=== PATIENT | male | born 1955 | race Caucasian/White ===

== ENCOUNTER 2018-08-27 18:14 | Emergency (ER) | payer OTHER, SELFPAY ==
[2018-08-27 18:15] VITALS: BP 131/78; PULSE 102; RESP 16; TEMP 36.4; O2SAT 99; BMI 38.3
--- NOTE | 2018-08-27 19:31 | ED.DCSUM_ITS ---
- ER Visit Summary Date of Service: 08/27/18 Chief Complaint: [Abscess left groin] History of Present Illness: The patient is a 62 M [presents the emergency department complaint of an abscess to the left groin that he has had for the last 2 days. Patient denies any fevers. He has had some sweats. Patient is not had these before.] Physical Examination: [HEENT-PERRLA, EOMI. Cranial nerves II through XII grossly intact. TMs clear. Mucous membranes moist. No adenopathy. Cardiovascular-regular rate and rhythm without murmur or ectopy Lungs-clear to auscultation, chest wall stable without crepitus or subcu emphysema Abdomen-normoactive bowel sounds, soft, nontender, no rebound or rigidity, no peritoneal signs. Extremities-intact ?4, normal range of motion, normal pulses, atraumatic. Left groin-patient has a soft tissue abscess measuring approximately 3 cm in diameter with surrounding erythema and cellulitis. Central portion slightly fluctuant.] Test Results: [None indicated] Emergency Department Course and Treatment: [Incision and drainage was undertaken of the left groin abscess. Wound was sterilely draped and prepped. Wound cleansed with Shur-Clens. Using 1% lidocaine total of 3 cc used to anesthetize the area locally. Using an 11 blade a 2.5 cm incision was made with large amount of purulent free-flowing debris expressed. I used curved hemostats undermines soft tissues. I did pack the wound loosely with small amount of packing. Clean dressing was applied. Patient was given a dose of Keflex and Bactrim in the emergency department.] Treatment Plan: [Patient advised to follow-up with primary care physician for wound check in 3-5 days. I did outline the area of cellulitis with permanent marker. Patient will be started on Keflex and Bactrim. He will be given a prescription for [place] for pain.] Disposition: [Discharged home in stable condition. Patient advised to return if worsening pain, fever, increased swelling, or condition should worsen anyway.] Impression: [Abscess to groin with incision and drainage Cellulitis left groin] This note was generated with [employer] dictation software. It may contain incorrect words, spelling, and punctuation that were not noted in review of the chart prior to signing ED Disposition - Plan for ED Patient: [facility]errals[facility] [Primary Care Provider] -
--- NOTE | 2018-08-27 19:31 | ED.DEP ---
ED Disposition - Plan for ED Patient: Instructions: ED Abscess IandD Prescriptions: Hydrocodone Bitart/Apap 5-325 [[place] 5MG-325MG] 1 tab PO Q4H PRN PRN 2 Days #10 tab PRN Reason: Pain Cephalexin [Keflex] 500 mg PO Q6 #40 cap Smz/Tmp Ds [Bactrim Ds] 1 tab PO BID #20 tab [facility] [[facility] - 3-5 Days
--- NOTE | 2018-08-27 19:32 | ED.DEP ---
ED Disposition - Plan for ED Patient: Instructions: ED Abscess IandD Prescriptions: Hydrocodone Bitart/Apap 5-325 [[place] 5MG-325MG] 1 tab PO Q4H PRN PRN 2 Days #10 tab PRN Reason: Pain Cephalexin [Keflex] 500 mg PO Q6 #40 cap Smz/Tmp Ds [Bactrim Ds] 1 tab PO BID #20 tab [facility] [[facility] Provider] - 3-5 Days
[2018-08-27 19:41] VITALS: TEMP 36.3
[2018-08-27] MEDS: Smz/Tmp Ds Tablet 1 TABLET PO (19:43)
[2018-08-27] MEDS: Cephalexin 250 MG Capsule 500 MG PO (19:43)
[2018-08-27 19:46] VITALS: PULSE 82; RESP 16
== END 2018-08-27 19:47 | disposition home or self-care (01) ==
PROVIDERS: Emergency Provider Emergency Medicine
DX: L03.314 Cellulitis of groin (principal); I25.10 Atherosclerotic heart disease of native coronary artery without angina pectoris; I10 Essential (primary) hypertension; Z72.0 Tobacco use; Z79.01 Long term (current) use of anticoagulants; Z86.711 Personal history of pulmonary embolism
CPT/HCPCS: 10060; 99283

== ENCOUNTER 2021-12-20 10:57 | Emergency (ER) | payer OTHER, SELFPAY ==
[2021-12-20 10:58] VITALS: BP 139/96; PULSE 83; RESP 20; TEMP 35.7; O2SAT 99; BMI 36.9
--- NOTE | 2021-12-20 11:14 | VDLE_ITS ---
Reason For Study: Pain RIGHT CFV is compressible, spontaneous, phasic, competent and demonstrates normal augmentation. FV is compressible, spontaneous, phasic, competent and demonstrates normal augmentation. RT PerV is compressible. Acute deep vein thrombosis is noted in the PopV, T/P Trunk, PTV and SoleusV. Superficial vein thrombosis is noted in the GSV at prox thigh. Procedure This is a venous duplex using B-mode, color flow and spectral Doppler. Exam performed portable in ED. A preliminary report was called and/or faxed to John. VL/Venous Duplex US, Unilateral Interpretation Summary Acute deep venous thrombosis right popliteal, tibioperoneal trunk, posterior ti bial, and soleus veins. Superficial thrombophlebitis right great saphenous vein in the proximal thigh. Ordering Physician: Princess Lopez Referring Physician: [facility] Performed By: Helene Young RVT
--- NOTE | 2021-12-20 11:14 | EDS_ITS ---
HPI History of Present Illness Chief Complaint: Lower Extremity Injury Detail of Chief Complaint: Right leg pain, concern for DVT Informant: patient Onset/Context/Timing Onset: Days (3 to 4 days) Context: Gradual Onset Current Severity: Moderate Maximum Severity: Moderate Narrative Narrative: Patient presents secondary to right leg pain. He reports significant pain in his right calf when he walks over the past 3 days especially. He does have some chronic back pain but states it is not any worse than baseline. He has a history of pulmonary embolism. He stopped his blood thinners 3 or 4 months ago because it was giving him diarrhea. [facility] Medical History Coronary artery disease Hyperlipidemia Hypertension Pulmonary embolus Home Medications albuterol sulfate 90 mcg/actuation aerosol inhaler (Ventolin HFA) 2 puff inhalation Q4H PRN PRN SOB, wheezing ##3 10/26/14 [Rx Last Taken Unknown] aspirin 81 mg chewable tablet 81 mg PO DAILY@0800 ##90 10/26/14 [Rx Last Taken Unknown] atorvastatin 40 mg tablet 40 mg PO QHS ##90 10/26/14 [Rx Last Taken Unknown] carvedilol 3.125 mg tablet 3.125 mg PO BID ##90 10/26/14 [Rx Last Taken Unknown] apixaban 5 mg (74 tabs) tablets in a dose pack (Eliquis DVT-PE Treat 30D Start) 5 mg PO BID #74 tabs 12/20/21 [Rx Last Taken Unknown] Allergy/AdvReac Type Severity Reaction Status Date / Time No Known Allergies Allergy Verified 12/20/21 10:57 Surgical History S/P PTCA (percutaneous transluminal coronary angioplasty) Social History Smoking Status: Current every day smoker tobacco type: cigarettes ROS ROS ED Constitutional Constitutional ED: Denies chills or fever(s) Eyes Eyes: Denies change in vision or discharge from eye(s) ENT ENT ED: Denies discharge from eye(s), rhinorrhea or sore throat Cardiovascular Cardiovascular: Denies chest pain or palpitations Respiratory/Chest Respiratory/Chest: Denies cough or dyspnea Gastrointestinal Gastrointestinal: Denies abdominal pain, diarrhea, nausea or vomiting Genitourinary Genitourinary ED: Denies difficulty urinating or dysuria Musculoskeletal Musculoskeletal: Reports back pain and extremity pain Integumentary Denies Abrasions or rash Neurologic Neurologic: Denies headache(s) or weakness Allergic/Immunologic Allergic/Immunologic ED: Denies lip swelling or urticaria EXAM Physical Exam Const Vital Signs: 12/20/21 10:58 Temperature 96.2 F L Temperature Source Temporal Pulse Rate 83 Respiratory Rate 20 H Blood Pressure 139/96 H Blood Pressure Mean 110 Pulse Ox 99 Oxygen Delivery Method Room Air Positive well nourished and well developed General Appearance ED: well developed HEENT Reports normocephalic and head/scalp atraumatic Eyes PERRL and EOMs intact bilaterally Neck supple Chest Wall inspection of chest normal and palpation of chest normal Resp normal respiratory effort Resp Narrative: Mild expiratory wheezes Cardio regular rate and regular rhythm GI normal to inspection, nondistended, normoactive bowel sounds Palpation: soft Back/Spine no CVA tenderness Extremity Extremity Narrative: Mild tenderness in the right calf. No overlying skin change. Minimal edema. Strong distal pulses. No bony tenderness of the knee or hip. Neuro oriented x3 and no sensory deficits noted Sensorium / Orientation: alert Motor Exam: strength 5/5 throughout Psych mental status grossly normal Skin no rashes or lesions noted MDM MDM MDM Narrative Medical decision making narrative: Venous ultrasound of the right lower extremity obtained. Treatment and Re-Evaluation Narrative: Venous ultrasound does reveal positive right lower extremity DVT in the popliteal, PT trunk, soleus. Test results discussed with the patient. He had diarrhea on Xarelto so we will try him on Eliquis. First dose will be given here and prescription sent to the pharmacy. Discharge Plan Triage Chief Complaint: Lower Extremity Injury ED Provider: Princess Lopez Dx/Rx/DC Orders Clinical Impression: DVT (deep venous thrombosis) Instructions: ED Deep Vein Thrombosis (DVT) Prescriptions: New Eliquis DVT-PE Treat 30D Start 5 mg (74 tabs) tablets,dose pack 5 mg PO BID Qty: 74 0RF No Action atorvastatin 40 MG tablet 40 mg PO QHS Qty: 90 0RF Label Comments: cholesterol carvedilol 3.125 MG tablet 3.125 mg PO BID Qty: 90 0RF Label Comments: heart/blood pressure aspirin 81 MG tablet,chewable 81 mg PO DAILY@0800 Qty: 90 0RF Label Comments: heart/blood thinner albuterol sulfate [Ventolin HFA] 1 INHALER inhaler 2 puff inhalation Q4H PRN PRN (Reason: SOB, wheezing) Qty: 3 0RF Label Comments: breathing [facility]errals[place] [facility] [Primary Care Provider] - 1-2 Weeks Disposition Disposition: Home, Self Care
[2021-12-20] MEDS: APIXABAN 5 MG TABLET 10 MG PO (11:54)
[2021-12-20 12:13] VITALS: RESP 18
== END 2021-12-20 12:13 | disposition home or self-care (01) ==
LOC: ED 12:10
PROVIDERS: Emergency Provider Emergency Medicine; Visit Provider Emergency Medicine
DX: I82.409 Acute embolism and thrombosis of unspecified deep veins of unspecified lower extremity (principal); G89.29 Other chronic pain; I25.10 Atherosclerotic heart disease of native coronary artery without angina pectoris; E78.5 Hyperlipidemia, unspecified; I10 Essential (primary) hypertension; M54.9 Dorsalgia, unspecified; R19.7 Diarrhea, unspecified; F17.210 Nicotine dependence, cigarettes, uncomplicated
CPT/HCPCS: 93971; 99283

== ENCOUNTER 2022-11-19 05:02 | Emergency (ER) | payer OTHER, MEDICARE, SELFPAY ==
[2022-11-19 05:03] VITALS: BP 154/99; PULSE 77; RESP 20; TEMP 35.2; O2SAT 100; BMI 35.7
--- NOTE | 2022-11-19 05:11 | CT_ITS ---
We are attempting to reach an attending provider to discuss findings. An addendum with communication details will be sent when the communication is complete. CT angiogram of the abdominal aorta with bilateral lower extremity runoff with 3-dimensional reconstructions, with MIP reconstructions Clinical history: ? Arterial occlusion right leg Technique: Multiple helical CT images were obtained from the domes the diaphragms to level of feet after intravenous administration of iodinated contrast with transaxial, coronal and sagittal multiplanar reconstructions. On a separate workstation, 3-dimensional reconstructions were obtained of the arterial vasculature using volume rendering technique and maximal intensity projection technique as per departmental protocol. This CT exam has been performed using low dose vendor recommended protocols to limit radiation exposure to As Low As Reasonably Achievable. RADIATION DOSAGE (If Supplied By Facility): CTDIvol = ( 10.02 ) mGy, DLP = ( 1779.02 ) mGycm COMPARISON: FINDINGS: ABDOMEN / PELVIS: The visualized portions of the liver are unremarkable. The visualized portions of the spleen and pancreas appear to be within normal limits. The gallbladder is unremarkable. The kidneys are unremarkable. The visualized bowel is unremarkable. The pelvic structures appear normal. VASCULAR STRUCTURES: Moderate atherosclerotic disease with good opacification and patency of the visualized abdominal aorta. There appears to be good opacification and patency of the celiac trunk, superior mesenteric artery. There appears to be good opacification and patency noted of the RIGHT and LEFT renal arteries. There appears to be good opacification and patency noted of the inferior mesenteric artery. ARTERIAL STRUCTURES OF THE RIGHT LOWER EXTREMITY: Common iliac artery: Appears patent with good opacification. External iliac artery: Appears patent with good opacification. Internal iliac arteries: Appears patent with good opacification. Common femoral artery: Appears patent with good opacification. Superficial femoral arteries: Occluded in the mid thigh. Popliteal artery: Nonopacified. Anterior tibial artery: Nonopacified. Posterior tibial artery: Nonopacified. Peroneal artery: Nonopacified. ARTERIAL STRUCTURES OF THE LEFT LOWER EXTREMITY: Common iliac artery: Appears patent with good opacification. External iliac artery: Appears patent with good opacification. Internal iliac arteries: Appears patent with good opacification. Common femoral artery: Appears patent with good opacification. Superficial femoral arteries: There is severe atherosclerotic disease of the left superficial femoral artery with maximal stenosis is estimated at 80% near the adductor canal.. Popliteal artery: Mild atherosclerotic disease with good opacification. Anterior tibial artery: Appears patent with good opacification. Posterior tibial artery: Appears patent with good opacification. Peroneal artery: Appears patent with opacification. CT/CTA Abd w/Runoff W/WO Contrast IMPRESSION: There is occlusion of the right superficial femoral artery in the mid thigh. There is severe atherosclerotic disease of the left superficial femoral artery with maximal stenosis is estimated at 80% near the adductor canal. There is open wound in the right inguinal region with wound VAC. Electronically Signed: Jaime Wang MD at 7:20 EDT ,
[2022-11-19] MEDS: Morphine 4 MG/ML Syringe IV (05:17)
[2022-11-19] MEDS: 0.9% Normal Saline 1,000 ML 999 ML IV (05:17)
[2022-11-19] MEDS: Ondansetron 4 MG/2 ML Vial IV (05:17)
[2022-11-19 05:40] LABS: Absolute Lymphocyte Count 2.41 X10^3/uL (0.83-4.51); Absolute Neutrophil Count 5.4 X10^3/uL (2.0-7.7); Basophil# 0.09 X10^3/uL; Eosinophil# 0.18 X10^3/uL; Hematocrit 46.5 % (40-54); Hemoglobin 14.9 g/dL (13.0-16.5); Lymphocyte # 2.41 X10^3/ul (0.83-4.51); Lymphocyte % 26.2 % (19-41); Mean Corpuscular Hgb 28.9 pg (27.0-32.0); Mean Corpuscular Volume 90.3 fL (80-94); Mean Platelet Vol. 9.9 fl (6.2-12.0); Monocyte# 1.04 X10^3/uL; Monocyte% 11.3 % (0-10); NRBC Flagged by Analyzer 0 % (0-5); Neutrophil # 5.44 X10^3/uL (2.7-7.7); Platelet Count 238 K/mm3 (150-450); RBC Distribution Width CV 14.6 % (11.6-14.6); RBC Distribution Width SD 48.6 fl (35.1-43.9); Red Blood Count 5.15 M/mm3 (4.6-6.2); White Blood Count 9.2 K/mm3 (4.4-11.0)
[2022-11-19 05:48] LABS: International Normalized Ratio 1.5; Partial Thromboplast Time 27.7 Seconds (24.1-36.2); Prothrombin Time (Protime)PT. 17.7 SECONDS (11.7-14.9)
[2022-11-19 05:53] LABS: Anion Gap 6 (5-15); BUN 20 mg/dL (7-18); BUN/Creat Ratio 24.8 RATIO (10-20); Chloride 107 mmol/L (98-107); Creatinine, Serum 0.81 mg/dL (0.70-1.30); EST Glomerular Filtration Rate 102 mL/min (>60); Est Glom Filt Rate - Afr Amer 123 mL/min (>60); Estimated Creatinine Clearance 95.55 ml/min; Glucose 223 mg/dL (74-106); Potassium 3.9 mmol/L (3.5-5.1); Sodium Level 136 mmol/L (136-145)
[2022-11-19 06:02] LABS: Lactic Acid 2.3 mmol/L (0.4-1.9)
[2022-11-19] MEDS: HYDROmorphone 1 MG/ML Syringe IV (06:22)
--- NOTE | 2022-11-19 06:39 | EDS_ITS ---
HPI History of Present Illness Chief Complaint: Lower Extremity Injury Narrative Narrative: Patient is a 67-year-old male with past medical history of peripheral vascular disease/arterial occlusion who is currently on Coumadin. He was at the [facility] roughly 2 months ago where he had a endovascular procedure for revascularization of his right lower leg. Patient states has been doing well and he went to bed last night around 11 PM. He states he woke around 1 AM with increased pain to his right leg. He states he took an oxycodone to see if this would help. He states that initially of the pain seemed to improve but then began to worsen. Secondary to his he called EMS and presents for evaluation. Patient states has been taking his medications as [facility] Medical History Coronary artery disease Hyperlipidemia Hypertension Pulmonary embolus Home Medications albuterol sulfate 90 mcg/actuation aerosol inhaler (Ventolin HFA) 2 puff inhalation Q4H PRN PRN SOB, wheezing ##3 10/26/14 [Rx Last Taken Unknown] aspirin 81 mg chewable tablet 81 mg PO DAILY@0800 ##90 10/26/14 [Rx Last Taken Unknown] atorvastatin 40 mg tablet 40 mg PO QHS ##90 10/26/14 [Rx Last Taken Unknown] carvedilol 3.125 mg tablet 3.125 mg PO BID ##90 10/26/14 [Rx Last Taken Unknown] apixaban 5 mg (74 tabs) tablets in a dose pack (Eliquis DVT-PE Treat 30D Start) 5 mg PO BID #74 tabs 12/20/21 [Rx Last Taken Unknown] Allergy/AdvReac Type Severity Reaction Status Date / Time heparin Allergy PT UNSURE Verified 11/19/22 05:45 OF REACTION nortriptyline Allergy PT UNSURE Verified 11/19/22 05:45 OF REACTION rivaroxaban Allergy PT UNSURE Verified 11/19/22 05:45 OF REACTION Surgical History S/P PTCA (percutaneous transluminal coronary angioplasty) Social History Smoking Status: Current every day smoker tobacco type: cigarettes ROS ROS ED Constitutional Constitutional ED: Denies chills or fever(s) ENT ENT ED: Denies sore throat Cardiovascular Cardiovascular: Denies chest pain or palpitations Respiratory/Chest Respiratory/Chest: Denies cough or dyspnea Gastrointestinal Gastrointestinal: Denies abdominal pain, diarrhea, nausea or vomiting Genitourinary Genitourinary ED: Denies dysuria Musculoskeletal Musculoskeletal: Reports other Details: Positive right leg pain Integumentary Reports other Details: Positive right lower leg discoloration Neurologic Neurologic: Reports weakness; Denies headache(s) or paresthesias Hematologic/Lymphatic Hematologic/Lymphatic: Reports easy bleeding and easy bruising EXAM Physical Exam Const Vital Signs: 11/19/22 05:03 Temperature 95.4 F L Temperature Source Temporal Pulse Rate 77 Respiratory Rate 20 H Blood Pressure 154/99 H Blood Pressure Mean 117 Pulse Ox 100 Oxygen Delivery Method Room Air Positive well nourished and well developed General Appearance ED: well developed HEENT Reports moist mucous membranes Eyes PERRL and EOMs intact bilaterally Neck supple Resp normal respiratory effort Resp Narrative: Breath sounds are diminished throughout with rhonchi in the bilateral bases consistent with history of smoking but no signs of respiratory distress Cardio regular rate and regular rhythm Rate: other Other Details: Radial pulses are plus 2 out of 4 bilaterally are equal and symmetric GI non-tender and non-distended GI Narrative: Abdomen is soft nontender nondistended with hypoactive bowel sounds no voluntary guarding or rigidity no pulsatile mass or fluid with Auscultation: hypoactive bowel sounds Palpation: soft Extremity Extremity Narrative: Patient's right lower extremity is mottled compared to the left beginning around the mid ward region down to the toes. The temperature is cooler on the right lower leg compared to the left but it is not cold to touch. Capillary refill is less than 2 seconds on the right lower leg as well at the great toe. Patient still reports normal sensation of the right and left leg. The patient is able to lift right leg against gravity and he is able to plantar and dorsiflex at the ankle but strength and range of motion in this activity is decreased on the right compared to left. Please note I cannot palpate or Doppler pulses in the posterior tibial dorsalis pedis or popliteal region of the right lower leg. Neuro oriented x3 and CN's II-XII intact bilaterally Sensorium / Orientation: alert Psych mental status grossly normal Skin Skin Narrative: Soft tissue changes to the right lower leg as documented above Also patient has a open wound in the right groin from his previous endovascular procedure with packing in place. No secondary changes to suggest infection at the site. MDM MDM MDM Narrative Medical decision making narrative: Patient presented to the ER hypertensive but otherwise with stable vital. He reported he awoke with spontaneous pain in his right leg without trauma. Differential diagnosis includes DVT versus arterial occlusion versus bony injury versus cellulitis or abscess. As the patient has history of peripheral arterial disease and he has coolness and mottling acute arterial occlusion is the most likely diagnosis. However as his capillary refill is less than 2 seconds and the temperature difference is just cool not cold and sensation and muscular activity still present this would indicate patient has collateral circulation. Initially heparin was ordered but the patient has history of heparin-induced thrombocytopenia and therefore the vascular surgeon recommended against this. He did recommend argatroban and the pharmacy was contacted we do not carry this medication and therefore cannot be given. [facility] Marina and he will be sent to their facility for further evaluation of his vascular occlusion. We discussed flying the patient to their facility as he has had symptoms now for almost 6 hours but they do not have a helipad and therefore he will go by EMS to their center for further care History & Record Review Discussion w/independent historian: EMS personnel and Patient Lab Data Attestation: I reviewed the patient's lab results. Labs: Laboratory Results - last 24 hr 11/19/22 11/19/22 11/19/22 05:15 05:15 05:15 WBC 9.2 RBC 5.15 Hgb 14.9 Hct 46.5 MCV 90.3 MCH 28.9 MCHC 32.0 RDW Std Deviation 48.6 H RDW Coeff of Yesi 14.6 Plt Count 238 MPV 9.9 Immature Gran % (Auto) 0.500 Neut % (Auto) 59.0 Lymph % (Auto) 26.2 [place] % (Auto) 11.3 H Eos % (Auto) 2.0 Baso % (Auto) 1.0 Absolute Neuts (auto) 5.4 Absolute Lymphs (auto) 2.41 Nucleated RBC % 0 PT 17.7 H INR 1.5 APTT 27.7 Sodium 136 Potassium 3.9 Chloride 107 Carbon Dioxide 23.0 Anion Gap 6 BUN 20 H Creatinine 0.81 Estim Creat Clear Calc 95.55 Est GFR (MDRD) Af Amer 123 Est GFR (MDRD) Non-Af 102 BUN/Creatinine Ratio 24.8 H Glucose 223 H Lactic Acid Calcium 9.0 11/19/22 05:15 WBC RBC Hgb Hct MCV MCH MCHC RDW Std Deviation RDW Coeff of Yesi Plt Count MPV Immature Gran % (Auto) Neut % (Auto) Lymph % (Auto) [place] % (Auto) Eos % (Auto) Baso % (Auto) Absolute Neuts (auto) Absolute Lymphs (auto) Nucleated RBC % PT INR APTT Sodium Potassium Chloride Carbon Dioxide Anion Gap BUN Creatinine Estim Creat Clear Calc Est GFR (MDRD) Af Amer Est GFR (MDRD) Non-Af BUN/Creatinine Ratio Glucose Lactic Acid 2.3 H* Calcium Management Discussion w/another healthcare provider: Community Marketing Coordinator Critical Care Time Critical Care Time: Yes Critical care time (excluding procedures): Discussing w/Patient &/or Family/Refrigeration Mechanic Helper, Discussing w/Consultants, Arranging Admission or Transfer and - (Please note critical care time of 33 minutes) Discharge Plan Triage Chief Complaint: Lower Extremity Injury ED Provider: Christopher Fontaine Dx/Rx/DC Orders Clinical Impression: Arterial occlusion, lower extremity, Hypertension, Current use of terminal operator anticoagulation Prescriptions: No Action atorvastatin 40 MG tablet 40 mg PO QHS Qty: 90 0RF Label Comments: cholesterol carvedilol 3.125 MG tablet 3.125 mg PO BID Qty: 90 0RF Label Comments: heart/blood pressure aspirin 81 MG tablet,chewable 81 mg PO DAILY@0800 Qty: 90 0RF Label Comments: heart/blood thinner albuterol sulfate [Ventolin HFA] 1 INHALER inhaler 2 puff inhalation Q4H PRN PRN (Reason: SOB, wheezing) Qty: 3 0RF Label Comments: breathing Eliquis DVT-PE Treat 30D Start 5 mg (74 tabs) tablets,dose pack 5 mg PO BID Qty: 74 0RF [facility] [[facility] Provider] - Disposition Disposition: Acute Care Hospital Discharge Location: Department of [facility]
--- NOTE | 2022-11-19 06:44 | ED.RN ---
OBTAINED PERMISSION FROM PT TO TALK TO DTDaryl ALEGRIA. SHE WAS UPDATED ON PT'S CONDITION AND HIS ESTIMATED DEPARTURE TIME.
[2022-11-19 06:56] VITALS: BP 142/70; PULSE 74; RESP 20; O2SAT 99
--- NOTE | 2022-11-19 06:59 | ED.RN ---
report called to [facility]
[2022-11-19 09:36] LABS: Reflex Lactate? Y
== END 2022-11-19 07:05 | disposition short-term general hospital (02) ==
PROVIDERS: Emergency Provider Emergency Medicine; Visit Provider Emergency Medicine
DX: I70.90 Unspecified atherosclerosis (principal); I73.9 Peripheral vascular disease, unspecified; I25.10 Atherosclerotic heart disease of native coronary artery without angina pectoris; Z79.01 Long term (current) use of anticoagulants; I10 Essential (primary) hypertension; F17.210 Nicotine dependence, cigarettes, uncomplicated; E78.5 Hyperlipidemia, unspecified; Z79.899 Other long term (current) drug therapy; Z79.82 Long term (current) use of aspirin; Z98.61 Coronary angioplasty status
CPT/HCPCS: 75635; 80048; 83605; 85025; 85610; 85730; 99285; J7030; Q9967; A4216; J2405

== ENCOUNTER → 2023-12-10 | Outpatient (REF) | payer MEDICARE, SELFPAY ==
[2023-12-10 08:59] LABS: Absolute Lymphocyte Count 1.35 X10^3/uL (0.83-4.51); Absolute Neutrophil Count 5.9 X10^3/uL (2.0-7.7); Basophil# 0.09 X10^3/uL; Basophil% 1.1 % (0-1); Eosinophil# 0.26 X10^3/uL; Eosinophils% 3.1 % (0-5); Hematocrit 44.9 % (40-54); Hemoglobin 13.6 g/dL (13.0-16.5); Lymphocyte # 1.35 X10^3/ul (0.83-4.51); Lymphocyte % 16.1 % (19-41); Mean Corp Hgb Conc 30.3 g/dL (32-36); Mean Corpuscular Hgb 26.8 pg (27.0-32.0); Mean Corpuscular Volume 88.6 fL (80-94); Mean Platelet Vol. 10.4 fl (6.2-12.0); Monocyte# 0.75 X10^3/uL; Monocyte% 8.9 % (0-10); NRBC Flagged by Analyzer 0 % (0-5); Neutrophil # 5.89 X10^3/uL (2.7-7.7); Platelet Count 243 K/mm3 (150-450); RBC Distribution Width CV 16.5 % (11.6-14.6); RBC Distribution Width SD 53.8 fl (35.1-43.9); Red Blood Count 5.07 M/mm3 (4.6-6.2); White Blood Count 8.4 K/mm3 (4.4-11.0)
[2023-12-10 09:49] LABS: Anion Gap 6 (5-15); BUN 11 mg/dL (7-18); BUN/Creat Ratio 12.8 RATIO (10-20); Calcium,Total 9.1 mg/dL (8.5-10.1); Chloride 105 mmol/L (98-107); Creatinine, Serum 0.86 mg/dL (0.70-1.30); EST Glomerular Filtration Rate 94 mL/min (>60); Est Glom Filt Rate - Afr Amer 114 mL/min (>60); Glucose 103 mg/dL (74-106); Potassium 4.4 mmol/L (3.5-5.1); Sodium Level 137 mmol/L (136-145)
== END ==
LOC: OLS.WHLTCC 04:00
PROVIDERS: Referring Provider Internal Medicine; Visit Provider Internal Medicine
DX: E11.9 Type 2 diabetes mellitus without complications (principal)
CPT/HCPCS: 36415; 80048; 85025

== ENCOUNTER → 2023-12-14 | Outpatient (REF) | payer MEDICARE, SELFPAY ==
[2023-12-14 07:50] LABS: Absolute Lymphocyte Count 1.65 X10^3/uL (0.83-4.51); Absolute Neutrophil Count 5.8 X10^3/uL (2.0-7.7); Basophil# 0.06 X10^3/uL; Basophil% 0.7 % (0-1); Eosinophil# 0.18 X10^3/uL; Eosinophils% 2.1 % (0-5); Hematocrit 44.8 % (40-54); Hemoglobin 13.4 g/dL (13.0-16.5); Lymphocyte # 1.65 X10^3/ul (0.83-4.51); Lymphocyte % 19.3 % (19-41); Mean Corp Hgb Conc 29.9 g/dL (32-36); Mean Corpuscular Hgb 26.3 pg (27.0-32.0); Mean Platelet Vol. 10.4 fl (6.2-12.0); Monocyte% 9.4 % (0-10); NRBC Flagged by Analyzer 0 % (0-5); Neutrophil # 5.81 X10^3/uL (2.7-7.7); Neutrophil % 67.9 % (47-70); Platelet Count 261 K/mm3 (150-450); RBC Distribution Width CV 16.1 % (11.6-14.6); RBC Distribution Width SD 52.6 fl (35.1-43.9); Red Blood Count 5.09 M/mm3 (4.6-6.2); White Blood Count 8.6 K/mm3 (4.4-11.0)
[2023-12-14 08:08] LABS: Anion Gap 5 (5-15); BUN 8 mg/dL (7-18); BUN/Creat Ratio 11.4 RATIO (10-20); Calcium,Total 9.1 mg/dL (8.5-10.1); Chloride 107 mmol/L (98-107); EST Glomerular Filtration Rate 120 mL/min (>60); Est Glom Filt Rate - Afr Amer 145 mL/min (>60); Glucose 85 mg/dL (74-106); Sodium Level 138 mmol/L (136-145)
== END ==
LOC: OLS.WHLEAS 05:00
PROVIDERS: Visit Provider Nurse Practitioner Adult Health
DX: E11.9 Type 2 diabetes mellitus without complications (principal)
CPT/HCPCS: 36415; 80048; 85025

== ENCOUNTER → 2023-12-24 | Outpatient (REF) | payer MEDICARE, SELFPAY ==
[2023-12-24 09:59] LABS: Absolute Lymphocyte Count 1.69 X10^3/uL (0.83-4.51); Absolute Neutrophil Count 4.3 X10^3/uL (2.0-7.7); Basophil# 0.07 X10^3/uL; Eosinophil# 0.15 X10^3/uL; Eosinophils% 2.1 % (0-5); Hemoglobin 13.8 g/dL (13.0-16.5); Lymphocyte # 1.69 X10^3/ul (0.83-4.51); Mean Corpuscular Hgb 26.3 pg (27.0-32.0); Mean Corpuscular Volume 87.8 fL (80-94); Mean Platelet Vol. 10.4 fl (6.2-12.0); Monocyte# 0.82 X10^3/uL; Monocyte% 11.6 % (0-10); NRBC Flagged by Analyzer 0 % (0-5); Neutrophil # 4.29 X10^3/uL (2.7-7.7); Neutrophil % 60.9 % (47-70); Platelet Count 259 K/mm3 (150-450); RBC Distribution Width CV 15.9 % (11.6-14.6); RBC Distribution Width SD 51.3 fl (35.1-43.9); Red Blood Count 5.24 M/mm3 (4.6-6.2); White Blood Count 7.1 K/mm3 (4.4-11.0)
[2023-12-24 10:15] LABS: Anion Gap 6 (5-15); BUN 16 mg/dL (7-18); BUN/Creat Ratio 18.9 RATIO (10-20); Calcium,Total 9.3 mg/dL (8.5-10.1); Chloride 102 mmol/L (98-107); Creatinine, Serum 0.85 mg/dL (0.70-1.30); EST Glomerular Filtration Rate 96 mL/min (>60); Est Glom Filt Rate - Afr Amer 116 mL/min (>60); Glucose 101 mg/dL (74-106); Potassium 3.6 mmol/L (3.5-5.1); Sodium Level 139 mmol/L (136-145)
== END ==
LOC: OLS.WHLEAS 04:00
PROVIDERS: Referring Provider Internal Medicine; Visit Provider Internal Medicine
DX: E11.9 Type 2 diabetes mellitus without complications (principal)
CPT/HCPCS: 36415; 80048; 85025

== ENCOUNTER → 2023-12-28 | Outpatient (REF) | payer MEDICARE, SELFPAY ==
[2023-12-28 07:14] LABS: Absolute Lymphocyte Count 1.77 X10^3/uL (0.83-4.51); Absolute Neutrophil Count 4.4 X10^3/uL (2.0-7.7); Basophil# 0.06 X10^3/uL; Basophil% 0.8 % (0-1); Eosinophils% 1.4 % (0-5); Hematocrit 48.1 % (40-54); Hemoglobin 14.4 g/dL (13.0-16.5); Lymphocyte # 1.77 X10^3/ul (0.83-4.51); Lymphocyte % 24.6 % (19-41); Mean Corp Hgb Conc 29.9 g/dL (32-36); Mean Corpuscular Hgb 25.8 pg (27.0-32.0); Mean Corpuscular Volume 86.2 fL (80-94); Mean Platelet Vol. 10.5 fl (6.2-12.0); Monocyte# 0.85 X10^3/uL; Monocyte% 11.8 % (0-10); NRBC Flagged by Analyzer 0 % (0-5); Neutrophil # 4.38 X10^3/uL (2.7-7.7); Neutrophil % 60.8 % (47-70); Platelet Count 221 K/mm3 (150-450); RBC Distribution Width SD 50.5 fl (35.1-43.9); Red Blood Count 5.58 M/mm3 (4.6-6.2); White Blood Count 7.2 K/mm3 (4.4-11.0)
[2023-12-28 07:41] LABS: Anion Gap 7 (5-15); BUN 15 mg/dL (7-18); BUN/Creat Ratio 16.4 RATIO (10-20); Calcium,Total 9.2 mg/dL (8.5-10.1); Chloride 103 mmol/L (98-107); Creatinine, Serum 0.91 mg/dL (0.70-1.30); EST Glomerular Filtration Rate 88 mL/min (>60); Est Glom Filt Rate - Afr Amer 107 mL/min (>60); Glucose 129 mg/dL (74-106); Potassium 3.7 mmol/L (3.5-5.1); Sodium Level 137 mmol/L (136-145)
== END ==
LOC: OLS.WHLEAS 05:00
PROVIDERS: Referring Provider Nurse Practitioner Adult Health; Visit Provider Nurse Practitioner Adult Health
DX: E11.9 Type 2 diabetes mellitus without complications (principal)
CPT/HCPCS: 36415; 80048; 85025

== ENCOUNTER → 2024-01-09 | Outpatient (REF) | payer MEDICARE, SELFPAY ==
[2024-01-09 08:57] LABS: Hemoglobin A1c 6.3 % (3.8-5.6)
[2024-01-09 09:02] LABS: AST(SGOT) 26 U/L (15-37); Alanine Aminotransfer ALT/SGPT 19 U/L (16-61); Alkaline Phosphatase 93 U/L (45-117); Bilirubin, Direct 0.07 mg/dL (0.00-0.30)
== END ==
LOC: OLS.WHLEAS 05:00
PROVIDERS: Referring Provider Internal Medicine; Visit Provider Internal Medicine
DX: E11.9 Type 2 diabetes mellitus without complications (principal)
CPT/HCPCS: 36415; 80076; 83036

== ENCOUNTER → 2024-01-11 | Outpatient (REF) | payer MEDICARE, SELFPAY ==
[2024-01-11 06:34] LABS: Basophil# 0.07 X10^3/uL; Basophil% 0.9 % (0-1); Eosinophil# 0.13 X10^3/uL; Eosinophils% 1.7 % (0-5); Hematocrit 45.6 % (40-54); Lymphocyte % 22.9 % (19-41); Mean Corp Hgb Conc 30.7 g/dL (32-36); Mean Corpuscular Hgb 26.2 pg (27.0-32.0); Mean Corpuscular Volume 85.4 fL (80-94); Mean Platelet Vol. 10.7 fl (6.2-12.0); Monocyte# 0.79 X10^3/uL; Monocyte% 10.1 % (0-10); NRBC Flagged by Analyzer 0 % (0-5); Neutrophil # 5.02 X10^3/uL (2.7-7.7); Neutrophil % 63.9 % (47-70); Platelet Count 223 K/mm3 (150-450); RBC Distribution Width CV 15.9 % (11.6-14.6); RBC Distribution Width SD 49.2 fl (35.1-43.9); Red Blood Count 5.34 M/mm3 (4.6-6.2); White Blood Count 7.9 K/mm3 (4.4-11.0)
[2024-01-11 06:53] LABS: Anion Gap 5 (5-15); BUN 12 mg/dL (7-18); BUN/Creat Ratio 15.2 RATIO (10-20); Chloride 107 mmol/L (98-107); Creatinine, Serum 0.79 mg/dL (0.70-1.30); EST Glomerular Filtration Rate 104 mL/min (>60); Est Glom Filt Rate - Afr Amer 126 mL/min (>60); Glucose 112 mg/dL (74-106); Sodium Level 139 mmol/L (136-145)
== END ==
LOC: OLS.WHLEAS 05:00
PROVIDERS: Visit Provider Internal Medicine
DX: E11.9 Type 2 diabetes mellitus without complications (principal)
CPT/HCPCS: 36415; 80048; 85025

== ENCOUNTER → 2024-01-18 | Outpatient (REF) | payer MEDICARE, SELFPAY ==
[2024-01-18 08:13] LABS: Anion Gap 3 (5-15); BUN 10 mg/dL (7-18); BUN/Creat Ratio 11.7 RATIO (10-20); Calcium,Total 9.2 mg/dL (8.5-10.1); Chloride 109 mmol/L (98-107); Creatinine, Serum 0.86 mg/dL (0.70-1.30); EST Glomerular Filtration Rate 95 mL/min (>60); Est Glom Filt Rate - Afr Amer 115 mL/min (>60); Glucose 116 mg/dL (74-106); Potassium 4.4 mmol/L (3.5-5.1); Sodium Level 141 mmol/L (136-145)
[2024-01-18 08:16] LABS: Absolute Neutrophil Count 5.4 X10^3/uL (2.0-7.7); Basophil# 0.06 X10^3/uL; Basophil% 0.7 % (0-1); Eosinophil# 0.15 X10^3/uL; Eosinophils% 1.8 % (0-5); Hematocrit 49.1 % (40-54); Hemoglobin 14.5 g/dL (13.0-16.5); Lymphocyte % 23.6 % (19-41); Mean Corp Hgb Conc 29.5 g/dL (32-36); Mean Corpuscular Hgb 26.4 pg (27.0-32.0); Mean Corpuscular Volume 89.4 fL (80-94); Mean Platelet Vol. 10.8 fl (6.2-12.0); Monocyte# 0.83 X10^3/uL; Monocyte% 9.8 % (0-10); NRBC Flagged by Analyzer 0 % (0-5); Neutrophil # 5.39 X10^3/uL (2.7-7.7); Neutrophil % 63.6 % (47-70); Platelet Count 241 K/mm3 (150-450); RBC Distribution Width CV 16.3 % (11.6-14.6); RBC Distribution Width SD 53.5 fl (35.1-43.9); Red Blood Count 5.49 M/mm3 (4.6-6.2); White Blood Count 8.5 K/mm3 (4.4-11.0)
== END ==
LOC: OLS.WHLEAS 05:00
PROVIDERS: Visit Provider Internal Medicine
DX: E11.9 Type 2 diabetes mellitus without complications (principal)
CPT/HCPCS: 36415; 80048; 85025

== ENCOUNTER → 2024-01-25 05:00 | Outpatient (REF) | payer MEDICARE, SELFPAY ==
[2024-01-25 07:17] LABS: Absolute Lymphocyte Count 1.81 X10^3/uL (0.83-4.51); Absolute Neutrophil Count 6.1 X10^3/uL (2.0-7.7); Basophil# 0.04 X10^3/uL; Basophil% 0.4 % (0-1); Eosinophil# 0.28 X10^3/uL; Hematocrit 45.3 % (40-54); Hemoglobin 13.6 g/dL (13.0-16.5); Lymphocyte # 1.81 X10^3/ul (0.83-4.51); Lymphocyte % 19.6 % (19-41); Mean Corpuscular Hgb 26.4 pg (27.0-32.0); Mean Corpuscular Volume 87.8 fL (80-94); Mean Platelet Vol. 10.6 fl (6.2-12.0); Monocyte# 0.99 X10^3/uL; Monocyte% 10.7 % (0-10); NRBC Flagged by Analyzer 0 % (0-5); Neutrophil # 6.09 X10^3/uL (2.7-7.7); Platelet Count 200 K/mm3 (150-450); RBC Distribution Width SD 51.8 fl (35.1-43.9); Red Blood Count 5.16 M/mm3 (4.6-6.2); White Blood Count 9.2 K/mm3 (4.4-11.0)
[2024-01-25 07:50] LABS: Anion Gap 7 (5-15); BUN 19 mg/dL (7-18); Calcium,Total 8.9 mg/dL (8.5-10.1); Chloride 107 mmol/L (98-107); Creatinine, Serum 0.83 mg/dL (0.70-1.30); EST Glomerular Filtration Rate 99 mL/min (>60); Est Glom Filt Rate - Afr Amer 119 mL/min (>60); Glucose 127 mg/dL (74-106); Potassium 4.2 mmol/L (3.5-5.1); Sodium Level 136 mmol/L (136-145)
== END ==
LOC: OLS.WHLEAS 05:00
PROVIDERS: Visit Provider Internal Medicine
DX: E11.9 Type 2 diabetes mellitus without complications (principal)
CPT/HCPCS: 36415; 80048; 85025

== ENCOUNTER → 2024-02-07 11:40 | Outpatient (REF) | payer MEDICARE, SELFPAY | LOC: OLS.WHLTSB 11:40 | PROVIDERS: Visit Provider Internal Medicine | DX: Z89.511 Acquired absence of right leg below knee (principal) | CPT/HCPCS: 87070; 87077; 87186; 87205 ==

== ENCOUNTER → 2024-02-15 05:00 | Outpatient (REF) | payer MEDICARE, SELFPAY ==
[2024-02-15 08:48] LABS: Absolute Lymphocyte Count 2.27 X10^3/uL (0.83-4.51); Absolute Neutrophil Count 6.5 X10^3/uL (2.0-7.7); Basophil# 0.07 X10^3/uL; Basophil% 0.7 % (0-1); Eosinophil# 0.07 X10^3/uL; Eosinophils% 0.7 % (0-5); Hematocrit 49.4 % (40-54); Hemoglobin 14.8 g/dL (13.0-16.5); Lymphocyte # 2.27 X10^3/ul (0.83-4.51); Lymphocyte % 22.4 % (19-41); Mean Corpuscular Hgb 26.1 pg (27.0-32.0); Mean Corpuscular Volume 87.3 fL (80-94); Mean Platelet Vol. 10.7 fl (6.2-12.0); Monocyte# 1.12 X10^3/uL; Monocyte% 11.1 % (0-10); NRBC Flagged by Analyzer 0 % (0-5); Neutrophil # 6.54 X10^3/uL (2.7-7.7); Neutrophil % 64.6 % (47-70); Platelet Count 218 K/mm3 (150-450); RBC Distribution Width CV 16.7 % (11.6-14.6); RBC Distribution Width SD 52.7 fl (35.1-43.9); Red Blood Count 5.66 M/mm3 (4.6-6.2); White Blood Count 10.1 K/mm3 (4.4-11.0)
[2024-02-15 09:16] LABS: Anion Gap 5 (5-15); BUN 20 mg/dL (7-18); BUN/Creat Ratio 18.5 RATIO (10-20); Calcium,Total 9.2 mg/dL (8.5-10.1); Chloride 103 mmol/L (98-107); Creatinine, Serum 1.08 mg/dL (0.70-1.30); EST Glomerular Filtration Rate 72 mL/min (>60); Est Glom Filt Rate - Afr Amer 88 mL/min (>60); Glucose 137 mg/dL (74-106); Potassium 4.7 mmol/L (3.5-5.1); Sodium Level 138 mmol/L (136-145)
== END ==
LOC: OLS.WHLEAS 05:00
PROVIDERS: Visit Provider Internal Medicine
DX: E11.9 Type 2 diabetes mellitus without complications (principal)
CPT/HCPCS: 36415; 80048; 85025

== ENCOUNTER → 2024-02-22 05:00 | Outpatient (REF) | payer MEDICARE, SELFPAY ==
[2024-02-22 07:18] LABS: Absolute Lymphocyte Count 1.82 X10^3/uL (0.83-4.51); Absolute Neutrophil Count 5.5 X10^3/uL (2.0-7.7); Basophil# 0.05 X10^3/uL; Basophil% 0.6 % (0-1); Eosinophil# 0.11 X10^3/uL; Eosinophils% 1.3 % (0-5); Hematocrit 45.2 % (40-54); Hemoglobin 13.6 g/dL (13.0-16.5); Lymphocyte # 1.82 X10^3/ul (0.83-4.51); Mean Corp Hgb Conc 30.1 g/dL (32-36); Mean Corpuscular Hgb 26.4 pg (27.0-32.0); Mean Corpuscular Volume 87.6 fL (80-94); Mean Platelet Vol. 10.4 fl (6.2-12.0); Monocyte# 0.82 X10^3/uL; Monocyte% 9.9 % (0-10); NRBC Flagged by Analyzer 0 % (0-5); Neutrophil # 5.45 X10^3/uL (2.7-7.7); Neutrophil % 65.7 % (47-70); Platelet Count 209 K/mm3 (150-450); RBC Distribution Width CV 16.6 % (11.6-14.6); RBC Distribution Width SD 53.1 fl (35.1-43.9); Red Blood Count 5.16 M/mm3 (4.6-6.2); White Blood Count 8.3 K/mm3 (4.4-11.0)
[2024-02-22 10:07] LABS: Anion Gap 7 (5-15); BUN 15 mg/dL (7-18); BUN/Creat Ratio 18.2 RATIO (10-20); Chloride 107 mmol/L (98-107); Creatinine, Serum 0.82 mg/dL (0.70-1.30); EST Glomerular Filtration Rate 99 mL/min (>60); Est Glom Filt Rate - Afr Amer 120 mL/min (>60); Glucose 147 mg/dL (74-106); Potassium 4.1 mmol/L (3.5-5.1); Sodium Level 139 mmol/L (136-145)
== END ==
LOC: OLS.WHLEAS 05:00
PROVIDERS: Visit Provider Internal Medicine
DX: E11.9 Type 2 diabetes mellitus without complications (principal)
CPT/HCPCS: 36415; 80048; 85025

== ENCOUNTER → 2024-02-29 | Outpatient (REF) | payer MEDICARE, SELFPAY ==
[2024-02-29 07:09] LABS: Absolute Lymphocyte Count 1.83 X10^3/uL (0.83-4.51); Absolute Neutrophil Count 3.7 X10^3/uL (2.0-7.7); Basophil# 0.04 X10^3/uL; Basophil% 0.6 % (0-1); Eosinophils% 1.6 % (0-5); Hematocrit 43.6 % (40-54); Hemoglobin 13.6 g/dL (13.0-16.5); Lymphocyte # 1.83 X10^3/ul (0.83-4.51); Lymphocyte % 28.9 % (19-41); Mean Corp Hgb Conc 31.2 g/dL (32-36); Mean Corpuscular Hgb 26.7 pg (27.0-32.0); Mean Corpuscular Volume 85.5 fL (80-94); Mean Platelet Vol. 10.9 fl (6.2-12.0); Monocyte# 0.65 X10^3/uL; Monocyte% 10.3 % (0-10); NRBC Flagged by Analyzer 0 % (0-5); Neutrophil # 3.68 X10^3/uL (2.7-7.7); Neutrophil % 58.1 % (47-70); Platelet Count 187 K/mm3 (150-450); RBC Distribution Width CV 16.4 % (11.6-14.6); RBC Distribution Width SD 51.3 fl (35.1-43.9); White Blood Count 6.3 K/mm3 (4.4-11.0)
[2024-02-29 07:37] LABS: Anion Gap 6 (5-15); BUN 12 mg/dL (7-18); BUN/Creat Ratio 16.2 RATIO (10-20); Calcium,Total 8.8 mg/dL (8.5-10.1); Chloride 110 mmol/L (98-107); Creatinine, Serum 0.74 mg/dL (0.70-1.30); EST Glomerular Filtration Rate 112 mL/min (>60); Est Glom Filt Rate - Afr Amer 135 mL/min (>60); Glucose 111 mg/dL (74-106); Potassium 4.3 mmol/L (3.5-5.1); Sodium Level 138 mmol/L (136-145)
== END ==
LOC: OLS.WHLEAS 05:00
PROVIDERS: Visit Provider Internal Medicine
DX: E11.9 Type 2 diabetes mellitus without complications (principal)
CPT/HCPCS: 36415; 80048; 85025

== ENCOUNTER → 2024-03-07 | Outpatient (REF) | payer MEDICARE, SELFPAY ==
[2024-03-07 08:14] LABS: Absolute Lymphocyte Count 1.92 X10^3/uL (0.83-4.51); Absolute Neutrophil Count 3.6 X10^3/uL (2.0-7.7); Basophil# 0.05 X10^3/uL; Basophil% 0.8 % (0-1); Eosinophil# 0.11 X10^3/uL; Eosinophils% 1.7 % (0-5); Hematocrit 46.9 % (40-54); Hemoglobin 14.4 g/dL (13.0-16.5); Lymphocyte # 1.92 X10^3/ul (0.83-4.51); Lymphocyte % 30.1 % (19-41); Mean Corp Hgb Conc 30.7 g/dL (32-36); Mean Corpuscular Hgb 26.3 pg (27.0-32.0); Mean Corpuscular Volume 85.6 fL (80-94); Mean Platelet Vol. 10.7 fl (6.2-12.0); Monocyte# 0.65 X10^3/uL; Monocyte% 10.2 % (0-10); NRBC Flagged by Analyzer 0 % (0-5); Neutrophil # 3.63 X10^3/uL (2.7-7.7); Neutrophil % 56.9 % (47-70); Platelet Count 190 K/mm3 (150-450); RBC Distribution Width CV 17.1 % (11.6-14.6); RBC Distribution Width SD 53.5 fl (35.1-43.9); Red Blood Count 5.48 M/mm3 (4.6-6.2); White Blood Count 6.4 K/mm3 (4.4-11.0)
[2024-03-07 08:33] LABS: Anion Gap 5 (5-15); BUN 12 mg/dL (7-18); BUN/Creat Ratio 15.3 RATIO (10-20); Calcium,Total 9.5 mg/dL (8.5-10.1); Chloride 108 mmol/L (98-107); Creatinine, Serum 0.78 mg/dL (0.70-1.30); EST Glomerular Filtration Rate 105 mL/min (>60); Est Glom Filt Rate - Afr Amer 127 mL/min (>60); Glucose 116 mg/dL (74-106); Sodium Level 140 mmol/L (136-145)
== END ==
LOC: OLS.WHLEAS 05:00
PROVIDERS: Visit Provider Internal Medicine
DX: E11.9 Type 2 diabetes mellitus without complications (principal); E78.5 Hyperlipidemia, unspecified
CPT/HCPCS: 36415; 80048; 85025

== ENCOUNTER → 2024-03-10 | Outpatient (REF) | payer MEDICARE, SELFPAY | LOC: OLS.WHLEAS 12:30 | PROVIDERS: Visit Provider Internal Medicine | DX: L03.115 Cellulitis of right lower limb (principal) | CPT/HCPCS: 87070; 87077; 87186; 87205 ==

== ENCOUNTER → 2024-03-14 05:00 | Outpatient (REF) | payer MEDICARE, SELFPAY ==
[2024-03-14 09:23] LABS: Basophil# 0.05 X10^3/uL; Basophil% 0.7 % (0-1); Eosinophil# 0.23 X10^3/uL; Eosinophils% 3.3 % (0-5); Hematocrit 45.2 % (40-54); Hemoglobin 13.6 g/dL (13.0-16.5); Lymphocyte % 26.9 % (19-41); Mean Corp Hgb Conc 30.1 g/dL (32-36); Mean Corpuscular Volume 86.4 fL (80-94); Mean Platelet Vol. 10.8 fl (6.2-12.0); Monocyte# 0.83 X10^3/uL; Monocyte% 11.7 % (0-10); NRBC Flagged by Analyzer 0 % (0-5); Neutrophil # 3.99 X10^3/uL (2.7-7.7); Neutrophil % 56.4 % (47-70); Platelet Count 202 K/mm3 (150-450); RBC Distribution Width CV 17.5 % (11.6-14.6); RBC Distribution Width SD 55.5 fl (35.1-43.9); Red Blood Count 5.23 M/mm3 (4.6-6.2); White Blood Count 7.1 K/mm3 (4.4-11.0)
[2024-03-14 09:54] LABS: Anion Gap 6 (5-15); BUN 11 mg/dL (7-18); BUN/Creat Ratio 13.7 RATIO (10-20); Calcium,Total 8.7 mg/dL (8.5-10.1); Chloride 105 mmol/L (98-107); EST Glomerular Filtration Rate 102 mL/min (>60); Est Glom Filt Rate - Afr Amer 123 mL/min (>60); Glucose 107 mg/dL (74-106); Potassium 4.3 mmol/L (3.5-5.1); Sodium Level 138 mmol/L (136-145)
== END ==
LOC: OLS.WHLEAS 05:00
PROVIDERS: Visit Provider Internal Medicine
DX: E11.9 Type 2 diabetes mellitus without complications (principal)
CPT/HCPCS: 36415; 80048; 85025

== ENCOUNTER → 2024-03-20 | Outpatient (REF) | payer MEDICARE, SELFPAY ==
[2024-03-20 08:55] LABS: Vancomycin, Trough Level 21.3 ug/mL (5.0-15.0)
== END ==
LOC: OLS.WHLEAS 05:00
PROVIDERS: Visit Provider Internal Medicine
DX: L03.115 Cellulitis of right lower limb (principal)
CPT/HCPCS: 36415; 80202

== ENCOUNTER → 2024-03-21 05:00 | Outpatient (REF) | payer MEDICARE, SELFPAY ==
[2024-03-21 08:02] LABS: Absolute Lymphocyte Count 1.59 X10^3/uL (0.83-4.51); Absolute Neutrophil Count 3.8 X10^3/uL (2.0-7.7); Basophil# 0.06 X10^3/uL; Basophil% 0.9 % (0-1); Eosinophil# 0.26 X10^3/uL; Hematocrit 46.7 % (40-54); Hemoglobin 14.4 g/dL (13.0-16.5); Lymphocyte # 1.59 X10^3/ul (0.83-4.51); Lymphocyte % 24.6 % (19-41); Mean Corp Hgb Conc 30.8 g/dL (32-36); Mean Corpuscular Hgb 26.3 pg (27.0-32.0); Mean Corpuscular Volume 85.4 fL (80-94); Mean Platelet Vol. 10.1 fl (6.2-12.0); Monocyte% 10.8 % (0-10); NRBC Flagged by Analyzer 0 % (0-5); Neutrophil % 58.9 % (47-70); Platelet Count 208 K/mm3 (150-450); RBC Distribution Width CV 17.6 % (11.6-14.6); RBC Distribution Width SD 55.1 fl (35.1-43.9); Red Blood Count 5.47 M/mm3 (4.6-6.2); White Blood Count 6.5 K/mm3 (4.4-11.0)
[2024-03-21 08:14] LABS: Anion Gap 5 (5-15); BUN 9 mg/dL (7-18); BUN/Creat Ratio 11.9 RATIO (10-20); Calcium,Total 8.6 mg/dL (8.5-10.1); Chloride 107 mmol/L (98-107); Creatinine, Serum 0.76 mg/dL (0.70-1.30); EST Glomerular Filtration Rate 109 mL/min (>60); Est Glom Filt Rate - Afr Amer 132 mL/min (>60); Glucose 106 mg/dL (74-106); Potassium 3.9 mmol/L (3.5-5.1); Sodium Level 140 mmol/L (136-145)
== END ==
LOC: OLS.WHLEAS 05:00
PROVIDERS: Visit Provider Internal Medicine
DX: E11.9 Type 2 diabetes mellitus without complications (principal)
CPT/HCPCS: 36415; 80048; 85025

== ENCOUNTER → 2024-04-04 | Outpatient (REF) | payer MEDICARE, SELFPAY ==
[2024-04-04 07:46] LABS: Absolute Lymphocyte Count 1.84 X10^3/uL (0.83-4.51); Absolute Neutrophil Count 4.2 X10^3/uL (2.0-7.7); Basophil# 0.06 X10^3/uL; Basophil% 0.9 % (0-1); Eosinophil# 0.12 X10^3/uL; Eosinophils% 1.7 % (0-5); Hematocrit 49.1 % (40-54); Hemoglobin 15.2 g/dL (13.0-16.5); Lymphocyte # 1.84 X10^3/ul (0.83-4.51); Lymphocyte % 26.7 % (19-41); Mean Corpuscular Volume 87.1 fL (80-94); Mean Platelet Vol. 10.3 fl (6.2-12.0); Monocyte# 0.67 X10^3/uL; Monocyte% 9.7 % (0-10); NRBC Flagged by Analyzer 0 % (0-5); Neutrophil # 4.15 X10^3/uL (2.7-7.7); Neutrophil % 60.4 % (47-70); Platelet Count 241 K/mm3 (150-450); RBC Distribution Width CV 19.1 % (11.6-14.6); RBC Distribution Width SD 58.6 fl (35.1-43.9); Red Blood Count 5.64 M/mm3 (4.6-6.2); White Blood Count 6.9 K/mm3 (4.4-11.0)
[2024-04-04 08:00] LABS: AST(SGOT) 18 U/L (15-37); Alanine Aminotransfer ALT/SGPT 20 U/L (16-61); Albumin, Serum 3.4 g/dL (3.2-5.0); Alkaline Phosphatase 118 U/L (45-117); Anion Gap 4 (5-15); BUN 8 mg/dL (7-18); BUN/Creat Ratio 8.4 RATIO (10-20); Bilirubin, Direct 0.11 mg/dL (0.00-0.30); Calcium,Total 8.7 mg/dL (8.5-10.1); Chloride 108 mmol/L (98-107); Cholesterol 121 mg/dL (200); Creatinine, Serum 0.95 mg/dL (0.70-1.30); EST Glomerular Filtration Rate 84 mL/min (>60); Est Glom Filt Rate - Afr Amer 102 mL/min (>60); Globulin 4.1 g/dL (2.2-4.2); Glucose 167 mg/dL (74-106); High Density Lipoprotein 45 mg/dL; Potassium 4.6 mmol/L (3.5-5.1); Protein, Total 7.5 g/dL (6.4-8.2); Sodium Level 137 mmol/L (136-145); Triglycerides 337 mg/dL; Very Low Density Lipoprotein 67 mg/dL (5-40)
[2024-04-04 08:25] LABS: Hemoglobin A1c 6.5 % (3.8-5.6)
[2024-04-04 10:28] LABS: Vitamin B12 411 pg/mL (211-911); Vitamin D,25 Hydroxy 20.8 ng/mL
== END ==
LOC: OLS.WHLEAS 05:00
PROVIDERS: Visit Provider Internal Medicine
DX: E11.9 Type 2 diabetes mellitus without complications (principal); J44.9 Chronic obstructive pulmonary disease, unspecified; M62.561 Muscle wasting and atrophy, not elsewhere classified, right lower leg; M62.562 Muscle wasting and atrophy, not elsewhere classified, left lower leg; E55.9 Vitamin D deficiency, unspecified
CPT/HCPCS: 36415; 80048; 80061; 80076; 82306; 82607; 83036; 85025

== ENCOUNTER → 2024-04-10 | Outpatient (REF) | payer MEDICARE, SELFPAY | LOC: OLS.WHLEAS 05:00 | PROVIDERS: Visit Provider Internal Medicine | DX: E55.9 Vitamin D deficiency, unspecified (principal) | CPT/HCPCS: 36415; 82306 ==

== ENCOUNTER 2024-05-02 13:43 | Emergency (ER) | payer MEDICARE, MEDICAID, SELFPAY ==
[2024-05-02 13:43] VITALS: BP 160/109; PULSE 80; RESP 13; TEMP 36.9; O2SAT 96; BMI 37.7
--- NOTE | 2024-05-02 14:13 | ED.VIS.GI ---
HPI HPI - GI History of Present Illness Chief Complaint: Laceration [facility] Medical History Coronary artery disease Hyperlipidemia Hypertension Pulmonary embolus Home Medications ?Medication ?Instructions ?Recorded ?Last Taken ?Type albuterol sulfate 90 mcg/actuation 2 puff inhalation Q4H PRN PRN SOB, 10/26/14 Unknown Rx aerosol inhaler (Ventolin HFA) wheezing ##3 aspirin 81 mg chewable tablet 81 mg PO DAILY@0800 ##90 10/26/14 Unknown Rx atorvastatin 40 mg tablet 40 mg PO QHS ##90 10/26/14 Unknown Rx carvedilol 3.125 mg tablet 3.125 mg PO BID ##90 10/26/14 Unknown Rx apixaban 5 mg (74 tabs) tablets in 5 mg PO BID #74 tabs 12/20/21 Unknown Rx a dose pack (George Mobile DVT-PE Treat 30D Start) pregabalin 200 mg capsule (Lyrica) 200 mg PO TID #90 caps 12/19/23 Unknown Rx aspirin 81 mg tablet,delayed 81 mg PO DAILY 05/02/24 Unknown History release atorvastatin 80 mg tablet 80 mg PO DAILY 05/02/24 Unknown History budesonide 160 mcg-glycopyr 9 inh inhalation 05/02/24 Unknown History mcg-formot 4.8 mcg/actuation HFA inhaler (Breztri Aerosphere) buspirone 30 mg tablet 30 mg PO BID 05/02/24 Unknown History diclofenac sodium 1 % topical gel 1 ea topical 4X/DAY 05/02/24 Unknown History duloxetine 30 mg capsule,delayed 30 mg PO DAILY 05/02/24 Unknown History release ergocalciferol (vitamin D2) 1,250 PO 05/02/24 Unknown History mcg (50,000 unit) capsule (Vitamin D2) gemfibrozil 600 mg tablet 600 mg PO BID 05/02/24 Unknown History insulin glargine-yfgn 100 unit/mL unit subcut 05/02/24 Unknown History (3 mL) subcutaneous pen isosorbide mononitrate 30 mg 30 mg PO DAILY 05/02/24 Unknown History tablet,extended release 24 hr melatonin 5 mg tablet PO 05/02/24 Unknown History oxycodone 5 mg tablet PO 05/02/24 Unknown History semaglutide 2 mg/dose (8 mg/3 mL) mg subcut 05/02/24 Unknown History subcutaneous pen injector (Ozempic) sennosides 8.6 mg-docusate sodium 1 tab PO DAILY 05/02/24 Unknown History 50 mg tablet (Senexon-S) spironolactone 25 mg tablet 25 mg PO BID 05/02/24 Unknown History torsemide 20 mg tablet 20 mg PO DAILY 05/02/24 Unknown History Allergy/AdvReac Type Severity Reaction Status Date / Time heparin Allergy PT UNSURE Verified 05/02/24 13:46 OF REACTION nortriptyline Allergy PT UNSURE Verified 05/02/24 13:46 OF REACTION rivaroxaban Allergy PT UNSURE Verified 05/02/24 13:46 OF REACTION Surgical History S/P PTCA (percutaneous transluminal coronary angioplasty) Social History Smoking Status: Current every day smoker tobacco type: cigarettes EXAM Physical Exam Const Vital Signs: 05/02/24 13:43 Temperature 98.5 F Temperature Source Oral Pulse Rate 80 Respiratory Rate 13 Blood Pressure 160/109 H Blood Pressure Mean 126 Pulse Ox 96 Oxygen Delivery Method Room Air Discharge Plan Triage Chief Complaint: Laceration ED Provider: Giuliano Cisneros Dx/Rx/DC Orders Prescriptions: No Action atorvastatin 40 MG tablet 40 mg PO QHS Qty: 90 0RF Patient Comments: cholesterol carvedilol 3.125 MG tablet 3.125 mg PO BID Qty: 90 0RF Patient Comments: heart/blood pressure aspirin 81 MG tablet,chewable 81 mg PO DAILY@0800 Qty: 90 0RF Patient Comments: heart/blood thinner albuterol sulfate [Ventolin HFA] 1 INHALER inhaler 2 puff inhalation Q4H PRN PRN (Reason: SOB, wheezing) Qty: 3 0RF Patient Comments: breathing Eliquis DVT-PE Treat 30D Start 5 mg (74 tabs) tablets,dose pack 5 mg PO BID Qty: 74 0RF atorvastatin 80 mg tablet 80 mg PO DAILY torsemide 20 mg tablet 20 mg PO DAILY isosorbide mononitrate 30 mg tablet extended release 24 hr 30 mg PO DAILY sennosides-docusate sodium [Senexon-S] 8.6-50 mg tablet 1 tab PO DAILY aspirin 81 mg tablet,delayed release (DR/EC) 81 mg PO DAILY spironolactone 25 mg tablet 25 mg PO BID gemfibrozil 600 mg tablet 600 mg PO BID buspirone 30 mg tablet 30 mg PO BID ergocalciferol (vitamin D2) [Vitamin D2] 1,250 mcg (50,000 unit) capsule PO oxycodone 5 mg tablet PO duloxetine 30 mg capsule,delayed release(DR/EC) 30 mg PO DAILY diclofenac sodium 1 % gel 1 ea topical 4X/DAY melatonin 5 mg tablet PO Breztri Aerosphere 160-9-4.8 mcg/actuation HFA aerosol inhaler inhalation insulin glargine-yfgn 100 unit/mL (3 mL) insulin pen subcut Ozempic 2 mg/dose (8 mg/3 mL) pen injector subcut pregabalin [Lyrica] 200 mg capsule 200 mg PO TID Qty: 90 0RF [facility] [[facility] Provider] - Print Language: Yi
--- NOTE | 2024-05-02 14:21 | RAD_ITS ---
HISTORY: laceration 1st toe. TECHNIQUE: XR Toes Min 2 Views. COMPARISON: None. FINDINGS: BONES : Cortical destruction and fragmentation in the distal phalanx of the first toe. No other acute osseous abnormality identified. JOINTS: No dislocation. SOFT TISSUES: Soft tissue injury of the first toe with laceration and edema no radiopaque foreign body identified. RAD/Toe(s) Min 2 Views IMPRESSION: Soft tissue injury of the left first toe with fracture or infection of the first distal phalanx. Electronically Signed: Faye Acosta MD at 14:57 EST ,
--- NOTE | 2024-05-02 14:23 | EX.ED.GENINJ ---
HPI <CHASTITY Parish - Last Filed: 05/02/24 16:34> History of Present Illness Chief Complaint: Laceration Narrative Narrative: Patient presenting today with a laceration to the base of the left first toe along the plantar aspect. He reports that he was on his power wheelchair when he coughed and accidentally hit the control causing the wheelchair to go forward and causing his foot to get stuck under the dresser causing the laceration. He reports that his tetanus is up-to-date. 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 PFSH <CHASTITY Parish - Last Filed: 05/02/24 16:34> [facility] [place] Medical History Pulmonary embolus Coronary artery disease Hyperlipidemia Hypertension Home Medications ?Medication ?Instructions ?Recorded ?Last Taken ?Type albuterol sulfate 90 mcg/actuation 2 puff inhalation Q4H PRN PRN SOB, 10/26/14 Unknown Rx aerosol inhaler (Ventolin HFA) wheezing ##3 aspirin 81 mg chewable tablet 81 mg PO DAILY@0800 ##90 10/26/14 Unknown Rx atorvastatin 40 mg tablet 40 mg PO QHS ##90 10/26/14 Unknown Rx carvedilol 3.125 mg tablet 3.125 mg PO BID ##90 10/26/14 Unknown Rx apixaban 5 mg (74 tabs) tablets in 5 mg PO BID #74 tabs 12/20/21 Unknown Rx a dose pack (Eliquis DVT-PE Treat 30D Start) pregabalin 200 mg capsule (Lyrica) 200 mg PO TID #90 caps 12/19/23 Unknown Rx aspirin 81 mg tablet,delayed 81 mg PO DAILY 05/02/24 Unknown History release atorvastatin 80 mg tablet 80 mg PO DAILY 05/02/24 Unknown History budesonide 160 mcg-glycopyr 9 inh inhalation 05/02/24 Unknown History mcg-formot 4.8 mcg/actuation HFA inhaler (Breztri Aerosphere) buspirone 30 mg tablet 30 mg PO BID 05/02/24 Unknown History cephalexin 500 mg capsule 500 mg PO Q8H 7 days #21 caps 05/02/24 Unknown Rx diclofenac sodium 1 % topical gel 1 ea topical 4X/DAY 05/02/24 Unknown History duloxetine 30 mg capsule,delayed 30 mg PO DAILY 05/02/24 Unknown History release ergocalciferol (vitamin D2) 1,250 PO 05/02/24 Unknown History mcg (50,000 unit) capsule (Vitamin D2) gemfibrozil 600 mg tablet 600 mg PO BID 05/02/24 Unknown History insulin glargine-yfgn 100 unit/mL unit subcut 05/02/24 Unknown History (3 mL) subcutaneous pen isosorbide mononitrate 30 mg 30 mg PO DAILY 05/02/24 Unknown History tablet,extended release 24 hr melatonin 5 mg tablet PO 05/02/24 Unknown History oxycodone 5 mg tablet PO 05/02/24 Unknown History semaglutide 2 mg/dose (8 mg/3 mL) mg subcut 05/02/24 Unknown History subcutaneous pen injector (Ozempic) sennosides 8.6 mg-docusate sodium 1 tab PO DAILY 05/02/24 Unknown History 50 mg tablet (Senexon-S) spironolactone 25 mg tablet 25 mg PO BID 05/02/24 Unknown History torsemide 20 mg tablet 20 mg PO DAILY 05/02/24 Unknown History Allergy/AdvReac Type Severity Reaction Status Date / Time heparin Allergy PT UNSURE Verified 05/02/24 13:46 OF REACTION nortriptyline Allergy PT UNSURE Verified 05/02/24 13:46 OF REACTION rivaroxaban Allergy PT UNSURE Verified 05/02/24 13:46 OF REACTION Surgical History S/P PTCA (percutaneous transluminal coronary angioplasty) Social History Smoking Status: Current every day smoker tobacco type: cigarettes ROS <CHASTITY Parish - Last Filed: 05/02/24 16:34> ROS ED Constitutional Constitutional ED: Denies chills or fever(s) Cardiovascular Cardiovascular: Denies chest pain Respiratory/Chest Respiratory/Chest: Denies dyspnea Musculoskeletal Musculoskeletal: Denies arthralgias or myalgias Integumentary Reports other Details: Laceration Neurologic Neurologic: Denies weakness EXAM <CHASTITY Parish - Last Filed: 05/02/24 16:34> Physical Exam Const Vital Signs: 05/02/24 13:43 05/02/24 15:57 Temperature 98.5 F 97.2 F L Temperature Source Oral Pulse Rate 80 85 Respiratory Rate 13 14 Blood Pressure 160/109 H 137/99 H Blood Pressure Mean 126 111 Pulse Ox 96 95 Oxygen Delivery Method Room Air Positive well nourished, well developed and no apparent distress General Appearance ED: well developed HEENT Reports normocephalic and head/scalp atraumatic Mouth ED: Yes moist mucous membranes normal Eyes PERRL and EOMs intact bilaterally Neck full ROM and supple Chest Wall inspection of chest normal Resp normal respiratory effort and clear to auscultation bilaterally Cardio regular rate and regular rhythm Back/Spine normal ROM and normal to inspection Extremity full ROM Extremity Narrative: 5 cm linear full-thickness laceration to the base of the left first toe across the plantar aspect of the foot. There is exposed tendon, the tendon appears intact, patient is able to flex and extend the toe. There is a 2.5 cm partial-thickness linear laceration just above it. Left DP pulse 2+, good cap refill, sensation intact. Neuro oriented x3, CN's II-XII intact bilaterally, moves all extremities, no focal motor deficits and no sensory deficits noted Sensorium / Orientation: awake and alert Psych mental status grossly normal and thought process normal Skin Skin Narrative: Laceration left first toe <Dr. Giuliano Cisneros MD - Last Filed: 05/02/24 14:31> Physical Exam Const Vital Signs: 05/02/24 13:43 05/02/24 15:57 Temperature 98.5 F 97.2 F L Temperature Source Oral Pulse Rate 80 85 Respiratory Rate 13 14 Blood Pressure 160/109 H 137/99 H Blood Pressure Mean 126 111 Pulse Ox 96 95 Oxygen Delivery Method Room Air PROC <CHASTITY Parish - Last Filed: 05/02/24 16:34> Procedures Lacerations Laceration: Length: 5 cm Depth: Sub Q Prep: Chlorhexadine Laceration repair: Irrigated, Lidocaine, Skin sutures and Wound explored Irrigated (ml): 900 Number of Sutures/Matteo: 8 Suture Information: Ethilon, Horizontal, Mattress and 4-0 Comment: Second laceration is 2.5 cm in length and required five 4-0 Ethilon simple interrupted sutures [facility] <CHASTITY Parish - Last Filed: 05/02/24 16:34> [facility] MDM Narrative Medical decision making narrative: Patient presenting today with a laceration to the base of the left first toe across the plantar aspect of the foot. There is exposed tendon, the tendon appears intact, patient is able to flex and extend the toe. This will require suture repair. X-ray was obtained and does show multiple fractures as interpreted by the attending ED physician. He will be placed on Keflex with first dose here. He was also given Venus for pain. He does have oxycodone at home to take for his pain as needed. The attending did speak with podiatry, they would like to see him on Sunday. He has been given a referral. Strict return instructions were discussed. Wound care instructions were discussed. The wound was bandaged with bacitracin ointment. He was given a postop shoe. Patient discharged in stable condition I have personally performed a face to face assessment of the patient and have reviewed the THEE Note. I performed a substantive portion of the visit including all aspects of the following. My [place]uther[place] findings include: History is 68-year-old male uses a wheelchair. As needed the power on the wheelchair lunged forward caught his left great toe on a dresser has an extensive laceration to the bottom of his left foot between the MTP and the toe. This occurred about 2 hours ago. Tetanus up-to-date. Denies any other injuries. Exam is [68-year-old male vital signs stable afebrile. H EENT exam unremarkable. Neck nontender. Lungs clear. Heart regular rhythm no murmur. Rate about 80. Chest wall ribs nontender. Abdomen soft nontender. Back nontender. Moving all 4 extremities. 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 Left foot is chronic nail changes. The left great toe on the bottom surface there is a long deep wide laceration between the metatarsophalangeal joint of toe. It does involve the skin, subcu tissue and exposes the flexor tendon but it appears to be intact. Mild oozing of blood he is on blood thinner. He does have touch sensation is able to wiggle his toes. There is no bony deformity.] Medical Decision Making [tetanus is up-to-date. X-ray of be obtained to rule out fracture. Area be locally anesthetized. Washed and copiously irrigated. Explored. Closed using Ethilon suture. He will be placed on antibiotic Keflex to try to prevent infection and follow-up with podiatry.] Other additions or changes: [None] Radiography X-Ray: Read by ED Physician Diagnostic Testing: Clinical Impression(s) from Imaging Studies Toe X-Ray 05/02/24 14:21 IMPRESSION: Soft tissue injury of the left first toe with fracture or infection of the first distal phalanx. Electronically Signed: Faye Acosta MD at 14:57 EST , <Dr. Giuliano Cisneros MD - Last Filed: 05/02/24 14:31> [employer] Narrative Medical decision making narrative: Patient presenting today with a laceration to the base of the left first toe across the plantar aspect of the foot. There is exposed tendon, the tendon appears intact, patient is able to flex and extend the toe. This will require suture repair. X-ray will be obtained to rule out toe fracture. He will be placed on antibiotics with first dose here. I have personally performed a face to face assessment of the patient and have reviewed the THEE Note. I performed a substantive portion of the visit including all aspects of the following. My [place]uther[place] findings include: History is 68-year-old male uses a wheelchair. As needed the power on the wheelchair lunged forward caught his left great toe on a dresser has an extensive laceration to the bottom of his left foot between the MTP and the toe. This occurred about 2 hours ago. Tetanus up-to-date. Denies any other injuries. Exam is [68-year-old male vital signs stable afebrile. H EENT exam unremarkable. Neck nontender. Lungs clear. Heart regular rhythm no murmur. Rate about 80. Chest wall ribs nontender. Abdomen soft nontender. Back nontender. Moving all 4 extremities. 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 Left foot is chronic nail changes. The left great toe on the bottom surface there is a long deep wide laceration between the metatarsophalangeal joint of toe. It does involve the skin, subcu tissue and exposes the flexor tendon but it appears to be intact. Mild oozing of blood he is on blood thinner. He does have touch sensation is able to wiggle his toes. There is no bony deformity.] Medical Decision Making [tetanus is up-to-date. X-ray of be obtained to rule out fracture. Area be locally anesthetized. Washed and copiously irrigated. Explored. Closed using Ethilon suture. He will be placed on antibiotic Keflex to try to prevent infection and follow-up with podiatry.] Other additions or changes: [None] History & Record Review Discussion w/independent historian: Patient Additional record(s) reviewed:: Prior inpatient record, Prior outpatient record, Prior ED visit and Prior labs Radiography Diagnostic Testing: Clinical Impression(s) from Imaging Studies Toe X-Ray 05/02/24 14:21 IMPRESSION: Soft tissue injury of the left first toe with fracture or infection of the first distal phalanx. Electronically Signed: Faye Acosta MD at 14:57 EST Reading Location ID and State: [facility] / [place] Tel , Service support , Discharge Plan Triage Chief Complaint: Laceration ED Midlevel Provider: Mildred Ferrari ED Provider: Giuliano Cisneros Dx/Rx/DC Orders Clinical Impression: Laceration of great toe of left foot, Open fracture of great toe Instructions: ED Laceration Extremity, ED Fracture, Toe, Open Prescriptions: New cephalexin 500 mg capsule 500 mg PO Q8H 7 Days Qty: 21 0RF No Action atorvastatin 40 MG tablet 40 mg PO QHS Qty: 90 0RF Patient Comments: cholesterol carvedilol 3.125 MG tablet 3.125 mg PO BID Qty: 90 0RF Patient Comments: heart/blood pressure aspirin 81 MG tablet,chewable 81 mg PO DAILY@0800 Qty: 90 0RF Patient Comments: heart/blood thinner albuterol sulfate [Ventolin HFA] 1 INHALER inhaler 2 puff inhalation Q4H PRN PRN (Reason: SOB, wheezing) Qty: 3 0RF Patient Comments: breathing Eliquis DVT-PE Treat 30D Start 5 mg (74 tabs) tablets,dose pack 5 mg PO BID Qty: 74 0RF atorvastatin 80 mg tablet 80 mg PO DAILY torsemide 20 mg tablet 20 mg PO DAILY isosorbide mononitrate 30 mg tablet extended release 24 hr 30 mg PO DAILY sennosides-docusate sodium [Senexon-S] 8.6-50 mg tablet 1 tab PO DAILY aspirin 81 mg tablet,delayed release (DR/EC) 81 mg PO DAILY spironolactone 25 mg tablet 25 mg PO BID gemfibrozil 600 mg tablet 600 mg PO BID buspirone 30 mg tablet 30 mg PO BID ergocalciferol (vitamin D2) [Vitamin D2] 1,250 mcg (50,000 unit) capsule PO oxycodone 5 mg tablet PO duloxetine 30 mg capsule,delayed release(DR/EC) 30 mg PO DAILY diclofenac sodium 1 % gel 1 ea topical 4X/DAY melatonin 5 mg tablet PO Breztri Aerosphere 160-9-4.8 mcg/actuation HFA aerosol inhaler inhalation insulin glargine-yfgn 100 unit/mL (3 mL) insulin pen subcut Ozempic 2 mg/dose (8 mg/3 mL) pen injector subcut pregabalin [Lyrica] 200 mg capsule 200 mg PO TID Qty: 90 0RF [facility] Care Provider: [facility] Referrals: João Tom DPM [Med Staff - Active Staff] - As soon as possible [facility] [Primary Care Provider] - As soon as possible Activity Restrictions/Additional Instructions: Elevate your toe to decrease pain, swelling and bleeding. Tylenol for pain. Clean daily with soap and water or peroxide and water. Dry thoroughly. Do not let it soak in bath water. Keep dry and clean. Wear clean white pair of socks. Stitches out in 14 days. Follow-up either with the [facility] or our local manager route, Dr. Tom, as soon as possible have this reevaluated. This has a high risk of being infected. It is a deep laceration. You have multiple fractures of the and or distal phalanx of your left great toe. The laceration was deep down to the tendon. Also you have poor circulation. We will start you on the antibiotic Keflex 4 times a day For the next week to try to prevent any infection. Print Language: Armenian Disposition Disposition: Home, Self Care Discharge Date/Time: 05/02/24 16:06
[2024-05-02] MEDS: Lidocaine 1% (20 ml mdv) 20 ML Vial 10 ML INFILT (15:21)
[2024-05-02] MEDS: HYDROcodone Bitartrate/Apap 5/325 Tablet PO (15:56)
[2024-05-02] MEDS: Cephalexin 250 MG Capsule 500 MG PO (15:56)
[2024-05-02 15:57] VITALS: BP 137/99; PULSE 85; RESP 14; TEMP 36.2; O2SAT 95
== END 2024-05-02 16:06 | disposition home or self-care (01) ==
PROVIDERS: Emergency Provider Emergency Medicine; Visit Provider Emergency Medicine
DX: S92.422B Displaced fracture of distal phalanx of left great toe, initial encounter for open fracture (principal); Z89.511 Acquired absence of right leg below knee; Z79.4 Long term (current) use of insulin; Z79.01 Long term (current) use of anticoagulants; I25.10 Atherosclerotic heart disease of native coronary artery without angina pectoris; E78.5 Hyperlipidemia, unspecified; Z86.711 Personal history of pulmonary embolism; I10 Essential (primary) hypertension; Z79.899 Other long term (current) drug therapy; Z79.82 Long term (current) use of aspirin; F17.210 Nicotine dependence, cigarettes, uncomplicated; W26.8XXA Contact with other sharp object(s), not elsewhere classified, initial encounter
CPT/HCPCS: 12002; 73660; 99285

== ENCOUNTER → 2024-05-02 | Outpatient (REF) | payer MEDICARE, SELFPAY ==
[2024-05-02 07:13] LABS: Absolute Lymphocyte Count 1.58 X10^3/uL (0.83-4.51); Absolute Neutrophil Count 3.7 X10^3/uL (2.0-7.7); Basophil# 0.05 X10^3/uL; Basophil% 0.8 % (0-1); Eosinophil# 0.11 X10^3/uL; Eosinophils% 1.8 % (0-5); Hemoglobin 14.1 g/dL (13.0-16.5); Lymphocyte # 1.58 X10^3/ul (0.83-4.51); Lymphocyte % 26.2 % (19-41); Mean Corp Hgb Conc 31.3 g/dL (32-36); Mean Corpuscular Hgb 27.6 pg (27.0-32.0); Mean Corpuscular Volume 88.1 fL (80-94); Mean Platelet Vol. 10.5 fl (6.2-12.0); Monocyte# 0.62 X10^3/uL; Monocyte% 10.3 % (0-10); NRBC Flagged by Analyzer 0 % (0-5); Neutrophil # 3.65 X10^3/uL (2.7-7.7); Neutrophil % 60.4 % (47-70); Platelet Count 211 K/mm3 (150-450); RBC Distribution Width CV 17.7 % (11.6-14.6); RBC Distribution Width SD 58.1 fl (35.1-43.9); Red Blood Count 5.11 M/mm3 (4.6-6.2)
[2024-05-02 07:38] LABS: Anion Gap 4 (5-15); BUN 12 mg/dL (7-18); BUN/Creat Ratio 16.5 RATIO (10-20); Calcium,Total 8.7 mg/dL (8.5-10.1); Chloride 107 mmol/L (98-107); Creatinine, Serum 0.73 mg/dL (0.70-1.30); EST Glomerular Filtration Rate 114 mL/min (>60); Est Glom Filt Rate - Afr Amer 138 mL/min (>60); Glucose 121 mg/dL (74-106); Potassium 4.2 mmol/L (3.5-5.1); Sodium Level 139 mmol/L (136-145)
== END ==
LOC: OLS.WHLEAS 05:00
PROVIDERS: Visit Provider Internal Medicine
DX: E11.9 Type 2 diabetes mellitus without complications (principal)
CPT/HCPCS: 36415; 80048; 85025

== ENCOUNTER → 2024-07-07 05:00 | Outpatient (REF) | payer MEDICARE, MEDICAID, SELFPAY ==
[2024-07-07 10:53] LABS: Erythrocyte Sedimentation Rate 23 mm/hr (0-20)
[2024-07-07 11:00] LABS: Absolute Lymphocyte Count 1.92 X10^3/uL (0.83-4.51); Absolute Neutrophil Count 4.8 X10^3/uL (2.0-7.7); Basophil# 0.06 X10^3/uL; Basophil% 0.8 % (0-1); Eosinophil# 0.18 X10^3/uL; Eosinophils% 2.3 % (0-5); Hematocrit 37.1 % (40-54); Hemoglobin 11.8 g/dL (13.0-16.5); Lymphocyte # 1.92 X10^3/ul (0.83-4.51); Lymphocyte % 24.6 % (19-41); Mean Corp Hgb Conc 31.8 g/dL (32-36); Mean Corpuscular Hgb 27.1 pg (27.0-32.0); Mean Corpuscular Volume 85.3 fL (80-94); Mean Platelet Vol. 10.8 fl (6.2-12.0); Monocyte% 10.2 % (0-10); NRBC Flagged by Analyzer 0 % (0-5); Neutrophil # 4.81 X10^3/uL (2.7-7.7); Neutrophil % 61.6 % (47-70); Platelet Count 211 K/mm3 (150-450); RBC Distribution Width CV 15.1 % (11.6-14.6); RBC Distribution Width SD 47.1 fl (35.1-43.9); Red Blood Count 4.35 M/mm3 (4.6-6.2); White Blood Count 7.8 K/mm3 (4.4-11.0)
[2024-07-07 11:01] LABS: International Normalized Ratio 1.2; Prothrombin Time (Protime)PT. 15.2 SECONDS (11.7-14.9)
[2024-07-07 11:04] LABS: Vancomycin, Trough Level < 0.8 ug/mL (5.0-15.0)
[2024-07-07 11:20] LABS: ALB/GLOB Ratio 0.7 RATIO (0.9-2.4); AST(SGOT) 18 U/L (15-37); Alanine Aminotransfer ALT/SGPT 24 U/L (16-61); Albumin, Serum 2.7 g/dL (3.2-5.0); Alkaline Phosphatase 115 U/L (45-117); Anion Gap 7 (5-15); BUN 11 mg/dL (7-18); BUN/Creat Ratio 10.6 RATIO (10-20); Bilirubin, Direct 0.08 mg/dL (0.00-0.30); Chloride 104 mmol/L (98-107); Cholesterol 129 mg/dL (200); Creatinine, Serum 1.04 mg/dL (0.70-1.30); EST Glomerular Filtration Rate 76 mL/min (>60); Est Glom Filt Rate - Afr Amer 91 mL/min (>60); Globulin 3.9 g/dL (2.2-4.2); Glucose 118 mg/dL (74-106); High Density Lipoprotein 38 mg/dL; Protein, Total 6.6 g/dL (6.4-8.2); Sodium Level 140 mmol/L (136-145); Triglycerides 256 mg/dL; Very Low Density Lipoprotein 51 mg/dL (5-40)
== END ==
LOC: OLS.ACW100 05:00
PROVIDERS: Visit Provider Family Medicine
DX: Z47.81 Encounter for orthopedic aftercare following surgical amputation (principal); M86.172 Other acute osteomyelitis, left ankle and foot; Z89.422 Acquired absence of other left toe(s); R27.9 Unspecified lack of coordination
CPT/HCPCS: 36415; 80053; 80061; 80202; 82248; 85025; 85610; 85652; 86140

== ENCOUNTER → 2024-07-11 05:00 | Outpatient (REF) | payer MEDICARE, MEDICAID, SELFPAY ==
[2024-07-11 08:37] LABS: Hematocrit 38.2 % (40-54); Hemoglobin 12.2 g/dL (13.0-16.5); Mean Corp Hgb Conc 31.9 g/dL (32-36); Mean Corpuscular Hgb 27.1 pg (27.0-32.0); Mean Corpuscular Volume 84.9 fL (80-94); Mean Platelet Vol. 10.8 fl (6.2-12.0); Platelet Count 201 K/mm3 (150-450); RBC Distribution Width CV 15.2 % (11.6-14.6); RBC Distribution Width SD 46.6 fl (35.1-43.9)
[2024-07-11 09:16] LABS: Anion Gap 8 (5-15); BUN 8 mg/dL (7-18); BUN/Creat Ratio 7.9 RATIO (10-20); Calcium,Total 9.2 mg/dL (8.5-10.1); Chloride 101 mmol/L (98-107); Creatinine, Serum 1.01 mg/dL (0.70-1.30); EST Glomerular Filtration Rate 78 mL/min (>60); Est Glom Filt Rate - Afr Amer 95 mL/min (>60); Glucose 109 mg/dL (74-106); Potassium 2.8 mmol/L (3.5-5.1); Sodium Level 141 mmol/L (136-145)
== END ==
LOC: OLS.ACW100 05:00
PROVIDERS: Visit Provider Family Medicine
DX: L03.116 Cellulitis of left lower limb (principal); M86.172 Other acute osteomyelitis, left ankle and foot; R26.81 Unsteadiness on feet; Z89.422 Acquired absence of other left toe(s)
CPT/HCPCS: 36415; 80048; 85027

== ENCOUNTER → 2024-07-15 04:00 | Outpatient (REF) | payer MEDICARE, MEDICAID, SELFPAY ==
[2024-07-15 10:11] LABS: Hematocrit 35.9 % (40-54); Hemoglobin 11.2 g/dL (13.0-16.5); Mean Corp Hgb Conc 31.2 g/dL (32-36); Mean Corpuscular Hgb 26.9 pg (27.0-32.0); Mean Corpuscular Volume 86.3 fL (80-94); Platelet Count 219 K/mm3 (150-450); RBC Distribution Width CV 15.1 % (11.6-14.6); RBC Distribution Width SD 47.7 fl (35.1-43.9); Red Blood Count 4.16 M/mm3 (4.6-6.2); White Blood Count 8.1 K/mm3 (4.4-11.0)
[2024-07-15 10:21] LABS: International Normalized Ratio 1.2; Prothrombin Time (Protime)PT. 14.9 SECONDS (11.7-14.9)
== END ==
LOC: OLS.ACW100 04:00
PROVIDERS: Referring Provider Family Medicine; Visit Provider Family Medicine
DX: M86.172 Other acute osteomyelitis, left ankle and foot (principal); Z89.422 Acquired absence of other left toe(s)
CPT/HCPCS: 85027; 85610

== ENCOUNTER → 2024-07-29 05:00 | Outpatient (REF) | payer MEDICARE, MEDICAID, SELFPAY ==
[2024-07-29 08:10] LABS: Absolute Lymphocyte Count 1.95 X10^3/uL (0.83-4.51); Absolute Neutrophil Count 5.6 X10^3/uL (2.0-7.7); Basophil# 0.07 X10^3/uL; Basophil% 0.8 % (0-1); Eosinophil# 0.18 X10^3/uL; Eosinophils% 2.1 % (0-5); Hematocrit 40.7 % (40-54); Hemoglobin 12.7 g/dL (13.0-16.5); Lymphocyte # 1.95 X10^3/ul (0.83-4.51); Lymphocyte % 22.4 % (19-41); Mean Corp Hgb Conc 31.2 g/dL (32-36); Mean Corpuscular Volume 86.4 fL (80-94); Mean Platelet Vol. 11.2 fl (6.2-12.0); Monocyte# 0.85 X10^3/uL; Monocyte% 9.8 % (0-10); NRBC Flagged by Analyzer 0 % (0-5); Neutrophil # 5.61 X10^3/uL (2.7-7.7); Neutrophil % 64.3 % (47-70); Platelet Count 207 K/mm3 (150-450); RBC Distribution Width CV 15.4 % (11.6-14.6); RBC Distribution Width SD 48.7 fl (35.1-43.9); Red Blood Count 4.71 M/mm3 (4.6-6.2); White Blood Count 8.7 K/mm3 (4.4-11.0)
[2024-07-29 08:25] LABS: AST(SGOT) 19 U/L (15-37); Alanine Aminotransfer ALT/SGPT 27 U/L (16-61); Albumin, Serum 2.8 g/dL (3.2-5.0); Alkaline Phosphatase 109 U/L (45-117); Creatinine, Serum 0.99 mg/dL (0.70-1.30); EST Glomerular Filtration Rate 80 mL/min (>60); Est Glom Filt Rate - Afr Amer 97 mL/min (>60); Globulin 3.6 g/dL (2.2-4.2); Protein, Total 6.4 g/dL (6.4-8.2)
== END ==
LOC: OLS.ACW100 05:00
PROVIDERS: Visit Provider Family Medicine
DX: Z47.81 Encounter for orthopedic aftercare following surgical amputation (principal); M86.172 Other acute osteomyelitis, left ankle and foot; R26.81 Unsteadiness on feet; Z89.422 Acquired absence of other left toe(s)
CPT/HCPCS: 36415; 80076; 82565; 85025

== ENCOUNTER → 2024-08-04 05:00 | Outpatient (REF) | payer MEDICARE, MEDICAID, SELFPAY ==
[2024-08-04 09:29] LABS: Erythrocyte Sedimentation Rate 19 mm/hr (0-20)
[2024-08-04 09:34] LABS: Basophil# 0.07 X10^3/uL; Basophil% 0.7 % (0-1); Eosinophil# 0.35 X10^3/uL; Eosinophils% 3.3 % (0-5); Hemoglobin 12.6 g/dL (13.0-16.5); Lymphocyte % 20.5 % (19-41); Mean Corp Hgb Conc 31.5 g/dL (32-36); Mean Corpuscular Hgb 27.5 pg (27.0-32.0); Mean Corpuscular Volume 87.3 fL (80-94); Mean Platelet Vol. 11.4 fl (6.2-12.0); Monocyte% 9.3 % (0-10); NRBC Flagged by Analyzer 0 % (0-5); Neutrophil # 7.02 X10^3/uL (2.7-7.7); Neutrophil % 65.5 % (47-70); Platelet Count 177 K/mm3 (150-450); RBC Distribution Width CV 15.3 % (11.6-14.6); RBC Distribution Width SD 48.8 fl (35.1-43.9); Red Blood Count 4.58 M/mm3 (4.6-6.2); White Blood Count 10.7 K/mm3 (4.4-11.0)
[2024-08-04 17:41] LABS: ALB/GLOB Ratio 0.9 RATIO (0.9-2.4); AST(SGOT) 18 U/L (15-37); Alanine Aminotransfer ALT/SGPT 27 U/L (16-61); Albumin, Serum 2.8 g/dL (3.2-5.0); Alkaline Phosphatase 111 U/L (45-117); Anion Gap 7 (5-15); BUN 13 mg/dL (7-18); BUN/Creat Ratio 14.5 RATIO (10-20); Bilirubin, Direct 0.09 mg/dL (0.00-0.30); CRP 6.88 mg/L (0.0-3.0); Calcium,Total 8.6 mg/dL (8.5-10.1); Chloride 105 mmol/L (98-107); Cholesterol 117 mg/dL (200); EST Glomerular Filtration Rate 90 mL/min (>60); Est Glom Filt Rate - Afr Amer 108 mL/min (>60); Globulin 3.1 g/dL (2.2-4.2); Glucose 99 mg/dL (74-106); High Density Lipoprotein 54 mg/dL; Potassium 4.3 mmol/L (3.5-5.1); Protein, Total 5.9 g/dL (6.4-8.2); Sodium Level 141 mmol/L (136-145); Triglycerides 170 mg/dL; Very Low Density Lipoprotein 34 mg/dL (5-40)
== END ==
LOC: OLS.ACW100 05:00
PROVIDERS: Visit Provider Family Medicine
DX: M86.172 Other acute osteomyelitis, left ankle and foot (principal); R26.81 Unsteadiness on feet; Z89.422 Acquired absence of other left toe(s)
CPT/HCPCS: 36415; 80053; 80061; 82248; 85025; 85652; 86140

== ENCOUNTER → 2024-09-23 | Outpatient (REF) | payer MEDICARE, MEDICAID, SELFPAY ==
[2024-09-23 08:42] LABS: Hematocrit 42.4 % (40-54); Hemoglobin 13.1 g/dL (13.0-16.5); Mean Corp Hgb Conc 30.9 g/dL (32-36); Mean Corpuscular Hgb 25.9 pg (27.0-32.0); Mean Platelet Vol. 10.5 fl (6.2-12.0); Platelet Count 250 K/mm3 (150-450); RBC Distribution Width CV 15.5 % (11.6-14.6); RBC Distribution Width SD 47.3 fl (35.1-43.9); Red Blood Count 5.05 M/mm3 (4.6-6.2); White Blood Count 8.6 K/mm3 (4.4-11.0)
[2024-09-23 09:37] LABS: ALB/GLOB Ratio 0.9 RATIO (0.9-2.4); AST(SGOT) 23 U/L (<=37); Alanine Aminotransfer ALT/SGPT 13 U/L (<=46); Albumin, Serum 3.2 g/dL (3.4-4.8); Alkaline Phosphatase 115 U/L (40-129); Anion Gap 9 (5-15); BUN 10 mg/dL (4-19); BUN/Creat Ratio 9.5 RATIO (10-20); Bilirubin, Direct 0.12 mg/dL (0.00-0.30); Calcium,Total 8.8 mg/dL (7.6-11.0); Carbon Dioxide 27.2 mmol/L (21.0-32.0); Chloride 101 mmol/L (98-108); Creatinine, Serum 1.07 mg/dL (0.70-1.20); EST Glomerular Filtration Rate 76 (>60); Globulin 3.5 g/dL (2.2-4.2); Glucose 143 mg/dL (70-99); Potassium 4.1 mmol/L (3.3-5.1); Protein, Total 6.6 g/dL (5.9-8.4); Sodium Level 137 mmol/L (133-145); Total Bilirubin 0.27 mg/dL (0.00-1.30)
== END ==
LOC: OLS.ACW100 04:00
PROVIDERS: Referring Provider Family Medicine; Visit Provider Family Medicine
DX: D75.829 Heparin-induced thrombocytopenia, unspecified (principal); I70.201 Unspecified atherosclerosis of native arteries of extremities, right leg; L95.9 Vasculitis limited to the skin, unspecified; Z48.89 Encounter for other specified surgical aftercare
CPT/HCPCS: 36415; 80053; 82248; 85027

== ENCOUNTER → 2024-10-02 | Outpatient (REF) | payer MEDICARE, MEDICAID, SELFPAY ==
[2024-10-02 09:23] LABS: Absolute Lymphocyte Count 1.92 X10^3/uL (0.83-4.51); Absolute Neutrophil Count 4.2 X10^3/uL (2.0-7.7); Basophil# 0.04 X10^3/uL; Basophil% 0.6 % (0-1); Eosinophils% 2.8 % (0-5); Hematocrit 43.9 % (40-54); Hemoglobin 14.1 g/dL (13.0-16.5); Lymphocyte # 1.92 X10^3/ul (0.83-4.51); Lymphocyte % 26.9 % (19-41); Mean Corp Hgb Conc 32.1 g/dL (32-36); Mean Corpuscular Hgb 26.3 pg (27.0-32.0); Mean Corpuscular Volume 81.8 fL (80-94); Mean Platelet Vol. 10.5 fl (6.2-12.0); Monocyte# 0.74 X10^3/uL; Monocyte% 10.4 % (0-10); NRBC Flagged by Analyzer 0 % (0-5); Neutrophil % 58.9 % (47-70); Platelet Count 194 K/mm3 (150-450); RBC Distribution Width CV 15.8 % (11.6-14.6); RBC Distribution Width SD 46.6 fl (35.1-43.9); Red Blood Count 5.37 M/mm3 (4.6-6.2); White Blood Count 7.1 K/mm3 (4.4-11.0)
[2024-10-02 09:35] LABS: AST(SGOT) 25 U/L (<=37); Alanine Aminotransfer ALT/SGPT 18 U/L (<=46); Albumin, Serum 3.5 g/dL (3.4-4.8); Alkaline Phosphatase 123 U/L (40-129); Anion Gap 10 (5-15); BUN 7 mg/dL (4-19); BUN/Creat Ratio 6.6 RATIO (10-20); Carbon Dioxide 25.6 mmol/L (21.0-32.0); Chloride 101 mmol/L (98-108); Creatinine, Serum 1.08 mg/dL (0.70-1.20); EST Glomerular Filtration Rate 75 (>60); Globulin 3.5 g/dL (2.2-4.2); Glucose 83 mg/dL (70-99); Potassium 3.6 mmol/L (3.3-5.1); Sodium Level 137 mmol/L (133-145); Total Bilirubin 0.46 mg/dL (0.00-1.30)
== END ==
LOC: OLS.ACW100 06:50
PROVIDERS: Visit Provider Family Medicine
DX: D75.829 Heparin-induced thrombocytopenia, unspecified (principal); I70.201 Unspecified atherosclerosis of native arteries of extremities, right leg; L95.9 Vasculitis limited to the skin, unspecified
CPT/HCPCS: 36415; 80053; 85025

== ENCOUNTER → 2024-10-06 | Outpatient (REF) | payer MEDICARE, MEDICAID, SELFPAY ==
[2024-10-06 09:40] LABS: Absolute Neutrophil Count 3.6 X10^3/uL (2.0-7.7); Basophil# 0.05 X10^3/uL; Basophil% 0.8 % (0-1); Eosinophil# 0.22 X10^3/uL; Eosinophils% 3.7 % (0-5); Hematocrit 42.7 % (40-54); Hemoglobin 13.7 g/dL (13.0-16.5); Mean Corp Hgb Conc 32.1 g/dL (32-36); Mean Corpuscular Hgb 26.3 pg (27.0-32.0); Mean Platelet Vol. 10.8 fl (6.2-12.0); Monocyte# 0.65 X10^3/uL; Monocyte% 10.8 % (0-10); NRBC Flagged by Analyzer 0 % (0-5); Neutrophil # 3.56 X10^3/uL (2.7-7.7); Neutrophil % 59.2 % (47-70); Platelet Count 190 K/mm3 (150-450); RBC Distribution Width CV 16.1 % (11.6-14.6); RBC Distribution Width SD 48.1 fl (35.1-43.9); Red Blood Count 5.21 M/mm3 (4.6-6.2)
[2024-10-06 10:07] LABS: Alanine Aminotransfer ALT/SGPT 22 U/L (<=46); Creatinine, Serum 1.12 mg/dL (0.70-1.20); EST Glomerular Filtration Rate 72 (>60)
== END ==
LOC: OLS.ACW100 04:00
PROVIDERS: Referring Provider Family Medicine; Visit Provider Family Medicine
DX: D75.829 Heparin-induced thrombocytopenia, unspecified (principal); I70.201 Unspecified atherosclerosis of native arteries of extremities, right leg; L95.9 Vasculitis limited to the skin, unspecified
CPT/HCPCS: 36415; 82565; 84460; 85025

== ENCOUNTER → 2024-10-13 | Outpatient (REF) | payer MEDICARE, MEDICAID, SELFPAY ==
[2024-10-13 09:24] LABS: Absolute Lymphocyte Count 1.72 X10^3/uL (0.83-4.51); Absolute Neutrophil Count 5.2 X10^3/uL (2.0-7.7); Basophil# 0.06 X10^3/uL; Basophil% 0.8 % (0-1); Eosinophil# 0.16 X10^3/uL; Hematocrit 41.2 % (40-54); Hemoglobin 12.8 g/dL (13.0-16.5); Lymphocyte # 1.72 X10^3/ul (0.83-4.51); Lymphocyte % 21.8 % (19-41); Mean Corp Hgb Conc 31.1 g/dL (32-36); Mean Corpuscular Hgb 26.6 pg (27.0-32.0); Mean Corpuscular Volume 85.5 fL (80-94); Mean Platelet Vol. 10.7 fl (6.2-12.0); Monocyte# 0.76 X10^3/uL; Monocyte% 9.6 % (0-10); NRBC Flagged by Analyzer 0 % (0-5); Neutrophil # 5.15 X10^3/uL (2.7-7.7); Neutrophil % 65.4 % (47-70); Platelet Count 185 K/mm3 (150-450); RBC Distribution Width CV 16.5 % (11.6-14.6); RBC Distribution Width SD 50.7 fl (35.1-43.9); Red Blood Count 4.82 M/mm3 (4.6-6.2); White Blood Count 7.9 K/mm3 (4.4-11.0)
[2024-10-13 09:56] LABS: Alanine Aminotransfer ALT/SGPT 11 U/L (<=46); Creatinine, Serum 1.08 mg/dL (0.70-1.20); EST Glomerular Filtration Rate 75 (>60)
== END ==
LOC: OLS.ACW100 05:00
PROVIDERS: Visit Provider Family Medicine
DX: D75.829 Heparin-induced thrombocytopenia, unspecified (principal); I70.201 Unspecified atherosclerosis of native arteries of extremities, right leg; L95.9 Vasculitis limited to the skin, unspecified
CPT/HCPCS: 36415; 82565; 84460; 85025

== ENCOUNTER → 2024-10-20 | Outpatient (REF) | payer MEDICARE, MEDICAID, SELFPAY ==
[2024-10-20 09:58] LABS: Absolute Lymphocyte Count 1.71 X10^3/uL (0.83-4.51); Absolute Neutrophil Count 6.5 X10^3/uL (2.0-7.7); Basophil# 0.06 X10^3/uL; Basophil% 0.7 % (0-1); Eosinophil# 0.14 X10^3/uL; Eosinophils% 1.5 % (0-5); Hematocrit 42.4 % (40-54); Hemoglobin 13.6 g/dL (13.0-16.5); Lymphocyte # 1.71 X10^3/ul (0.83-4.51); Lymphocyte % 18.6 % (19-41); Mean Corp Hgb Conc 32.1 g/dL (32-36); Mean Corpuscular Hgb 26.6 pg (27.0-32.0); Mean Corpuscular Volume 82.8 fL (80-94); Mean Platelet Vol. 10.3 fl (6.2-12.0); Monocyte# 0.73 X10^3/uL; Monocyte% 7.9 % (0-10); NRBC Flagged by Analyzer 0 % (0-5); Neutrophil # 6.53 X10^3/uL (2.7-7.7); Neutrophil % 70.9 % (47-70); Platelet Count 205 K/mm3 (150-450); RBC Distribution Width CV 16.5 % (11.6-14.6); Red Blood Count 5.12 M/mm3 (4.6-6.2); White Blood Count 9.2 K/mm3 (4.4-11.0)
[2024-10-20 10:08] LABS: Alanine Aminotransfer ALT/SGPT 8 U/L (<=46); Creatinine, Serum 0.88 mg/dL (0.70-1.20); EST Glomerular Filtration Rate 94 (>60)
== END ==
LOC: OLS.ACW100 04:00
PROVIDERS: Referring Provider Family Medicine; Visit Provider Family Medicine
DX: D75.829 Heparin-induced thrombocytopenia, unspecified (principal); I70.201 Unspecified atherosclerosis of native arteries of extremities, right leg; L95.9 Vasculitis limited to the skin, unspecified
CPT/HCPCS: 36415; 82565; 84460; 85025

== ENCOUNTER → 2024-10-27 | Outpatient (REF) | payer MEDICARE, MEDICAID, SELFPAY ==
[2024-10-27 10:01] LABS: Absolute Lymphocyte Count 2.35 X10^3/uL (0.83-4.51); Absolute Neutrophil Count 4.3 X10^3/uL (2.0-7.7); Basophil# 0.06 X10^3/uL; Basophil% 0.8 % (0-1); Eosinophil# 0.12 X10^3/uL; Eosinophils% 1.6 % (0-5); Hematocrit 46.1 % (40-54); Hemoglobin 14.3 g/dL (13.0-16.5); Lymphocyte # 2.35 X10^3/ul (0.83-4.51); Lymphocyte % 30.7 % (19-41); Mean Corpuscular Volume 83.8 fL (80-94); Mean Platelet Vol. 10.7 fl (6.2-12.0); Monocyte# 0.77 X10^3/uL; Monocyte% 10.1 % (0-10); NRBC Flagged by Analyzer 0 % (0-5); Neutrophil # 4.31 X10^3/uL (2.7-7.7); Neutrophil % 56.1 % (47-70); Platelet Count 235 K/mm3 (150-450); RBC Distribution Width SD 50.9 fl (35.1-43.9); White Blood Count 7.7 K/mm3 (4.4-11.0)
[2024-10-27 10:15] LABS: Alanine Aminotransfer ALT/SGPT 17 U/L (<=46); Creatinine, Serum 0.83 mg/dL (0.70-1.20); EST Glomerular Filtration Rate 95 (>60)
== END ==
LOC: OLS.ACW100 05:00
PROVIDERS: Visit Provider Family Medicine
DX: D75.829 Heparin-induced thrombocytopenia, unspecified (principal); I70.201 Unspecified atherosclerosis of native arteries of extremities, right leg; L95.9 Vasculitis limited to the skin, unspecified
CPT/HCPCS: 36415; 82565; 84460; 85025

== ENCOUNTER → 2025-01-05 05:00 | Outpatient (REF) | payer MEDICARE, MEDICAID, SELFPAY ==
[2025-01-05 08:50] LABS: Hematocrit 42.5 % (40-54); Hemoglobin 13.3 g/dL (13.0-16.5); Immature Granulocytes Count 0.100 X10^3/uL (0.0-0.0); Mean Corp Hgb Conc 31.3 g/dL (32-36); Mean Corpuscular Volume 83.7 fL (80-94); Mean Platelet Vol. 10.9 fl (6.2-12.0); NRBC Flagged by Analyzer 0 % (0-5); Platelet Count 225 K/mm3 (150-450); RBC Distribution Width CV 18.3 % (11.6-14.6); RBC Distribution Width SD 55.1 fl (35.1-43.9); Red Blood Count 5.08 M/mm3 (4.6-6.2); White Blood Count 7.7 K/mm3 (4.4-11.0)
[2025-01-05 09:17] LABS: Alanine Aminotransfer ALT/SGPT 26 U/L (<=46); Anion Gap 11 (5-15); BUN 8 mg/dL (4-19); BUN/Creat Ratio 9.3 RATIO (10-20); CRP 15.10 mg/L (0.0-3.0); Calcium,Total 9.1 mg/dL (7.6-11.0); Carbon Dioxide 26.6 mmol/L (21.0-32.0); Chloride 105 mmol/L (98-108); Glucose 113 mg/dL (70-99); Potassium 4.3 mmol/L (3.3-5.1)
== END ==
LOC: OLS.ACW100 05:00
PROVIDERS: Visit Provider Family Medicine
DX: D75.829 Heparin-induced thrombocytopenia, unspecified (principal); Z48.89 Encounter for other specified surgical aftercare; I70.201 Unspecified atherosclerosis of native arteries of extremities, right leg; L95.9 Vasculitis limited to the skin, unspecified; M86.172 Other acute osteomyelitis, left ankle and foot
CPT/HCPCS: 36415; 80048; 84460; 85025; 86140

== ENCOUNTER → 2025-01-28 06:05 | Outpatient (REF) | payer MEDICARE, MEDICAID, SELFPAY ==
[2025-01-28 08:12] LABS: Hematocrit 39.5 % (40-54); Hemoglobin 12.4 g/dL (13.0-16.5); Mean Corp Hgb Conc 31.4 g/dL (32-36); Mean Corpuscular Volume 84.6 fL (80-94); Mean Platelet Vol. 10.5 fl (6.2-12.0); Platelet Count 225 K/mm3 (150-450); RBC Distribution Width CV 18.0 % (11.6-14.6); RBC Distribution Width SD 55.1 fl (35.1-43.9); Red Blood Count 4.67 M/mm3 (4.6-6.2); White Blood Count 11.4 K/mm3 (4.4-11.0)
[2025-01-28 08:59] LABS: Cholesterol 85 mg/dL (<=200); Low Density Lipoprotein Calc. 22 mg/dL; Triglycerides 107 mg/dL; Very Low Density Lipoprotein 21 mg/dL (5-40); cholesterol:hdl ratio screen 2.04
[2025-01-28 09:12] LABS: Anion Gap 12 (5-15); BUN 9 mg/dL (4-19); BUN/Creat Ratio 10.0 RATIO (10-20); Calcium,Total 9.0 mg/dL (7.6-11.0); Carbon Dioxide 25.4 mmol/L (21.0-32.0); Chloride 103 mmol/L (98-108); Glucose 118 mg/dL (70-99); Potassium 4.0 mmol/L (3.3-5.1)
== END ==
LOC: OLS.ACW100 06:05
PROVIDERS: Visit Provider Family Medicine
DX: M62.81 Muscle weakness (generalized) (principal); M86.172 Other acute osteomyelitis, left ankle and foot; I70.201 Unspecified atherosclerosis of native arteries of extremities, right leg
CPT/HCPCS: 36415; 80048; 80061; 83036; 85027

== ENCOUNTER → 2025-02-02 04:00 | Outpatient (REF) | payer MEDICARE, MEDICAID, SELFPAY ==
--- OUTSIDE RECORDS SUMMARY | 2025-02-02 03:51 | XMS RPT_ITS | CCD ---
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 [employer] Name Role Phone [place], [facility] Primary Care Provider [phone] DARI ESPARZA Attending Unavailable MARSHA LUCAS Referring Unavailable MARSHA LUCAS Referring Unavailable MARSHA LUCAS Referring Unavailable LONNY WILDER Primary Care Unavailable COLLEEN JAMES Admitting Unavailable TORI GRIGGS Attending Unavailable JEANNE WHITEHEAD Consulting Unavailable JEANNE WHITEHEAD Attending Unavailable PROVIDER, UNKNOWN Attending Unavailable CHARLEY, JEANNE F Attending Unavailable PROVIDER, UNKNOWN Attending Unavailable CHARLEY, JEANNE F Attending Unavailable CHARLEY JEANNE F [facility]ending [facility] [place] Primary [facility] Provider UnavailMelo Jeffries Attending Provider UnavailMelo Jeffries [place]erring [place] Unavail[place]o Jeffries [place]ending [place] [facility] [place] UnavailMelo Jeffries Attending Provider UnavailMelo Jeffries Referring [place] UnavailMelo Jeffries Attending Provider Unavailabl SARAH Banerjee Admitting Unavailable TEDDY CONWAY Attending Unavailable ANY GRANT Consulting Unavaila ble MARSHA LUCAS Admitting Unavailable MARSHA LUCAS Attending Unavailable DAVID LUCASANDRA M Referring [facility]available [facility] [place] Primary Care Unavailable Melo Holm Attending Unavailable Melo Holm Referring [facility]available [facility] [place] [facility] Unavailable Melo Holm Attending Unavailable [place] Salas NP [place]ending [place] [facility] [place] [facility] F [facility] [place] [facility] [place] [facility] Un[facility] Giuliano Cisneros [facility] [place] [facility] Unavailable Burke RHOADES Efoly Attending Unavailabl [facility] [place] [facility] Un[facility] Melo Holm [facility] [place] [facility] Un[facility] Melo Holm [facility] Un[facility] Melo Holm Attending Unavailable Melo Holm [facility] Unavailable Melo Holm Attending Unavailable Melo Holm Referring [facility] [place] [facility] Un[facility] Melo Holm [facility] [place] [facility] Un[facility] Melo Holm [facility] [place] [facility] Un[facility] Melo Holm Referring Unavailable Melo Holm Attending Unavailable Nicolee Jair RHOADESongasael Attending Unavailabl e [facility] [place] [facility] Unavailable Olesangitae JF Efterenceongasael Attending [facility] [place] [facility] [place] [facility] Luis F Johnson [facility] Luis F Turk Referring Unavailable Burke Efewongbe [facility]ending [facility] [place] [facility] Un[facility] Melo Holm Att[facility] Un[facility] Melo Holm [facility] [place] [facility] Un[facility] Melo Holm Att[facility] [place] [facility] Un[facility] Melo Holm Referring Unavailable Melo Holm [facility] [place] [facility] Unavailable Burke Efewongbe Attending Unavailable Oleghe Efewongbe [facility]ending [facility] [place] [facility] Unavailable Corneliaton EMAIL MARKETING PROCESSOR, Paris Attending Unavailable Josue EMAIL MARKETING PROCESSOR, [place] Attending [facility] Un[facility] Oleghe JF Efewongbe Attending Unavailabl e [facility] [place] [facility] Unavailable Olesangitae JF Efewongbe Attending [facility]ailabl [facility] Un[facility] Melo Holm Attending [facility] Un[facility] Melo Holm Att[facility] Un[facility] Melo Holm [facility] Unavailable Melo Holm Referring Unavailable Melo Holm Attending Unavailable Oleghe JF Efterenceongasael Attending Unavailabl e [facility] Oleghe JF Efewongbe [facility] Un[facility] Melo Holm Attending [place] [facility] [place] [facility] Unavailable Melo Holm Attending Unavailable Luis F Johnson Attending [facility], [facility] Care Un[facility] [place] [facility] Unavailable Melo Holm Attending [facility]available [facility] [place] [facility] Unavailable Melo Holm Attending Unavailable [facility] [place] [facility] Unavailable Melo Holm Referring Unavailable Melo Holm Attending [facility]available [facility] [place] [facility] Unavailable Melo Holm Attending Unavailable Luis F Johnson [facility] [place] [facility] [place] [facility] Un[place] Melo Holm Attending [facility] [facility] [place] [facility] Un[facility] Melo Holm Attending [facility] Care Unavailable Melo Holm Attending Unavailable Melo Holm Attending Unavailable [facility] [place] [facility] [place] [facility] Unavailable Melo Holm Attending Unavailable [facility] [place] [facility] Unavailable Melo Holm Attending Unavailable Luis F Johnson Attending [facility], [facility] Unavailable Allergies Allergy Classification Reported Allergen(s) Allergy Type Date of Onset Reaction(s) Facility (20 sources) heparin; Translations: [HEPARIN] Drug Allergy 3 Other: See Comments [facility] Comment on above: thrombocytopenia (7 sources) Nortriptyline Drug Allergy 3 PT UNSURE OF REACTION [facility] (7 sources) rivaroxaban Drug Allergy 3 PT UNSURE OF REACTION [facility] (13 sources) Amitriptyline; Translations: [AMITRIPTYLINE] Drug Allergy 5 Itching [facility] Work Phone: (1 source) heparin Drug Allergy 4 [facility] Repository (1 source) Nortriptyline Drug Allergy 4 [facility] (1 source) rivaroxaban Drug Allergy 4 [facility] Medications Current Medications Medication Drug Class(es) Dates Sig (Normalized) Sig (Original) Albuterol (12 sources) beta2-Adrenergic Agonist Start: 10-26-2014 Albuterol Sulfate (Ventolin Hfa) 1 INHALER inhaler Active 2 NMA INHALATION EVERY 4 HOURS NEEDED as needed for SOB, wheezing October 26, 2014 12:00am Start: 10-26-2014 take 1 puff(s) by in halation every four hours as needed Albuterol Sulfate (Ventolin Hfa) 1 INHALER inhaler Active 2 PUFF INHALATION EVERY 4 HOURS NEEDED October 26, 2014 12:00am take 2 puff(s) by in halation every four hours as needed for wheezing albuterol sulfate (PROAIR DIGIHALER) 90 mcg/actuation aebs Inhale 2 Puffs as instructed every 4 hours as needed for wheezing/shortness of breath. Active apixaban 5 mg oral tablet (8 sources) Factor Xa Inhibitor Start: 12-20-2021 take 1 tablet by mouth twice daily Apixaban (Eliquis Dvt-Pe Treat 30d Start) 5 mg (74 tabs) tablets,dose pack Active 5 mg PO TWICE A DAY December 20, 2021 12:00am aspirin 81 mg delayed release oral tablet (20 sources) Platelet Aggregation Inhibitor, Nonsteroidal Anti-inflammatory Drug Start: 03-25-2024 take 1 tablet by mouth once daily Aspirin 81 mg tablet,delayed release (DR/EC) Active 81 mg PO DAILY May 02, 2024 1:00am Start: 10-26-2014 take 1 tablet by ran th once daily Aspirin 81 MG tablet,chewable Active 81 mg PO DAILY@0800 90 October 26, 2014 12:00am atorvastatin 80 mg oral tablet (20 sources) HMG-CoA Reductase Inhibitor Start: 02-19-2024 take 1 tablet by mouth once daily Atorvastatin 80 mg tablet Active 80 mg PO DAILY May 02, 2024 1:00am Start: 10-26-2014 take 1 tablet by ran th at bedtime Atorvastatin 40 MG tablet Active 40 mg PO AT BEDTIME October 26, 2014 12:00am Gkezpamrql-Aebtbmpn-Iructimr ol [Budesonide 160 Mcg-Glycopyr 9 Mcg-Formot 4.8 Mcg/Actuation Hfa Inhaler] (20 sources) Corticosteroid, beta2-Adrenergic Agonist Start: 05-02-2024 Losgcealsn-Vzbldpxo-Eugbijxg ol [Budesonide 160 Mcg-Glycopyr 9 Mcg-Formot 4.8 Mcg/Actuation Hfa Inhaler] (Budesonide 160 Mcg-Glycopyr 9 Mcg-Formot 4.8 ) 160-9-4.8 mcg/actuation HFA aerosol inhaler Active NMA INHALATION May 02, 2024 1:00am Start: 02-19-2024 take 2 puff(s) by inhalation twice daily kamfclqiqj-ozplzoiv-nbyczxkctz (BREZTRI) 160-9-4.8 mcg/actuation HFA aerosol inhaler Inhale 2 Puffs as instructed two times a day. 02/19/2024 Active 24 hr buPROPion hydrochloride 150 mg extended release oral tablet (14 sources) Aminoketone Start: 05-19-2024 take 1 tablet by mouth once daily in the morning buPROPion XL (WELLBUTRIN XL) 150 mg 24 hr tablet Take 300 mg by mouth every morning. 05/19/2024 Active busPIRone hydrochloride 30 mg oral tablet (10 sources) Start: 05-02-2024 take 1 tablet by mouth twice daily Buspirone 30 mg tablet Active 30 mg PO TWICE A DAY May 02, 2024 1:00am take 1 tablet by mouth twice ernie ly busPIRone (BUSPAR) 7.5 mg tablet Take 7.5 mg by mouth two times a day. Active carvedilol 3.125 mg oral tablet (20 sources) alpha-Adrenergic Gustavo, beta-Adrenergic Gustavo Start: 10-26-2014 take 1 tablet by mouth twice daily Carvedilol 3.125 MG tablet Active 3.125 mg PO TWICE A DAY October 26, 2014 12:00am take 1 tablet by ran th twice daily at mealtime carvedilol (COREG) 25 mg tablet Take 25 mg by mouth twice daily with meals. Active cephalexin 500 mg oral capsule (6 sources) Cephalosporin Antibacterial Start: 05-02-2024 take 1 capsule by mouth every eight hours Cephalexin 500 mg capsule Active 500 mg PO Q8H 21 7 May 02, 2024 1:00am clopidogrel 75 mg oral tablet (4 sources) P2Y12 Platelet Inhibitor take 1 tablet by mouth once daily clopidogrel (PLAVIX) 75 mg tablet Take 75 mg by mouth once daily. Active diclofenac sodium 0.01 mg/mg topical gel (6 sources) Nonsteroidal Anti-inflammatory Drug Start: 05-02-2024 Diclofenac Sodium 1 % gel Active 1 NMA TOPICAL 4 TIMES DAILY May 02, 2024 1:00am docusate sodium 50 mg / sennosides, long term 8.6 mg oral tablet (6 sources) Start: 05-02-2024 Sennosides-Docusate Sodium (Sennosides 8.6 Mg-Docusate Sodium 50 Mg Tablet) 8.6-50 mg tablet Active 1 {tbl} PO DAILY May 02, 2024 1:00am DULoxetine 30 mg delayed release oral capsule (6 sources) Serotonin and Norepinephrine Reuptake Inhibitor Start: 05-02-2024 take 1 capsule by mouth once daily Duloxetine 30 mg capsule,delayed release(DR/EC) Active 30 mg PO DAILY May 02, 2024 1:00am ergocalciferol 1.25 mg oral capsule (6 sources) Provitamin D2 Compound Start: 05-02-2024 Ergocalciferol (Vitamin D2) [Ergocalciferol (Vitamin D2) 1,250 Mcg (50,000 Unit) Capsule] (Ergocalciferol (Vitamin D2) 1,250 Mcg (50,000 Unit) ) 1,250 mcg (50,000 unit) capsule Active PO May 02, 2024 1:00am ezetimibe 10 mg oral tablet (4 sources) Dietary Cholesterol Absorption Inhibitor take 1 tablet by mouth once daily ezetimibe (ZETIA) 10 mg tablet Take 10 mg by mouth once daily. Active fluconazole 200 mg oral tablet (2 sources) Azole Antifungal Start: 06-07-2024 End: 07-09-2024 take 2 tablets by mouth once daily fluconazole (DIFLUCAN) 200 mg tablet Take 2 tablets by mouth once daily. 06/07/2024 07/09/2024 Active gemfibrozil 600 mg oral tablet (6 sources) Peroxisome Proliferator Receptor alpha Agonist Start: 05-02-2024 take 1 tablet by mouth twice daily Gemfibrozil 600 mg tablet Active 600 mg PO TWICE A DAY May 02, 2024 1:00am insulin glargine-yfgn (SEMGLEE) 100 unit/mL (3 mL) insulin pen (14 sources) Start: 02-19-2024 insulin glargine-yfgn (SEMGLEE) 100 unit/mL (3 mL) insulin pen Inject 25 Units subcutaneously two times a day. 02/19/2024 Active Start: 02-19-2024 insulin glargi ne-yfgn (SEMGLEE) 100 unit/mL (3 mL) insulin pen Inject 25 Units subcutaneously two times a day. 02/19/2024 Suspended Insulin Glargine-Yfgn 100 unit/mL (3 mL) insulin pen (6 sources) Start: 05-02-2024 Insulin Glargine-Yfgn 100 unit/mL (3 mL) insulin pen Active U SC May 02, 2024 1:00am 24 hr isosorbide mononitrate 30 mg extended release oral tablet (20 sources) Nitrate Vasodilator Start: 02-19-2024 take 1 tablet by mouth once daily, then take 1 tablet by mouth every twenty-four hours Isosorbide Mononitrate 30 mg tablet extended release 24 hr Active 30 mg PO DAILY May 02, 2024 1:00am melatonin 5 mg oral tablet (6 sources) Start: 05-02-2024 Melatonin 5 mg tablet Active PO May 02, 2024 1:00am [place]-3 Fatty Acids-Vitamin E (FISH OIL) 1,000 mg cap (14 sources) [place]-3 Fatty Acids-Vitamin E (FISH OIL) 1,000 mg cap Take 1 capsule by mouth. Active [place]-3 Fatty Ac ids-Vitamin E (FISH OIL) 1,000 mg cap Take 1 capsule by mouth. Suspended ondansetron 4 mg oral tablet (9 sources) Serotonin-3 Receptor Antagonist take 1 tablet by mouth every eight hours as needed ondansetron (ZOFRAN) 4 mg tablet Take 4 mg by mouth every 8 hours as needed for nausea/vomiting. Active oxyCODONE hydrochloride 5 mg oral tablet (15 sources) Opioid Agonist Start: 05-02-20 Oxycodone 5 mg tablet Active PO May 02, 2024 1:00am take 1 tablet by ran th every six hours as needed oxyCODONE IR (ROXICODONE) 30 mg immediat e release tablet Take 30 mg by mouth every 6 hours as needed for pain. Active pantoprazole 40 mg delayed release oral tablet (6 sources) Proton Pump Inhibitor take 1 tablet by mouth twice daily pantoprazole DR (PROTONIX) 40 mg tablet Take 40 mg by mouth two times a day. Active potassium chloride 10 meq extended release oral capsule (6 sources) potassium chlori de SR (MICRO-K) 10 mEq CR capsule Take 10 mEq by mouth once daily. Active pregabalin 200 mg oral capsule (20 sources) Start: 12-19-19 End: 05-16-20 take 1 capsule by mouth three times daily Pregabalin (Lyrica) 200 mg capsule Active 200 mg PO THREE TIMES A DAY May 16, 2024 3:14pm rivaroxaban 2.5 mg oral tablet (14 sources) Factor Xa Inhibitor Start: 05-20-20 take 1 tablet by mouth twice daily rivaroxaban (XARELTO) 2.5 mg tablet Take 2.5 mg by mouth two times a day. 05/20/2024 Active semaglutide (OZEMPIC) 2 mg/dose (8 mg/3 mL) pen injector (14 sources) Start: 01-24-20 inject 2 mg by subcutaneous injection every week semaglutide (OZEMPIC) 2 mg/dose (8 mg/3 mL) pen injector Inject 2 mg subcutaneously one time a week. 01/24/2024 Active Start: 01-24-2024 inject 2 mg by subcu taneous injection every week semaglutide (OZEMPIC) 2 mg/dose (8 mg/3 mL) pen injector Inject 2 mg subcutaneously one time a week. 01/24/2024 Suspended Semaglutide (Semaglutide 2 Mg/Dose (8 Mg/3 Ml) Subcutaneous Pen Injector) 2 mg/dose (8 mg/3 mL) pen injector (6 sources) Start: 05-02-2024 Semaglutide (Semaglutide 2 Mg/Dose (8 Mg/3 Ml) Subcutaneous Pen Injector) 2 mg/dose (8 mg/3 mL) pen injector Active mg SC May 02, 2024 1:00am sodium chlor-hypochlorous acid (VASHE) 0.033 % irsl (6 sources) sodium chlor-hypochlorous acid (VASHE) 0.033 % irsl Irrigate as instructed as directed. With each wound care dressing change Active spironolactone 25 mg oral tablet (20 sources) Aldosterone Antagonist Start: 05-02-2024 take 1 tablet by mouth twice daily Spironolactone 25 mg tablet Active 25 mg PO TWICE A DAY May 02, 2024 1:00am Start: 02-19-2024 take 0.5 tablet by m outh once daily spironolactone (ALDACTONE) 25 mg tablet Take 0.5 tablets by mouth once daily. 02/19/2024 Active torsemide 20 mg oral tablet (20 sources) Loop Diuretic Start: 02-19-2024 take 1 tablet by mouth once daily Torsemide 20 mg tablet Active 20 mg PO DAILY May 02, 2024 1:00am traZODone hydrochloride 50 mg oral tablet (4 sources) Serotonin Reuptake Inhibitor take 1 tablet by mouth once daily at bedtime traZODone (DESYREL) 50 mg tablet Take 50 mg by mouth daily at bedtime. Active 100 ml vancomycin 5 mg/ml injection (9 sources) Glycopeptide Antibacterial take 500 mg intravenously every twelve hours vancomycin 500 mg/100 mL IVPB Inject 500 mg intravenously every 12 hours. Per family - not on Aug but should go through 06/27/2024 Active vitamin D3-vitamin K2, MK4, 1,000-100 unit-mcg tab (14 sources) vitamin D3-vitamin K2, MK4, 1,000-100 unit-mcg tab Take by mouth. Active vitamin D3-vitam in K2, MK4, 1,000-100 unit-mcg tab Take by mouth. Suspended Completed/Discontinued Medications Medication Drug Class(es) Dates Sig (Normalized) Sig (Original) acetaminophen 325 mg / HYDROcodone bitartrate 5 mg oral tablet (8 sources) Opioid Agonist Start: 08-27-2018 End: 08-29-2018 Hydrocodone-Acetami nophen 1 TABLET tablet Discontinued 1 {tbl} PO EVERY 4 HOURS NEEDED as needed for Pain 03 19August 27, 2018 12:00am August 28, 2018 12:00am August 29, 2018 12:08am Start: 08-27-2018 End: 08-29-2018 take 1 tablet by mouth every four hours as needed Hydrocodone-Acetaminophen Discontinued 1 TABLET PO EVERY 4 HOURS NEEDED 03 19August 27, 2018 12:00am August 29, 2018 12:08am doxycycline monohydrate 100 mg oral capsule (7 sources) Tetracycline-class Drug Start: 09-16-2024 End: 09-23-2024 take 1 capsule by mouth twice daily doxycycline monohydrate (MONODOX) 100 mg capsule Take 1 capsule by mouth two times a day for 7 days. 14 capsule 09/16/2024 09/23/2024 Discontinued End: 09-16-2024 take 1 capsule by mouth twice daily doxycycline hyclate (VIBRAMYCIN) 100 mg capsule Take 100 mg by mouth two times a day. 09/16/2024 Discontinued 1 ml enoxaparin sodium 150 mg/ml prefilled syringe (8 sources) Low Molecular Weight Heparin Start: 10-26-2014 End: 10-26-2014 Enoxaparin 150 MG/ML syringe Discontinued 130 mg SC Q12@0600,1800 October 26, 2014 12:00am October 26, 2014 11:35am Start: 10-26-2014 End: 10-26-2014 Enoxaparin Discontinued 130 MG SC Q12@0600,1800 October 26, 2014 12:00am October 26, 2014 11:35am ertapenem (6 sources) Penem Antibacterial End: 09-16-2024 inject 1 g intravenously once ertapenem sodium (ERTAPENEM INTRAVENOUS) Inject 1 g intravenously once daily. Per family should stop 06/28/2024 09/16/2024 Discontinued (Course of therapy completed) inject 1 g intravenously once er tapenem sodium (ERTAPENEM INTRAVENOUS) Inject 1 g intravenously once daily. Per family should stop 06/28/2024 Active warfarin sodium 5 mg oral tablet (11 sources) Vitamin K Antagonist Start: 10-26-2014 End: 09-05-2015 take 1 tablet by mouth once daily Warfarin (Jantoven) 5 MG tablet Discontinued 5 mg PO DAILY@1700 October 26, 2014 12:00am September 05, 2015 11:40am WARFARIN SODIUM (WARFARIN ORAL) Take by mouth. Suspended Problems Active Problems Problem Classification Problem Date Documented Da te Episodic/Chronic Acute and unspecified renal failure (4 sources) Acute renal failure syndrome; Translations: [Acute kidney failure, unspecified] Onset: 5 06-24-2024 Episodic Anxiety disorders (14 sources) Anxiety; Translations: [Anxiety disorder, unspecified] Onset: 4 05-23-2024 Chronic Aortic; peripheral; and visceral artery aneurysms (14 sources) Abdominal aortic aneurysm; Translations: [AAA (abdominal aortic aneurysm)] Onset: 4 05-23-2024 Chronic Chronic kidney disease (2 sources) Chronic kidney disease, stage 1; Translations: [Type 2 diabetes mellitus with stage 1 chronic kidney disease, without long-term current use of insulin (HCC)] Onset: 4 Chronic Chronic obstructive pulmonary disease and bronchiectasis (20 sources) Chronic obstructive lung disease; Translations: [Chronic obstructive pulmonary disease, unspecified] Onset: 4 05-24-2024 Chronic Chronic ulcer of skin (6 sources) Non-pressure chronic ulcer of other part of left foot limited to breakdown of skin; Translations: [Ulcer of other part of foot] Onset: 5 06-24-2024 Chronic Coronary atherosclerosis and other heart disease (20 sources) Coronary arteriosclerosis; Translations: [Atherosclerotic heart disease of [place] coronary artery without angina pectoris] Onset: 4 12-20-2021 Chronic Comment on above: Status post stent Coronary atherosclerosis and other heart disease (8 sources) Patient post percutaneous transluminal coronary angioplasty; Translations: [Coronary angioplasty status] 12-20-2021 Episodic Diabetes mellitus with complications (16 sources) Diabetic peripheral neuropathy; Translations: [Type 2 diabetes mellitus with diabetic polyneuropathy] Onset: 4 05-24-2024 Chronic Diabetes mellitus without complication (20 sources) Type 2 diabetes mellitus; Translations: [Type 2 diabetes mellitus without complications] Onset: 4 05-23-2024 Chronic Disorders of lipid metabolism (20 sources) Hyperlipidemia; Translations: [Hyperlipidemia, unspecified] Onset: 4 12-20-2021 Chronic Essential hypertension (20 sources) Hypertensive disorder; Translations: [Essential (primary) hypertension] Onset: 4 11-19-2022 Chronic Infective arthritis and osteomyelitis (except that caused by tuberculosis or sexually transmitted disease) (20 sources) Osteomyelitis of forefoot; Translations: [Osteomyelitis, unspecified] Onset: 4 05-23-2024 Chronic Influenza (8 sources) Influenza due to Influenza A virus; Translations: [Influenza due to other identified influenza virus with other respiratory manifestations] 09-05-2015 Episodic Mood disorders (14 sources) Depressive disorder; Translations: [Depression] Onset: 4 05-23-2024 Chronic Nutritional deficiencies (2 sources) Vitamin D deficiency, unspecified; Translations: [Vitamin D deficiency, unspecified] Onset: Chronic Open wounds of extremities (20 sources) Open wound of toe; Translations: [Unspecified open wound of unspecified toe(s) without damage to nail, initial encounter] Onset: 4 05-28-2024 Episodic Other aftercare (7 sources) Long-term current use of anticoagulant; Translations: [[facility] (current) use of anticoagulants] 11-19-2022 Episodic Other aftercare (2 sources) Encounter for other specified surgical aftercare; Translations: [Encounter for other specified surgical aftercare] Onset: 5 Episodic Other bone disease and musculoskeletal deformities (14 sources) Absence of lower limb; Translations: [Acquired absence of right leg below knee] Onset: 4 05-24-2024 Chronic Other bone disease and musculoskeletal deformities (2 sources) Acquired absence of right leg below knee; Translations: [Acquired absence of right leg below knee] Onset: 4 Chronic Other circulatory disease (1 source) Hypotension, unspecified; Translations: [Hypotension, unspecified] Onset: 5 Episodic Other inflammatory condition of skin (2 sources) Vasculitis limited to the skin, unspecified; Translations: [Vasculitis limited to the skin, unspecified] Onset: 5 Episodic Other liver diseases (8 sources) Cardiac enzymes abnormal; Translations: [Abnormal levels of other serum enzymes] 09-05-2015 Episodic Other nervous system disorders (4 sources) Chronic low back pain; Translations: [Other chronic pain] Onset: 6 12-07-2015 Chronic Other nutritional; endocrine; and metabolic disorders (14 sources) Obese class II; Translations: [Obesity, Class II, BMI 35-39.9] Onset: 4 05-24-2024 Chronic Other screening for suspected conditions (not mental disorders or infectious disease) (20 sources) Electrocardiogram abnormal; Translations: [Abnormal electrocardiogram [ECG] [EKG]] Onset: 5 09-05-2015 Episodic Peripheral and visceral atherosclerosis (20 sources) Occlusion of lower limb artery; Translations: [Unspecified atherosclerosis of [place] arteries of extremities, unspecified extremity] Onset: 4 11-19-2022 Chronic Phlebitis; thrombophlebitis and thromboembolism (20 sources) Deep venous thrombosis; Translations: [Acute embolism and thrombosis of unspecified deep veins of unspecified lower extremity] Onset: 4 12-28-2021 Episodic Pneumonia (except that caused by tuberculosis or sexually transmitted disease) (9 sources) Community acquired pneumonia; Translations: [Pneumonia, unspecified organism] Onset: 5 09-05-2015 Episodic Pulmonary heart disease (16 sources) Pulmonary infarction; Translations: [Other pulmonary embolism without acute cor pulmonale] 09-05-2015 Episodic Rehabilitation care; fitting of prostheses; and adjustment of devices (13 sources) Patient encounter status; Translations: [Encounter for fitting and adjustment of other specified devices] Onset: 4 05-28-2024 Chronic Residual codes; unclassified (14 sources) Obstructive sleep apnea syndrome; Translations: [Obstructive sleep apnea (adult) (pediatric)] Onset: 4 05-23-2024 Chronic Respiratory failure; insufficiency; arrest (adult) (8 sources) Acute hypoxemic respiratory failure; Translations: [Acute respiratory failure with hypoxia] 09-05-2015 Episodic Septicemia (except in labor) (1 source) Sepsis, unspecified organism; Translations: [Sepsis (HCC)] Onset: 5 Episodic Unclassified (1 source) Wound Check Onset: 5 Unclassified (2 sources) Heparin-induced thrombocytopenia, unspecified; Translations: [Heparin-induced thrombocytopenia, unspecified] Onset: 5 Past or Other Problems Problem Classification Problem Date Documented Da te Episodic/Chronic Cancer of bronchus; lung (14 sources) History of malignant neoplasm of thoracic cavity structure; Translations: [Personal history of other malignant neoplasm of bronchus and lung] Onset: 05-23-2024 05-23-2024 Episodic Deficiency and other anemia (2 sources) Iron deficiency anemia, unspecified; Translations: [Iron deficiency anemia, unspecified] Onset: 04-02-2024 Episodic Deficiency and other anemia (1 source) Other vitamin B12 deficiency anemias; Translations: [Other vitamin B12 deficiency anemias] Onset: 04-02-2024 Episodic Deficiency and other anemia (1 source) Vitamin B12 deficiency anemia, unspecified; Translations: [Vitamin B12 deficiency anemia, unspecified] Onset: 06-20-2024 Episodic Fracture of lower limb (7 sources) Open fracture of great toe; Translations: [Displaced unspecified fracture of unspecified great toe, initial encounter for open fracture] Onset: 05-28-2024 05-10-2024 Episodic Malaise and fatigue (15 sources) Asthenia; Translations: [Other malaise] Onset: 05-24-2024 05-24-2024 Episodic Other aftercare (2 sources) Encounter for orthopedic aftercare following surgical amputation; Translations: [Encounter for orthopedic aftercare following surgical amputation] Onset: 07-25-2024 Episodic Other bone disease and musculoskeletal deformities (2 sources) Acquired absence of other left toe(s); Translations: [Acquired absence of other left toe(s)] Onset: 07-25-2024 Episodic Other connective tissue disease (1 source) Other specified soft tissue disorders; Translations: [Swelling of left foot] Onset: 07-02-2024 Episodic Other connective tissue disease (1 source) Muscle wasting and atrophy, not elsewhere classified, right lower leg; Translations: [Muscle wasting and atrophy, not elsewhere classified, right lower leg] Onset: 07-18-2024 Episodic Other connective tissue disease (1 source) Muscle wasting and atrophy, not elsewhere classified, left lower leg; Translations: [Muscle wasting and atrophy, not elsewhere classified, left lower leg] Onset: 07-18-2024 Episodic Other nervous system disorders (2 sources) Unsteadiness on feet; Translations: [Unsteadiness on feet] Onset: 07-19-2024 Episodic Other nervous system disorders (2 sources) Unspecified lack of coordination; Translations: [Unspecified lack of coordination] Onset: 07-25-2024 Episodic Other nutritional; endocrine; and metabolic disorders (14 sources) Adult failure to thrive syndrome; Translations: [Adult failure to thrive] Onset: 05-24-2024 05-24-2024 Episodic Other nutritional; endocrine; and metabolic disorders (1 source) Adult failure to thrive; Translations: [Failure to thrive in adult] Onset: 05-23-2024 Episodic Residual codes; unclassified (1 source) Other specified postprocedural states; Translations: [Post-operative state] Onset: 07-02-2024 Episodic Residual codes; unclassified (2 sources) Insomnia, unspecified; Translations: [Insomnia, unspecified] Onset: 04-02-2024 Episodic Skin and subcutaneous tissue infections (19 sources) Cellulitis of left foot; Translations: [Cellulitis of left lower limb] Onset: 05-23-2024 05-23-2024 Episodic Spondylosis; intervertebral disc disorders; other back problems (10 sources) Chronic low back pain; Translations: [Lumbago with sciatica, right side] Onset: 12-07-2015 12-07-2015 Episodic Results Test Name Value Interpretation Reference Range Facility Basic metabolic 2000 panelon 12-08-2024 Anion gap [Moles/Vol] 10 mmol/L Normal 8-15 [facility] Comment on above: Order Comment: Speci men Type: BLOOD SPECIMENOrdering Facility: [facility] Address: [address] [place] [address] Performed By: #### 2 4321-2 ####[facility] LABORATORYCLIA [id number] [place] [address] [place] Calcium [Mass/Vol] 8.6 mg/dL Normal 8.5-10.2 [facility] Comment on above: Order Comment: Speci men Type: BLOOD SPECIMENOrdering Facility: [facility] Address: [address] [place] [address] Performed By: #### 2 4321-2 ####[facility] LABORATORYCLIA [id number] [place] [address] [place] Chloride [Moles/Vol] 102 mmol/L Normal 98-107 [facility] Comment on above: Order Comment: Speci men Type: BLOOD SPECIMENOrdering Facility: [facility] Address: [address] [place] [address] Performed By: #### 2 4321-2 ####[facility] LABORATORYCLIA [id number] [place] [address] [place] CO2 [Moles/Vol] 28 mmol/L Normal 22-30 [facility] Comment on above: Order Comment: Speci men Type: BLOOD SPECIMENOrdering Facility: [facility] Address: [address] [place] [address] Performed By: #### 2 4321-2 ####[facility] LABORATORYCLIA [id number] [place] [address] [place] Creatinine [Mass/Vol] 0.85 mg/dL Normal 0.73-1.22 [facility] Comment on above: Order Comment: Specalejandro carrillo Type: BLOOD SPECIMENOrdering Facility: [facility] Address: [address] [place] [address] Performed By: #### 2 4321-2 ####[facility] LABORATORYCLIA [id number] [address] [place] Creatinine and Glomerular filtration rate.predicted panel (S/P/Bld) 95 mL/min/1.73m??? Normal >=60 [facility] Comment on above: Order Comment: Raudel lorena Type: BLOOD SPECIMENOrdering Facility: [facility] Address: [address] [place] [address] Result Comment: Sachi mated Glomerular Filtration Rate (eGFR) is calculated using the 2020 CKD-EPI creatinine equation. This equation utilizes serum creatinine, sex, and age as parameters. The creatinine assay has traceable calibration to isotope dilution-mass spectrometry. Refer to KDIGO guidelines for clinical interpretation. In patients with unstable renal function, e.g. those with acute kidney injury, the eGFR may not accurately reflect actual GFR. Performed By: #### 2 4321-2 ####[facility] LABORATORYCLIA [id number] [place] [address] [place] Glucose [Mass/Vol] 153 mg/dL High 74-99 [facility] Comment on above: Order Comment: Raudel carrillo Type: BLOOD SPECIMENOrdering Facility: [facility] Address: [address] [place] [address] Result Comment: The [place] [employer] (ADA) provides guidance for cutoff values for fasting glucose and random glucose. The ADA defines fasting as no caloric intake for at least 8 hours. Fasting plasma glucose results between 100 to 125 mg/dL indicate increased risk for diabetes (prediabetes). Fasting plasma glucose results greater than or equal to 126 mg/dL meet the criteria for diagnosis of diabetes. In the absence of unequivocal hyperglycemia, results should be confirmed by repeat testing. In a patient with classic symptoms of hyperglycemia or hyperglycemic crisis, random plasma glucose results greater than or equal to 200 mg/dL meet the criteria for diagnosis of diabetes. Reference: Standards of Medical Care in Diabetes 2016, [place] [employer]. Diabetes Care. 2016.39(Suppl 1). Performed By: #### 2 4321-2 ####[facility]ORATORYCLIA [id number] [place] [address] [place] Potassium [Moles/Vol] 4.2 mmol/L Normal 3.7-5.1 [facility] Comment on above: Order Comment: Speci men Type: BLOOD SPECIMENOrdering Facility: [facility] Address: [address] [place] [address] Performed By: #### 2 4321-2 ####[facility] LABORATORYCLIA [id number] [place] [address] [place] Sodium [Moles/Vol] 140 mmol/L Normal 136-144 [facility] Comment on above: Order Comment: Speci men Type: BLOOD SPECIMENOrdering Facility: [facility] Address: [address] [place] [address] Performed By: #### 2 4321-2 ####[facility] LABORATORYCLIA [id number] [address] [place] Urea nitrogen [Mass/Vol] 17 mg/dL Normal 9-24 [facility] Comment on above: Order Comment: Speci men Type: BLOOD SPECIMENOrdering Facility: [facility] Address: [address] [place] [address] Performed By: #### 2 4321-2 ####[facility] LABORATORYCLIA [id number] [place] [address] [place] CBC panel Auto (Bld)on 12-08 Erythrocyte distribution width (RBC) [Ratio] 17.2 % High 11.5-15.0 [facility] Comment on above: Order Comment: Speci men Type: BLOOD SPECIMENOrdering Facility: [facility] Address: [address] [place] [address] Performed By: #### 5 8410-2 ####[facility] LABORATORYCLIA [id number] [address] [place] Hematocrit (Bld) [Volume fraction] 42.5 % Normal 39.0-51.0 [facility] Comment on above: Order Comment: Speci men Type: BLOOD SPECIMENOrdering Facility: [facility] Address: [address] [place] [address] Performed By: #### 5 8410-2 ####[facility] LABORATORYCLIA [id number] [address] Hemoglobin (Bld) [Mass/Vol] 13.3 g/dL Normal 13.0-17.0 [facility] Comment on above: Order Comment: Speci men Type: BLOOD SPECIMENOrdering Facility: [facility] Address: [address] [place] [address] Performed By: #### 5 8410-2 ####[facility] LABORATORYCLIA [id number] [address] OF [facility] MCH (RBC) [Entitic mass] 25.6 pg Low 26.0-34.0 [facility] Comment on above: Order Comment: Speci men Type: BLOOD SPECIMENOrdering Facility: [facility] Address: [address] [place] [address] Performed By: #### 5 8410-2 ####[facility] LABORATORYCLIA [id number] [address] MCHC (RBC) [Mass/Vol] 31.3 g/dL Normal 30.5-36.0 [facility] Comment on above: Order Comment: Speci men Type: BLOOD SPECIMENOrdering Facility: [facility] Address: [address] [place] [address] Performed By: #### 5 8410-2 ####[facility]ORATORYCLIA [id number] [address] [place] [facility] MCV (RBC) [Entitic vol] 81.9 fL Normal 80.0-100.0 [facility] Comment on above: Order Comment: Speci men Type: BLOOD SPECIMENOrdering Facility: [facility] Address: [address] [place] [address] Performed By: #### 5 8410-2 ####[facility]ORATORYCLIA [id number] [address] Nucleated RBC (Bld) [#/Vol] 10*3/uL Normal <0.01 [facility] Comment on above: Order Comment: Speci men Type: BLOOD SPECIMENOrdering Facility: [facility] Address: [address] [place] [address] Performed By: #### 5 8410-2 ####[facility] LABORATORYCLIA [id number] [place] [address] [place] Platelet mean volume (Bld) [Entitic vol] 10.0 fL Normal 9.0-12.7 [facility] Comment on above: Order Comment: Speci men Type: BLOOD SPECIMENOrdering Facility: [facility] Address: [address] [place] [address] Performed By: #### 5 8410-2 ####[facility] LABORATORYCLIA [id number] [place] [address] [place] Platelets (Bld) [#/Vol] 246 10*3/uL Normal 150-400 [facility] Comment on above: Order Comment: Speci men Type: BLOOD SPECIMENOrdering Facility: [facility] Address: [address] [place] [address] Performed By: #### 5 8410-2 ####[facility] LABORATORYCLIA [id number] [place] [address] [place] RBC (Bld) [#/Vol] 5.19 10*6/uL Normal 4.20-6.00 [facility] Comment on above: Order Comment: Speci men Type: BLOOD SPECIMENOrdering Facility: [facility] Address: [address] [place] [address] Performed By: #### 5 8410-2 ####[facility]ORATORYCLIA [id number] [place] [address] [place] WBC (Bld) [#/Vol] 10.93 10*3/uL Normal 3.70-11.00 [facility] Comment on above: Order Comment: Speci men Type: BLOOD SPECIMENOrdering Facility: [facility] Address: [address] [place] [address] Performed By: #### 5 8410-2 ####[facility]OSPITALIA [id number] [place] [address] [facility] LINDSAYon 12-08-2024 [facility] HNO ID: [id number] Author: TEDDY CONWAY MD Service: Hospital Medicine Author Type: Resident Type: Discharge Summary Filed: 12/10/2024 10:23 Note Text: Attestation signed by Teddy Conway MD at 12/10/2024 10:23 AM [facility] ATTENDING ATTESTATION: I saw and evaluated the patient on rounds on 12/08/2024. Discussed case with the medicine team and agree with resident's findings and plan as documented in the resident's note. >30 minutes spent on patient discharge. Teddy Conway MD DISCHARGE SUMMARY PATIENT NAME: Mitul Oakes ADMISSION DATE: 12/03/2024 DISCHARGE DATE: 12/08/2024 ATTENDING PHYSICIAN: Teddy Conway MD Code Status: Code Status: Full Code Highest Readmission Risk Score: 19 The 30 day readmissions risk score is derived from an internally validated risk model which evaluates patient level characteristics, utilization history, medication orders and lab results up until the day of discharge. Patients with a score of 39 or above are considered highest risk for readmission. Specific patient level drivers will be listed at the bottom of the summary. The 30 day readmissions risk score is derived from an internally validated risk model which evaluates patient level characteristics, utilization history, medication orders and lab results up until the day of discharge. Patients with a score of 40 or above are considered highest risk for readmission. Specific patient level drivers will be listed at the bottom of the summary. CONSULTING TEAMS DURING HOSPITALIZATION: Treatment Team: Attending Provider: Teddy Conway MD Primary Service: Alexandria Grey REASON FOR HOSPITALIZATION: Acute respiratory failure with hypoxia (HCC) DIAGNOSIS: Acute respiratory failure with hypoxia (HCC) Body mass index is 38.35 kg/m?., OPERATIONS DURING HOSPITALIZATION: None PROCEDURES DURING HOSPITALIZATION: No admission procedures for hospital encounter. HOSPITAL COURSE: Mr. 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 Was on Vancomycin and Ertapenem for Left foot and toe infection. Changed Ertapenem to Meropenem for pseudomonas coverage. In ED, Wbc 18.7, absolute neutrophil count 16.04. CXR - small right pleural effusion with adjacent atelectasis. He was treated for Pneumonia and prednosone for 5 days for COPD exacerbation. Antibiotics for osteomyelitis- vanc and ertapenem were also resumed. He deems stable for discharge on 2 liters oxygen and will need outpatient follow up with PCP and Pulmonary. He is on ASA, clopidogrel, and low dose rivaroxaban, should clarify indication for DAPT in combo with low dose DOAC. Will need records from [place] New Medications: Current Discharge Medication List LABS AND PROCEDURES PENDING AT DISCHARGE: No pending results. PATIENT CONDITION AT DISCHARGE: Stable DISCHARGE DISPOSITION: Senior Living Facility WOUND/SURGICAL SITE CARE: Keep your dressing clean and dry DIET: Low Salt Low Fat Low Cholesterol Low Triglycerides Resume pre-hospital diet ACTIVITY: Resume pre-hospital activity ALLERGIES Allergen Reactions Heparin Other: See Comments HIIT [facility]. 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, caused right BKA Amitryptyline [[place]* Itching Per patient DISCHARGE MEDICATION: Medication List CHANGE how you take these medications carvedilol 25 mg tablet Commonly known as: COREG Take 1 tablet by mouth two times a day with meals. What changed: how much to take CONTINUE taking these medications acetaminophen 325 mg tablet Commonly known as: TYLENOL aspirin, enteric coated 81 mg EC tablet Commonly known as: ASPIRIN, ENTERIC COATED atorvastatin 80 mg tablet Commonly known as: LIPITOR bacitracin 500 unit/gram Pack hondtkosbk-ldrpuevl-h ormoterol 160-9-4.8 mcg/actuation HFA aerosol inhaler Commonly known as: BREZTRI buPROPion XL 300 mg 24 hr tablet Commonly known as: WELLBUTRIN XL busPIRone 7.5 mg tablet Commonly known as: BUSPAR clopidogrel 75 mg tablet Commonly known as: PLAVIX ertapenem 1 gram injection Commonly known as: INVanz ezetimibe 10 mg tablet Commonly known as: ZETIA glucagon 1 mg/mL injection insulin glargine-yfgn 100 unit/mL (3 mL) insulin pen Commonly known as: SEMGLEE Inject 25 Units subcutaneously once daily. isosorbide mononitrate ER 30 mg 24 hr tablet Commonly known as: IMDUR melatonin (more content not included)... Normal [facility] CONSULT PROGon 12-08-2024 CONSULT PROG HNO ID: [id number] Author: HOWARD DUBOIS RPh Service: Pharmacy Author Type: Pharmacist Type: Consult Progress Note Filed: 12/08/2024 12:45 Note Text: PHARMACY VANCOMYCIN DOSING NOTE Patient Name: Mitul Oakes Admission Date: 12/03/2024 Date of Consult: 12/08/2024 Time of Consult: 12:37 PM Indication: Bone and joint infection Goal Range: 15-20 mcg/mL RECOMMENDATIONS/PLAN: Pharmacy consulted for vancomycin dosing for Mitul Oakes, a 69 year old male. 1. Patient is currently ordered vancomycin 1.75g iv q12h. Today is day 3 (since resuming in the hospital) of therapy. 2. The most recent vancomycin level was 28.1 mcg/mL drawn at 1134 on 12/08/24. This is a 11 hour level on the 3rd day of therapy. 3. Will decrease vancomycin to 1.75 g with a dosing interval of q24h. 4. The next vancomycin level will be ordered for prior to 5th dose if still admitted unless clinically indicated sooner. (Pharmacy will order) Patient was receiving iv ertapenem and vancomycin at [facility] per the [place] prior to admission. I had spoken with [place] pharmacist and reviewed facility MAR. Patient had been on vancomycin 1.5g iv q12h in early November with a trough of 28.3, so dose was changed to 1g q12h. This regimen resulted in a trough of 24, so dose was changed to 1.75g iv q24h to begin on 12/03, the day he was admitted at [facility]. Vancomycin was held here the day after admission and then resumed on 12/06 at 1.75g iv q12h which has resulted in a trough of 28.1. Will hold vancomycin dose today and [facility] 1.75g iv q24h to begin in the am on 12/09/24. If patient is not discharged, will plan a trough prior to 5th dose, but anticipate he will be discharged soon. Renal function has remained stable. Patient should be discharged on vancomycin 1.75g iv q24h We will follow patient renal function, vancomycin levels and doses with you during the course of therapy. Additional recommendations will appear in follow up notes. If you have any questions, please contact Tatiana Dubois [place] [employer] [place] [phone]. . Age: [age] year old Allergies: ALLERGIES Allergen Reactions Heparin Other: See Comments HIIT [facility] to [facility] on [facility]/24. 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, caused right BKA Amitryptyline [Justin* Itching Per patient Last 3 Encounter Wt Readings: Date: Wt: 12/03/2024 124.7 kg (275 lb) 07/02/2024 124.7 kg (275 lb) 05/23/2024 126.4 kg (278 lb 10.6 oz) Last 1 Encounter Ht Readings: Date: Ht: 12/03/2024 180.3 cm (5' 11") Estimated Creatinine Clearance: 111.9 mL/min (based on SCr of 0.85 mg/dL). Temp (24hrs), Av.3 ?C (97.4 ?F), Min:36.2 ?C (97.2 ?F), Max:36.4 ?C (97.5 ?F) - Current Temp: 36.4 ?C (97.5 ?F) Labs BUN (mg/dL) Date Value 12/08/2024 17 12/07/2024 16 12/06/2024 14 Creatinine (mg/dL) Date Value 12/08/2024 0.85 12/07/2024 0.86 12/06/2024 0.85 WBC (k/uL) Date Value 12/08/2024 10.93 12/07/2024 8.36 12/06/2024 9.94 Vancomycin Levels: Vancomycin (ug/mL) Date/Time Value 12/08/2024 1134 28.1 (H) 06/06/2024 1355 14.8 Howard Dubois [facility] CONSULT PROG HNO ID: [id number] Author: ANY GRANT DO Service: Infectious Disease Author Type: Physician Type: Consult Progress Note Filed: 12/08/2024 13:36 Note Text: PROGRESS NOTE INFECTIOUS DISEASE Some elements of the history, review of systems, and medical decision-making may be copied from my previous notes, however, all information has been reviewed and verified by me today. SERVICE DATE: December 08, 2024 SERVICE TIME: 11:56 AM Following for L 2nd toe infection possibly osteomyelitis and parainfluenza 3 infection. Reviewed available chart/notes/labs/micr obiological data and imaging. Subjective Interval Events: Overall stable and respiratory status better. Started back on vancomycin and ertapenem [facility]. inquired about when to leave hospital. Medications: Current Facility-Administered Medications Medication Dose Route Frequency NaCl 0.9% iv flush bag 20 mL INTRAVENOUS PRN pregabalin 200 mg cap(s) (LYRICA) 200 mg ORAL TID carvedilol 25 mg tab(s) (COREG) 25 mg ORAL BID w MEALS ezetimibe 10 mg tab(s) (ZETIA) 10 mg ORAL DAILY isosorbide mononitrate ER 30 mg tab(s) (IMDUR) 30 mg ORAL DAILY spironolactone 12.5 mg tab(s) (ALDACTONE) 12.5 mg ORAL DAILY clopidogrel 75 mg tab(s) (PLAVIX) 75 mg ORAL DAILY rivaroxaban 2.5 mg tab(s) (XARELTO) 2.5 mg ORAL BID atorvastatin 80 mg tab(s) (LIPITOR) 80 mg ORAL DAILY insulin glargine 17 Units pen (long acting) 17 Units SUBCUTANEOUS BID dextrose 15 gram/32 mL 15 g (TRUEPLUS) 15 g ORAL PRN Or glucagon 1 mg injection 1 mg INTRAMUSCULAR PRN Or dextrose 10% iv bolus 12.5 g INTRAVENOUS PRN insulin lispro injection (rapid acting) (ADMElog) SUBCUTANEOUS w MEALS buPROPion XL 300 mg tab(s) (WELLBUTRIN XL) 300 mg ORAL DAILY busPIRone 7.5 mg tab(s) (BUSPAR) 7.5 mg ORAL BID iv contrast (radiology procedure) INTRAVENOUS DIRECTED PRN levoFLOXacin 500 mg tab(s) (LEVAQUIN) 500 mg ORAL DAILY (6 AM) benzocaine-menthol 1 lozenge (CEPACOL) 1 lozenge MUCOUS MEMBRANE (TOPICAL MOUTH AND THROAT) q 2 H PRN guaiFENesin 600 mg ER tab(s) (MUCINEX) 600 mg ORAL q 12 H arformoterol 15 mcg nebulizer solution (BROVANA) 15 mcg INHALATION q 12 H albuterol 2.5 mg /3 mL (0.083 %) 2.5 mg (PROVENTIL) 2.5 mg INHALATION q 4 H while awake vancomycin dosing and monitoring per pharmacy OTHER As Directed vancomycin 1.75 g in D5W 500 mL (VANCOCIN) 0.015 g/kg/dose INTRAVENOUS q 12 HR ertapenem 1 g in NaCl 0.9% 100 mL Vial-Bag (INVanz) 1 g INTRAVENOUS q 24 H traZODone 25 mg tab(s) (DESYREL) 25 mg ORAL AT BEDTIME Objective Physical Exam: BP 121/65 Pulse 66 Temp 36.4 ?C (97.5 ?F) (Axillary) Resp 18 Ht 180.3 cm (5' 11") Wt 124.7 kg (275 lb) SpO2 (!) 89% BMI 38.35 kg/m? Physical Exam Constitutional: Appearance: He is obese. He is ill-appearing. HENT: Head: Normocephalic and atraumatic. Cardiovascular: Rate and Rhythm: Normal rate and regular rhythm. Pulmonary: Effort: Pulmonary effort is normal. Breath sounds: Transmitted upper airway sounds present. Decreased breath sounds and rhonchi (mild and better) present. Abdominal: General: There is no distension. Musculoskeletal: General: Deformity (R BKA) present. Cervical back: Normal range of motion. Skin: General: Skin is warm and dry. Neurological: Mental Status: Mental status is at baseline. Psychiatric: Mood and Affect: Mood normal. Lab data: WBC (k/uL) Date Value 12/08/2024 10.93 12/07/2024 8.36 12/06/2024 9.94 12/05/2024 14.05 12/04/2024 9.75 Creatinine (mg/dL) Date Value 12/08/2024 0.85 12/07/2024 0.86 12/06/2024 0.85 12/05/2024 0.90 12/04/2024 0.86 Lab Results Component Value Date NEUTP 85.7 12/03/2024 ABSNEUT 16.04 12/03/2024 LYMPHP 5.8 12/03/2024 ABSLYMPH 1.08 12/03/2024 ABSMONO 1.20 12/03/2024 EODINP 0.8 12/03/2024 ABSEOSIN 0.15 12/03/2024 BASOP 0.7 12/03/2024 ABSBASO 0.14 12/03/2024 Lab Results Component Value Date PLT 246 12/08/2024 HB 13.3 12/08/2024 HCT 42.5 12/08/2024 ALB 3.5 12/03/2024 CA 8.6 12/08/2024 TBILI 0.6 12/03/2024 ALKPHOS 167 12/03/2024 AST 19 12/03/2024 GLUC 153 12/08/2024 BUN 17 12/08/2024 NA 140 12/08/2024 K 4.2 12/08/2024 CHLOR 102 12/08/2024 CO2 28 12/08/2024 ANION 10 12/08/2024 ALT 18 12/03/2024 Sed Rate, Westergren (mm/hr) Date Value 05/24/2024 15 CRP (mg/dL) Date Value 05/23/2024 1.3 Vancomycin (ug/mL) Date Value 06/06/2024 14.8 06/02/2024 16.9 05/31/2024 21.9 05/28/2024 16.5 05/26/2024 14.3 Estimated Creatinine Clearance: 111.9 mL/min (based on SCr of 0.85 mg/dL). Microbiology data: Positive Micro-30 Days Procedure Component Value Units Date/Time Respiratory Culture and Stain [[id number]] (Abnormal) Collected: 12/06/24 1226 Order Status: Completed Specimen: Sputum Updated: 12/07/24 0734 Culture, Respiratory Few Normal respiratory mickey present Gram Stain Moderate Mixed oral mickey Few Polymorphonuclear leukocytes Few Epithelial cells Resp (more content not included)... Normal [facility] NURSING PROGon 12-08-2024 NURSING PROG HNO ID: [id number] Author: JOO SANTANA, ALEXANDRE Service: Nursing Author Type: Registered Nurse Type: Nursing Progress Note Filed: 12/08/2024 15:48 Note Text: SpO2 Ra at rest 90% SpO2 Ra on exertion 89% (stand pivot to chair) SpO2 91% 2L on Exertion (stand pivot to chair) Normal [facility] THERAPY NTon 12-08-2024 THERAPY NT HNO ID: [id number] Author: REYNA KENNEDY OTR/David Service: Occupational Therapy Author Type: Occupational Therapist Type: Therapy (PT/OT/Speech/Resp) Filed: 12/08/2024 09:41 Note Text: Occupational Therapy Evaluation Summary SERVICE DATE: 12/08/2024 SERVICE TIME: 856 to 914 ROOM: [place] [address] OT 6 Clicks Score: 18 DISCHARGE RECOMMENDATIONS Subacute/SNF Recommended Discharge Disposition Due to: Patient requires daily (5x/week) skilled therapy at next level of care., ADL impairment ASSESSMENT Response to Therapy Interventions: Good Participation in Activities PRECAUTIONS Bed/Chair Alarm, Fall Risk CURRENT HOSPITAL COURSE SOB, COPD, parainfluenza Relevant Past Medical History: R BKA, DM, neuropathy, DVT, COPD HOME LIVING Patient Lives With: Facility Care ([facility] x 4 months per patient) Assistance Available: 24-Hour Entry To Home: No Stairs Equipment Owned: Cane, Wheelchair- Manual, Wheelchair- Power PRIOR FUNCTIONAL LEVEL Required Assistance Assistance Required With: Ambulation, Self Care Patient states he has been active with therapy, working on walking short distances with prosthetic, pivoting to w/c, getting assist with some ADLs Baseline Cognition: Oriented to self, Oriented to place, Oriented to time, Oriented to situation SUBJECTIVE agreeable to session COGNITION Responsiveness: Alert Follows Commands: 2-step Commands Executive Function Deficits: Safety Awareness THERAPY DIAGNOSIS Reduced mobility-other, Decreased activities of daily living (ADL), Muscle Weakness (generalized), Unsteadiness on feet, General symptoms and signs-other TREATMENT INTERVENTIONS Evaluation Skilled Treatment Time (minutes): 18 $ Evaluation - Moderate (98525) Billed Units: 1 unit TRAINING AND EDUCATION PROVIDED Bed Mobility, Benefits of In-Hospital Mobility, Discharge Planning, Disease Specific Education, Functional Mobility Involving ADLs, Lower Extremity Dressing, Safety/Judgment, Role of Occupational Therapy, Sitting Balance to Improve [place] with ADLs/Self-Care, Standing Balance to Improve [place] with ADLs/Self-Care, Transfer - Sit to Stand, Transfer - Toilet/Commode, Upper Extremity Dressing THERAPEUTIC SKILLS USED Activity Dosing, Cues for Sequencing/Proper Technique for Activity, Cuing Tactile, Cuing Verbal, Cuing Visual, Physical Assist FUNCTIONAL STATUS Activities of Daily Living Assist Level Additional Information Feeding Set Up Grooming Contact Guard Assistance Bathing Upper Body Minimal Assistance Bathing Lower Body Minimal Assistance Dressing Upper Body Minimal Assistance Dressing Lower Body Minimal Assistance Donning sock at the edge of bed. Toileting Minimal Assistance Mobility Assist Level Additional Information Bed Mobility Supine To Sit: Contact Guard Assistance Sit To Supine: Contact Guard Assistance Sit to Stand Minimal Assistance Stand to Sit Minimal Assistance Bed to Chair Moderate Assistance Bed To Chair Transfer Type: Stand Pivot Bed To Chair Transfer Equipment: Gait Belt Moderate direction for safety and fall prevention. Patient unsteady on left foot. R prosthetic not available at this time. Instructed patient on the benefit and value of receiving continued OT services at d/c to increase independence with self care and functional transfers. Toilet/Commode Shower Functional Mobility STRENGTH WFL BALANCE Static Standing Balance: Fair Dynamic Standing Balance: Fair GOALS Grooming with: Set Up Upper Body Bathing with: Independent Upper Body Dressing with: Independent Lower Body Bathing with: Stand By Assistance Lower Body Dressing with: Stand By Assistance Toilet Hygiene with: Independent Chair Transfer with: Supervision Toilet Transfer with: Supervision Demonstrate Competence with Education with: Supervision (safety, fall prevention) Rehab Potential: Good Good Rehab Potential Due To: Good motivation ACUTE CARE TREATMENT PLAN OT Frequency: 2 Times Per Week Treatment Interventions: Education, Self Care/Home Management, Energy Conservation Training, Strengthening, Functional Mobility Training, Balance Training Plan for Next Visit: Bathing Training, Dressing Training SIGNATURE: Reyna Etta, OTR/L PATIENT NAME: Mitul Oakes DATE: December 08, 2024 TIME: 9:39 AM Normal [facility] Vancomycin random [Mass/Vol] on 12-08-2024 Vancomycin [Mass/Vol] 28.1 ug/mL High 10.0-20.0 [facility] Comment on above: Order Comment: Speci men Type: BLOOD SPECIMENOrdering Facility: [facility] Address: [address] [place] [address] Result Comment: Refe rence ranges and high/low indicator flags are provided as general guidelines only. The treating physician must determine appropriate target levels/dosing based on the specific clinical situation. Performed By: #### 4 091-5 ####[facility] LABORATORYCLIA [id number] [place] [address] [place] Basic metabolic 2000 panelon 12-07-2024 Anion gap [Moles/Vol] 8 mmol/L Normal 8-15 [facility] Comment on above: Order Comment: Speci men Type: BLOOD SPECIMENOrdering Facility: [facility] Address: [address] [place] [address] Performed By: #### 2 4321-2 ####[facility] LABORATORYCLIA [id number] [place] [address] [place] Calcium [Mass/Vol] 9.1 mg/dL Normal 8.5-10.2 [facility] Comment on above: Order Comment: Speci men Type: BLOOD SPECIMENOrdering Facility: [facility] Address: [address] [place] [address] Performed By: #### 2 4321-2 ####[facility] LABORATORYCLIA [id number] [place] [address] [place] Chloride [Moles/Vol] 98 mmol/L Normal 98-107 [facility] Comment on above: Order Comment: Speci men Type: BLOOD SPECIMENOrdering Facility: [facility] Address: [address] [place] [address] Performed By: #### 2 4321-2 ####[facility]ORATORYCLIA [id number] [address] [place] CO2 [Moles/Vol] 31 mmol/L High 22-30 [facility] Comment on above: Order Comment: Speci men Type: BLOOD SPECIMENOrdering Facility: [facility] Address: [address] [place] [address] Performed By: #### 2 4321-2 ####[facility]ORATORYCLIA [id number] [address] [place] Creatinine [Mass/Vol] 0.86 mg/dL Normal 0.73-1.22 [facility] Comment on above: Order Comment: Speci men Type: BLOOD SPECIMENOrdering Facility: [facility] Address: [address] [place] [address] Performed By: #### 2 4321-2 ####[facility] LABORATORYCLIA [id number] [address] Creatinine and Glomerular filtration rate.predicted panel (S/P/Bld) 94 mL/min/1.73m??? Normal >=60 [facility] Comment on above: Order Comment: Speci men Type: BLOOD SPECIMENOrdering Facility: [facility] Address: [address] [place] [address] Result Comment: Sachi mated Glomerular Filtration Rate (eGFR) is calculated using the 2020 CKD-EPI creatinine equation. This equation utilizes serum creatinine, sex, and age as parameters. The creatinine assay has traceable calibration to isotope dilution-mass spectrometry. Refer to KDIGO guidelines for clinical interpretation. In patients with unstable renal function, e.g. those with acute kidney injury, the eGFR may not accurately reflect actual GFR. Performed By: #### 2 4321-2 ####[facility]ATORYCLIA [id number] [address] [place] Glucose [Mass/Vol] 175 mg/dL High 74-99 [facility] Comment on above: Order Comment: Speci men Type: BLOOD SPECIMENOrdering Facility: [facility] Address: [address] [place] [address] Result Comment: The [place] [employer] (ADA) provides guidance for cutoff values for fasting glucose and random glucose. The ADA defines fasting as no caloric intake for at least 8 hours. Fasting plasma glucose results between 100 to 125 mg/dL indicate increased risk for diabetes (prediabetes). Fasting plasma glucose results greater than or equal to 126 mg/dL meet the criteria for diagnosis of diabetes. In the absence of unequivocal hyperglycemia, results should be confirmed by repeat testing. In a patient with classic symptoms of hyperglycemia or hyperglycemic crisis, random plasma glucose results greater than or equal to 200 mg/dL meet the criteria for diagnosis of diabetes. Reference: Standards of Medical Care in Diabetes 2016, [place] [employer]. Diabetes Care. 2016.39(Suppl 1). Performed By: #### 2 4321-2 ####[facility] LABORATORYCLIA [id number] [place] [address] [place] Potassium [Moles/Vol] 4.2 mmol/L Normal 3.7-5.1 [facility] Comment on above: Order Comment: Specalejandro carrillo Type: BLOOD SPECIMENOrdering Facility: [facility] Address: [address] [place] [address] Performed By: #### 2 4321-2 ####[facility]ORATORYCLIA [id number] [place] [address] [place] Sodium [Moles/Vol] 137 mmol/L Normal 136-144 [facility] Comment on above: Order Comment: Raudel carrillo Type: BLOOD SPECIMENOrdering Facility: [facility] Address: [address] [place] [address] Performed By: #### 2 4321-2 ####[facility]ORATORYCLIA [id number] [address] [place] Urea nitrogen [Mass/Vol] 16 mg/dL Normal 9-24 [facility] Comment on above: Order Comment: Raudel carrillo Type: BLOOD SPECIMENOrdering Facility: [facility] Address: [address] [place] [address] Performed By: #### 2 4321-2 ####[facility]ATORYCLIA [id number] [place] [address] [place] CBC panel Auto (Bld)on 12-07 Erythrocyte distribution width (RBC) [Ratio] 17.2 % High 11.5-15.0 [facility] Comment on above: Order Comment: Speci men Type: BLOOD SPECIMENOrdering Facility: [facility] Address: [address] [place] [address] Performed By: #### 5 8410-2 ####[facility] LABORATORYCLIA [id number] [address] OF [facility] Hematocrit (Bld) [Volume fraction] 41.3 % Normal 39.0-51.0 [facility] Comment on above: Order Comment: Speci men Type: BLOOD SPECIMENOrdering Facility: [facility] Address: [address] [place] [address] Performed By: #### 5 8410-2 ####[facility]ORATORYCLIA [id number] [address] [place] Hemoglobin (Bld) [Mass/Vol] 13.3 g/dL Normal 13.0-17.0 [facility] Comment on above: Order Comment: Speci men Type: BLOOD SPECIMENOrdering Facility: [facility] Address: [address] [place] [address] Performed By: #### 5 8410-2 ####[facility]ORATORYCLIA [id number] [address] [place] MCH (RBC) [Entitic mass] 25.6 pg Low 26.0-34.0 [facility] Comment on above: Order Comment: Speci men Type: BLOOD SPECIMENOrdering Facility: [facility] Address: [address] [place] [address] Performed By: #### 5 8410-2 ####[facility]ATORYCLIA [id number] [address] [place] MCHC (RBC) [Mass/Vol] 32.2 g/dL Normal 30.5-36.0 [facility] Comment on above: Order Comment: Speci men Type: BLOOD SPECIMENOrdering Facility: [facility] Address: [address] [place] [address] Performed By: #### 5 8410-2 ####[facility]ORATORYCLIA [id number] [address] [place] MCV (RBC) [Entitic vol] 79.4 fL Low 80.0-100.0 [facility] Comment on above: Order Comment: Speci men Type: BLOOD SPECIMENOrdering Facility: [facility] Address: [address] [place] [address] Performed By: #### 5 8410-2 ####[facility]ORATORYCLIA [id number] [address] [place] Nucleated RBC (Bld) [#/Vol] 10*3/uL Normal <0.01 [facility] Comment on above: Order Comment: Speci men Type: BLOOD SPECIMENOrdering Facility: [facility] Address: [address] [place] [address] Performed By: #### 5 8410-2 ####[facility]ORATORYCLIA [id number] [address] Platelet mean volume (Bld) [Entitic vol] 9.8 fL Normal 9.0-12.7 [facility] Comment on above: Order Comment: Speci men Type: BLOOD SPECIMENOrdering Facility: [facility] Address: [address] [place] [address] Performed By: #### 5 8410-2 ####[facility]ORATORYCLIA [id number] [address] Platelets (Bld) [#/Vol] 243 10*3/uL Normal 150-400 [facility] Comment on above: Order Comment: Speci men Type: BLOOD SPECIMENOrdering Facility: [facility] Address: [address] [place] [address] Performed By: #### 5 8410-2 ####[facility]ATORYCLIA [id number] [address] [place] RBC (Bld) [#/Vol] 5.20 10*6/uL Normal 4.20-6.00 [facility] Comment on above: Order Comment: Speci men Type: BLOOD SPECIMENOrdering Facility: [facility] Address: [address] [place] [address] Performed By: #### 5 8410-2 ####[facility]ATORYCLIA [id number] [address] [place] WBC (Bld) [#/Vol] 8.36 10*3/uL Normal 3.70-11.00 [facility] Comment on above: Order Comment: Speci men Type: BLOOD SPECIMENOrdering Facility: [facility] Address: [address] [place] [address] Performed By: #### 5 8410-2 ####[facility]ATORYCLIA [id number] [address] OF [facility] Bacteria Spec Resp Culton Bacteria identified Respiratory culture Nom (Unsp spec) CULTURE, RESPIRATORY: Few Normal respiratory mickey present GRAM STAIN: Moderate Mixed oral mickey Few Polymorphonuclear leukocytes Few Epithelial cells Abnormal [facility] Comment on above: Performed By: #### 3 2355-0 #### [facility] CLIA [id number] [address] Bacteria identified Respiratory culture Nom (Unsp spec) CULTURE, RESPIRATORY: Few Normal respiratory mickey present GRAM STAIN: Moderate Mixed oral mickey Rare Polymorphonuclear leukocytes Few Epithelial cells Abnormal [facility] Comment on above: Performed By: #### 3 2355-0 ####[facility]ATORYCLIA [id number] [address] [place] Basic metabolic 2000 panelon 12-06-2024 Anion gap [Moles/Vol] 10 mmol/L Normal 8-15 [facility] Comment on above: Order Comment: Speci men Type: BLOOD SPECIMENOrdering Facility: [facility] Address: [address] [place] [address] Performed By: #### 2 4321-2 ####[facility]ATORYCLIA [id number] [address] [place] Calcium [Mass/Vol] 8.8 mg/dL Normal 8.5-10.2 [facility] Comment on above: Order Comment: Speci men Type: BLOOD SPECIMENOrdering Facility: [facility] Address: [address] [place] [address] Performed By: #### 2 4321-2 ####[facility]ATORYCLIA [id number] [address] [place] Chloride [Moles/Vol] 97 mmol/L Low 98-107 [facility] Comment on above: Order Comment: Speci men Type: BLOOD SPECIMENOrdering Facility: [facility] Address: [address] [place] [address] Performed By: #### 2 4321-2 ####[facility]ORATORYCLIA [id number] [place] [address] [place] CO2 [Moles/Vol] 31 mmol/L High 22-30 [facility] Comment on above: Order Comment: Speci men Type: BLOOD SPECIMENOrdering Facility: [facility] Address: [address] [place] [address] Performed By: #### 2 4321-2 ####[facility]ATORYCLIA [id number] [address] [place] Creatinine [Mass/Vol] 0.85 mg/dL Normal 0.73-1.22 [facility] Comment on above: Order Comment: Speci men Type: BLOOD SPECIMENOrdering Facility: [facility] Address: [address] [place] [address] Performed By: #### 2 4321-2 ####[facility]ORATORYCLIA [id number] [address] Creatinine and Glomerular filtration rate.predicted panel (S/P/Bld) 95 mL/min/1.73m??? Normal >=60 [facility] Comment on above: Order Comment: Speci men Type: BLOOD SPECIMENOrdering Facility: [facility] Address: [address] [place] [address] Result Comment: Sachi mated Glomerular Filtration Rate (eGFR) is calculated using the 2020 CKD-EPI creatinine equation. This equation utilizes serum creatinine, sex, and age as parameters. The creatinine assay has traceable calibration to isotope dilution-mass spectrometry. Refer to KDIGO guidelines for clinical interpretation. In patients with unstable renal function, e.g. those with acute kidney injury, the eGFR may not accurately reflect actual GFR. Performed By: #### 2 4321-2 ####[facility]ATORYCLIA [id number] [place] [address] [place] Glucose [Mass/Vol] 112 mg/dL High 74-99 [facility] Comment on above: Order Comment: Speci men Type: BLOOD SPECIMENOrdering Facility: [facility] Address: [address] [place] [address] Result Comment: The [place] [employer] (ADA) provides guidance for cutoff values for fasting glucose and random glucose. The ADA defines fasting as no caloric intake for at least 8 hours. Fasting plasma glucose results between 100 to 125 mg/dL indicate increased risk for diabetes (prediabetes). Fasting plasma glucose results greater than or equal to 126 mg/dL meet the criteria for diagnosis of diabetes. In the absence of unequivocal hyperglycemia, results should be confirmed by repeat testing. In a patient with classic symptoms of hyperglycemia or hyperglycemic crisis, random plasma glucose results greater than or equal to 200 mg/dL meet the criteria for diagnosis of diabetes. Reference: Standards of Medical Care in Diabetes 2016, [place] [employer]. Diabetes Care. 2016.39(Suppl 1). Performed By: #### 2 4321-2 ####[facility]ORATORYCLIA [id number] [place] [address] [place] Potassium [Moles/Vol] 4.0 mmol/L Normal 3.7-5.1 [facility] Comment on above: Order Comment: Speci men Type: BLOOD SPECIMENOrdering Facility: [facility] Address: [address] [place] [address] Performed By: #### 2 4321-2 ####[facility]ORATORYCLIA [id number] [place] [address] [place] Sodium [Moles/Vol] 138 mmol/L Normal 136-144 [facility] Comment on above: Order Comment: Speci men Type: BLOOD SPECIMENOrdering Facility: [facility] Address: [address] [place] [address] Performed By: #### 2 4321-2 ####[facility]ORATORYCLIA [id number] [address] STATES [facility] Urea nitrogen [Mass/Vol] 14 mg/dL Normal 9-24 [facility] Comment on above: Order Comment: Speci men Type: BLOOD SPECIMENOrdering Facility: [facility] Address: [address] [place] [address] Performed By: #### 2 4321-2 ####[facility]ORATORYCLIA [id number] [address] CBC panel Auto (Bld)on 12-06 Erythrocyte distribution width (RBC) [Ratio] 17.5 % High 11.5-15.0 [facility] Comment on above: Order Comment: Speci men Type: BLOOD SPECIMENOrdering Facility: [facility] Address: [address] [place] [address] Performed By: #### 5 8410-2 ####[facility]ORATORYCLIA [id number] [address] Hematocrit (Bld) [Volume fraction] 41.3 % Normal 39.0-51.0 [facility] Comment on above: Order Comment: Speci men Type: BLOOD SPECIMENOrdering Facility: [facility] Address: [address] [place] [address] Performed By: #### 5 8410-2 ####[facility]ORATORYCLIA [id number] [address] Hemoglobin (Bld) [Mass/Vol] 13.3 g/dL Normal 13.0-17.0 [facility] Comment on above: Order Comment: Speci men Type: BLOOD SPECIMENOrdering Facility: [facility] Address: [address] [place] [address] Performed By: #### 5 8410-2 ####[facility]ORATORYCLIA [id number] [address] STATES [facility] MCH (RBC) [Entitic mass] 26.0 pg Normal 26.0-34.0 [facility] Comment on above: Order Comment: Speci men Type: BLOOD SPECIMENOrdering Facility: [facility] Address: [address] [place] [address] Performed By: #### 5 8410-2 ####[facility]ORATORYCLIA [id number] [address] OF [facility] MCHC (RBC) [Mass/Vol] 32.2 g/dL Normal 30.5-36.0 [facility] Comment on above: Order Comment: Speci men Type: BLOOD SPECIMENOrdering Facility: [facility] Address: [address] [place] [address] Performed By: #### 5 8410-2 ####[facility]ORATORYCLIA [id number] [address] [place] MCV (RBC) [Entitic vol] 80.8 fL Normal 80.0-100.0 [facility] Comment on above: Order Comment: Speci men Type: BLOOD SPECIMENOrdering Facility: [facility] Address: [address] [place] [address] Performed By: #### 5 8410-2 ####[facility]ATORYCLIA [id number] [address] Nucleated RBC (Bld) [#/Vol] 10*3/uL Normal <0.01 [facility] Comment on above: Order Comment: Speci men Type: BLOOD SPECIMENOrdering Facility: [facility] Address: [address] [place] [address] Performed By: #### 5 8410-2 ####[facility]ATORYCLIA [id number] [address] Platelet mean volume (Bld) [Entitic vol] 9.9 fL Normal 9.0-12.7 [facility] Comment on above: Order Comment: Speci men Type: BLOOD SPECIMENOrdering Facility: [facility] Address: [address] [place] [address] Performed By: #### 5 8410-2 ####[facility]ORATORYCLIA [id number] [address] [place] Platelets (Bld) [#/Vol] 253 10*3/uL Normal 150-400 [facility] Comment on above: Order Comment: Speci men Type: BLOOD SPECIMENOrdering Facility: [facility] Address: [address] [place] [address] Performed By: #### 5 8410-2 ####[facility]ORATORYCLIA [id number] [address] OF [facility] RBC (Bld) [#/Vol] 5.11 10*6/uL Normal 4.20-6.00 [facility] Comment on above: Order Comment: Speci men Type: BLOOD SPECIMENOrdering Facility: [facility] Address: [address] [place] [address] Performed By: #### 5 8410-2 ####[facility]ORATORYCLIA [id number] [address] WBC (Bld) [#/Vol] 9.94 10*3/uL Normal 3.70-11.00 [facility] Comment on above: Order Comment: Speci men Type: BLOOD SPECIMENOrdering Facility: [facility] Address: [address] [place] [address] Performed By: #### 5 8410-2 ####[facility] LABORATORYCLIA [id number] [address] CONSULT PROGon 12-06-2024 CONSULT PROG HNO ID: [id number] Author: HELENE LAZO RPh Service: Pharmacy Author Type: Pharmacist Type: Consult Progress Note Filed: 12/06/2024 12:04 Note Text: PHARMACY VANCOMYCIN DOSING NOTE Patient Name: Mitul Oakes Admission Date: 12/03/2024 Date of Consult: 12/06/2024 Time of Consult: 11:59 AM Indication: Bone and joint infection Goal Range: 15-20 mcg/mL RECOMMENDATIONS/PLAN: Pharmacy consulted for vancomycin dosing for Mitul Oakes, a 69 year old male. 1. Patient is currently ordered Vancomycin dosing per pharmacy placeholder. Today is day 1 of therapy. 2. No vancomycin level has been drawn for this dosing regimen. 3. Will schedule vancomycin to 1.75 g with a dosing interval of q12h. Patient is at risk for accumulation given Body mass index is 38.35 kg/m?. 4. The next vancomycin level has been ordered for 12/08/24 @1130 prior to fifth dose. (Completed) We will follow patient renal function, vancomycin levels and doses with you during the course of therapy. Additional recommendations will appear in follow up notes. If you have any questions, please contact Helene Lazo PharmD via [employer]. Age: [age] year old Allergies: ALLERGIES Allergen Reactions Heparin Other: See Comments HIIT [facility]. 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, caused right BKA Amitryptyline [Justin* Itching Per patient Last 3 Encounter Wt Readings: Date: Wt: 12/03/2024 124.7 kg (275 lb) 07/02/2024 124.7 kg (275 lb) 05/23/2024 126.4 kg (278 lb 10.6 oz) Last 1 Encounter Ht Readings: Date: Ht: 12/03/2024 180.3 cm (5' 11") CrCl: 111.9 mL/min Temp (24hrs), Av.6 ?C (97.9 ?F), Min:36.3 ?C (97.3 ?F), Max:36.8 ?C (98.2 ?F) - Current Temp: 36.7 ?C (98.1 ?F) Labs BUN (mg/dL) Date Value 12/06/2024 14 12/05/2024 14 12/04/2024 10 Creatinine (mg/dL) Date Value 12/06/2024 0.85 12/05/2024 0.90 12/04/2024 0.86 WBC (k/uL) Date Value 12/06/2024 9.94 12/05/2024 14.05 (H) 12/04/2024 9.75 Vancomycin Levels: Vancomycin (ug/mL) Date/Time Value 06/06/2024 1355 14.8 06/02/2024 1008 16.9 Helene Lazo [facility] NURSING PROGon 12-06-2024 NURSING PROG HNO ID: [id number] Author: RAMU TURK, RN Service: Nursing Author Type: Registered Nurse Type: Nursing Progress Note Filed: 12/06/2024 22:03 Note Text: Pt c/o anxiety and requests "something to help anxiety and make me sleep". Page placed to security professional 2124- pt refusing to take ordered melatonin for sleep, stating it "does nothing" and requests something that actually works." Page placed to security professional 2129- pt states he takes trazodone at his facility and not sure why it was never ordered, physician made aware. 2201- Pt agitated and insisting to speak with physician regarding ordered medications Normal [facility] Basic metabolic 2000 panelon 12-05-2024 Anion gap [Moles/Vol] 7 mmol/L Low 8-15 [facility] Comment on above: Order Comment: Speci men Type: BLOOD SPECIMENOrdering Facility: [facility] Address: [address] [place] [address] Performed By: #### 2 4321-2 ####[facility] LABORATORYCLIA [id number] [place] [address] [place] Calcium [Mass/Vol] 8.8 mg/dL Normal 8.5-10.2 [facility] Comment on above: Order Comment: Payali lorena Type: BLOOD SPECIMENOrdering Facility: [facility] Address: [address] [place] [address] Performed By: #### 2 4321-2 ####[facility] LABORATORYCLIA [id number] [place] [address] [place] Chloride [Moles/Vol] 99 mmol/L Normal 98-107 [facility] Comment on above: Order Comment: Speci men Type: BLOOD SPECIMENOrdering Facility: [facility] Address: [address] [place] [address] Performed By: #### 2 4321-2 ####[facility] LABORATORYCLIA [id number] [place] [address] [place] CO2 [Moles/Vol] 29 mmol/L Normal 22-30 [facility] Comment on above: Order Comment: Speci lorena Type: BLOOD SPECIMENOrdering Facility: [facility] Address: [address] [place] [address] Performed By: #### 2 4321-2 ####[facility] LABORATORYCLIA [id number] [address] STATES OF [facility] Creatinine [Mass/Vol] 0.90 mg/dL Normal 0.73-1.22 [facility] Comment on above: Order Comment: Speci men Type: BLOOD SPECIMENOrdering Facility: [facility] Address: [address] [place] [address] Performed By: #### 2 4321-2 ####[facility] LABORATORYCLIA [id number] [address] Creatinine and Glomerular filtration rate.predicted panel (S/P/Bld) 93 mL/min/1.73m??? Normal >=60 [facility] Comment on above: Order Comment: Speci men Type: BLOOD SPECIMENOrdering Facility: [facility] Address: [address] [place] [address] Result Comment: Sachi mated Glomerular Filtration Rate (eGFR) is calculated using the 2020 CKD-EPI creatinine equation. This equation utilizes serum creatinine, sex, and age as parameters. The creatinine assay has traceable calibration to isotope dilution-mass spectrometry. Refer to KDIGO guidelines for clinical interpretation. In patients with unstable renal function, e.g. those with acute kidney injury, the eGFR may not accurately reflect actual GFR. Performed By: #### 2 4321-2 ####[facility] LABORATORYCLIA [id number] [address] [place] Glucose [Mass/Vol] 103 mg/dL High 74-99 [facility] Comment on above: Order Comment: Raudel carrillo Type: BLOOD SPECIMENOrdering Facility: [facility] Address: [address] [place] [address] Result Comment: The [place] [employer] (ADA) provides guidance for cutoff values for fasting glucose and random glucose. The ADA defines fasting as no caloric intake for at least 8 hours. Fasting plasma glucose results between 100 to 125 mg/dL indicate increased risk for diabetes (prediabetes). Fasting plasma glucose results greater than or equal to 126 mg/dL meet the criteria for diagnosis of diabetes. In the absence of unequivocal hyperglycemia, results should be confirmed by repeat testing. In a patient with classic symptoms of hyperglycemia or hyperglycemic crisis, random plasma glucose results greater than or equal to 200 mg/dL meet the criteria for diagnosis of diabetes. Reference: Standards of Medical Care in Diabetes 2016, [place] [employer]. Diabetes Care. 2016.39(Suppl 1). Performed By: #### 2 4321-2 ####[facility] LABORATORYCLIA [id number] [address] STATES OF [facility] Potassium [Moles/Vol] 4.3 mmol/L Normal 3.7-5.1 [facility] Comment on above: Order Comment: Speci men Type: BLOOD SPECIMENOrdering Facility: [facility] Address: [address] [place] [address] Performed By: #### 2 4321-2 ####[facility] [id number] [address] Sodium [Moles/Vol] 135 mmol/L Low 136-144 [facility] Comment on above: Order Comment: Speci men Type: BLOOD SPECIMENOrdering Facility: [facility] Address: [address] [place] [address] Performed By: #### 2 4321-2 ####[facility]ORATORYCLIA [id number] [address] Urea nitrogen [Mass/Vol] 14 mg/dL Normal 9-24 [facility] Comment on above: Order Comment: Speci men Type: BLOOD SPECIMENOrdering Facility: [facility] Address: [address] [place] [address] Performed By: #### 2 4321-2 ####[facility] LABORATORYCLIA [id number] [address] CBC panel Auto (Bld)on 12-05 Erythrocyte distribution width (RBC) [Ratio] 17.6 % High 11.5-15.0 [facility] Comment on above: Order Comment: Speci men Type: BLOOD SPECIMENOrdering Facility: [facility] Address: [address] [place] [address] Performed By: #### 5 8410-2 ####[facility] LABORATORYCLIA [id number] [address] Hematocrit (Bld) [Volume fraction] 41.5 % Normal 39.0-51.0 [facility] Comment on above: Order Comment: Speci men Type: BLOOD SPECIMENOrdering Facility: [facility] Address: [address] [place] [address] Performed By: #### 5 8410-2 ####[facility] LABORATORYCLIA [id number] [address] OF [facility] Hemoglobin (Bld) [Mass/Vol] 13.4 g/dL Normal 13.0-17.0 [facility] Comment on above: Order Comment: Speci men Type: BLOOD SPECIMENOrdering Facility: [facility] Address: [address] [place] [address] Performed By: #### 5 8410-2 ####[facility]ORATORYCLIA [id number] [address] MCH (RBC) [Entitic mass] 26.1 pg Normal 26.0-34.0 [facility] Comment on above: Order Comment: Speci men Type: BLOOD SPECIMENOrdering Facility: [facility] Address: [address] [place] [address] Performed By: #### 5 8410-2 ####[facility]ORATORYCLIA [id number] [address] [place] MCHC (RBC) [Mass/Vol] 32.3 g/dL Normal 30.5-36.0 [facility] Comment on above: Order Comment: Speci men Type: BLOOD SPECIMENOrdering Facility: [facility] Address: [address] [place] [address] Performed By: #### 5 8410-2 ####[facility] LABORATORYCLIA [id number] [address] MCV (RBC) [Entitic vol] 80.9 fL Normal 80.0-100.0 [facility] Comment on above: Order Comment: Speci men Type: BLOOD SPECIMENOrdering Facility: [facility] Address: [address] [place] [address] Performed By: #### 5 8410-2 ####[facility] LABORATORYCLIA [id number] [address] [place] Nucleated RBC (Bld) [#/Vol] 10*3/uL Normal <0.01 [facility] Comment on above: Order Comment: Speci men Type: BLOOD SPECIMENOrdering Facility: [facility] Address: [address] [place] [address] Performed By: #### 5 8410-2 ####[facility] LABORATORYCLIA [id number] [address] [place] Platelet mean volume (Bld) [Entitic vol] 9.9 fL Normal 9.0-12.7 [facility] Comment on above: Order Comment: Speci men Type: BLOOD SPECIMENOrdering Facility: [facility] Address: [address] [place] [address] Performed By: #### 5 8410-2 ####[facility]ORATORYCLIA [id number] [address] [place] Platelets (Bld) [#/Vol] 270 10*3/uL Normal 150-400 [facility] Comment on above: Order Comment: Speci men Type: BLOOD SPECIMENOrdering Facility: [facility] Address: [address] [place] [address] Performed By: #### 5 8410-2 ####[facility]ORATORYCLIA [id number] [address] [place] RBC (Bld) [#/Vol] 5.13 10*6/uL Normal 4.20-6.00 [facility] Comment on above: Order Comment: Speci men Type: BLOOD SPECIMENOrdering Facility: [facility] Address: [address] [place] [address] Performed By: #### 5 8410-2 ####[facility] LABORATORYCLIA [id number] [place] [address] [facility] WBC (Bld) [#/Vol] 14.05 10*3/uL High 3.70-11.00 [facility] Comment on above: Order Comment: Speci men Type: BLOOD SPECIMENOrdering Facility: [facility] Address: [facility] [place] [address] Performed By: #### 5 8410-2 ####[facility] LABORATORYCLIA [id number] [place] [address] [facility] CONSULT PROGon 12-05-2024 CONSULT PROG HNO ID: [id number] Author: ANY GRANT DO Service: Infectious Disease Author Type: Physician Type: Consult Progress Note Filed: 12/05/2024 12:35 Note Text: PROGRESS NOTE INFECTIOUS DISEASE Some elements of the history, review of systems, and medical decision-making may be copied from my previous notes, however, all information has been reviewed and verified by me today. SERVICE DATE: December 05, 2024 SERVICE TIME: 10:14 AM Following for parainfluenza 3 viral infection, pneumonia. Reviewed available chart/notes/labs/micr obiological data and imaging. Subjective Interval Events: Overall stable and transferred to medicine service. Reportedly getting IV vancom[facility] and meropenem for L [facility] - details unknown. Tentatively stop date ~12-24-2024 but will need to verify. Still with moderate oxygen requirement. Medications: Current Facility-Administered Medications Medication Dose Route Frequency NaCl 0.9% iv flush bag 20 mL INTRAVENOUS PRN pregabalin 200 mg cap(s) (LYRICA) 200 mg ORAL TID carvedilol 25 mg tab(s) (COREG) 25 mg ORAL BID w MEALS ezetimibe 10 mg tab(s) (ZETIA) 10 mg ORAL DAILY isosorbide mononitrate ER 30 mg tab(s) (IMDUR) 30 mg ORAL DAILY spironolactone 12.5 mg tab(s) (ALDACTONE) 12.5 mg ORAL DAILY clopidogrel 75 mg tab(s) (PLAVIX) 75 mg ORAL DAILY rivaroxaban 2.5 mg tab(s) (XARELTO) 2.5 mg ORAL BID atorvastatin 80 mg tab(s) (LIPITOR) 80 mg ORAL DAILY insulin glargine 17 Units pen (long acting) 17 Units SUBCUTANEOUS BID dextrose 15 gram/32 mL 15 g (TRUEPLUS) 15 g ORAL PRN Or glucagon 1 mg injection 1 mg INTRAMUSCULAR PRN Or dextrose 10% iv bolus 12.5 g INTRAVENOUS PRN insulin lispro injection (rapid acting) (ADMElog) SUBCUTANEOUS w MEALS albuterol 2.5 mg /3 mL (0.083 %) 2.5 mg (PROVENTIL) 2.5 mg INHALATION q 6 H PRN predniSONE 40 mg tab(s) (DELTASONE) 40 mg ORAL DAILY buPROPion XL 300 mg tab(s) (WELLBUTRIN XL) 300 mg ORAL DAILY busPIRone 7.5 mg tab(s) (BUSPAR) 7.5 mg ORAL BID iv contrast (radiology procedure) INTRAVENOUS DIRECTED PRN levoFLOXacin 500 mg tab(s) (LEVAQUIN) 500 mg ORAL DAILY (6 AM) benzocaine-menthol 1 lozenge (CEPACOL) 1 lozenge MUCOUS MEMBRANE (TOPICAL MOUTH AND THROAT) q 2 H PRN ipratropium-albuterol 3 mL nebulizer solution (DUONEB) 3 mL INHALATION q 4 H Objective Physical Exam: BP 100/57 Pulse 95 Temp 36.8 ?C (98.2 ?F) (Axillary) Resp 26 Ht 180.3 cm (5' 11") Wt 124.7 kg (275 lb) SpO2 91% BMI 38.35 kg/m? Physical Exam Constitutional: Appearance: He is obese. He is ill-appearing (mild). HENT: Head: Normocephalic and atraumatic. Nose: Nose normal. Mouth/Throat: Pharynx: Oropharynx is clear. Eyes: Conjunctiva/sclera: Conjunctivae normal. Cardiovascular: Rate and Rhythm: Normal rate. Pulmonary: Effort: Respiratory distress present. Breath sounds: Rhonchi present. Abdominal: General: There is no distension. Palpations: Abdomen is soft. Musculoskeletal: General: Deformity (S/P R hallux amputation, L 2nd toe intact generally) present. Skin: General: Skin is warm and dry. Neurological: General: No focal deficit present. Mental Status: Mental status is at baseline. Psychiatric: Mood and Affect: Mood normal. Thought Content: Thought content normal. Lab data: WBC (k/uL) Date Value 12/05/2024 14.05 12/04/2024 9.75 12/03/2024 18.73 07/02/2024 9.45 06/06/2024 10.37 Creatinine (mg/dL) Date Value 12/05/2024 0.90 12/04/2024 0.86 12/03/2024 1.01 07/02/2024 1.14 06/06/2024 1.03 Lab Results Component Value Date NEUTP 85.7 12/03/2024 ABSNEUT 16.04 12/03/2024 LYMPHP 5.8 12/03/2024 ABSLYMPH 1.08 12/03/2024 ABSMONO 1.20 12/03/2024 EODINP 0.8 12/03/2024 ABSEOSIN 0.15 12/03/2024 BASOP 0.7 12/03/2024 ABSBASO 0.14 12/03/2024 Lab Results Component Value Date PLT 270 12/05/2024 HB 13.4 12/05/2024 HCT 41.5 12/05/2024 ALB 3.5 12/03/2024 CA 8.8 12/05/2024 TBILI 0.6 12/03/2024 ALKPHOS 167 12/03/2024 AST 19 12/03/2024 GLUC 103 12/05/2024 BUN 14 12/05/2024 NA 135 12/05/2024 K 4.3 12/05/2024 CHLOR 99 12/05/2024 CO2 29 12/05/2024 ANION 7 12/05/2024 ALT 18 12/03/2024 Sed Rate, Westergren (mm/hr) Date Value 05/24/2024 15 CRP (mg/dL) Date Value 05/23/2024 1.3 Vancomycin (ug/mL) Date Value 06/06/2024 14.8 06/02/2024 16.9 05/31/2024 21.9 05/28/2024 16.5 05/26/2024 14.3 Estimated Creatinine Clearance: 105.7 mL/min (based on SCr of 0.9 mg/dL). Microbiology data: Positive Micro-30 Days Procedure Component Value Units Date/Time Expanded Respiratory Pathogen Panel by PCR, Expedited [[id number]] (Abnormal) Collected: 12/03/24 1717 Order Status: Completed Specimen: Swab from Nasopharynx Updated: 12/04/24 1241 SARS-CoV-2 (Agent of COVID-19) RNA Not detected Influenza A RNA Not detected Influenza B RNA Not detected Respiratory syncytial virus (RSV) RNA Not detected Human metapneumovirus (hMPV) RNA Not de (more content not included)... Normal [facility] Gas and Carbon monoxide pane l (BldV)on 12-05-2024 Base excess Calc (BldV) [Moles/Vol] 7 mmol/L High 0-2 [facility] Comment on above: Order Comment: Speci men Type: VENOUS BLOOD SPECIMENOrdering Facility: [facility] Address: [address] [place] [address] Performed By: #### 2 4344-4 ####[facility] LABORATORYCLIA [id number] [address] STATES OF [facility] Body temperature 98.24 [degF] Normal [facility] Comment on above: Order Comment: Speci men Type: VENOUS BLOOD SPECIMENOrdering Facility: [facility] Address: [address] [place] [address] Performed By: #### 2 4344-4 ####[facility]ORATORYCLIA [id number] [address] [place] Calcium.ionized (BldV) [Mass/Vol] 1.18 mmol/L Normal 1.08-1.30 [facility] Comment on above: Order Comment: Speci men Type: VENOUS BLOOD SPECIMENOrdering Facility: [facility] Address: [address] [place] [address] Performed By: #### 2 4344-4 ####[facility] LABORATORYCLIA [id number] [address] STATES OF [facility] Calcium.ionized adjusted to pH 7.4 (BldA) [Moles/Vol] 1.15 mmol/L Normal 1.08-1.30 [facility] Comment on above: Order Comment: Speci men Type: VENOUS BLOOD SPECIMENOrdering Facility: [facility] Address: [address] [place] [address] Performed By: #### 2 4344-4 ####[facility]ORATORYCLIA [id number] [address] [place] Carboxyhemoglobin (BldV) [Mass fraction] 1.8 % Normal 0.0-2.0 [facility] Comment on above: Order Comment: Speci men Type: VENOUS BLOOD SPECIMENOrdering Facility: [facility] Address: [address] [place] [address] Result Comment: Carb oxyhemoglobin Reference Range for Smokers: 2.0-8.0% Performed By: #### 2 4344-4 ####[facility]ORATORYCLIA [id number] [address] STATES OF [facility] Chloride [Moles/Vol] 99 mmol/L Normal 97-105 [facility] Comment on above: Order Comment: Speci men Type: VENOUS BLOOD SPECIMENOrdering Facility: [facility] Address: [address] [place] [address] Performed By: #### 2 4344-4 ####[facility]ORATORYCLIA [id number] [address] [place] CO2 (BldV) [Partial pressure] 60 mm[Hg] High 42-55 [facility] Comment on above: Order Comment: Speci men Type: VENOUS BLOOD SPECIMENOrdering Facility: [facility] Address: [address] [place] [address] Performed By: #### 2 4344-4 ####[facility]ORATORYCLIA [id number] [address] [place] CO2 adjusted to patient's actual temperature (BldV) [Partial pressure] 59 mmHg High 42-55 [facility] Comment on above: Order Comment: Speci men Type: VENOUS BLOOD SPECIMENOrdering Facility: [facility] Address: [address] [place] [address] Performed By: #### 2 4344-4 ####[facility]ORATORYCLIA [id number] [place] [address] [place] Glucose [Mass/Vol] 129 mg/dL High 60-105 [facility] Comment on above: Order Comment: Speci men Type: VENOUS BLOOD SPECIMENOrdering Facility: [facility] Address: [address] [place] [address] Performed By: #### 2 4344-4 ####[facility]ORATORYCLIA [id number] [place] [address] [place] HCO3 (Bld) [Moles/Vol] 33 mmol/L High 24-28 [facility] Comment on above: Order Comment: Speci men Type: VENOUS BLOOD SPECIMENOrdering Facility: [facility] Address: [address] [place] [address] Performed By: #### 2 4344-4 ####[facility]ORATORYCLIA [id number] [place] [address] [place] Hematocrit (Bld) [Volume fraction] 42.9 % Normal 39.0-51.0 [facility] Comment on above: Order Comment: Speci men Type: VENOUS BLOOD SPECIMENOrdering Facility: [facility] Address: [address] [place] [address] Performed By: #### 2 4344-4 ####[facility]ORATORYCLIA [id number] [place] [address] [place] Hemoglobin (Bld) [Mass/Vol] 14.0 g/dL Normal 13.0-17.0 [facility] Comment on above: Order Comment: Speci men Type: VENOUS BLOOD SPECIMENOrdering Facility: [facility] Address: [address] [place] [address] Performed By: #### 2 4344-4 ####[facility] LABORATORYCLIA [id number] [place] [address] [place] Lactate [Moles/Vol] 1.1 mmol/L Normal 0.5-2.2 [facility] Comment on above: Order Comment: Speci men Type: VENOUS BLOOD SPECIMENOrdering Facility: [facility] Address: [address] [place] [address] Performed By: #### 2 4344-4 ####[facility]ORYCLIA [id number] [address] [place] LITERS 6 Liters/min Normal [facility] Comment on above: Order Comment: Speci men Type: VENOUS BLOOD SPECIMENOrdering Facility: [facility] Address: [address] [place] [address] Performed By: #### 2 4344-4 ####[facility]ORYCLIA [id number] [address] [place] Methemoglobin (Bld) [Mass fraction] 0.7 % Normal 0.0-1.5 [facility] Comment on above: Order Comment: Speci men Type: VENOUS BLOOD SPECIMENOrdering Facility: [facility] Address: [address] [place] [address] Performed By: #### 2 4344-4 ####[facility]ATORYCLIA [id number] [address] O2 THERAPY NC = Nasal Cannula Normal [facility] Comment on above: Order Comment: Speci men Type: VENOUS BLOOD SPECIMENOrdering Facility: [facility] Address: [address] [place] [address] Performed By: #### 2 4344-4 ####[facility]ORYCLIA [id number] [address] [place] Oxygen (BldV) [Partial pressure] 55 mm[Hg] High 35-45 [facility] Comment on above: Order Comment: Speci men Type: VENOUS BLOOD SPECIMENOrdering Facility: [facility] Address: [address] [place] [address] Performed By: #### 2 4344-4 ####[facility]ATORYCLIA [id number] [address] Oxygen adjusted to patient's actual temperature (BldV) [Partial pressure] 54 mmHg High 35-45 [facility] Comment on above: Order Comment: Speci men Type: VENOUS BLOOD SPECIMENOrdering Facility: [facility] Address: [address] [place] [address] Performed By: #### 2 4344-4 ####[facility]ATORYCLIA [id number] [address] Oxygen saturation in Venous blood 85 % Normal 60-85 [facility] Comment on above: Order Comment: Speci men Type: VENOUS BLOOD SPECIMENOrdering Facility: [facility] Address: [address] [place] [address] Performed By: #### 2 4344-4 ####[facility]ATORYCLIA [id number] [address] [place] Oxyhemoglobin (BldV) [Mass fraction] 83 % Normal 60-85 [facility] Comment on above: Order Comment: Speci men Type: VENOUS BLOOD SPECIMENOrdering Facility: [facility] Address: [address] [place] [address] Performed By: #### 2 4344-4 ####[facility]ORATORYCLIA [id number] [address] [place] pH (BldV) 7.37 [pH] Normal 7.32-7.42 [facility] Comment on above: Order Comment: Speci men Type: VENOUS BLOOD SPECIMENOrdering Facility: [facility] Address: [address] [place] [address] Performed By: #### 2 4344-4 ####[facility]ORATORYCLIA [id number] [address] pH adjusted to patient's actual temperature (BldV) 7.37 Normal 7.32-7.42 [facility] Comment on above: Order Comment: Speci men Type: VENOUS BLOOD SPECIMENOrdering Facility: [facility] Address: [address] [place] [address] Performed By: #### 2 4344-4 ####[facility] LABORATORYCLIA [id number] [address] [place] Potassium [Moles/Vol] 4.5 mmol/L Normal 3.5-5.0 [facility] Comment on above: Order Comment: Speci men Type: VENOUS BLOOD SPECIMENOrdering Facility: [facility] Address: [address] [place] [address] Performed By: #### 2 4344-4 ####[facility]ORATORYCLIA [id number] [address] [place] Sodium [Moles/Vol] 138 mmol/L Normal 136-144 [facility] Comment on above: Order Comment: Speci men Type: VENOUS BLOOD SPECIMENOrdering Facility: [facility] Address: [address] [place] [address] Performed By: #### 2 4344-4 ####[facility] LABORATORYCLIA [id number] [address] [place] Base excess Calc (BldV) [Moles/Vol] 8 mmol/L High 0-2 [facility] Comment on above: Order Comment: Speci men Type: VENOUS BLOOD SPECIMENOrdering Facility: [facility] Address: [address] [place] [address] Performed By: #### 2 4344-4 ####[facility] LABORATORYCLIA [id number] [address] Body temperature 98.6 [degF] Normal [facility] Comment on above: Order Comment: Speci men Type: VENOUS BLOOD SPECIMENOrdering Facility: [facility] Address: [address] [place] [address] Performed By: #### 2 4344-4 ####[facility] LABORATORYCLIA [id number] [address] Calcium.ionized (BldV) [Mass/Vol] 1.12 mmol/L Normal 1.08-1.30 [facility] Comment on above: Order Comment: Speci men Type: VENOUS BLOOD SPECIMENOrdering Facility: [facility] Address: [address] [place] [address] Performed By: #### 2 4344-4 ####[facility] LABORATORYCLIA [id number] [address] Calcium.ionized adjusted to pH 7.4 (BldA) [Moles/Vol] 1.10 mmol/L Normal 1.08-1.30 [facility] Comment on above: Order Comment: Speci men Type: VENOUS BLOOD SPECIMENOrdering Facility: [facility] Address: [address] [place] [address] Performed By: #### 2 4344-4 ####[facility] LABORATORYCLIA [id number] [address] [place] Carboxyhemoglobin (BldV) [Mass fraction] 1.4 % Normal 0.0-2.0 [facility] Comment on above: Order Comment: Speci men Type: VENOUS BLOOD SPECIMENOrdering Facility: [facility] Address: [address] [place] [address] Result Comment: Carb oxyhemoglobin Reference Range for Smokers: 2.0-8.0% Performed By: #### 2 4344-4 ####[facility] LABORATORYCLIA [id number] [address] [place] Chloride [Moles/Vol] 104 mmol/L Normal 97-105 [facility] Comment on above: Order Comment: Speci men Type: VENOUS BLOOD SPECIMENOrdering Facility: [facility] Address: [address] [place] [address] Performed By: #### 2 4344-4 ####[facility] LABORATORYCLIA [id number] [address] [place] CO2 (BldV) [Partial pressure] 62 mm[Hg] High 42-55 [facility] Comment on above: Order Comment: Speci men Type: VENOUS BLOOD SPECIMENOrdering Facility: [facility] Address: [address] [place] [address] Performed By: #### 2 4344-4 ####[facility] LABORATORYCLIA [id number] [address] [place] Glucose [Mass/Vol] 110 mg/dL High 60-105 [facility] Comment on above: Order Comment: Speci men Type: VENOUS BLOOD SPECIMENOrdering Facility: [facility] Address: [address] [place] [address] Performed By: #### 2 4344-4 ####[facility]ATORYCLIA [id number] [address] [place] HCO3 (Bld) [Moles/Vol] 35 mmol/L High 24-28 [facility] Comment on above: Order Comment: Speci men Type: VENOUS BLOOD SPECIMENOrdering Facility: [facility] Address: [address] [place] [address] Performed By: #### 2 4344-4 ####[facility]ORATORYCLIA [id number] [address] [place] Hematocrit (Bld) [Volume fraction] 42.4 % Normal 39.0-51.0 [facility] Comment on above: Order Comment: Speci men Type: VENOUS BLOOD SPECIMENOrdering Facility: [facility] Address: [address] [place] [address] Performed By: #### 2 4344-4 ####[facility]ORATORYCLIA [id number] [address] [place] Hemoglobin (Bld) [Mass/Vol] 13.8 g/dL Normal 13.0-17.0 [facility] Comment on above: Order Comment: Speci men Type: VENOUS BLOOD SPECIMENOrdering Facility: [facility] Address: [address] [place] [address] Performed By: #### 2 4344-4 ####[facility]ORATORYCLIA [id number] [address] [place] Lactate [Moles/Vol] 1.2 mmol/L Normal 0.5-2.2 [facility] Comment on above: Order Comment: Speci men Type: VENOUS BLOOD SPECIMENOrdering Facility: [facility] Address: [address] [place] [address] Performed By: #### 2 4344-4 ####[facility]ATORYCLIA [id number] [address] [place] Methemoglobin (Bld) [Mass fraction] 0.4 % Normal 0.0-1.5 [facility] Comment on above: Order Comment: Speci men Type: VENOUS BLOOD SPECIMENOrdering Facility: [facility] Address: [address] [place] [address] Performed By: #### 2 4344-4 ####[facility]ORATORYCLIA [id number] [address] [place] O2 THERAPY NC = Nasal Cannula Normal [facility] Comment on above: Order Comment: Speci men Type: VENOUS BLOOD SPECIMENOrdering Facility: [facility] Address: [address] [place] [address] Performed By: #### 2 4344-4 ####[facility] LABORATORYCLIA [id number] [address] [place] Oxygen (BldV) [Partial pressure] 60 mm[Hg] High 35-45 [facility] Comment on above: Order Comment: Speci men Type: VENOUS BLOOD SPECIMENOrdering Facility: [facility] Address: [address] [place] [address] Performed By: #### 2 4344-4 ####[facility]ORATORYCLIA [id number] [place] [address] [place] Oxygen saturation in Venous blood 88 % High 60-85 [facility] Comment on above: Order Comment: Speci men Type: VENOUS BLOOD SPECIMENOrdering Facility: [facility] Address: [address] [place] [address] Performed By: #### 2 4344-4 ####[facility]ATORYCLIA [id number] [place] [address] [place] Oxyhemoglobin (BldV) [Mass fraction] 87 % High 60-85 [facility] Comment on above: Order Comment: Speci men Type: VENOUS BLOOD SPECIMENOrdering Facility: [facility] Address: [address] [place] [address] Performed By: #### 2 4344-4 ####[facility]ATORYCLIA [id number] [place] [address] [place] pH (BldV) 7.36 [pH] Normal 7.32-7.42 [facility] Comment on above: Order Comment: Speci men Type: VENOUS BLOOD SPECIMENOrdering Facility: [facility] Address: [address] [place] [address] Performed By: #### 2 4344-4 ####[facility]ORATORYCLIA [id number] [address] Potassium [Moles/Vol] 4.1 mmol/L Normal 3.5-5.0 [facility] Comment on above: Order Comment: Speci men Type: VENOUS BLOOD SPECIMENOrdering Facility: [facility] Address: [address] [place] [address] Performed By: #### 2 4344-4 ####[facility]ORATORYCLIA [id number] [address] Sodium [Moles/Vol] 132 mmol/L Low 136-144 [facility] Comment on above: Order Comment: Speci men Type: VENOUS BLOOD SPECIMENOrdering Facility: [facility] Address: [address] [place] [address] Performed By: #### 2 4344-4 ####[facility] LABORATORYCLIA [id number] [address] HISTORY PHYSICALon HISTORY PHYSICAL HNO ID: [id number] Author: AUGUSTO LAKE MD Service: Hospital [facility] at Home Author Type: Resident Type: H&P Filed: 12/05/2024 16:28 Note Text: Attestation signed by Augusto Lake MD at 12/05/2024 4:28 PM Attending Note I personally saw and examined the patient. I reviewed the resident's note. I agree with the resident's assessment and plan unless otherwise noted. Patient had increased oxygen requirement overnight from 4 to 6 L without any new symptoms. Clinical exam consistent with expiratory wheeze and a lot of conducting sounds due to secretions. No new change on repeat chest x-ray. Continue antibiotic per ID recommendations. Patient is currently on levofloxacin for pneumonia and continue steroids for COPD exacerbation.Optimize respiratory care including incentive spirometry and Acapella. Agree with Mucinex. Wean off oxygen, goal 88 to 92%. Obtain records from [place] for recent treatment of diabetic foot infection/OM. At [facility], patient was on ertapenem and vancomycin and based on the verbal report the end of treatment was 12/24/2024. Signature: Augusto Lake MD Date: 12/05/2024 Time: 4:22 PM [facility] [place] [facility] PATIENT NAME: Mitul Oakes ADMITTED FOR: Acute respiratory failure with hypoxia (HCC) DATE: 12/03/2024 Subjective HPI Mr. 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 He had one episode of greenish yellow sputum emesis. He was saturating 84% upon EMS arrival and was placed on 4L N/C. Got 1 dose of Duo neb and solumedrol by EMS. CPAP was attempted by EMS but patient did not tolerate. Was Vancomycin and Ertapenem for Left foot and toe infection. Changed Ertapenem to Meropenem for pseudomonas coverage. In ED, Wbc 18.7, absolute neutrophil count 16.04. CXR - small right pleural effusion with adjacent atelectasis. Review of Systems Constitutional: Positive for activity change, appetite change and fatigue. HENT: Positive for congestion. Eyes: Negative. Respiratory: Positive for cough, shortness of breath and wheezing. Skin: Positive for wound. Allergic/Immunologic: Negative. Neurological: Negative. Hematological: Negative. Psychiatric/Behaviora l: Negative. All other systems reviewed and are negative. No past medical history on file. PAST SURGICAL HISTORY Procedure Laterality Date APPENDECTOMY HX 83 COLSC FLX W/RMVL OF TUMOR POLYP LESION SNARE TQ 06/21/2015 FAMILY HISTORY Problem Relation Age of Onset Cancer Mother skin Diabetes Mother Diabetes Father Stroke Brother Hypertension Father Social History Tobacco Use Smoking status: Former Current packs/day: 3.00 Average packs/day: 3.0 packs/day for 49.6 years (148.7 ttl pk-yrs) Types: Cigarettes Start date: 05/10/1975 Passive exposure: Never No current facility-administered medications on file prior to encounter. Current Outpatient Medications on File Prior to Encounter Medication Sig traZODone (DESYREL) 50 mg tablet Take 50 mg by mouth daily at bedtime. (Patient not taking: Reported on 10/14/2024) albuterol sulfate (PROAIR DIGIHALER) 90 mcg/actuation aebs Inhale 2 Puffs as instructed every 4 hours as needed for wheezing/shortness of breath. ezetimibe (ZETIA) 10 mg tablet Take 10 mg by mouth once daily. clopidogrel (PLAVIX) 75 mg tablet Take 75 mg by mouth once daily. busPIRone (BUSPAR) 7.5 mg tablet Take 7.5 mg by mouth two times a day. potassium chloride SR (MICRO-K) 10 mEq CR capsule Take 10 mEq by mouth once daily. pantoprazole DR (PROTONIX) 40 mg tablet Take 40 mg by mouth two times a day. (Patient not taking: Reported on 09/16/2024) sodium chlor-hypochlorous acid (VASHE) 0.033 % irsl Irrigate as instructed as directed. With each wound care dressing change ondansetron (ZOFRAN) 4 mg tablet Take 4 mg by mouth every 8 hours as needed for nausea/vomiting. vancomycin 500 mg/100 mL IVPB Inject 500 mg intravenously every 12 hours. Per family - not on Aug but should go through 06/27/2024 (Patient not taking: Reported on 07/10/2024) oxyCODONE IR (ROXICODONE) 30 mg immediate release tablet Take 30 mg by mouth every 6 hours as needed for pain. aspirin, enteric coated (ASPIRIN, ENTERIC COATED) 81 mg EC tablet Take 81 mg by mouth once daily. atorvastatin (LIPITOR) 80 mg tablet Take 1 tablet by mouth once daily. yawznfniln-zumanvfr-d ormoterol (BREZTRI) 160-9-4.8 mcg/actuation HFA aerosol inhaler Inhale 2 Puffs as instructed two times (more content not included)... Normal [facility] THERAPY NTon 12-05-2024 THERAPY NT HNO ID: [id number] Author: SAVANAH GAR, PT Service: Physical Therapy Author Type: Physical Therapist Type: Therapy (PT/OT/Speech/Resp) Filed: 12/05/2024 12:37 Note Text: Physical Therapy Evaluation Summary SERVICE DATE: 12/05/2024 SERVICE TIME: 1125 to 1140 ROOM: [place] [address] PT 6 Clicks Score: 12 DISCHARGE RECOMMENDATIONS Subacute/SNF Recommended Discharge Disposition Due to: Functional deficits requiring ongoing therapy service prior to discharge home., Patient requires daily (5x/week) skilled therapy at next level of care. ASSESSMENT Response to Therapy Interventions: Good Participation in Activities Patient from SNF, working on prosthetic training. Prosthetic is not currently at the hospital. Patient remains below baseline. Rec SNF. PRECAUTIONS Bed/Chair Alarm, Fall Risk CURRENT HOSPITAL COURSE SOB, COPD, parainfluenza Relevant Past Medical History: R BKA, DM, neuropathy, DVT, COPD HOME LIVING Patient Lives With: Facility Care (Altercare x 4 months per patient) Assistance Available: 24-Hour Entry To Home: No Stairs PRIOR FUNCTIONAL LEVEL Required Assistance Assistance Required With: Ambulation, Self Care Patient states he has been active with therapy, working on walking short distances with prosthetic, pivoting to w/c, getting assist with some ADLs SUBJECTIVE Agreeable to PT THERAPY DIAGNOSIS Reduced mobility-other, Muscle Weakness (generalized) TREATMENT INTERVENTIONS Evaluation $ Evaluation-Moderate (15752) Billed Units: 1 unit Skilled Treatment Time (minutes): 15 TRAINING AND EDUCATION PROVIDED Benefits of In-Hospital Mobility, Role of Physical Therapy THERAPEUTIC SKILLS USED Cues for Sequencing/Proper Technique for Activity, Movement Facilitation FUNCTIONAL STATUS Bed Mobility Supine To Sit: Contact Guard Assistance Sit to Supine: Contact Guard Assistance Transfers Sit To Stand: Additional Information declined trial, doesnt have prosthetic here, wants to lie down Bed to Chair Gait Stairs Range of Motion: ROM Limitation Comments ROM Limitation Comments: R KEVINA Strength: Strength Limitation Comments Strength Limitation Comments: R CLEMENTE, LLE grossly 4-/5 GOALS Able to Perform HEP with: Verbal Cues Only Rolling with: Stand By Assistance Transfer Supine to/from Sit with: Stand By Assistance Transfer Sit to/from Stand with: Minimal Assistance Transfer: Bed to chair with modA Rehab Potential: Fair Fair Rehab Potential Due To: Multiple co- morbidities ACUTE CARE TREATMENT PLAN PT Frequency: 3 Times Per Week (2-3) Treatment Interventions: Education, Strengthening, Balance Training, Functional Mobility Training SIGNATURE: Savanah Gar PT PATIENT NAME: Mitul Oakes DATE: December 05, 2024 TIME: 12:36 PM Normal [facility] XR CHEST 1V FRONTALon 2024 XR CHEST 1V FRONTAL * * *Final Report* * * DATE OF EXAM: Dec 05 2024 3:21AM AKX [id number] - XR CHEST 1V FRONTAL / PROCEDURE REASON: Shortness of breath * * * * Physician Interpretation * * * * EXAMINATION: CHEST RADIOGRAPH (SINGLE VIEW AP OR PA) CLINICAL HISTORY: Shortness of breath MQ: XC1_5 Comparison: 12.04.24 RESULT: Lines, tubes, and devices: Right PICC line tip terminates in the SVC Lungs and pleura: Prominent right epicardial fat pad Cardiomediastinal silhouette: Normal cardiomediastinal silhouette. Other: . IMPRESSION: Right basilar opacification identified on CT not well visualized on x-ray. Entry Level Recruiter: PSCB Transcribe Date/Time: Dec 05 2024 4:23A Dictated by : ALICJA TORRES MD This examination was interpreted and the report reviewed and electronically signed by: ALICJA TORRES MD on Dec 05 2024 4:24AM EST [id number] Normal [facility] ALLIED HEALTHon 12-04-2024 ALLIED HEALTH HNO ID: [id number] Author: GLORIA GAR RN Service: Infection Prevention Author Type: Registered Nurse Type: Allied Health Filed: 12/04/2024 14:16 Note Text: ISOLATION NOTE Admission Date: 12/03/2024 Type of Isolation Recommended: Contact Precautions ([place] Isolation Sign) Indication: Parainfluenza Date Isolation Initiated: 12/04/2024 Anticipated Duration of Isolation: In consultation with Infection Prevention Type and Date of Positive Test(s): Positive for Parainfluenza 3 RNA by Expanded Respiratory Pathogen Panel by PCR collected on 12/03/2024 Contact Precautions is required for Parainfluenza Virus related to ability to contaminate surfaces for long periods of time. A surgical mask can be worn according to Standard Precautions (e.g. patient is actively coughing, sneezing, or unable to control secretions) to protect the caregiver providing direct patient care. SIGNATURE: Gloria Gar RN PATIENT NAME: Mitul Oakes DATE: December 04, 2024 TIME: 2:12 PM PAGER/CONTACT #: Infection Prevention, [phone] Infection Prevention after hours/weekend pager: [phone] [facility] ALLIED HEALTH HNO ID: [id number] Author: TERRELL JANSEN RT(R) Service: Radiology Author Type: Technologist Type: Allied Health Filed: 12/04/2024 11:00 Note Text: Radiology Service Progress Note DATE OF SERVICE: December 04, 2024 TIME: 10:59 AM PATIENT IDENTITY VERIFICATION COMPLETED USING TWO (2) STANDARD IDENTIFIERS: Name and Date of confirmed by patient verbally and Name and Date of confirmed by identification band. FALL SCREENING: Has the patient had 2 falls in the last year or 1 fall with injury or currently using an Ambulatory Assistive Device (Walker, Cane, Wheelchair, Crutches, etc.)? Inpatient: Screened on floor PATIENT GENDER DATA: Assigned male at PATIENT RELEVANT IMPLANT DATA REVIEWED: Not Applicable PATIENT PRESENTS WITH AN IMPLANTABLE OR ATTACHED COMPUTATIONAL BIOLOGIST: No ALLERGIES: Reviewed and unchanged CONTRAST ALLERGY: NO. EXAM: CT -CONTRAST INDUCED NEPHROPATHY RISK FACTORS: Patient age > 60 years CREATININE: Creatinine Date Value Ref Range Status 12/04/2024 0.86 0.73 - 1.22 mg/dL Final 12/03/2024 1.01 0.73 - 1.22 mg/dL Final 07/02/2024 1.14 0.73 - 1.22 mg/dL Final Estimated Glomerular Filtration Rate Date Value Ref Range Status 12/04/2024 94 >=60 mL/min/1.73m? Final Comment: Estimated Glomerular Filtration Rate (eGFR) is calculated using the 2020 CKD-EPI creatinine equation. This equation utilizes serum creatinine, sex, and age as parameters. The creatinine assay has traceable calibration to isotope dilution-mass spectrometry. Refer to KDIGO guidelines for clinical interpretation. In patients with unstable renal function, e.g. those with acute kidney injury, the eGFR may not accurately reflect actual GFR. P.O.C.T. RESULTS: N/A December 04, 2024 TREATMENT: N/A PERIPHERAL IV DATA: Inpatient - refer to LDA documentation RADIOLOGY DEPARTMENT: CT; Exam(s) Completed: PE Study SIGNATURE: RT Jannie(R) PATIENT NAME: Mitul Oakes DATE: December 04, 2024 TIME: 10:59 AM Normal [facility] Basic metabolic 2000 panelon 12-04-2024 Anion gap [Moles/Vol] 10 mmol/L Normal 8-15 [facility] Comment on above: Order Comment: Raudel carrillo Type: BLOOD SPECIMENOrdering Facility: [facility] Address: [address] [place] [address] Performed By: #### 2 4321-2, 2776-06, ####[facility] LABORATORYCLIA [id number] [place] [address] [place] Calcium [Mass/Vol] 8.7 mg/dL Normal 8.5-10.2 [facility] Comment on above: Order Comment: Raudel carrillo Type: BLOOD SPECIMENOrdering Facility: [facility] Address: [address] [place] [address] Performed By: #### 2 4321-2, 2776-, ####[facility]ORATORYCLIA [id number] [place] [address] [place] Chloride [Moles/Vol] 100 mmol/L Normal 98-107 [facility] Comment on above: Order Comment: Raudel carrillo Type: BLOOD SPECIMENOrdering Facility: [facility] Address: [address] [place] [address] Performed By: #### 2 4321-2, 2776-06, ####[facility]ORATORYCLIA [id number] [place] [address] [place] CO2 [Moles/Vol] 27 mmol/L Normal 22-30 [facility] Comment on above: Order Comment: Speci men Type: BLOOD SPECIMENOrdering Facility: [facility] Address: [address] [place] [address] Performed By: #### 2 4321-2, 2776-06, ####[facility] LABORATORYCLIA [id number] [place] [id number] [place] Creatinine [Mass/Vol] 0.86 mg/dL Normal 0.73-1.22 [facility] Comment on above: Order Comment: Speci men Type: BLOOD SPECIMENOrdering Facility: [facility] Address: [address] [place] [address] Performed By: #### 2 432-2, 2776-06, ####[facility]ITALIA [id number] [address] STATES OF [facility] Creatinine and Glomerular filtration rate.predicted panel (S/P/Bld) 94 mL/min/1.73m??? Normal >=60 [facility] Comment on above: Order Comment: Speci men Type: BLOOD SPECIMENOrdering Facility: [facility] Address: [address] [place] [address] Result Comment: Sachi mated Glomerular Filtration Rate (eGFR) is calculated using the 2020 CKD-EPI creatinine equation. This equation utilizes serum creatinine, sex, and age as parameters. The creatinine assay has traceable calibration to isotope dilution-mass spectrometry. Refer to KDIGO guidelines for clinical interpretation. In patients with unstable renal function, e.g. those with acute kidney injury, the eGFR may not accurately reflect actual GFR. Performed By: #### 2 4321-2, 2776-06, ####[facility] LABORATORYCLIA [id number] [place] [address] [place] Glucose [Mass/Vol] 195 mg/dL High 74-99 [facility] Comment on above: Order Comment: Speci men Type: BLOOD SPECIMENOrdering Facility: [facility] Address: [address] [place], [place] [address] Result Comment: The [place] [employer] (ADA) provides guidance for cutoff values for fasting glucose and random glucose. The ADA defines fasting as no caloric intake for at least 8 hours. Fasting plasma glucose results between 100 to 125 mg/dL indicate increased risk for diabetes (prediabetes). Fasting plasma glucose results greater than or equal to 126 mg/dL meet the criteria for diagnosis of diabetes. In the absence of unequivocal hyperglycemia, results should be confirmed by repeat testing. In a patient with classic symptoms of hyperglycemia or hyperglycemic crisis, random plasma glucose results greater than or equal to 200 mg/dL meet the criteria for diagnosis of diabetes. Reference: Standards of Medical Care in Diabetes 2016, [place] [employer]. Diabetes Care. 2016.39(Suppl 1). Performed By: #### 2 4321-2, 2776-06, ####[facility] LABORATORYCLIA [id number] [place] [address] [place] Potassium [Moles/Vol] 3.6 mmol/L Low 3.7-5.1 [facility] Comment on above: Order Comment: Raudel carrillo Type: BLOOD SPECIMENOrdering Facility: [facility] Address: [address] [place] [address] Performed By: #### 2 4321-2, 2776-06, ####[facility] LABORATORYCLIA [id number] [place] [address] [place] Sodium [Moles/Vol] 137 mmol/L Normal 136-144 [facility] Comment on above: Order Comment: Speci men Type: BLOOD SPECIMENOrdering Facility: [facility] Address: [address] [place] [address] Performed By: #### 2 4321-2, 2776-06, ####[facility]ORATORYCLIA [id number] [place] [address] [place] Urea nitrogen [Mass/Vol] 10 mg/dL Normal 9-24 [facility] Comment on above: Order Comment: Speci men Type: BLOOD SPECIMENOrdering Facility: [facility] Address: [address] [place] [address] Performed By: #### 2 4321-2, 2777-1, 36400-0 ####[facility] LABORATORYCLIA [id number] [address] CBC panel Auto (Bld)on 12-04 Erythrocyte distribution width (RBC) [Ratio] 17.2 % High 11.5-15.0 [facility] Comment on above: Order Comment: Speci men Type: BLOOD SPECIMENOrdering Facility: [facility] Address: [address] [place] [address] Performed By: #### 5 8410-2 ####[facility] LABORATORYCLIA [id number] [address] [place] Hematocrit (Bld) [Volume fraction] 43.9 % Normal 39.0-51.0 [facility] Comment on above: Order Comment: Speci men Type: BLOOD SPECIMENOrdering Facility: [facility] Address: [address] [place] [address] Performed By: #### 5 8410-2 ####[facility] LABORATORYCLIA [id number] [address] [place] Hemoglobin (Bld) [Mass/Vol] 14.0 g/dL Normal 13.0-17.0 [facility] Comment on above: Order Comment: Speci men Type: BLOOD SPECIMENOrdering Facility: [facility] Address: [address] [place] [address] Performed By: #### 5 8410-2 ####[facility] LABORATORYCLIA [id number] [address] [place] MCH (RBC) [Entitic mass] 25.8 pg Low 26.0-34.0 [facility] Comment on above: Order Comment: Speci men Type: BLOOD SPECIMENOrdering Facility: [facility] Address: [address] [place] [address] Performed By: #### 5 8410-2 ####[facility] LABORATORYCLIA [id number] [address] STATES OF [facility] MCHC (RBC) [Mass/Vol] 31.9 g/dL Normal 30.5-36.0 [facility] Comment on above: Order Comment: Speci men Type: BLOOD SPECIMENOrdering Facility: [facility] Address: [address] [place] [address] Performed By: #### 5 8410-2 ####[facility] LABORATORYCLIA [id number] [address] OF [facility] MCV (RBC) [Entitic vol] 80.8 fL Normal 80.0-100.0 [facility] Comment on above: Order Comment: Speci men Type: BLOOD SPECIMENOrdering Facility: [facility] Address: [address] [place] [address] Performed By: #### 5 8410-2 ####[facility] LABORATORYCLIA [id number] [address] Nucleated RBC (Bld) [#/Vol] 10*3/uL Normal <0.01 [facility] Comment on above: Order Comment: Speci men Type: BLOOD SPECIMENOrdering Facility: [facility] Address: [address] [place] [address] Performed By: #### 5 8410-2 ####[facility]ORATORYCLIA [id number] [address] [place] Platelet mean volume (Bld) [Entitic vol] 9.8 fL Normal 9.0-12.7 [facility] Comment on above: Order Comment: Speci men Type: BLOOD SPECIMENOrdering Facility: [facility] Address: [address] [place] [address] Performed By: #### 5 8410-2 ####[facility] LABORATORYCLIA [id number] [address] OF [place] Platelets (Bld) [#/Vol] 239 10*3/uL Normal 150-400 [facility] Comment on above: Order Comment: Speci men Type: BLOOD SPECIMENOrdering Facility: [facility] Address: [address] [place] [address] Performed By: #### 5 8410-2 ####[facility] LABORATORYCLIA [id number] [place] [id number] [place] RBC (Bld) [#/Vol] 5.43 10*6/uL Normal 4.20-6.00 [facility] Comment on above: Order Comment: Speci men Type: BLOOD SPECIMENOrdering Facility: [facility] Address: [address] [place] [address] Performed By: #### 5 8410-2 ####[facility] LABORATORYCLIA [id number] [place] [id number] [place] [facility] WBC (Bld) [#/Vol] 9.75 10*3/uL Normal 3.70-11.00 [facility] Comment on above: Order Comment: Speci men Type: BLOOD SPECIMENOrdering Facility: [facility] Address: [address] [place] [address] Performed By: #### 5 8410-2 ####[facility] LABORATORYCLIA [id number] [address] OF [facility] CONSULTon 12-04-2024 CONSULT HNO ID: [id number] Author: ANY GRANT DO Service: Infectious Disease Author Type: Physician Type: Consults Filed: 12/04/2024 14:24 Note Text: INFECTIOUS DISEASE CONSULT NOTE SERVICE DATE: December 04, 2024 SERVICE TIME: 9:20 AM We were asked to evaluate Mr. Mitul Oakes, a 69 year old yo male by Dr. Sarah Vega for "chronic Osteomyletis and Acute CAP on meropenem." The patient was a fair historian. Our findings and recommendations will be communicated through the shared medical record. Subjective HPI: Mitul Oakes is a 69 year old male is known to have below stated medical problems. Background: -Seen previously by Dr. Whitehead at [facility] -S/P R BKA -DM2 -DVT -PAD -S/P IANDD of L foot to bone wound vac 05-26-2024 culture culture S haemolyticus, S epidermidis, Enterobacter, C parapsilosis s/p vancomycin, ceftriaxone and fluconazole -S/P angiogram 06-02-2024 ballon angioplasty of distal L superficial femoral artery with 5 x 60 mm [place] ballon and 6 x 80 mm DCB -S/P L hallux amputation bone biopsy 1st MT IANDD deep L dorsal foot 06-05-2024 Recently seen by MARC JOHNSTON for L 2nd toe started on empiric doxycycline and culture with MRSA and Klebsiella pneumonia and completed a course of IV ertapenem and trimethoprim-sulfamet hoxazole 10-07-2024. This admission patient presented with short of breath started earlier this week with green and yellow sputum with emesis. His SpO2 84% upon presentation and was placed on 4L NC. COVID/influenza/RSV negative and CXR showed small R pleural effusion with adjacent atelectasis. Per patient he will be undergoing L 2nd toe amputation at the [facility] in [place]. Current other medications reviewed. Current Facility-Administered Medications Medication Dose Route Frequency meropenem 1 g in NaCl 0.9% 100 mL Vial-Bag (MERREM) 1 g INTRAVENOUS q 8 H iv contrast (radiology procedure) INTRAVENOUS DIRECTED PRN NaCl 0.9% iv flush bag 20 mL INTRAVENOUS PRN vancomycin dosing and monitoring per pharmacy OTHER As Directed vancomycin iv piggyback 1.5 g in D5W 300 mL (VANCOCIN) 1.5 g INTRAVENOUS q 12 HR pregabalin 200 mg cap(s) (LYRICA) 200 mg ORAL TID carvedilol 25 mg tab(s) (COREG) 25 mg ORAL BID w MEALS ezetimibe 10 mg tab(s) (ZETIA) 10 mg ORAL DAILY isosorbide mononitrate ER 30 mg tab(s) (IMDUR) 30 mg ORAL DAILY spironolactone 12.5 mg tab(s) (ALDACTONE) 12.5 mg ORAL DAILY clopidogrel 75 mg tab(s) (PLAVIX) 75 mg ORAL DAILY rivaroxaban 2.5 mg tab(s) (XARELTO) 2.5 mg ORAL BID atorvastatin 80 mg tab(s) (LIPITOR) 80 mg ORAL DAILY insulin glargine 17 Units pen (long acting) 17 Units SUBCUTANEOUS BID dextrose 15 gram/32 mL 15 g (TRUEPLUS) 15 g ORAL PRN Or glucagon 1 mg injection 1 mg INTRAMUSCULAR PRN Or dextrose 10% iv bolus 12.5 g INTRAVENOUS PRN insulin lispro injection (rapid acting) (ADMElog) SUBCUTANEOUS w MEALS ipratropium-albuterol 3 mL nebulizer solution (DUONEB) 3 mL INHALATION QID albuterol 2.5 mg /3 mL (0.083 %) 2.5 mg (PROVENTIL) 2.5 mg INHALATION q 6 H PRN predniSONE 40 mg tab(s) (DELTASONE) 40 mg ORAL DAILY buPROPion XL 300 mg tab(s) (WELLBUTRIN XL) 300 mg ORAL DAILY busPIRone 7.5 mg tab(s) (BUSPAR) 7.5 mg ORAL BID No past medical history on file. PAST SURGICAL HISTORY Procedure Laterality Date APPENDECTOMY HX 83 COLSC FLX W/RMVL OF TUMOR POLYP LESION SNARE TQ 06/21/2015 Social History Tobacco Use Smoking status: Former Current packs/day: 3.00 Average packs/day: 3.0 packs/day for 49.6 years (148.7 ttl pk-yrs) Types: Cigarettes Start date: 05/10/1975 Passive exposure: Never FAMILY HISTORY Problem Relation Age of Onset Cancer Mother skin Diabetes Mother Diabetes Father Stroke Brother Hypertension Father ALLERGIES Allergen Reactions Heparin Other: See Comments HIIT [facility]. 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, caused right BKA Amitryptyline [Justin* Itching Per patient REVIEW OF SYSTEMS: Review of Systems Constitutional: Positive for activity change and fatigue. Negative for chills and fever. HENT: Negative. Respiratory: Positive for cough, chest tightness and shortness of breath. Cardiovascular: Negative for chest pain. Gastrointestinal: Negative. Genitourinary: Negative. Musculoskeletal: Positive for gait problem. Skin: Positive for wound. Neurological: Positive for weakness. Psychiatric/Behaviora l: Negative. Objective PHYSICAL EXAM: BP 157/93 Pulse 89 Temp 36.3 ?C (97.4 ?F) (Oral) Resp 18 Wt 124.7 kg (275 lb) SpO2 (!) 88% BMI 38.35 kg/m? No intake or output data in the 24 hours ending 12/04/24 0920 Physical Exam Constitutional: General: He is not in acute distress. Appearance: He is obese. He is ill-appearing (mild). HENT: Head: Normocephalic and atraumatic. Nose: Nose normal. Mouth/Throat: Pharynx: Oropharynx is clear. Eyes: General: No scleral icterus. Conjunctiva/sclera: Conjunctivae normal. Cardiovascular: (more content not included)... Normal [facility] CONSULT PROGon 12-04-2024 CONSULT PROG HNO ID: [id number] Author: NHUNG MELENDEZ RPh Service: Pharmacy Author Type: Pharmacist Type: Consult Progress Note Filed: 12/04/2024 14:32 Note Text: PHARMACY VANCOMYCIN DOSING NOTE Patient Name: Mitul Oakes Admission Date: 12/03/2024 Date of Consult: 12/04/2024 Time of Consult: 2:32 PM RECOMMENDATIONS/PLAN: Pharmacy consulted for vancomycin dosing for Mitul Oakes, a 69 year old male. Vancomycin therapy has been discontinued. Vancomycin level(s) have been discontinued: Yes. The pharmacy vancomycin dosing service will sign off. Thank you for allowing us to participate in this patient's care. Please contact pharmacy if there are questions. Nhung Melendez lisa Normal [facility] CONSULT PROG HNO ID: [id number] Author: HOWARD DUBOIS RPh Service: Pharmacy Author Type: Pharmacist Type: Consult Progress Note Filed: 12/04/2024 12:56 Note Text: PHARMACY VANCOMYCIN DOSING NOTE Patient Name: Mitul Oakes Admission Date: 12/03/2024 Date of Consult: 12/04/2024 Time of Consult: 12:49 PM Indication: Respiratory infection (per consult order, but [facility] Goal Range: 15-20 mcg/mL RECOMMENDATIONS/PLAN: Pharmacy consulted for vancomycin dosing for Mitul Oakes, a 69 year old male. 1. Patient is currently ordered Vancomycin 1.5 g IV q12h. Today is day 2 of therapy. 2. No vancomycin level has been drawn for this dosing regimen. 3. Will adjust vancomycin to 1.75 g with a dosing interval of q24h. But will check level in am 12/05/24 before beginning. 4. The next vancomycin level has been ordered for 12/06/23 with am labs. (Completed) 5. MRSA nares negative Patient [facility] The ertapenem is listed to end on 12/24/24. I called and spoke with pharmacist at [facility] who read ID notes and looks like vanco may end on 12/24/24 also. Per [facility] pharmacist, patient was on vanco 1,5g q12h in early November and 9.5hr level was 28.3 so dose was changed to 1g q12h. Trough on 12/01 was 24, so dose was changed to 1.75g q24h. Patient has received 1.5g vanco here at 1930 on 12/03 and 0630 on 12/04. Will stop further doses of vancomycin now and check random level in am on 12/05. If level is at goal, will initiate 1.75g q24h at that time. We will follow patient renal function, vancomycin levels and doses with you during the course of therapy. Additional recommendations will appear in follow up notes. If you have any questions, please contact Kelley AngelD via [employer] [place] [phone]. Age: [age] year old Allergies: ALLERGIES Allergen Reactions Heparin Other: See Comments HIIT [facility]. 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, caused right BKA Amitryptyline [Justin* Itching Per patient Last 3 Encounter Wt Readings: Date: Wt: 12/03/2024 124.7 kg (275 lb) 07/02/2024 124.7 kg (275 lb) 05/23/2024 126.4 kg (278 lb 10.6 oz) Last 1 Encounter Ht Readings: Date: Ht: 12/03/2024 177.8 cm (5' 10") Estimated Creatinine Clearance: 109 mL/min (based on SCr of 0.86 mg/dL). Temp (24hrs), Av.6 ?C (97.8 ?F), Min:36.3 ?C (97.4 ?F), Max:36.7 ?C (98.1 ?F) - Current Temp: 36.3 ?C (97.4 ?F) Labs BUN (mg/dL) Date Value 12/04/2024 10 12/03/2024 7 (L) 07/02/2024 10 Creatinine (mg/dL) Date Value 12/04/2024 0.86 12/03/2024 1.01 07/02/2024 1.14 WBC (k/uL) Date Value 12/04/2024 9.75 12/03/2024 18.73 (H) 07/02/2024 9.45 Vancomycin Levels: Vancomycin (ug/mL) Date/Time Value 06/06/2024 1355 14.8 06/02/2024 1008 16.9 Howard Dubois [facility] CONSULT PROG HNO ID: [id number] Author: PRINCESS HENDRICKS RN Service: Wound/Ostomy Author Type: Registered Nurse Type: Consult Progress Note Filed: 12/04/2024 14:11 Note Text: Summary: Initial Wound Care Visit WOUND NURSE PROGRESS NOTE SERVICE DATE: 12/04/2024 SERVICE TIME: 1218 Wound care consulted by Aakash Molina MD for bilateral foot. WOUND: Wound 06/05/24 0950 Diabetic Ulcer Toe D2, second Left (Active) Assessments 12/04/2024 12:21 PM Wound Image Site Assessment Brown;Dry Carmita-Wound Assessment Calloused Shape round Wound Length (cm) 0.8 cm Wound Width (cm) 0.6 cm Wound Surface Area (cm2) 0.48 cm2 Wound Depth (cm) 0 cm Wound Volume (cm3) 0 cm3 Drainage Amount None Odor None Treatments Cleansed Dressing Gauze/Sodium Chloride Impregnated;Gauze/Pac smita Plain Dressing Changed New Dressing Status Clean;Dry;Intact Active Orders Date Order Priority Status Authorizing Provider 12/04/24 1403 DRESSING CARE (SPECIFY) ([place]), Diabetic Ulcer Left Toe D2, second Routine Active Blasiole, Kirsten N, HORIZONTAL RESAW OPERATOR.LEASE ADMINISTRATOR - Reason:: apply Mesalt dressing to the left second toe, cover with gauze and seucre with paper tape Left heel skin intact ans blanching, R BKA. Offload Left heel with pillow while in bed. Coccyx skin intact, blanching with Allevyn foam dressing intact. Barriers to Healing: Age, Body habitus, Comorbid conditions, Mobility, and Moisture Pressure Injury Prevention: Heel offloading, Low air loss surface, Moisture management, Redistribution surface, and Turn schedule Orders Placed This Encounter DRESSING CARE (SPECIFY) ([place]), Diabetic Ulcer Left Toe D2, second Order Comments: Wash wound with soap and water or wound cleanser with every dressing change. Freq: Daily Reason:: apply Mesalt dressing to the left second toe, cover with gauze and seucre with paper tape DRESSING CARE (SPECIFY) ([place]), Order Comments: Peel back to assess skin every shift. Change every 3 days or when soiled. Freq: Every 3 Days Reason:: apply Allevyn foam dressing to the coccyx area for pressure injury prevention Counseling Provided: Prevention Dressing/ointments Observations Follow Up: Information provided to Patient PHOTOGRAPHY: A photo was taken of the patient's wound(s). Photos can be found under the Scanned Documents tab on [facility]. The purpose of the photo(s) is to optimize the patient's medical care and allow a visual aid to their wound evaluation and progress. Photo was taken of: Left second toe Thank you for including me in the care of this patient. Wound Care to sign off. Please re-consult with any new concerns. SIGNATURE: Princess Hendricks RN PATIENT NAME: Mitul Oakes DATE: December 04, 2024 TIME: 2:06 PM Normal [facility] CTA CHEST (NON GATED) W IVCO N PEon 12-04-2024 CTA CHEST (NON GATED) W IVCON PE * * *Final Report* * * DATE OF EXAM: Dec 04 2024 11:01AM [facility] 0564 - CTA CHEST (NON GATED) W IVCON PE / PROCEDURE REASON: Pulmonary embolism (PE) suspected, high prob * * * * Physician Interpretation * * * * EXAMINATION: CHEST CTA (NON GATED) WITH CONTRAST (PULMONARY EMBOLISM PROTOCOL) Clinical History: Shortness of breath. Vomiting. Technique: Spiral CT acquisition of the chest from the thoracic inlet to the upper abdomen following IV contrast. Axial 1 and 3 mm thick slices plus coronal and sagittal reformatted images. MQ: CTCP_5 Contrast: 100 mL Omnipaque [address] Radiation dose: Integrated Dose-length product (DLP) for this visit = 431 mGy*cm CT Dose Reduction Employed: Automated exposure control(AEC) and iterative recon CTA: Post-processed images (Maximum intensity Projection (MIP), Volume-rendered (VR), or Surface shaded display images (SSD) were created, reviewed and archived. Comparison: No relevant prior studies available. RESULT: Limitations: None. Evaluation for thromboembolic disease: Nondiagnostic regions of some segmental and subsegmental pulmonary arteries. - Right heart chambers: No thromboembolic disease. - Main pulmonary arteries: No thromboembolic disease. - Lobar pulmonary arteries: No thromboembolic disease. - Segmental pulmonary arteries: No thromboembolic disease. - Subsegmental pulmonary arteries: No thromboembolic disease. - Additional pulmonary artery findings: The main pulmonary artery is normal in caliber. Lines, tubes, and devices: Right arm central line tip at the distal SVC. Lung parenchyma and airways: Bronchial wall thickening Right middle lobectomy Areas of mucous plugging Mixed consolidative and tree-in-bud opacities throughout the lungs, worst within the right lower lobe. Pleural space: No pleural effusion. No pleural thickening. Lower neck, lymph nodes, and mediastinum: Mediastinal lymph nodes up to 1.2 cm short axis subcarinal region Right hilar lymph nodes up to 1.4 cm short axis Left hilar lymph nodes up to 1.3 cm short axis Heart, pericardium, and thoracic vessels: The thoracic aorta is normal in caliber. The cardiac chambers are normal in size. Coronary artery atherosclerotic calcifications are noted, although the study is not optimized for coronary assessment. No pericardial effusion or thickening. Bones and soft tissues: Likely postsurgical changes involving the subcutaneous right upper back No acute osseous abnormality Upper abdomen: Small splenic cyst Localizer images: No additional findings. IMPRESSION: No CT evidence of pulmonary embolism. Airway inflammation with mixed consolidative and tree-in-bud opacities throughout the lungs, worst within the right lower lobe, likely infectious/inflammato ry. Consider 3-6 month follow-up to confirm resolution. Mediastinal and bilateral hilar adenopathy, likely reactive Entry Level Recruiter: DRAKE Transcribe Date/Time: Dec 04 2024 11:04A Dictated by : SOL KRAFT MD This examination was interpreted and the report reviewed and electronically signed by: SOL KRAFT MD on Dec 04 2024 11:24AM EST [id number] Normal [facility] ED NOTEon 12-04-2024 ED NOTE HNO ID: [id number] Author: DION PÉREZ, RN Service: Emergency Medicine Author Type: Registered Nurse Type: ED Notes Filed: 12/04/2024 08:00 Note Text: Spoke with Apple Turner Lizia, room is clean and asked her to let Nurse know of patient Normal [facility] ED NOTE HNO ID: [id number] Author: BETZY LÓPEZ, ALEXANDRE Service: Emergency Medicine Author Type: Registered Nurse Type: ED Notes Filed: 12/04/2024 02:33 Note Text: Pt found with his cannula off his face, SPO2 83%. O2 placed back on his face and richard to 96%. Pt reminded to keep his cannula in his nose. Normal [facility] HISTORY PHYSICALon HISTORY PHYSICAL HNO ID: [id number] Author: AUG[place]O LAKE MD Service: [facility] Author Type: Resident Type: H&P Filed: 12/04/2024 20:41 Note Text: Attestation signed by Augusto Lake MD at 12/04/2024 8:41 PM Attending Note I personally saw and examined the patient. I reviewed the resident's note. I agree with the resident's assessment and plan unless otherwise noted. See my note from today Signature: Augusto Lake MD Date: 12/04/2024 Time: 8:41 PM [facility] [place] HANDP PATIENT NAME: Mitul Oakes ADMITTED FOR: COPD with acute exacerbation (HCC) DATE: 12/03/2024 Subjective HPI Mr. 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 He had one episode of greenish yellow sputum emesis. He was saturating 84% upon EMS arrival and was placed on 4L N/C. Got 1 dose of Duo neb and solumedrol by EMS. CPAP was attempted by EMS but patient did not tolerate. Was Vancomycin and Ertapenem for Left foot and toe infection. Changed Ertapenem to Meropenem for pseudomonas coverage. In ED, Wbc 18.7, absolute neutrophil count 16.04. CXR - small right pleural effusion with adjacent atelectasis. Review of Systems Constitutional: Positive for activity change, appetite change and fatigue. HENT: Positive for congestion. Eyes: Negative. Respiratory: Positive for cough, shortness of breath and wheezing. Skin: Positive for wound. Allergic/Immunologic: Negative. Neurological: Negative. Hematological: Negative. Psychiatric/Behaviora l: Negative. All other systems reviewed and are negative. No past medical history on file. PAST SURGICAL HISTORY Procedure Laterality Date APPENDECTOMY HX 83 COLSC FLX W/RMVL OF TUMOR POLYP LESION SNARE TQ 06/21/2015 FAMILY HISTORY Problem Relation Age of Onset Cancer Mother skin Diabetes Mother Diabetes Father Stroke Brother Hypertension Father Social History Tobacco Use Smoking status: Former Current packs/day: 3.00 Average packs/day: 3.0 packs/day for 49.6 years (148.7 ttl pk-yrs) Types: Cigarettes Start date: 05/10/1975 Passive exposure: Never No current facility-administered medications on file prior to encounter. Current Outpatient Medications on File Prior to Encounter Medication Sig traZODone (DESYREL) 50 mg tablet Take 50 mg by mouth daily at bedtime. (Patient not taking: Reported on 10/14/2024) albuterol sulfate (PROAIR DIGIHALER) 90 mcg/actuation aebs Inhale 2 Puffs as instructed every 4 hours as needed for wheezing/shortness of breath. ezetimibe (ZETIA) 10 mg tablet Take 10 mg by mouth once daily. clopidogrel (PLAVIX) 75 mg tablet Take 75 mg by mouth once daily. busPIRone (BUSPAR) 7.5 mg tablet Take 7.5 mg by mouth two times a day. potassium chloride SR (MICRO-K) 10 mEq CR capsule Take 10 mEq by mouth once daily. pantoprazole DR (PROTONIX) 40 mg tablet Take 40 mg by mouth two times a day. (Patient not taking: Reported on 09/16/2024) sodium chlor-hypochlorous acid (VASHE) 0.033 % irsl Irrigate as instructed as directed. With each wound care dressing change ondansetron (ZOFRAN) 4 mg tablet Take 4 mg by mouth every 8 hours as needed for nausea/vomiting. vancomycin 500 mg/100 mL IVPB Inject 500 mg intravenously every 12 hours. Per family - not on Aug but should go through 06/27/2024 (Patient not taking: Reported on 07/10/2024) oxyCODONE IR (ROXICODONE) 30 mg immediate release tablet Take 30 mg by mouth every 6 hours as needed for pain. aspirin, enteric coated (ASPIRIN, ENTERIC COATED) 81 mg EC tablet Take 81 mg by mouth once daily. atorvastatin (LIPITOR) 80 mg tablet Take 1 tablet by mouth once daily. bsphdvhakf-xqtrluvb-t ormoterol (BREZTRI) 160-9-4.8 mcg/actuation HFA aerosol inhaler Inhale 2 Puffs as instructed two times a day. buPROPion XL (WELLBUTRIN XL) 150 mg 24 hr tablet Take 300 mg by mouth every morning. insulin glargine-yfgn (SEMGLEE) 100 unit/mL (3 mL) insulin pen Inject 25 Units subcutaneously two times a day. (Patient not taking: Reported on 09/16/2024) isosorbide mononitrate ER (IMDUR) 30 mg 24 hr tablet Take 30 mg by mouth. Pregabalin (LYRICA) 200 mg capsule Take 1 capsule by mouth three times a day. rivaroxaban (XARELTO) 2.5 mg tablet Take 2.5 mg by mouth two times a day. semaglutide (OZEMPIC) 2 mg/dose (8 mg/3 mL) pen injector Inject 2 mg subcutaneously one time a week. spironolactone (ALDACTONE) 25 mg tablet Take 0.5 tablets by mouth once daily. torsemide (DEMAD (more content not included)... Normal [facility] Magnesium [facility] 12-04 Magnesium [Mass/Vol] 2.3 mg/dL Normal 1.7-2.3 [facility] Comment on above: Order Comment: Speci men Type: BLOOD SPECIMENOrdering Facility: [facility] Address: [address] [place] [address] Performed By: #### 2 4321-2, 2776-06, ####[facility] LABORATORYCLIA [id number] [address] STATES OF [facility]ate [facility] Phosphate [Mass/Vol] 3.5 mg/dL Normal 2.7-4.8 [facility] Comment on above: Order Comment: Speci men Type: BLOOD SPECIMENOrdering Facility: [facility] Address: [address] [place] [address] Performed By: #### 2 4321-2, 2776-06, ####[facility] LABORATORYCLIA [id number] [address] [place] Bacteria Bld Culton 12-04-19 25 Bacteria identified Cx Nom (Bld) CULTURE, BLOOD: No growth 5 days Normal [facility] Comment on above: Performed By: #### 6 7 #### [facility] CLIA [id number] [address] Performed By: #### 6 00-7 ####[facility]ORATORYCLIA [id number] [place] [address] [place] CBC W Auto Differential pane l (Bld)on 12-03-2024 Basophils (Bld) [#/Vol] 0.14 10*3/uL High <0.11 [facility] Comment on above: Order Comment: Speci men Type: BLOOD SPECIMENOrdering Facility: [facility] Address: [address] [place] [address] Performed By: #### 5 7021-8 ####[facility]ATORYCLIA [id number] [address] [place] Basophils/100 WBC (Bld) 0.7 % Normal [facility] Comment on above: Order Comment: Speci men Type: BLOOD SPECIMENOrdering Facility: [facility] Address: [address] [place] [address] Performed By: #### 5 7021-8 ####[facility]ORATORYCLIA [id number] [address] Differential cell count method Nom (Bld) Auto Normal [facility] Comment on above: Order Comment: Speci men Type: BLOOD SPECIMENOrdering Facility: [facility] Address: [address] [place] [address] Performed By: #### 5 7021-8 ####[facility]ORATORYCLIA [id number] [place] [address] [place] Eosinophils (Bld) [#/Vol] 0.15 10*3/uL Normal <0.46 [facility] Comment on above: Order Comment: Speci men Type: BLOOD SPECIMENOrdering Facility: [facility] Address: [address] [place] [address] Performed By: #### 5 7021-8 ####[facility]ATORYCLIA [id number] [address] Eosinophils/100 WBC (Bld) 0.8 % Normal [facility] Comment on above: Order Comment: Speci men Type: BLOOD SPECIMENOrdering Facility: [facility] Address: [address] [place] [address] Performed By: #### 5 7021-8 ####[facility]ORATORYCLIA [id number] [address] [place] Erythrocyte distribution width (RBC) [Ratio] 18.4 % High 11.5-15.0 [facility] Comment on above: Order Comment: Speci men Type: BLOOD SPECIMENOrdering Facility: [facility] Address: [address] [place] [address] Performed By: #### 5 7021-8 ####[facility]ORATORYCLIA [id number] [address] [place] Hematocrit (Bld) [Volume fraction] 46.6 % Normal 39.0-51.0 [facility] Comment on above: Order Comment: Speci men Type: BLOOD SPECIMENOrdering Facility: [facility] Address: [address] [place] [address] Performed By: #### 5 7021-8 ####[facility]ORATORYCLIA [id number] [address] [place] Hemoglobin (Bld) [Mass/Vol] 15.0 g/dL Normal 13.0-17.0 [facility] Comment on above: Order Comment: Speci men Type: BLOOD SPECIMENOrdering Facility: [facility] Address: [address] [place] [address] Performed By: #### 5 7021-8 ####[facility]ORATORYCLIA [id number] [address] [place] Immature granulocytes (Bld) [#/Vol] 0.12 10*3/uL High <0.10 [facility] Comment on above: Order Comment: Speci men Type: BLOOD SPECIMENOrdering Facility: [facility] Address: [address] [place] [address] Performed By: #### 5 7021-8 ####[facility]ORATORYCLIA [id number] [address] [place] Immature granulocytes/100 WBC (Bld) 0.6 % Normal [facility] Comment on above: Order Comment: Speci men Type: BLOOD SPECIMENOrdering Facility: [facility] Address: [address] [place] [address] Performed By: #### 5 7021-8 ####[facility]ORATORYCLIA [id number] [address] [place] Lymphocytes (Bld) [#/Vol] 1.08 10*3/uL Normal 1.00-4.00 [facility] Comment on above: Order Comment: Speci men Type: BLOOD SPECIMENOrdering Facility: [facility] Address: [address] [place] [address] Performed By: #### 5 7021-8 ####[facility]ORATORYCLIA [id number] [address] Lymphocytes/100 WBC (Bld) 5.8 % Normal [facility] Comment on above: Order Comment: Speci men Type: BLOOD SPECIMENOrdering Facility: [facility] Address: [address] [place] [address] Performed By: #### 5 7021-8 ####[facility]ORATORYCLIA [id number] [address] [place] MCH (RBC) [Entitic mass] 26.2 pg Normal 26.0-34.0 [facility] Comment on above: Order Comment: Speci men Type: BLOOD SPECIMENOrdering Facility: [facility] Address: [address] [place] [address] Performed By: #### 5 7021-8 ####[facility]ORATORYCLIA [id number] [address] [place] MCHC (RBC) [Mass/Vol] 32.2 g/dL Normal 30.5-36.0 [facility] Comment on above: Order Comment: Speci men Type: BLOOD SPECIMENOrdering Facility: [facility] Address: [address] [place] [address] Performed By: #### 5 7021-8 ####[facility]ORATORYCLIA [id number] [address] [place] MCV (RBC) [Entitic vol] 81.5 fL Normal 80.0-100.0 [facility] Comment on above: Order Comment: Speci men Type: BLOOD SPECIMENOrdering Facility: [facility] Address: [address] [place] [address] Performed By: #### 5 7021-8 ####[facility]ORATORYCLIA [id number] [place] [address] [place] Monocytes (Bld) [#/Vol] 1.20 10*3/uL High <0.87 [facility] Comment on above: Order Comment: Speci men Type: BLOOD SPECIMENOrdering Facility: [facility] Address: [address] [place] [address] Performed By: #### 5 7021-8 ####[facility]ORATORYCLIA [id number] [address] [place] Monocytes/100 WBC (Bld) 6.4 % Normal [facility] Comment on above: Order Comment: Speci men Type: BLOOD SPECIMENOrdering Facility: [facility] Address: [address] [place] [address] Performed By: #### 5 7021-8 ####[facility]ORATORYCLIA [id number] [address] [place] Neutrophils (Bld) [#/Vol] 16.04 10*3/uL High 1.45-7.50 [facility] Comment on above: Order Comment: Speci men Type: BLOOD SPECIMENOrdering Facility: [facility] Address: [address] [place] [address] Performed By: #### 5 7021-8 ####[facility]ORATORYCLIA [id number] [address] [place] Neutrophils/100 WBC (Bld) 85.7 % Normal [facility] Comment on above: Order Comment: Speci men Type: BLOOD SPECIMENOrdering Facility: [facility] Address: [address] [place] [address] Performed By: #### 5 7021-8 ####[facility]ORATORYCLIA [id number] [place] [address] [place] Nucleated RBC (Bld) [#/Vol] 10*3/uL Normal <0.01 [facility] Comment on above: Order Comment: Speci men Type: BLOOD SPECIMENOrdering Facility: [facility] Address: [address] [place] [address] Performed By: #### 5 7021-8 ####[facility]ATORYCLIA [id number] [place] [address] [place] Nucleated RBC/100 WBC (Bld) [Ratio] 0.0 /100 WBC Normal [facility] Comment on above: Order Comment: Speci men Type: BLOOD SPECIMENOrdering Facility: [facility] Address: [address] [place] [address] Performed By: #### 5 7021-8 ####[facility]ORATORYCLIA [id number] [place] [address] [place] Platelet mean volume (Bld) [Entitic vol] 10.0 fL Normal 9.0-12.7 [facility] Comment on above: Order Comment: Speci men Type: BLOOD SPECIMENOrdering Facility: [facility] Address: [address] [place] [address] Performed By: #### 5 7021-8 ####[facility]ORATORYCLIA [id number] [place] [address] [place] Platelets (Bld) [#/Vol] 289 10*3/uL Normal 150-400 [facility] Comment on above: Order Comment: Speci men Type: BLOOD SPECIMENOrdering Facility: [facility] Address: [address] [place] [address] Performed By: #### 5 7021-8 ####[facility]ATORYCLIA [id number] [place] [address] [place] RBC (Bld) [#/Vol] 5.72 10*6/uL Normal 4.20-6.00 [facility] Comment on above: Order Comment: Speci men Type: BLOOD SPECIMENOrdering Facility: [facility] Address: [address] [place] [id number] Performed By: #### 5 7021-8 ####[facility]ORATORYCLIA [id number] [address] OF [facility] WBC (Bld) [#/Vol] 18.73 10*3/uL High 3.70-11.00 [facility] Comment on above: Order Comment: Speci men Type: BLOOD SPECIMENOrdering Facility: [facility] Address: [address] [place] [id number] Performed By: #### 5 7021-8 ####[facility] LABORATORYCLIA [id number] [place] [id number] [facility] CONSULT PROGon 12-03-2024 CONSULT PROG HNO ID: [id number] Author: NHUNG MELENDEZ RPh Service: Pharmacy Author Type: Pharmacist Type: Consult Progress Note Filed: 12/03/2024 18:12 Note Text: PHARMACY VANCOMYCIN DOSING NOTE Patient Name: Mitul Oakes Admission Date: 12/03/2024 Date of Consult: 12/03/2024 Time of Consult: 6:07 PM Indication: Respiratory infection Goal Range: 15-20 mcg/mL RECOMMENDATIONS/PLAN: Pharmacy consulted for vancomycin dosing for Mitul Oakes, a 69 year old male. 1. Patient is currently ordered Vancomycin 1.5 g IV q12h. Today is day 1 of therapy. Patient's scr wnl and around baseline. Patient is of larger size and will use adjusted body weight to dose vancomycin to prevent accumulation. 2. No vancomycin level has been drawn for this dosing regimen. 3. The present dose of vancomycin is the recommended dosage for this patient at this time. Continue therapy as prescribed. 4. The next vancomycin level has been ordered for 12/05 @ 1730. (Completed) 5. S. aureus nasal PCR swab ordered We will follow patient renal function, vancomycin levels and doses with you during the course of therapy. Additional recommendations will appear in follow up notes. If you have any questions[place] [phone]. Age: [age] year old Allergies: ALLERGIES Allergen Reactions Heparin Other: See Comments HIIT [facility]. 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, caused right BKA Amitryptyline [Justin* Itching Per patient Last 3 Encounter Wt Readings: Date: Wt: 12/03/2024 124.7 kg (275 lb) 07/02/2024 124.7 kg (275 lb) 05/23/2024 126.4 kg (278 lb 10.6 oz) Last 1 Encounter Ht Readings: Date: Ht: 05/23/2024 180.3 cm (5' 11") CrCl: 94 mL/min Temp (24hrs), Av.7 ?C (98.1 ?F), Min:36.7 ?C (98.1 ?F), Max:36.7 ?C (98.1 ?F) - Current Temp: 36.7 ?C (98.1 ?F) Labs BUN (mg/dL) Date Value 12/03/2024 7 (L) 07/02/2024 10 06/06/2024 15 Creatinine (mg/dL) Date Value 12/03/2024 1.01 07/02/2024 1.14 06/06/2024 1.03 WBC (k/uL) Date Value 12/03/2024 18.73 (H) 07/02/2024 9.45 06/06/2024 10.37 Vancomycin Levels: Vancomycin (ug/mL) Date/Time Value 06/06/2024 1355 14.8 06/02/2024 1008 16.9 Nhung Melendez, [facility] Normal [facility] Comprehensive metabolic 2000 panelon 12-03-2024 Albumin [Mass/Vol] 3.5 g/dL Low 3.9-4.9 [facility] Comment on above: Order Comment: Speci lorena Type: BLOOD SPECIMENOrdering Facility: [facility] Address: [address] [place] [address] Performed By: #### 2 4323-8, 56347-4, 02852-5 ####[facility]ORATORYCLIA [id number] [place] [address] [place] ALP [Catalytic activity/Vol] 167 U/L High 38-113 [facility] Comment on above: Order Comment: Speci men Type: BLOOD SPECIMENOrdering Facility: [facility] Address: [address] [place] [address] Performed By: #### 2 4323-8, 34592-2, 94313-4 ####[facility]ORATORYCLIA [id number] [address] [place] ALT With P-5'-P [Catalytic activity/Vol] 18 U/L Normal 10-54 [facility] Comment on above: Order Comment: Speci men Type: BLOOD SPECIMENOrdering Facility: [facility] Address: [address] [place] [address] Performed By: #### 2 4323-8, 23740-9, 99460-3 ####[facility]ORATORYCLIA [id number] [address] OF [facility] Anion gap [Moles/Vol] 13 mmol/L Normal 8-15 [facility] Comment on above: Order Comment: Speci men Type: BLOOD SPECIMENOrdering Facility: [facility] Address: [address] [place] [address] Performed By: #### 2 4323-8, 80449-6, 54066-7 ####[facility]ORATORYCLIA [id number] [address] [place] With P-5'-P [Catalytic activity/Vol] 19 U/L Normal 14-40 [facility] Comment on above: Order Comment: Speci men Type: BLOOD SPECIMENOrdering Facility: [facility] Address: [address] [place] [address] Performed By: #### 2 4323-8, 85616-3, 99268-4 ####[facility]ORATORYCLIA [id number] [place] [id number] [place] Bilirubin [Mass/Vol] 0.6 mg/dL Normal 0.2-1.3 [facility] Comment on above: Order Comment: Speci men Type: BLOOD SPECIMENOrdering Facility: [facility] Address: [address] [place] [address] Performed By: #### 2 4323-8, , 63112-5 ####[facility]ATORYCLIA [id number] [place] [address] [place] Calcium [Mass/Vol] 8.7 mg/dL Normal 8.5-10.2 [facility] Comment on above: Order Comment: Speci men Type: BLOOD SPECIMENOrdering Facility: [facility] Address: [address] [place] [address] Performed By: #### 2 4323-8, , 87964-2 ####[facility]ORATORYCLIA [id number] [place] [id number] [place] Chloride [Moles/Vol] 98 mmol/L Normal 98-107 [facility] Comment on above: Order Comment: Speci men Type: BLOOD SPECIMENOrdering Facility: [facility] Address: [address] [place] [address] Performed By: #### 2 4323-8, , 29083-0 ####[facility]ATORYCLIA [id number] [place] [address] [place] CO2 [Moles/Vol] 26 mmol/L Normal 22-30 [facility] Comment on above: Order Comment: Speci men Type: BLOOD SPECIMENOrdering Facility: [facility] Address: [address] [place] [address] Performed By: #### 2 4323-8, , 52155-3 ####[facility]ATORYCLIA [id number] [place] [address] [place] Creatinine [Mass/Vol] 1.01 mg/dL Normal 0.73-1.22 [facility] Comment on above: Order Comment: Speci men Type: BLOOD SPECIMENOrdering Facility: [facility] Address: [address] [place] [address] Performed By: #### 2 4323-8, , 29687-3 ####[facility]ATORYCLIA [id number] [place] [id number] [place] Creatinine and Glomerular filtration rate.predicted panel (S/P/Bld) 81 mL/min/1.73m??? Normal >=60 [facility] Comment on above: Order Comment: Raudel carrillo Type: BLOOD SPECIMENOrdering Facility: [facility] Address: [address] [place] [address] Result Comment: Sachi mated Glomerular Filtration Rate (eGFR) is calculated using the 2020 CKD-EPI creatinine equation. This equation utilizes serum creatinine, sex, and age as parameters. The creatinine assay has traceable calibration to isotope dilution-mass spectrometry. Refer to KDIGO guidelines for clinical interpretation. In patients with unstable renal function, e.g. those with acute kidney injury, the eGFR may not accurately reflect actual GFR. Performed By: #### 2 4323-8, 93636-6, 90214-0 ####[facility] HOSPITALIA [id number] [place] [address] [place] Glucose [Mass/Vol] 135 mg/dL High 74-99 [facility] Comment on above: Order Comment: Raudel carrillo Type: BLOOD SPECIMENOrdering Facility: [facility] Address: [address] [place] [address] Result Comment: The [place] [employer] (ADA) provides guidance for cutoff values for fasting glucose and random glucose. The ADA defines fasting as no caloric intake for at least 8 hours. Fasting plasma glucose results between 100 to 125 mg/dL indicate increased risk for diabetes (prediabetes). Fasting plasma glucose results greater than or equal to 126 mg/dL meet the criteria for diagnosis of diabetes. In the absence of unequivocal hyperglycemia, results should be confirmed by repeat testing. In a patient with classic symptoms of hyperglycemia or hyperglycemic crisis, random plasma glucose results greater than or equal to 200 mg/dL meet the criteria for diagnosis of diabetes. Reference: Standards of Medical Care in Diabetes 2016, [place] [employer]. Diabetes Care. 2016.39(Suppl 1). Performed By: #### 2 4323-8, 27287-0, 38479-9 ####[facility] [id number] [place] [id number] [place] Potassium [Moles/Vol] 3.8 mmol/L Normal 3.7-5.1 [facility] Comment on above: Order Comment: Speci men Type: BLOOD SPECIMENOrdering Facility: [facility] Address: [address] [place] [address] Performed By: #### 2 4323-8, 94351-5, 74406-6 ####[facility]ORATORYCLIA [id number] [place] [id number] [place] Protein [Mass/Vol] 7.9 g/dL Normal 6.3-8.0 [facility] Comment on above: Order Comment: Speci men Type: BLOOD SPECIMENOrdering Facility: [facility] Address: [address] [place] [address] Performed By: #### 2 4323-8, 53063-4, 74083-9 ####[facility]ORATORYCLIA [id number] [address] [place] Sodium [Moles/Vol] 137 mmol/L Normal 136-144 [facility] Comment on above: Order Comment: Speci men Type: BLOOD SPECIMENOrdering Facility: [facility] Address: [address] [place] [address] Performed By: #### 2 4323-8, 78239-1, 79957-3 ####[facility]ATORYCLIA [id number] [place] [id number] [place] Urea nitrogen [Mass/Vol] 7 mg/dL Low 9-24 [facility] Comment on above: Order Comment: Speci men Type: BLOOD SPECIMENOrdering Facility: [facility] Address: [address] [place] [address] Performed By: #### 2 4323-8, 38876-8, 93123-3 ####[facility]ORATORYCLIA [id number] [place] [id number] [place] ECG COMPLETEon 12-03-2024 ECG COMPLETE Ventricular Rate : 116 BPM Atrial Rate : 116 BPM P-R Interval : 178 ms QRS Duration : 96 ms Q-T Interval : 326 ms QTC Calculation(Bazett) : 453 ms Calculated P [place] : 14 degrees Calculated R [place] : 18 degrees Calculated T [place] : 63 degrees SINUS TACHYCARDIA POSSIBLE LEFT ATRIAL ENLARGEMENT BORDERLINE ECG NO PREVIOUS ECGS AVAILABLE Confirmed by DEVANTE ALEXANDER MD ([id number]) on 12/04/2024 12:33:34 PM NAME : MITUL OAKES PID : [id number] : 1955 Gender : Male Race : Unknown ORD : [id number] Procedure Date : Dec 03 2024 17:07:01 Edit Date : Dec 04 2024 12:33:37 Diagnosis: SINUS TACHYCARDIA POSSIBLE LEFT ATRIAL ENLARGEMENT BORDERLINE ECG NO PREVIOUS ECGS AVAILABLE Confirmed by DEVANTE ALEXANDER MD ([id number]) on 12/04/2024 12:33:34 PM Test Reason : Chest Pain Location : 4 : [facility] EM Overread By : DEVANTE ALEXANDER MD Edited By : DEVANTE ALEXANDER MD Referred By : , Acquired by : SUKHWINDER NUNEZ [facility] ED NOTEon 12-03-2024 ED NOTE HNO ID: [id number] Author: FREDI MINAYA, ALEXANDRE Service: Nursing Author Type: Registered Nurse Type: ED Notes Filed: 12/03/2024 22:50 Note Text: Patient taken off of Bipap at this time per RT [facility] ED NOTE HNO ID: [id number] Author: HELENE DAMON RN Service: Emergency Medicine Author Type: Registered Nurse Type: ED Notes Filed: 12/03/2024 17:48 Note Text: Pt has requested water multiple times. Pt has been informed due to his respiratory status and vomiting on arrival, he can not have anything at this time. Will re-evaluate at a later time. [facility] ED NOTE HNO ID: [id number] Author: BOLIVAR CHACON, Allison Service: ? Author Type: Angiography Technologist and Rater Associate Type: ED Notes Filed: 12/03/2024 17:00 Note Text: Bed: 05-ED Expected date: 12/03/24 Expected time: 4:55 PM Means of arrival: Denis Fire/EMS Comments: Denis sob C-PAP [facility] ED PROV NOTEon 12-03-2024 ED PROV NOTE HNO ID: [id number] Author: JOHN ALBRIGHT DO Service: Emergency Medicine Author Type: Resident Type: ED Provider Notes Filed: 12/08/2024 15:27 Note Text: Attestation signed by John Albright DO at 12/08/2024 3:27 PM Attending Physician Attestation Note: [place]uther[place] findings confirmed. I saw the patient in coordination with the resident physician. I personally interviewed and examined the patient. I discussed the patient with the resident physician. I reviewed the resident physician's note. I was present for sutherland portions of and personally supervised any/all procedures. I personally saw the patient and performed a substantive portion of the visit including all aspects of the medical decision making. I agree with the resident physician's findings and medical decision making unless otherwise documented. Critical Care Time I spent a total of at least 35 minutes of critical care time in the evaluation and management of this patient. This was necessary to treat or prevent deterioration of the patient's critical condition which the patient had and/or has a high probability of suddenly developing. I discussed the plan of care with the Resident Physician and/or THEE and agree with the findings documented. Critical care time excludes separately billed procedures. Signature: John Albright DO Date: 12/08/2024 Time: 3:26 PM ED Provider Note Patient Name: Mitul Oakes : 1955 SERVICE DATE: 12/03/24 History Patient presents with: Difficulty Breathing: Patient arrives from nursing facility in moderate resp distress. His O2 sat was 84% on 4 L N/C on EMS arrival. On 15 L his O2 sat was in the high 80's. EMS gave 1 duoneb and Solu-medrol enroute to ED. Patient slightly nauseated on arrival then nausea subsided. Patient placed on Bipap on arrival to ED. HPI Mitul Oakes is a 69-year-old male presenting today from a facility for worsening shortness of breath. Increased work of breathing started earlier today. He was hypoxic. He was placed on 4 L nasal cannula by EMS. They eventually placed him on a nonrebreather. Patient presents in respiratory distress. Was given 1 DuoNeb as well as Solu-Medrol en route. EMS attempted CPAP but patient did not tolerate. History of COPD. States he is on Plavix. Reportedly has been on vancomycin and ertapenem for an infection in the left foot and toe. No past medical history on file. PAST SURGICAL HISTORY Procedure Laterality Date APPENDECTOMY HX 83 COLSC FLX W/RMVL OF TUMOR POLYP LESION SNARE TQ 06/21/2015 FAMILY HISTORY Problem Relation Age of Onset Cancer Mother skin Diabetes Mother Diabetes Father Stroke Brother Hypertension Father Social History Tobacco Use Smoking status: Former Current packs/day: 3.00 Average packs/day: 3.0 packs/day for 49.6 years (148.7 ttl pk-yrs) Types: Cigarettes Start date: 05/10/1975 Passive exposure: Never Smokeless tobacco: Not on file Substance and Sexual Activity Alcohol use: Not on file Drug use: Not on file Sexual activity: Not on file ALLERGIES Allergen Reactions Heparin Other: See Comments HIIT New pt to [facility] on 05/23/24. 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, caused right BKA Amitryptyline [[place]* Itching Per patient Review of Systems Constitutional: Negative for fatigue and fever. HENT: Negative for hearing loss and sore throat. Eyes: Negative for visual disturbance. Respiratory: Positive for shortness of breath. Negative for cough and wheezing. Cardiovascular: Negative for chest pain and palpitations. Gastrointestinal: Negative for abdominal pain, blood in stool, constipation and diarrhea. Genitourinary: Negative for difficulty urinating. Musculoskeletal: Negative for arthralgias. Neurological: Positive for weakness. Negative for dizziness, syncope, light-headedness and headaches. Physical Exam Vitals [12/03/24 1705] BP Pulse Temp Temp src Resp SpO2 Weight Height 141/90 (!) 114 36.7 ?C (98.1 ?F) -- (!) 28 97 % 124.7 kg (275 lb) -- Physical Exam Constitutional: General: He is in acute distress. Appearance: Normal appearance. He is ill-appearing. HENT: Head: Normocephalic and atraumatic. Right Ear: Tympanic membrane normal. Left Ear: Tympanic membrane normal. Nose: Nose normal. No congestion or rhinorrhea. Eyes: General: Right eye: No discharge. Left eye: No discharge. Extraocular Movements: Extraocular movements intact. Pupils: Pupils are equal, round, and reactive to light. Cardiovascular: Rate and Rhythm: Normal rate. Pulses: Normal pulses. Heart sounds: Normal heart sounds. No murmur heard. No friction rub. No gallop. Pulmonary: Effort: Tachypnea and respiratory distress present. Breath sounds: Examination of the left-upper field reveals decreased breath soun (more content not included)... Normal [facility] HIGH SENSITIVITY TROPONIN T (INITIAL)on 12-03-2024 Troponin T.cardiac High sensitivity method [Mass/Vol] 23 ng/L High <12 [facility] Comment on above: Order Comment: Speci men Type: BLOOD SPECIMENOrdering Facility: [facility] Address: [address] [place] [address] Performed By: #### L [id number] ####[facility] LABORATORYCLIA [id number] [address] HIGH SENSITIVITY TROPONIN T (SECOND)on 12-03-2024 Troponin T.cardiac High sensitivity method [Mass/Vol] 25 ng/L High <12 [facility] Comment on above: Order Comment: Payali lorena Type: BLOOD SPECIMENOrdering Facility: [facility] Address: [address] [place] [address] Performed By: #### L [id number] ####[facility]ORATORYCLIA [id number] [address] HIGH SENSITIVITY TROPONIN T (THIRD) 3 HRS AFTER INITIALon 12-03-2024 Troponin T.cardiac High sensitivity method [Mass/Vol] 23 ng/L High <12 [facility] Comment on above: Order Comment: Payali lorena Type: BLOOD SPECIMENOrdering Facility: [facility] Address: [address] [place] [address] Performed By: #### L [id number] ####[facility] LABORATORYIA [id number] [place] [address] [place] HISTORY PHYSICALon HISTORY PHYSICAL HNO ID: [id number] Author: SARAH VEGA MD Service: Hospital Medicine Author Type: Resident Type: H&P Filed: 12/04/2024 18:01 Note Text: Attestation signed by Sarah Vega MD at 12/04/2024 6:01 PM Attending Note I discussed with resident. The patient was not examined by the attending. I reviewed the resident's note. I agree with the resident's assessment and plan unless otherwise noted. Signature: Sarah Vega MD Date: 12/04/2024. Time: 6:01 PM [facility] [place] [facility] PATIENT NAME: Mitul Oakes ADMITTED FOR: COPD with acute exacerbation (HCC) DATE: 12/03/2024 Subjective HPI Mr. 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 He had one episode of greenish yellow sputum emesis. He was saturating 84% upon EMS arrival and was placed on 4L N/C. Got 1 dose of Duo neb and solumedrol by EMS. CPAP was attempted by EMS but patient did not tolerate. Was Vancomycin and Ertapenem for Left foot and toe infection. Changed Ertapenem to Meropenem for pseudomonas coverage. In ED, Wbc 18.7, absolute neutrophil count 16.04. CXR - small right pleural effusion with adjacent atelectasis. Review of Systems Respiratory: Positive for cough, shortness of breath and wheezing. Skin: Positive for wound. No past medical history on file. PAST SURGICAL HISTORY Procedure Laterality Date APPENDECTOMY HX 83 COLSC FLX W/RMVL OF TUMOR POLYP LESION SNARE TQ 06/21/2015 FAMILY HISTORY Problem Relation Age of Onset Cancer Mother skin Diabetes Mother Diabetes Father Stroke Brother Hypertension Father Social History Tobacco Use Smoking status: Former Current packs/day: 3.00 Average packs/day: 3.0 packs/day for 49.6 years (148.7 ttl pk-yrs) Types: Cigarettes Start date: 05/10/1975 Passive exposure: Never No current facility-administered medications on file prior to encounter. Current Outpatient Medications on File Prior to Encounter Medication Sig traZODone (DESYREL) 50 mg tablet Take 50 mg by mouth daily at bedtime. (Patient not taking: Reported on 10/14/2024) albuterol sulfate (PROAIR DIGIHALER) 90 mcg/actuation aebs Inhale 2 Puffs as instructed every 4 hours as needed for wheezing/shortness of breath. ezetimibe (ZETIA) 10 mg tablet Take 10 mg by mouth once daily. clopidogrel (PLAVIX) 75 mg tablet Take 75 mg by mouth once daily. busPIRone (BUSPAR) 7.5 mg tablet Take 7.5 mg by mouth two times a day. potassium chloride SR (MICRO-K) 10 mEq CR capsule Take 10 mEq by mouth once daily. pantoprazole DR (PROTONIX) 40 mg tablet Take 40 mg by mouth two times a day. (Patient not taking: Reported on 09/16/2024) sodium chlor-hypochlorous acid (VASHE) 0.033 % irsl Irrigate as instructed as directed. With each wound care dressing change ondansetron (ZOFRAN) 4 mg tablet Take 4 mg by mouth every 8 hours as needed for nausea/vomiting. vancomycin 500 mg/100 mL IVPB Inject 500 mg intravenously every 12 hours. Per family - not on Aug but should go through 06/27/2024 (Patient not taking: Reported on 07/10/2024) oxyCODONE IR (ROXICODONE) 30 mg immediate release tablet Take 30 mg by mouth every 6 hours as needed for pain. aspirin, enteric coated (ASPIRIN, ENTERIC COATED) 81 mg EC tablet Take 81 mg by mouth once daily. atorvastatin (LIPITOR) 80 mg tablet Take 1 tablet by mouth once daily. tiwrxwrnqy-pqwvuzcn-z ormoterol (BREZTRI) 160-9-4.8 mcg/actuation HFA aerosol inhaler Inhale 2 Puffs as instructed two times a day. buPROPion XL (WELLBUTRIN XL) 150 mg 24 hr tablet Take 300 mg by mouth every morning. insulin glargine-yfgn (SEMGLEE) 100 unit/mL (3 mL) insulin pen Inject 25 Units subcutaneously two times a day. (Patient not taking: Reported on 09/16/2024) isosorbide mononitrate ER (IMDUR) 30 mg 24 hr tablet Take 30 mg by mouth. Pregabalin (LYRICA) 200 mg capsule Take 1 capsule by mouth three times a day. rivaroxaban (XARELTO) 2.5 mg tablet Take 2.5 mg by mouth two times a day. semaglutide (OZEMPIC) 2 mg/dose (8 mg/3 mL) pen injector Inject 2 mg subcutaneously one time a week. spironolactone (ALDACTONE) 25 mg tablet Take 0.5 tablets by mouth once daily. torsemide (DEMADEX) 20 mg tablet Take 1 tablet by mouth every morning. [place]-3 Fatty Acids-Vitamin E (FISH OIL) 1,000 mg cap Take 1 capsule by mouth. (Patient not taking: Reported on 07/25/2024) carvedilol (COREG) 25 mg tablet Take 25 mg by mouth twice daily with meals. vitamin D3-vitamin K2, MK4, 1,000-100 unit-mcg tab (more content not included)... Normal [facility] Legionella Ag Ur Qlon 2024 Legionella sp Ag Ql (U) Negative Normal Negative [facility] Comment on above: Order Comment: Speci men Type: URINE SPECIMENOrdering Facility: [facility] Address: [address] [place] [address] Result Comment: Pres umptive negative for L. pneumophila serogroup 1 antigen in urine, suggesting no recent or current infection. Infection due to Legionella cannot be ruled out since other serogroups and species may cause disease, antigen may not be present in urine in early infection, and the level of antigen present in the urine may be below the detection limit of the test. Performed By: #### 3 2781-7 ####[facility]IA [id number] [address] [place] Magnesium SerPl-mCncon 12-03 Magnesium [Mass/Vol] 1.7 mg/dL Normal 1.7-2.3 [facility] Comment on above: Order Comment: Speci men Type: BLOOD SPECIMENOrdering Facility: [facility] Address: [address] [place] [address] Performed By: #### 2 4323-8, 77890-3, 21928-8 ####[facility]IA [id number] [place] [address] [place] NT-proBNP SerPl-ncon 12-03 Natriuretic peptide.B prohormone N-Terminal [Mass/Vol] 531 pg/mL High <125 [facility] Comment on above: Order Comment: Speci lorena Type: BLOOD SPECIMENOrdering Facility: [facility] Address: [address] [place] [address] Performed By: #### 2 4323-8, 58912-4, 17920-7 ####[facility] [id number] [address] [place] Procalcitonin SerPl-ncon 0 12-03-2024 Procalcitonin [Mass/Vol] 0.09 ng/mL High <0.09 [facility] Comment on above: Order Comment: Speci men Type: BLOOD SPECIMENOrdering Facility: [facility] Address: [address] [place] [address] Result Comment: For a guided interpretation of test results, please visit the Change in Procalcitonin Calculator, [email or web address]. Performed By: #### 3 3959-8 ####[facility] LABORATORYCLIA [id number] [address] STAPHYLOCOCCUS AUREUS AND MR SA SCREEN, PCR, NASALon 12-03-2024 S. aureus and MRSA panel OSCAR+probe (Nose) Not detected Normal Not Detected [facility] Comment on above: Order Comment: Speci men Type: SWABOrdering Facility: [facility] Address: [address] [place] [address] Performed By: #### S APCR ####[facility] LABORATORYCLIA [id number] [address] STREPTOCOCCUS PNEUMONIAE ANT IGEN URINEon 12-03-2024 STREPTOCOCCUS PNEUMONIAE ANTIGEN URINE STREP PNEUMO AG RESULT: Negative for Streptococcus pneumoniae antigen. Presumptive negative for pneumococcal pneumonia, suggesting no current or recent pneumococcal infection. Infection due to S.pneumoniae cannot be ruled out since the antigen present in the sample may be below the detection limit of the test. Normal [facility] Comment on above: Performed By: #### S PNAG #### [facility] CLIA [id number] [address] Urinalysis complete panel (U )on 12-03-2024 Bilirubin Ql (U) Negative Normal Negative [facility] Comment on above: Order Comment: Speci men Type: URINE SPECIMENOrdering Facility: [facility] Address: [address] [place] [address] Performed By: #### 2 4356-8 ####[facility]ORATORYCLIA [id number] [address] [place] Clarity (Unsp spec) Clear Normal Clear [facility] Comment on above: Order Comment: Speci men Type: URINE SPECIMENOrdering Facility: [facility] Address: [address] [place] [address] Performed By: #### 2 4356-8 ####[facility]ORATORYCLIA [id number] [address] Color (U) Yellow Normal yellow [facility] Comment on above: Order Comment: Speci men Type: URINE SPECIMENOrdering Facility: [facility] Address: [address] [place] [address] Performed By: #### 2 4356-8 ####[facility]ORATORYCLIA [id number] [address] Epithelial cells LM.HPF (Urine sed) [#/Area] Few Abnormal None Seen [facility] Comment on above: Order Comment: Speci men Type: URINE SPECIMENOrdering Facility: [facility] Address: [address] [place] [address] Performed By: #### 2 4356-8 ####[facility]ATORYCLIA [id number] [address] Glucose Test strip (U) [Mass/Vol] Negative Normal Trace, Negative [facility] Comment on above: Order Comment: Speci men Type: URINE SPECIMENOrdering Facility: [facility] Address: [address] [place] [address] Performed By: #### 2 4356-8 ####[facility]ORATORYCLIA [id number] [place] [address] [place] Hemoglobin Ql (U) Negative Normal Negative, Trace [facility] Comment on above: Order Comment: Speci men Type: URINE SPECIMENOrdering Facility: [facility] Address: [address] [place] [address] Performed By: #### 2 4356-8 ####[facility]ATORYCLIA [id number] [address] Hyaline casts (Urine sed) [#/Area] 4-10 /LPF Abnormal 0 /LPF [facility] Comment on above: Order Comment: Speci men Type: URINE SPECIMENOrdering Facility: [facility] Address: [address] [place] [address] Performed By: #### 2 4356-8 ####[facility]ORATORYCLIA [id number] [address] [place] Ketones Ql (U) Negative Normal Negative, Trace [facility] Comment on above: Order Comment: Speci men Type: URINE SPECIMENOrdering Facility: [facility] Address: [address] [place] [address] Performed By: #### 2 4356-8 ####[facility]ORATORYCLIA [id number] [address] Leukocyte esterase Test strip Ql (U) Negative Normal Negative, 25 Samanta/uL [facility] Comment on above: Order Comment: Speci men Type: URINE SPECIMENOrdering Facility: [facility] Address: [address] [place] [address] Performed By: #### 2 4356-8 ####[facility]ORATORYCLIA [id number] [address] Nitrite Ql (U) Negative Normal Negative [facility] Comment on above: Order Comment: Speci men Type: URINE SPECIMENOrdering Facility: [facility] Address: [address] [place] [address] Performed By: #### 2 4356-8 ####[facility]ORATORYCLIA [id number] [address] STATES [facility] pH (U) 5.5 [pH] Normal 5.0-8.0 [facility] Comment on above: Order Comment: Speci men Type: URINE SPECIMENOrdering Facility: [facility] Address: [address] [place] [address] Performed By: #### 2 4356-8 ####[facility]ORATORYCLIA [id number] [address] Protein (U) [Mass/Vol] Negative Normal Trace , Negative [facility] Comment on above: Order Comment: Speci men Type: URINE SPECIMENOrdering Facility: [facility] Address: [address] [place] [address] Performed By: #### 2 4356-8 ####[facility]ORATORYCLIA [id number] [address] [place] RBC LM.HPF (Urine sed) [#/Area] 3-5 /HPF Abnormal 0-3 /HPF [facility] Comment on above: Order Comment: Speci men Type: URINE SPECIMENOrdering Facility: [facility] Address: [address] [place] [address] Performed By: #### 2 4356-8 ####[facility]ORATORYCLIA [id number] [address] OF [facility] Specific gravity (U) [Rel density] 1.020 Normal 1.005-1.030 [facility] Comment on above: Order Comment: Speci men Type: URINE SPECIMENOrdering Facility: [facility] Address: [address] [place] [address] Performed By: #### 2 4356-8 ####[facility]ATORYCLIA [id number] [address] Urobilinogen Ql (U) Normal Normal Normal [facility] Comment on above: Order Comment: Speci men Type: URINE SPECIMENOrdering Facility: [facility] Address: [address] [place] [address] Performed By: #### 2 4356-8 ####[facility]ORATORYCLIA [id number] [address] WBC LM.HPF (Urine sed) [#/Area] 0-5 /HPF Normal 0-5 /HPF [facility] Comment on above: Order Comment: Speci men Type: URINE SPECIMENOrdering Facility: [facility] Address: [address] [place] [address] Performed By: #### 2 4356-8 ####[facility]ORATORYCLIA [id number] [address] [place] XR CHEST 1V FRONTALon 2024 XR CHEST 1V FRONTAL * * *Final Report* * * DATE OF EXAM: Dec 03 2024 5:19PM AKX [id number] - XR CHEST 1V FRONTAL / PROCEDURE REASON: Shortness of breath * * * * Physician Interpretation * * * * EXAMINATION: CHEST RADIOGRAPH (SINGLE VIEW AP OR PA) CLINICAL HISTORY: Shortness of breath MQ: XC1_5 Comparison: None available. RESULT: Lines, tubes, and devices: Right PICC tip projects over the SVC. Lungs and pleura: Mild hazy opacification of the right lung base with elevation of the right diaphragm. Blunting of the right costophrenic angle. No pneumothorax. Cardiomediastinal silhouette: Normal cardiomediastinal silhouette. Other: No definite acute osseous abnormality. IMPRESSION: Small, suspected right pleural effusion with adjacent atelectasis. Infection could appear similar. [employer] Level [employer]: [employer] Transcribe Date/Time: Dec 03 2024 5:49P Dictated by : REJI KWONG MD This examination was interpreted and the report reviewed and electronically signed by: REJI KWONG MD on Dec 03 2024 5:51PM EST [id number] Normal [facility] Absolute lymphocyte countOrd ered By: Melo [place] on 10-27-2024 Lymphocytes Auto (Unsp spec) [#/Vol] 2.35 10*3/uL 0.83-4.51 [facility] Absolute neutrophil countOrd ered By: Melo [place] on 10-27-2024 Neutrophils (Bld) [#/Vol] 4.3 10*3/uL 2.0-7.7 [facility] Automated lymphocyte count a s percentage of total leukocytesOrdered By: Melo [place] on 10-27-2024 Lymphocytes/100 WBC Auto (Unsp spec) 30.7 % 19-41 [facility] Basophil percentageOrdered B y: Melo [place] on 10-27-2024 Basophils/100 WBC (Bld) 0.8 % 0-1 [facility] Eosinophil percentageOrdered By: Melo [place] on 10-27-2024 Eosinophils/100 WBC (Bld) 1.6 % 0-5 [facility] Erythrocyte distribution wid th ratioOrdered By: Melo [place] on 10-27-2024 Erythrocyte distribution width (RBC) [Ratio] 17.0 % High 11.6-14.6 [facility] Erythrocyte distribution wid th standard deviationOrdered By: Melo [place] on 10-27-2024 Erythrocyte distribution width (RBC) [Ratio] 50.9 fl High 35.1-43.9 [facility] Glomerular filtration rate ( GFR) estimation/1.73 sq m using serum, plasma, or whole bOrdered By: Melo [place] on 10-27-2024 GFR/1.73 sq M.predicted among non-blacks MDRD (S/P/Bld) [Vol rate/Area] 95 mL/min/{1.73_m2} >60 [facility] Comment on above: mL/min/1.73m2 CKD-EP I Creatinine Equation (2020) Hematocrit Auto (Bld) [Volum e fraction]Ordered By: Melo [place] on 10-27-2024 Hematocrit (Bld) [Volume fraction] 46.1 % 40-54 [facility] Hemoglobin measurementOrdere d By: Melo [place] on 10-27-2024 Hemoglobin (Bld) [Mass/Vol] 14.3 g/dL 13.0-16.5 [facility] Immature granulocytes/100 WB C Auto (Bld)Ordered By: Melo [place] on 10-27-2024 Immature granulocytes/100 WBC (Bld) 0.700 % 0.0-0.9 [facility] Comment on above: IG% - Immature Granu locytes (promyelocytes, myelocytes and metamyelocytes) > 1% indicates that a LEFT SHIFT is Present. MCV (mean corpuscular volume ) determinationOrdered By: Melo [place] on 10-27-2024 MCV (RBC) [Entitic vol] 83.8 fL 80-94 [facility] Mean corpuscular hemoglobin (MCH) determinationOrdered By: Melo [place] on 10-27-2024 MCH (RBC) [Entitic mass] 26.0 pg Low 27.0-32.0 [facility] Mean corpuscular hemoglobin concentration (MCHC) determinationOrdered By: Melo [place] on 10-27-2024 MCHC (RBC) [Mass/Vol] 31.0 g/dL Low 32-36 [facility] Mean platelet volume determi nationOrdered By: Melo [place] on 10-27-2024 Platelet mean volume (Bld) [Entitic vol] 10.7 fL 6.2-12.0 [facility] Monocyte percentageOrdered B y: Melo [place] on 10-27-2024 Monocytes/100 WBC (Bld) 10.1 % High 0-10 [facility] Neutrophil percentageOrdered By: Melo [place] on 10-27-2024 Neutrophils/100 WBC (Bld) 56.1 % 47-70 [facility] Nucleated red blood cell per centageOrdered By: Melo [place] on 10-27-2024 Nucleated RBC/100 WBC (Bld) [Ratio] 0 % 0-5 [facility] Platelet countOrdered By: Manuel [place] on 10-27-2024 Platelets (Bld) [#/Vol] 235 10*3/uL 150-450 [facility] RBC Auto (Bld) [#/Vol]Ordere d By: Melo [place] on 10-27-2024 RBC (Bld) [#/Vol] 5.50 10*6/uL 4.6-6.2 [facility] Serum creatinine measurement (mass/volume)Ordered By: Melo [place] on 10-27-2024 Creatinine [Mass/Vol] 0.83 mg/dL 0.70-1.20 [facility] Serum or plasma alanine joiner otransferase (ALT) measurementOrdered By: Melo [place] on 10-27-2024 ALT [Catalytic activity/Vol] 17 U/L <47 [facility] White blood cell (WBC) count Ordered By: Melo [place] on 10-27-2024 WBC (Bld) [#/Vol] 7.7 10*3/uL 4.4-11.0 [facility] Absolute lymphocyte countOrd ered By: Melo [place] on 10-20-2024 Lymphocytes Auto (Unsp spec) [#/Vol] 1.71 10*3/uL 0.83-4.51 [facility] Absolute neutrophil countOrd ered By: Melo [place] on 10-20-2024 Neutrophils (Bld) [#/Vol] 6.5 10*3/uL 2.0-7.7 [facility] Automated lymphocyte count a s percentage of total leukocytesOrdered By: Melo [place] on 10-20-2024 Lymphocytes/100 WBC Auto (Unsp spec) 18.6 % Low 19-41 [facility] Basophil percentageOrdered B y: Melo [place] on 10-20-2024 Basophils/100 WBC (Bld) 0.7 % 0-1 [facility] Eosinophil percentageOrdered By: Melo [place] on 10-20-2024 Eosinophils/100 WBC (Bld) 1.5 % 0-5 [facility] Erythrocyte distribution wid th ratioOrdered By: Melo [place] on 10-20-2024 Erythrocyte distribution width (RBC) [Ratio] 16.5 % High 11.6-14.6 [facility] Erythrocyte distribution wid th standard deviationOrdered By: Melo [place] on 10-20-2024 Erythrocyte distribution width (RBC) [Ratio] 50.0 fl High 35.1-43.9 [facility] Glomerular filtration rate ( GFR) estimation/1.73 sq m using serum, plasma, or whole bOrdered By: Melo [place] on 10-20-2024 GFR/1.73 sq M.predicted among non-blacks MDRD (S/P/Bld) [Vol rate/Area] 94 mL/min/{1.73_m2} >60 [facility] Comment on above: mL/min/1.73m2 CKD-EP I Creatinine Equation (2020) Hematocrit Auto (Bld) [Volum e fraction]Ordered By: Melo [place] on 10-20-2024 Hematocrit (Bld) [Volume fraction] 42.4 % 40-54 [facility] Hemoglobin measurementOrdere d By: Melo [place] on 10-20-2024 Hemoglobin (Bld) [Mass/Vol] 13.6 g/dL 13.0-16.5 [facility] Immature granulocytes/100 WB C Auto (Bld)Ordered By: Melo [place] on 10-20-2024 Immature granulocytes/100 WBC (Bld) 0.400 % 0.0-0.9 [facility] Comment on above: IG% - Immature Granu locytes (promyelocytes, myelocytes and metamyelocytes) > 1% indicates that a LEFT SHIFT is Present. MCV (mean corpuscular volume ) determinationOrdered By: Melo [place] on 10-20-2024 MCV (RBC) [Entitic vol] 82.8 fL 80-94 [facility] Mean corpuscular hemoglobin (MCH) determinationOrdered By: Melo [place] on 10-20-2024 MCH (RBC) [Entitic mass] 26.6 pg Low 27.0-32.0 [facility] Mean corpuscular hemoglobin concentration (MCHC) determinationOrdered By: Melo [place] on 10-20-2024 MCHC (RBC) [Mass/Vol] 32.1 g/dL 32-36 [facility] Mean platelet volume determi nationOrdered By: Melo [place] on 10-20-2024 Platelet mean volume (Bld) [Entitic vol] 10.3 fL 6.2-12.0 [facility] Monocyte percentageOrdered B y: Melo [place] on 10-20-2024 Monocytes/100 WBC (Bld) 7.9 % 0-10 [facility] Neutrophil percentageOrdered By: Melo [place] on 10-20-2024 Neutrophils/100 WBC (Bld) 70.9 % High 47-70 [facility] Nucleated red blood cell per centageOrdered By: Melo [place] on 10-20-2024 Nucleated RBC/100 WBC (Bld) [Ratio] 0 % 0-5 [facility] Platelet countOrdered By: Manuel [place] on 10-20-2024 Platelets (Bld) [#/Vol] 205 10*3/uL 150-450 [facility] RBC Auto (Bld) [#/Vol]Ordere d By: Melo [place] on 10-20-2024 RBC (Bld) [#/Vol] 5.12 10*6/uL 4.6-6.2 [facility] Serum creatinine measurement (mass/volume)Ordered By: Melo Madison on 10-20-2024 Creatinine [Mass/Vol] 0.88 mg/dL 0.70-1.20 [facility] Serum or plasma alanine joiner otransferase (ALT) measurementOrdered By: Melo Madison on 10-20-2024 ALT [Catalytic activity/Vol] 8 U/L <47 [facility] White blood cell (WBC) count Ordered By: Melo Madison on 10-20-2024 WBC (Bld) [#/Vol] 9.2 10*3/uL 4.4-11.0 [facility] CNOVon 10-14-[address] [facility] Absolute lymphocyte countOrd ered By: Melo Madison on 10-13-2024 Lymphocytes Auto (Unsp spec) [#/Vol] 1.72 10*3/uL 0.83-4.51 [facility] Absolute neutrophil countOrd ered By: Melo Madison on 10-13-2024 Neutrophils (Bld) [#/Vol] 5.2 10*3/uL 2.0-7.7 [facility] Automated lymphocyte count a s percentage of total leukocytesOrdered By: Melo Madison on 10-13-2024 Lymphocytes/100 WBC Auto (Unsp spec) 21.8 % 19-41 [facility] Basophil percentageOrdered B y: Melo Madison on 10-13-2024 Basophils/100 WBC (Bld) 0.8 % 0-1 [facility] Eosinophil percentageOrdered By: Melo Madison on 10-13-2024 Eosinophils/100 WBC (Bld) 2.0 % 0-5 [facility] Erythrocyte distribution wid th ratioOrdered By: Melo Madison on 10-13-2024 Erythrocyte distribution width (RBC) [Ratio] 16.5 % High 11.6-14.6 [facility] Erythrocyte distribution wid th standard deviationOrdered By: eMlo Madison on 10-13-2024 Erythrocyte distribution width (RBC) [Ratio] 50.7 fl High 35.1-43.9 [facility] Glomerular filtration rate ( GFR) estimation/1.73 sq m using serum, plasma, or whole bOrdered By: Melo Madison on 10-13-2024 GFR/1.73 sq M.predicted among non-blacks MDRD (S/P/Bld) [Vol rate/Area] 75 mL/min/{1.73_m2} >60 [facility] Comment on above: mL/min/1.73m2 CKD-EP I Creatinine Equation (2020) Hematocrit Auto (Bld) [Volum e fraction]Ordered By: Melo Madison on 10-13-2024 Hematocrit (Bld) [Volume fraction] 41.2 % 40-54 [facility] Hemoglobin measurementOrdere d By: Melo Madison on 10-13-2024 Hemoglobin (Bld) [Mass/Vol] 12.8 g/dL Low 13.0-16.5 [facility] Immature granulocytes/100 WB C Auto (Bld)Ordered By: Melo Madison on 10-13-2024 Immature granulocytes/100 WBC (Bld) 0.400 % 0.0-0.9 [facility] Comment on above: IG% - Immature Granu locytes (promyelocytes, myelocytes and metamyelocytes) > 1% indicates that a LEFT SHIFT is Present. MCV (mean corpuscular volume ) determinationOrdered By: Melo Madison on 10-13-2024 MCV (RBC) [Entitic vol] 85.5 fL 80-94 [facility] Mean corpuscular hemoglobin (MCH) determinationOrdered By: Melo Madison on 10-13-2024 MCH (RBC) [Entitic mass] 26.6 pg Low 27.0-32.0 [facility] Mean corpuscular hemoglobin concentration (MCHC) determinationOrdered By: Melo Madison on 10-13-2024 MCHC (RBC) [Mass/Vol] 31.1 g/dL Low 32-36 [facility] Mean platelet volume determi nationOrdered By: Melo Madison on 10-13-2024 Platelet mean volume (Bld) [Entitic vol] 10.7 fL 6.2-12.0 [facility] Monocyte percentageOrdered B y: Melo Madison on 10-13-2024 Monocytes/100 WBC (Bld) 9.6 % 0-10 [facility] Neutrophil percentageOrdered By: Melo Madison on 10-13-2024 Neutrophils/100 WBC (Bld) 65.4 % 47-70 [facility] Nucleated red blood cell per centageOrdered By: Melo Madison on 10-13-2024 Nucleated RBC/100 WBC (Bld) [Ratio] 0 % 0-5 [facility] Platelet countOrdered By: Manuel Madison on 10-13-2024 Platelets (Bld) [#/Vol] 185 10*3/uL 150-450 [facility] RBC Auto (Bld) [#/Vol]Ordere d By: Melo Madison on 10-13-2024 RBC (Bld) [#/Vol] 4.82 10*6/uL 4.6-6.2 [facility] Serum creatinine measurement (mass/volume)Ordered By: Melo Madison on 10-13-2024 Creatinine [Mass/Vol] 1.08 mg/dL 0.70-1.20 [facility] Serum or plasma alanine joiner otransferase (ALT) measurementOrdered By: Melo Madison on 10-13-2024 ALT [Catalytic activity/Vol] 11 U/L <47 [facility] White blood cell (WBC) count Ordered By: Melo Madison on 10-13-2024 WBC (Bld) [#/Vol] 7.9 10*3/uL 4.4-11.0 [facility] Absolute lymphocyte countOrd ered By: Melo Madison on 10-06-2024 Lymphocytes Auto (Unsp spec) [#/Vol] 1.50 10*3/uL 0.83-4.51 [facility] Absolute neutrophil countOrd ered By: Melo Madison on 10-06-2024 Neutrophils (Bld) [#/Vol] 3.6 10*3/uL 2.0-7.7 [facility] Automated lymphocyte count a s percentage of total leukocytesOrdered By: Melo Madison on 10-06-2024 Lymphocytes/100 WBC Auto (Unsp spec) 25.0 % 19-41 [facility] Basophil percentageOrdered B y: Melo Madison on 10-06-2024 Basophils/100 WBC (Bld) 0.8 % 0-1 [facility] Eosinophil percentageOrdered By: Melo Madison on 10-06-2024 Eosinophils/100 WBC (Bld) 3.7 % 0-5 [facility] Erythrocyte distribution wid th ratioOrdered By: Melo Madison on 10-06-2024 Erythrocyte distribution width (RBC) [Ratio] 16.1 % High 11.6-14.6 [facility] Erythrocyte distribution wid th standard deviationOrdered By: Melo Madison on 10-06-2024 Erythrocyte distribution width (RBC) [Ratio] 48.1 fl High 35.1-43.9 [facility] Glomerular filtration rate ( GFR) estimation/1.73 sq m using serum, plasma, or whole bOrdered By: Melo Madison on 10-06-2024 GFR/1.73 sq M.predicted among non-blacks MDRD (S/P/Bld) [Vol rate/Area] 72 mL/min/{1.73_m2} >60 [facility] Comment on above: mL/min/1.73m2 CKD-EP I Creatinine Equation (2020) Hematocrit Auto (Bld) [Volum e fraction]Ordered By: Melo Madison on 10-06-2024 Hematocrit (Bld) [Volume fraction] 42.7 % 40-54 [facility] Hemoglobin measurementOrdere d By: Melo Madison on 10-06-2024 Hemoglobin (Bld) [Mass/Vol] 13.7 g/dL 13.0-16.5 [facility] Immature granulocytes/100 WB C Auto (Bld)Ordered By: Melo Madison on 10-06-2024 Immature granulocytes/100 WBC (Bld) 0.500 % 0.0-0.9 [facility] Comment on above: IG% - Immature Granu locytes (promyelocytes, myelocytes and metamyelocytes) > 1% indicates that a LEFT SHIFT is Present. MCV (mean corpuscular volume ) determinationOrdered By: Melo Madison on 10-06-2024 MCV (RBC) [Entitic vol] 82.0 fL 80-94 [facility] Mean corpuscular hemoglobin (MCH) determinationOrdered By: Melo Madison on 10-06-2024 MCH (RBC) [Entitic mass] 26.3 pg Low 27.0-32.0 [facility] Mean corpuscular hemoglobin concentration (MCHC) determinationOrdered By: Melo Madison on 10-06-2024 MCHC (RBC) [Mass/Vol] 32.1 g/dL 32-36 [facility] Mean platelet volume determi nationOrdered By: Melo Madison on 10-06-2024 Platelet mean volume (Bld) [Entitic vol] 10.8 fL 6.2-12.0 [facility] Monocyte percentageOrdered B y: Melo Madison on 10-06-2024 Monocytes/100 WBC (Bld) 10.8 % High 0-10 [facility] Neutrophil percentageOrdered By: Melo Madison on 10-06-2024 Neutrophils/100 WBC (Bld) 59.2 % 47-70 [facility] Nucleated red blood cell per centageOrdered By: Melo Madison on 10-06-2024 Nucleated RBC/100 WBC (Bld) [Ratio] 0 % 0-5 [facility] Platelet countOrdered By: Manuel Madison on 10-06-2024 Platelets (Bld) [#/Vol] 190 10*3/uL 150-450 [facility] RBC Auto (Bld) [#/Vol]Ordere d By: Melo Madison on 10-06-2024 RBC (Bld) [#/Vol] 5.21 10*6/uL 4.6-6.2 [facility] Serum creatinine measurement (mass/volume)Ordered By: Melo Madison on 10-06-2024 Creatinine [Mass/Vol] 1.12 mg/dL 0.70-1.20 [facility] Serum or plasma alanine joiner otransferase (ALT) measurementOrdered By: Melo Madison on 10-06-2024 ALT [Catalytic activity/Vol] 22 U/L <47 [facility] White blood cell (WBC) count Ordered By: Melo Madison on 10-06-2024 WBC (Bld) [#/Vol] 6.0 10*3/uL 4.4-11.0 [facility] Absolute lymphocyte countOrd ered By: Melo Madison on 2024 Lymphocytes Auto (Unsp spec) [#/Vol] 1.92 10*3/uL 0.83-4.51 [facility] Absolute neutrophil countOrd ered By: Melo Madison on 2024 Neutrophils (Bld) [#/Vol] 4.2 10*3/uL 2.0-7.7 [facility] Anion gap in Serum or Plasma Ordered By: Melo Mdaison on 2024 Anion gap [Moles/Vol] 10 mmol/L 5-15 [facility] Automated lymphocyte count a s percentage of total leukocytesOrdered By: Melo Madison on 2024 Lymphocytes/100 WBC Auto (Unsp spec) 26.9 % 19-41 [facility] BUN/creatinine ratioOrdered By: Melo Madison on 2024 Urea nitrogen/Creatinine [Mass ratio] 6.6 mg/mg Low 10-20 [facility] Basophil percentageOrdered B y: Melo Madison on 2024 Basophils/100 WBC (Bld) 0.6 % 0-1 [facility] Bilirubin, totalOrdered By: Melo Madison on 2024 Bilirubin [Mass/Vol] 0.46 mg/dL 0.00-1.30 [facility] Carbon dioxide, total [Moles /volume] in Central venous bloodOrdered By: Melo Madison on 2024 CO2 [Moles/Vol] 25.6 mmol/L 21.0-32.0 [facility] Chloride assayOrdered By: Manuel Madison on 2024 Chloride [Moles/Vol] 101 mmol/L 98-108 [facility] Eosinophil percentageOrdered By: Melo Madison on 2024 Eosinophils/100 WBC (Bld) 2.8 % 0-5 [facility] Erythrocyte distribution wid th ratioOrdered By: Melo Madison on 2024 Erythrocyte distribution width (RBC) [Ratio] 15.8 % High 11.6-14.6 [facility] Erythrocyte distribution wid th standard deviationOrdered By: Melo Madison on 2024 Erythrocyte distribution width (RBC) [Ratio] 46.6 fl High 35.1-43.9 [facility] Glomerular filtration rate ( GFR) estimation/1.73 sq m using serum, plasma, or whole bOrdered By: Melo Madison on 2024 GFR/1.73 sq M.predicted among non-blacks MDRD (S/P/Bld) [Vol rate/Area] 75 mL/min/{1.73_m2} >60 [facility] Comment on above: mL/min/1.73m2 CKD-EP I Creatinine Equation (2020) Hematocrit Auto (Bld) [Volum e fraction]Ordered By: Melo Madison on 2024 Hematocrit (Bld) [Volume fraction] 43.9 % 40-54 [facility] Hemoglobin measurementOrdere d By: Melo Madison on 2024 Hemoglobin (Bld) [Mass/Vol] 14.1 g/dL 13.0-16.5 [facility] Immature granulocytes/100 WB C Auto (Bld)Ordered By: eMlo Madison on 2024 Immature granulocytes/100 WBC (Bld) 0.400 % 0.0-0.9 [facility] Comment on above: IG% - Immature Granu locytes (promyelocytes, myelocytes and metamyelocytes) > 1% indicates that a LEFT SHIFT is Present. Laboratory - Chemistry and C hemistry - challengeOrdered By: Melo Madison on 2024 AST [Catalytic activity/Vol] 25 U/L <38 [facility] MCV (mean corpuscular volume ) determinationOrdered By: Melo Madison on 2024 MCV (RBC) [Entitic vol] 81.8 fL 80-94 [facility] Mean corpuscular hemoglobin (MCH) determinationOrdered By: Melo Madison on 2024 MCH (RBC) [Entitic mass] 26.3 pg Low 27.0-32.0 [facility] Mean corpuscular hemoglobin concentration (MCHC) determinationOrdered By: Melo Madison on 2024 MCHC (RBC) [Mass/Vol] 32.1 g/dL 32-36 [facility] Mean platelet volume determi nationOrdered By: Melo Madison on 2024 Platelet mean volume (Bld) [Entitic vol] 10.5 fL 6.2-12.0 [facility] Monocyte percentageOrdered B y: Melo Madison on 2024 Monocytes/100 WBC (Bld) 10.4 % High 0-10 [facility] Neutrophil percentageOrdered By: Melo Madison on 2024 Neutrophils/100 WBC (Bld) 58.9 % 47-70 [facility] Nucleated red blood cell per centageOrdered By: Melo Madison on 2024 Nucleated RBC/100 WBC (Bld) [Ratio] 0 % 0-5 [facility] Platelet countOrdered By: Manuel Madison on 2024 Platelets (Bld) [#/Vol] 194 10*3/uL 150-450 [facility] Potassium measurement (mass/ volume)Ordered By: Melo Madison on 2024 Potassium (Unsp spec) [Mass/Vol] 3.6 mmol/L 3.3-5.1 [facility] RBC Auto (Bld) [#/Vol]Ordere d By: Melo Madison on 2024 RBC (Bld) [#/Vol] 5.37 10*6/uL 4.6-6.2 [facility] Serum creatinine measurement (mass/volume)Ordered By: Melo Madison on 2024 Creatinine [Mass/Vol] 1.08 mg/dL 0.70-1.20 [facility] Serum globulin measurementOr dered By: Melo Madison on 2024 Globulin (S) [Mass/Vol] 3.5 g/dL 2.2-4.2 [facility] Serum glucose measurement (m ass/volume)Ordered By: Melo Madison on 2024 Glucose [Mass/Vol] 83 mg/dL 70-99 [facility] Serum or plasma alanine joiner otransferase (ALT) measurementOrdered By: Melo Madison on 2024 ALT [Catalytic activity/Vol] 18 U/L <47 [facility] Serum or plasma albumin wandy urement (mass/volume)Ordered By: Melo Madison on 2024 Albumin [Mass/Vol] 3.5 g/dL 3.4-4.8 [facility] Serum or plasma albumin/glob ulin mass ratioOrdered By: Melo Madison on 2024 Albumin/Globulin [Mass ratio] 1.0 {ratio} 0.9-2.4 [facility] Serum or plasma alkaline radha sphatase measurementOrdered By: Melo Madison on 2024 ALP [Catalytic activity/Vol] 123 U/L 40-129 [facility] Serum or plasma calcium wandy urement (mass/volume)Ordered By: Melo Madison on 2024 Calcium [Mass/Vol] 9.0 mg/dL 7.6-11.0 [facility] Serum or plasma urea nitroge n measurement (mass/volume)Ordered By: Melo Madison on 2024 Urea nitrogen [Mass/Vol] 7 mg/dL 4-19 [facility] Sodium levelOrdered By: Hugo Madison on 2024 Sodium [Moles/Vol] 137 mmol/L 133-145 [facility] Total proteinOrdered By: Lance Madison on 2024 Protein [Mass/Vol] 7.0 g/dL 5.9-8.4 [facility] White blood cell (WBC) count Ordered By: Melo Madison on 2024 WBC (Bld) [#/Vol] 7.1 10*3/uL 4.4-11.0 [facility] Anion gap in Serum or Plasma Ordered By: Melo Madison on 09-23-2024 Anion gap [Moles/Vol] 9 mmol/L 5-15 [facility] BUN/creatinine ratioOrdered By: Melo Madison on 09-23-2024 Urea nitrogen/Creatinine [Mass ratio] 9.5 mg/mg Low 10-20 [facility] Bilirubin directOrdered By: Melo Madison on 09-23-2024 Bilirubin.direct [Mass/Vol] 0.12 mg/dL 0.00-0.30 [facility] Comment on above: Hemolysis present, R esults could be affected. Bilirubin, totalOrdered By: Melo Madison on 09-23-2024 Bilirubin [Mass/Vol] 0.27 mg/dL 0.00-1.30 [facility] Carbon dioxide, total [Moles /volume] in Central venous bloodOrdered By: Melo Madison on 09-23-2024 CO2 [Moles/Vol] 27.2 mmol/L 21.0-32.0 [facility] Chloride assayOrdered By: Manuel Madison on 09-23-2024 Chloride [Moles/Vol] 101 mmol/L 98-108 [facility] Erythrocyte distribution wid th ratioOrdered By: Melo Madison on 09-23-2024 Erythrocyte distribution width (RBC) [Ratio] 15.5 % High 11.6-14.6 [facility] Erythrocyte distribution wid th standard deviationOrdered By: Melo Madison on 09-23-2024 Erythrocyte distribution width (RBC) [Ratio] 47.3 fl High 35.1-43.9 [facility] Glomerular filtration rate ( GFR) estimation/1.73 sq m using serum, plasma, or whole bOrdered By: Melo Madison on 04-08-2025 GFR/1.73 sq M.predicted among non-blacks MDRD (S/P/Bld) [Vol rate/Area] 76 mL/min/{1.73_m2} >60 [facility] Comment on above: mL/min/1.73m2 CKD-EP I Creatinine Equation (2020) Hematocrit Auto (Bld) [Volum e fraction]Ordered By: Melo Madison on 09-23-2024 Hematocrit (Bld) [Volume fraction] 42.4 % 40-54 [facility] Hemoglobin measurementOrdere d By: Melo Madison on 09-23-2024 Hemoglobin (Bld) [Mass/Vol] 13.1 g/dL 13.0-16.5 [facility] Laboratory - Chemistry and C hemistry - challengeOrdered By: Melo Madison on 09-23-2024 AST [Catalytic activity/Vol] 23 U/L <38 [facility] Comment on above: Hemolysis present, R esults could be affected. MCV (mean corpuscular volume ) determinationOrdered By: Melo Madison on 09-23-2024 MCV (RBC) [Entitic vol] 84.0 fL 80-94 [facility] Mean corpuscular hemoglobin (MCH) determinationOrdered By: Melo Madison on 09-23-2024 MCH (RBC) [Entitic mass] 25.9 pg Low 27.0-32.0 [facility] Mean corpuscular hemoglobin concentration (MCHC) determinationOrdered By: Melo Madison on 09-23-2024 MCHC (RBC) [Mass/Vol] 30.9 g/dL Low 32-36 [facility] Mean platelet volume determi nationOrdered By: Melo Madison on 09-23-2024 Platelet mean volume (Bld) [Entitic vol] 10.5 fL 6.2-12.0 [facility] Platelet countOrdered By: Manuel Madison on 09-23-2024 Platelets (Bld) [#/Vol] 250 10*3/uL 150-450 [facility] Potassium measurement (mass/ volume)Ordered By: Melo Madison on 09-23-2024 Potassium (Unsp spec) [Mass/Vol] 4.1 mmol/L 3.3-5.1 [facility] Comment on above: Hemolysis present, R esults could be affected. RBC Auto (Bld) [#/Vol]Ordere d By: Melo Madison on 09-23-2024 RBC (Bld) [#/Vol] 5.05 10*6/uL 4.6-6.2 [facility] Serum creatinine measurement (mass/volume)Ordered By: Melo Madison on 09-23-2024 Creatinine [Mass/Vol] 1.07 mg/dL 0.70-1.20 [facility] Serum globulin measurementOr dered By: Melo Madison on 09-23-2024 Globulin (S) [Mass/Vol] 3.5 g/dL 2.2-4.2 [facility] Serum glucose measurement (m ass/volume)Ordered By: Melo Madison on 09-23-2024 Glucose [Mass/Vol] 143 mg/dL High 70-99 [facility] Serum or plasma alanine joiner otransferase (ALT) measurementOrdered By: Melo Madison on 09-23-2024 ALT [Catalytic activity/Vol] 13 U/L <47 [facility] Serum or plasma albumin wandy urement (mass/volume)Ordered By: Melo Madison on 09-23-2024 Albumin [Mass/Vol] 3.2 g/dL Low 3.4-4.8 [facility] Serum or plasma albumin/glob ulin mass ratioOrdered By: Melo Madison on 09-23-2024 Albumin/Globulin [Mass ratio] 0.9 {ratio} 0.9-2.4 [facility] Serum or plasma alkaline radha sphatase measurementOrdered By: Melo Madison on 09-23-2024 ALP [Catalytic activity/Vol] 115 U/L 40-129 [facility] Serum or plasma calcium wandy urement (mass/volume)Ordered By: Melo Madison on 09-23-2024 Calcium [Mass/Vol] 8.8 mg/dL 7.6-11.0 [facility] Serum or plasma urea nitroge n measurement (mass/volume)Ordered By: Melo Madison on 09-23-2024 Urea nitrogen [Mass/Vol] 10 mg/dL 4-19 [facility] Sodium levelOrdered By: Hugo Madison on 09-23-2024 Sodium [Moles/Vol] 137 mmol/L 133-145 [facility] Total proteinOrdered By: Lance Madison on 09-23-2024 Protein [Mass/Vol] 6.6 g/dL 5.9-8.4 [facility] White blood cell (WBC) count Ordered By: Melo Madison on 09-23-2024 WBC (Bld) [#/Vol] 8.6 10*3/uL 4.4-11.0 [facility] Bacteria Wnd Culton 09-17-19 25 Bacteria identified Cx Nom (Wound) Abnormal [facility] Comment on above: Performed By: #### [phone] ####[facility]CL[facility] [id number] [address] STATES OF [facility] CNOVon 09-16-2024 CNOV Normal [facility] Absolute lymphocyte countOrd ered By: Melo Madison on 08-04-2024 Lymphocytes Auto (Unsp spec) [#/Vol] 2.20 10*3/uL 0.83-4.51 [facility] Absolute neutrophil countOrd ered By: Melo Madison on 08-04-2024 Neutrophils (Bld) [#/Vol] 7.0 10*3/uL 2.0-7.7 [facility] Albumin to globulin ratioOrd ered By: Melo Madison on 08-04-2024 Albumin/Globulin [Mass ratio] 0.9 {ratio} 0.9-2.4 [facility] Automated lymphocyte count a s percentage of total leukocytesOrdered By: Melo Madison on 08-04-2024 Lymphocytes/100 WBC Auto (Unsp spec) 20.5 % 19-41 [facility] Basophil percentageOrdered B y: Melo Madison on 08-04-2024 Basophils/100 WBC (Bld) 0.7 % 0-1 [facility] Bilirubin directOrdered By: Melo Madison on 08-04-2024 Bilirubin.direct [Mass/Vol] 0.09 mg/dL 0.00-0.30 [facility] Bilirubin, totalOrdered By: Melo Madison on 08-04-2024 Bilirubin [Mass/Vol] 0.30 mg/dL 0.20-1.00 [facility] Comment on above: For patients on eltr ombopag therapy, use of Dimension [place] TBIL is not recommended. Blood urea nitrogen (BUN)/cr eatinine ratioOrdered By: Melo Madison on 08-04-2024 Urea nitrogen/Creatinine [Mass ratio] 14.5 mg/mg 10-20 [facility] C-reactive protein measureme nt by high sensitivity methodOrdered By: Melo Madison on 08-04-2024 C-reactive protein measurement by high sensitivity method 6.88 mg/L High 0.0-3.0 [facility] Comment on above: C-Reactive Protein ( CRP) provides useful information for thediagnosis, therapy and monitoring of inflammatory processesand associated diseases. For the evaluation of Relative Riskfor Cardiovascular Disease, a High Sensitivity CRP (HSCRP)should be ordered. Carbon dioxide measurementOr dered By: Melo Madison on 08-04-2024 CO2 [Moles/Vol] 29.0 mmol/L 21.0-32.0 [facility] Chloride measurementOrdered By: Melo Madison on 08-04-2024 Chloride [Moles/Vol] 105 mmol/L 98-107 [facility] Eosinophil percentageOrdered By: Melo Madison on 08-04-2024 Eosinophils/100 WBC (Bld) 3.3 % 0-5 [facility] Erythrocyte distribution wid th ratioOrdered By: Melo Madison on 08-04-2024 Erythrocyte distribution width (RBC) [Ratio] 15.3 % High 11.6-14.6 [facility] Erythrocyte distribution wid th standard deviationOrdered By: Melo Madison on 08-04-2024 Erythrocyte distribution width (RBC) [Ratio] 48.8 fl High 35.1-43.9 [facility] Erythrocyte sedimentation ra teOrdered By: Melo Madison on 08-04-2024 ESR (Bld) [Velocity] 19 mm/h 0-20 [facility] Glomerular filtration rate ( GFR) estimationOrdered By: Melo Madison on 08-04-2024 GFR/1.73 sq M.predicted among non-blacks MDRD (S/P/Bld) [Vol rate/Area] 90 mL/min/{1.73_m2} >60 [facility] Comment on above: Non- GFR Calc Glucose measurementOrdered B y: Melo Madison on 08-04-2024 Glucose [Mass/Vol] 99 mg/dL 74-106 [facility] Hematocrit Auto (Bld) [Volum e fraction]Ordered By: Melo Madison on 08-04-2024 Hematocrit (Bld) [Volume fraction] 40.0 % 40-54 [facility] Hemoglobin measurementOrdere d By: Melo Madison on 08-04-2024 Hemoglobin (Bld) [Mass/Vol] 12.6 g/dL Low 13.0-16.5 [facility] High density lipoprotein (HD L) measurementOrdered By: Melo Madison on 08-04-2024 Cholesterol in HDL [Mass/Vol] 54 mg/dL >40 [facility] Comment on above: The drugs N-Acetylcy steine and Metamizole may falsely depress this assay. Reference Range HDL <40 mg/dL Low HDL Cholesterol HDL >or= 60 mg/dL High HDL Cholesterol Immature granulocytes/100 WB C Auto (Bld)Ordered By: Melo Madison on 08-04-2024 Immature granulocytes/100 WBC (Bld) 0.700 % 0.0-0.9 [facility] Comment on above: IG% - Immature Granu locytes (promyelocytes, myelocytes and metamyelocytes) > 1% indicates that a LEFT SHIFT is Present. Laboratory - Chemistry and C hemistry - challengeOrdered By: Melo Madison on 08-04-2024 AST [Catalytic activity/Vol] 18 U/L 15-37 [facility] Low density lipoprotein (LDL ) cholesterol measurementOrdered By: Melo Madison on 08-04-2024 Cholesterol in LDL [Mass/Vol] 29 mg/dL 0-130 [facility] MCV (mean corpuscular volume ) determinationOrdered By: Melo Madison on 08-04-2024 MCV (RBC) [Entitic vol] 87.3 fL 80-94 [facility] Mean corpuscular hemoglobin (MCH) determinationOrdered By: Melo Madison on 08-04-2024 MCH (RBC) [Entitic mass] 27.5 pg 27.0-32.0 [facility] Mean corpuscular hemoglobin concentration (MCHC) determinationOrdered By: Melo Madison on 08-04-2024 MCHC (RBC) [Mass/Vol] 31.5 g/dL Low 32-36 [facility] Mean platelet volume determi nationOrdered By: Melo Madison on 08-04-2024 Platelet mean volume (Bld) [Entitic vol] 11.4 fL 6.2-12.0 [facility] Monocyte percentageOrdered B y: Melo Madison on 08-04-2024 Monocytes/100 WBC (Bld) 9.3 % 0-10 [facility] Neutrophil percentageOrdered By: Melo Madison on 08-04-2024 Neutrophils/100 WBC (Bld) 65.5 % 47-70 [facility] Nucleated red blood cell per centageOrdered By: Melo Madison on 08-04-2024 Nucleated RBC/100 WBC (Bld) [Ratio] 0 % 0-5 [facility] Platelet countOrdered By: Manuel Madison on 08-04-2024 Platelets (Bld) [#/Vol] 177 10*3/uL 150-450 [facility] Potassium measurementOrdered By: Melo Madison on 08-04-2024 Potassium [Moles/Vol] 4.3 mmol/L 3.5-5.1 [facility] RBC Auto (Bld) [#/Vol]Ordere d By: Melo Madison on 08-04-2024 RBC (Bld) [#/Vol] 4.58 10*6/uL Low 4.6-6.2 [facility] Serum anion gap measurementO rdered By: Melo Madison on 08-04-2024 Anion gap [Moles/Vol] 7 mmol/L 5-15 [facility] Serum globulin measurementOr dered By: Melo Madison on 08-04-2024 Globulin (S) [Mass/Vol] 3.1 g/dL 2.2-4.2 [facility] Serum or plasma alanine joiner otransferase (ALT) measurementOrdered By: Melo Madison on 08-04-2024 ALT [Catalytic activity/Vol] 27 U/L 16-61 [facility] Serum or plasma albumin wandy urement (mass/volume)Ordered By: Melo Madison on 08-04-2024 Albumin [Mass/Vol] 2.8 g/dL Low 3.2-5.0 [facility] Serum or plasma alkaline radha sphatase measurementOrdered By: Melo Madison on 08-04-2024 ALP [Catalytic activity/Vol] 111 U/L 45-117 [facility] Serum or plasma calcium wandy urement (mass/volume)Ordered By: Melo Madison on 08-04-2024 Calcium [Mass/Vol] 8.6 mg/dL 8.5-10.1 [facility] Serum or plasma cholesterol measurement (mass/volume)Ordered By: Melo Madison on 08-04-2024 Cholesterol [Mass/Vol] 117 mg/dL <200 [facility] Comment on above: <200 mg/dL Desirable 200-240 mg/dL Borderline >240 mg/dL High Risk Serum or plasma creatinine m easurement (mass/volume)Ordered By: Melo Madison on 08-04-2024 Creatinine [Mass/Vol] 0.90 mg/dL 0.70-1.30 [facility] Comment on above: The validity of the calculated GFR & GFRAA in patients over 70 years has not been determined. Clinical correlation is essential. Serum or plasma urea nitroge n measurement (mass/volume)Ordered By: Melo Madison on 08-04-2024 Urea nitrogen [Mass/Vol] 13 mg/dL 7-18 [facility] Sodium levelOrdered By: Hugo Madison on 08-04-2024 Sodium [Moles/Vol] 141 mmol/L 136-145 [facility] Total proteinOrdered By: Lance Madison on 08-04-2024 Protein [Mass/Vol] 5.9 g/dL Low 6.4-8.2 [facility] Triglycerides measurementOrd ered By: Melo Madison on 08-04-2024 Triglyceride [Mass/Vol] 170 mg/dL <199 [facility] Comment on above: The drugs N-Acetylcy steine and Metamizole may falsely depress this assay.Serum Triglycerides Reference Interval Normal <150 mg/dL Borderline high 150 - 199 mg/dL High 200 - 499 mg/dL Very High > or = 500 mg/dL Very low density lipoprotein (VLDL) cholesterol measurementOrdered By: Melo Madison on 08-04-2024 Very low density lipoprotein (VLDL) cholesterol measurement 34 mg/dL 5-40 [facility] White blood cell (WBC) count Ordered By: Melo Madison on 08-04-2024 WBC (Bld) [#/Vol] 10.7 10*3/uL 4.4-11.0 [facility] Absolute lymphocyte countOrd ered By: Melo Madison on 07-29-2024 Lymphocytes Auto (Unsp spec) [#/Vol] 1.95 10*3/uL 0.83-4.51 [facility] Absolute neutrophil countOrd ered By: Melo Madison on 07-29-2024 Neutrophils (Bld) [#/Vol] 5.6 10*3/uL 2.0-7.7 [facility] Automated lymphocyte count a s percentage of total leukocytesOrdered By: Melo Madison on 07-29-2024 Lymphocytes/100 WBC Auto (Unsp spec) 22.4 % 19-41 [facility] Basophil percentageOrdered B y: Melo Madison on 07-29-2024 Basophils/100 WBC (Bld) 0.8 % 0-1 [facility] Bilirubin directOrdered By: Melo Madison on 07-29-2024 Bilirubin.direct [Mass/Vol] 0.10 mg/dL 0.00-0.30 [facility] Bilirubin, totalOrdered By: Melo Madison on 07-29-2024 Bilirubin [Mass/Vol] 0.40 mg/dL 0.20-1.00 [facility] Comment on above: For patients on eltr ombopag therapy, use of Dimension [place] TBIL is not recommended. Eosinophil percentageOrdered By: Melo Madison on 07-29-2024 Eosinophils/100 WBC (Bld) 2.1 % 0-5 [facility] Erythrocyte distribution wid th ratioOrdered By: Melo Madison on 07-29-2024 Erythrocyte distribution width (RBC) [Ratio] 15.4 % High 11.6-14.6 [facility] Erythrocyte distribution wid th standard deviationOrdered By: Melo Madison on 07-29-2024 Erythrocyte distribution width (RBC) [Ratio] 48.7 fl High 35.1-43.9 [facility] Glomerular filtration rate ( GFR) estimationOrdered By: Melo Madison on 07-29-2024 GFR/1.73 sq M.predicted among non-blacks MDRD (S/P/Bld) [Vol rate/Area] 80 mL/min/{1.73_m2} >60 [facility] Comment on above: Non- GFR Calc Hematocrit Auto (Bld) [Volum e fraction]Ordered By: Melo Madison on 07-29-2024 Hematocrit (Bld) [Volume fraction] 40.7 % 40-54 [facility] Hemoglobin measurementOrdere d By: Melo Madison on 07-29-2024 Hemoglobin (Bld) [Mass/Vol] 12.7 g/dL Low 13.0-16.5 [facility] Immature granulocytes/100 WB C Auto (Bld)Ordered By: Melo Madison on 07-29-2024 Immature granulocytes/100 WBC (Bld) 0.600 % 0.0-0.9 [facility] Comment on above: IG% - Immature Granu locytes (promyelocytes, myelocytes and metamyelocytes) > 1% indicates that a LEFT SHIFT is Present. Laboratory - Chemistry and C hemistry - challengeOrdered By: Melo Madison on 07-29-2024 AST [Catalytic activity/Vol] 19 U/L 15-37 [facility] MCV (mean corpuscular volume ) determinationOrdered By: Melo Madison on 07-29-2024 MCV (RBC) [Entitic vol] 86.4 fL 80-94 [facility] Mean corpuscular hemoglobin (MCH) determinationOrdered By: Melo Madison on 07-29-2024 MCH (RBC) [Entitic mass] 27.0 pg 27.0-32.0 [facility] Mean corpuscular hemoglobin concentration (MCHC) determinationOrdered By: Melo Madison on 07-29-2024 MCHC (RBC) [Mass/Vol] 31.2 g/dL Low 32-36 [facility] Mean platelet volume determi nationOrdered By: Melo Madison on 07-29-2024 Platelet mean volume (Bld) [Entitic vol] 11.2 fL 6.2-12.0 [facility] Monocyte percentageOrdered B y: Melo Madison on 07-29-2024 Monocytes/100 WBC (Bld) 9.8 % 0-10 [facility] Neutrophil percentageOrdered By: Melo Madison on 07-29-2024 Neutrophils/100 WBC (Bld) 64.3 % 47-70 [facility] Nucleated red blood cell per centageOrdered By: Melo Madison on 07-29-2024 Nucleated RBC/100 WBC (Bld) [Ratio] 0 % 0-5 [facility] Platelet countOrdered By: Manuel Madison on 07-29-2024 Platelets (Bld) [#/Vol] 207 10*3/uL 150-450 [facility] RBC Auto (Bld) [#/Vol]Ordere d By: Melo Madison on 07-29-2024 RBC (Bld) [#/Vol] 4.71 10*6/uL 4.6-6.2 [facility] Serum globulin measurementOr dered By: Melo Madison on 07-29-2024 Globulin (S) [Mass/Vol] 3.6 g/dL 2.2-4.2 [facility] Serum or plasma alanine joiner otransferase (ALT) measurementOrdered By: Melo Madison on 07-29-2024 ALT [Catalytic activity/Vol] 27 U/L 16-61 [facility] Serum or plasma albumin wandy urement (mass/volume)Ordered By: Melo Madison on 07-29-2024 Albumin [Mass/Vol] 2.8 g/dL Low 3.2-5.0 [facility] Serum or plasma alkaline radha sphatase measurementOrdered By: Melo Madison on 07-29-2024 ALP [Catalytic activity/Vol] 109 U/L 45-117 [facility] Serum or plasma creatinine m easurement (mass/volume)Ordered By: Melo Madison on 07-29-2024 Creatinine [Mass/Vol] 0.99 mg/dL 0.70-1.30 [facility] Comment on above: The validity of the calculated GFR & GFRAA in patients over 70 years has not been determined. Clinical correlation is essential. Total proteinOrdered By: Lance Madison on 07-29-2024 Protein [Mass/Vol] 6.4 g/dL 6.4-8.2 [facility] White blood cell (WBC) count Ordered By: Melo Madison on 07-29-2024 WBC (Bld) [#/Vol] 8.7 10*3/uL 4.4-11.0 [facility] CNOVon 07-25-2024 CNOV Office Visit (VASSMD ) MITUL OAKES ([id number]) 1955 M Date Time Provider Department 07/25/24 11:10 AM DARI ESPARZA VASSMD During your visit today, we recorded the following information about you: Pulse Blood pressure 65/minute 132/76 Dari Esparza, 07/25/2024 12:15 PM Signed [facility] DEPARTMENT OF VASCULAR SURGERY OUTPATIENT VISIT DATE July 25, 2024 OUTPATIENT VISIT TYPE ESTABLISHED SERVICE DATE: 07/25/2024 SERVICE TIME: 11:32 AM PRIMARY CARE PHYSICIAN: [facility] HISTORY OF PRESENT ILLNESS: Mr. Oakes is a 68 year old male who presents today for a vascular surgery follow-up visit for peripheral arterial disease. He has a history of angiogram with Dr. Lucas in May for left toe wound He had balloon angioplasty of distal left superficial femoral artery with 5x60mm mustang balloon and 6x80mm DCB (Inpact) at [facility] for SFA occlusion noted on CTA. 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 He continues to follow with [facility]. 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 No past medical history on file. PAST SURGICAL HISTORY Procedure Laterality Date APPENDECTOMY HX 83 COLSC FLX W/RMVL OF TUMOR POLYP LESION SNARE TQ 06/21/2015 SOCIAL HISTORY Social History Tobacco Use Smoking status: Heavy Smoker Current packs/day: 3.00 Average packs/day: 3.0 packs/day for 49.2 years (147.6 ttl pk-yrs) Types: Cigarettes Start date: 05/10/1975 MEDICATIONS: potassium chloride SR (MICRO-K) 10 mEq CR capsule Take 10 mEq by mouth once daily. pantoprazole DR (PROTONIX) 40 mg tablet Take 40 mg by mouth two times a day. sodium chlor-hypochlorous acid (VASHE) 0.033 % irsl Irrigate as instructed as directed. With each wound care dressing change doxycycline hyclate (VIBRAMYCIN) 100 mg capsule Take 100 mg by mouth two times a day. ondansetron (ZOFRAN) 4 mg tablet Take 4 mg by mouth every 8 hours as needed for nausea/vomiting. vancomycin 500 mg/100 mL IVPB Inject 500 mg intravenously every 12 hours. Per family - not on Aug but should go through 06/27/2024 (Patient not taking: Reported on 07/10/2024) ertapenem sodium (ERTAPENEM INTRAVENOUS) Inject 1 g intravenously once daily. Per family should stop 06/28/2024 (Patient not taking: Reported on 07/10/2024) oxyCODONE IR (ROXICODONE) 30 mg immediate release tablet Take 30 mg by mouth every 6 hours as needed for pain. aspirin, enteric coated (ASPIRIN, ENTERIC COATED) 81 mg EC tablet Take 81 mg by mouth once daily. atorvastatin (LIPITOR) 80 mg tablet Take 1 tablet by mouth once daily. ftvewhecwf-lynmxovv-g ormoterol (BREZTRI) 160-9-4.8 mcg/actuation HFA aerosol inhaler Inhale 2 Puffs as instructed two times a day. buPROPion XL (WELLBUTRIN XL) 150 mg 24 hr tablet Take 1 tablet by mouth every morning. insulin glargine-yfgn (SEMGLEE) 100 unit/mL (3 mL) insulin pen Inject 25 Units subcutaneously two times a day. isosorbide mononitrate ER (IMDUR) 30 mg 24 hr tablet Take 30 mg by mouth. Pregabalin (LYRICA) 200 mg capsule Take 1 capsule by mouth three times a day. rivaroxaban (XARELTO) 2.5 mg tablet Take 2.5 mg by mouth two times a day. semaglutide (OZEMPIC) 2 mg/dose (8 mg/3 mL) pen injector Inject 2 mg subcutaneously one time a week. spironolactone (ALDACTONE) 25 mg tablet Take 0.5 tablets by mouth once daily. torsemide (DEMADEX) 20 mg tablet Take 1 tablet by mouth every morning. [place]-3 Fatty Acids-Vitamin E (FISH OIL) 1,000 mg cap Take 1 capsule by mouth. carvedilol (COREG) 25 mg tablet Take 25 mg by mouth twice daily with meals. vitamin D3-vitamin K2, MK4, 1,000-100 unit-mcg tab Take by mouth. ALLERGIES: ALLERGIES Allergen Reactions Heparin Other: See Comments HIIT New pt to [facility] on 05/23/24. 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, caused right BKA Amitryptyline [Justin* Itching Per patient PHYSICAL EXAM: There were no vitals taken for this visit. General: no distress Ext- right below knee amputation- healed wounds and incisions, tender laterally to touch, no erythema noted; left leg great toe amputation site healed, dorsal foot wound- collagen in wound base, distal second toe tip dry Left calf measurement- 44cm Diagnostic tests reviewed for today's visit: Most recent labs Most recent imaging PVRs- L-0.82, mild disease at rest ([facility] Arterial Duplex-LEFT SIDE External iliac artery, Common femoral artery, Profunda femoral artery, Popliteal artery and Tibioperoneal trunk : plaque noted without evidence of hemodynamically significant stenosis . Superfic (more content not included)... Normal [facility] Absolute lymphocyte countOrd ered By: Melo Madison on 07-21-2024 Lymphocytes Auto (Unsp spec) [#/Vol] 1.48 10*3/uL 0.83-4.51 [facility] Absolute neutrophil countOrd ered By: Melo Madison on 07-21-2024 Neutrophils (Bld) [#/Vol] 4.5 10*3/uL 2.0-7.7 [facility] Albumin to globulin ratioOrd ered By: Melo Madison on 07-21-2024 Albumin/Globulin [Mass ratio] 0.8 {ratio} Low 0.9-2.4 [facility] Automated lymphocyte count a s percentage of total leukocytesOrdered By: Melo Madison on 07-21-2024 Lymphocytes/100 WBC Auto (Unsp spec) 21.6 % 19-41 [facility] Basophil percentageOrdered B y: Melo Madison on 07-21-2024 Basophils/100 WBC (Bld) 0.9 % 0-1 [facility] Bilirubin, totalOrdered By: Melo Madison on 07-21-2024 Bilirubin [Mass/Vol] 0.40 mg/dL 0.20-1.00 [facility] Comment on above: For patients on eltr ombopag therapy, use of Dimension [place] TBIL is not recommended. Blood urea nitrogen (BUN)/cr eatinine ratioOrdered By: Melo Madison on 07-21-2024 Urea nitrogen/Creatinine [Mass ratio] 9.5 mg/mg Low 10-20 [facility] Carbon dioxide measurementOr dered By: Melo Madison on 07-21-2024 CO2 [Moles/Vol] 26.0 mmol/L 21.0-32.0 [facility] Chloride measurementOrdered By: Melo Madison on 07-21-2024 Chloride [Moles/Vol] 106 mmol/L 98-107 [facility] Eosinophil percentageOrdered By: Melo Madison on 07-21-2024 Eosinophils/100 WBC (Bld) 1.8 % 0-5 [facility] Erythrocyte distribution wid th ratioOrdered By: Melo Madison on 07-21-2024 Erythrocyte distribution width (RBC) [Ratio] 15.3 % High 11.6-14.6 [facility] Erythrocyte distribution wid th standard deviationOrdered By: Melo Madison on 07-21-2024 Erythrocyte distribution width (RBC) [Ratio] 48.6 fl High 35.1-43.9 [facility] Erythrocyte sedimentation ra teOrdered By: Melo Madison on 07-21-2024 ESR (Bld) [Velocity] 12 mm/h 0-20 [facility] Glomerular filtration rate ( GFR) estimationOrdered By: Melo Madison on 07-21-2024 GFR/1.73 sq M.predicted among non-blacks MDRD (S/P/Bld) [Vol rate/Area] 84 mL/min/{1.73_m2} >60 [facility] Comment on above: Non- GFR Calc Glucose measurementOrdered B y: Melo Madison on 07-21-2024 Glucose [Mass/Vol] 174 mg/dL High 74-106 [facility] Comment on above: Fasting Glucose resu lt greater than or equal to 126 mg/dL suggests DIABETES MELLITUS per A.D.A. criteria. Hematocrit Auto (Bld) [Volum e fraction]Ordered By: Melo Madison on 07-21-2024 Hematocrit (Bld) [Volume fraction] 36.9 % Low 40-54 [facility] Hemoglobin measurementOrdere d By: Melo Madison on 07-21-2024 Hemoglobin (Bld) [Mass/Vol] 11.7 g/dL Low 13.0-16.5 [facility] High density lipoprotein (HD L) measurementOrdered By: Melo Madison on 07-21-2024 Cholesterol in HDL [Mass/Vol] 48 mg/dL >40 [facility] Comment on above: The drugs N-Acetylcy steine and Metamizole may falsely depress this assay. Reference Range HDL <40 mg/dL Low HDL Cholesterol HDL >or= 60 mg/dL High HDL Cholesterol Immature granulocytes/100 WB C Auto (Bld)Ordered By: Melo Madison on 07-21-2024 Immature granulocytes/100 WBC (Bld) 0.600 % 0.0-0.9 [facility] Comment on above: IG% - Immature Granu locytes (promyelocytes, myelocytes and metamyelocytes) > 1% indicates that a LEFT SHIFT is Present. International normalized rat io (INR) calculationOrdered By: Melo Madison on 07-21-2024 INR Coag (Bld) [Relative time] 1.1 {INR} [facility] Laboratory - Chemistry and C hemistry - challengeOrdered By: Melo Madison on 07-21-2024 AST [Catalytic activity/Vol] 18 U/L 15-37 [facility] Comment on above: Moderate Hemolysis, Result may be falsely increased. Low density lipoprotein (LDL ) cholesterol measurementOrdered By: Melo Madison on 07-21-2024 Cholesterol in LDL [Mass/Vol] 35 mg/dL 0-130 [facility] MCV (mean corpuscular volume ) determinationOrdered By: Melo Madison on 07-21-2024 MCV (RBC) [Entitic vol] 87.0 fL 80-94 [facility] Mean corpuscular hemoglobin (MCH) determinationOrdered By: Melo Madison on 07-21-2024 MCH (RBC) [Entitic mass] 27.6 pg 27.0-32.0 [facility] Mean corpuscular hemoglobin concentration (MCHC) determinationOrdered By: Melo Madison on 07-21-2024 MCHC (RBC) [Mass/Vol] 31.7 g/dL Low 32-36 [facility] Mean platelet volume determi nationOrdered By: Melo Madison on 07-21-2024 Platelet mean volume (Bld) [Entitic vol] 10.9 fL 6.2-12.0 [facility] Monocyte percentageOrdered B y: Melo Madison on 07-21-2024 Monocytes/100 WBC (Bld) 9.9 % 0-10 [facility] Neutrophil percentageOrdered By: Melo Madison on 07-21-2024 Neutrophils/100 WBC (Bld) 65.2 % 47-70 [facility] Nucleated red blood cell per centageOrdered By: Melo Madison on 07-21-2024 Nucleated RBC/100 WBC (Bld) [Ratio] 0 % 0-5 [facility] Platelet countOrdered By: Manuel Madison on 07-21-2024 Platelets (Bld) [#/Vol] 232 10*3/uL 150-450 [facility] Potassium measurementOrdered By: Melo Madison on 07-21-2024 Potassium [Moles/Vol] 3.6 mmol/L 3.5-5.1 [facility] Comment on above: Moderate Hemolysis, Result may be falsely increased. Prothrombin timeOrdered By: Melo Madison on 07-21-2024 PT Coag (PPP) [Time] 14.4 s 11.7-14.9 [facility] RBC Auto (Bld) [#/Vol]Ordere d By: Melo Madison on 07-21-2024 RBC (Bld) [#/Vol] 4.24 10*6/uL Low 4.6-6.2 [facility] Serum anion gap measurementO rdered By: Melo Madison on 07-21-2024 Anion gap [Moles/Vol] 11 mmol/L 5-15 [facility] Serum globulin measurementOr dered By: Melo Madison on 07-21-2024 Globulin (S) [Mass/Vol] 3.1 g/dL 2.2-4.2 [facility] Serum or plasma alanine joiner otransferase (ALT) measurementOrdered By: Melo Madison on 07-21-2024 ALT [Catalytic activity/Vol] 23 U/L 16-61 [facility] Serum or plasma albumin wandy urement (mass/volume)Ordered By: Melo Madison on 07-21-2024 Albumin [Mass/Vol] 2.6 g/dL Low 3.2-5.0 [facility] Serum or plasma alkaline radha sphatase measurementOrdered By: Melo Madison on 07-21-2024 ALP [Catalytic activity/Vol] 97 U/L 45-117 [facility] Serum or plasma calcium wandy urement (mass/volume)Ordered By: Melo Madison on 07-21-2024 Calcium [Mass/Vol] 8.2 mg/dL Low 8.5-10.1 [facility] Serum or plasma cholesterol measurement (mass/volume)Ordered By: Melo Madison on 07-21-2024 Cholesterol [Mass/Vol] 122 mg/dL <200 [facility] Comment on above: <200 mg/dL Desirable 200-240 mg/dL Borderline >240 mg/dL High Risk Serum or plasma creatinine m easurement (mass/volume)Ordered By: Melo Madison on 07-21-2024 Creatinine [Mass/Vol] 0.95 mg/dL 0.70-1.30 [facility] Comment on above: The validity of the calculated GFR & GFRAA in patients over 70 years has not been determined. Clinical correlation is essential. Serum or plasma trough vanco mycin levelOrdered By: Melo Madison on 07-21-2024 Vancomycin trough [Mass/Vol] ug/mL Low 5.0-15.0 [facility] Comment on above: VANCOMYCIN STANDARED DRUG THERAPY TROUGH LEVEL: 5.0 - 15.0 mg/L VANCOMYCIN HIGH INTENSITY THERAPY TROUGH LEVEL: 15.0 - 20.0 mg/L High Intensity therapy recommended for serious lifethreatening infections include:- Palyjwyyuo-Jxditruljmxi-Crxymfqlj (Ventilator/Healtcare Associated)-Sepsis PLEASE CONTACT PHARMACY SERVICES (#[id number]) FOR INTERPRETATIONOF RESULTS. Serum or plasma urea nitroge n measurement (mass/volume)Ordered By: Melo Madison on 07-21-2024 Urea nitrogen [Mass/Vol] 9 mg/dL 7-18 [facility] Sodium levelOrdered By: Hugo Madison on 07-21-2024 Sodium [Moles/Vol] 142 mmol/L 136-145 [facility] Total proteinOrdered By: Lance Madison on 07-21-2024 Protein [Mass/Vol] 5.7 g/dL Low 6.4-8.2 [facility] Triglycerides measurementOrd ered By: Melo Madison on 07-21-2024 Triglyceride [Mass/Vol] 197 mg/dL <199 [facility] Comment on above: The drugs N-Acetylcy steine and Metamizole may falsely depress this assay.Serum Triglycerides Reference Interval Normal <150 mg/dL Borderline high 150 - 199 mg/dL High 200 - 499 mg/dL Very High > or = 500 mg/dL Very low density lipoprotein (VLDL) cholesterol measurementOrdered By: Melo Madison on 07-21-2024 Very low density lipoprotein (VLDL) cholesterol measurement 39 mg/dL 5-40 [facility] White blood cell (WBC) count Ordered By: Melo Madison on 07-21-2024 WBC (Bld) [#/Vol] 6.9 10*3/uL 4.4-11.0 [facility] CNOVon 07-15-[address] [facility] Erythrocyte distribution wid th ratioOrdered By: Melo Madison on 07-15-2024 Erythrocyte distribution width (RBC) [Ratio] 15.1 % High 11.6-14.6 [facility] Erythrocyte distribution wid th standard deviationOrdered By: Melo Madison on 07-15-2024 Erythrocyte distribution width (RBC) [Ratio] 47.7 fl High 35.1-43.9 [facility] Hematocrit Auto (Bld) [Volum e fraction]Ordered By: Melo Madison on 07-15-2024 Hematocrit (Bld) [Volume fraction] 35.9 % Low 40-54 [facility] Hemoglobin measurementOrdere d By: Melo Madison on 07-15-2024 Hemoglobin (Bld) [Mass/Vol] 11.2 g/dL Low 13.0-16.5 [facility] International normalized rat io (INR) calculationOrdered By: Melo Madison on 07-15-2024 INR Coag (Bld) [Relative time] 1.2 {INR} [facility] MCV (mean corpuscular volume ) determinationOrdered By: Melo Madison on 07-15-2024 MCV (RBC) [Entitic vol] 86.3 fL 80-94 [facility] Mean corpuscular hemoglobin (MCH) determinationOrdered By: Melo Madison on 07-15-2024 MCH (RBC) [Entitic mass] 26.9 pg Low 27.0-32.0 [facility] Mean corpuscular hemoglobin concentration (MCHC) determinationOrdered By: Melo Madison on 07-15-2024 MCHC (RBC) [Mass/Vol] 31.2 g/dL Low 32-36 [facility] Mean platelet volume determi nationOrdered By: Melo Madison on 07-15-2024 Platelet mean volume (Bld) [Entitic vol] 11.0 fL 6.2-12.0 [facility] PVR ANK PRESS GRACIELA VAS LABon 07-15-2024 PVR ANK PRESS GRACIELA VAS LAB Non-Invasive Vascular Laboratory [facility] Lower Extremity Arterial Physiology Study Unilateral - Left Date of service/time: 07/15/2024 12:24:09 PM Name: MITUL OAKES Date of : 1955 Age: 68 years Gender: M Medical History Tobacco: Current Coronary disease: Yes History of abdominal aortic aneurysm: Yes PAD: Yes Hypertension: Yes Diabetes: Yes Prior deep vein thrombosis: Yes Clinical Indication Leg/foot ulceration and Status post left distal superficial femoral artery angioplasty 06/02/2024. TECHNIQUE -------- An arterial physiological examination was performed, including measurement of blood pressures using continuous wave Doppler and recording of plethysmographic with or without Doppler waveforms at the below-mentioned limb segments. FINDINGS -------- RIGHT SIDE AT REST Right Pressures Brachial: 153 mmHg LEFT SIDE AT REST Left Doppler Waveforms Dorsalis pedis: Monophasic. Post tibial: Monophasic. Left Pressures Brachial: 143 mmHg Ankle dorsalis pedis: 126 mmHg JACKELYN: 0.82 Ankle posterior tibial: 121 mmHg JACKELYN: 0.79 Left PVR Waveforms Ankle: Mildly dampened. IMPRESSION RIGHT SIDE Resting right ankle brachial index: Below knee amputation. LEFT SIDE Resting left ankle brachial index: 0.82 Abnormal ankle brachial index at rest diagnostic of peripheral artery disease. Left ankle: Mild disease at rest. Technologist: Silva White RVT Ordering physician: MARSHA LUCAS Interpreting physician: Yosef Ortega MD Final CC [facility] Image : [id number] amicsSISUID See Link below for Image Normal [facility] Platelet countOrdered By: Manuel Madison on 07-15-2024 Platelets (Bld) [#/Vol] 219 10*3/uL 150-450 [facility] Prothrombin timeOrdered By: Melo Madison on 07-15-2024 PT Coag (PPP) [Time] 14.9 s 11.7-14.9 [facility] RBC Auto (Bld) [#/Vol]Ordere d By: Melo Madison on 07-15-2024 RBC (Bld) [#/Vol] 4.16 10*6/uL Low 4.6-6.2 [facility] LEG ARTERIAL PERIPH UNL V LABon 07-15-2024 LEG ARTERIAL PERIPH UNL VAS LAB Non-Invasive Vascular Laboratory [facility] Lower Extremity Arterial Duplex Unilateral - Left Date of service/time: 07/15/2024 12:23:47 PM Name: MITUL OAKES Date of : 1955 Age: 68 years Gender: M Medical History Tobacco: Current Coronary disease: Yes History of abdominal aortic aneurysm: Yes PAD: Yes Hypertension: Yes Prior deep vein thrombosis: Yes Clinical Indication Status post left distal superficial femoral artery angioplasty 06/02/2024. and leg/foot ulceration. TECHNIQUE -------- An arterial duplex ultrasound examination was performed, including grayscale imaging and color Doppler and spectral Doppler examination of the below mentioned arteries. FINDINGS -------- LEFT ARTERIES External iliac distal: PSV: 154 cm/s. EDV: 18 cm/s. Monophasic, intermediate resistive waveform. Common femoral mid: PSV: 128 cm/s. EDV: 20 cm/s. Monophasic, intermediate resistive waveform. Profunda femoral proximal: PSV: 190 cm/s. EDV: 17 cm/s. Monophasic, intermediate resistive waveform. Superficial femoral origin: PSV: 122 cm/s. EDV: 12 cm/s. Monophasic, intermediate resistive waveform. Superficial femoral proximal: PSV: 260 cm/s. EDV: 38 cm/s. Monophasic, intermediate resistive waveform. Superficial femoral mid: PSV: 56 cm/s. EDV: 7 cm/s. Multiphasic waveform. Superficial femoral distal: PSV: 76 cm/s. EDV: 11 cm/s. Monophasic, intermediate resistive waveform. Popliteal proximal: PSV: 74 cm/s. EDV: 14 cm/s. Monophasic, intermediate resistive waveform. Popliteal mid: PSV: 47 cm/s. EDV: 7 cm/s. Monophasic, intermediate resistive waveform. Popliteal distal: PSV: 82 cm/s. EDV: 13 cm/s. Monophasic, intermediate resistive waveform. VESSEL/GRAFT Tibioperoneal trunk : PSV: 72 cm/s. EDV: 9 cm/s. Monophasic, intermediate resistive waveform. IMPRESSION LEFT SIDE External iliac artery, Common femoral artery, Profunda femoral artery, Popliteal artery and Tibioperoneal trunk : plaque noted without evidence of hemodynamically significant stenosis . Superficial femoral artery proximal thigh : 50-99% stenosis . Technologist: Silva White RVT Ordering physician: MARSHA LUCAS Interpreting physician: Yosef Ortega MD Final CC [facility] Image : [id number] amicsSISUID See Link below for Image Normal [facility] White blood cell (WBC) count Ordered By: Melo Madison on 07-15-2024 WBC (Bld) [#/Vol] 8.1 10*3/uL 4.4-11.0 [facility] Albumin to globulin ratioOrd ered By: Melo Madison on 07-14-2024 Albumin/Globulin [Mass ratio] 0.6 {ratio} Low 0.9-2.4 [facility] Bilirubin directOrdered By: Melo Madison on 07-14-2024 Bilirubin.direct [Mass/Vol] 0.07 mg/dL 0.00-0.30 [facility] Bilirubin, totalOrdered By: Melo Madison on 07-14-2024 Bilirubin [Mass/Vol] 0.60 mg/dL 0.20-1.00 [facility] Comment on above: For patients on eltr ombopag therapy, use of Dimension [place] TBIL is not recommended. Blood urea nitrogen (BUN)/cr eatinine ratioOrdered By: Melo Madison on 07-14-2024 Urea nitrogen/Creatinine [Mass ratio] 7.0 mg/mg Low 10-20 [facility] C-reactive protein measureme nt by high sensitivity methodOrdered By: Melo Madison on 07-14-2024 C-reactive protein measurement by high sensitivity method 5.52 mg/L High 0.0-3.0 [facility] Comment on above: C-Reactive Protein ( CRP) provides useful information for thediagnosis, therapy and monitoring of inflammatory processesand associated diseases. For the evaluation of Relative Riskfor Cardiovascular Disease, a High Sensitivity CRP (HSCRP)should be ordered. Carbon dioxide measurementOr dered By: Melo Madison on 07-14-2024 CO2 [Moles/Vol] 29.0 mmol/L 21.0-32.0 [facility] Chloride measurementOrdered By: Melo Madison on 07-14-2024 Chloride [Moles/Vol] 108 mmol/L High 98-107 [facility] Glomerular filtration rate ( GFR) estimationOrdered By: Melo Madison on 07-14-2024 GFR/1.73 sq M.predicted among non-blacks MDRD (S/P/Bld) [Vol rate/Area] 79 mL/min/{1.73_m2} >60 [facility] Comment on above: Non- GFR Calc Glucose measurementOrdered B y: Melo Madison on 07-14-2024 Glucose [Mass/Vol] 120 mg/dL High 74-106 [facility] Comment on above: Fasting Glucose resu lt from 100 to 125 mg/dL suggests IMPAIRED HOMEOSTASIS per A.D.A. criteria. High density lipoprotein (HD L) measurementOrdered By: Melo Madison on 07-14-2024 Cholesterol in HDL [Mass/Vol] 45 mg/dL >40 [facility] Comment on above: The drugs N-Acetylcy steine and Metamizole may falsely depress this assay. Reference Range HDL <40 mg/dL Low HDL Cholesterol HDL >or= 60 mg/dL High HDL Cholesterol Laboratory - Chemistry and C hemistry - challengeOrdered By: Melo Madison on 07-14-2024 AST [Catalytic activity/Vol] 24 U/L 15-37 [facility] Comment on above: Slight Hemolysis, Re sult may be falsely increased. Low density lipoprotein (LDL ) cholesterol measurementOrdered By: Melo Madison on 07-14-2024 Cholesterol in LDL [Mass/Vol] 22 mg/dL 0-130 [facility] Potassium measurementOrdered By: Melo Madison on 07-14-2024 Potassium [Moles/Vol] 2.9 mmol/L Low 3.5-5.1 [facility] Comment on above: Slight Hemolysis, Re sult may be falsely increased. Serum anion gap measurementO rdered By: Melo Madison on 07-14-2024 Anion gap [Moles/Vol] 5 mmol/L 5-15 [facility] Serum globulin measurementOr dered By: Melo Madison on 07-14-2024 Globulin (S) [Mass/Vol] 3.7 g/dL 2.2-4.2 [facility] Serum or plasma alanine joiner otransferase (ALT) measurementOrdered By: Melo Madison on 07-14-2024 ALT [Catalytic activity/Vol] 20 U/L 16-61 [facility] Serum or plasma albumin wandy urement (mass/volume)Ordered By: Melo Madison on 07-14-2024 Albumin [Mass/Vol] 2.4 g/dL Low 3.2-5.0 [facility] Serum or plasma alkaline radha sphatase measurementOrdered By: Melo Madison on 07-14-2024 ALP [Catalytic activity/Vol] 108 U/L 45-117 [facility] Serum or plasma calcium wandy urement (mass/volume)Ordered By: Melo Madison on 07-14-2024 Calcium [Mass/Vol] 8.2 mg/dL Low 8.5-10.1 [facility] Serum or plasma cholesterol measurement (mass/volume)Ordered By: Melo Madison on 07-14-2024 Cholesterol [Mass/Vol] 111 mg/dL <200 [facility] Comment on above: <200 mg/dL Desirable 200-240 mg/dL Borderline >240 mg/dL High Risk Serum or plasma creatinine m easurement (mass/volume)Ordered By: Melo Madison on 07-14-2024 Creatinine [Mass/Vol] 1.00 mg/dL 0.70-1.30 [facility] Comment on above: The validity of the calculated GFR & GFRAA in patients over 70 years has not been determined. Clinical correlation is essential. Serum or plasma trough vanco mycin levelOrdered By: Melo Madison on 07-14-2024 Vancomycin trough [Mass/Vol] ug/mL Low 5.0-15.0 [facility] Comment on above: VANCOMYCIN STANDARED DRUG THERAPY TROUGH LEVEL: 5.0 - 15.0 mg/L VANCOMYCIN HIGH INTENSITY THERAPY TROUGH LEVEL: 15.0 - 20.0 mg/L High Intensity therapy recommended for serious lifethreatening infections include:- Xwkkojtsgr-Nxefcnasbtop-Lmmipfdft (Ventilator/Healtcare Associated)-Sepsis PLEASE CONTACT PHARMACY SERVICES (#[id number]) FOR INTERPRETATIONOF RESULTS. Serum or plasma urea nitroge n measurement (mass/volume)Ordered By: Melo Madison on 07-14-2024 Urea nitrogen [Mass/Vol] 7 mg/dL 7-18 [facility] Sodium levelOrdered By: Hugo Madison on 07-14-2024 Sodium [Moles/Vol] 142 mmol/L 136-145 [facility] Total proteinOrdered By: Lance Madison on 07-14-2024 Protein [Mass/Vol] 6.1 g/dL Low 6.4-8.2 [facility] Triglycerides measurementOrd ered By: Melo Madison on 07-14-2024 Triglyceride [Mass/Vol] 219 mg/dL High <199 [facility] Comment on above: The drugs N-Acetylcy steine and Metamizole may falsely depress this assay.Serum Triglycerides Reference Interval Normal <150 mg/dL Borderline high 150 - 199 mg/dL High 200 - 499 mg/dL Very High > or = 500 mg/dL Very low density lipoprotein (VLDL) cholesterol measurementOrdered By: Melo Madison on 07-14-2024 Very low density lipoprotein (VLDL) cholesterol measurement 44 mg/dL High 5-40 [facility] Blood urea nitrogen (BUN)/cr eatinine ratioOrdered By: Melo Madison on 07-11-2024 Urea nitrogen/Creatinine [Mass ratio] 7.9 mg/mg Low 10-20 [facility] CNPNon 07-11-2024 CNPN [address] [facility] Carbon dioxide measurementOr dered By: Melo Madison on 07-11-2024 CO2 [Moles/Vol] 31.0 mmol/L 21.0-32.0 [facility] Chloride measurementOrdered By: Melo Madison on 07-11-2024 Chloride [Moles/Vol] 101 mmol/L 98-107 [facility] Erythrocyte distribution wid th ratioOrdered By: Melo Madison on 07-11-2024 Erythrocyte distribution width (RBC) [Ratio] 15.2 % High 11.6-14.6 [facility] Erythrocyte distribution wid th standard deviationOrdered By: Melo Madison on 07-11-2024 Erythrocyte distribution width (RBC) [Ratio] 46.6 fl High 35.1-43.9 [facility] Glomerular filtration rate ( GFR) estimationOrdered By: Melo Madison on 07-11-2024 GFR/1.73 sq M.predicted among non-blacks MDRD (S/P/Bld) [Vol rate/Area] 78 mL/min/{1.73_m2} >60 [facility] Comment on above: Non- GFR Calc Glucose measurementOrdered B y: Melo Madison on 07-11-2024 Glucose [Mass/Vol] 109 mg/dL High 74-106 [facility] Comment on above: Fasting Glucose resu lt from 100 to 125 mg/dL suggests IMPAIRED HOMEOSTASIS per A.D.A. criteria. Hematocrit Auto (Bld) [Volum e fraction]Ordered By: Melo Madison on 07-11-2024 Hematocrit (Bld) [Volume fraction] 38.2 % Low 40-54 [facility] Hemoglobin measurementOrdere d By: Melo Madison on 07-11-2024 Hemoglobin (Bld) [Mass/Vol] 12.2 g/dL Low 13.0-16.5 [facility] MCV (mean corpuscular volume ) determinationOrdered By: Melo Madison on 07-11-2024 MCV (RBC) [Entitic vol] 84.9 fL 80-94 [facility] Mean corpuscular hemoglobin (MCH) determinationOrdered By: Melo Madison on 07-11-2024 MCH (RBC) [Entitic mass] 27.1 pg 27.0-32.0 [facility] Mean corpuscular hemoglobin concentration (MCHC) determinationOrdered By: Melo Madison on 07-11-2024 MCHC (RBC) [Mass/Vol] 31.9 g/dL Low 32-36 [facility] Mean platelet volume determi nationOrdered By: Melo Madison on 07-11-2024 Platelet mean volume (Bld) [Entitic vol] 10.8 fL 6.2-12.0 [facility] Platelet countOrdered By: Manuel Madison on 07-11-2024 Platelets (Bld) [#/Vol] 201 10*3/uL 150-450 [facility] Potassium measurementOrdered By: Melo Madison on 07-11-2024 Potassium [Moles/Vol] 2.8 mmol/L Low 3.5-5.1 [facility] RBC Auto (Bld) [#/Vol]Ordere d By: Melo Madison on 07-11-2024 RBC (Bld) [#/Vol] 4.50 10*6/uL Low 4.6-6.2 [facility] Serum anion gap measurementO rdered By: Melo Madison on 07-11-2024 Anion gap [Moles/Vol] 8 mmol/L 5-15 [facility] Serum or plasma calcium wandy urement (mass/volume)Ordered By: Melo Madison on 07-11-2024 Calcium [Mass/Vol] 9.2 mg/dL 8.5-10.1 [facility] Serum or plasma creatinine m easurement (mass/volume)Ordered By: Melo Madison on 07-11-2024 Creatinine [Mass/Vol] 1.01 mg/dL 0.70-1.30 [facility] Comment on above: The validity of the calculated GFR & GFRAA in patients over 70 years has not been determined. Clinical correlation is essential. Serum or plasma urea nitroge n measurement (mass/volume)Ordered By: Melo Madison on 07-11-2024 Urea nitrogen [Mass/Vol] 8 mg/dL 7-18 [facility] Sodium levelOrdered By: Hugo Madison on 07-11-2024 Sodium [Moles/Vol] 141 mmol/L 136-145 [facility] White blood cell (WBC) count Ordered By: Melo Madison on 07-11-2024 WBC (Bld) [#/Vol] 7.0 10*3/uL 4.4-11.0 [facility] CNOVon 07-10-[address]OV [address] [facility] Absolute lymphocyte countOrd ered By: Melo Madison on 07-07-2024 Lymphocytes Auto (Unsp spec) [#/Vol] 1.92 10*3/uL 0.83-4.51 [facility] Absolute neutrophil countOrd ered By: Melo Madison on 07-07-2024 Neutrophils (Bld) [#/Vol] 4.8 10*3/uL 2.0-7.7 [facility] Albumin to globulin ratioOrd ered By: Melo Madison on 07-07-2024 Albumin/Globulin [Mass ratio] 0.7 {ratio} Low 0.9-2.4 [facility] Automated lymphocyte count a s percentage of total leukocytesOrdered By: Melo Madison on 07-07-2024 Lymphocytes/100 WBC Auto (Unsp spec) 24.6 % 19-41 [facility] Basophil percentageOrdered B y: Melo Madison on 07-07-2024 Basophils/100 WBC (Bld) 0.8 % 0-1 [facility] Bilirubin directOrdered By: Melo Madison on 07-07-2024 Bilirubin.direct [Mass/Vol] 0.08 mg/dL 0.00-0.30 [facility] Bilirubin, totalOrdered By: Melo Madison on 07-07-2024 Bilirubin [Mass/Vol] 0.20 mg/dL 0.20-1.00 [facility] Comment on above: For patients on eltr ombopag therapy, use of Dimension [place] TBIL is not recommended. Blood urea nitrogen (BUN)/cr eatinine ratioOrdered By: Melo Madison on 07-07-2024 Urea nitrogen/Creatinine [Mass ratio] 10.6 mg/mg 10-20 [facility] C-reactive protein measureme nt by high sensitivity methodOrdered By: Melo Madison on 07-07-2024 C-reactive protein measurement by high sensitivity method 10.40 mg/L High 0.0-3.0 [facility] Comment on above: C-Reactive Protein ( CRP) provides useful information for thediagnosis, therapy and monitoring of inflammatory processesand associated diseases. For the evaluation of Relative Riskfor Cardiovascular Disease, a High Sensitivity CRP (HSCRP)should be ordered. Carbon dioxide measurementOr dered By: Melo Madison on 07-07-2024 CO2 [Moles/Vol] 29.0 mmol/L 21.0-32.0 [facility] Chloride measurementOrdered By: Melo Madison on 07-07-2024 Chloride [Moles/Vol] 104 mmol/L 98-107 [facility] Eosinophil percentageOrdered By: Melo Madison on 07-07-2024 Eosinophils/100 WBC (Bld) 2.3 % 0-5 [facility] Erythrocyte distribution wid th ratioOrdered By: Melo Madison on 07-07-2024 Erythrocyte distribution width (RBC) [Ratio] 15.1 % High 11.6-14.6 [facility] Erythrocyte distribution wid th standard deviationOrdered By: Melo Madison on 07-07-2024 Erythrocyte distribution width (RBC) [Ratio] 47.1 fl High 35.1-43.9 [facility] Erythrocyte sedimentation ra teOrdered By: Melo Madison on 07-07-2024 ESR (Bld) [Velocity] 23 mm/h High 0-20 [facility] Glomerular filtration rate ( GFR) estimationOrdered By: Melo Madison on 07-07-2024 GFR/1.73 sq M.predicted among non-blacks MDRD (S/P/Bld) [Vol rate/Area] 76 mL/min/{1.73_m2} >60 [facility] Comment on above: Non- GFR Calc Glucose measurementOrdered B y: Melo Madison on 07-07-2024 Glucose [Mass/Vol] 118 mg/dL High 74-106 [facility] Comment on above: Fasting Glucose resu lt from 100 to 125 mg/dL suggests IMPAIRED HOMEOSTASIS per A.D.A. criteria. Hematocrit Auto (Bld) [Volum e fraction]Ordered By: Melo Madison on 07-07-2024 Hematocrit (Bld) [Volume fraction] 37.1 % Low 40-54 [facility] Hemoglobin measurementOrdere d By: Melo Madison on 07-07-2024 Hemoglobin (Bld) [Mass/Vol] 11.8 g/dL Low 13.0-16.5 [facility] High density lipoprotein (HD L) measurementOrdered By: Melo Madison on 07-07-2024 Cholesterol in HDL [Mass/Vol] 38 mg/dL Low >40 [facility] Comment on above: The drugs N-Acetylcy steine and Metamizole may falsely depress this assay. Reference Range HDL <40 mg/dL Low HDL Cholesterol HDL >or= 60 mg/dL High HDL Cholesterol Immature granulocytes/100 WB C Auto (Bld)Ordered By: Melo Madison on 07-07-2024 Immature granulocytes/100 WBC (Bld) 0.500 % 0.0-0.9 [facility] Comment on above: IG% - Immature Granu locytes (promyelocytes, myelocytes and metamyelocytes) > 1% indicates that a LEFT SHIFT is Present. International normalized rat io (INR) calculationOrdered By: Melo Madison on 07-07-2024 INR Coag (Bld) [Relative time] 1.2 {INR} [facility] Laboratory - Chemistry and C hemistry - challengeOrdered By: Melo Madison on 07-07-2024 AST [Catalytic activity/Vol] 18 U/L 15-37 [facility] Low density lipoprotein (LDL ) cholesterol measurementOrdered By: Melo Madison on 07-07-2024 Cholesterol in LDL [Mass/Vol] 40 mg/dL 0-130 [facility] MCV (mean corpuscular volume ) determinationOrdered By: Melo Madison on 07-07-2024 MCV (RBC) [Entitic vol] 85.3 fL 80-94 [facility] Mean corpuscular hemoglobin (MCH) determinationOrdered By: Melo Madison on 07-07-2024 MCH (RBC) [Entitic mass] 27.1 pg 27.0-32.0 [facility] Mean corpuscular hemoglobin concentration (MCHC) determinationOrdered By: Melo Madison on 07-07-2024 MCHC (RBC) [Mass/Vol] 31.8 g/dL Low 32-36 [facility] Mean platelet volume determi nationOrdered By: Melo Madison on 07-07-2024 Platelet mean volume (Bld) [Entitic vol] 10.8 fL 6.2-12.0 [facility] Monocyte percentageOrdered B y: Melo Madison on 07-07-2024 Monocytes/100 WBC (Bld) 10.2 % High 0-10 [facility] Neutrophil percentageOrdered By: Melo Madison on 07-07-2024 Neutrophils/100 WBC (Bld) 61.6 % 47-70 [facility] Nucleated red blood cell per centageOrdered By: Melo Madison on 07-07-2024 Nucleated RBC/100 WBC (Bld) [Ratio] 0 % 0-5 [facility] Platelet countOrdered By: Manuel Madison on 07-07-2024 Platelets (Bld) [#/Vol] 211 10*3/uL 150-450 [facility] Potassium measurementOrdered By: Melo Madison on 07-07-2024 Potassium [Moles/Vol] 3.0 mmol/L Low 3.5-5.1 [facility] Prothrombin timeOrdered By: Melo Madison on 07-07-2024 PT Coag (PPP) [Time] 15.2 s High 11.7-14.9 [facility] RBC Auto (Bld) [#/Vol]Ordere d By: Melo Madison on 07-07-2024 RBC (Bld) [#/Vol] 4.35 10*6/uL Low 4.6-6.2 [facility] Serum anion gap measurementO rdered By: Melo Madison on 07-07-2024 Anion gap [Moles/Vol] 7 mmol/L 5-15 [facility] Serum globulin measurementOr dered By: Melo Madison on 07-07-2024 Globulin (S) [Mass/Vol] 3.9 g/dL 2.2-4.2 [facility] Serum or plasma alanine joiner otransferase (ALT) measurementOrdered By: Melo Madison on 07-07-2024 ALT [Catalytic activity/Vol] 24 U/L 16-61 [facility] Serum or plasma albumin wandy urement (mass/volume)Ordered By: Melo Madison on 07-07-2024 Albumin [Mass/Vol] 2.7 g/dL Low 3.2-5.0 [facility] Serum or plasma alkaline radha sphatase measurementOrdered By: Melo Madison on 07-07-2024 ALP [Catalytic activity/Vol] 115 U/L 45-117 [facility] Serum or plasma calcium wandy urement (mass/volume)Ordered By: Melo Madison on 07-07-2024 Calcium [Mass/Vol] 9.0 mg/dL 8.5-10.1 [facility] Serum or plasma cholesterol measurement (mass/volume)Ordered By: Melo Madison on 07-07-2024 Cholesterol [Mass/Vol] 129 mg/dL <200 [facility] Comment on above: <200 mg/dL Desirable 200-240 mg/dL Borderline >240 mg/dL High Risk Serum or plasma creatinine m easurement (mass/volume)Ordered By: Melo Madison on 07-07-2024 Creatinine [Mass/Vol] 1.04 mg/dL 0.70-1.30 [facility] Comment on above: The validity of the calculated GFR & GFRAA in patients over 70 years has not been determined. Clinical correlation is essential. Serum or plasma trough vanco mycin levelOrdered By: Melo Madison on 07-07-2024 Vancomycin trough [Mass/Vol] ug/mL Low 5.0-15.0 [facility] Comment on above: VANCOMYCIN STANDARED DRUG THERAPY TROUGH LEVEL: 5.0 - 15.0 mg/L VANCOMYCIN HIGH INTENSITY THERAPY TROUGH LEVEL: 15.0 - 20.0 mg/L High Intensity therapy recommended for serious lifethreatening infections include:- Sqjjbdzojr-Prwfxaszwwym-Uvztnvaur (Ventilator/Healtcare Associated)-Sepsis PLEASE CONTACT PHARMACY SERVICES (#9902) FOR INTERPRETATIONOF RESULTS. Serum or plasma urea nitroge n measurement (mass/volume)Ordered By: Melo Madison on 07-07-2024 Urea nitrogen [Mass/Vol] 11 mg/dL 7-18 [facility] Sodium levelOrdered By: Hugo Madison on 07-07-2024 Sodium [Moles/Vol] 140 mmol/L 136-145 [facility] Total proteinOrdered By: Lance Madison on 07-07-2024 Protein [Mass/Vol] 6.6 g/dL 6.4-8.2 [facility] Triglycerides measurementOrd ered By: Melo Madison on 07-07-2024 Triglyceride [Mass/Vol] 256 mg/dL High <199 [facility] Comment on above: The drugs N-Acetylcy steine and Metamizole may falsely depress this assay.Serum Triglycerides Reference Interval Normal <150 mg/dL Borderline high 150 - 199 mg/dL High 200 - 499 mg/dL Very High > or = 500 mg/dL Very low density lipoprotein (VLDL) cholesterol measurementOrdered By: Melo Madison on 07-07-2024 Very low density lipoprotein (VLDL) cholesterol measurement 51 mg/dL High 5-40 [facility] White blood cell (WBC) count Ordered By: Melo Madison on 07-07-2024 WBC (Bld) [#/Vol] 7.8 10*3/uL 4.4-11.0 [facility] CBC W Auto Differential pane l (Bld)on 07-02-2024 Basophils (Bld) [#/Vol] 0.10 10*3/uL Normal <0.[address] [facility] Comment on above: Order Comment: Speci men Type: BLOOD SPECIMENOrdering Facility: [facility] Address: [address] [place] [address] Performed By: #### 5 7021-8 ####LERNER LABORATORYCLIA [id number] [place] [address] [place] Basophils/100 WBC (Bld) 1.1 % Normal [facility] Comment on above: Order Comment: Speci men Type: BLOOD SPECIMENOrdering Facility: [facility] Address: [address] [place] [address] Performed By: #### 5 7021-8 ####LERNER LABORATORYCLIA [id number] [place] [address] [place] Differential cell count method Nom (Bld) Auto Normal [facility] Comment on above: Order Comment: Speci men Type: BLOOD SPECIMENOrdering Facility: [facility] Address: [address] [place] [address] Performed By: #### 5 7021-8 ####LERNER LABORATORYCLIA [id number] [place] [address] [place] Eosinophils (Bld) [#/Vol] 0.18 10*3/uL Normal <0.[address] [facility] Comment on above: Order Comment: Speci men Type: BLOOD SPECIMENOrdering Facility: [facility] Address: [address] [place] [address] Performed By: #### 5 7021-8 ####LERNER LABORATORYCLIA [id number] [address] [place] Eosinophils/100 WBC (Bld) 1.9 % Normal [facility] Comment on above: Order Comment: Speci men Type: BLOOD SPECIMENOrdering Facility: [facility] Address: [address] [place] [address] Performed By: #### 5 7021-8 ####LERNER LABORATORYCLIA [id number] [place] [address] [place] Erythrocyte distribution width (RBC) [Ratio] 15.5 % High 11.5-15.[address] [facility] Comment on above: Order Comment: Speci men Type: BLOOD SPECIMENOrdering Facility: [facility] Address: [address] [place] [address] Performed By: #### 5 7021-8 ####LERNER LABORATORYCLIA [id number] [address] [place] Hematocrit (Bld) [Volume fraction] 43.2 % Normal 39.0-51.[address] [facility] Comment on above: Order Comment: Speci men Type: BLOOD SPECIMENOrdering Facility: [facility] Address: [address] [place] [address] Performed By: #### 5 7021-8 ####LERNER LABORATORYCLIA [id number] [place] [address] [place] Hemoglobin (Bld) [Mass/Vol] 13.9 g/dL Normal 13.0-17.[address] [facility] Comment on above: Order Comment: Speci men Type: BLOOD SPECIMENOrdering Facility: [facility] Address: [address] [place] [address] Performed By: #### 5 7021-8 ####LERNER LABORATORYCLIA [id number] [address] [place] Immature granulocytes (Bld) [#/Vol] 0.07 10*3/uL Normal <0.[address] [facility] Comment on above: Order Comment: Speci men Type: BLOOD SPECIMENOrdering Facility: [facility] Address: [address] [place] [address] Performed By: #### 5 7021-8 ####LERNER LABORATORYCLIA [id number] [address] [place] Immature granulocytes/100 WBC (Bld) 0.7 % Normal [facility] Comment on above: Order Comment: Speci men Type: BLOOD SPECIMENOrdering Facility: [facility] Address: [address] [place] [address] Performed By: #### 5 7021-8 ####LERNER LABORATORYCLIA [id number] [address] [place] Lymphocytes (Bld) [#/Vol] 1.86 10*3/uL Normal 1.00-4.[address] [facility] Comment on above: Order Comment: Speci men Type: BLOOD SPECIMENOrdering Facility: [facility] Address: [address] [place] [address] Performed By: #### 5 7021-8 ####LERNER LABORATORYCLIA [id number] [address] Lymphocytes/100 WBC (Bld) 19.7 % Normal [facility] Comment on above: Order Comment: Speci men Type: BLOOD SPECIMENOrdering Facility: [facility] Address: [address] [place] [address] Performed By: #### 5 7021-8 ####LERNER LABORATORYCLIA [id number] [address] STATES [facility] MCH (RBC) [Entitic mass] 27.7 pg Normal 26.0-34.[address] [facility] Comment on above: Order Comment: Speci men Type: BLOOD SPECIMENOrdering Facility: [facility] Address: [address] [place] [address] Performed By: #### 5 7021-8 ####LERNER LABORATORYCLIA [id number] [address] MCHC (RBC) [Mass/Vol] 32.2 g/dL Normal 30.5-36.0 [facility] Comment on above: Order Comment: Speci men Type: BLOOD SPECIMENOrdering Facility: [facility] Address: [address] [place] [address] Performed By: #### 5 7021-8 ####LERNER LABORATORYCLIA [id number] [address] MCV (RBC) [Entitic vol] 86.2 fL Normal 80.0-100.0 [facility] Comment on above: Order Comment: Speci men Type: BLOOD SPECIMENOrdering Facility: [facility] Address: [address] [place] [address] Performed By: #### 5 7021-8 ####LERNER LABORATORYCLIA [id number] [place] [address] [place] Monocytes (Bld) [#/Vol] 0.83 10*3/uL Normal <0.[address] [facility] Comment on above: Order Comment: Speci men Type: BLOOD SPECIMENOrdering Facility: [facility] Address: [address] [place] [address] Performed By: #### 5 7021-8 ####LERNER LABORATORYCLIA [id number] [place] [address] [place] Monocytes/100 WBC (Bld) 8.8 % Normal [facility] Comment on above: Order Comment: Speci men Type: BLOOD SPECIMENOrdering Facility: [facility] Address: [address] [place] [address] Performed By: #### 5 7021-8 ####LERNER LABORATORYCLIA [id number] [place] [address] [place] Neutrophils (Bld) [#/Vol] 6.41 10*3/uL Normal 1.45-7.[address] [facility] Comment on above: Order Comment: Speci men Type: BLOOD SPECIMENOrdering Facility: [facility] Address: [address] [place] [address] Performed By: #### 5 7021-8 ####LERNER LABORATORYCLIA [id number] [address] [place] Neutrophils/100 WBC (Bld) 67.8 % Normal [facility] Comment on above: Order Comment: Speci men Type: BLOOD SPECIMENOrdering Facility: [facility] Address: [address] [place] [address] Performed By: #### 5 7021-8 ####LERNER LABORATORYCLIA [id number] [place] [address] [place] Nucleated RBC (Bld) [#/Vol] 10*3/uL Normal <0.[address] [facility] Comment on above: Order Comment: Speci men Type: BLOOD SPECIMENOrdering Facility: [facility] Address: [address] [place] [address] Performed By: #### 5 7021-8 ####LERNER LABORATORYCLIA [id number] [place] [address] [place] Nucleated RBC/100 WBC (Bld) [Ratio] 0.0 /100 WBC Normal [facility] Comment on above: Order Comment: Speci men Type: BLOOD SPECIMENOrdering Facility: [facility] Address: [address] [place] [address] Performed By: #### 5 7021-8 ####LERNER LABORATORYCLIA [id number] [place] [address] [place] Platelet mean volume (Bld) [Entitic vol] 10.3 fL Normal 9.0-12.[address] [facility] Comment on above: Order Comment: Speci men Type: BLOOD SPECIMENOrdering Facility: [facility] Address: [address] [place] [address] Performed By: #### 5 7021-8 ####LERNER LABORATORYCLIA [id number] [place] [address] [place] Platelets (Bld) [#/Vol] 198 10*3/uL Normal 150-[address] [facility] Comment on above: Order Comment: Speci men Type: BLOOD SPECIMENOrdering Facility: [facility] Address: [address] [place] [address] Performed By: #### 5 7021-8 ####LERNER LABORATORYCLIA [id number] [place] [address] [place] RBC (Bld) [#/Vol] 5.01 10*6/uL Normal 4.20-6.00 [facility] Comment on above: Order Comment: Speci men Type: BLOOD SPECIMENOrdering Facility: [facility] Address: [address] [place] [address] Performed By: #### 5 7021-8 ####LERNER LABORATORYCLIA [id number] [place] [address] [place] WBC (Bld) [#/Vol] 9.45 10*3/uL Normal 3.70-11.00 [facility] Comment on above: Order Comment: Speci men Type: BLOOD SPECIMENOrdering Facility: [facility] Address: [address] [place] [address] Performed By: #### 5 7021-8 ####LERNER LABORATORYCLIA [id number] [place] [address] [facility] [place] Comprehensive metabolic 2000 panelon 07-02-2024 Albumin [Mass/Vol] 4.0 g/dL Normal 3.9-4.[address] [facility] Comment on above: Order Comment: Speci men Type: BLOOD SPECIMENOrdering Facility: [facility] Address: [address] [place] [address] Performed By: #### 2 4323-8 ####LERNER LABORATORYCLIA [id number] [address] [place] ALP [Catalytic activity/Vol] 146 U/L High 38-[address] [facility] Comment on above: Order Comment: Speci men Type: BLOOD SPECIMENOrdering Facility: [facility] Address: [address] [place] [address] Performed By: #### 2 4323-8 ####LERNER LABORATORYCLIA [id number] [address] STATES [facility] ALT [Catalytic activity/Vol] 26 U/L Normal 10-[address] [facility] Comment on above: Order Comment: Speci men Type: BLOOD SPECIMENOrdering Facility: [facility] Address: [address] [place] [address] Performed By: #### 2 4323-8 ####LERNER LABORATORYCLIA [id number] [address] Anion gap [Moles/Vol] 13 mmol/L Normal 8-15 [facility] Comment on above: Order Comment: Speci men Type: BLOOD SPECIMENOrdering Facility: [facility] Address: [address] [place] [address] Performed By: #### 2 4323-8 ####LERNER LABORATORYCLIA [id number] [address] [place] AST [Catalytic activity/Vol] 23 U/L Normal 14-[address] [facility] Comment on above: Order Comment: Speci men Type: BLOOD SPECIMENOrdering Facility: [facility] Address: [address] [place] [address] Performed By: #### 2 4323-8 ####LERNER LABORATORYCLIA [id number] [place] [address] [place] Bilirubin [Mass/Vol] 0.4 mg/dL Normal 0.2-1.3 [facility] [place] Comment on above: Order Comment: Speci men Type: BLOOD SPECIMENOrdering Facility: [facility] Address: [address] [place] [address] Performed By: #### 2 4323-8 ####LERNER LABORATORYCLIA [id number] [place] [address] [place] Calcium [Mass/Vol] 9.7 mg/dL Normal 8.5-10.[address] [facility] Comment on above: Order Comment: Speci men Type: BLOOD SPECIMENOrdering Facility: [facility] Address: [address] [place] [address] Performed By: #### 2 4323-8 ####LERNER LABORATORYCLIA [id number] [place] [address] [place] Chloride [Moles/Vol] 98 mmol/L Normal 98-107 [facility] [place] Comment on above: Order Comment: Speci men Type: BLOOD SPECIMENOrdering Facility: [facility] Address: [address] [place] [address] Performed By: #### 2 4323-8 ####LERNER LABORATORYCLIA [id number] [place] [address] [place] CO2 [Moles/Vol] 26 mmol/L Normal 22-[address] [facility] Comment on above: Order Comment: Speci men Type: BLOOD SPECIMENOrdering Facility: [facility] Address: [address] [place] [address] Performed By: #### 2 4323-8 ####LERNER LABORATORYCLIA [id number] [place] [address] [place] Creatinine [Mass/Vol] 1.14 mg/dL Normal 0.73-1.22 [facility] Comment on above: Order Comment: Speci men Type: BLOOD SPECIMENOrdering Facility: [facility] Address: [address] [place] [address] Performed By: #### 2 4323-8 ####LATONIA LABORATORYCLIA [id number] [address] Creatinine and Glomerular filtration rate.predicted panel (S/P/Bld) 70 mL/min/1.73m??? Normal >=[address] [facility] Comment on above: Order Comment: Raudel lorena Type: BLOOD SPECIMENOrdering Facility: [facility] Address: [address] [place] [address] Result Comment: Sachi mated Glomerular Filtration Rate (eGFR) is calculated using the 2020 CKD-EPI creatinine equation. This equation utilizes serum creatinine, sex, and age as parameters. The creatinine assay has traceable calibration to isotope dilution-mass spectrometry. Refer to KDIGO guidelines for clinical interpretation. In patients with unstable renal function, e.g. those with acute kidney injury, the eGFR may not accurately reflect actual GFR. Performed By: #### 2 4323-8 ####LERNER LABORATORYCLIA [id number] [place] [address] [place] Glucose [Mass/Vol] 150 mg/dL High 74-[address] [facility] Comment on above: Order Comment: Raudel lorena Type: BLOOD SPECIMENOrdering Facility: [facility] Address: [address] [place] [address] Result Comment: The [place] [employer] (ADA) provides guidance for cutoff values for fasting glucose and random glucose. The ADA defines fasting as no caloric intake for at least 8 hours. Fasting plasma glucose results between 100 to 125 mg/dL indicate increased risk for diabetes (prediabetes).Fasting plasma glucose results greater than or equal to 126 mg/dL meet the criteria for diagnosis of diabetes. In the absence of unequivocal hyperglycemia, results should be confirmed by repeat testing. In a patient with classic symptoms of hyperglycemia or hyperglycemic crisis, random plasma glucose results greater than or equal to 200 mg/dL meet the criteria for diagnosis of diabetes.Reference: Standards of Medical Care in Diabetes 2016, [place] [employer]. Diabetes Care. 2016.39(Suppl 1). Performed By: #### 2 4323-8 ####LERNER LABORATORYCLIA [id number] [place] [address] [place] Potassium [Moles/Vol] 3.8 mmol/L Normal 3.7-5.1 [facility] Comment on above: Order Comment: Speci men Type: BLOOD SPECIMENOrdering Facility: [facility] Address: [address] [place] [address] Performed By: #### 2 4323-8 ####LERNER LABORATORYCLIA [id number] [place] [address] [place] Protein [Mass/Vol] 7.9 g/dL Normal 6.3-8.[address] [facility] Comment on above: Order Comment: Speci men Type: BLOOD SPECIMENOrdering Facility: [facility] Address: [address] [place] [address] Performed By: #### 2 4323-8 ####LERNER LABORATORYCLIA [id number] [address] [place] Sodium [Moles/Vol] 137 mmol/L Normal 136-[address] [facility] Comment on above: Order Comment: Speci men Type: BLOOD SPECIMENOrdering Facility: [facility] Address: [address] [place] [address] Performed By: #### 2 4323-8 ####LERNER LABORATORYCLIA [id number] [place] [address] [place] Urea nitrogen [Mass/Vol] 10 mg/dL Normal 9-[address] [facility] Comment on above: Order Comment: Speci men Type: BLOOD SPECIMENOrdering Facility: [facility] Address: [address] [place] [address] Performed By: #### 2 4323-8 ####LERNER LABORATORYCLIA [id number] [place] [address] [place] ED NOTEon 07-02-2024 ED NOTE HNO ID: [id number] Author: NIKHIL CORBIN RN Service: Nursing Author Type: Registered Nurse Type: ED Notes Filed: 07/02/2024 19:48 Note Text: Report to transport crew, new blood work drawn and sent and heplock removed Normal [facility] ED NOTE HNO ID: [id number] Author: DAVE CHÁVEZ RN Service: ? Author Type: Registered Nurse Type: ED Notes Filed: 07/02/2024 19:17 Note Text: PT report given to Heaven (RN) Normal [facility] ED NOTE Normal [facility] ED PROV NOTEon 07-02-2024 ED PROV NOTE Normal [facility] ED Triage Noteon 07-02-2024 ED Triage Note Normal [facility] SEPSIS LACTATE W/ REFLEX (IN ITIAL)on 07-02-2024 Lactate [Moles/Vol] 2.8 mmol/L High 0.5-2.0 [facility] Comment on above: Order Comment: Speci men Type: BLOOD SPECIMENOrdering Facility: [facility] Address: [address] [place] [address] Performed By: #### S LACTR ####LATONIA LABORATORYCLIA [id number] [address] OF [facility] SEPSIS LACTATE W/ REFLEX (SE COND)on 07-02-2024 Lactate [Moles/Vol] 1.8 mmol/L Normal 0.5-2.0 [facility] Comment on above: Order Comment: Speci men Type: BLOOD SPECIMENOrdering Facility: [facility] Address: [address] [place] [address] Performed By: #### S LACT2 ####LATONIA LABORATORYCLIA [id number] [address] XR FOOT 3V AP/LAT/OBL LTon 0 07-02-2024 XR FOOT 3V AP/LAT/OBL LT Normal [facility] Glomerular filtration rate ( GFR) estimationOrdered By: Melo Madison on 06-27-2024 GFR/1.73 sq M.predicted among non-blacks MDRD (S/P/Bld) [Vol rate/Area] 84 mL/min/{1.73_m2} >60 [facility] Comment on above: Non- GFR Calc Serum or plasma creatinine m easurement (mass/volume)Ordered By: Melo Madison on 06-27-2024 Creatinine [Mass/Vol] 0.95 mg/dL 0.70-1.30 [facility] Comment on above: The validity of the calculated GFR & GFRAA in patients over 70 years has not been determined. Clinical correlation is essential. Glomerular filtration rate ( GFR) estimationOrdered By: Melo Madison on 06-26-2024 GFR/1.73 sq M.predicted among non-blacks MDRD (S/P/Bld) [Vol rate/Area] 82 mL/min/{1.73_m2} >60 [facility] Comment on above: Non- GFR Calc Serum or plasma creatinine m easurement (mass/volume)Ordered By: Melo Madison on 06-26-2024 Creatinine [Mass/Vol] 0.97 mg/dL 0.70-1.30 [facility] Comment on above: The validity of the calculated GFR & GFRAA in patients over 70 years has not been determined. Clinical correlation is essential. CNOVon 06-24-2024 [facility] CNOVon 06-19-2024 [facility] Basic metabolic 2000 panelon 06-06-2024 Anion gap [Moles/Vol] 11 mmol/L Normal 8-15 [facility] Comment on above: Order Comment: Speci men Type: BLOOD SPECIMENOrdering Facility: [facility] Address: [address] [place] [address] Performed By: #### 2 4320-07, ####LATONIA LABORATORYCLIA [id number] [place] [address] [place] Calcium [Mass/Vol] 8.8 mg/dL Normal 8.5-10.[address] [facility] Comment on above: Order Comment: Speci men Type: BLOOD SPECIMENOrdering Facility: [facility] Address: [address] [place] [address] Performed By: #### 2 2, ####LERNER LABORATORYCLIA [id number] [place] [id number] [place] Chloride [Moles/Vol] 101 mmol/L Normal 98-107 [facility] [place] Comment on above: Order Comment: Speci men Type: BLOOD SPECIMENOrdering Facility: [facility] Address: [address] [place] [address] Performed By: #### 2 4322, ####LERNER LABORATORYCLIA [id number] [place] [address] [place] CO2 [Moles/Vol] 28 mmol/L Normal 22-[address] [facility] Comment on above: Order Comment: Raudel carrillo Type: BLOOD SPECIMENOrdering Facility: [facility] Address: [address] [place] [address] Performed By: #### 2 4321-2, ####LERNER LABORATORYCLIA [id number] [place] [address] [place] Creatinine [Mass/Vol] 1.03 mg/dL Normal 0.73-1.22 [facility] Comment on above: Order Comment: Raudel carrillo Type: BLOOD SPECIMENOrdering Facility: [facility] Address: [address] [place] [address] Performed By: #### 2 4321-2, ####LERNER LABORATORYCLIA [id number] [address] Creatinine and Glomerular filtration rate.predicted panel (S/P/Bld) 80 mL/min/1.73m??? Normal >=[address] [facility] Comment on above: Order Comment: Raudel carrillo Type: BLOOD SPECIMENOrdering Facility: [facility] Address: [address] [place] [address] Result Comment: Sachi mated Glomerular Filtration Rate (eGFR) is calculated using the 2020 CKD-EPI creatinine equation. This equation utilizes serum creatinine, sex, and age as parameters. The creatinine assay has traceable calibration to isotope dilution-mass spectrometry. Refer to KDIGO guidelines for clinical interpretation. In patients with unstable renal function, e.g. those with acute kidney injury, the eGFR may not accurately reflect actual GFR. Performed By: #### 2 4321-2, ####LERNER LABORATORYCLIA [id number] [place] [id number] [place] Glucose [Mass/Vol] 193 mg/dL High 74-[address] [facility] Comment on above: Order Comment: Raudel lorena Type: BLOOD SPECIMENOrdering Facility: [facility] Address: [address] [place] [address] Result Comment: The [place] [employer] (ADA) provides guidance for cutoff values for fasting glucose and random glucose. The ADA defines fasting as no caloric intake for at least 8 hours. Fasting plasma glucose results between 100 to 125 mg/dL indicate increased risk for diabetes (prediabetes).Fasting plasma glucose results greater than or equal to 126 mg/dL meet the criteria for diagnosis of diabetes. In the absence of unequivocal hyperglycemia, results should be confirmed by repeat testing. In a patient with classic symptoms of hyperglycemia or hyperglycemic crisis, random plasma glucose results greater than or equal to 200 mg/dL meet the criteria for diagnosis of diabetes.Reference: Standards of Medical Care in Diabetes 2016, [place] [employer]. Diabetes Care. 2016.39(Suppl 1). Performed By: #### 2 4320-07, ####LERNER LABORATORYCLIA [id number] [place] [address] [place] Potassium [Moles/Vol] 4.2 mmol/L Normal 3.7-5.1 [facility] Comment on above: Order Comment: Raudel carrillo Type: BLOOD SPECIMENOrdering Facility: [facility] Address: [address] [place] [address] Performed By: #### 2 4320-07, ####LERNER LABORATORYCLIA [id number] [place] [address] [place] Sodium [Moles/Vol] 140 mmol/L Normal 136-[address] [facility] Comment on above: Order Comment: Raudel carrillo Type: BLOOD SPECIMENOrdering Facility: [facility] Address: [address] [place] [address] Performed By: #### 2 4320-07, ####LERNER LABORATORYCLIA [id number] [place] [id number] [place] Urea nitrogen [Mass/Vol] 15 mg/dL Normal 9-[address] [facility] Comment on above: Order Comment: Raudel carrillo Type: BLOOD SPECIMENOrdering Facility: [facility] Address: [address] [place] [address] Performed By: #### 2 4320-07, ####LERNER LABORATORYCLIA [id number] [place] [address] [place] CASE MANAGEMon 06-06-2024 CASE MANAGEM Normal [facility] CASE MANAGEM Normal [facility] CBC W Auto Differential pane l (Bld)on 06-06-2024 Basophils (Bld) [#/Vol] 0.08 10*3/uL Normal <0.[address] [facility] Comment on above: Order Comment: Speci men Type: BLOOD SPECIMENOrdering Facility: [facility] Address: [address] [place] [address] Performed By: #### 5 7021-8 ####LERNER LABORATORYCLIA [id number] [place] [address] [place] Basophils/100 WBC (Bld) 0.8 % Normal [facility] Comment on above: Order Comment: Speci men Type: BLOOD SPECIMENOrdering Facility: [facility] Address: [address] [place] [address] Performed By: #### 5 7021-8 ####LERNER LABORATORYCLIA [id number] [place] [address] [place] Differential cell count method Nom (Bld) Auto Normal [facility] Comment on above: Order Comment: Speci men Type: BLOOD SPECIMENOrdering Facility: [facility] Address: [address] [place] [address] Performed By: #### 5 7021-8 ####LERNER LABORATORYCLIA [id number] [place] [address] [place] Eosinophils (Bld) [#/Vol] 0.42 10*3/uL Normal <0.[address] [facility] Comment on above: Order Comment: Speci men Type: BLOOD SPECIMENOrdering Facility: [facility] Address: [address] [place] [address] Performed By: #### 5 7021-8 ####LERNER LABORATORYCLIA [id number] [place] [address] [place] Eosinophils/100 WBC (Bld) 4.1 % Normal [facility] Comment on above: Order Comment: Speci men Type: BLOOD SPECIMENOrdering Facility: [facility] Address: [address] [place] [address] Performed By: #### 5 7021-8 ####LERNER LABORATORYCLIA [id number] [place] [address] [place] Erythrocyte distribution width (RBC) [Ratio] 15.7 % High 11.5-15.[address] [facility] Comment on above: Order Comment: Speci men Type: BLOOD SPECIMENOrdering Facility: [facility] Address: [address] [place] [address] Performed By: #### 5 7021-8 ####LERNER LABORATORYCLIA [id number] [place] [address] [place] Hematocrit (Bld) [Volume fraction] 37.7 % Low 39.0-51.[address] [facility] Comment on above: Order Comment: Speci men Type: BLOOD SPECIMENOrdering Facility: [facility] Address: [address] [place] [address] Performed By: #### 5 7021-8 ####LERNER LABORATORYCLIA [id number] [place] [address] [place] Hemoglobin (Bld) [Mass/Vol] 11.8 g/dL Low 13.0-17.[address] [facility] Comment on above: Order Comment: Speci men Type: BLOOD SPECIMENOrdering Facility: [facility] Address: [address] [place] [address] Performed By: #### 5 7021-8 ####LERNER LABORATORYCLIA [id number] [place] [address] [place] Immature granulocytes (Bld) [#/Vol] 0.07 10*3/uL Normal <0.[address] [facility] Comment on above: Order Comment: Speci men Type: BLOOD SPECIMENOrdering Facility: [facility] Address: [address] [place] [address] Performed By: #### 5 7021-8 ####LERNER LABORATORYCLIA [id number] [place] [address] [facility] [place] Immature granulocytes/100 WBC (Bld) 0.7 % Normal [facility] Comment on above: Order Comment: Speci men Type: BLOOD SPECIMENOrdering Facility: [facility] Address: [address] [place] [address] Performed By: #### 5 7021-8 ####LERNER LABORATORYCLIA [id number] [address] Lymphocytes (Bld) [#/Vol] 1.73 10*3/uL Normal 1.00-4.[address] [facility] Comment on above: Order Comment: Speci men Type: BLOOD SPECIMENOrdering Facility: [facility] Address: [address] [place] [address] Performed By: #### 5 7021-8 ####LERNER LABORATORYCLIA [id number] [address] Lymphocytes/100 WBC (Bld) 16.7 % Normal [facility] Comment on above: Order Comment: Speci men Type: BLOOD SPECIMENOrdering Facility: [facility] Address: [address] [place] [address] Performed By: #### 5 7021-8 ####LERNER LABORATORYCLIA [id number] [address] [place] [facility] MCH (RBC) [Entitic mass] 28.0 pg Normal 26.0-34.[address] [facility] Comment on above: Order Comment: Speci men Type: BLOOD SPECIMENOrdering Facility: [facility] Address: [address] [place] [address] Performed By: #### 5 7021-8 ####LERNER LABORATORYCLIA [id number] [address] MCHC (RBC) [Mass/Vol] 31.3 g/dL Normal 30.5-36.0 [facility] Comment on above: Order Comment: Speci men Type: BLOOD SPECIMENOrdering Facility: [facility] Address: [address] [place] [address] Performed By: #### 5 7021-8 ####LERNER LABORATORYCLIA [id number] [address] MCV (RBC) [Entitic vol] 89.3 fL Normal 80.0-100.0 [facility] Comment on above: Order Comment: Speci men Type: BLOOD SPECIMENOrdering Facility: [facility] Address: [address] [place] [address] Performed By: #### 5 7021-8 ####LERNER LABORATORYCLIA [id number] [place] [address] [place] Monocytes (Bld) [#/Vol] 0.86 10*3/uL Normal <0.[address] [facility] Comment on above: Order Comment: Speci men Type: BLOOD SPECIMENOrdering Facility: [facility] Address: [address] [place] [address] Performed By: #### 5 7021-8 ####LERNER LABORATORYCLIA [id number] [place] [address] [place] Monocytes/100 WBC (Bld) 8.3 % Normal [facility] Comment on above: Order Comment: Speci men Type: BLOOD SPECIMENOrdering Facility: [facility] Address: [address] [place] [address] Performed By: #### 5 7021-8 ####LERNER LABORATORYCLIA [id number] [address] [place] Neutrophils (Bld) [#/Vol] 7.21 10*3/uL Normal 1.45-7.[address] [facility] Comment on above: Order Comment: Speci men Type: BLOOD SPECIMENOrdering Facility: [facility] Address: [address] [place] [address] Performed By: #### 5 7021-8 ####LERNER LABORATORYCLIA [id number] [address] [place] Neutrophils/100 WBC (Bld) 69.4 % Normal [facility] Comment on above: Order Comment: Speci men Type: BLOOD SPECIMENOrdering Facility: [facility] Address: [address] [place] [address] Performed By: #### 5 7021-8 ####LERNER LABORATORYCLIA [id number] [place] [address] [place] Nucleated RBC (Bld) [#/Vol] 10*3/uL Normal <0.[address] [facility] Comment on above: Order Comment: Speci men Type: BLOOD SPECIMENOrdering Facility: [facility] Address: [address] [place] [address] Performed By: #### 5 7021-8 ####LERNER LABORATORYCLIA [id number] [place] [address] [place] Nucleated RBC/100 WBC (Bld) [Ratio] 0.0 /100 WBC Normal [facility] Comment on above: Order Comment: Speci men Type: BLOOD SPECIMENOrdering Facility: [facility] Address: [address] [place] [address] Performed By: #### 5 7021-8 ####LERNER LABORATORYCLIA [id number] [place] [address] [place] Platelet mean volume (Bld) [Entitic vol] 10.0 fL Normal 9.0-12.[address] [facility] Comment on above: Order Comment: Speci men Type: BLOOD SPECIMENOrdering Facility: [facility] Address: [address] [place] [address] Performed By: #### 5 7021-8 ####LERNER LABORATORYCLIA [id number] [address] [place] Platelets (Bld) [#/Vol] 194 10*3/uL Normal 150-[address] [facility] Comment on above: Order Comment: Speci men Type: BLOOD SPECIMENOrdering Facility: [facility] Address: [address] [place] [address] Performed By: #### 5 7021-8 ####LERNER LABORATORYCLIA [id number] [address] [place] RBC (Bld) [#/Vol] 4.22 10*6/uL Normal 4.20-6.00 [facility] Comment on above: Order Comment: Speci men Type: BLOOD SPECIMENOrdering Facility: [facility] Address: [address] [place] [address] Performed By: #### 5 7021-8 ####LERNER LABORATORYCLIA [id number] [address] WBC (Bld) [#/Vol] 10.37 10*3/uL Normal 3.70-11.00 [facility] Comment on above: Order Comment: Speci men Type: BLOOD SPECIMENOrdering Facility: [facility] Address: [place] [address] Performed By: #### 5 7021-8 ####LATONIA LABORATORYCLIA [id number] [address] [place] CNCOon 06-06-[address] [facility] CNDSon 06-06-[address] [facility] CONSULT PROGon 06-06-[address] [facility] CONSULT PROG [facility] Magnesium SerPl-mCncon 06-06 Magnesium [Mass/Vol] 2.1 mg/dL Normal 1.7-2.3 [facility] Comment on above: Order Comment: Speci men Type: BLOOD SPECIMENOrdering Facility: [facility] Address: [facility] [place] [address] Performed By: #### 2 4321-2, 23870-5 ####LATONIA LABORATORYCLIA [id number] [address] THERAPY NTon 06-06-[address] [facility] Vancomycin [facility] Vancomycin random [Mass/Vol] 14.8 ug/mL Normal 10.0-20.[address] [facility] Comment on above: Order Comment: Speci men Type: BLOOD SPECIMENOrdering Facility: [facility] Address: [place] [address] Result Comment: Refe rence ranges and high/low indicator flags are provided as general guidelines only. The treating physician must determine appropriate target levels/dosing based on the specific clinical situation. Performed By: #### 4 091-5 ####LATONIA LABORATORYCLIA [id number] [address] [place] ANES POSTPROC EVALon [address] [facility] ANES PRE-OPon 06-05-2024 ANES PRE-OP [facility] BRIEF OP NOTon 06-05-[address] [facility] Bacteria Spec Anaerobe Culto n 06-05-2024 Bacteria identified Anaer cx Nom (Unsp spec) Negative [facility] Comment on above: Performed By: #### 6 462-6, 635-3 ####[facility] LABCLIA [id number] [facility] [address] [address] [place] Bacteria identified Anaer cx Nom (Unsp spec) Negative Normal [facility] Comment on above: Performed By: #### 6 35-3, 58771-3, 76138-2 ####[facility] LABCLIA [id number] [address] [address] [place] Bacteria Tiss Culton 024 Bacteria identified Cx Nom (Tiss) ORGANISM ID: 1 Rare skin mickey GRAM STAIN: No organisms seen No Polymorphonuclear Leukocytes Abnormal [facility] Comment on above: Performed By: #### 6 35-3, 04492-5, 55538-5 ####[facility] LABCLIA [id number] [address] [address] [place] Bacteria Wnd Culton 06-05-20 24 Bacteria identified Cx Nom (Wound) ORGANISM ID: 1 Rare Staphylococcus epidermidis No further workup GRAM STAIN: No organisms seen Rare Polymorphonuclear leukocytes Abnormal [facility] Comment on above: Performed By: #### 6 462-6, 635-3 ####[facility] LABCLIA [id number] [address] [address] [place] Basic metabolic 2000 panelon 06-05-2024 Anion gap [Moles/Vol] 8 mmol/L Normal 8-15 [facility] Comment on above: Order Comment: Speci men Type: BLOOD SPECIMENOrdering Facility: [facility] Address: [address] [place] [address] Performed By: #### 2 4321-2, 52777-7 ####LATONIA LABORATORYCLIA [id number] [place] [address] [place] Calcium [Mass/Vol] 9.0 mg/dL Normal 8.5-10.[address] [facility] Comment on above: Order Comment: Speci men Type: BLOOD SPECIMENOrdering Facility: [facility] Address: [address] [place] [address] Performed By: #### 2 4321-2, ####LERNER LABORATORYCLIA [id number] [place] [address] [place] Chloride [Moles/Vol] 104 mmol/L Normal 98-107 [facility] [place] Comment on above: Order Comment: Specalejandro carrillo Type: BLOOD SPECIMENOrdering Facility: [facility] Address: [address] [place] [address] Performed By: #### 2 4321-2, ####LERNER LABORATORYCLIA [id number] [place] [address] [place] CO2 [Moles/Vol] 28 mmol/L Normal 22-[address] [facility] Comment on above: Order Comment: Raudel carrillo Type: BLOOD SPECIMENOrdering Facility: [facility] Address: [address] [place] [address] Performed By: #### 2 4321-2, ####LERNER LABORATORYCLIA [id number] [place] [id number] [place] Creatinine [Mass/Vol] 1.15 mg/dL Normal 0.73-1.22 [facility] Comment on above: Order Comment: Raudel carrillo Type: BLOOD SPECIMENOrdering Facility: [facility] Address: [address] [place] [address] Performed By: #### 2 4321-2, ####LERNER LABORATORYCLIA [id number] [place] [id number] [facility] Creatinine and Glomerular filtration rate.predicted panel (S/P/Bld) 70 mL/min/1.73m??? Normal >=[address] [facility] Comment on above: Order Comment: Raudel carrillo Type: BLOOD SPECIMENOrdering Facility: [facility] Address: [address] [place] [address] Result Comment: Sachi mated Glomerular Filtration Rate (eGFR) is calculated using the 2020 CKD-EPI creatinine equation. This equation utilizes serum creatinine, sex, and age as parameters. The creatinine assay has traceable calibration to isotope dilution-mass spectrometry. Refer to KDIGO guidelines for clinical interpretation. In patients with unstable renal function, e.g. those with acute kidney injury, the eGFR may not accurately reflect actual GFR. Performed By: #### 2 43206-19, ####LERNER LABORATORYCLIA [id number] [place] [id number] [place] Glucose [Mass/Vol] 149 mg/dL High 74-[address] [facility] Comment on above: Order Comment: Raudel carrillo Type: BLOOD SPECIMENOrdering Facility: [facility] Address: [address] [place] [address] Result Comment: The [place] [employer] (ADA) provides guidance for cutoff values for fasting glucose and random glucose. The ADA defines fasting as no caloric intake for at least 8 hours. Fasting plasma glucose results between 100 to 125 mg/dL indicate increased risk for diabetes (prediabetes).Fasting plasma glucose results greater than or equal to 126 mg/dL meet the criteria for diagnosis of diabetes. In the absence of unequivocal hyperglycemia, results should be confirmed by repeat testing. In a patient with classic symptoms of hyperglycemia or hyperglycemic crisis, random plasma glucose results greater than or equal to 200 mg/dL meet the criteria for diagnosis of diabetes.Reference: Standards of Medical Care in Diabetes 2016, [place] [employer]. Diabetes Care. 2016.39(Suppl 1). Performed By: #### 2 4320-07, ####LERNER LABORATORYCLIA [id number] [place] [address] [place] Potassium [Moles/Vol] 4.0 mmol/L Normal 3.7-5.1 [facility] Comment on above: Order Comment: Raudel carrillo Type: BLOOD SPECIMENOrdering Facility: [facility] Address: [address] [place] [address] Performed By: #### 2 4320-07, ####LERNER LABORATORYCLIA [id number] [place] [address] [place] Sodium [Moles/Vol] 140 mmol/L Normal 136-[address] [facility] Comment on above: Order Comment: Raudel carrillo Type: BLOOD SPECIMENOrdering Facility: [facility] Address: [address] [place], [place] [address] Performed By: #### 2 4320-07, ####LERNER LABORATORYCLIA [id number] [place] [address] [place] Urea nitrogen [Mass/Vol] 15 mg/dL Normal 9-[address] [facility] Comment on above: Order Comment: Speci men Type: BLOOD SPECIMENOrdering Facility: [facility] Address: [address] [place] [address] Performed By: #### 2 4321-2, 98208-8 ####LERNER LABORATORYCLIA [id number] [place] [address] [place] CASE MANAGEMon 06-05-2024 CASE MANAGEM Normal [facility] CBC W Auto Differential pane l (Bld)on 06-05-2024 Basophils (Bld) [#/Vol] 0.09 10*3/uL Normal <0.[address] [facility] Comment on above: Order Comment: Speci men Type: BLOOD SPECIMENOrdering Facility: [facility] Address: [address] [place] [address] Performed By: #### 5 7021-8 ####LERNER LABORATORYCLIA [id number] [place] [id number] [place] Basophils/100 WBC (Bld) 1.0 % Normal [facility] Comment on above: Order Comment: Speci men Type: BLOOD SPECIMENOrdering Facility: [facility] Address: [address] [place] [address] Performed By: #### 5 7021-8 ####LERNER LABORATORYCLIA [id number] [place] [id number] [place] Differential cell count method Nom (Bld) Auto Normal [facility] Comment on above: Order Comment: Speci men Type: BLOOD SPECIMENOrdering Facility: [facility] Address: [address] [place] [address] Performed By: #### 5 7021-8 ####LERNER LABORATORYCLIA [id number] [place] [id number] [place] Eosinophils (Bld) [#/Vol] 0.31 10*3/uL Normal <0.[address] [facility] Comment on above: Order Comment: Speci men Type: BLOOD SPECIMENOrdering Facility: [facility] Address: [address] [place] [address] Performed By: #### 5 7021-8 ####LERNER LABORATORYCLIA [id number] [place] [address] [place] Eosinophils/100 WBC (Bld) 3.3 % Normal [facility] Comment on above: Order Comment: Speci men Type: BLOOD SPECIMENOrdering Facility: [facility] Address: [address] [place] [address] Performed By: #### 5 7021-8 ####LERNER LABORATORYCLIA [id number] [place] [address] [place] Erythrocyte distribution width (RBC) [Ratio] 15.6 % High 11.5-15.[address] [facility] Comment on above: Order Comment: Speci men Type: BLOOD SPECIMENOrdering Facility: [facility] Address: [address] [place] [address] Performed By: #### 5 7021-8 ####LERNER LABORATORYCLIA [id number] [address] [place] Hematocrit (Bld) [Volume fraction] 40.6 % Normal 39.0-51.[address] [facility] Comment on above: Order Comment: Speci men Type: BLOOD SPECIMENOrdering Facility: [facility] Address: [address] [place] [address] Performed By: #### 5 7021-8 ####LERNER LABORATORYCLIA [id number] [address] [place] Hemoglobin (Bld) [Mass/Vol] 12.6 g/dL Low 13.0-17.[address] [facility] Comment on above: Order Comment: Speci men Type: BLOOD SPECIMENOrdering Facility: [facility] Address: [address] [place] [address] Performed By: #### 5 7021-8 ####LERNER LABORATORYCLIA [id number] [address] Immature granulocytes (Bld) [#/Vol] 0.04 10*3/uL Normal <0.[address] [facility] Comment on above: Order Comment: Speci men Type: BLOOD SPECIMENOrdering Facility: [facility] Address: [address] [place] [address] Performed By: #### 5 7021-8 ####LERNER LABORATORYCLIA [id number] [address] [place] Immature granulocytes/100 WBC (Bld) 0.4 % Normal [facility] Comment on above: Order Comment: Speci men Type: BLOOD SPECIMENOrdering Facility: [facility] Address: [address] [place] [address] Performed By: #### 5 7021-8 ####LERNER LABORATORYCLIA [id number] [place] [address] [place] Lymphocytes (Bld) [#/Vol] 1.76 10*3/uL Normal 1.00-4.[address] [facility] Comment on above: Order Comment: Speci men Type: BLOOD SPECIMENOrdering Facility: [facility] Address: [address] [place] [address] Performed By: #### 5 7021-8 ####LERNER LABORATORYCLIA [id number] [address] [place] Lymphocytes/100 WBC (Bld) 18.9 % Normal [facility] Comment on above: Order Comment: Speci men Type: BLOOD SPECIMENOrdering Facility: [facility] Address: [address] [place] [address] Performed By: #### 5 7021-8 ####LERNER LABORATORYCLIA [id number] [address] [place] MCH (RBC) [Entitic mass] 27.6 pg Normal 26.0-34.[address] [facility] Comment on above: Order Comment: Speci men Type: BLOOD SPECIMENOrdering Facility: [facility] Address: [address] [place] [address] Performed By: #### 5 7021-8 ####LERNER LABORATORYCLIA [id number] [address] [place] MCHC (RBC) [Mass/Vol] 31.0 g/dL Normal 30.5-36.0 [facility] Comment on above: Order Comment: Speci men Type: BLOOD SPECIMENOrdering Facility: [facility] Address: [address] [place] [address] Performed By: #### 5 7021-8 ####LERNER LABORATORYCLIA [id number] [place] [address] [place] MCV (RBC) [Entitic vol] 88.8 fL Normal 80.0-100.0 [facility] Comment on above: Order Comment: Speci men Type: BLOOD SPECIMENOrdering Facility: [facility] Address: [address] [place] [address] Performed By: #### 5 7021-8 ####LERNER LABORATORYCLIA [id number] [place] [address] [place] Monocytes (Bld) [#/Vol] 0.95 10*3/uL High <0.[address] [facility] Comment on above: Order Comment: Speci men Type: BLOOD SPECIMENOrdering Facility: [facility] Address: [address] [place] [address] Performed By: #### 5 7021-8 ####LERNER LABORATORYCLIA [id number] [place] [address] [place] Monocytes/100 WBC (Bld) 10.2 % Normal [facility] Comment on above: Order Comment: Speci men Type: BLOOD SPECIMENOrdering Facility: [facility] Address: [address] [place] [address] Performed By: #### 5 7021-8 ####LERNER LABORATORYCLIA [id number] [place] [address] [place] Neutrophils (Bld) [#/Vol] 6.16 10*3/uL Normal 1.45-7.[address] [facility] Comment on above: Order Comment: Speci men Type: BLOOD SPECIMENOrdering Facility: [facility] Address: [address] [place] [address] Performed By: #### 5 7021-8 ####LERNER LABORATORYCLIA [id number] [place] [address] [place] Neutrophils/100 WBC (Bld) 66.2 % Normal [facility] Comment on above: Order Comment: Speci men Type: BLOOD SPECIMENOrdering Facility: [facility] Address: [address] [place] [address] Performed By: #### 5 7021-8 ####LERNER LABORATORYCLIA [id number] [place] [address] [place] Nucleated RBC (Bld) [#/Vol] 10*3/uL Normal <0.[address] [facility] Comment on above: Order Comment: Speci men Type: BLOOD SPECIMENOrdering Facility: [facility] Address: [address] [place] [address] Performed By: #### 5 7021-8 ####LERNER LABORATORYCLIA [id number] [place] [address] [place] Nucleated RBC/100 WBC (Bld) [Ratio] 0.0 /100 WBC Normal [facility] Comment on above: Order Comment: Speci men Type: BLOOD SPECIMENOrdering Facility: [facility] Address: [address] [place] [address] Performed By: #### 5 7021-8 ####LERNER LABORATORYCLIA [id number] [place] [address] [place] Platelet mean volume (Bld) [Entitic vol] 10.2 fL Normal 9.0-12.[address] [facility] Comment on above: Order Comment: Speci men Type: BLOOD SPECIMENOrdering Facility: [facility] Address: [address] [place] [address] Performed By: #### 5 7021-8 ####LERNER LABORATORYCLIA [id number] [place] [address] [place] Platelets (Bld) [#/Vol] 195 10*3/uL Normal 150-[address] [facility] Comment on above: Order Comment: Speci men Type: BLOOD SPECIMENOrdering Facility: [facility] Address: [address] [place] [address] Performed By: #### 5 7021-8 ####LERNER LABORATORYCLIA [id number] [place] [address] [place] RBC (Bld) [#/Vol] 4.57 10*6/uL Normal 4.20-6.00 [facility] Comment on above: Order Comment: Speci men Type: BLOOD SPECIMENOrdering Facility: [facility] Address: [address] [place] [address] Performed By: #### 5 7021-8 ####LATONIA LABORATORYCLIA [id number] [place] [address] [place] WBC (Bld) [#/Vol] 9.31 10*3/uL Normal 3.70-11.00 [facility] Comment on above: Order Comment: Speci men Type: BLOOD SPECIMENOrdering Facility: [facility] Address: [address] [place] [address] Performed By: #### 5 7021-8 ####LATONIA LABORATORYCLIA [id number] [place] [address] [place] CONSULT PROGon 06-05-[address] [facility] CON[facility]ULT PROG [facility] Magnesium SerPl-mCncon 06-05 Magnesium [Mass/Vol] 2.1 mg/dL Normal 1.7-2.3 [facility] [place] Comment on above: Order Comment: Speci men Type: BLOOD SPECIMENOrdering Facility: [facility] Address: [address] [place] [address] Performed By: #### 2 4321-2, 47636-1 ####LATONIA LABORATORYCLIA [id number] [place] [address] [place] Microorganism Spec Culton Microorganism identified Cx Nom (Unsp spec) CULTURE, AFB: No Acid Fast Bacilli isolated after 42 days AFB STAIN: No acid fast bacilli seen by fluorochrome stain [facility] Comment on above: Performed By: #### 6 35-3, 96552-2, 37439-8 ####[facility] LABCLIA [id number] [facility] [id number] [place], [place] [address] [place] NUTRITIONon 06-05-[address] [facility] OPERATIVE NOon 06-05-[address] [facility] SURGICAL PATHOLOGYon [address] [facility] Comment on above: Order Comment: Speci men Type: TISSUE SPECIMENOrdering Facility: [facility] Address: [address] [place] [address] Result Comment: Surg ica Pathology Report Case: [id number] Provider: Brandon Rubin DPM Collected: 06/05/2024 09:39 AMOrdering Location: [facility] Surgery Received: 06/05/2024 11:27 AMPathologist: Sheree Wright MDSpecimens: A) - Bone, Resection, Left first metatarsal head B) - Digit, Left Foot, First, Left great toe Performed By: #### S ####[facility] LABCLIA [id number] [address] OF [facility] CLINICAL HISTORY Normal [facility] Comment on above: Order Comment: Speci men Type: TISSUE SPECIMENOrdering Facility: [facility] Address: [address] [place] [address] Result Comment: Pre- op diagnosis:Osteomyelitis of ankle or foot, acute, left (HCC) [M86.172] Performed By: #### S ####[facility] LABCLIA [id number] [address] FINAL DIAGNOSIS Normal [facility] Comment on above: Order Comment: Speci men Type: TISSUE SPECIMENOrdering Facility: [facility] Address: [address] [place] [address] Result Comment: A Fi rst metatarsal, left, resection:- Bone with marrow edema and bony remodeling. Negative for acute osteomyelitis.B. First digit, left foot, amputation:- Skin and soft tissue with granulation tissue formation.- Chronic osteomyelitis. Performed By: #### S ####[facility] LABCLIA [id number] [address] FINAL PERFORMING LAB Normal [facility] [place] Comment on above: Order Comment: Speci men Type: TISSUE SPECIMENOrdering Facility: [facility] Address: [address] [place] [address] Result Comment: Diag nostic interpretation performed at [facility], [address] [place] [address] CLIA# [id number] Director: Sedrick Corona M.D. Performed By: #### S ####[facility] LABIA [id number] [place] [address] [place] GROSS DESCRIPTION Normal [facility] Comment on above: Order Comment: Speci men Type: TISSUE SPECIMENOrdering Facility: [facility] Address: [address] [place] [address] Result Comment: A. B one, ResectionReceived in formalin, labeled "left first metatarsal head, bone resection" is a segment of velásquez-pink, firm bone with a scant amount of attached soft tissue, measuring 1.8 x 1.5 x 0.7 cm. Sectioning reveals mildly softened bone cut surfaces. The specimen is entirely submitted in cassette A1, following light decalcification in formic acid.B. Digit, Left Foot, FirstReceived in formalin, labeled "left great toe" is a digit disarticulation specimen, overall measuring 6.3 x 3.8 x 3.3 cm. The specimen is approximately 50% surfaced by hyfr-zmi-zgdv, diffusely sloughing skin. A markedly thickened, yellow-black nail is present. Nevus of skin is remarkable for a 1.5 x 1.5 cm area of ulceration, which is sectioned to reveal underlying softened bone. A employee relations representative section, to include ulcer and underlying bone, submitted in cassette B1, following light decalcification in formic acid.AKA June 05, 2024 4:01 PMGross examination performed at [facility], [address] [place] [address] Performed By: #### S ####[facility] [id number] [place] [address] [place] Basic metabolic 2000 panelon 06-04-2024 Anion gap [Moles/Vol] 9 mmol/L Normal 8-15 [facility] Comment on above: Order Comment: Speci men Type: BLOOD SPECIMENOrdering Facility: [facility] Address: [address] [place] [address] Performed By: #### 1 9123-9, 39282-6 ####LERNER LABORATORYCLIA [id number] [place] [address] [place] Calcium [Mass/Vol] 8.7 mg/dL Normal 8.5-10.[address] [facility] Comment on above: Order Comment: Speci men Type: BLOOD SPECIMENOrdering Facility: [facility] Address: [address] [place] [address] Performed By: #### 1 9123-9, 67550-3 ####LERNER LABORATORYCLIA [id number] [place] [address] [place] Chloride [Moles/Vol] 105 mmol/L Normal 98-107 [facility] [place] Comment on above: Order Comment: Speci men Type: BLOOD SPECIMENOrdering Facility: [facility] Address: [address] [place] [address] Performed By: #### 1 9123-9, 32221-8 ####LERNER LABORATORYCLIA [id number] [place] [address] [place] CO2 [Moles/Vol] 27 mmol/L Normal 22-[address] [facility] Comment on above: Order Comment: Speci men Type: BLOOD SPECIMENOrdering Facility: [facility] Address: [address] [place] [address] Performed By: #### 1 9123-9, 84939-2 ####LERNER LABORATORYCLIA [id number] [place] [address] [place] Creatinine [Mass/Vol] 1.11 mg/dL Normal 0.73-1.22 [facility] Comment on above: Order Comment: Speci men Type: BLOOD SPECIMENOrdering Facility: [facility] Address: [address] [place] [address] Performed By: #### 1 9123-9, 59922-6 ####LERNER LABORATORYCLIA [id number] [address] [place] Creatinine and Glomerular filtration rate.predicted panel (S/P/Bld) 73 mL/min/1.73m??? Normal >=[address] [facility] Comment on above: Order Comment: Speci men Type: BLOOD SPECIMENOrdering Facility: [facility] Address: [address] [place] [address] Result Comment: Sachi mated Glomerular Filtration Rate (eGFR) is calculated using the 2020 CKD-EPI creatinine equation. This equation utilizes serum creatinine, sex, and age as parameters. The creatinine assay has traceable calibration to isotope dilution-mass spectrometry. Refer to KDIGO guidelines for clinical interpretation. In patients with unstable renal function, e.g. those with acute kidney injury, the eGFR may not accurately reflect actual GFR. Performed By: #### 1 9123-9, 70175-0 ####LATONIA LABORATORYCLIA [id number] [place] [id number] [place] Glucose [Mass/Vol] 147 mg/dL High 74-[address] [facility] Comment on above: Order Comment: Raudel carrillo Type: BLOOD SPECIMENOrdering Facility: [facility] Address: [address] [place] [address] Result Comment: The [place] [employer] (ADA) provides guidance for cutoff values for fasting glucose and random glucose. The ADA defines fasting as no caloric intake for at least 8 hours. Fasting plasma glucose results between 100 to 125 mg/dL indicate increased risk for diabetes (prediabetes).Fasting plasma glucose results greater than or equal to 126 mg/dL meet the criteria for diagnosis of diabetes. In the absence of unequivocal hyperglycemia, results should be confirmed by repeat testing. In a patient with classic symptoms of hyperglycemia or hyperglycemic crisis, random plasma glucose results greater than or equal to 200 mg/dL meet the criteria for diagnosis of diabetes.Reference: Standards of Medical Care in Diabetes 2016, [place] [employer]. Diabetes Care. 2016.39(Suppl 1). Performed By: #### 1 9123-9, 53496-3 ####LATONIA LABORATORYCLIA [id number] [place] [address] [place] Potassium [Moles/Vol] 3.9 mmol/L Normal 3.7-5.1 [facility] Comment on above: Order Comment: Raudel carrillo Type: BLOOD SPECIMENOrdering Facility: [facility] Address: [address] [place] [id number] Performed By: #### 1 9123-9, 60794-0 ####LERNER LABORATORYCLIA [id number] [address] STATES [facility] Sodium [Moles/Vol] 141 mmol/L Normal 136-[address] [facility] Comment on above: Order Comment: Speci men Type: BLOOD SPECIMENOrdering Facility: [facility] Address: [address] [place] [address] Performed By: #### 1 9123-9, 99055-7 ####LERNER LABORATORYCLIA [id number] [address] STATES [facility] Urea nitrogen [Mass/Vol] 13 mg/dL Normal 9-[address] [facility] Comment on above: Order Comment: Speci men Type: BLOOD SPECIMENOrdering Facility: [facility] Address: [address] [place] [address] Performed By: #### 1 9123-9, 04409-0 ####LERNER LABORATORYCLIA [id number] [address] CBC W Auto Differential pane l (Bld)on 06-04-2024 Basophils (Bld) [#/Vol] 0.07 10*3/uL Normal <0.[address] [facility] Comment on above: Order Comment: Speci men Type: BLOOD SPECIMENOrdering Facility: [facility] Address: [address] [place] [address] Performed By: #### 5 7021-8 ####LERNER LABORATORYCLIA [id number] [address] Basophils/100 WBC (Bld) 0.8 % Normal [facility] Comment on above: Order Comment: Speci men Type: BLOOD SPECIMENOrdering Facility: [facility] Address: [address] [place] [address] Performed By: #### 5 7021-8 ####LERNER LABORATORYCLIA [id number] [address] Differential cell count method Nom (Bld) Auto Normal [facility] Comment on above: Order Comment: Speci men Type: BLOOD SPECIMENOrdering Facility: [facility] Address: [address] [place] [address] Performed By: #### 5 7021-8 ####LERNER LABORATORYCLIA [id number] [place] [address] [place] Eosinophils (Bld) [#/Vol] 0.19 10*3/uL Normal <0.[address] [facility] Comment on above: Order Comment: Speci men Type: BLOOD SPECIMENOrdering Facility: [facility] Address: [address] [place] [address] Performed By: #### 5 7021-8 ####LERNER LABORATORYCLIA [id number] [address] [place] Eosinophils/100 WBC (Bld) 2.1 % Normal [facility] Comment on above: Order Comment: Speci men Type: BLOOD SPECIMENOrdering Facility: [facility] Address: [address] [place] [address] Performed By: #### 5 7021-8 ####LERNER LABORATORYCLIA [id number] [address] [place] Erythrocyte distribution width (RBC) [Ratio] 15.7 % High 11.5-15.[address] [facility] Comment on above: Order Comment: Speci men Type: BLOOD SPECIMENOrdering Facility: [facility] Address: [address] [place] [address] Performed By: #### 5 7021-8 ####LERNER LABORATORYCLIA [id number] [address] Hematocrit (Bld) [Volume fraction] 40.7 % Normal 39.0-51.[address] [facility] Comment on above: Order Comment: Speci men Type: BLOOD SPECIMENOrdering Facility: [facility] Address: [address] [place] [address] Performed By: #### 5 7021-8 ####LERNER LABORATORYCLIA [id number] [address] [place] Hemoglobin (Bld) [Mass/Vol] 12.8 g/dL Low 13.0-17.[address] [facility] Comment on above: Order Comment: Speci men Type: BLOOD SPECIMENOrdering Facility: [facility] Address: [address] [place] [address] Performed By: #### 5 7021-8 ####LERNER LABORATORYCLIA [id number] [address] [place] Immature granulocytes (Bld) [#/Vol] 0.05 10*3/uL Normal <0.[address] [facility] Comment on above: Order Comment: Speci men Type: BLOOD SPECIMENOrdering Facility: [facility] Address: [address] [place] [address] Performed By: #### 5 7021-8 ####LERNER LABORATORYCLIA [id number] [address] Immature granulocytes/100 WBC (Bld) 0.6 % Normal [facility] Comment on above: Order Comment: Speci men Type: BLOOD SPECIMENOrdering Facility: [facility] Address: [address] [place] [address] Performed By: #### 5 7021-8 ####LERNER LABORATORYCLIA [id number] [place] [address] [place] Lymphocytes (Bld) [#/Vol] 1.65 10*3/uL Normal 1.00-4.[address] [facility] Comment on above: Order Comment: Speci men Type: BLOOD SPECIMENOrdering Facility: [facility] Address: [address] [place] [address] Performed By: #### 5 7021-8 ####LERNER LABORATORYCLIA [id number] [address] Lymphocytes/100 WBC (Bld) 18.6 % Normal [facility] Comment on above: Order Comment: Speci men Type: BLOOD SPECIMENOrdering Facility: [facility] Address: [address] [place] [address] Performed By: #### 5 7021-8 ####LERNER LABORATORYCLIA [id number] [place] [address] [place] MCH (RBC) [Entitic mass] 28.0 pg Normal 26.0-34.[address] [facility] Comment on above: Order Comment: Speci men Type: BLOOD SPECIMENOrdering Facility: [facility] Address: [address] [place] [address] Performed By: #### 5 7021-8 ####LERNER LABORATORYCLIA [id number] [address] STATES [facility] MCHC (RBC) [Mass/Vol] 31.4 g/dL Normal 30.5-36.0 [facility] Comment on above: Order Comment: Speci men Type: BLOOD SPECIMENOrdering Facility: [facility] Address: [address] [place] [address] Performed By: #### 5 7021-8 ####LERNER LABORATORYCLIA [id number] [address] [place] MCV (RBC) [Entitic vol] 89.1 fL Normal 80.0-100.0 [facility] Comment on above: Order Comment: Speci men Type: BLOOD SPECIMENOrdering Facility: [facility] Address: [address] [place] [address] Performed By: #### 5 7021-8 ####LERNER LABORATORYCLIA [id number] [address] [place] Monocytes (Bld) [#/Vol] 1.05 10*3/uL High <0.[address] [facility] Comment on above: Order Comment: Speci men Type: BLOOD SPECIMENOrdering Facility: [facility] Address: [address] [place] [address] Performed By: #### 5 7021-8 ####LERNER LABORATORYCLIA [id number] [address] Monocytes/100 WBC (Bld) 11.8 % Normal [facility] Comment on above: Order Comment: Speci men Type: BLOOD SPECIMENOrdering Facility: [facility] Address: [address] [place] [address] Performed By: #### 5 7021-8 ####LERNER LABORATORYCLIA [id number] [address] [place] Neutrophils (Bld) [#/Vol] 5.88 10*3/uL Normal 1.45-7.[address] [facility] Comment on above: Order Comment: Speci men Type: BLOOD SPECIMENOrdering Facility: [facility] Address: [address] [place] [address] Performed By: #### 5 7021-8 ####LERNER LABORATORYCLIA [id number] [place] [address] [place] Neutrophils/100 WBC (Bld) 66.1 % Normal [facility] Comment on above: Order Comment: Speci men Type: BLOOD SPECIMENOrdering Facility: [facility] Address: [address] [place] [address] Performed By: #### 5 7021-8 ####LERNER LABORATORYCLIA [id number] [place] [address] [place] Nucleated RBC (Bld) [#/Vol] 10*3/uL Normal <0.[address] [facility] Comment on above: Order Comment: Speci men Type: BLOOD SPECIMENOrdering Facility: [facility] Address: [address] [place] [address] Performed By: #### 5 7021-8 ####LERNER LABORATORYCLIA [id number] [place] [address] [place] Nucleated RBC/100 WBC (Bld) [Ratio] 0.0 /100 WBC Normal [facility] Comment on above: Order Comment: Speci men Type: BLOOD SPECIMENOrdering Facility: [facility] Address: [address] [place] [address] Performed By: #### 5 7021-8 ####LERNER LABORATORYCLIA [id number] [place] [address] [place] Platelet mean volume (Bld) [Entitic vol] 10.1 fL Normal 9.0-12.[address] [facility] Comment on above: Order Comment: Speci men Type: BLOOD SPECIMENOrdering Facility: [facility] Address: [address] [place] [address] Performed By: #### 5 7021-8 ####LERNER LABORATORYCLIA [id number] [place] [address] [place] Platelets (Bld) [#/Vol] 194 10*3/uL Normal 150-[address] [facility] Comment on above: Order Comment: Speci men Type: BLOOD SPECIMENOrdering Facility: [facility] Address: [address] [place], [place] [address] Performed By: #### 5 7021-8 ####LERNER LABORATORYCLIA [id number] [address] STATES OF [facility] RBC (Bld) [#/Vol] 4.57 10*6/uL Normal 4.20-6.00 [facility] Comment on above: Order Comment: Speci men Type: BLOOD SPECIMENOrdering Facility: [facility] Address: [address] [place] [address] Performed By: #### 5 7021-8 ####LERNER LABORATORYCLIA [id number] [address] OF [facility] WBC (Bld) [#/Vol] 8.89 10*3/uL Normal 3.70-11.00 [facility] Comment on above: Order Comment: Speci men Type: BLOOD SPECIMENOrdering Facility: [facility] Address: [address] [place] [address] Performed By: #### 5 7021-8 ####LERNER LABORATORYCLIA [id number] [address] CONSULT PROGon 06-04-2024 CONSULT [facility] Magnesium SerPl-mCncon 06-04 Magnesium [Mass/Vol] 2.1 mg/dL Normal 1.7-2.3 [facility] [place] Comment on above: Order Comment: Speci men Type: BLOOD SPECIMENOrdering Facility: [facility] Address: [address] [place], [place] [address] Performed By: #### 1 9123-9, 14330-5 ####LERNER LABORATORYCLIA [id number] [place] [id number] [facility] [place] ALLIED HEALTHon 06-03-[address] [facility] CASE MANAGEMon 06-03-[address] [facility] CONSULT PROGon 06-03-2024 CONSULT [facility] CREATININE BLDon 06-03-2024 Creatinine [Mass/Vol] 1.02 mg/dL Normal 0.73-1.22 [facility] Comment on above: Order Comment: Speci men Type: BLOOD SPECIMENOrdering Facility: [facility] Address: [address] [place] [address] Performed By: #### C RET1 ####LATONIA LABORATORYCLIA [id number] [address] Creatinine and Glomerular filtration rate.predicted panel (S/P/Bld) 81 mL/min/1.73m??? Normal >=[address] [facility] Comment on above: Order Comment: Speci men Type: BLOOD SPECIMENOrdering Facility: [facility] Address: [address] [place] [address] Result Comment: Sachi mated Glomerular Filtration Rate (eGFR) is calculated using the 2020 CKD-EPI creatinine equation. This equation utilizes serum creatinine, sex, and age as parameters. The creatinine assay has traceable calibration to isotope dilution-mass spectrometry. Refer to KDIGO guidelines for clinical interpretation. In patients with unstable renal function, e.g. those with acute kidney injury, the eGFR may not accurately reflect actual GFR. Performed By: #### C RET1 ####LATONIA LABORATORYCLIA [id number] [address] [place] THERAPY NTon 06-03-[address] [facility] THERAPY NT Normal [facility] US PSEUDOANEURYSMon 06-03-20 24 US PSEUDOANEURYSM Normal [facility] ANES POSTPROC EVALon 024 ANES POSTPROC EVAL HNO ID: [id number] Author: NOBLE CORNEJO MD Service: Anesthesiology Author Type: Anesthesiologist Type: Anesthesia Postprocedure Evaluation Filed: 06/02/2024 21:57 Note Text: POST ANESTHESIA EVALUATION NOTE : 1955 Procedure Summary Date: 06/02/24 Room / Location: [place] / [place] Anesthesia Start: 1442 Anesthesia Stop: 1645 Procedure: ANGIOGRAM EXTREMITY LOWER; BALLOON ANGIOPLASTY OF SFA (Left: Leg lower ) Diagnosis: Stenosis of superficial femoral artery (HCC) PAD (peripheral artery disease) (HCC) Osteomyelitis of great toe of left foot (HCC) (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]) (PAD (peripheral artery disease) (HCC) [I73.9]) (Osteomyelitis of great toe of left foot (HCC) [M86.9]) Surgeons: Marsha Lucas DO Responsible Provider: Noble Cornejo MD Anesthesia Type: MAC ASA Status: 4 Anesthesia Type: MAC Last Vitals Vitals Value Taken Time BP 127/82 06/02/242129 Temp 36.3 ?C (97.3 ?F) 06/02/242129 HR SpO2 78 06/02/242155 Resp 10 06/02/242155 SpO2 93 % 06/02/242155 Vitals shown include unfiled device data. Post Anesthesia Patient Status Patient Evaluation: PACU. PACU/ICU Patient Condition: stable. Anticipated Disposition: inpatient floor planned admission. Neurological Status: aware and responsive. Pulmonary Status: breathing comfortably on supplemental oxygen Airway Control: returned to baseline unsupported. Cardiovascular Status: stable. Pain Management: clinically adequate - multimodal analgesia pain management approach Postoperative Hydration: acceptable. Intraoperative Events: no significant anesthesia events Recommendation: continue current plan of care. Anesthesia Observations No Documentation SIGNATURE: Noble Cornejo MD PATIENT NAME: Mitul Oakes DATE: June 02, 2024 TIME: 9:57 PM CSN: [id number] Normal [facility] ANES PRE-OPon 06-02-2024 ANES PRE-OP HNO ID: [id number] Author: MONTY WYATT MD Service: Anesthesiology Author Type: Anesthesiologist Type: Anesthesia Preprocedure Evaluation Filed: 06/02/2024 14:32 Note Text: ANESTHESIOLOGY DAY OF SURGERY NOTE : 1955 Procedure Information Date/Time: 06/02/24 1400 Procedure: ANGIOGRAM EXTREMITY LOWER (Left: Leg lower ) Location: [place] OR 10 / [place] Surgeons: Marsha Lucas DO Estimated body mass index is 38.87 kg/m? as calculated from the following: Height as of 05/23/24: 180.3 cm (5' 11"). Weight as of 06/01/24: 126.4 kg (278 lb 10.6 oz). Most recent hematocrit and potassium results: Hematocrit 42.4 06/02/2024 Potassium 4.2 06/02/2024 Other history: Transfer from [facility] today for vascular procedure SP left foot IANDD, wound debridement, wound vac application and bone biopsy (DOS 05/26/24); on vancomycin HTN AAA KAILEE - severe, untreated with CPAP T2DM - ozempic (last dose ~2 weeks ago), insulin COPD - Breztri CAD - PCI x 2 approx 10 years PAD s/p RLE BKA, now with wound on LLE H/o DVT - warfarin; on HOLD H/o lung CA CKD Vape marijuana Quit smoking 1.5 years ago H/o HIT Relevant Problems ANESTHESIA (+) KAILEE (obstructive sleep apnea) CARDIO (+) AAA (abdominal aortic aneurysm) (HCC) (+) CAD (coronary artery disease) (+) PAD (peripheral artery disease) ([facility]) (+) Primary hypertension ENDO (+) Type 2 diabetes mellitus (HCC) NEURO-PSYCH (+) History of DVT (deep vein thrombosis) (+) History of lung cancer PULMONARY (+) COPD (chronic obstructive pulmonary disease) ([facility]) (+) KAILEE (obstructive sleep apnea) Other (+) Osteomyelitis of great toe of left foot ([facility]) I - PHYSICAL EVALUATION AIRWAY Patient intubated: No. Tracheostomy tube not present Mallampati: III. TM distance: <3 FB. Neck ROM: limited extension. Mouth opening: adequate. Short neck: yes. Thick neck: yes Evans present: yes DENTAL Dentures, upper: complete. Dentures, lower: complete. II - ANESTHESIA PLAN ASA Score: 4 Anesthetic Plan: MAC The patient is a current smoker. NPO Status: adequate Beta Gustavo Monitoring Plan Monitoring plan: standard ASA. Post Procedure Analgesic Plan Postoperative analgesic plan: multimodal analgesia. Informed Consent Anesthetic risks, benefits, alternatives, personnel and consent discussed: yes. Patient / Responsible Republican agrees to proceed: yes Patient / Surrogate agrees to blood products: blood products not planned Significant changes in the patient condition since the History and Physical, not otherwise documented in primary service progress note: no. Potential Anesthesia issues that may suggest increased risk of complications or contraindication to planned procedure: none. No vitals data found for the desired time range. Facility-Administered Medications as of 06/02/2024 Medication Dose Route Frequency [COMPLETED] diphenhydrAMINE 25 mg capsule (BENADRYL) 25 mg ORAL ONCE [Held on Transfer - Suspended Admission] vancomycin 750 mg in D5W 250 mL Vial-Bag (VANCOCIN) 0.75 g INTRAVENOUS q 12 HR [Held on Transfer - Suspended Admission] cefTRIAXone 2 g in D5W 100 mL Vial-Bag (ROCEPHIN) 2 g INTRAVENOUS q 24 H [Held on Transfer - Suspended Admission] fluconazole 400 mg tab(s) (DIFLUCAN) 400 mg ORAL DAILY [Held on Transfer - Suspended Admission] budesonide 0.5 mg/2 mL 0.5 mg (PULMICORT) 0.5 mg INHALATION BID [Held on Transfer - Suspended Admission] ipratropium-albuterol 3 mL nebulizer solution (DUONEB) 3 mL INHALATION QID [Held on Transfer - Suspended Admission] NaCl 0.9% iv flush bag 20 mL INTRAVENOUS PRN [Held on Transfer - Suspended Admission] acetaminophen 650 mg tab(s) (TYLENOL) 650 mg ORAL q 6 H PRN [Held on Transfer - Suspended Admission] hydrOXYzine HCl 25 mg tab(s) (ATARAX) 25 mg ORAL q 6 H PRN [Held on Transfer - Suspended Admission] vancomycin dosing and monitoring per pharmacy OTHER As Directed [Held on Transfer - Suspended Admission] oxyCODONE IR 5 mg tab(s) (ROXICODONE) 5 mg ORAL q 6 H PRN [Held on Transfer - Suspended Admission] pregabalin 200 mg cap(s) (LYRICA) 200 mg ORAL TID [Held on Transfer - Suspended Admission] atorvastatin 80 mg tab(s) (LIPITOR) 80 mg ORAL DAILY [Held on Transfer - Suspended Admission] isosorbide mononitrate ER 30 mg tab(s) (IMDUR) 30 mg ORAL DAILY [Held on Transfer - Suspended Admission] spironolactone 12.5 mg tab(s) (ALDACTONE) 12.5 mg ORAL DAILY [Held on Transfer - Suspended Admission] buPROPion XL 150 mg tab(s) (WELLBUTRIN XL) 150 mg ORAL DAILY [Held on Transfer - Suspended Admission] dextrose 40 % 15 g 15 g ORAL PRN Or [Held on Transfer - Suspended Admission] glucagon 1 mg injection 1 mg INTRAMUSCULAR PRN Or [Held on Transfer - Suspended Admission] dextrose 10% iv bolus 12.5 g INTRAVENOUS PRN [Held on Transfer - Suspended Admission] insulin lispro injection (rapid acting) (ADMElog) SUBCUTANEOUS w MEALS [Held on Transfer - (more content not included)... [facility] BRIEF OP NOTon 06-02-2024 BRIEF OP NOT HNO ID: [id number] Author: MARSHA LUCAS DO Service: General Surgery Author Type: Resident Type: Brief Op Note Filed: 06/06/2024 10:58 Note Text: Attestation signed by Marsha Lucas DO at 06/06/2024 10:58 AM Marsha Lucas DO BRIEF OPERATIVE / PROCEDURE NOTE LOG ID: [id number] Surgery/Procedure Date: 06/02/2024 Incision/Procedure Start Time: 3:06 PM Incision Close/Procedure End Time: 4:42 PM Surgeon(s)/Procedural ist(s) and Retail Shift Leader(s): Surgeons and Role: * Marsha Lucas DO - Primary * Christina Rahman DO - Resident - Assisting Film Sound Coordinator: Molly Espinoza SA Procedure(s): Procedure(s): ANGIOGRAM EXTREMITY LOWER; BALLOON ANGIOPLASTY OF SFA Procedure(s): Left lower extremity angiogram with balloon angioplasty via right groin access Anesthesia: Monitored Anesthesia Care ASA Class: Findings: SFA with short segment occlusion near the adductor canal Pulses: LLE: Dopplerable DP and PT Medications: Patient anticoagulated intraoperatively with Bivalrudin Given ASA 81 mg in PACU Patient is to resume his daily 81 mg ASA and 2.5 mg Xarelto BID upon return to [facility] Radiation - 575 mGy, 10.5 min Contrast - 73 mL visi Estimated Blood Loss: 10 mls IV Fluids: Per anesthesia report Urine output: Per anesthesia report Specimens: None * No specimens in log * Complications: None Drains: None Wound Classification: Class 1, operative wound clean, non-traumatic, with no inflammation encountered, no break in technique, gastrointestinal and genitor-urinary tracts not entered PRE-OP/PRE-PROCEDURE DIAGNOSIS: LLE SFA short segment occlusion POST-OP/POST-PROCEDUR E DIAGNOSIS: Same as Preop From 5pm to 6 am and on weekends, please page surgery on-call [phone] (RNF) or [phone] (ICU) SIGNATURE: Christina Rahman DO PATIENT NAME: Mitul Oakes DATE: June 02, 2024 TIME: 5:07 PM PAGER/CONTACT #: [phone] Normal [facility] Basic metabolic 2000 panelon 06-02-2024 Anion gap [Moles/Vol] 11 mmol/L Normal 8-15 [facility] Comment on above: Order Comment: Speci men Type: BLOOD SPECIMENOrdering Facility: [facility] Address: [address] [place] [address] Performed By: #### 2 4321-2, ####LERNER LABORATORYCLIA [id number] [place] [address] [place] Calcium [Mass/Vol] 9.2 mg/dL Normal 8.5-10.[address] [facility] Comment on above: Order Comment: Speci men Type: BLOOD SPECIMENOrdering Facility: [facility] Address: [address] [place] [address] Performed By: #### 2 4321-2, ####LERNER LABORATORYCLIA [id number] [place] [address] [place] Chloride [Moles/Vol] 103 mmol/L Normal 98-107 [facility] [place] Comment on above: Order Comment: Speci men Type: BLOOD SPECIMENOrdering Facility: [facility] Address: [address] [place], [place] [address] Performed By: #### 2 432-2, ####LERNER LABORATORYCLIA [id number] [place] [id number] [place] CO2 [Moles/Vol] 28 mmol/L Normal 22-[address] [facility] Comment on above: Order Comment: Speci men Type: BLOOD SPECIMENOrdering Facility: [facility] Address: [address] [place], [place] [address] Performed By: #### 2 4321-2, ####LERNER LABORATORYCLIA [id number] [place] [address] [place] Creatinine [Mass/Vol] 1.23 mg/dL High 0.73-1.22 [facility] Comment on above: Order Comment: Raudel [facility] Type: BLOOD SPECIMENOrdering Facility: [facility] Address: [address] [place] [address] Performed By: #### 2 4321-2, ####LERNER LABORATORYCLIA [id number] [place] [address] [place] Creatinine and Glomerular filtration rate.predicted panel (S/P/Bld) 64 mL/min/1.73m??? Normal >=[address] [facility] Comment on above: Order Comment: Payal lorena Type: BLOOD SPECIMENOrdering Facility: [facility] Address: [address] [place] [address] Result Comment: Sachi mated Glomerular Filtration Rate (eGFR) is calculated using the 2020 CKD-EPI creatinine equation. This equation utilizes serum creatinine, sex, and age as parameters. The creatinine assay has traceable calibration to isotope dilution-mass spectrometry. Refer to KDIGO guidelines for clinical interpretation. In patients with unstable renal function, e.g. those with acute kidney injury, the eGFR may not accurately reflect actual GFR. Performed By: #### 2 4321-2, ####LERNER LABORATORYCLIA [id number] [place] [address] [place] Glucose [Mass/Vol] 173 mg/dL High 74-[address] [facility] Comment on above: Order Comment: Raudel carrillo Type: BLOOD SPECIMENOrdering Facility: [facility] Address: [address] [place] [address] Result Comment: The [place] Diabetes Association (ADA) provides guidance for cutoff values for fasting glucose and random glucose. The ADA defines fasting as no caloric intake for at least 8 hours. Fasting plasma glucose results between 100 to 125 mg/dL indicate increased risk for diabetes (prediabetes).Fasting plasma glucose results greater than or equal to 126 mg/dL meet the criteria for diagnosis of diabetes. In the absence of unequivocal hyperglycemia, results should be confirmed by repeat testing. In a patient with classic symptoms of hyperglycemia or hyperglycemic crisis, random plasma glucose results greater than or equal to 200 mg/dL meet the criteria for diagnosis of diabetes.Reference: Standards of Medical Care in Diabetes 2016, [place] [employer]. Diabetes Care. 2016.39(Suppl 1). Performed By: #### 2 4321-2, ####LERNER LABORATORYCLIA [id number] [place] [address] [place] Potassium [Moles/Vol] 4.2 mmol/L Normal 3.7-5.1 [facility] Comment on above: Order Comment: Payali lorena Type: BLOOD SPECIMENOrdering Facility: [facility] Address: [address] [place] [address] Performed By: #### 2 2, ####LERNER LABORATORYCLIA [id number] [address] STATES OF [facility] Sodium [Moles/Vol] 142 mmol/L Normal 136-[address] [facility] Comment on above: Order Comment: Raudel carrillo Type: BLOOD SPECIMENOrdering Facility: [facility] Address: [address] [place] [address] Performed By: #### 2 4320-2, ####LERNER LABORATORYCLIA [id number] [address] STATES [facility] Urea nitrogen [Mass/Vol] 17 mg/dL Normal 9-[address] [facility] Comment on above: Order Comment: Payali lorena Type: BLOOD SPECIMENOrdering Facility: [facility] Address: [address] [place] [address] Performed By: #### 2 4320-2, ####LERNER LABORATORYCLIA [id number] [address] [place] CBC W Auto Differential pane l (Bld)on 06-02-2024 Basophils (Bld) [#/Vol] 0.09 10*3/uL Normal <0.[address] [facility] Comment on above: Order Comment: Payali lorena Type: BLOOD SPECIMENOrdering Facility: [facility] Address: [address] [place] [address] Performed By: #### 5 7021-8 ####LERNER LABORATORYCLIA [id number] [place] [address] [place] Basophils/100 WBC (Bld) 1.1 % Normal [facility] Comment on above: Order Comment: Speci men Type: BLOOD SPECIMENOrdering Facility: [facility] Address: [address] [place] [address] Performed By: #### 5 7021-8 ####LERNER LABORATORYCLIA [id number] [place] [address] [place] Differential cell count method Nom (Bld) Auto Normal [facility] Comment on above: Order Comment: Speci men Type: BLOOD SPECIMENOrdering Facility: [facility] Address: [address] [place] [address] Performed By: #### 5 7021-8 ####LERNER LABORATORYCLIA [id number] [place] [address] [place] Eosinophils (Bld) [#/Vol] 0.35 10*3/uL Normal <0.[address] [facility] Comment on above: Order Comment: Speci men Type: BLOOD SPECIMENOrdering Facility: [facility] Address: [address] [place] [address] Performed By: #### 5 7021-8 ####LERNER LABORATORYCLIA [id number] [address] [place] Eosinophils/100 WBC (Bld) 4.2 % Normal [facility] Comment on above: Order Comment: Speci men Type: BLOOD SPECIMENOrdering Facility: [facility] Address: [address] [place] [address] Performed By: #### 5 7021-8 ####LERNER LABORATORYCLIA [id number] [place] [address] [place] Erythrocyte distribution width (RBC) [Ratio] 15.8 % High 11.5-15.[address] [facility] Comment on above: Order Comment: Speci men Type: BLOOD SPECIMENOrdering Facility: [facility] Address: [address] [place] [address] Performed By: #### 5 7021-8 ####LERNER LABORATORYCLIA [id number] [place] [address] [place] Hematocrit (Bld) [Volume fraction] 42.4 % Normal 39.0-51.[address] [facility] Comment on above: Order Comment: Speci men Type: BLOOD SPECIMENOrdering Facility: [facility] Address: [address] [place] [address] Performed By: #### 5 7021-8 ####LERNER LABORATORYCLIA [id number] [place] [address] [place] Hemoglobin (Bld) [Mass/Vol] 13.2 g/dL Normal 13.0-17.[address] [facility] Comment on above: Order Comment: Speci men Type: BLOOD SPECIMENOrdering Facility: [facility] Address: [address] [place] [address] Performed By: #### 5 7021-8 ####LERNER LABORATORYCLIA [id number] [place] [address] [place] Immature granulocytes (Bld) [#/Vol] 0.05 10*3/uL Normal <0.[address] [facility] Comment on above: Order Comment: Speci men Type: BLOOD SPECIMENOrdering Facility: [facility] Address: [address] [place] [address] Performed By: #### 5 7021-8 ####LERNER LABORATORYCLIA [id number] [address] [place] Immature granulocytes/100 WBC (Bld) 0.6 % Normal [facility] Comment on above: Order Comment: Speci men Type: BLOOD SPECIMENOrdering Facility: [facility] Address: [address] [place] [address] Performed By: #### 5 7021-8 ####LERNER LABORATORYCLIA [id number] [place] [address] [place] Lymphocytes (Bld) [#/Vol] 1.62 10*3/uL Normal 1.00-4.[address] [facility] Comment on above: Order Comment: Speci men Type: BLOOD SPECIMENOrdering Facility: [facility] Address: [address] [place], [place] [address] Performed By: #### 5 7021-8 ####LERNER LABORATORYCLIA [id number] [address] Lymphocytes/100 WBC (Bld) 19.5 % Normal [facility] Comment on above: Order Comment: Speci men Type: BLOOD SPECIMENOrdering Facility: [facility] Address: [address] [place] [address] Performed By: #### 5 7021-8 ####LERNER LABORATORYCLIA [id number] [address] MCH (RBC) [Entitic mass] 28.1 pg Normal 26.0-34.[address] [facility] Comment on above: Order Comment: Speci men Type: BLOOD SPECIMENOrdering Facility: [facility] Address: [address] [place] [address] Performed By: #### 5 7021-8 ####LERNER LABORATORYCLIA [id number] [address] [place] MCHC (RBC) [Mass/Vol] 31.1 g/dL Normal 30.5-36.0 [facility] Comment on above: Order Comment: Speci men Type: BLOOD SPECIMENOrdering Facility: [facility] Address: [address] [place] [address] Performed By: #### 5 7021-8 ####LERNER LABORATORYCLIA [id number] [address] MCV (RBC) [Entitic vol] 90.4 fL Normal 80.0-100.0 [facility] Comment on above: Order Comment: Speci men Type: BLOOD SPECIMENOrdering Facility: [facility] Address: [address] [place] [address] Performed By: #### 5 7021-8 ####LERNER LABORATORYCLIA [id number] [address] Monocytes (Bld) [#/Vol] 0.83 10*3/uL Normal <0.[address] [facility] Comment on above: Order Comment: Speci men Type: BLOOD SPECIMENOrdering Facility: [facility] Address: [address] [place] [address] Performed By: #### 5 7021-8 ####LERNER LABORATORYCLIA [id number] [place] [address] [place] Monocytes/100 WBC (Bld) 10.0 % Normal [facility] Comment on above: Order Comment: Speci men Type: BLOOD SPECIMENOrdering Facility: [facility] Address: [address] [place] [address] Performed By: #### 5 7021-8 ####LERNER LABORATORYCLIA [id number] [place] [address] [place] Neutrophils (Bld) [#/Vol] 5.35 10*3/uL Normal 1.45-7.[address] [facility] Comment on above: Order Comment: Speci men Type: BLOOD SPECIMENOrdering Facility: [facility] Address: [address] [place] [address] Performed By: #### 5 7021-8 ####LERNER LABORATORYCLIA [id number] [place] [address] [place] Neutrophils/100 WBC (Bld) 64.6 % Normal [facility] Comment on above: Order Comment: Speci men Type: BLOOD SPECIMENOrdering Facility: [facility] Address: [address] [place] [address] Performed By: #### 5 7021-8 ####LERNER LABORATORYCLIA [id number] [place] [address] [place] Nucleated RBC (Bld) [#/Vol] 10*3/uL Normal <0.[address] [facility] Comment on above: Order Comment: Speci men Type: BLOOD SPECIMENOrdering Facility: [facility] Address: [address] [place] [address] Performed By: #### 5 7021-8 ####LERNER LABORATORYCLIA [id number] [place] [address] [place] Nucleated RBC/100 WBC (Bld) [Ratio] 0.0 /100 WBC Normal [facility] Comment on above: Order Comment: Speci men Type: BLOOD SPECIMENOrdering Facility: [facility] Address: [address] [place], [place] [address], [place] [address] Performed By: #### 5 7021-8 ####LERNER LABORATORYCLIA [id number] [place] [id number] [place] Platelet mean volume (Bld) [Entitic vol] 9.9 fL Normal 9.0-12.[address] [facility] Comment on above: Order Comment: Speci men Type: BLOOD SPECIMENOrdering Facility: [facility] Address: [facility] [place] [address] Performed By: #### 5 7021-8 ####LERNER LABORATORYCLIA [id number] [place] [address] [place] Platelets (Bld) [#/Vol] 208 10*3/uL Normal 150-[address] [facility] Comment on above: Order Comment: Speci men Type: BLOOD SPECIMENOrdering Facility: [facility] Address: [facility] [place] [address] Performed By: #### 5 7021-8 ####LERNER LABORATORYCLIA [id number] [place] [address] [place] RBC (Bld) [#/Vol] 4.69 10*6/uL Normal 4.20-6.00 [facility] Comment on above: Order Comment: Speci men Type: BLOOD SPECIMENOrdering Facility: [facility] Address: [facility] [place] [address] Performed By: #### 5 7021-8 ####LERNER LABORATORYCLIA [id number] [place] [address] [place] WBC (Bld) [#/Vol] 8.29 10*3/uL Normal 3.70-11.00 [facility] Comment on above: Order Comment: Speci men Type: BLOOD SPECIMENOrdering Facility: [facility] Address: [facility] [place] [address] Performed By: #### 5 7021-8 ####LERNER LABORATORYCLIA [id number] [place] [id number] [place] CNDSon 06-02-2024 CNDS HNO ID: [id number] Author: MARSHA LUCAS DO Service: General Surgery Author Type: Resident Type: Discharge Summary Filed: 06/06/2024 09:38 Note Text: Attestation signed by Marsha Lucas DO at 06/06/2024 9:38 AM Marsha Lucas DO DISCHARGE NOTE (Patient Admitted Less than 48 Hours) SERVICE DATE: 06/02/2024 SERVICE TIME: 10:59 PM ADMISSION DATE: 06/02/2024 Discharge date:06/03/24 DISCHARGE DISPOSITION: [facility] GENERAL: resting comfortably, in no acute distress HEENT: normocephalic, atraumatic, EOMI NECK: trachea midline, no JVD LUNGS: Unlabored breathing on RA, equal chest rise bilaterally, no use of accessory muscles CARDIAC: Regular rate as above, extremities warm and well perfused : bilat groin without hematoma, L groin w/bandaids CDI EXTREMITIES: VALLE, No gross deformities, L foot with kerlex PULSES: dopplerable L DP and PT signal NEURO: AANDO, no gross neurological deficits PSYCH: normal mood and affect DIET: Diabetic ACTIVITY AFTER DISCHARGE: Resume pre-hospital activity FOLLOW UP CARE REQUIRED: Dr. Lucas DISCHARGE MEDICATIONS (ONLY ACTIVATE WHEN READY TO DISCHARGE): Medication List CONTINUE taking these medications aspirin, enteric coated 81 mg EC tablet Commonly known as: ASPIRIN, ENTERIC COATED atorvastatin 80 mg tablet Commonly known as: LIPITOR nmnknlhhtb-gspmpmuk-p ormoterol 160-9-4.8 mcg/actuation HFA aerosol inhaler Commonly known as: BREZTRI buPROPion XL 150 mg 24 hr tablet Commonly known as: WELLBUTRIN XL COREG 25 mg tablet Generic drug: carvedilol Fish OiL 1,000 mg Cap Generic drug: [place]-3 Fatty Acids-Vitamin E insulin glargine-yfgn 100 unit/mL (3 mL) insulin pen Commonly known as: SEMGLEE isosorbide mononitrate ER 30 mg 24 hr tablet Commonly known as: IMDUR Pregabalin 200 mg capsule Commonly known as: LYRICA rivaroxaban 2.5 mg tablet Commonly known as: XARELTO semaglutide 2 mg/dose (8 mg/3 mL) pen injector Commonly known as: OZEMPIC spironolactone 25 mg tablet Commonly known as: ALDACTONE torsemide 20 mg tablet Commonly known as: DEMADEX vitamin D3-vitamin K2 (MK4) 1,000-100 unit-mcg Tab STOP taking these medications WARFARIN ORAL FINAL DIAGNOSIS: Active Hospital Problems as of 06/02/2024 Noted - [facility] * (Principal) PAD (peripheral artery disease) (HCC) 05/24/2024 - Present Yes No notes have been filed under this hospital service. Service: General Surgery Morbid Obesity Class 3 SIGNATURE: Millie Anderson DO PATIENT NAME: Mitul Oakes DATE: June 02, 2024 TIME: 10:59 PM PAGER: [phone] [facility] CONSULT PROGon 06-02-2024 CONSULT [facility] CONSULT [facility] HISTORY PHYSICALon HISTORY PHYSICAL HNO ID: [id number] Author: MARSHA LUCAS DO Service: General Surgery Author Type: Resident Type: H&P Filed: 06/03/2024 10:35 Note Text: Attestation signed by Marsha Lucas DO at 06/03/2024 10:35 AM Marsha Lucas DO UPDATED HISTORY AND PHYSICAL EXAMINATION SERVICE DATE: 06/02/2024 SERVICE TIME: 1:50 PM PHYSICAL EXAM MUST BE COMPLETED ON ADMISSION The History and Physical (completed in the past 30 days) has been reviewed and the patient has been examined. The contents accurately reflect the patient's condition with the following additions or revisions since the HANDP was completed. Examination indicates no changes. This HANDP can be found in the Electronic Medical Record dated 05/23/24. SIGNATURE: Christina Rahman DO PATIENT NAME: Mitul Oakes DATE: June 02, 2024 TIME: 1:50 PM Normal [facility] Magnesium SerPl-mCncon 06-02 Magnesium [Mass/Vol] 2.2 mg/dL Normal 1.7-2.3 [facility] [place] Comment on above: Order Comment: Speci men Type: BLOOD SPECIMENOrdering Facility: [facility] Address: [address] [place] [address] Performed By: #### 2 4321-2, 71048-8 ####LATONIA LABORATORYCLIA [id number] [address] STATES OF [facility] OPERATIVE NOon 06-02-2024 OPERATIVE NO HNO ID: [id number] Author: MARSHA LUCAS DO Service: Vascular Surgery Author Type: Physician Type: Operative Report Filed: 06/03/2024 13:37 Note Text: OPERATIVE/PROCEDURE REPORT LOG ID: [id number] Surgery/Procedure Date: 06/02/2024 Incision/Procedure Start Time: 3:06 PM Incision Close/Procedure End Time: 4:42 PM Surgeon(s)/Procedural ist(s) and Retail Shift Leader(s): Surgeons and Role: * Marsha Lucas DO - Primary * Christina Rahman DO - Resident - Assisting PROCEDURE INDICATION: 68 year old male with left hallux wound and PAD presents for angiogram with possible intervention. INTERVENTIONAL PROCEDURE: 1. Ultrasound-guided right common femoral access 2. Aorta and pelvic angiogram 3. left lower extremity angiogram 4. Balloon angioplasty of distal left superficial femoral artery with 5x60mm mustang balloon and 6x80mm DCB (Inpact) Anesthesia: MAC PROCEDURAL DETAILS Patient was seen in the pre-surgical area where the preoperative Huddle was performed. Informed consent was reviewed with the patient and surgical team. The patient was then brought back to the operating room and laid supine on the operating table. Anesthesia was administered by the Anesthesia team. Bilateral groins were prepped and draped in the usual sterile fashion. The right common femoral artery was interrogated with the ultrasound and found to be patent. Utilizing local anesthesia, ultrasound guidance, and micropuncture system, access was obtained in the right common femoral artery and the tip of the needle within the vessel was documented. A 5-Greek sheath was exchanged over a glidewire into the RETAIL CUSTOMER SERVICE REPRESENTATIVE and an omniflush catheter was advanced into the aorta for aortogram and pelvic angiogram. This showed widely patent aorta and bilateral iliac arteries without evidence of stenosis. Up and over access was obtained and with the catheter parked in the contralateral external iliac artery, angiography with runoff was performed with selected DSA runs done stepwise to the foot. This showed widely patent common femoral and profunda femoral without stenosis. The superficial femoral is patent proximally and becomes occluded for short segment distally at melissa canal with reconstitution after about 3 cm. The popliteal is patent without stenosis. There is three vessel runoff to the left foot. The PT fills the plantar arch and the AT fills the DP into the foot. A 6Fr sheath was then exchanged into the common femoral. Bivalirudin was administered given heparin allergy. The SFA lesion was crossed and ballooned with a 5x60mm mustang and 6x80mm DCB as listed above. m Completion arteriogram revealed flow through the artery improved with a technically satisfactory result and no evidence of significant residual stenosis. The long sheath was exchanged for a short sheath. The wire and catheter were removed. Manual pressure was held for hemostasis. The patient tolerated the procedure well. Pre-Op/Pre-Procedure Diagnosis: PAD, left hallux wound, heparin allergy Post-Op/Post-Procedur e Diagnosis: Same Estimated Blood Loss: 5 ml Specimens: None Implantable Devices: None Drains: None Complications: None I/primary surgeon/proceduralist performed the procedure with assistance. DO Se Valdez [facility] Yovany Torres [facility] 06-02-2024 Vancomycin random [Mass/Vol] 16.9 ug/mL Normal 10.0-20.[address] [facility] Comment on above: Order Comment: Speci men Type: BLOOD SPECIMENOrdering Facility: [facility] Address: [address] [place] [address] Result Comment: Refe rence ranges and high/low indicator flags are provided as general guidelines only. The treating physician must determine appropriate target levels/dosing based on the specific clinical situation. Performed By: #### 4 091-5 ####LERNER LABORATORYCLIA [id number] [place] [address] [place] Basic metabolic 2000 panelon 06-01-2024 Anion gap [Moles/Vol] 9 mmol/L Normal 8-15 [facility] Comment on above: Order Comment: Speci men Type: BLOOD SPECIMENOrdering Facility: [facility] Address: [address] [place] [address] Performed By: #### 2 4321-2, ####LATONIA LABORATORYCLIA [id number] [place] [address] [place] Calcium [Mass/Vol] 9.3 mg/dL Normal 8.5-10.[address] [facility] Comment on above: Order Comment: Speci men Type: BLOOD SPECIMENOrdering Facility: [facility] Address: [address] [place] [address] Performed By: #### 2 4321-2, ####LERNER LABORATORYCLIA [id number] [place] [address] [place] Chloride [Moles/Vol] 106 mmol/L Normal 98-107 [facility] [place] Comment on above: Order Comment: Speci men Type: BLOOD SPECIMENOrdering Facility: [facility] Address: [address] [place] [address] Performed By: #### 2 4321-2, ####LERNER LABORATORYCLIA [id number] [place] [id number] [place] CO2 [Moles/Vol] 29 mmol/L Normal 22-[address] [facility] Comment on above: Order Comment: Speci men Type: BLOOD SPECIMENOrdering Facility: [facility] Address: [address] [place] [id number] Performed By: #### 2 4321-2, ####LERNER LABORATORYCLIA [id number] [address] STATES [facility] Creatinine [Mass/Vol] 1.11 mg/dL Normal 0.73-1.22 [facility] Comment on above: Order Comment: Raudel carrillo Type: BLOOD SPECIMENOrdering Facility: [facility] Address: [address] [place] [address] Performed By: #### 2 4321-2, ####LERNER LABORATORYCLIA [id number] [place] [id number] [facility] Creatinine and Glomerular filtration rate.predicted panel (S/P/Bld) 73 mL/min/1.73m??? Normal >=[address] [facility] Comment on above: Order Comment: Raudel carrillo Type: BLOOD SPECIMENOrdering Facility: [facility] Address: [address] [place] [address] Result Comment: Sachi mated Glomerular Filtration Rate (eGFR) is calculated using the 2020 CKD-EPI creatinine equation. This equation utilizes serum creatinine, sex, and age as parameters. The creatinine assay has traceable calibration to isotope dilution-mass spectrometry. Refer to KDIGO guidelines for clinical interpretation. In patients with unstable renal function, e.g. those with acute kidney injury, the eGFR may not accurately reflect actual GFR. Performed By: #### 2 4321-2, ####LERNER LABORATORYCLIA [id number] [place] [id number] [place] Glucose [Mass/Vol] 150 mg/dL High 74-[address] [facility] Comment on above: Order Comment: Raudel carrillo Type: BLOOD SPECIMENOrdering Facility: [facility] Address: [address] [place] [address] Result Comment: The [place] [employer] (ADA) provides guidance for cutoff values for fasting glucose and random glucose. The ADA defines fasting as no caloric intake for at least 8 hours. Fasting plasma glucose results between 100 to 125 mg/dL indicate increased risk for diabetes (prediabetes).Fasting plasma glucose results greater than or equal to 126 mg/dL meet the criteria for diagnosis of diabetes. In the absence of unequivocal hyperglycemia, results should be confirmed by repeat testing. In a patient with classic symptoms of hyperglycemia or hyperglycemic crisis, random plasma glucose results greater than or equal to 200 mg/dL meet the criteria for diagnosis of diabetes.Reference: Standards of Medical Care in Diabetes 2016, [place] [employer]. Diabetes Care. 2016.39(Suppl 1). Performed By: #### 2 4321-2, ####LERNER LABORATORYCLIA [id number] [address] STATES OF [facility] Potassium [Moles/Vol] 4.1 mmol/L Normal 3.7-5.1 [facility] Comment on above: Order Comment: Raudel carrillo Type: BLOOD SPECIMENOrdering Facility: [facility] Address: [address] [place] [address] Performed By: #### 2 4320-07, ####LERNER LABORATORYCLIA [id number] [address] STATES [facility] Sodium [Moles/Vol] 144 mmol/L Normal 136-[address] [facility] Comment on above: Order Comment: Raudel carrillo Type: BLOOD SPECIMENOrdering Facility: [facility] Address: [address] [place] [address] Performed By: #### 2 4320-07, ####LERNER LABORATORYCLIA [id number] [address] STATES [facility] Urea nitrogen [Mass/Vol] 14 mg/dL Normal 9-[address] [facility] Comment on above: Order Comment: Payali lorena Type: BLOOD SPECIMENOrdering Facility: [facility] Address: [address] [place] [address] Performed By: #### 2 2, ####LERNER LABORATORYCLIA [id number] [place] [address] [place] CBC W Auto Differential pane l (Bld)on 06-01-2024 Basophils (Bld) [#/Vol] 0.08 10*3/uL Normal <0.[address] [facility] Comment on above: Order Comment: Raudel carrillo Type: BLOOD SPECIMENOrdering Facility: [facility] Address: [address] [place] [address] Performed By: #### 5 7021-8 ####LERNER LABORATORYCLIA [id number] [place] [address] [place] Basophils/100 WBC (Bld) 1.0 % Normal [facility] Comment on above: Order Comment: Speci men Type: BLOOD SPECIMENOrdering Facility: [facility] Address: [address] [place] [address] Performed By: #### 5 7021-8 ####LERNER LABORATORYCLIA [id number] [place] [address] [place] Differential cell count method Nom (Bld) Auto Normal [facility] Comment on above: Order Comment: Speci men Type: BLOOD SPECIMENOrdering Facility: [facility] Address: [address] [place] [address] Performed By: #### 5 7021-8 ####LERNER LABORATORYCLIA [id number] [place] [address] [place] Eosinophils (Bld) [#/Vol] 0.36 10*3/uL Normal <0.[address] [facility] Comment on above: Order Comment: Speci men Type: BLOOD SPECIMENOrdering Facility: [facility] Address: [address] [place] [address] Performed By: #### 5 7021-8 ####LERENR LABORATORYCLIA [id number] [address] [place] Eosinophils/100 WBC (Bld) 4.3 % Normal [facility] Comment on above: Order Comment: Speci men Type: BLOOD SPECIMENOrdering Facility: [facility] Address: [address] [place] [address] Performed By: #### 5 7021-8 ####LERNER LABORATORYCLIA [id number] [place] [address] [place] Erythrocyte distribution width (RBC) [Ratio] 15.9 % High 11.5-15.[address] [facility] Comment on above: Order Comment: Speci men Type: BLOOD SPECIMENOrdering Facility: [facility] Address: [address] [place] [address] Performed By: #### 5 7021-8 ####LERNER LABORATORYCLIA [id number] [place] [address] [place] Hematocrit (Bld) [Volume fraction] 42.9 % Normal 39.0-51.[address] [facility] Comment on above: Order Comment: Speci men Type: BLOOD SPECIMENOrdering Facility: [facility] Address: [address] [place] [address] Performed By: #### 5 7021-8 ####LERNER LABORATORYCLIA [id number] [place] [address] [place] Hemoglobin (Bld) [Mass/Vol] 13.2 g/dL Normal 13.0-17.[address] [facility] Comment on above: Order Comment: Speci men Type: BLOOD SPECIMENOrdering Facility: [facility] Address: [address] [place] [address] Performed By: #### 5 7021-8 ####LERNER LABORATORYCLIA [id number] [place] [address] [place] Immature granulocytes (Bld) [#/Vol] 0.05 10*3/uL Normal <0.[address] [facility] Comment on above: Order Comment: Speci men Type: BLOOD SPECIMENOrdering Facility: [facility] Address: [address] [place] [address] Performed By: #### 5 7021-8 ####LERNER LABORATORYCLIA [id number] [place] [address] [place] Immature granulocytes/100 WBC (Bld) 0.6 % Normal [facility] Comment on above: Order Comment: Speci men Type: BLOOD SPECIMENOrdering Facility: [facility] Address: [address] [place] [address] Performed By: #### 5 7021-8 ####LERNER LABORATORYCLIA [id number] [place] [address] [place] Lymphocytes (Bld) [#/Vol] 1.52 10*3/uL Normal 1.00-4.[address] [facility] Comment on above: Order Comment: Speci men Type: BLOOD SPECIMENOrdering Facility: [facility] Address: [address] [place] [address] Performed By: #### 5 7021-8 ####LERNER LABORATORYCLIA [id number] [address] STATES [facility] Lymphocytes/100 WBC (Bld) 18.2 % Normal [facility] Comment on above: Order Comment: Speci men Type: BLOOD SPECIMENOrdering Facility: [facility] Address: [address] [place] [address] Performed By: #### 5 7021-8 ####LERNER LABORATORYCLIA [id number] [address] [place] MCH (RBC) [Entitic mass] 27.8 pg Normal 26.0-34.[address] [facility] Comment on above: Order Comment: Speci men Type: BLOOD SPECIMENOrdering Facility: [facility] Address: [address] [place] [address] Performed By: #### 5 7021-8 ####LERNER LABORATORYCLIA [id number] [address] [place] MCHC (RBC) [Mass/Vol] 30.8 g/dL Normal 30.5-36.0 [facility] Comment on above: Order Comment: Speci men Type: BLOOD SPECIMENOrdering Facility: [facility] Address: [address] [place] [address] Performed By: #### 5 7021-8 ####LERNER LABORATORYCLIA [id number] [address] [place] MCV (RBC) [Entitic vol] 90.5 fL Normal 80.0-100.0 [facility] Comment on above: Order Comment: Speci men Type: BLOOD SPECIMENOrdering Facility: [facility] Address: [address] [place] [address] Performed By: #### 5 7021-8 ####LERNER LABORATORYCLIA [id number] [address] [place] Monocytes (Bld) [#/Vol] 0.99 10*3/uL High <0.[address] [facility] Comment on above: Order Comment: Speci men Type: BLOOD SPECIMENOrdering Facility: [facility] Address: [address] [place] [address] Performed By: #### 5 7021-8 ####LERNER LABORATORYCLIA [id number] [place] [address] [place] Monocytes/100 WBC (Bld) 11.8 % Normal [facility] Comment on above: Order Comment: Speci men Type: BLOOD SPECIMENOrdering Facility: [facility] Address: [address] [place] [address] Performed By: #### 5 7021-8 ####LERNER LABORATORYCLIA [id number] [place] [address] [place] Neutrophils (Bld) [#/Vol] 5.36 10*3/uL Normal 1.45-7.[address] [facility] Comment on above: Order Comment: Speci men Type: BLOOD SPECIMENOrdering Facility: [facility] Address: [address] [place] [address] Performed By: #### 5 7021-8 ####LERNER LABORATORYCLIA [id number] [place] [address] [place] Neutrophils/100 WBC (Bld) 64.1 % Normal [facility] Comment on above: Order Comment: Speci men Type: BLOOD SPECIMENOrdering Facility: [facility] Address: [address] [place] [address] Performed By: #### 5 7021-8 ####LERNRE LABORATORYCLIA [id number] [place] [address] [place] Nucleated RBC (Bld) [#/Vol] 10*3/uL Normal <0.[address] [facility] Comment on above: Order Comment: Speci men Type: BLOOD SPECIMENOrdering Facility: [facility] Address: [address] [place] [address] Performed By: #### 5 7021-8 ####LERNER LABORATORYCLIA [id number] [place] [address] [place] Nucleated RBC/100 WBC (Bld) [Ratio] 0.0 /100 WBC Normal [facility] Comment on above: Order Comment: Speci men Type: BLOOD SPECIMENOrdering Facility: [facility] Address: [address] [place] [address] Performed By: #### 5 7021-8 ####LERNER LABORATORYCLIA [id number] [address] Platelet mean volume (Bld) [Entitic vol] 9.7 fL Normal 9.0-12.[address] [facility] Comment on above: Order Comment: Speci men Type: BLOOD SPECIMENOrdering Facility: [facility] Address: [address] [place] [address] [place] [address] Performed By: #### 5 7021-8 ####LERNER LABORATORYCLIA [id number] [place] [address] [place] [facility] [place] Platelets (Bld) [#/Vol] 226 10*3/uL Normal 150-[address] [facility] Comment on above: Order Comment: Speci men Type: BLOOD SPECIMENOrdering Facility: [facility] Address: [address] [place] [address] Performed By: #### 5 7021-8 ####LERNER LABORATORYCLIA [id number] [place] [address] [place] RBC (Bld) [#/Vol] 4.74 10*6/uL Normal 4.20-6.00 [facility] Comment on above: Order Comment: Speci men Type: BLOOD SPECIMENOrdering Facility: [facility] Address: [facility] [address] Performed By: #### 5 7021-8 ####LERNER LABORATORYCLIA [id number] [address] [place] WBC (Bld) [#/Vol] 8.36 10*3/uL Normal 3.70-11.00 [facility] Comment on above: Order Comment: Speci men Type: BLOOD SPECIMENOrdering Facility: [facility] Address: [address] [place] [address] [place] [address] Performed By: #### 5 7021-8 ####LERNER LABORATORYCLIA [id number] [address] [place] CONSULT PROGon 06-01-2024 CONSULT PROG Normal [facility] Magnesium SerPl-mCncon 06-01 Magnesium [Mass/Vol] 2.2 mg/dL Normal 1.7-2.3 [facility] Comment on above: Order Comment: Speci men Type: BLOOD SPECIMENOrdering Facility: [facility] Address: [address] [place] [address] Performed By: #### 2 4321-2, 17126-2 ####LERNER LABORATORYCLIA [id number] [place] [address] [place] Basic metabolic 2000 panelon 05-31-2024 Anion gap [Moles/Vol] 9 mmol/L Normal 8-15 [facility] Comment on above: Order Comment: Speci men Type: BLOOD SPECIMENOrdering Facility: [facility] Address: [address] [place] [address] Performed By: #### 2 4321-2 ####LERNER LABORATORYCLIA [id number] [place] [address] [place] Calcium [Mass/Vol] 9.1 mg/dL Normal 8.5-10.[address] [facility] Comment on above: Order Comment: Speci men Type: BLOOD SPECIMENOrdering Facility: [facility] Address: [address] [place] [address] Performed By: #### 2 4321-2 ####LERNER LABORATORYCLIA [id number] [place] [address] [place] Chloride [Moles/Vol] 103 mmol/L Normal 98-107 [facility] Comment on above: Order Comment: Speci men Type: BLOOD SPECIMENOrdering Facility: [facility] Address: [address] [place] [address] Performed By: #### 2 4321-2 ####LERNER LABORATORYCLIA [id number] [place] [id number] [place] CO2 [Moles/Vol] 31 mmol/L High 22-[address] [facility] Comment on above: Order Comment: Speci men Type: BLOOD SPECIMENOrdering Facility: [facility] Address: [address] [place] [address] Performed By: #### 2 4321-2 ####LERNER LABORATORYCLIA [id number] [place] [id number] [place] Creatinine [Mass/Vol] 1.15 mg/dL Normal 0.73-1.22 [facility] Comment on above: Order Comment: Raudel carrillo Type: BLOOD SPECIMENOrdering Facility: [facility] Address: [address] [place] [address] Performed By: #### 2 4321-2 ####LERNER LABORATORYCLIA [id number] [place] [id number] [facility] Creatinine and Glomerular filtration rate.predicted panel (S/P/Bld) 70 mL/min/1.73m??? Normal >=[address] [facility] Comment on above: Order Comment: Raudel carrillo Type: BLOOD SPECIMENOrdering Facility: [facility] Address: [address] [place] [address] Result Comment: Sachi mated Glomerular Filtration Rate (eGFR) is calculated using the 2020 CKD-EPI creatinine equation. This equation utilizes serum creatinine, sex, and age as parameters. The creatinine assay has traceable calibration to isotope dilution-mass spectrometry. Refer to KDIGO guidelines for clinical interpretation. In patients with unstable renal function, e.g. those with acute kidney injury, the eGFR may not accurately reflect actual GFR. Performed By: #### 2 4321-2 ####LERNER LABORATORYCLIA [id number] [address] [place] Glucose [Mass/Vol] 142 mg/dL High 74-[address] [facility] Comment on above: Order Comment: Raudel carrillo Type: BLOOD SPECIMENOrdering Facility: [facility] Address: [address] [place] [address] Result Comment: The [place] Diabetes Association (ADA) provides guidance for cutoff values for fasting glucose and random glucose. The ADA defines fasting as no caloric intake for at least 8 hours. Fasting plasma glucose results between 100 to 125 mg/dL indicate increased risk for diabetes (prediabetes).Fasting plasma glucose results greater than or equal to 126 mg/dL meet the criteria for diagnosis of diabetes. In the absence of unequivocal hyperglycemia, results should be confirmed by repeat testing. In a patient with classic symptoms of hyperglycemia or hyperglycemic crisis, random plasma glucose results greater than or equal to 200 mg/dL meet the criteria for diagnosis of diabetes.Reference: Standards of Medical Care in Diabetes 2016, [place] [employer]. Diabetes Care. 2016.39(Suppl 1). Performed By: #### 2 4321-2 ####LERNER LABORATORYCLIA [id number] [address] STATES OF [facility] Potassium [Moles/Vol] 4.3 mmol/L Normal 3.7-5.1 [facility] Comment on above: Order Comment: Raudel carrillo Type: BLOOD SPECIMENOrdering Facility: [facility] Address: [address] [place] [address] Performed By: #### 2 4321-2 ####LERNER LABORATORYCLIA [id number] [address] [place] Sodium [Moles/Vol] 143 mmol/L Normal 136-[address] [facility] Comment on above: Order Comment: Raudel carrillo Type: BLOOD SPECIMENOrdering Facility: [facility] Address: [address] [place] [address] Performed By: #### 2 4321-2 ####LERNER LABORATORYCLIA [id number] [place] [address] [place] Urea nitrogen [Mass/Vol] 14 mg/dL Normal 9-[address] [facility] Comment on above: Order Comment: Raudel carrillo Type: BLOOD SPECIMENOrdering Facility: [facility] Address: [address] [place] [address] Performed By: #### 2 4321-2 ####LERNER LABORATORYCLIA [id number] [place] [address] [place] CONSULT PROGon 05-31-2024 CONSULT PROG Normal [facility] CONSULT PROG Normal [facility] Vancomycin Medora SerPl-mCncon 05-31-2024 Vancomycin random [Mass/Vol] 21.9 ug/mL High 10.0-20.[address] [facility] Comment on above: Order Comment: Raudel carrillo Type: BLOOD SPECIMENOrdering Facility: [facility] Address: [address] [place] [address] Result Comment: Refe rence ranges and high/low indicator flags are provided as general guidelines only. The treating physician must determine appropriate target levels/dosing based on the specific clinical situation. Performed By: #### 4 091-5 ####LERNER LABORATORYCLIA [id number] [place] [address] [place] Basic metabolic 2000 panelon 05-30-2024 Anion gap [Moles/Vol] 11 mmol/L Normal 8-15 [facility] Comment on above: Order Comment: Speci men Type: BLOOD SPECIMENOrdering Facility: [facility] Address: [address] [place] [address] Performed By: #### 2 4321-2 ####LERNER LABORATORYCLIA [id number] [place] [address] [place] Calcium [Mass/Vol] 8.8 mg/dL Normal 8.5-10.[address] [facility] Comment on above: Order Comment: Speci men Type: BLOOD SPECIMENOrdering Facility: [facility] Address: [address] [place] [address] Performed By: #### 2 4321-2 ####LERNER LABORATORYCLIA [id number] [address] [place] Chloride [Moles/Vol] 104 mmol/L Normal 98-107 [facility] [place] Comment on above: Order Comment: Speci men Type: BLOOD SPECIMENOrdering Facility: [facility] Address: [address] [place] [address] Performed By: #### 2 4321-2 ####LERNER LABORATORYCLIA [id number] [place] [address] [place] CO2 [Moles/Vol] 27 mmol/L Normal 22-[address] [facility] Comment on above: Order Comment: Speci men Type: BLOOD SPECIMENOrdering Facility: [facility] Address: [address] [place] [address] Performed By: #### 2 4321-2 ####LERNER LABORATORYCLIA [id number] [place] [address] [place] Creatinine [Mass/Vol] 1.02 mg/dL Normal 0.73-1.22 [facility] Comment on above: Order Comment: Speci men Type: BLOOD SPECIMENOrdering Facility: [facility] Address: [address] [place] [address] Performed By: #### 2 4321-2 ####LERNER LABORATORYCLIA [id number] [place] [id number] [place] Creatinine and Glomerular filtration rate.predicted panel (S/P/Bld) 81 mL/min/1.73m??? Normal >=[address] [facility] Comment on above: Order Comment: Raudel carrillo Type: BLOOD SPECIMENOrdering Facility: [facility] Address: [address] [place] [address] Result Comment: Sachi mated Glomerular Filtration Rate (eGFR) is calculated using the 2020 CKD-EPI creatinine equation. This equation utilizes serum creatinine, sex, and age as parameters. The creatinine assay has traceable calibration to isotope dilution-mass spectrometry. Refer to KDIGO guidelines for clinical interpretation. In patients with unstable renal function, e.g. those with acute kidney injury, the eGFR may not accurately reflect actual GFR. Performed By: #### 2 4321-2 ####LERNER LABORATORYCLIA [id number] [place] [id number] [place] Glucose [Mass/Vol] 122 mg/dL High 74-[address] [facility] Comment on above: Order Comment: Raudel carrillo Type: BLOOD SPECIMENOrdering Facility: [facility] Address: [address] [place] [address] Result Comment: The [place] Diabetes Association (ADA) provides guidance for cutoff values for fasting glucose and random glucose. The ADA defines fasting as no caloric intake for at least 8 hours. Fasting plasma glucose results between 100 to 125 mg/dL indicate increased risk for diabetes (prediabetes).Fasting plasma glucose results greater than or equal to 126 mg/dL meet the criteria for diagnosis of diabetes. In the absence of unequivocal hyperglycemia, results should be confirmed by repeat testing. In a patient with classic symptoms of hyperglycemia or hyperglycemic crisis, random plasma glucose results greater than or equal to 200 mg/dL meet the criteria for diagnosis of diabetes.Reference: Standards of Medical Care in Diabetes 2016, [place] [employer]. Diabetes Care. 2016.39(Suppl 1). Performed By: #### 2 4321-2 ####LERNER LABORATORYCLIA [id number] [place] [address] [place] Potassium [Moles/Vol] 3.8 mmol/L Normal 3.7-5.1 [facility] Comment on above: Order Comment: Raudel lorena Type: BLOOD SPECIMENOrdering Facility: [facility] Address: [address] [place] [address] Performed By: #### 2 4321-2 ####LERNER LABORATORYCLIA [id number] [place] [address] [place] Sodium [Moles/Vol] 142 mmol/L Normal 136-[address] [facility] Comment on above: Order Comment: Speci lorena Type: BLOOD SPECIMENOrdering Facility: [facility] Address: [address] [place] [address] Performed By: #### 2 4321-2 ####LERNER LABORATORYCLIA [id number] [address] [place] Urea nitrogen [Mass/Vol] 14 mg/dL Normal 9-[address] [facility] Comment on above: Order Comment: Payalalejandro carrillo Type: BLOOD SPECIMENOrdering Facility: [facility] Address: [address] [place] [address] Performed By: #### 2 4321-2 ####LERNER LABORATORYCLIA [id number] [address] OF [facility] CASE MANAGEMon 05-30-[address] [facility]EM [facility] MITUL OAKES ([id number]) 1955 M Date Time Provider Department 05/30/24 MARSHA LUCAS During your visit today, we recorded the following information about you: Allergies As of Date: 05/30/2024 Noted Allergy Reaction HEPARIN 05/23/2024 14 - Other: See Comments Comments: ANNE Cazares pt to [facility] on 05/23/24. 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 - atorvastatin (LIPITOR) 80 mg tablet Take 1 tablet by mouth once daily. - jrxgjcorka-eglyhzai-h ormoterol (BREZTRI) 160-9-4.8 mcg/actuation HFA aerosol inhaler Inhale 2 Puffs as instructed two times a day. - buPROPion XL (WELLBUTRIN XL) 150 mg 24 hr tablet Take 1 tablet by mouth every morning. - insulin glargine-yfgn (SEMGLEE) 100 unit/mL (3 mL) insulin pen Inject 25 Units subcutaneously two times a day. - isosorbide mononitrate ER (IMDUR) 30 mg 24 hr tablet Take 30 mg by mouth. - Pregabalin (LYRICA) 200 mg capsule Take 1 capsule by mouth three times a day. - rivaroxaban (XARELTO) 2.5 mg tablet Take 2.5 mg by mouth two times a day. - semaglutide (OZEMPIC) 2 mg/dose (8 mg/3 mL) pen injector Inject 2 mg subcutaneously one time a week. - spironolactone (ALDACTONE) 25 mg tablet Take 0.5 tablets by mouth once daily. - torsemide (DEMADEX) 20 mg tablet Take 1 tablet by mouth every morning. - [place]-3 Fatty Acids-Vitamin E (FISH OIL) 1,000 mg cap Take 1 capsule by mouth. - carvedilol (COREG) 25 mg tablet Take 25 mg by mouth twice daily with meals. - vitamin D3-vitamin K2, MK4, 1,000-100 unit-mcg tab Take by mouth. - WARFARIN SODIUM (WARFARIN ORAL) Take by mouth. Facility-Administered Medications as of 05/30/2024 - vancomycin iv piggyback 1 g in D5W 200 mL (VANCOCIN) - cefTRIAXone 2 g in D5W 100 mL Vial-Bag (ROCEPHIN) - fluconazole 400 mg tab(s) (DIFLUCAN) - budesonide 0.5 mg/2 mL 0.5 mg (PULMICORT) - ipratropium-albuterol 3 mL nebulizer solution (DUONEB) - NaCl 0.9% iv flush bag - acetaminophen 650 mg tab(s) (TYLENOL) - hydrOXYzine HCl 25 mg tab(s) (ATARAX) - vancomycin dosing and monitoring per pharmacy - oxyCODONE IR 5 mg tab(s) (ROXICODONE) - pregabalin 200 mg cap(s) (LYRICA) - atorvastatin 80 mg tab(s) (LIPITOR) - isosorbide mononitrate ER 30 mg tab(s) (IMDUR) - spironolactone 12.5 mg tab(s) (ALDACTONE) - buPROPion XL 150 mg tab(s) (WELLBUTRIN XL) - dextrose 40 % 15 g - glucagon 1 mg injection - dextrose 10% iv bolus - insulin lispro injection (rapid acting) (ADMElog) - insulin lispro injection (rapid acting) (ADMElog) Problem List As Of Date 05/30/2024 Noted Resolved Special screening for malignant neoplasms, colo*05/10/2015 Chronic bilateral low back pain with right-side*12/07/2015 CAD (coronary artery disease) [I25.10] 05/23/2024 AAA (abdominal aortic aneurysm) (HCC) [I71.40] 05/23/2024 Anxiety [F41.9] 05/23/2024 Depression [F32.A] 05/23/2024 COPD (chronic obstructive pulmonary disease) (H*05/23/2024 History of DVT (deep vein thrombosis) [Z86.718] 05/23/2024 History of lung cancer [Z85.118] 05/23/2024 Primary hypertension [I10] 05/23/2024 Mixed hyperlipidemia [E78.2] 05/23/2024 Right below-knee amputee (HCC) [Z89.511] 05/23/2024 KAILEE (obstructive sleep apnea) [G47.33] 05/23/2024 Type 2 diabetes mellitus (HCC) [E11.9] 05/23/2024 Osteomyelitis of great toe of left foot (HCC) [*05/23/2024 Cellulitis of left foot [L03.116] 05/23/2024 Obesity, Class II, BMI 35-39.9 [E66.812] 05/24/2024 PAD (peripheral artery disease) (HCC) [I73.9] 05/24/2024 FTT (failure to thrive) in adult [R62.7] 05/24/2024 Physical debility [R53.81] 05/24/2024 Diabetic peripheral neuropathy (HCC) [E11.42] 05/24/2024 Open toe wound, initial encounter [S91.109A] 05/28/2024 Encounter for management of wound VAC [Z46.89] 05/28/2024 Encounter Status:Closed by ADELIA LARSON on 05/30/24 Normal [facility] CONSULT PROGon 05-30-[address] [facility] CON[facility] CONSULT PROG [facility] NUTRITIONon 05-30-[address] [facility] Basic metabolic 2000 panelon 05-29-2024 Anion gap [Moles/Vol] 12 mmol/L Normal 8-15 [facility] Comment on above: Order Comment: Speci men Type: BLOOD SPECIMENOrdering Facility: [facility] Address: [address] [place] [address] Performed By: #### 2 4321-2 ####LATONIA LABORATORYCLIA [id number] [place] [id number] [place] Calcium [Mass/Vol] 9.1 mg/dL Normal 8.5-10.[address] [facility] Comment on above: Order Comment: Speci men Type: BLOOD SPECIMENOrdering Facility: [facility] Address: [address] [place] [place] [id number] Performed By: #### 2 4321-2 ####LATONIA LABORATORYCLIA [id number] [place] [address] [place] Chloride [Moles/Vol] 102 mmol/L Normal 98-107 [facility] [place] Comment on above: Order Comment: Speci men Type: BLOOD SPECIMENOrdering Facility: [facility] Address: [address] [place] [address] Performed By: #### 2 4321-2 ####LERNER LABORATORYCLIA [id number] [place] [address] [place] CO2 [Moles/Vol] 28 mmol/L Normal 22-[address] [facility] Comment on above: Order Comment: Speci men Type: BLOOD SPECIMENOrdering Facility: [facility] Address: [address] [place] [address] Performed By: #### 2 4321-2 ####LERNER LABORATORYCLIA [id number] [address] [place] Creatinine [Mass/Vol] 1.08 mg/dL Normal 0.73-1.22 [facility] Comment on above: Order Comment: Speci men Type: BLOOD SPECIMENOrdering Facility: [facility] Address: [address] [place] [address] Performed By: #### 2 4321-2 ####LERNER LABORATORYCLIA [id number] [address] Creatinine and Glomerular filtration rate.predicted panel (S/P/Bld) 75 mL/min/1.73m??? Normal >=[address] [facility] Comment on above: Order Comment: Raudel lorena Type: BLOOD SPECIMENOrdering Facility: [facility] Address: [address] [place] [address] Result Comment: Sachi mated Glomerular Filtration Rate (eGFR) is calculated using the 2020 CKD-EPI creatinine equation. This equation utilizes serum creatinine, sex, and age as parameters. The creatinine assay has traceable calibration to isotope dilution-mass spectrometry. Refer to KDIGO guidelines for clinical interpretation. In patients with unstable renal function, e.g. those with acute kidney injury, the eGFR may not accurately reflect actual GFR. Performed By: #### 2 4321-2 ####LERNER LABORATORYCLIA [id number] [place] [address] [place] Glucose [Mass/Vol] 142 mg/dL High 74-[address] [facility] Comment on above: Order Comment: Raudel men Type: BLOOD SPECIMENOrdering Facility: [facility] Address: [address] [place] [address] Result Comment: The [place] [employer] (ADA) provides guidance for cutoff values for fasting glucose and random glucose. The ADA defines fasting as no caloric intake for at least 8 hours. Fasting plasma glucose results between 100 to 125 mg/dL indicate increased risk for diabetes (prediabetes).Fasting plasma glucose results greater than or equal to 126 mg/dL meet the criteria for diagnosis of diabetes. In the absence of unequivocal hyperglycemia, results should be confirmed by repeat testing. In a patient with classic symptoms of hyperglycemia or hyperglycemic crisis, random plasma glucose results greater than or equal to 200 mg/dL meet the criteria for diagnosis of diabetes.Reference: Standards of Medical Care in Diabetes 2016, [place] [employer]. Diabetes Care. 2016.39(Suppl 1). Performed By: #### 2 4321-2 ####LERNER LABORATORYCLIA [id number] [place] [address] [place] Potassium [Moles/Vol] 4.1 mmol/L Normal 3.7-5.1 [facility] Comment on above: Order Comment: Raudel [facility] Type: BLOOD SPECIMENOrdering Facility: [facility] Address: [address] [place] [address] Performed By: #### 2 4321-2 ####LERNER LABORATORYCLIA [id number] [place] [address] [place] Sodium [Moles/Vol] 142 mmol/L Normal 136-[address] [facility] Comment on above: Order Comment: Payali men Type: BLOOD SPECIMENOrdering Facility: [facility] Address: [address] [place] [address] Performed By: #### 2 4321-2 ####LERNER LABORATORYCLIA [id number] [place] [address] [place] Urea nitrogen [Mass/Vol] 11 mg/dL Normal 9-[address] [facility] Comment on above: Order Comment: Payali men Type: BLOOD SPECIMENOrdering Facility: [facility] Address: [address] [place] [address] Performed By: #### 2 4321-2 ####LERNER LABORATORYCLIA [id number] [place] [address] [place] CASE MANAGEMon 05-29-2024 CASE MANAGEM Normal [facility] CONSULTon 05-29-2024 CONSULT Normal [facility] CONSULT PROGon 05-29-[address] [facility] [facility]OG [facility] NURSING PROGon 05-29-[address] [facility] Basic metabolic 2000 panelon 05-28-2024 Anion gap [Moles/Vol] 11 mmol/L Normal 8-15 [facility] Comment on above: Order Comment: Speci men Type: BLOOD SPECIMENOrdering Facility: [facility] Address: [address] [place] [address] Performed By: #### 2 4321-2 ####LERNER LABORATORYCLIA [id number] [place] [address] [place] Calcium [Mass/Vol] 9.5 mg/dL Normal 8.5-10.[address] [facility] Comment on above: Order Comment: Speci men Type: BLOOD SPECIMENOrdering Facility: [facility] Address: [address] [place] [address] Performed By: #### 2 4321-2 ####LERNER LABORATORYCLIA [id number] [place] [address] [place] Chloride [Moles/Vol] 104 mmol/L Normal 98-107 [facility] [place] Comment on above: Order Comment: Speci men Type: BLOOD SPECIMENOrdering Facility: [facility] Address: [address] [place] [address] Performed By: #### 2 4321-2 ####LERNER LABORATORYCLIA [id number] [place] [address] [place] CO2 [Moles/Vol] 29 mmol/L Normal 22-[address] [facility] Comment on above: Order Comment: Speci men Type: BLOOD SPECIMENOrdering Facility: [facility] Address: [address] [place] [address] Performed By: #### 2 4321-2 ####LERNER LABORATORYCLIA [id number] [place] [address] [place] Creatinine [Mass/Vol] 1.12 mg/dL Normal 0.73-1.22 [facility] Comment on above: Order Comment: Payalalejandro carrillo Type: BLOOD SPECIMENOrdering Facility: [facility] Address: [address] [place] [address] Performed By: #### 2 4321-2 ####LERNER LABORATORYCLIA [id number] [place] [address] [place] Creatinine and Glomerular filtration rate.predicted panel (S/P/Bld) 72 mL/min/1.73m??? Normal >=[address] [facility] Comment on above: Order Comment: Payalalejandro carrillo Type: BLOOD SPECIMENOrdering Facility: [facility] Address: [address] [place] [address] Result Comment: Sachi mated Glomerular Filtration Rate (eGFR) is calculated using the 2020 CKD-EPI creatinine equation. This equation utilizes serum creatinine, sex, and age as parameters. The creatinine assay has traceable calibration to isotope dilution-mass spectrometry. Refer to KDIGO guidelines for clinical interpretation. In patients with unstable renal function, e.g. those with acute kidney injury, the eGFR may not accurately reflect actual GFR. Performed By: #### 2 4321-2 ####LATONIA LABORATORYCLIA [id number] [place] [id number] [place] Glucose [Mass/Vol] 129 mg/dL High 74-[address] [facility] Comment on above: Order Comment: Raudel carrillo Type: BLOOD SPECIMENOrdering Facility: [facility] Address: [address] [place] [address] Result Comment: The [place] [employer] (ADA) provides guidance for cutoff values for fasting glucose and random glucose. The ADA defines fasting as no caloric intake for at least 8 hours. Fasting plasma glucose results between 100 to 125 mg/dL indicate increased risk for diabetes (prediabetes).Fasting plasma glucose results greater than or equal to 126 mg/dL meet the criteria for diagnosis of diabetes. In the absence of unequivocal hyperglycemia, results should be confirmed by repeat testing. In a patient with classic symptoms of hyperglycemia or hyperglycemic crisis, random plasma glucose results greater than or equal to 200 mg/dL meet the criteria for diagnosis of diabetes.Reference: Standards of Medical Care in Diabetes 2016, [place] [employer]. Diabetes Care. 2016.39(Suppl 1). Performed By: #### 2 4321-2 ####LERNER LABORATORYCLIA [id number] [address] STATES OF [facility] Potassium [Moles/Vol] 4.2 mmol/L Normal 3.7-5.1 [facility] Comment on above: Order Comment: Speci men Type: BLOOD SPECIMENOrdering Facility: [facility] Address: [address] [place] [address] Performed By: #### 2 4321-2 ####LERNER LABORATORYCLIA [id number] [address] [place] Sodium [Moles/Vol] 144 mmol/L Normal 136-[address] [facility] Comment on above: Order Comment: Speci men Type: BLOOD SPECIMENOrdering Facility: [facility] Address: [address] [place] [address] Performed By: #### 2 4321-2 ####LERNER LABORATORYCLIA [id number] [address] STATES OF [facility] Urea nitrogen [Mass/Vol] 9 mg/dL Normal 9-[address] [facility] Comment on above: Order Comment: Speci men Type: BLOOD SPECIMENOrdering Facility: [facility] Address: [address] [place] [address] Performed By: #### 2 4321-2 ####LERNER LABORATORYCLIA [id number] [address] [place] CASE MANAGEMon 05-28-2024 CASE MANAGEM Normal [facility] CBC panel Auto (Bld)on 05-28 Erythrocyte distribution width (RBC) [Ratio] 16.1 % High 11.5-15.[address] [facility] Comment on above: Order Comment: Speci men Type: BLOOD SPECIMENOrdering Facility: [facility] Address: [address] [place] [address] Performed By: #### 5 8410-2 ####LERNER LABORATORYCLIA [id number] [address] OF [facility] Hematocrit (Bld) [Volume fraction] 44.4 % Normal 39.0-51.[address] [facility] Comment on above: Order Comment: Speci men Type: BLOOD SPECIMENOrdering Facility: [facility] Address: [address] [place] [address] Performed By: #### 5 8410-2 ####LERNER LABORATORYCLIA [id number] [address] Hemoglobin (Bld) [Mass/Vol] 13.9 g/dL Normal 13.0-17.[address] [facility] Comment on above: Order Comment: Speci men Type: BLOOD SPECIMENOrdering Facility: [facility] Address: [address] [place] [address] Performed By: #### 5 8410-2 ####LERNER LABORATORYCLIA [id number] [address] MCH (RBC) [Entitic mass] 27.7 pg Normal 26.0-34.[address] [facility] Comment on above: Order Comment: Speci men Type: BLOOD SPECIMENOrdering Facility: [facility] Address: [address] [place] [address] Performed By: #### 5 8410-2 ####LERNER LABORATORYCLIA [id number] [address] MCHC (RBC) [Mass/Vol] 31.3 g/dL Normal 30.5-36.0 [facility] Comment on above: Order Comment: Speci men Type: BLOOD SPECIMENOrdering Facility: [facility] Address: [address] [place] [address] Performed By: #### 5 8410-2 ####LERNER LABORATORYCLIA [id number] [address] MCV (RBC) [Entitic vol] 88.6 fL Normal 80.0-100.0 [facility] Comment on above: Order Comment: Speci men Type: BLOOD SPECIMENOrdering Facility: [facility] Address: [address] [place] [address] Performed By: #### 5 8410-2 ####LERNER LABORATORYCLIA [id number] [address] Nucleated RBC (Bld) [#/Vol] 10*3/uL Normal <0.[address] [facility] Comment on above: Order Comment: Speci men Type: BLOOD SPECIMENOrdering Facility: [facility] Address: [address] [place] [address] Performed By: #### 5 8410-2 ####LERNER LABORATORYCLIA [id number] [place] [address] [place] Platelet mean volume (Bld) [Entitic vol] 9.9 fL Normal 9.0-12.[address] [facility] Comment on above: Order Comment: Speci men Type: BLOOD SPECIMENOrdering Facility: [facility] Address: [address] [place] [address] Performed By: #### 5 8410-2 ####LERNER LABORATORYCLIA [id number] [place] [address] [place] Platelets (Bld) [#/Vol] 244 10*3/uL Normal 150-[address] [facility] Comment on above: Order Comment: Speci men Type: BLOOD SPECIMENOrdering Facility: [facility] Address: [address] [place] [address] Performed By: #### 5 8410-2 ####LERNER LABORATORYCLIA [id number] [place] [address] [place] RBC (Bld) [#/Vol] 5.01 10*6/uL Normal 4.20-6.00 [facility] Comment on above: Order Comment: Speci men Type: BLOOD SPECIMENOrdering Facility: [facility] Address: [address] [place] [address] Performed By: #### 5 8410-2 ####LERNER LABORATORYCLIA [id number] [place] [address] [place] WBC (Bld) [#/Vol] 9.10 10*3/uL Normal 3.70-11.00 [facility] Comment on above: Order Comment: Speci men Type: BLOOD SPECIMENOrdering Facility: [facility] Address: [address] [place] [address] Performed By: #### 5 8410-2 ####LERNER LABORATORYCLIA [id number] [place] [address] [place] [facility] [place] CONSULT PROGon 05-28-[address] [facility] CONSULT PROG Normal [facility] THERAPY NTon 05-28-[address] [facility] Vancomycin Medora SerPl-mCncon 05-28-2024 Vancomycin random [Mass/Vol] 16.5 ug/mL Normal 10.0-20.[address] [facility] Comment on above: Order Comment: Speci men Type: BLOOD SPECIMENOrdering Facility: [facility] Address: [address] [place], [place] [address] [address] Result Comment: Refe rence ranges and high/low indicator flags are provided as general guidelines only. The treating physician must determine appropriate target levels/dosing based on the specific clinical situation. Performed By: #### 4 091-5 ####LERNER LABORATORYCLIA [id number] [place] [address] [place] Basic metabolic 2000 panelon 05-27-2024 Anion gap [Moles/Vol] 10 mmol/L Normal 8-15 [facility] Comment on above: Order Comment: Speci men Type: BLOOD SPECIMENOrdering Facility: [facility] Address: [address] [place] [address] Performed By: #### 2 4321-2 ####LATONIA LABORATORYCLIA [id number] [place] [address] [place] Calcium [Mass/Vol] 8.9 mg/dL Normal 8.5-10.[address] [facility] Comment on above: Order Comment: Speci men Type: BLOOD SPECIMENOrdering Facility: [facility] Address: [address] [place] [address] Performed By: #### 2 4321-2 ####LERNER LABORATORYCLIA [id number] [place] [address] [place] Chloride [Moles/Vol] 102 mmol/L Normal 98-107 [facility] [place] Comment on above: Order Comment: Speci men Type: BLOOD SPECIMENOrdering Facility: [facility] Address: [address] [place] [address] Performed By: #### 2 4321-2 ####LERNER LABORATORYCLIA [id number] [address] [place] CO2 [Moles/Vol] 29 mmol/L Normal 22-[address] [facility] Comment on above: Order Comment: Raudel carrillo Type: BLOOD SPECIMENOrdering Facility: [facility] Address: [address] [place] [address] Performed By: #### 2 4321-2 ####LERNER LABORATORYCLIA [id number] [address] [place] Creatinine [Mass/Vol] 1.17 mg/dL Normal 0.73-1.22 [facility] Comment on above: Order Comment: Raudel carrillo Type: BLOOD SPECIMENOrdering Facility: [facility] Address: [address] [place] [address] Performed By: #### 2 4321-2 ####LERNER LABORATORYCLIA [id number] [address] Creatinine and Glomerular filtration rate.predicted panel (S/P/Bld) 68 mL/min/1.73m??? Normal >=[address] [facility] Comment on above: Order Comment: Raudel carrillo Type: BLOOD SPECIMENOrdering Facility: [facility] Address: [address] [place] [address] Result Comment: Sachi mated Glomerular Filtration Rate (eGFR) is calculated using the 2020 CKD-EPI creatinine equation. This equation utilizes serum creatinine, sex, and age as parameters. The creatinine assay has traceable calibration to isotope dilution-mass spectrometry. Refer to KDIGO guidelines for clinical interpretation. In patients with unstable renal function, e.g. those with acute kidney injury, the eGFR may not accurately reflect actual GFR. Performed By: #### 2 4321-2 ####LERNER LABORATORYCLIA [id number] [address] [place] Glucose [Mass/Vol] 121 mg/dL High 74-[address] [facility] Comment on above: Order Comment: Raudel lorena Type: BLOOD SPECIMENOrdering Facility: [facility] Address: [address] [place] [address] Result Comment: The [place] [employer] (ADA) provides guidance for cutoff values for fasting glucose and random glucose. The ADA defines fasting as no caloric intake for at least 8 hours. Fasting plasma glucose results between 100 to 125 mg/dL indicate increased risk for diabetes (prediabetes).Fasting plasma glucose results greater than or equal to 126 mg/dL meet the criteria for diagnosis of diabetes. In the absence of unequivocal hyperglycemia, results should be confirmed by repeat testing. In a patient with classic symptoms of hyperglycemia or hyperglycemic crisis, random plasma glucose results greater than or equal to 200 mg/dL meet the criteria for diagnosis of diabetes.Reference: Standards of Medical Care in Diabetes 2016, [place] [employer]. Diabetes Care. 2016.39(Suppl 1). Performed By: #### 2 4321-2 ####LERNER LABORATORYCLIA [id number] [address] [place] Potassium [Moles/Vol] 3.6 mmol/L Low 3.7-5.1 [facility] Comment on above: Order Comment: Raudel carrillo Type: BLOOD SPECIMENOrdering Facility: [facility] Address: [address] [place] [address] Performed By: #### 2 4321-2 ####LERNER LABORATORYCLIA [id number] [address] [place] Sodium [Moles/Vol] 141 mmol/L Normal 136-[address] [facility] Comment on above: Order Comment: Raudel carrillo Type: BLOOD SPECIMENOrdering Facility: [facility] Address: [address] [place] [address] Performed By: #### 2 4321-2 ####LERNER LABORATORYCLIA [id number] [address] STATES [facility] Urea nitrogen [Mass/Vol] 14 mg/dL Normal 9-[address] [facility] Comment on above: Order Comment: Raudel carrillo Type: BLOOD SPECIMENOrdering Facility: [facility] Address: [address] [place] [address] Performed By: #### 2 4321-2 ####LERNER LABORATORYCLIA [id number] [address] [place] CASE MANAGEMon 05-27-2024 CASE MANAGEM Normal [facility] CBC panel Auto (Bld)on 05-27 Erythrocyte distribution width (RBC) [Ratio] 15.9 % High 11.5-15.[address] [facility] Comment on above: Order Comment: Speci men Type: BLOOD SPECIMENOrdering Facility: [facility] Address: [address] [place] [address] Performed By: #### 5 8410-2 ####LERNER LABORATORYCLIA [id number] [address] OF [facility] Hematocrit (Bld) [Volume fraction] 40.7 % Normal 39.0-51.[address] [facility] Comment on above: Order Comment: Speci men Type: BLOOD SPECIMENOrdering Facility: [facility] Address: [address] [place] [address] Performed By: #### 5 8410-2 ####LERNER LABORATORYCLIA [id number] [address] OF [facility] Hemoglobin (Bld) [Mass/Vol] 12.9 g/dL Low 13.0-17.[address] [facility] Comment on above: Order Comment: Speci men Type: BLOOD SPECIMENOrdering Facility: [facility] Address: [address] [place] [address] Performed By: #### 5 8410-2 ####LERNER LABORATORYCLIA [id number] [address] MCH (RBC) [Entitic mass] 28.1 pg Normal 26.0-34.[address] [facility] Comment on above: Order Comment: Speci men Type: BLOOD SPECIMENOrdering Facility: [facility] Address: [address] [place] [address] Performed By: #### 5 8410-2 ####LERNER LABORATORYCLIA [id number] [address] MCHC (RBC) [Mass/Vol] 31.7 g/dL Normal 30.5-36.0 [facility] Comment on above: Order Comment: Speci men Type: BLOOD SPECIMENOrdering Facility: [facility] Address: [address] [place] [address] Performed By: #### 5 8410-2 ####LERNER LABORATORYCLIA [id number] [address] MCV (RBC) [Entitic vol] 88.7 fL Normal 80.0-100.0 [facility] Comment on above: Order Comment: Speci men Type: BLOOD SPECIMENOrdering Facility: [facility] Address: [address] [place] [address] Performed By: #### 5 8410-2 ####LERNER LABORATORYCLIA [id number] [place] [address] [place] Nucleated RBC (Bld) [#/Vol] 10*3/uL Normal <0.[address] [facility] Comment on above: Order Comment: Speci men Type: BLOOD SPECIMENOrdering Facility: [facility] Address: [address] [place] [address] Performed By: #### 5 8410-2 ####LERNER LABORATORYCLIA [id number] [place] [address] [place] Platelet mean volume (Bld) [Entitic vol] 10.4 fL Normal 9.0-12.[address] [facility] Comment on above: Order Comment: Speci men Type: BLOOD SPECIMENOrdering Facility: [facility] Address: [address] [place] [address] Performed By: #### 5 8410-2 ####LERNER LABORATORYCLIA [id number] [place] [address] [place] Platelets (Bld) [#/Vol] 237 10*3/uL Normal 150-[address] [facility] Comment on above: Order Comment: Speci men Type: BLOOD SPECIMENOrdering Facility: [facility] Address: [address] [place] [address] Performed By: #### 5 8410-2 ####LERNER LABORATORYCLIA [id number] [place] [address] [place] RBC (Bld) [#/Vol] 4.59 10*6/uL Normal 4.20-6.00 [facility] Comment on above: Order Comment: Speci men Type: BLOOD SPECIMENOrdering Facility: [facility] Address: [facility] [place] [address] Performed By: #### 5 8410-2 ####LERNER LABORATORYCLIA [id number] [place] [address] [place] WBC (Bld) [#/Vol] 7.32 10*3/uL Normal 3.70-11.00 [facility] Comment on above: Order Comment: Speci men Type: BLOOD SPECIMENOrdering Facility: [facility] Address: [address] [place] [address] Performed By: #### 5 8410-2 ####LATONIA LABORATORYCLIA [id number] [place] [id number] [place] CONSULT PROGon 05-27-2024 CONSULT PROG Normal [facility] ALLIED HEALTHon 05-26-[address] [facility] BRIEF OP NOTon 05-26-[address] [facility] Bacteria Spec Anaerobe Culto n 05-26-2024 Bacteria identified Anaer cx Nom (Unsp spec) Negative [facility] Comment on above: Performed By: #### 6 35-3, 6462-6 ####[facility] LAB[facility]IA [id number] [place] [address] [place] Bacteria identified Anaer cx Nom (Unsp spec) Negative [facility] Comment on above: Performed By: #### 6 35-3, 51322-4, 33440-5 ####[facility] [id number] [address] [address] [place] Bacteria Tiss Culton 024 Bacteria identified Cx Nom (Tiss) Abnormal [facility] Comment on above: Performed By: #### 6 35-3, 79331-0, 22609-4 ####[facility] [id number] [address] [address] [place] Bacteria Wnd Culton 05-26-20 24 Bacteria identified Cx Nom (Wound) Abnormal [facility] Comment on above: Performed By: #### 6 35-3, 6462-6 ####[facility] [id number] [address] [address] [place] Basic metabolic 2000 panelon 05-26-2024 Anion gap [Moles/Vol] 13 mmol/L Normal 8-15 [facility] Comment on above: Order Comment: Speci men Type: BLOOD SPECIMENOrdering Facility: [facility] Address: [address] [place] [address] Performed By: #### 2 4321-2 ####[facility]ORATORYCLIA [id number] [place] [address] [place] Calcium [Mass/Vol] 8.8 mg/dL Normal 8.5-10.[address] [facility] Comment on above: Order Comment: Speci men Type: BLOOD SPECIMENOrdering Facility: [facility] Address: [address] [place] [address] Performed By: #### 2 4321-2 ####[facility] LABORATORYCLIA [id number] [place] [address] [place] Chloride [Moles/Vol] 102 mmol/L Normal 98-107 [facility] [place] Comment on above: Order Comment: Speci men Type: BLOOD SPECIMENOrdering Facility: [facility] Address: [address] [place] [address] Performed By: #### 2 4321-2 ####[facility] LABORATORYCLIA [id number] [place] [address] [place] CO2 [Moles/Vol] 26 mmol/L Normal 22-[address] [facility] Comment on above: Order Comment: Speci men Type: BLOOD SPECIMENOrdering Facility: [facility] Address: [address] [place] [address] Performed By: #### 2 4321-2 ####[facility] LABORATORYCLIA [id number] [place] [id number] [place] Creatinine [Mass/Vol] 1.26 mg/dL High 0.73-1.22 [facility] Comment on above: Order Comment: Speci men Type: BLOOD SPECIMENOrdering Facility: [facility] Address: [address] [place] [address] Performed By: #### 2 4321-2 ####[facility] LABORATORYCLIA [id number] [place] [id number] [place] Creatinine and Glomerular filtration rate.predicted panel (S/P/Bld) 63 mL/min/1.73m??? Normal >=[address] [facility] Comment on above: Order Comment: Raudel carrillo Type: BLOOD SPECIMENOrdering Facility: [facility] Address: [address] [place] [address] Result Comment: Sachi mated Glomerular Filtration Rate (eGFR) is calculated using the 2020 CKD-EPI creatinine equation. This equation utilizes serum creatinine, sex, and age as parameters. The creatinine assay has traceable calibration to isotope dilution-mass spectrometry. Refer to KDIGO guidelines for clinical interpretation. In patients with unstable renal function, e.g. those with acute kidney injury, the eGFR may not accurately reflect actual GFR. Performed By: #### 2 4321-2 ####[facility] LABORATORYCLIA [id number] [place] [address] [place] Glucose [Mass/Vol] 118 mg/dL High 74-[address] [facility] Comment on above: Order Comment: Raudel carrillo Type: BLOOD SPECIMENOrdering Facility: [facility] Address: [address] [place] [address] Result Comment: The [place] [employer] (ADA) provides guidance for cutoff values for fasting glucose and random glucose. The ADA defines fasting as no caloric intake for at least 8 hours. Fasting plasma glucose results between 100 to 125 mg/dL indicate increased risk for diabetes (prediabetes).Fasting plasma glucose results greater than or equal to 126 mg/dL meet the criteria for diagnosis of diabetes. In the absence of unequivocal hyperglycemia, results should be confirmed by repeat testing. In a patient with classic symptoms of hyperglycemia or hyperglycemic crisis, random plasma glucose results greater than or equal to 200 mg/dL meet the criteria for diagnosis of diabetes.Reference: Standards of Medical Care in Diabetes 2016, [place] [employer]. Diabetes Care. 2016.39(Suppl 1). Performed By: #### 2 4321-2 ####[facility]ATORYCLIA [id number] [place] [id number] [place] Potassium [Moles/Vol] 3.4 mmol/L Low 3.7-5.1 [facility] Comment on above: Order Comment: Raudel carrillo Type: BLOOD SPECIMENOrdering Facility: [facility] Address: [address] [place] [id number] Performed By: #### 2 4321-2 ####[facility] LABORATORYCLIA [id number] [address] STATES [facility] Sodium [Moles/Vol] 141 mmol/L Normal 136-[address] [facility] Comment on above: Order Comment: Speci men Type: BLOOD SPECIMENOrdering Facility: [facility] Address: [address] [place] [address] Performed By: #### 2 4321-2 ####[facility] LABORATORYCLIA [id number] [address] [place] Urea nitrogen [Mass/Vol] 16 mg/dL Normal 9-[address] [facility] Comment on above: Order Comment: Speci men Type: BLOOD SPECIMENOrdering Facility: [facility] Address: [address] [place] [address] Performed By: #### 2 4321-2 ####[facility] LABORATORYCLIA [id number] [address] CBC panel Auto (Bld)on 05-26 Erythrocyte distribution width (RBC) [Ratio] 15.6 % High 11.5-15.[address] [facility] Comment on above: Order Comment: Speci men Type: BLOOD SPECIMENOrdering Facility: [facility] Address: [address] [place] [address] Performed By: #### 5 8410-2 ####[facility] LABORATORYCLIA [id number] [address] Hematocrit (Bld) [Volume fraction] 42.6 % Normal 39.0-51.[address] [facility] Comment on above: Order Comment: Speci men Type: BLOOD SPECIMENOrdering Facility: [facility] Address: [address] [place] [address] Performed By: #### 5 8410-2 ####[facility] LABORATORYCLIA [id number] [address] [place] Hemoglobin (Bld) [Mass/Vol] 13.4 g/dL Normal 13.0-17.[address] [facility] Comment on above: Order Comment: Speci men Type: BLOOD SPECIMENOrdering Facility: [facility] Address: [address] [place] [address] Performed By: #### 5 8410-2 ####[facility] LABORATORYCLIA [id number] [address] MCH (RBC) [Entitic mass] 27.7 pg Normal 26.0-34.[address] [facility] Comment on above: Order Comment: Speci men Type: BLOOD SPECIMENOrdering Facility: [facility] Address: [address] [place] [address] Performed By: #### 5 8410-2 ####[facility] LABORATORYCLIA [id number] [address] MCHC (RBC) [Mass/Vol] 31.5 g/dL Normal 30.5-36.0 [facility] Comment on above: Order Comment: Speci men Type: BLOOD SPECIMENOrdering Facility: [facility] Address: [address] [place] [address] Performed By: #### 5 8410-2 ####[facility] LABORATORYCLIA [id number] [address] MCV (RBC) [Entitic vol] 88.2 fL Normal 80.0-100.0 [facility] Comment on above: Order Comment: Speci men Type: BLOOD SPECIMENOrdering Facility: [facility] Address: [address] [place] [address] Performed By: #### 5 8410-2 ####[facility] LABORATORYCLIA [id number] [address] Nucleated RBC (Bld) [#/Vol] 10*3/uL Normal <0.[address] [facility] Comment on above: Order Comment: Speci men Type: BLOOD SPECIMENOrdering Facility: [facility] Address: [address] [place] [address] Performed By: #### 5 8410-2 ####[facility] LABORATORYCLIA [id number] [address] Platelet mean volume (Bld) [Entitic vol] 10.1 fL Normal 9.0-12.[address] [facility] Comment on above: Order Comment: Speci men Type: BLOOD SPECIMENOrdering Facility: [facility] Address: [address] [place] [address] Performed By: #### 5 8410-2 ####[facility] LABORATORYCLIA [id number] [place] [address] [place] [facility] [place] Platelets (Bld) [#/Vol] 225 10*3/uL Normal 150-[address] [facility] Comment on above: Order Comment: Speci men Type: BLOOD SPECIMENOrdering Facility: [facility] Address: [address] [place] [address] Performed By: #### 5 8410-2 ####[facility]ATORYCLIA [id number] [place] [address] [place] RBC (Bld) [#/Vol] 4.83 10*6/uL Normal 4.20-6.00 [facility] Comment on above: Order Comment: Speci men Type: BLOOD SPECIMENOrdering Facility: [facility] Address: [address] [place] [address] Performed By: #### 5 8410-2 ####[facility]ORATORYCLIA [id number] [place] [address] [place] WBC (Bld) [#/Vol] 8.73 10*3/uL Normal 3.70-11.00 [facility] Comment on above: Order Comment: Speci men Type: BLOOD SPECIMENOrdering Facility: [facility] Address: [address] [place] [address] Performed By: #### 5 8410-2 ####[facility]ORATORYCLIA [id number] [place] [address] [place] CONSULTon 05-26-[address] [facility] CONSULT PROGon 05-26-[address] [facility] CTA ABD/PEL/LOWER EXT W IVCO Non 05-26-2024 CTA ABD/PEL/LOWER EXT W IVCON [facility] Microorganism Spec Culton Microorganism identified Cx Nom (Unsp spec) ORGANISM ID: 1 Rare Gurpreet parapsilosis complex No susceptibility testing done. Call lab within 72 hours to initiate work-up if clinically indicated. FUNGAL SMEAR: No fungus seen Abnormal [facility] Comment on above: Performed By: #### 6 35-3, 48672-0, 48406-5 ####[facility] LABCLIA [id number] [facility] [place] [id number] [place] OPERATIVE NOon 05-26-2024 OPERATIVE NO Normal [facility] THERAPY NTon 05-26-2024 THERAPY NT Normal [facility] Vancomycin Medora SerPl-mCncon 05-26-2024 Vancomycin random [Mass/Vol] 14.3 ug/mL Normal 10.0-20.[address] [facility] Comment on above: Order Comment: Speci men Type: BLOOD SPECIMENOrdering Facility: [facility] Address: [address] [place] [address] Result Comment: Refe rence ranges and high/low indicator flags are provided as general guidelines only. The treating physician must determine appropriate target levels/dosing based on the specific clinical situation. Performed By: #### 4 091-5 ####[facility] LABORATORYCLIA [id number] [place] [address] [place] ALLIED HEALTHon 05-25-2024 ALLIED HEALTH Normal [facility] Basic metabolic 2000 panelon 05-25-2024 Anion gap [Moles/Vol] 12 mmol/L Normal 8-15 [facility] Comment on above: Order Comment: Speci men Type: BLOOD SPECIMENOrdering Facility: [facility] Address: [address] [place] [address] Performed By: #### 2 4321-2 ####[facility] LABORATORYCLIA [id number] [place] [id number] [place] Calcium [Mass/Vol] 8.6 mg/dL Normal 8.5-10.[address] [facility] Comment on above: Order Comment: Speci men Type: BLOOD SPECIMENOrdering Facility: [facility] Address: [address] [place] [address] Performed By: #### 2 4321-2 ####[facility] LABORATORYCLIA [id number] [place] [id number] [place] Chloride [Moles/Vol] 100 mmol/L Normal 98-107 [facility] [place] Comment on above: Order Comment: Speci men Type: BLOOD SPECIMENOrdering Facility: [facility] Address: [address] [place] [address] Performed By: #### 2 4321-2 ####[facility] LABORATORYCLIA [id number] [place] [id number] [place] CO2 [Moles/Vol] 26 mmol/L Normal 22-[address] [facility] Comment on above: Order Comment: Speci men Type: BLOOD SPECIMENOrdering Facility: [facility] Address: [address] [place] [address] Performed By: #### 2 4321-2 ####[facility] LABORATORYCLIA [id number] [place] [address] [place] Creatinine [Mass/Vol] 1.34 mg/dL High 0.73-1.22 [facility] Comment on above: Order Comment: Speci men Type: BLOOD SPECIMENOrdering Facility: [facility] Address: [address] [place] [address] Performed By: #### 2 4321-2 ####[facility] LABORATORYCLIA [id number] [place] [address] [place] Creatinine and Glomerular filtration rate.predicted panel (S/P/Bld) 58 mL/min/1.73m??? Low >=[address] [facility] Comment on above: Order Comment: Speci men Type: BLOOD SPECIMENOrdering Facility: [facility] Address: [address] [place] [address] Result Comment: Sachi mated Glomerular Filtration Rate (eGFR) is calculated using the 2020 CKD-EPI creatinine equation. This equation utilizes serum creatinine, sex, and age as parameters. The creatinine assay has traceable calibration to isotope dilution-mass spectrometry. Refer to KDIGO guidelines for clinical interpretation. In patients with unstable renal function, e.g. those with acute kidney injury, the eGFR may not accurately reflect actual GFR. Performed By: #### 2 4321-2 ####[facility] LABORATORYCLIA [id number] [place] [address] [place] Glucose [Mass/Vol] 114 mg/dL High 74-[address] [facility] Comment on above: Order Comment: Speci men Type: BLOOD SPECIMENOrdering Facility: [facility] Address: [address] [place] [address] Result Comment: The [place] [employer] (ADA) provides guidance for cutoff values for fasting glucose and random glucose. The ADA defines fasting as no caloric intake for at least 8 hours. Fasting plasma glucose results between 100 to 125 mg/dL indicate increased risk for diabetes (prediabetes).Fasting plasma glucose results greater than or equal to 126 mg/dL meet the criteria for diagnosis of diabetes. In the absence of unequivocal hyperglycemia, results should be confirmed by repeat testing. In a patient with classic symptoms of hyperglycemia or hyperglycemic crisis, random plasma glucose results greater than or equal to 200 mg/dL meet the criteria for diagnosis of diabetes.Reference: Standards of Medical Care in Diabetes 2016, [place] [employer]. Diabetes Care. 2016.39(Suppl 1). Performed By: #### 2 4321-2 ####[facility] LABORATORYCLIA [id number] [place] [address] [place] Potassium [Moles/Vol] 3.8 mmol/L Normal 3.7-5.1 [facility] Comment on above: Order Comment: Raudel lorena Type: BLOOD SPECIMENOrdering Facility: [facility] Address: [address] [place] [address] Performed By: #### 2 4321-2 ####[facility] LABORATORYCLIA [id number] [place] [address] [place] Sodium [Moles/Vol] 138 mmol/L Normal 136-[address] [facility] Comment on above: Order Comment: Payali men Type: BLOOD SPECIMENOrdering Facility: [facility] Address: [address] [place] [id number] Performed By: #### 2 4321-2 ####[facility] LABORATORYCLIA [id number] [place] [address] [place] Urea nitrogen [Mass/Vol] 15 mg/dL Normal 9-[address] [facility] Comment on above: Order Comment: Payali men Type: BLOOD SPECIMENOrdering Facility: [facility] Address: [address] [place] [id number] Performed By: #### 2 4321-2 ####[facility] LABORATORYCLIA [id number] [place] [address] [place] CASE MGT INIT ASSESon 2023 CASE MGT INIT ASSES Normal [facility] CBC panel Auto (Bld)on 05-25 Erythrocyte distribution width (RBC) [Ratio] 15.7 % High 11.5-15.[address] [facility] Comment on above: Order Comment: Speci men Type: BLOOD SPECIMENOrdering Facility: [facility] Address: [address] [place] [address] Performed By: #### 5 8410-2 ####[facility] LABORATORYCLIA [id number] [address] Hematocrit (Bld) [Volume fraction] 45.3 % Normal 39.0-51.[address] [facility] Comment on above: Order Comment: Speci men Type: BLOOD SPECIMENOrdering Facility: [facility] Address: [address] [place] [address] Performed By: #### 5 8410-2 ####[facility]ORATORYCLIA [id number] [address] [place] Hemoglobin (Bld) [Mass/Vol] 14.0 g/dL Normal 13.0-17.[address] [facility] Comment on above: Order Comment: Speci men Type: BLOOD SPECIMENOrdering Facility: [facility] Address: [address] [place] [address] Performed By: #### 5 8410-2 ####[facility] LABORATORYCLIA [id number] [place] [address] [place] MCH (RBC) [Entitic mass] 27.3 pg Normal 26.0-34.[address] [facility] Comment on above: Order Comment: Speci men Type: BLOOD SPECIMENOrdering Facility: [facility] Address: [address] [place] [address] Performed By: #### 5 8410-2 ####[facility] LABORATORYCLIA [id number] [place] [address] [place] MCHC (RBC) [Mass/Vol] 30.9 g/dL Normal 30.5-36.0 [facility] Comment on above: Order Comment: Speci men Type: BLOOD SPECIMENOrdering Facility: [facility] Address: [address] [place] [address] Performed By: #### 5 8410-2 ####[facility] LABORATORYCLIA [id number] [place] [address] [place] MCV (RBC) [Entitic vol] 88.3 fL Normal 80.0-100.0 [facility] Comment on above: Order Comment: Speci men Type: BLOOD SPECIMENOrdering Facility: [facility] Address: [address] [place] [address] Performed By: #### 5 8410-2 ####[facility] LABORATORYCLIA [id number] [place] [address] [place] Nucleated RBC (Bld) [#/Vol] 10*3/uL Normal <0.[address] [facility] Comment on above: Order Comment: Speci men Type: BLOOD SPECIMENOrdering Facility: [facility] Address: [address] [place] [address] Performed By: #### 5 8410-2 ####[facility] LABORATORYCLIA [id number] [place] [address] [place] Platelet mean volume (Bld) [Entitic vol] 9.8 fL Normal 9.0-12.[address] [facility] Comment on above: Order Comment: Speci men Type: BLOOD SPECIMENOrdering Facility: [facility] Address: [address] [place] [address] Performed By: #### 5 8410-2 ####[facility] LABORATORYCLIA [id number] [place] [address] [place] Platelets (Bld) [#/Vol] 230 10*3/uL Normal 150-[address] [facility] Comment on above: Order Comment: Speci men Type: BLOOD SPECIMENOrdering Facility: [facility] Address: [address] [place] [address] Performed By: #### 5 8410-2 ####[facility] LABORATORYCLIA [id number] [place] [address] [place] RBC (Bld) [#/Vol] 5.13 10*6/uL Normal 4.20-6.00 [facility] Comment on above: Order Comment: Speci men Type: BLOOD SPECIMENOrdering Facility: [facility] Address: [address] [place] [id number] Performed By: #### 5 8410-2 ####[facility] LABORATORYCLIA [id number] [place] [address] [place] WBC (Bld) [#/Vol] 10.34 10*3/uL Normal 3.70-11.00 [facility] [place] Comment on above: Order Comment: Speci men Type: BLOOD SPECIMENOrdering Facility: [facility] Address: [address] [place] [id number] Performed By: #### 5 8410-2 ####[facility] LABORATORYCLIA [id number] [address] CONSULT PROGon 05-25-[address] [facility] MRI FOOT/TOES WO IVCON LTon 05-25-2024 MRI FOOT/TOES WO IVCON LT Normal [facility] US ARTERIAL PVR LOWERon 12-0 US ARTERIAL PVR LOWER Normal [facility] Vancomycin Medora SerPl-mCncon 05-25-2024 Vancomycin random [Mass/Vol] 29.1 ug/mL High 10.0-20.[address] [facility] Comment on above: Order Comment: Speci men Type: BLOOD SPECIMENOrdering Facility: [facility] Address: [address] [place] [address] Result Comment: Refe rence ranges and high/low indicator flags are provided as general guidelines only. The treating physician must determine appropriate target levels/dosing based on the specific clinical situation. Performed By: #### 4 091-5 ####[facility] LABORATORYCLIA [id number] [address] [place] ALLIED HEALTHon 05-24-2024 ALLIED HEALTH Normal [facility] Bacteria Wnd Culton 05-24-20 24 Bacteria identified Cx Nom (Wound) ORGANISM ID: 2 Few skin mickey GRAM STAIN: Rare Yeast Rare Gram positive cocci Rare Polymorphonuclear leukocytes Abnormal [facility] Comment on above: Performed By: #### 6 462-6 ####[facility] LABCLIA [id number] ENRIQUEJono AVENUEDESK [id number] [place] Bilirub Conj SerPl-mCncon Bilirubin.conjugated [Mass/Vol] mg/dL Normal <0.[address] [facility] Comment on above: Order Comment: Speci men Type: BLOOD SPECIMENOrdering Facility: [facility] Address: [address] [place] [address] Result Comment: Resu lts may be falsely decreased due to interference from hemolysis. Suggest reorder as clinically indicated. Performed By: #### 1 9123-9, 82477-7, 77613-5 ####[facility] LABORATORYCLIA [id number] [address] CBC panel Auto (Bld)on 05-24 Erythrocyte distribution width (RBC) [Ratio] 15.4 % High 11.5-15.[address] [facility] Comment on above: Order Comment: Speci men Type: BLOOD SPECIMENOrdering Facility: [facility] Address: [address] [place] [address] Performed By: #### 5 8410-2 ####[facility] LABORATORYCLIA [id number] [address] Hematocrit (Bld) [Volume fraction] 44.0 % Normal 39.0-51.[address] [facility] Comment on above: Order Comment: Speci men Type: BLOOD SPECIMENOrdering Facility: [facility] Address: [address] [place] [address] Performed By: #### 5 8410-2 ####[facility] LABORATORYCLIA [id number] [address] Hemoglobin (Bld) [Mass/Vol] 14.2 g/dL Normal 13.0-17.[address] [facility] Comment on above: Order Comment: Speci men Type: BLOOD SPECIMENOrdering Facility: [facility] Address: [address] [place] [address] Performed By: #### 5 8410-2 ####[facility] LABORATORYCLIA [id number] [place] [address] MCH (RBC) [Entitic mass] 27.5 pg Normal 26.0-34.[address] [facility] Comment on above: Order Comment: Speci men Type: BLOOD SPECIMENOrdering Facility: [facility] Address: [address] [place] [address] Performed By: #### 5 8410-2 ####[facility] LABORATORYCLIA [id number] [address] MCHC (RBC) [Mass/Vol] 32.3 g/dL Normal 30.5-36.0 [facility] Comment on above: Order Comment: Speci men Type: BLOOD SPECIMENOrdering Facility: [facility] Address: [address] [place] [address] Performed By: #### 5 8410-2 ####[facility] LABORATORYCLIA [id number] [address] MCV (RBC) [Entitic vol] 85.1 fL Normal 80.0-100.0 [facility] Comment on above: Order Comment: Speci men Type: BLOOD SPECIMENOrdering Facility: [facility] Address: [address] [place] [address] Performed By: #### 5 8410-2 ####[facility] LABORATORYCLIA [id number] [address] Nucleated RBC (Bld) [#/Vol] 10*3/uL Normal <0.[address] [facility] Comment on above: Order Comment: Speci men Type: BLOOD SPECIMENOrdering Facility: [facility] Address: [address] [place] [address] Performed By: #### 5 8410-2 ####[facility] LABORATORYCLIA [id number] [address] Platelet mean volume (Bld) [Entitic vol] 9.9 fL Normal 9.0-12.[address] [facility] Comment on above: Order Comment: Speci men Type: BLOOD SPECIMENOrdering Facility: [facility] Address: [address] [place] [address] Performed By: #### 5 8410-2 ####[facility] LABORATORYCLIA [id number] [place] [address] [place] Platelets (Bld) [#/Vol] 242 10*3/uL Normal 150-[address] [facility] Comment on above: Order Comment: Speci men Type: BLOOD SPECIMENOrdering Facility: [facility] Address: [address] [place] [address] Performed By: #### 5 8410-2 ####LERNER LABORATORYCLIA [id number] [place] [address] [place] RBC (Bld) [#/Vol] 5.17 10*6/uL Normal 4.20-6.00 [facility] Comment on above: Order Comment: Speci men Type: BLOOD SPECIMENOrdering Facility: [facility] Address: [address] [place] [address] Performed By: #### 5 8410-2 ####LERNER LABORATORYCLIA [id number] [place] [address] [place] WBC (Bld) [#/Vol] 7.36 10*3/uL Normal 3.70-11.00 [facility] Comment on above: Order Comment: Speci men Type: BLOOD SPECIMENOrdering Facility: [facility] Address: [address] [place] [address] Performed By: #### 5 8410-2 ####LERNER LABORATORYCLIA [id number] [place] [id number] [facility] CONSULTon 05-24-2024 CONSULT Normal [facility] Comprehensive metabolic 2000 panelon 05-24-2024 Albumin [Mass/Vol] 3.8 g/dL Low 3.9-4.[address] [facility] Comment on above: Order Comment: Speci men Type: BLOOD SPECIMENOrdering Facility: [facility] Address: [address] [place] [address] Performed By: #### 1 9123-9, 67483-8, 79498-9 ####LERNER LABORATORYCLIA [id number] [place] [address] [place] ALP [Catalytic activity/Vol] 105 U/L Normal 38-[address] [facility] Comment on above: Order Comment: Speci men Type: BLOOD SPECIMENOrdering Facility: [facility] Address: [address] [place] [id number] Performed By: #### 1 9123-9, 61707-0, 94236-4 ####LERNER LABORATORYCLIA [id number] [address] ALT [Catalytic activity/Vol] 12 U/L Normal 10-[address] [facility] Comment on above: Order Comment: Speci men Type: BLOOD SPECIMENOrdering Facility: [facility] Address: [address] [place] [address] Performed By: #### 1 9123-9, 21082-8, 78971-8 ####LERNER LABORATORYCLIA [id number] [place] [address] [place] Anion gap [Moles/Vol] 14 mmol/L Normal 8-15 [facility] Comment on above: Order Comment: Speci men Type: BLOOD SPECIMENOrdering Facility: [facility] Address: [address] [place] [address] Performed By: #### 1 9123-9, 78176-8, 46962-1 ####LERNER LABORATORYCLIA [id number] [address] AST [Catalytic activity/Vol] 18 U/L Normal 14-[address] [facility] Comment on above: Order Comment: Speci men Type: BLOOD SPECIMENOrdering Facility: [facility] Address: [address] [place] [address] Performed By: #### 1 9123-9, 26272-2, 59935-8 ####LERNER LABORATORYCLIA [id number] [place] [address] [place] Bilirubin [Mass/Vol] 0.6 mg/dL Normal 0.2-1.3 [facility] [place] Comment on above: Order Comment: Speci men Type: BLOOD SPECIMENOrdering Facility: [facility] Address: [address] [place] [address] Performed By: #### 1 9123-9, 43934-0, 65013-1 ####LERNER LABORATORYCLIA [id number] [address] [place] Calcium [Mass/Vol] 9.0 mg/dL Normal 8.5-10.[address] [facility] Comment on above: Order Comment: Speci men Type: BLOOD SPECIMENOrdering Facility: [facility] Address: [address] [place] [address] Performed By: #### 1 9123-9, 18906-5, 03698-0 ####LERNER LABORATORYCLIA [id number] [place] [address] [place] Chloride [Moles/Vol] 96 mmol/L Low 98-107 [facility] [place] Comment on above: Order Comment: Speci men Type: BLOOD SPECIMENOrdering Facility: [facility] Address: [address] [place] [address] Performed By: #### 1 9123-9, 15000-3, 18663-2 ####LERNER LABORATORYCLIA [id number] [address] STATES OF [facility] CO2 [Moles/Vol] 25 mmol/L Normal 22-[address] [facility] Comment on above: Order Comment: Speci men Type: BLOOD SPECIMENOrdering Facility: [facility] Address: [address] [place] [address] Performed By: #### 1 9123-9, 87087-3, ####LERNER LABORATORYCLIA [id number] [address] [place] Creatinine [Mass/Vol] 0.93 mg/dL Normal 0.73-1.22 [facility] Comment on above: Order Comment: Speci men Type: BLOOD SPECIMENOrdering Facility: [facility] Address: [address] [place] [address] Performed By: #### 1 9123-9, 98866-8, 77224-5 ####LERNER LABORATORYCLIA [id number] [address] Creatinine and Glomerular filtration rate.predicted panel (S/P/Bld) 90 mL/min/1.73m??? Normal >=[address] [facility] Comment on above: Order Comment: Speci men Type: BLOOD SPECIMENOrdering Facility: [facility] Address: [address] [place] [address] Result Comment: Sachi mated Glomerular Filtration Rate (eGFR) is calculated using the 2020 CKD-EPI creatinine equation. This equation utilizes serum creatinine, sex, and age as parameters. The creatinine assay has traceable calibration to isotope dilution-mass spectrometry. Refer to KDIGO guidelines for clinical interpretation. In patients with unstable renal function, e.g. those with acute kidney injury, the eGFR may not accurately reflect actual GFR. Performed By: #### 1 9123-9, 37806-2, 64433-9 ####LATONIA LABORATORYCLIA [id number] [place] [id number] [place] Glucose [Mass/Vol] 100 mg/dL High 74-[address] [facility] Comment on above: Order Comment: Raudel carrillo Type: BLOOD SPECIMENOrdering Facility: [facility] Address: [address] [place] [address] Result Comment: The [place] [employer] (ADA) provides guidance for cutoff values for fasting glucose and random glucose. The ADA defines fasting as no caloric intake for at least 8 hours. Fasting plasma glucose results between 100 to 125 mg/dL indicate increased risk for diabetes (prediabetes).Fasting plasma glucose results greater than or equal to 126 mg/dL meet the criteria for diagnosis of diabetes. In the absence of unequivocal hyperglycemia, results should be confirmed by repeat testing. In a patient with classic symptoms of hyperglycemia or hyperglycemic crisis, random plasma glucose results greater than or equal to 200 mg/dL meet the criteria for diagnosis of diabetes.Reference: Standards of Medical Care in Diabetes 2016, [place] [employer]. Diabetes Care. 2016.39(Suppl 1). Performed By: #### 1 9123-9, 66416-3, 71056-0 ####LATONIA LABORATORYCLIA [id number] [place] [id number] [place] Potassium [Moles/Vol] 3.4 mmol/L Low 3.7-5.1 [facility] Comment on above: Order Comment: Raudel carrillo Type: BLOOD SPECIMENOrdering Facility: [facility] Address: [address] [place] [id number] Performed By: #### 1 9123-9, 86140-3, 00038-7 ####LATONIA LABORATORYCLIA [id number] [place] [address] [place] Protein [Mass/Vol] 7.2 g/dL Normal 6.3-8.[address] [facility] Comment on above: Order Comment: Speci men Type: BLOOD SPECIMENOrdering Facility: [facility] Address: [address] [place] [address] Performed By: #### 1 9123-9, 16650-2, 80144-4 ####LERNER LABORATORYCLIA [id number] [place] [address] [place] Sodium [Moles/Vol] 135 mmol/L Low 136-[address] [facility] Comment on above: Order Comment: Speci men Type: BLOOD SPECIMENOrdering Facility: [facility] Address: [address] [place] [address] Performed By: #### 1 9123-9, 16735-0, 10802-4 ####LATONIA LABORATORYCLIA [id number] [place] [address] [place] Urea nitrogen [Mass/Vol] 9 mg/dL Normal 9-[address] [facility] Comment on above: Order Comment: Speci men Type: BLOOD SPECIMENOrdering Facility: [facility] Address: [address] [place] [address] Performed By: #### 1 9123-9, 28749-0, 31286-6 ####LERNER LABORATORYCLIA [id number] [place] [id number] [place] ESR Westergren method (Bld) [Velocity]on 05-24-2024 ESR (Bld) [Velocity] 15 mm/h Normal 0-15 [facility] [place] Comment on above: Order Comment: Speci men Type: BLOOD SPECIMENOrdering Facility: [facility] Address: [address] [place] [address] Performed By: #### 4 537-7 ####[facility] LABCLIA [id number] [facility] [id number] [id number] [place] Magnesium SerPl-mCncon 05-24 Magnesium [Mass/Vol] 2.1 mg/dL Normal 1.7-2.3 [facility] [place] Comment on above: Order Comment: Speci men Type: BLOOD SPECIMENOrdering Facility: [facility] Address: [address] [place] [address] Performed By: #### 1 9123-9, 09272-5, 92395-3 ####LATONIA LABORATORYCLIA [id number] [place] [address] [place] ALLIED HEALTHon 05-23-2024 ALLIED HEALTH Normal [facility] Bacteria Wnd Culton 05-23-20 24 Bacteria identified Cx Nom (Wound) Abnormal [facility] Comment on above: Performed By: #### 6 462-6 ####[facility] LABCLIA [id number] [place] [address] [place] CBC W Auto Differential pane l (Bld)on 05-23-2024 Basophils (Bld) [#/Vol] 0.07 10*3/uL Normal <0.[address] [facility] Comment on above: Order Comment: Speci men Type: BLOOD SPECIMENOrdering Facility: [facility] Address: [address] [place] [address] Performed By: #### 5 7021-8 ####LATONIA LABORATORYCLIA [id number] [address] [place] Basophils/100 WBC (Bld) 0.7 % Normal [facility] Comment on above: Order Comment: Speci men Type: BLOOD SPECIMENOrdering Facility: [facility] Address: [address] [place] [address] Performed By: #### 5 7021-8 ####LATONIA LABORATORYCLIA [id number] [address] [place] Differential cell count method Nom (Bld) Auto Normal [facility] Comment on above: Order Comment: Speci men Type: BLOOD SPECIMENOrdering Facility: [facility] Address: [address] [place] [address] Performed By: #### 5 7021-8 ####LATONIA LABORATORYCLIA [id number] [place] [address] [place] Eosinophils (Bld) [#/Vol] 10*3/uL Normal <0.[address] [facility] Comment on above: Order Comment: Speci men Type: BLOOD SPECIMENOrdering Facility: [facility] Address: [address] [place] [address] Performed By: #### 5 7021-8 ####LERNER LABORATORYCLIA [id number] [address] [place] Eosinophils/100 WBC (Bld) 0.2 % Normal [facility] Comment on above: Order Comment: Speci men Type: BLOOD SPECIMENOrdering Facility: [facility] Address: [address] [place] [address] Performed By: #### 5 7021-8 ####LERNER LABORATORYCLIA [id number] [address] Erythrocyte distribution width (RBC) [Ratio] 15.6 % High 11.5-15.[address] [facility] Comment on above: Order Comment: Speci men Type: BLOOD SPECIMENOrdering Facility: [facility] Address: [address] [place] [address] Performed By: #### 5 7021-8 ####LERNER LABORATORYCLIA [id number] [address] Hematocrit (Bld) [Volume fraction] 48.5 % Normal 39.0-51.[address] [facility] Comment on above: Order Comment: Speci men Type: BLOOD SPECIMENOrdering Facility: [facility] Address: [address] [place] [address] Performed By: #### 5 7021-8 ####LERNER LABORATORYCLIA [id number] [address] Hemoglobin (Bld) [Mass/Vol] 15.8 g/dL Normal 13.0-17.[address] [facility] Comment on above: Order Comment: Speci men Type: BLOOD SPECIMENOrdering Facility: [facility] Address: [address] [place] [address] Performed By: #### 5 7021-8 ####LERNER LABORATORYCLIA [id number] [address] [place] Immature granulocytes (Bld) [#/Vol] 0.05 10*3/uL Normal <0.[address] [facility] Comment on above: Order Comment: Speci men Type: BLOOD SPECIMENOrdering Facility: [facility] Address: [address] [place] [address] Performed By: #### 5 7021-8 ####LERNER LABORATORYCLIA [id number] [place] [address] [place] Immature granulocytes/100 WBC (Bld) 0.5 % Normal [facility] Comment on above: Order Comment: Speci men Type: BLOOD SPECIMENOrdering Facility: [facility] Address: [address] [place] [address] Performed By: #### 5 7021-8 ####LERNER LABORATORYCLIA [id number] [place] [address] [place] Lymphocytes (Bld) [#/Vol] 1.45 10*3/uL Normal 1.00-4.[address] [facility] Comment on above: Order Comment: Speci men Type: BLOOD SPECIMENOrdering Facility: [facility] Address: [address] [place] [address] Performed By: #### 5 7021-8 ####LERNER LABORATORYCLIA [id number] [address] [place] Lymphocytes/100 WBC (Bld) 13.8 % Normal [facility] Comment on above: Order Comment: Speci men Type: BLOOD SPECIMENOrdering Facility: [facility] Address: [address] [place] [address] Performed By: #### 5 7021-8 ####LERNER LABORATORYCLIA [id number] [place] [address] [place] MCH (RBC) [Entitic mass] 27.5 pg Normal 26.0-34.[address] [facility] Comment on above: Order Comment: Speci men Type: BLOOD SPECIMENOrdering Facility: [facility] Address: [address] [place] [address] Performed By: #### 5 7021-8 ####LERNER LABORATORYCLIA [id number] [place] [address] [place] MCHC (RBC) [Mass/Vol] 32.6 g/dL Normal 30.5-36.0 [facility] Comment on above: Order Comment: Speci men Type: BLOOD SPECIMENOrdering Facility: [facility] Address: [address] [place] [address] Performed By: #### 5 7021-8 ####LERNER LABORATORYCLIA [id number] [place] [address] [place] MCV (RBC) [Entitic vol] 84.5 fL Normal 80.0-100.0 [facility] Comment on above: Order Comment: Speci men Type: BLOOD SPECIMENOrdering Facility: [facility] Address: [address] [place] [address] Performed By: #### 5 7021-8 ####LERNER LABORATORYCLIA [id number] [place] [address] [place] Monocytes (Bld) [#/Vol] 1.07 10*3/uL High <0.[address] [facility] Comment on above: Order Comment: Speci men Type: BLOOD SPECIMENOrdering Facility: [facility] Address: [address] [place] [address] Performed By: #### 5 7021-8 ####LERNER LABORATORYCLIA [id number] [address] STATES [facility] Monocytes/100 WBC (Bld) 10.2 % Normal [facility] Comment on above: Order Comment: Speci men Type: BLOOD SPECIMENOrdering Facility: [facility] Address: [address] [place] [address] Performed By: #### 5 7021-8 ####LERNER LABORATORYCLIA [id number] [place] [address] [place] Neutrophils (Bld) [#/Vol] 7.85 10*3/uL High 1.45-7.[address] [facility] Comment on above: Order Comment: Speci men Type: BLOOD SPECIMENOrdering Facility: [facility] Address: [address] [place] [address] Performed By: #### 5 7021-8 ####LERNER LABORATORYCLIA [id number] [address] [place] Neutrophils/100 WBC (Bld) 74.6 % Normal [facility] Comment on above: Order Comment: Speci men Type: BLOOD SPECIMENOrdering Facility: [facility] Address: [address] [place] [address] Performed By: #### 5 7021-8 ####LERNER LABORATORYCLIA [id number] [place] [address] [place] Nucleated RBC (Bld) [#/Vol] 10*3/uL Normal <0.[address] [facility] Comment on above: Order Comment: Speci men Type: BLOOD SPECIMENOrdering Facility: [facility] Address: [address] [place] [address] Performed By: #### 5 7021-8 ####LERNER LABORATORYCLIA [id number] [address] [place] Nucleated RBC/100 WBC (Bld) [Ratio] 0.0 /100 WBC Normal [facility] Comment on above: Order Comment: Speci men Type: BLOOD SPECIMENOrdering Facility: [facility] Address: [address] [place] [address] Performed By: #### 5 7021-8 ####LERNER LABORATORYCLIA [id number] [place] [address] [place] Platelet mean volume (Bld) [Entitic vol] 9.9 fL Normal 9.0-12.[address] [facility] Comment on above: Order Comment: Speci men Type: BLOOD SPECIMENOrdering Facility: [facility] Address: [address] [place] [address] Performed By: #### 5 7021-8 ####LERNER LABORATORYCLIA [id number] [place] [address] [place] Platelets (Bld) [#/Vol] 298 10*3/uL Normal 150-[address] [facility] Comment on above: Order Comment: Speci men Type: BLOOD SPECIMENOrdering Facility: [facility] Address: [address] [place] [address] Performed By: #### 5 7021-8 ####LERNER LABORATORYCLIA [id number] [place] [address] [place] RBC (Bld) [#/Vol] 5.74 10*6/uL Normal 4.20-6.00 [facility] Comment on above: Order Comment: Speci men Type: BLOOD SPECIMENOrdering Facility: [facility] Address: [address] [place] [address] Performed By: #### 5 7021-8 ####LATONIA LABORATORYCLIA [id number] [address] [place] WBC (Bld) [#/Vol] 10.51 10*3/uL Normal 3.70-11.00 [facility] [place] Comment on above: Order Comment: Speci men Type: BLOOD SPECIMENOrdering Facility: [facility] Address: [address] [place] [address] Performed By: #### 5 7021-8 ####LATONIA LABORATORYCLIA [id number] [address] CONSULT PROGon 05-23-2024 CONSULT PROG Normal [facility] CRP SerPl-mCncon 05-23-2024 CRP [Mass/Vol] 1.3 mg/dL High <0.[address] [facility] Comment on above: Order Comment: Speci men Type: BLOOD SPECIMENOrdering Facility: [facility] Address: [address] [place] [address] Performed By: #### 2 4323-8, 1987-10 ####LATONIA LABORATORYCLIA [id number] [place] [id number] [facility] [place] Comprehensive metabolic 2000 panelon 05-23-2024 Albumin [Mass/Vol] 4.0 g/dL Normal 3.9-4.[address] [facility] Comment on above: Order Comment: Speci men Type: BLOOD SPECIMENOrdering Facility: [facility] Address: [address] [place] [address] Performed By: #### 2 4323-8, 1987-10 ####LERNER LABORATORYCLIA [id number] [place] [id number] [place] ALP [Catalytic activity/Vol] 122 U/L High 38-[address] [facility] Comment on above: Order Comment: Speci men Type: BLOOD SPECIMENOrdering Facility: [facility] Address: [address] [place] [address] Performed By: #### 2 4323-01, 1987-10 ####LERNER LABORATORYCLIA [id number] [place] [address] [place] ALT [Catalytic activity/Vol] 13 U/L Normal 10-[address] [facility] Comment on above: Order Comment: Speci men Type: BLOOD SPECIMENOrdering Facility: [facility] Address: [address] [place] [address] Performed By: #### 2 4323-01, 1987-10 ####LERNER LABORATORYCLIA [id number] [place] [address] [place] Anion gap [Moles/Vol] 21 mmol/L High 8-15 [facility] Comment on above: Order Comment: Speci men Type: BLOOD SPECIMENOrdering Facility: [facility] Address: [address] [place] [address] Performed By: #### 2 4323-01, 1987-10 ####LERNER LABORATORYCLIA [id number] [place] [address] [place] AST [Catalytic activity/Vol] Normal [facility] Comment on above: Order Comment: Speci men Type: BLOOD SPECIMENOrdering Facility: [facility] Address: [address] [place] [address] Result Comment: Unab le to assay due to interference from hemolysis. Suggest reorder as clinically indicated. Performed By: #### 2 4323-01, 1987-10 ####LERNER LABORATORYCLIA [id number] [place] [id number] [place] Bilirubin [Mass/Vol] 0.6 mg/dL Normal 0.2-1.3 [facility] [place] Comment on above: Order Comment: Speci men Type: BLOOD SPECIMENOrdering Facility: [facility] Address: [address] [place] [address] Performed By: #### 2 4323-01, 1987-10 ####LERNER LABORATORYCLIA [id number] [place] [address] [place] Calcium [Mass/Vol] 9.6 mg/dL Normal 8.5-10.[address] [facility] Comment on above: Order Comment: Speci men Type: BLOOD SPECIMENOrdering Facility: [facility] Address: [address] [place] [id number] Performed By: #### 2 43208-23, 1987-10 ####LERNER LABORATORYCLIA [id number] [place] [address] [place] Chloride [Moles/Vol] 94 mmol/L Low 98-107 [facility] [place] Comment on above: Order Comment: Speci men Type: BLOOD SPECIMENOrdering Facility: [facility] Address: [address] [place] [address] Performed By: #### 2 4328, 1987-10 ####LERNER LABORATORYCLIA [id number] [place] [id number] [place] CO2 [Moles/Vol] 20 mmol/L Low 22-[address] [facility] Comment on above: Order Comment: Speci men Type: BLOOD SPECIMENOrdering Facility: [facility] Address: [address] [place], [place] [address] Performed By: #### 2 4328, 1987-10 ####LERNER LABORATORYCLIA [id number] [place] [id number] [place] Creatinine [Mass/Vol] 0.76 mg/dL Normal 0.73-1.22 [facility] Comment on above: Order Comment: Speci men Type: BLOOD SPECIMENOrdering Facility: [facility] Address: [address] [place] [address] Performed By: #### 2 43238, 1987-10 ####LERNER LABORATORYCLIA [id number] [place] [id number] [place] Creatinine and Glomerular filtration rate.predicted panel (S/P/Bld) 99 mL/min/1.73m??? Normal >=[address] [facility] Comment on above: Order Comment: Speci men Type: BLOOD SPECIMENOrdering Facility: [facility] Address: [address] [place] [address] Result Comment: Sachi mated Glomerular Filtration Rate (eGFR) is calculated using the 2020 CKD-EPI creatinine equation. This equation utilizes serum creatinine, sex, and age as parameters. The creatinine assay has traceable calibration to isotope dilution-mass spectrometry. Refer to KDIGO guidelines for clinical interpretation. In patients with unstable renal function, e.g. those with acute kidney injury, the eGFR may not accurately reflect actual GFR. Performed By: #### 2 43208-23, 1987-10 ####LATONIA LABORATORYCLIA [id number] [place] [address] [place] Glucose [Mass/Vol] 90 mg/dL Normal 74-[address] [facility] Comment on above: Order Comment: Raudel carrillo Type: BLOOD SPECIMENOrdering Facility: [facility] Address: [address] [place] [address] Result Comment: The [place] [employer] (ADA) provides guidance for cutoff values for fasting glucose and random glucose. The ADA defines fasting as no caloric intake for at least 8 hours. Fasting plasma glucose results between 100 to 125 mg/dL indicate increased risk for diabetes (prediabetes).Fasting plasma glucose results greater than or equal to 126 mg/dL meet the criteria for diagnosis of diabetes. In the absence of unequivocal hyperglycemia, results should be confirmed by repeat testing. In a patient with classic symptoms of hyperglycemia or hyperglycemic crisis, random plasma glucose results greater than or equal to 200 mg/dL meet the criteria for diagnosis of diabetes.Reference: Standards of Medical Care in Diabetes 2016, [place] [employer]. Diabetes Care. 2016.39(Suppl 1). Performed By: #### 2 4323-01, 1987-10 ####LATONIA LABORATORYCLIA [id number] [place] [id number] [place] Potassium [Moles/Vol] 4.3 mmol/L Normal 3.7-5.1 [facility] Comment on above: Order Comment: Raudel [facility] Type: BLOOD SPECIMENOrdering Facility: [facility] Address: [address] [place] [id number] Performed By: #### 2 4323-01, 1987-10 ####LERNER LABORATORYCLIA [id number] [place] [address] [place] Protein [Mass/Vol] 8.0 g/dL Normal 6.3-8.[address] [facility] Comment on above: Order Comment: Speci men Type: BLOOD SPECIMENOrdering Facility: [facility] Address: [address] [place] [address] Performed By: #### 2 43238, 1987-10 ####LERNER LABORATORYCLIA [id number] [address] Sodium [Moles/Vol] 135 mmol/L Low 136-[address] [facility] Comment on above: Order Comment: Speci men Type: BLOOD SPECIMENOrdering Facility: [facility] Address: [address] [place] [address] Performed By: #### 2 43238, 1987-10 ####LERNER LABORATORYCLIA [id number] [address] [place] Urea nitrogen [Mass/Vol] 9 mg/dL Normal 9-[address] [facility] Comment on above: Order Comment: Speci men Type: BLOOD SPECIMENOrdering Facility: [facility] Address: [address] [place] [address] Performed By: #### 2 43238, 1987-10 ####LERNER LABORATORYCLIA [id number] [address] [place] ED NOTEon 05-23-2024 ED NOTE HNO ID: [id number] Author: GLENROY SNYDER RN Service: ? Author Type: Registered Nurse Type: ED Notes Filed: 05/23/2024 20:49 Note Text: [facility] HNO ID: [id number] Author: ERASMO GARVEY RN Service: ? Author Type: Registered Nurse Type: ED Notes Filed: 05/23/2024 16:41 Note Text: Bed: ED-02 Expected date: Expected time: Means of arrival: [place] [facility] Comments: [facility] ED PROV NOTEon 05-23-2024 ED PROV NOTE Normal [facility] HISTORY PHYSICALon HISTORY PHYSICAL Normal [facility] PT panel Coag (PPP)on 2023 INR Coag (PPP) [Relative time] 1.1 {INR} Normal 0.9-1.[address] [facility] Comment on above: Order Comment: Speci men Type: BLOOD SPECIMENOrdering Facility: [facility] Address: [address] [place] [address] Result Comment: Ania min K Antagonist (VKA) Therapeutic Range: INR 2 to 3 (Target INR of 2.5)Note: For patients treated with VKA drugs, such as warfarin, the [place] [employer] 2012 Guideline recommends a therapeutic INR range of 2 to 3 (target INR of 2.5). This recommendation includes high-risk patients with antiphospholipid syndrome with previous arterial or venous thromboembolism, current-generation mechanical or bioprosthetic aortic heart valve replacement.Note: Patients with mechanical aortic valve replacement and additional risk factors for thromboembolic events (atrial fibrillation, previous thromboembolism, LV dysfunction, hypercoagulable conditions) or an older generation mechanical AVR (i.e., ball in-Cage) or any mechanical MVR should have a INR therapeutic range of 2.5 to 3.5 (target INR of 3).Wesley GH, et al. Chest 2012, 141:7S-47SNishshelly RA, et al. [facility] 2017, 70: 252-289 Performed By: #### 3 4528-0 ####LERNER LABORATORYCLIA [id number] [address] [place] PT Coag (PPP) [Time] 12.2 s Normal 9.7-13.0 [facility] Comment on above: Order Comment: Raudel carrillo Type: BLOOD SPECIMENOrdering Facility: [facility] Address: [address] [place] [address] Performed By: #### 3 4528-0 ####LERNER LABORATORYCLIA [id number] [address] SEPSIS LACTATE W/ REFLEX (IN ITIAL)on 05-23-2024 Lactate [Moles/Vol] 2.1 mmol/L High 0.5-2.0 [facility] Comment on above: Order Comment: Raudel carrillo Type: BLOOD SPECIMENOrdering Facility: [facility] Address: [address] [place], [place] [id number] Performed By: #### S LACTR ####LERNER LABORATORYCLIA [id number] [address] SEPSIS LACTATE W/ REFLEX (SE COND)on 05-23-2024 Lactate [Moles/Vol] 1.6 mmol/L Normal 0.5-2.0 [facility] Comment on above: Order Comment: Speci men Type: BLOOD SPECIMENOrdering Facility: [facility] Address: [address] [place] [address] Performed By: #### S LACT2 ####LATONIA LABORATORYCLIA [id number] [place] [address] [place] XR FOOT 3V AP/LAT/OBL LTon 1 07-24-2023 XR FOOT 3V AP/LAT/OBL LT Normal [facility] Emergency Department Summary on 05-02-2024 Emergency Department Summary [facility] Medical Records Department [address] [place] [address] Emergency Department Summary 05/02/24 MR#: [id number] Acct: [id number] Name: MITUL OAKES Rep #: [id number] : 1955 68 From: Giuliano Cisneros MD PCP: [facility] Status:DEP ER Location: ED HPI History of Present Illness Chief Complaint: Laceration Narrative Narrative: Patient presenting today with a laceration to the base of the left first toe along the plantar aspect. He reports that he was on his power wheelchair when he coughed and accidentally hit the control causing the wheelchair to go forward and causing his foot to get stuck under the dresser causing the laceration. He reports that his tetanus is up-to-date. 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 [facility] Medical History Pulmonary embolus Coronary artery disease Hyperlipidemia Hypertension Home Medications ???Medication ???Instructions ???Recorded ???Last Taken ???Type albuterol sulfate 90 mcg/actuation 2 puff inhalation Q4H PRN PRN SOB, 10/26/14 Unknown Rx aerosol inhaler (Ventolin HFA) wheezing ##3 aspirin 81 mg chewable tablet 81 mg PO DAILY@0800 ##90 10/26/14 Unknown Rx atorvastatin 40 mg tablet 40 mg PO QHS ##90 10/26/14 Unknown Rx carvedilol 3.125 mg tablet 3.125 mg PO BID ##90 10/26/14 Unknown Rx apixaban 5 mg (74 tabs) tablets in 5 mg PO BID #74 tabs 12/20/21 Unknown Rx a dose pack (Eliquis DVT-PE Treat 30D Start) pregabalin 200 mg capsule (Lyrica) 200 mg PO TID #90 caps 12/19/23 Unknown Rx aspirin 81 mg tablet,delayed 81 mg PO DAILY 05/02/24 Unknown History release atorvastatin 80 mg tablet 80 mg PO DAILY 05/02/24 Unknown History budesonide 160 mcg-glycopyr 9 inh inhalation 05/02/24 Unknown History mcg-formot 4.8 mcg/actuation HFA inhaler (Breztri Aerosphere) buspirone 30 mg tablet 30 mg PO BID 05/02/24 Unknown History cephalexin 500 mg capsule 500 mg PO Q8H 7 days #21 caps 05/02/24 Unknown Rx diclofenac sodium 1 % topical gel 1 ea topical 4X/DAY 05/02/24 Unknown History duloxetine 30 mg capsule,delayed 30 mg PO DAILY 05/02/24 Unknown History release ergocalciferol (vitamin D2) 1,250 PO 05/02/24 Unknown History mcg (50,000 unit) capsule (Vitamin D2) gemfibrozil 600 mg tablet 600 mg PO BID 05/02/24 Unknown History insulin glargine-yfgn 100 unit/mL unit subcut 05/02/24 Unknown History (3 mL) subcutaneous pen isosorbide mononitrate 30 mg 30 mg PO DAILY 05/02/24 Unknown History tablet,extended release 24 hr melatonin 5 mg tablet PO 05/02/24 Unknown History oxycodone 5 mg tablet PO 05/02/24 Unknown History semaglutide 2 mg/dose (8 mg/3 mL) mg subcut 05/02/24 Unknown History subcutaneous pen injector (Ozempic) sennosides 8.6 mg-docusate sodium 1 tab PO DAILY 05/02/24 Unknown History 50 mg tablet (Senexon-S) spironolactone 25 mg tablet 25 mg PO BID 05/02/24 Unknown History torsemide 20 mg tablet 20 mg PO DAILY 05/02/24 Unknown History Allergy/AdvReac Type Severity Reaction Status Date / Time heparin Allergy PT UNSURE Verified 05/02/24 13:46 OF REACTION nortriptyline Allergy PT UNSURE Verified 05/02/24 13:46 OF REACTION rivaroxaban Allergy PT UNSURE Verified 05/02/24 13:46 OF REACTION Surgical History S/P PTCA (percutaneous transluminal coronary angioplasty) Social History Smoking Status: Current every day smoker tobacco type: cigarettes ROS ROS ED Constitutional Constitutional ED: Denies chills or fever(s) Cardiovascular Cardiovascular: Denies chest pain Respiratory/Chest Respiratory/Chest: Denies dyspnea Musculoskeletal Musculoskeletal: Denies arthralgias or myalgias Integumentary Reports other Details: Laceration Neurologic Neurologic: Denies weakness EXAM Physical Exam Const Vital Signs: 05/02/24 13:43 05/02/24 15:57 Temperature 98.5 F 97.2 F L Temperature Source Oral Pulse Rate 80 85 Respiratory Rate 13 14 Blood Pressure 160/109 H 137/99 H Blood Pressure Mean 126 111 Pulse Ox 96 95 Oxygen Delivery Method Room Air Positive well nourished, well developed and no apparent distress General Appearance ED: well developed HEENT Reports normocephalic and head/scalp atraumatic Mouth ED: Yes moist mucous membranes normal Eyes PERRL and EOMs intact bilaterally Neck full ROM and supple Chest Wall inspection of chest normal Resp normal respiratory effort and clear to auscultation bilaterally Cardio regular rate and regular rhythm Back/Spine normal ROM and normal to inspection Extremity full ROM Extremity Narrative: 5 cm linear full-thickness laceration to t (more content not included)... Normal [facility] Toe(s) Min 2 Viewson 024 Toe(s) Min 2 Views [facility] Imaging Services [address] [place] [address] Toe(s) Min 2 Views MR#: [id number] Acct: [id number] Name: MITUL OAKES Rep #: [id number] : 1955 M 68 From: Faye ag MD PCP: [facility] Status: REG ER Study: Toe(s) Min 2 Views Date of Exam: 05/02/24 Exam# [id number] Ordering Dr: Mildred Ferrari [id number] HISTORY: laceration 1st toe. TECHNIQUE: XR Toes Min 2 Views. COMPARISON: None. FINDINGS: BONES : Cortical destruction and fragmentation in the distal phalanx of the first toe. No other acute osseous abnormality identified. JOINTS: No dislocation. SOFT TISSUES: Soft tissue injury of the first toe with laceration and edema no radiopaque foreign body identified. RAD/Toe(s) Min 2 Views IMPRESSION: Soft tissue injury of the left first toe with fracture or infection of the first distal phalanx. Electronically Signed: Faye Acosta MD at 14:57 EST , CC: [place] [place]; [facility] Entry Level Recruiter: Signed Normal [facility] Absolute lymphocyte countOrd ered By: Christopher Fontaine on 11-19-2022 Lymphocytes Auto (Unsp spec) [#/Vol] 2.41 10*3/uL 0.83-4.51 [facility] Basophil percentageOrdered B y: Christopher Fontaine on 11-19-2022 Basophils/100 WBC (Bld) 1.0 % 0-1 [facility] Chloride [Moles/Vol] 107 mmol/L 98-107 [facility] Eosinophils/100 WBC (Bld) 2.0 % 0-5 [facility] Glucose [Mass/Vol] 223 mg/dL 74-106 [facility] Comment on above: Glucose result great er than or equal to 200 mg/dLsuggests DIABETES MELLITUS per A.D.A. criteria. Lactate [Moles/Vol] 2.3 mmol/L 0.4-2.0 [facility] Comment on above: Critical Result(s) C alled at: 06:09:49 11/19/2022 by: Joellen Cole. Results read back by same. Neutrophils (Bld) [#/Vol] 5.4 10*3/uL 2.0-7.7 [facility] Neutrophils/100 WBC (Bld) 59.0 % 47-70 [facility] Potassium [Moles/Vol] 3.9 mmol/L 3.5-5.1 [facility] Sodium [Moles/Vol] 136 mmol/L 136-145 [facility] WBC (Bld) [#/Vol] 9.2 10*3/uL 4.4-11.0 [facility] Blood erythrocytes count (nu mber/volume)Ordered By: Christopher Fontaine on 11-19-2022 RBC (Bld) [#/Vol] 5.15 10*6/uL 4.6-6.2 [facility] Blood hemoglobin measurement (mass/volume)Ordered By: Christopher Fontaine on 11-19-2022 Hemoglobin (Bld) [Mass/Vol] 14.9 g/dL 13.0-16.5 [facility] Blood lymphocytes/100 leukoc ytesOrdered By: Christopher Fontaine on 11-19-2022 Lymphocytes/100 WBC (Bld) 26.2 % 19-41 [facility] Blood monocytes/100 leukocyt esOrdered By: Christopher Fontaine on 11-19-2022 Monocytes/100 WBC (Bld) 11.3 % 0-10 [facility] Blood platelet mean volumeOr dered By: Christopher Fontaine on 11-19-2022 Platelet mean volume (Bld) [Entitic vol] 9.9 fL 6.2-12.0 [facility] Determination of erythrocyte mean corpuscular volume (MCV)Ordered By: Christopher Fontaine on 11-19-2022 MCV (RBC) [Entitic vol] 90.3 fL 80-94 [facility] Hematocrit Auto (Bld) [Volum e fraction]Ordered By: Christopher Fontaine on 11-19-2022 Hematocrit (Bld) [Volume fraction] 46.5 % 40-54 [facility] INR in Blood by Coagulation assayOrdered By: Christopher Fontaine on 11-19-2022 INR Coag (Bld) [Relative time] 1.5 {INR} [facility] Laboratory - Chemistry and C hemistry - challengeOrdered By: Christopher Fontaine on 11-19-2022 CO2 [Moles/Vol] 23.0 mmol/L 21.0-32.0 [facility] Urea nitrogen/Creatinine [Mass ratio] 24.8 mg/mg 10-20 [facility] Laboratory - CoagulationOrde red By: Christopher Fontaine on 11-19-2022 aPTT Coag (Bld) [Time] 27.7 s 24.1-36.2 [facility] PT Coag (PPP) [Time] 17.7 s 11.7-14.9 [facility] - Hematology and Cell countsOrdered By: Christopher Fontaine on 11-19-2022 Erythrocyte distribution width (RBC) [Entitic vol] 48.6 fL 35.1-43.9 [facility] Erythrocyte distribution width (RBC) [Ratio] 14.6 % 11.6-14.6 [facility] Immature granulocytes/100 WBC (Bld) 0.500 % 0.0-0.9 [facility] Comment on above: IG% - Immature Granu locytes (promyelocytes, myelocytes and metamyelocytes) > 1% indicates that a LEFT SHIFT is Present. MCH (RBC) [Entitic mass] 28.9 pg 27.0-32.0 [facility] Nucleated RBC/100 WBC (Bld) [Ratio] 0 % 0-5 [facility] MCHC Auto (RBC) [Mass/Vol]Or dered By: Christopher Fontaine on 11-19-2022 MCHC (RBC) [Mass/Vol] 32.0 g/dL 32-36 [facility] No Panel InformationOrdered By: Christopher Fontaine on 11-19-2022 Estimated Creatinine Clearance Calc 95.55 ml/min [facility] Estimated GFR (MDRD) Amer 123 mL/min >60 [facility] Comment on above: GFR Calc Estimated GFR (MDRD) Non-Af Amer 102 mL/min >60 [facility] Comment on above: Non- GFR Calc Platelets bldOrdered By: Abe Fontaine on 11-19-2022 Platelets (Bld) [#/Vol] 238 10*3/uL 150-450 [facility] Serum or plasma calcium wandy urement (mass/volume)Ordered By: Christopher Fontaine on 11-19-2022 Calcium [Mass/Vol] 9.0 mg/dL 8.5-10.1 [facility] Serum or plasma creatinine m easurement (mass/volume)Ordered By: Christopher Fontaine on 11-19-2022 Creatinine [Mass/Vol] 0.81 mg/dL 0.70-1.30 [facility] Comment on above: The validity of the calculated GFR & GFRAA in patients over 70 years has not been determined. Clinical correlation is essential. Serum or plasma urea nitroge n measurement (mass/volume)Ordered By: Christopher Fontaine on 11-19-2022 Urea nitrogen [Mass/Vol] 20 mg/dL 7-18 [facility] Thin prep Papanicolaou smear with manual screeningOrdered By: Christopher Fontaine on 11-19-2022 Thin prep Papanicolaou smear with manual screening 6 5-15 [facility] Vital Signs Date Time Vital Sign Value Performing Clinician Facility 10-14-2024 12:51-0400 Body temperature 97.2 [degF] Jeanne Whitehead MD Work Phone: [facility] 10-14-2024 12:51-0400 Diastolic blood pressure 70 mm[Hg] Jeanne Whitehead MD Work Phone: [facility] 10-14-2024 12:51-0400 Heart rate 69 /min Jeanne Whitehead MD Work Phone: [facility] 10-14-2024 12:51-0400 SaO2% (BldA) [Mass fraction] 95 % Jeanne Whiteheda MD Work Phone: [facility] 10-14-2024 12:51-0400 Systolic blood pressure 109 mm[Hg] Jeanne Whitehead MD Work Phone: [facility] 09-16-2024 14:01-0400 Body temperature 96.49 [degF] Jeanne Whitehead MD Work Phone: [facility] 09-16-2024 14:01-0400 Diastolic blood pressure 78 mm[Hg] Jeanne Whitehead MD Work Phone: [facility] 09-16-2024 14:01-0400 Heart rate 65 /min Jeanne Whitehead MD Work Phone: [facility] 09-16-2024 14:01-0400 SaO2% (BldA) [Mass fraction] 95 % Jeanne Whitehead MD Work Phone: [facility] 09-16-2024 14:01-0400 Systolic blood pressure 121 mm[Hg] Jeanne Whitehead MD Work Phone: [facility] 07-25-2024 11:38-0500 Diastolic blood pressure 76 mm[Hg] Dari Esparza DO Work Phone: [facility] 07-25-2024 11:38-0500 Heart rate 65 /min Dari Esparza DO Work Phone: [facility] 07-25-2024 11:38-0500 SaO2% (BldA) [Mass fraction] 96 % Dari Esparza DO Work Phone: [facility] 07-25-2024 11:38-0500 Systolic blood pressure 132 mm[Hg] Dari Esparza DO Work Phone: [facility] 07-15-2024 14:11-0500 Body temperature 96.91 [degF] Jeanne Whitehead MD Work Phone: [facility] 07-15-2024 14:11-0500 Diastolic blood pressure 84 mm[Hg] Jeanne Whitehead MD Work Phone: [facility] 07-15-2024 14:11-0500 Heart rate 64 /min Jeanne Whitehead MD Work Phone: [facility] 07-15-2024 14:11-0500 Respiratory rate 20 /min Jeanne Whitehead MD Work Phone: [facility] 07-15-2024 14:11-0500 SaO2% (BldA) [Mass fraction] 95 % Jeanne Whitehead MD Work Phone: [facility] 07-15-2024 14:11-0500 Systolic blood pressure 134 mm[Hg] Jeanne Whitehead MD Work Phone: [facility] 07-10-2024 15:07-0500 Body temperature 96.8 [degF] Brandon Rubin DPM Work Phone: [facility] 07-10-2024 15:07-0500 Diastolic blood pressure 90 mm[Hg] Brandon Rubin DPM Work Phone: [facility] 07-10-2024 15:07-0500 Heart rate 70 /min Brandon Rubin DPM Work Phone: [facility] 07-10-2024 15:07-0500 SaO2% (BldA) [Mass fraction] 97 % Brandon Rubin DPM Work Phone: [facility] 07-10-2024 15:07-0500 Systolic blood pressure 191 mm[Hg] Brandon Rubin DPM Work Phone: [facility] 11-19-2022 06:56-0400 Diastolic blood pressure 70 mm[Hg] [facility] 11-19-2022 06:56-0400 Heart rate 74 /min [facility] 11-19-2022 06:56-0400 Respiratory rate 20 /min [facility] 11-19-2022 06:56-0400 SaO2% (BldA) [Mass fraction] 99 % [facility] 11-19-2022 06:56-0400 Systolic blood pressure 142 mm[Hg] [facility] 11-19-2022 05:03-0400 Body height 180.34 cm [facility] 11-19-2022 05:03-0400 Body mass index (BMI) [Ratio] 35.7 kg/m2 [facility] 11-19-2022 05:03-0400 Body temperature 95.4 [degF] [facility] 11-19-2022 05:03-0400 Body weight 116.2 kg [facility] 12-20-2021 12:13-0400 Respiratory rate 18 /min [facility] Work Phone: 12-20-2021 10:58-0400 Body height 180.34 cm [facility] Work Phone: 12-20-2021 10:58-0400 Body mass index (BMI) [Ratio] 36.9 kg/m2 [facility] Work Phone: 12-20-2021 10:58-0400 Body temperature 96.2 [degF] [facility] Work Phone: 12-20-2021 10:58-0400 Body weight 120.2 kg [facility] Work Phone: 12-20-2021 10:58-0400 Diastolic blood pressure 96 mm[Hg] [facility] Work Phone: 12-20-2021 10:58-0400 Heart rate 83 /min [facility] Work Phone: 12-20-2021 10:58-0400 SaO2% (BldA) [Mass fraction] 99 % [facility] Work Phone: 12-20-2021 10:58-0400 Systolic blood pressure 139 mm[Hg] [facility] Work Phone: Encounters Encounter Date Encounter Type Care Provider Facility Start: 01-28-2025 [facility] Facility:[facility] Start: 01-05-2025 [facility] Facility:[facility] Start: 12-22-2024 [facility] Facility:[facility] Start: 12-15-2024 [facility] Start: 12-10-2024 [facility] Facility:[facility] Start: 12-03-2024 End: 12-08-2024 Evaluation and management of inpatient SARAH VEGA Facility:[facility] Start: 12-03-2024 [facility] Facility:[facility] Start: 12-01-2024 ambulatory Melo RHOADES Facil ity:[facility] Start: 11-27-2024 ambulatory Melo RHOADES Facil ity:[facility] Start: 11-26-2024 [facility] Facility:[facility] Start: 11-24-2024 [facility] Facility:[facility] Start: 10-27-2024 End: 10-27-2024 [facility] Work Phone: Start: 10-27-2024 End: 10-27-2024 Departed Referred Melo Barrios - [address] Start: 10-27-2024 Registered Referred Melo Barrios - [address] Start: 10-27-2024 End: 10-27-2024 [facility] Facility:[facility] Start: 10-20-2024 End: 10-20-2024 [facility] Work Phone: Start: 10-20-2024 End: 10-20-2024 Departed Referred Melo Barrios - [address] Start: 10-20-2024 Registered Referred Melo Barrios - [address] Start: 10-20-2024 End: 10-20-2024 [facility] Facility:[facility] Start: 10-14-2024 End: 10-14-2024 Patient encounter procedure Jeanne Whitehead MD Work Phone: Plastic Surgery Comment on above: Cellulitis of toe of left foot (Primary Dx); Ulcer of toe of left foot, limited to breakdown of skin (HCC); Open toe wound, initial encounter; Type 2 diabetes mellitus with stage 1 chronic kidney disease, without long-term current use of insulin (HCC); PAD (peripheral artery disease); Chronic obstructive pulmonary disease with acute lower respiratory infection (HCC); Osteomyelitis of great toe of left foot (HCC); ALFIE (acute kidney injury) Start: 10-14-2024 End: 10-14-2024 ambulatory JEANNE WHITEHEAD Facility:[facility] Start: 10-13-2024 End: 10-13-2024 [facility] Work Phone: Start: 10-13-2024 End: 10-13-2024 Departed Referred Melo Barrios - [address] Start: 10-13-2024 Registered Referred Melo Barrios - [address] Start: 10-13-2024 End: 10-13-2024 [facility] Facility:[facility] Start: 10-06-2024 End: 10-06-2024 ambulatory [facility] Work Phone: Start: 10-06-2024 End: 10-06-2024 Departed Referred Melo Barrios - [address] Start: 10-06-2024 Registered Referred Melo Barrios - [address] Start: 10-06-2024 End: 10-06-2024 [facility] Facility:[facility] Start: 2024 End: 2024 [facility] Work Phone: Start: 2024 End: 2024 Departed Referred Melo Barrios - [address] Start: 2024 Registered Referred Melo Barrios - [address] Start: 2024 End: 2024 [facility] Facility:[facility] Start: 09-24-2024 End: 10-14-2024 Telephone encounter Jeanne Whitehead MD Work Phone: [facility] Comment on above: [employer] (FO R [employer] USE ONLY) Start: 09-23-2024 End: 09-23-2024 Telephone encounter Jeanne Whitehead MD Work Phone: [facility] Comment on above: Results Start: 09-23-2024 End: 09-23-2024 [facility] Work Phone: Start: 09-23-2024 End: 09-23-2024 Departed Referred Melo Barrios - [address] Start: 09-23-2024 End: 09-23-2024 [facility] Facility:[facility] Start: 09-16-2024 End: 09-16-2024 Patient encounter procedure Jeanne Whitehead MD Work Phone: Plastic Surgery Comment on above: Cellulitis of toe of left foot (Primary Dx); Ulcer of toe of left foot, limited to breakdown of skin (HCC); Open toe wound, initial encounter; Type 2 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 Start: 08-04-2024 [facility] Facility:[facility] Start: 08-04-2024 Registered Referred Melo Shepardruss HumphreyGarrison mark [facility]rios - [address] Start: 07-29-2024 [facility] Facility:[facility] Start: 07-29-2024 Registered Referred Melo Shepardruss HumphreyGarrison mark Barrios - [address] Start: 07-25-2024 End: 07-25-2024 ambulatory DARI ESPARZA Facility:[facility] Start: 07-25-2024 End: 07-25-2024 Patient encounter procedure Dari Esparza DO Work Phone: Vascular Surgery Comment on above: PAD (peripheral pablo ry disease) (HCC) (Primary Dx) Start: 07-21-2024 [facility] Facility:[facility] Start: 07-21-2024 Registered Referred Melo Shepardruss Barrios - [address] Start: 07-15-2024 End: 07-15-2024 Patient encounter procedure Jeanne Whitehead MD Work Phone: Plastic Surgery Comment on above: Ulcer of toe of left foot, limited to breakdown of skin (HCC) (Primary Dx); Osteomyelitis of great toe of left foot (HCC); Open toe wound, initial encounter; Type 2 diabetes mellitus with stage 1 chronic kidney disease, without long-term current use of insulin (HCC) (HCC); ALFIE (acute kidney injury) (HCC); PAD (peripheral artery disease) (HCC); Chronic obstructive pulmonary disease with acute lower respiratory infection (HCC) Start: 07-15-2024 End: 07-15-2024 ambulatory MARSHA BECK Facility:[facility] [place] Start: 07-15-2024 Registered Referred Melo Madison MilagroGarrison mark Barrios - [address] Start: 07-14-2024 [facility] Facility:[facility] Start: 07-14-2024 Registered Referred Melo Shepardruss HumphreyGarrison mark Barrios - [address] Start: 07-11-2024 End: 07-11-2024 Telephone encounter Brandon Rubin DPM Work Phone: Plastic Surgery Comment on above: Patient Update Start: 07-11-2024 [facility] Facility:[facility] Start: 07-11-2024 Registered Referred Melo Carlosworth - [address] Start: 07-10-2024 End: 07-10-2024 Patient encounter procedure Brandon Scottie AUSTIN Work Phone: Plastic Surgery Comment on above: Ulcer of toe of left foot, limited to breakdown of skin (HCC) (Primary Dx) Start: 07-10-2024 End: 07-10-2024 ambulatory UNKNOWN PROVIDER Facility:[facility] Start: 07-07-2024 [facility] Start: 07-07-2024 Registered Referred Melo Carlosworth - [address] Start: 07-02-2024 End: 07-02-2024 Emergency department patient visit LONNY WILDER Facility:[facility] Start: 06-27-2024 [facility] Facility:[facility] Start: 06-27-2024 Registered Referred Melo Carlosworth - [address] Start: 06-26-2024 [facility] Start: 06-26-2024 Registered Referred Melo Carlosworth - [address] Start: 06-25-2024 [facility] Start: 06-24-2024 End: 06-24-2024 ambulatory JEANNE WHITEHEAD Facility:[facility] Start: 06-24-2024 End: 06-24-2024 Patient encounter procedure Jeanne Whitehead MD Work Phone: Plastic Surgery Comment on above: Ulcer of toe of left foot, limited to breakdown of skin (HCC) (Primary Dx); Osteomyelitis of great toe of left foot (HCC); Open toe wound, initial encounter; Type 2 diabetes mellitus with stage 1 chronic kidney disease, without long-term current use of insulin (HCC) (HCC); ALFIE (acute kidney injury) (HCC); Chronic obstructive pulmonary disease with acute lower respiratory infection (HCC); PAD (peripheral artery disease) (HCC) Start: 06-23-2024 ambulatory [facility] Facility:[facility] Start: 06-19-2024 End: 06-19-2024 ambulatory UNKNOWN PROVIDER Facility:[facility] Start: 06-17-2024 ambulatory [facility] Facility:[facility] Start: 06-16-2024 ambulatory Melo Pulido ity:[facility] Start: 06-03-2024 End: 06-03-2024 Orders Only Marsha Lucas DO Work Phone: [place] PROVIDER ADULT Comment on above: PAD (peripheral pablo ry disease) (HCC) (Primary Dx) Start: 06-02-2024 End: 06-26-2024 Telephone encounter Jeanne Whitehead MD Work Phone: [facility] Comment on above: COPAT MANAGEMENT FOR IDC USE ONLY (COPAT MANAGEMENT FOR IDC USE ONLY) Start: 06-02-2024 End: 06-03-2024 Evaluation and management of inpatient MARSHA LUCAS Facility:[facility] Start: 05-30-2024 End: 05-30-2024 ambulatory Jeanne Whitehead MD Work Phone: [place] Provider Adult Comment on above: [facility] Start Start: 05-30-2024 End: 05-30-2024 Telephone encounter Marsha Lucas DO Work Phone: [facility] Comment on above: Orders Start: 05-26-2024 End: 05-26-2024 Orders Only Marsha Lucas DO Work Phone: Vascular Surgery Comment on above: PAD (peripheral pablo ry disease) (HCC) (Primary Dx) Start: 05-23-2024 End: 06-06-2024 Evaluation and management of inpatient LONNY WILDER Facility:[facility] Start: 05-06-2024 End: 05-06-2024 ambulatory Paris Salas NP Facility:[facility] Start: 05-02-2024 End: 05-02-2024 Emergency department patient visit [facility] Facility:[facility] Start: 05-02-2024 End: 05-02-2024 ambulatory [facility] Facility:[facility] Start: 04-30-2024 End: 04-30-2024 [facility] Start: 04-22-2024 End: 04-22-2024 ambulatory Efewongbe Oleghe Facility:[facility] Start: 04-10-2024 End: 04-10-2024 ambulatory [facility] Facility:[facility] Start: 04-04-2024 End: 04-04-2024 ambulatory Efewongbe Oleghe OLS Facility:[facility] Start: 03-26-2024 End: 03-26-2024 ambulatory Paris Salas NP Facility:[facility] Start: 03-21-2024 ambulatory Efewongbe Oleghe OLS Fa cility:[facility] Start: 03-20-2024 End: 03-20-2024 ambulatory Efewongbe Oleghe OLS Facility:[facility] Start: 03-14-2024 ambulatory Efewongbe Oleghe OLS Fa cility:[facility] Start: 03-10-2024 End: 03-10-2024 ambulatory Efewongbe Oleghe OLS Facility:[facility] Start: 03-07-2024 End: 03-07-2024 ambulatory Efewongbe Oleghe OLS Facility:[facility] Start: 02-29-2024 End: 02-29-2024 ambulatory Efewongbe Oleghe OLS Facility:[facility] Start: 02-26-2024 End: 02-26-2024 ambulatory [facility] Start: 02-22-2024 ambulatory Efewongbe Oleghe OLS Fa cility:[facility] Start: 02-15-2024 ambulatory Efewongbe Oleghe OLS Fa cility:[facility] Start: 02-08-2024 ambulatory Efewongbe Oleghe Facili ty:[facility] Start: 02-07-2024 ambulatory Efewongbe Oleghe OLS Fa cility:[facility] Start: 11-19-2022 End: 11-19-2022 Emergency department patient visit [facility] Start: 12-20-2021 End: 12-20-2021 Emergency department patient visit [facility] Procedures Date Procedure Procedure Detail Performing Clinician Start: 09-16-2024 Cul bact xcpt urine blood/stool aerobic isol Jeanne Whitehead MD Work Phone: Start: 08-04-2024 Measurement of renal function [facility] Comment on above: GFR Calc Start: 07-29-2024 Measurement of renal function [facility] Comment on above: GFR Calc Start: 07-21-2024 Measurement of C-jaimee ctive protein using high sensitivity technique [facility] Comment on above: C-Reactive Protein ( CRP) provides useful information for thediagnosis, therapy and monitoring of inflammatory processesand associated diseases. For the evaluation of Relative Riskfor Cardiovascular Disease, a High Sensitivity CRP (HSCRP)should be ordered. Start: 07-21-2024 Measurement of renal function [facility] Comment on above: GFR Calc Start: 07-14-2024 Measurement of renal function [facility] Comment on above: GFR Calc Start: 07-11-2024 Measurement of renal function [facility] Comment on above: GFR Calc Start: 07-07-2024 Measurement of renal function [facility] Comment on above: GFR Calc Start: 06-27-2024 Measurement of renal function [facility] Comment on above: GFR Calc Start: 06-26-2024 Measurement of renal function [facility] Comment on above: GFR Calc Start: 06-21-2015 Mechelle Lucas DO Work Phone: Plan of Treatment Date Care Activity Detail Author Start: 07-29-2034 Urine microalbumin profile DTaP,Tdap,Td Vaccine (3 - Td or Tdap) [facility] Start: 10-14-2025 BP Controlled (<130/80) BP Controlle d (<130/80) [facility] Start: 09-16-2025 BP Controlled (<130/80) BP Controlle d (<130/80) [facility] Start: 07-02-2025 Creatinine measurement Serum Creatin ine [facility] Start: 06-19-2025 BP Controlled (<130/80) BP Controlle d (<130/80) [facility] Start: 02-02-2025 End: 02-02-2025 Patient encounter procedure Vascular Surgery Comment on above: PVR arterial US 6 month f/u Start: 01-26-2025 Covid-19 Vaccine () Covid-19 Vaccine () [facility] Start: 10-30-2024 End: 10-30-2024 Patient encounter procedure 10/30/2024 1:00 PM EDT Office Visit Plastic Surgery [address] [place] [address] Brandon Rubin DPM [address] [place] [phone] Left 2nd toe plantar-offered sooner patient declined Plastic Surgery Comment on above: Left 2nd toe plantar -offered sooner patient declined Start: 10-14-2024 End: 10-14-2024 Patient encounter procedure 10/14/2024 1:00 PM EDT Office Visit Plastic Surgery [address] [place] [address] Jeanne Whitehead MD [address] [address] Left 2nd toe plantar Plastic Surgery Comment on above: Left 2nd toe plantar Start: 09-24-2024 End: 09-24-2024 Patient encounter procedure 09/24/2024 10:30 AM EDT Office Visit Plastic Surgery [address] [place] [address] Brandon Rubin DPM [address] [place] [address] Left 2nd toe plantar Plastic Surgery Comment on above: Left 2nd toe plantar Start: 09-09-2024 End: 09-09-2024 Patient encounter procedure 09/09/2024 1:00 PM EDT Office Visit Plastic Surgery [address] [place] [address] Jeanne Whitehead MD [address] [address] Left Lower Extremity Plastic Surgery Comment on above: Left Lower Extremity Start: 07-30-2024 End: 07-30-2024 Patient encounter procedure 07/30/2024 10:30 AM EST Office Visit Plastic Surgery [address] [place] [address] Brandon Rubin DPM [address] [place] [address] Left Lower Extremity Plastic Surgery Comment on above: Left Lower Extremity Start: 07-29-2024 End: 07-29-2024 Patient encounter procedure Vascular Surgery Comment on above: POST ANGIOGRAM FOLLO W UPWITH TESTING Start: 07-25-2024 End: 07-25-2024 Patient encounter procedure 07/25/2024 11:30 AM EST Office Visit Vascular Surgery [address] [address] Stefano Grider MD [address] [place] [address] Recent hospitalization, left great toe osteomyelitis/celluliti s status post amputation, peripheral arterial disease, diabetes Vascular Surgery Comment on above: Recent hospitalizati on, left great toe osteomyelitis/cellulitis status post amputation, peripheral arterial disease, diabetes Start: 07-15-2024 End: 07-15-2024 Patient encounter procedure 07/15/2024 2:30 PM EST Office Visit Plastic Surgery [address] [place] [address] Jeanne Whitehead MD [address] [address] Left Lower Extremity Plastic Surgery Comment on above: Left Lower Extremity Start: 07-15-2024 End: 07-15-2024 Patient encounter procedure Vascular Surgery Comment on above: POST ANGIOGRAM FOLLO W UPWITH TESTING Start: 07-04-2024 End: 06-03-2025 US Lower extremity artery US LEG ARTERIAL PERIPH UNL VAS LAB Vascular Lab Routine PAD (peripheral artery disease) (HCC) Expected: 07/04/2024 (Approximate), Expires: 06/03/2025 [facility] Work Phone: Comment on above: Expected: 07/04/2024 (Approximate), Expires: 06/03/2025 Start: 07-04-2024 End: 06-03-2025 US.doppler Extremity arteries - bilateral for physiologic artery study PVR ANK PRESS GRACIELA VAS LAB Vascular Lab Routine PAD (peripheral artery disease) (HCC) Expected: 07/04/2024 (Approximate), Expires: 06/03/2025 [facility] Comment on above: Expected: 07/04/2024 (Approximate), Expires: 06/03/2025 Start: 07-02-2024 End: 07-02-2024 Patient encounter procedure 07/02/2024 9:00 AM EST Office Visit Plastic Surgery [address] [place] [address] Brandon Rubin DPM [address] [place], [place] [id number] Left Lower Extremity Plastic Surgery Comment on above: Left Lower Extremity Start: 06-18-2024 Advance Directive Discussion Advance Directive Discussion [facility] Start: 06-05-2024 End: 06-05-2024 Amputation metatarsal w/toe single AMPUTATION TOE(S) Osteomyelitis of ankle or foot, acute, left (HCC) 06/05/2024 8:54 AM EST ME OR Start: 06-05-2024 End: 06-05-2024 Evaluation and management of inpatient 06/05/2024 8:54 AM EST - 06/05/2024 10:17 AM EST Surgery [facility] Surgery [address] [place] [address] Brandon Rubin, GEOVANNA [address] [place], [place] [id number] AMPUTATION TOE(S) [facility] Surgery Comment on above: AMPUTATION TOE(S) Start: 06-02-2024 End: 06-02-2024 Evaluation and management of inpatient 06/02/2024 2:00 PM EST - 06/02/2024 3:55 PM EST Surgery [facility] [address] [place] [address] Marsha Lucas DO [address] [place] [address] ANGIOGRAM EXTREMITY LOWER [facility] Comment on above: ANGIOGRAM EXTREMITY LOWER Start: 06-02-2024 End: 06-02-2024 Slctv cathj 2nd order abdl pel/lxtr art brnch ANGIOGRAM EXTREMITY LOWER Stenosis of superficial femoral artery (HCC) PAD (peripheral artery disease) (HCC) Osteomyelitis of great toe of left foot (HCC) 06/02/2024 2:00 PM EST [facility] Start: 06-01-2024 Evaluation and management of inpatient 06/01/2024 2:00 PM EST Hospital Encounter [facility] [address] [place] [address] Marsha Lucas DO [address] [place] [address] 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], PAD (peripheral artery disease) (HCC) [I73.9], Osteomyelitis of great toe of left foot (HCC) [M86.9] [facility] Comment on above: Stenosis of superfic ial femoral artery (HCC) [I70.209], PAD (peripheral artery disease) (HCC) [I73.9], Osteomyelitis of great toe of left foot (HCC) [M86.9] Start: 05-27-2024 End: 05-27-2024 Angiography extremity unilateral rs&i ANGIOGRAM EXTREMITY UNILATERAL RADIOLOGICAL PAD (peripheral artery disease) (HCC) 05/27/2024 3:10 PM EST ME CATH Start: 05-27-2024 End: 05-27-2024 Evaluation and management of inpatient 05/27/2024 3:10 PM EST - 05/27/2024 5:15 PM EST Surgery [facility] Invoice Classification Clerk [address] [place] [address] Marsha Lucas, [address] [place] [address] ANGIOGRAM EXTREMITY UNILATERAL RADIOLOGICAL [facility] Invoice Classification Clerk Comment on above: ANGIOGRAM EXTREMITY UNILATERAL RADIOLOGICAL Start: 05-26-2024 End: 05-26-2024 Incision & drainage leg/ankle abscess/hematoma INCISION AND DRAINAGE ABSCESS LEG OR ANKLE Osteomyelitis of left foot (HCC) 05/26/2024 8:20 AM EST ME OR Start: 05-26-2024 End: 05-26-2024 Negative pressure wound therapy dme <= 50 sq cm APPLICATION WOUND VAC EXTREMITY LOWER TOTAL WOUND SURFACE LESS THAN 50 SQ [facility] Osteomyelitis of left foot (HCC) 05/26/2024 8:20 AM EST ME OR Start: 02-17-2024 Covid-19 Vaccine ( season) Covid-19 Vaccine ( season) [facility] Start: 02-17-2024 Influenza vaccination Influenza Vacc ine (#1) [facility] Start: 06-18-2023 Advance Directive Discussion Advance Directive Discussion [facility] Start: 03-24-2023 Urine microalbumin profile DTaP,Tdap,Td Vaccine (2 - Tdap) [facility] Start: 11-19-2022 CT of abdominal aort a with contrast [facility] Start: 2016 RSV Vaccine (1 - Ris k 60-74 years 1-dose series) RSV Vaccine (1 - Risk 60-74 years 1-dose series) [facility] Start: 06-21-2016 Screening for malign ant neoplasm of colon [facility] Start: 10-03-2011 Prostate specific antigen measurement Prostate Cancer Screening Discussion [facility] Start: 2006 Screening for malign ant neoplasm of lung Lung Cancer Screening [facility] Start: 2001 Prostate specific antigen measurement Prostate Cancer Screening Discussion [facility] Start: 2001 Screening for malign ant neoplasm of colon [facility] Start: 1986 Zoledronic acid therapy Alpha- 1 Antitrypsin Deficiency Screening [facility] Start: 1974 Annual PCP Team Underwriting Service Representative marii Disease Visit Annual PCP Team Chronic Disease Visit [facility] Start: 1974 BP Controlled (<130/80) BP Controlle d (<130/80) [facility] Start: 1974 Hepatitis B surface antibody level LDL Cholesterol [facility] Start: 1974 Hepatitis C screening Hepatitis C Sc deoning [facility] Start: 1974 Spirometry Spirometry [facility] Start: 1966 Diabetic foot examination Diabetic Foot Exam [facility] Start: 1966 Glaucoma screening Dilated Retinal E xam [facility] Start: 1966 Hepatitis B screening Urine Albumin:Creatinine Ratio [facility] Start: 1961 Hemoglobin A1c measurement HbA1C [facility] Start: 1956 Abdominal aortic aneurysm screening Abdominal Aortic Aneurysm Screening [facility] Bacteria identified in Wound by Culture BACTERIAL CULTURE AND GRAM STAIN, ABSCESS AND WOUND (AEROBIC CULTURE) Microbiology Routine Cellulitis of toe of left foot 09/16/2024 2:30 PM EDT [facility] Work Phone: Patient Education ED Deep Vein T hrombosis (DVT) [facility] Work Phone: Patient referral [facility] Work Phone: End: 07-25-2025 US Lower extremity artery US LEG ARTERIAL PERIPH UNL [facility] Vascular Lab Routine PAD (peripheral artery disease) (HCC) 1 Occurrences starting 07/25/2024 until 07/25/2025 [facility] Work Phone: Comment on above: 1 Occurrences starti ng 07/25/2024 until 07/25/2025 End: 07-25-2025 US.doppler Extremity arteries - bilateral for physiologic artery study PVR ANK PRESS GRACIELA [facility] Vascular Lab Routine PAD (peripheral artery disease) (HCC) 1 Occurrences starting 07/25/2024 until 07/25/2025 [facility] Comment on above: 1 Occurrences starti ng 07/25/2024 until 07/25/2025 Immunizations Immunization Date Immunization Notes Care Provider Rober rivero 05-24-2024 pneumococcal conjuga te (PCV20) vaccine, 20 valent (PREVNAR 20) Marsha SaaSAssurance Work Phone: [facility] 04-05-2023 influenza virus vacc ine, unspecified formulation [employer] DO Work Phone: [facility] Payers Date Payer Category Payer Medicare (Managed Care) [employer] [id number] 2024 Medicaid [id number] 2024 Medicaid [id number] 2024 Medicaid [id number] 2024 Self-pay [id number] 2021 Medicare MEDICARE MEDICAR E A AND B [id number] 2021-Present [phone] [place] [address] Medicare [id number] 2021 Medicare [id number] 2021 Unknown [id number] 1998 Private Health Insurance [id number] Unknown VA AUTH REQUIR ED SEE NOTE [id number] Unknown [id number] 2.16.840.1.345143.3.579.2. 462 Unknown [id number] 2.16.840.1.374649.3.579.2. 462 Unknown [id number] 2.16.840.1.280014.3.579.2. 462 Unknown [id number] 2.16.840.1.771322.3.579.2. 462 Unknown [id number] 2.16.840.1.146838.3.579.2. 462 Unknown [id number] 2.16.840.1.969095.3.579.2. 462 Unknown [id number] 2.16.840.1.531066.3.579.2. 462 Unknown [id number] 2.16.840.1.055666.3.579.2. 462 Unknown [id number] 2.16.840.1.433349.3.579.2. 462 Unknown [id number] 2.16.840.1.491634.3.579.2. 462 Unknown [id number] 2.16.840.1.351827.3.579.2. 462 Unknown [id number] 2.16840.1.644268.3.579.2. 462 Unknown [id number] 2.840.1.124622.3.579.2. 462 Unknown [id number] 2.16840.1.233024.3.579.2. 462 Unknown [id number] 2.840.1.294010.3.579.2. 462 Unknown [id number] 2.840.1.580882.3.579.2. 462 Unknown [id number] 2.840.1.582993.3.579.2. 462 Unknown [id number] 2.840.1.613820.3.579.2. 462 Unknown [id number] 2.840.1.442577.3.579.2. 462 Unknown [id number] 2.840.1.771255.3.579.2. 462 Unknown [id number] 2.840.1.459185.3.579.2. 462 Unknown [id number] 2.840.1.802005.3.579.2. 462 Unknown [id number] 2.840.1.877313.3.579.2. 462 Unknown [id number] .840.1.079193.3.579.2. 462 Unknown [id number] 2.840.1.581047.3.579.2. 462 Unknown [id number] .840.1.334528.3.579.2. 462 Unknown [id number] 2.840.1.299953.3.579.2. 462 Unknown [id number] 2.840.1.983081.3.579.2. 462 Unknown [id number] 2.840.1.447559.3.579.2. 462 Unknown [id number] 2.16.840.1.607684.3.579.2. 462 Unknown [id number] 2.16.840.1.884731.3.579.2. 462 Unknown [id number] 2.16.840.1.784430.3.579.2. 462 Unknown [id number] 2.16.840.1.373138.3.579.2. 462 Unknown [id number] 2.16.840.1.821801.3.579.2. 462 Unknown [id number] 2.16.840.1.920858.3.579.2. 462 Unknown [id number] 2.16.840.1.775856.3.579.2. 462 Unknown [id number] 2.16.840.1.891703.3.579.2. 462 Unknown [id number] 2.16.840.1.493691.3.579.2. 462 Unknown [id number] 2.16.840.1.758899.3.579.2. 462 Unknown [id number] 2.16.840.1.445093.3.579.2. 462 Unknown [id number] 2.16840.1.701077.3.579.2. 462 Social History Date Type Detail Facility Start: 12-20-2021 End: 11-19-2022 Tobacco smoking status IDIS Unknown if ever smoked [facility] Start: 10-24-2014 None [facility] Start: 09-05-2015 Spouse/ Signif icant Other [facility] Start: 1955 Sex Assigned At Male [facility] Start: 05-10-1975 End: 06-19-2024 Tobacco smoking status IDIS Heavy tobacco smoker [facility] Start: 05-10-1975 History of tobacco use Cigarette Smo ker [facility] Start: 05-10-2015 End: 05-24-2024 Cigarettes smoked current (pack per day) - Reported 3 [facility] Start: 07-24-2016 End: 10-14-2024 Alcoholic beverage intake Not Asked [facility] Start: 05-24-2024 End: 05-25-2024 [facility] Utilities [facility] Has the [employer], [employer], [employer], or water company threatened to shut off services in your home in past 12Mo No [facility] (I/We) worried rachael er (my/our) food would run out before (I/we) got money to buy more. Never true [facility] In the past 12 month s, has lack of transportation kept you from medical appointments or from getting medications? No [facility] Start: 1955 Sex assigned at Not on file C [facility] Start: 07-25-2024 End: 10-14-2024 Tobacco smoking status IDIS Ex-smoker [facility] Start: 05-10-1975 History of tobacco use Current smoke r [facility] Start: 05-02-2024 Tobacco smoking stat us [facility] Smokes tobacco daily (finding) [facility] NEGATED: Highlighted rowStart: NINF History of tobacco use Passive smoker [facility] Goals Date Patient Goal Desired Activity /State Personal health goal Functional Status Date Assessment Result Facility 06-06-2024 Are you deaf, or do you have serious difficulty hearing No 06/06/2024 5:52 PM Peng Cobb, ALEXANDRE No [facility] 06-06-2024 Are you blind, or do you have serious difficulty seeing, even when wearing glasses No 06/06/2024 5:52 PM Peng Cobb, ALEXANDRE No [facility] 06-06-2024 Do you have serious difficulty walking or climbing stairs Yes 06/06/2024 5:52 PM Peng Cobb, ALEXANDRE Yes [facility] 06-06-2024 Do you have difficul ty dressing or bathing No 06/06/2024 5:52 PM Peng Cobb, ALEXANDRE No [facility] 06-06-2024 Because of a physica l, mental, or emotional condition, do you have difficulty doing errands alone such as visiting a physician's office or shopping No 06/06/2024 5:52 PM Peng Cobb, ALEXANDRE No [facility] Mental Status Date Assessment Result Facility 06-06-2024 Because of a physica l, mental, or emotional condition, do you have serious difficulty concentrating, remembering, or making decisions No 06/06/2024 5:52 PM EST Peng iKm RN No [facility] Clinical Notes 05-23-2024 to 12-08-2024 Telephone Encounter - Niki Rasheed LPN - 10/14/2024 1:54 PM EDTTelephone Encounter - Niki Rasheed LPN - 10/14/2024 1:54 PM EDTTelephone Encounter - Niki Rasheed LPN - 10/13/2024 4:17 PM EDT Note Date & Type Note Facility 12-08-2024 Note HNO ID: [id number] Author: ALISON PIZARRO MD Service: Hospital Medicine Author Type: Resident Type: Progress Notes Filed: 12/16/2024 16:10 Note Text: Documentation Query Please clarify sepsis diagnosis: Sepsis Ruled In This document will become part of the patient's medical record. [facility] 12-08-2024 Note HNO ID: [id number] Author: TRUDI GEORGE RN Service: Care Management Author Type: Registered Nurse Type: Care Mgt Progress Note Filed: 12/08/2024 15:41 Note Text: CARE MANAGEMENT DISCHARGE NOTE SERVICE DATE: December 08, 2024 SERVICE TIME: 3:29 PM Admission Date: 12/03/2024 LOS: 5 days Discharge Arrangement Discharge Arrangement: Senior Living Facility Was an expedited discharge program used?: No Provider Name: [facility] Caregiver Assessment Caregiver is ready, willing and able to meet the patient's needs as recommended by the inter-professional team: Yes Name of Caregiver: [facility] Transportation Arrangements Transportation Arrangements: Ambulance Transportation Agency and Phone #:: [facility] ( [facility] ) [phone] / [phone] Date of Trip: 12/08/24 Time of Trip: 1600 Type of Service: BLS Non-emergency Is Patient Medicaid Pending?: No Was transportation financial coverage discussed with family?: 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 Discharge today. Discharge orders complete. Plan is for patient to return to [facility]. Facility notified and is able to accept patient. Insurance authorization obtained. Transportation set for 1600. [facility] and bedside RN notified. Patient states he will notify his family of discharge time and details. SIGNATURE: Trudi George RN PATIENT NAME: Mitul Oakes DATE: December 08, 2024 TIME: 3:29 PM [facility] 12-08-2024 Note HNO ID: [id number] Author: TRUDI GEORGE RN Service: Care Management Author Type: Registered Nurse Type: Care Mgt Progress Note Filed: 12/08/2024 14:09 Note Text: CARE MANAGEMENT PROGRESS NOTE SERVICE DATE: 12/08/2024 SERVICE TIME: 2:00 PM LOS: 5 days IMM Follow Up Copy Given: Yes Copy given to:: Patient Method: In Person SIGNATURE: Trudi George RN PATIENT NAME: Mitul Oakes DATE: December 08, 2024 TIME: 2:09 PM [facility] 12-08-2024 Note HNO ID: [id number] Author: TEDDY CONWAY MD Service: Hospital Medicine Author Type: Resident Type: Progress Notes Filed: 12/10/2024 10:21 Note Text: Attestation signed by Teddy Conway MD at 12/10/2024 10:21 AM [facility] MED[facility] SERVICE ATTENDING ATTESTATION: I saw and evaluated the patient on rounds on 12/08/2024. Discussed case with the medicine team and agree with resident's findings and plan as documented in the resident's note. Teddy Conway MD [facility] [place] PROGRESS NOTE PATIENT NAME: Mitul Oakes ADMITTED FOR: LOS: 5 days Subjective HPI Mr. 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 Was on Vancomycin and Ertapenem for Left foot and toe infection. Changed Ertapenem to Meropenem for pseudomonas coverage. In ED, Wbc 18.7, absolute neutrophil count 16.04. CXR - small right pleural effusion with adjacent atelectasis. INTERVAL EVENTS Restarted Trazodone but on a lower dose Blood pressure 125/56 Heart rate 65 Patient seen bedside. No acute complaints. He wants to be discharged today. Today's pertinent results include: CBC and BMP unremarkable Sputum culture-mixed oral miceky Objective OBJECTIVE BP 125/56 Pulse 65 Temp 36.4 ?C (97.5 ?F) (Axillary) Resp 18 Ht 180.3 cm (5' 11") Wt 124.7 kg (275 lb) SpO2 92% BMI 38.35 kg/m? Temp (24hrs), Av.4 ?C (97.5 ?F), Min:36.2 ?C (97.2 ?F), Max:36.7 ?C (98 ?F) Body mass index is 38.35 kg/m?., No results found for: "HBA1C" Intake/Output Summary (Last 24 hours) at 12/08/2024 0713 Last data filed at 12/07/2024 1546 Gross per 24 hour Intake -- Output 610 ml Net -610 ml Physical Exam Constitutional: Appearance: He is obese. HENT: Head: Normocephalic and atraumatic. Nose: No congestion or rhinorrhea. Mouth/Throat: Mouth: Mucous membranes are moist. Cardiovascular: Rate and Rhythm: Normal rate. Abdominal: General: There is no distension. Musculoskeletal: Cervical back: No rigidity. Comments: Right BKA Left Great toe amputated Left 2nd toe healing ulcer Skin: Capillary Refill: Capillary refill takes less than 2 seconds. Neurological: Mental Status: He is alert and oriented to person, place, and time. Psychiatric: Mood and Affect: Mood normal. LABORATORY: CBC: Recent Labs 12/08/2434512/07/2420612/06/2433212/05/24 0306 12/04/24 0629 12/03/24 1716 WBC 10.93 8.36 9.94 14.05* 9.75 18.73* HB 13.3 13.3 13.3 13.4 14.0 15.0 HCT 42.5 41.3 41.3 41.5 43.9 46.6 PLT 246 243 253 270 239 289 MCV 81.9 79.4* 80.8 80.9 80.8 81.5 RDWCV 17.2* 17.2* 17.5* 17.6* 17.2* 18.4* NEUTP -- -- -- -- -- 85.7 ABSNEUT -- -- -- -- -- 16.04* LYMPHP -- -- -- -- -- 5.8 MONOP -- -- -- -- -- 6.4 EODINP -- -- -- -- -- 0.8 COAG: No results for input(s): "APTT", "INR" in the last 168 hours. CMP: Recent Labs 12/08/2434612/07/2420612/06/24 03312/05/24 0306 12/04/24 0629 12/03/24 1716 GLUC 153* 175* 112* 103* 195* 135* NA 140 137 138 135* 137 137 K 4.2 4.2 4.0 4.3 3.6* 3.8 CHLOR 102 98 97* 99 100 98 CO2 28 31* 31* 29 27 26 ANION 10 8 10 7* 10 13 BUN 17 16 14 14 10 7* CREAT 0.85 0.86 0.85 0.90 0.86 1.01 ALB -- -- -- -- -- 3.5* TBILI -- -- -- -- -- 0.6 ALKPHOS -- -- -- -- -- 167* AST -- -- -- -- -- 19 ALT -- -- -- -- -- 18 TPROT -- -- -- -- -- 7.9 MG -- -- -- -- 2.3 1.7 URINALYSIS: Recent Labs 12/03/24 2248 SPGR 1.020 UGLUC Negative UBILI Negative UKET Negative UHB Negative UPROT Negative UWBC 0-5 /HPF Cardiac:No results for input(s): "CKTEST", "CKMB", "CKMBP", "TROPONIN", "BNP" in the last 168 hours. Microbiology: Positive Micro-30 Days Procedure Component Value Units Date/Time Respiratory Culture and Stain [[id number]] (Abnormal) Collected: 12/06/24 1226 Order Status: Completed Specimen: Sputum Updated: 12/07/24 0734 Culture, Respiratory Few Normal respiratory mickey present Gram Stain Moderate Mixed oral mickey Few Polymorphonuclear leukocytes Few Epithelial cells Respiratory Culture and Stain [[id number]] (Abnormal) Collected: 12/06/24 1226 Order Status: Completed Specimen: Sputum Updated: 12/07/24 0734 Culture, Respiratory Few Normal respiratory mickey present Gram Stain Moderate Mixed oral mickey Rare Polymorphonuclear leukocytes Few Epithelial cells Expanded Respiratory Pathogen Panel by PCR, Expedited [[id number]] (Abnormal) Collected: 12/03/24 1717 Orde (more content not included)... [facility] 12-07-2024 Note HNO ID: [id number] Author: AUGUSTO LAKE MD Service: Hospital Medicine Author Type: Resident Type: Progress Notes Filed: 12/07/2024 13:48 Note Text: Attestation signed by Augusto Lake MD at 12/07/2024 1:48 PM Attending Note I personally saw and examined the patient. I reviewed the resident's note. I agree with the resident's assessment and plan unless otherwise noted. CC: 12/03/2024, ED via EMS from nursing facility, for respiratory distress with SPO2 84% on 4 L, required BiPAP on arrival to the ED 69-year-old male with history of smoking, hypertension, dyslipidemia, type 2 diabetes on insulin, coronary artery disease with history of PCI in 2009, history of PAD, s/p right BKA, history of DVT, class II obesity, on ertapenem and vancomycin for a left foot diabetic infection (s/p IANDD of left foot 06/10, left lower extremity angiogram with distal left superficial femoral artery angioplasty, hallux amputation 06/10 with plan for left second [place] [facility] the [place]) presented with shortness of breath hypoxia requiring BiPAP on arrival to the ED for respiratory distress. Blood work showed leukocytosis of 18K with 85% neutrophils and mild bandemia, COVID and flu were negative, mild troponin elevation without delta, low procalcitonin 0.09. Chest x-ray showed signs of small right-sided pleural effusion. CT chest showed Airway inflammation with mixed consolidative and tree-in-bud opacities throughout the lungs, worst within the right lower lobe, likely infectious/inflammatory. Expanded respiratory panel positive for parainfluenza 3. A/P Acute hypoxic respiratory failure; likely due to bacterial pneumonia and parainfluenza 3 infection triggering COPD exacerbation. Patient's oxygen was weaned off to 3 L. Required IV steroids yesterday. Continue prednisone oral to complete total 5 days. Continue aggressive Acapella and incentive spirometry. Appreciate ID recommendations, continue oral levofloxacin. Continue course of IV antibiotics recently prescribed at the [facility] for left second toe osteomyelitis as below. Wean off oxygen goal 88 to 92%. Follow up sputum culture. Recent history of diabetic foot infections with history of left second toe OM. Recent history of right hallux amputation without any active signs of infection and previous history of right BKA with peripheral arterial disease. Patient was on ertapenem and vancomycin prescribed at the [facility] for osteomyelitis and he was receiving that via right arm PICC line at [facility] with end date 12/24/2024, continue previous IV antibiotics. PAD s/p right BKA; continue statin and low-dose rivaroxaban. Type 2 diabetes with mild hyperglycemia without any signs of DKA; continue Lantus at current dose and adjust based on fasting reading. Continue correctional scale and patient may need Premeal insulin. Other chronic medical problems are stable Rest as outlined by Disposition: Back to [facility] once respiratory status improves, likely discharge to [facility] tomorrow. Of note, patient does not need pre-certification. Signature: Augusto Lake MD Date: 12/07/2024 Time: 1:46 PM Mr. 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 He had one episode of greenish yellow sputum emesis. He was saturating 84% upon EMS arrival and was placed on 4L N/C. Got 1 dose of Duo neb and solumedrol by EMS. CPAP was attempted by EMS but patient did not tolerate. Was Vancomycin and Ertapenem for Left foot and toe infection. Changed Ertapenem to Meropenem for pseudomonas coverage. In ED, Wbc 18.7, absolute neutrophil count 16.04. CXR - small right pleural effusion with adjacent atelectasis. No past medical history on file. PAST SURGICAL HISTORY Procedure Laterality Date APPENDECTOMY HX 83 COLSC FLX W/RMVL OF TUMOR POLYP LESION SNARE TQ 06/21/2015 FAMILY HISTORY Problem Relation Age of Onset Cancer Mother skin Diabetes Mother Diabetes Father Stroke Brother Hypertension Father Social History Tobacco Use Smoking status: Former Current packs/day: 3.00 Average packs/day: 3.0 packs/day for 49.6 years (148.7 ttl pk-yrs) Types: Cigarettes Start date: 05/10/1975 Passive exposure: Never No current facility-administered medications on file prior to encounter. Current Outpatient Medications on File Prior to Encounter Medication Sig traZODone (DESYREL) 50 mg tablet Take 50 mg by mouth (more content not included)... [facility] 12-06-2024 Note HNO ID: [id number] Author: AUGUSTO LAKE MD Service: Hospital Medicine Author Type: Resident Type: Progress Notes Filed: 12/06/2024 18:40 Note Text: Attestation signed by Augusto Lake MD at 12/06/2024 6:40 PM (Updated) Attending Note I personally saw and examined the patient. I reviewed the resident's note. I agree with the resident's assessment and plan unless otherwise noted. CC: 12/03/2024, ED via EMS from nursing facility, for respiratory distress with SPO2 84% on 4 L, required BiPAP on arrival to the ED 69-year-old male with history of smoking, hypertension, dyslipidemia, type 2 diabetes on insulin, coronary artery disease with history of PCI in 2009, history of PAD, s/p right BKA, history of DVT, class II obesity, on ertapenem and vancomycin for a left foot diabetic infection (s/p IANDD of left foot 06/10, left lower extremity angiogram with distal left superficial femoral artery angioplasty, hallux amputation 06[facility]10 [facility] presented with shortness of breath hypoxia requiring BiPAP on arrival to the ED for respiratory distress. Blood work showed leukocytosis of 18K with 85% neutrophils and mild bandemia, COVID and flu were negative, mild troponin elevation without delta, low procalcitonin 0.09. Chest x-ray showed signs of small right-sided pleural effusion. CT chest showed Airway inflammation with mixed consolidative and tree-in-bud opacities throughout the lungs, worst within the right lower lobe, likely infectious/inflammatory. Expanded respiratory panel positive for parainfluenza 3. A/P Acute hypoxic respiratory failure; likely due to bacterial pneumonia and parainfluenza 3 infection triggering COPD exacerbation. Patient's oxygen was weaned off to 2 L. S/p IV dose of steroid today and continue 40 mg from tomorrow. Continue aggressive Acapella and incentive spirometry. Appreciate ID recommendations, continue oral levofloxacin. Continue course of IV antibiotics recently prescribed [place] for left second toe osteomyelitis as below. Wean off oxygen goal 88 to 92%. Follow up sputum culture. Recent history of diabetic foot infections with history of left second toe OM. Recent history of right hallux amputation without any active signs of infection and previous history of right BKA with peripheral arterial disease. Patient was on ertapenem and vancomycin prescribed [place] the [place] for osteomyelitis and he was receiving that via right arm PICC line at [facility] with end date 12/24/2024,, we have resumed IV antibiotics. PAD s/p right BKA; continue statin and low-dose rivaroxaban. Type 2 diabetes with mild hyperglycemia without any signs of DKA; continue Lantus at current dose and adjust based on fasting reading. Continue correctional scale and patient may need Premeal insulin. Other chronic medical problems are stable Rest as outlined by Dr. Ortiz. Disposition: Back to [facility] once respiratory status improves with resolution of hypoxia. Signature: Augusto Lake MD Date: 12/06/2024 Time: 6:31 PM Mr. 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 He had one episode of greenish yellow sputum emesis. He was saturating 84% upon EMS arrival and was placed on 4L N/C. Got 1 dose of Duo neb and solumedrol by EMS. CPAP was attempted by EMS but patient did not tolerate. Was Vancomycin and Ertapenem for Left foot and toe infection. Changed Ertapenem to Meropenem for pseudomonas coverage. In ED, Wbc 18.7, absolute neutrophil count 16.04. CXR - small right pleural effusion with adjacent atelectasis. Review of Systems Constitutional: Positive for activity change, appetite change and fatigue. HENT: Positive for congestion. Eyes: Negative. Respiratory: Positive for cough, shortness of breath and wheezing. Skin: Positive for wound. Allergic/Immunologic: Negative. Neurological: Negative. Hematological: Negative. Psychiatric/Behavioral: Negative. All other systems reviewed and are negative. No past medical history on file. PAST SURGICAL HISTORY Procedure Laterality Date APPENDECTOMY HX 83 COLSC FLX W/RMVL OF TUMOR POLYP LESION SNARE TQ 06/21/2015 FAMILY HISTORY Problem Relation Age of Onset Cancer Mother skin Diabetes Mother Diabetes Father Stroke Brother Hypertension Father Social History Tobacco Use Smoking status: Former Current packs/day: 3.00 Average (more content not included)... [facility] 12-05-2024 Note HNO ID: [id number] Author: TALYA HATCH RN Service: Care Management Author Type: Registered Nurse Type: Care Mgt Progress Note Filed: 12/05/2024 14:38 Note Text: CARE MANAGEMENT PROGRESS NOTE SERVICE DATE: 12/05/2024 SERVICE TIME: 2:12 PM LOS: 2 days Needs Prior to Discharge: To Be Determined, Discharge Transportation Chart reviewed. Patient tested positive for Parainfluenza Virus and is now in contact isolation. He is currently requiring 6L O2. ID is following. DC plan is for patient to return to [facility]. Patient was on IV abx at SN[facility] through the [place]. His current auth is good through 12/24 so will not need a new auth if discharged prior to date. [facility] is able to accommodate up to 10L O2. Patient will need DC transport. SIGNATURE: Uzma Hatch RN PATIENT NAME: Mitul Oakes DATE: December 05, 2024 TIME: 2:12 PM [facility] 12-04-2024 Note HNO ID: [id number] Author: AUGUSTO LAKE MD Service: General Internal Medicine Author Type: Physician Type: Progress Notes Filed: 12/04/2024 16:42 Note Text: Attending Note I personally saw and examined the patient. I reviewed the resident's note. I agree with the resident's assessment and plan unless otherwise noted. CC: 12/03/2024, ED via EMS from nursing facility, for respiratory distress with SPO2 84% on 4 L, required BiPAP on arrival to the ED 69-year-old male with history of smoking, hypertension, dyslipidemia, type 2 diabetes on insulin, coronary artery disease with history of PCI in 2009, history of PAD, s/p right BKA, history of DVT, class II obesity, on ertapenem and vancomycin for a left foot diabetic infection (s/p IANDD of left foot 06/10, left lower extremity angiogram with distal left superficial femoral artery angioplasty, hallux amputation 06/10 [facility] presented with shortness of breath hypoxia requiring BiPAP on arrival to the ED for respiratory distress. Blood work showed leukocytosis of 18K with 85% neutrophils and mild bandemia, COVID and flu were negative, mild troponin elevation without delta, low procalcitonin 0.09. Chest x-ray showed signs of small right-sided pleural effusion. CT chest showed Airway inflammation with mixed consolidative and tree-in-bud opacities throughout the lungs, worst within the right lower lobe, likely infectious/inflammatory. Expanded respiratory panel positive for parainfluenza 3. Patient was seen and examined at the bedside. Symptoms of cough with some thick sputum and shortness of breath are acute for couple of days. Reduced breath sounds in the right lower lung. Still requiring 4 L oxygen without any signs of fluid overload or wheezing. A/P Acute hypoxic respiratory failure; likely due to bacterial pneumonia and parainfluenza 3 infection triggering COPD exacerbation. Appreciate ID recommendations; stop IV antibiotics and changed to oral levofloxacin. Continue oral prednisone and bronchodilators and wean off oxygen goal 88 to 92%. Check sputum culture and follow-up blood cultures. Recent history of diabetic foot infections with history of left second toe infection with MRSA and Klebsiella already treated with ertapenem and bactrim in September. Recent history of right hallux amputation without any active signs of infection and previous history of right BKA with peripheral arterial disease. Stop IV antibiotics as recommended by ID and watch clinically. Wound care consult. Continue statin and low-dose rivaroxaban. Type 2 diabetes with mild hyperglycemia without any signs of DKA; continue Lantus at current dose and clinic based on fasting reading. Continue correctional scale and patient may need Premeal insulin. Other chronic medical problems are stable Rest as outlined by Dr. Ortiz. Signature: Augusto Lake MD Date: 12/04/2024 Time: 4:27 PM [facility] 12-04-2024 Note HNO ID: [id number] Author: HOWARD DUBOIS RPh Service: Pharmacy Author Type: Pharmacist Type: Plan of Care Filed: 12/04/2024 12:49 Note Text: PHARMACY MEDICATION REVIEW Patient Name: Mitul Oakes : 1955 The following medications were updated within the [facility] medication list: Medications ADDED to [facility] medication list Vitamin C Melatonin APAP Ertapenem Glucagon Medications CHANGED on [facility] [facility] medication list Spironolactone dose Bupropion dose Vitamin D3 Oxycodone dose (30mg to 5mg per dose) Insulin glargine dose (25units bid to daily) KCl dose Torsemide dose Carvedilol dose Vancomycin dose Medications REMOVED from [facility] medication list Fish oil pantoprazole Additional comments: Reviewed SNF MAR from [facility] and reviewed fill history through [facility] tab. Notable medication issues as follows: [facility], but resides in [facility] so was able to update based on [facility] MAR Notably, patient is on ertapenem and vancomycin at facility. The dose of vancomycin was changed from 1g q12h to 1.75g q24h to begin this am. Will adjust current vancomycin dose accordingly. Patient is on ASA, clopidogrel, and low dose rivaroxaban. Will d/w team and should clarify indication for DAPT in combo with low dose DOAC. [facility] need records [facility] The below information represents the best possible medication history: Yes Medication history completed by: Pharmacist: Howard Dubois RPh Source of history: [facility] MAR, [facility] records, and PDMP Medication nonadherence identified: No barriers noted Reconciliation completed: Yes Completed by: [facility] [place] All [facility] [facility] medications addressed by LIP Patient interested in [facility] or using [facility] OP Pharmacy at discharge? No Preferred outpatient pharmacy: [facility] [place] [address] - [address] - [phone] Allergies: Heparin Other: See Comments Comment:HIIT New pt to [facility] on 05/23/24. 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, caused right BKA Amitryptyline [Justin* Itching Comment:Per patient Prior to Admission Medications Prescriptions Last Dose Informant Patient Reported? Taking? MULTIVITAMIN ORAL Yes Yes Sig: Take 1 tablet by mouth once daily. Pregabalin (LYRICA) 200 mg capsule Yes Yes Sig: Take 1 capsule by mouth three times a day. acetaminophen (TYLENOL) 325 mg tablet Yes Yes Sig: Take 975 mg by mouth every 8 hours as needed. albuterol sulfate (PROAIR DIGIHALER) 90 mcg/actuation aebs Yes Yes Sig: Inhale 2 puffs as instructed four times a day as needed for wheezing/shortness of breath. ascorbic acid, vitamin C, (VITAMIN C) 500 mg tablet Yes Yes Sig: Take 500 mg by mouth two times a day. aspirin, enteric coated (ASPIRIN, ENTERIC COATED) 81 mg EC tablet Yes Yes Sig: Take 81 mg by mouth once daily. atorvastatin (LIPITOR) 80 mg tablet Yes Yes Sig: Take 1 tablet by mouth once daily. bacitracin 500 unit/gram pack Yes Yes Sig: Apply 1 application to affected area two times a day. To left anterior knee abrasion until healed buPROPion XL (WELLBUTRIN XL) 300 mg 24 hr tablet Yes Yes Sig: Take 300 mg by mouth every morning. kltlcuyuvf-kisbigrv-hvcqjeiltp (BREZTRI) 160-9-4.8 mcg/actuation HFA aerosol inhaler Yes Yes Sig: Inhale 2 Puffs as instructed two times a day. busPIRone (BUSPAR) 7.5 mg tablet Yes Yes Sig: Take 7.5 mg by mouth two times a day. carvedilol (COREG) 25 mg tablet Yes Yes Sig: Take 12.5 mg by mouth two times a day with meals. cholecalciferol (VITAMIN D) 1,000 unit tab tablet Yes Yes Sig: Take 1,000 Units by mouth once daily. clopidogrel (PLAVIX) 75 mg tablet Yes Yes Sig: Take 75 mg by mouth once daily. ertapenem (INVANZ) 1 gram injection Yes Yes Sig: Inject 1 g intravenously once daily. ezetimibe (ZETIA) 10 mg tablet Yes Yes Sig: Take 10 mg by mouth once daily. glucagon 1 mg/mL injection Yes Yes Sig: Inject 1 mg subcutaneously as needed (hypoglycemia. May administer again after 15 min if needed). insulin glargine-yfgn (SEMGLEE) 100 unit/mL (3 mL) insulin pen Yes Yes Sig: Inject 25 Units subcutaneously two times a day. Patient taking differently: Inject 25 Units subcutaneously once daily. isosorbide mononitrate ER (IMDUR) 30 mg 24 hr tablet Yes Yes Sig: Take 30 mg by mouth once daily. melatonin 3 mg tablet Yes Yes Sig: Take 9 mg by mouth daily at bedtime. ondansetron (ZOFRAN) 4 mg tablet Yes Yes Sig: Take 4 mg by mouth every 8 hours as needed for nausea/vomiting. oxyCODONE IR (ROXICODONE) 5 mg immediate release tablet Yes Yes Sig: Take 5 mg by mouth every 6 hours as needed for pain. potassium chloride 20 mEq TbER Yes Yes Sig: Take 20 mEq by mouth once daily. rivaroxaban (XARELTO) 2.5 mg tablet Yes Yes Sig: Take 2.5 mg by mouth two times a day. semaglutide (OZEMPIC) 2 mg/dose (8 mg/3 mL) pen injector Yes Yes Sig: Inject 2 mg subcutaneously one time a week. On Wednesdays spironolac (more content not included)... [facility] 12-04-2024 Note HNO ID: [id number] Author: ELVA RAMSEY, RN Service: Care Management Author Type: Registered Nurse Type: Care Mgt Initial Assessment Filed: 12/04/2024 12:44 Note Text: CARE MANAGEMENT: ASSESSMENT AND DISCHARGE PLAN SERVICE DATE: December 04, 2024 SERVICE TIME: 12:40 PM PCP: [place] SALLY KING Primary Contact: Extended Emergency Contact Information Primary Emergency Contact: Angelique Oakes Mobile Relation: Daughter Secondary Emergency Contact: Theresa Barr Relation: Mother Admission Status: Inpatient Insurance Provider: [facility] Needs Prior to Discharge: Bed Availability, Accepting Facility, Discharge Transportation, Precertification, Insurance Authorization IMM Follow Up Copy Given: Yes Copy given to:: Patient Method: In Person Discharge Planning requested by: Per Department Practice Needs Prior to Discharge: Bed Availability, Accepting Facility, Discharge Transportation, Precertification, Insurance Authorization IMM Follow Up Copy Given: Yes Copy given to:: Patient Method: In Person Potential Transition Plans Senior Living Facility/Intermediate Care Facility Advance Directives Current Advance Directive: None Supervisor Operations Attempted to Assist with AD Completion: Yes Action: Education Provided Current Living Arrangements and Support Lives with: Alone Type of Residence: Senior Living Facility Care Facility Name: [facility] Support: How do you manage to accomplish the following: Independent: Bathe/Shower, Dress Needs Assistance: Ambulation, Going to the bathroom, Medication Management, Meals/Meal Prep Dependent: Transportation to appointments/community Current Services/Equipment Current Post-Acute Service(s): DME Current DME Type: Wheelchair-manual, Walker Discharge Planning Patient Goal(s): Be able to go home, General wellness [place] of Choice Explained: [place] of Choice Given: Yes Level of Care Discussed: Senior Living Facility (plan to return to [facility]) Are you interested in bedside delivery of your medications? Yes Discharge Planning Participant(s): Patient Transport at Discharge: Transportation Arrangements: Ambulance Transportation Agency and Phone #:: [facility] ( [facility] ) [phone] / [phone] Type of Service: BLS Non-emergency Cattery Operator Location: [facility] Needs Prior to Discharge: Needs Prior to Discharge: Bed Availability, Accepting Facility, Discharge Transportation, Precertification, Insurance Authorization Post-Acute Discharge Plan: Chart reviewed. CM spoke with patient at bedside. Patient from [facility] and plan to return. Needs assistance with ADL's. Medication management and dependent on transportation. DME's- walker and wheelchair. Need PT/OT eval. Needs to be determined. CM to follow. SIGNATURE: Elva Ramsey RN PATIENT NAME: Mitul Oakes DATE: December 04, 2024 TIME: 12:40 PM [facility] 12-03-2024 Note SARS-COV-2 (AGENT OF COVID-19) RNA: Not detected INFLUENZA A RNA: Not detected INFLUENZA B RNA: Not detected RESPIRATORY SYNCYTIAL VIRUS (RSV) RNA: Not detected [facility] Comment on above: Performed By: #### 9 [id number], [id number] #### [facility] CLIA [id number] [address] OF [facility] 12-03-2024 Respiratory pathogens DNA and RNA 12b panel OSCAR+probe (Unsp spec) SARS-COV-2 (AGENT OF COVID-19) RNA: Not detected INFLUENZA A RNA: Not detected INFLUENZA B RNA: Not detected RESPIRATORY SYNCYTIAL VIRUS (RSV) RNA: Not detected HUMAN METAPNEUMOVIRUS (HMPV) RNA: Not detected HUMAN RHINOVIRUS/ENTEROVIRUS RNA: Not detected ADENOVIRUS DNA: Not detected PARAINFLUENZA 1 RNA: Not detected PARAINFLUENZA 2 RNA: Not detected PARAINFLUENZA 3 RNA: Detected PARAINFLUENZA 4 RNA: Not detected CORONAVIRUS 229E RNA: Not detected CORONAVIRUS OC43 RNA: Not detected CORONAVIRUS NL63 RNA: Not detected CORONAVIRUS HKU1 RNA: Not detected CHLAMYDIA PNEUMONIAE DNA: Not detected MYCOPLASMA PNEUMONIAE DNA: Not detected BORDETELLA PERTUSSIS DNA: Not detected BORDETELLA PARAPERTUSSIS DNA: Not detected [facility] Comment on above: Performed By: #### 9 [id number], [id number] #### [id number] [address] [place] [address] 10-14-2024 Telephone encounter Note Per Charley--Completed PO Bactrim and IV ertapenem on 10/07/24. PICC line was pulled at that time. The patient has no signs of relapse of the infection at this time with approximately 1 week being off antibiotics Still hasn't scheduled w podiatry Dr. Rubin for wound care and pressure needs needs Can paint the toe wound with Betadine and pad and protect till seen by podiatry. Use Adaptic and protect the ward area Monitor for signs of any worsening infection and call if these occur. Follow-up with infectious disease at the wound center as needed [facility] 10-14-2024 Miscellaneous Notes Faizan Whitehead--Completed PO Bactrim and IV ertapenem on 10/07/24. PICC line was pulled at that time. The patient has no signs of relapse of the infection at this time with approximately 1 week being off antibiotics Still hasn't scheduled w podiatry Dr. Rubin for wound care and pressure needs needs Can paint the toe wound with Betadine and pad and protect till seen by podiatry. Use Adaptic and protect the ward area Monitor for signs of any worsening infection and call if these occur. Follow-up with infectious disease at the wound center as needed Mitul has an appt Sunday with Charley at [facility]. The Ertapenem and Bactrim were d/c on the October 07 stop date and the picc line is being maintained until seen by Charley. October 13 labs wnl The tubes were taken to [facility] lab The results were attached to the M drive October 06 labs wnl The tubes were taken to [facility] lab The results were attached to the M drive Per RS stop abx at [facility] 10-07 and MTN PICC VO given to Chaay at [facility] [phone] SHANAE Whitehead--Please see the attached wound care note on Mitul Oakes. He's currently on Ertapenem and Bactrim with a stop date of October 07. The next wound care appt is October 14. Do you want to extend abx or stop and mtn until seen by you? October 02 labs wnl The tubes were taken to [facility] The results were attached to the M drive Nyla called back to let me know the labs were never done as ordered on Sunday. She will put in the order to have them drawn in the morning. I called the E[facility] and spoke with the nurse, Nyla. She can't find the Sunday labs so she is going to call the lab. She will either fax them over or call me back. September 23 labs wnl The tubes were taken to [facility] The results were attached to the M drive Summary: COPAT ACTION-FOR IDC USE ONLY RS-[facility] 09-16-24 cultures reviewed by RS. Per RS: Stop doxy. Start Bactrim DS one tab po bid. Start Ertapenem 1 g iv daily. Both abx for 2 weeks Orders faxed to [facility] for abx and labs DX: CELLULITIS OF TOE LEFT FOOT L03.032 TX: ERTAPENEM 1GM IV Q24 TX: BACTRIM DS 1 TAB BID STOP: 14 DAYS LABS: CBC/D ALT CREAT QMON FU: [facility] ECF: [facility] [phone] documented in this encounter [facility] 10-14-[address] [facility] 10-14-2024 History of Presen t illness Narrative INFECTIOUS DISEASE WOUND CENTER NOTE Patient Name: Mitul Oakes Date: 10/14/2024 ASSESSMENT: Pressure/trauma related callus and wound on the left second toe Cellulitis/wound infection of the left second toe Osteomyelitis of great toe of left foot s/p amputation CAD (coronary artery disease) LEFT hallux wound to level of BONE LEFT dorsal foot wound to level of SUBCUTANEUS tissue LEFT foot cellulitis PVD ==> vascular consult Anxiety Depression COPD (chronic obstructive pulmonary disease) (HCC) History of DVT (deep vein thrombosis) Type 2 diabetes mellitus (HCC) Hx Right BKA PLAN: Completed PO Bactrim and IV ertapenem on 10/07/24. PICC line was pulled at that time. The patient has no signs of relapse of the infection at this time with approximately 1 week being off antibiotics Still hasn't scheduled w podiatry Dr. Rubin for wound care and pressure needs needs Can paint the toe wound with Betadine and pad and protect till seen by podiatry. Use Adaptic and protect the ward area Monitor for signs of any worsening infection and call if these occur. Follow-up with infectious disease at the wound center as needed INTERVAL HISTORY: ROS done with pt and negative unless stated. Patient has been doing well. Successfully stop the antibiotics on 10/07 and has been monitored off antibiotics since that time without any signs of infection relapse. He denies any pain in the foot. No fevers or chills. MEDICATIONS: albuterol sulfate (PROAIR DIGIHALER) 90 mcg/actuation aebs Inhale 2 Puffs as instructed every 4 hours as needed for wheezing/shortness of breath. ezetimibe (ZETIA) 10 mg tablet Take 10 mg by mouth once daily. clopidogrel (PLAVIX) 75 mg tablet Take 75 mg by mouth once daily. busPIRone (BUSPAR) 7.5 mg tablet Take 7.5 mg by mouth two times a day. potassium chloride SR (MICRO-K) 10 mEq CR capsule Take 10 mEq by mouth once daily. sodium chlor-hypochlorous acid (VASHE) 0.033 % irsl Irrigate as instructed as directed. With each wound care dressing change ondansetron (ZOFRAN) 4 mg tablet Take 4 mg by mouth every 8 hours as needed for nausea/vomiting. oxyCODONE IR (ROXICODONE) 30 mg immediate release tablet Take 30 mg by mouth every 6 hours as needed for pain. aspirin, enteric coated (ASPIRIN, ENTERIC COATED) 81 mg EC tablet Take 81 mg by mouth once daily. atorvastatin (LIPITOR) 80 mg tablet Take 1 tablet by mouth once daily. gmudhoqizy-swyhmlsk-czxqompxfx (BREZTRI) 160-9-4.8 mcg/actuation HFA aerosol inhaler Inhale 2 Puffs as instructed two times a day. buPROPion XL (WELLBUTRIN XL) 150 mg 24 hr tablet Take 300 mg by mouth every morning. isosorbide mononitrate ER (IMDUR) 30 mg 24 hr tablet Take 30 mg by mouth. Pregabalin (LYRICA) 200 mg capsule Take 1 capsule by mouth three times a day. rivaroxaban (XARELTO) 2.5 mg tablet Take 2.5 mg by mouth two times a day. semaglutide (OZEMPIC) 2 mg/dose (8 mg/3 mL) pen injector Inject 2 mg subcutaneously one time a week. spironolactone (ALDACTONE) 25 mg tablet Take 0.5 tablets by mouth once daily. torsemide (DEMADEX) 20 mg tablet Take 1 tablet by mouth every morning. carvedilol (COREG) 25 mg tablet Take 25 mg by mouth twice daily with meals. vitamin D3-vitamin K2, MK4, 1,000-100 unit-mcg tab Take by mouth. traZODone (DESYREL) 50 mg tablet Take 50 mg by mouth daily at bedtime. (Patient not taking: Reported on 10/14/2024) pantoprazole DR (PROTONIX) 40 mg tablet Take 40 mg by mouth two times a day. (Patient not taking: Reported on 09/16/2024) vancomycin 500 mg/100 mL IVPB Inject 500 mg intravenously every 12 hours. Per family - not on Mar but should go through 06/27/2024 (Patient not taking: Reported on 07/10/2024) insulin glargine-yfgn (SEMGLEE) 100 unit/mL (3 mL) insulin pen Inject 25 Units subcutaneously two times a day. (Patient not taking: Reported on 09/16/2024) [place]-3 Fatty Acids-Vitamin E (FISH OIL) 1,000 mg cap Take 1 capsule by mouth. (Patient not taking: Reported on 07/25/2024) PHYSICAL EXAM: Vital signs: stable, afeb General: alert, oriented, NAD Lungs: bilaterally clear to auscultation Heart: regular rate and rhythm Abdomen: soft, non tender, non distended, BS+ Extremities: no swollen joints Skin: no rash Second toe wound without any signs of infection. No cellulitis in the foot of the toes. Hammertoe deformity noted Left ward skin tears with clean base without any signs of infection or cellulitis Lab data: reviewed WBC (k/uL) Date Value 07/02/2024 9.45 06/06/2024 10.37 06/05/2024 9.31 Hemoglobin (g/dL) Date Value 07/02/2024 13.9 06/06/2024 11.8 06/05/2024 12.6 INR (no units) Date Value 05/23/2024 1.1 Sodium (mmol/L) Date Value 07/02/2024 137 06/06/2024 140 06/05/2024 140 Potassium (mmol/L) Date Value 07/02/2024 3.8 06/06/2024 4.2 06/05/2024 4.0 CO2 (mmol/L) Date Value 07/02/2024 26 06/06/2024 28 06/05/2024 28 BUN (mg/dL) Date Value 07/02/2024 10 06/06/2024 15 06/05/2024 15 Creatinine (mg/dL) Date Value 07/02/2024 1.14 06/06/2024 1.03 06/05/2024 1.15 AST Date Value 07/02/2024 23 U/L 05/24/2024 18 U/L 05/23/2024 Comment: Unable to assay due to interference from hemolysis. Suggest reorder as clinically indicated. ALT (U/L) Date Value 07/02/2024 26 05/24/2024 12 05/23/2024 13 Bilirubin, Total (mg/dL) Date Value 07/02/2024 0.4 05/24/2024 0.6 05/23/2024 0.6 Alkaline Phosphatase (U/L) Date Value 07/02/2024 146 05/24/2024 105 05/23/2024 122 Sed Rate, Westergren (mm/hr) Date Value 05/24/2024 15 Sepsis Lactate (mmol/L) Date Value 07/02/2024 1.8 07/02/2024 2.8 05/23/2024 1.6 Vancomycin (ug/mL) Date Value 06/06/2024 14.8 06/02/2024 16.9 05/31/2024 21.9 05/28/2024 16.5 05/26/2024 14.3 05/25/2024 29.1 Microbiology data: reviewed Imaging data: reviewed Jeanne Whitehead MD Pager: Nursing Documentation Pertinent Medical History: DM II, HIT, Right BKA, Sleep Apnea, COPD, AAA, PVD, HTN, CAD Wound Etiology according to patient: Wound on the Left lower Extremity with Surgery Jun 05, 2024 Patient arrived via: Wheelchair with family from facility([facility]) Home Care Company/Nursing Facility: Lives at [facility] Consent captured for debridement per Dr. Brandon Rubin and catarino until December 2024 Special Instructions: Self transfers Anticoagulant Therapy: ASA & Xarelto Living Situation (ie... 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 Provider seeing patient: Brandon Rubin DPM & Jeanne Whitehead MD Wounds 1, 2, 3, 4, 5 previously closed WOUND ASSESSMENT: Refer to Provider's Wound Assessment Note VASCULAR ASSESSMENT BY PROVIDER: CHF History: denies Smoking: quit 1.5 years after smoking 50 years Education: EDEMA: Right foot: BKA Right calf: N/A Left foot: trace Left Calf: 1+ MEASUREMENTS: in CM Right Calf: N/A Right Ankle: BKA Left Calf: 37.4 Left Ankle: 24.7 Length: 47.0 not measured at visit WOUND PHOTOGRAPHY: Yes x 2; Last date taken 10/14/2024 DEBRIDEMENT PROCEDURE BY PROVIDER: Anesthetic Used: n/a Wound # Other procedure: n/a Specimen collected: n/a WOUND TREATMENT PER MD ORDER: Wounds cleansed by mechanical debridement to allow provider to visualize wound base WOUND # 6 LOCATION: Left Plantar 2nd Toe (Started 09/11/2024 approximately) L: 0.4 cm x W: 0.5 cm x D: 0.2 cm Post Debridement Measurements: L: cm x W: cm x D: cm Cleansed with: Vashe Applied to carmita-wound skin: skin prep Applied to wound bed: Betadine Covered and secured with: 2x2 Allevyn Other: AOC: Right Stump Lateral-Distal end of stump (07/15/24) AOC: 10/14/24 Left anterior lower leg - scattered skin tears. - Vashe', adaptic, 4x4 gauze, conform and tape COMPRESSION: Awaiting PVR results from vascular (appointment scheduled for 02/02/25) LISA WRAP/[employer]-library services dean: Foot is warm and pink before and after application. It was demonstrated to the patient how to check for adequate circulation. Patient voices understanding. If circulation becomes compromised by a change in color, increased pain, numbness or tingling to the area, the patient knows to remove the compression and elevate the leg above the heart. DME: N/A, pt resides in a facility SPECIAL NEEDS: Coordination of care - AVS sent to [facility] via [facility] Emotional support N/A OR set-up N/A Steno Pool Supervisor N/A Incontinence needs N/A DISCHARGED in stable condition to: Wheelchair with transport PLAN/ORDERS: - Return to the [facility] for a follow-up with heavy machinery operator Dr. Rubin as soon as possible. - Follow-up in the wound center to see infectious disease specialist Dr. Whitehead as needed for any concerns - Please do not trim your own toe nails - Being Diabetic - Podiatry should be managing nail care - Continue aggressive nutritional support to assist in wound healing, focusing heavily on increasing protein intake. Try to get about 100 g of protein per day to promote wound healing. Look into supplementing your meals with protein shakes. Do NOT skip meals! - If you have any questions or concerns that cannot be answered with the following information, please follow the instructions listed above on how to contact the wound center. - It is imperative to change the left 2nd toe wound dressing every day EDUCATION: The patient/family was instructed how to cleanse the wound(s). Visual demonstration on how to apply the dressing with teach back method. Signs & symptoms of infection were reviewed: Increased redness, swelling, pain, green/yellow drainage, fever and/or chills would all need to be evaluated by a Physician. Patient received typed home-going wound care instructions and has expressed intent to comply. Education performed regarding lymphedema/edema: n/a Elevation of extremity above the heart for 30 minutes three times daily and as needed Exercise such as writing the ABC's with your toes in the air, walking and/or calf pumps Wearing compression as ordered by provider Diet controlling of sodium as instructed by provider Use of medication to help control edema. UNIVERSAL PROTOCOL / SAFETY CHECKLIST Procedure to be Performed: Sharp Serial Debridement of Left Foot N/A Current HBOT Status: Active or Complete - see screening below WOUND CENTER HYPERBARIC OXYGEN THERAPY SCREENING 1. Is the patient diabetic? (If No, skip to question 5) Yes 2. Does the patient have a lower extremity wound? Yes 3. Is there exposed/involved tendon or bone? No 4. Has the wound been present for 30 days? Yes If Yes to ALL questions above, consult the Hyperbaric Center 5. Has the patient been diagnosed with osteomyelitis? No 6. Has the patient had a previous skin graft or flap at the wound? No 7. Has the patient had or been offered vascular intervention/evaluation? No 8. Does the patient have a wound at an amputation site? No 9. Has the patient had radiation therapy at the site of the problem? No If Yes to ANY of questions 5-9, consult the Hyperbaric Center Shira Conner RN/ documented in this encounter [facility] 10-14-2024 Instructions Shira Conner RN - 10/14/2024 12:58 PM EDT WOUND CARE INSTRUCTIONS- Mitul Oakes Wound Location: Left 2nd toe plantar [facility]: Patient's dressing to left 2nd toe MUST be changed daily. Per patient this is not occurring. Wound Care for all wounds: - Wash your hands with soap and water before and after wound care. - Gather all supplies needed. - Moisten a 4x4 gauze with a few drops of Vashe and allow to soak on the wound bed for 5-10 minutes. Remove and pat dry with another clean 4x4 gauze. Left 2nd toe - [place] with Betadine and allow to dry - Cover with a 2x2 Allevyn. - Change dressing DAILY and as needed to maintain a clean, dry, & intact dressing. Area of concern: Left anterior lower leg: - [place] scabbed areas with Betadine and allow to dry - Apply adaptic (mesh like material) to the skin tears - Cover with 4x4 gauze - Secure with conform and tape - Change dressing daily and as needed to maintain a clean, dry and intact dressing To give your wound the best chance to heal: - Eat three balanced meals daily focusing on the protein - Control swelling by elevating the extremity above your heart - Control your blood sugar. Keep blood sugar less than 200 - Complete your wound care instructions - Vitamin C 500 mg twice daily - Multiple Vitamin Daily - Drink a protein shake daily - premiere shakes for non-diabetic patients Premiere Clear or Glucerna for Diabetic patients and Nepro for Chronic Kidney Disease patients. Report any of the following changes [phone] or go to the Emergency Department: Fever or chills Increased drainage Green or yellow drainage Foul odor Increased pain Hardness around the wound Redness, warmth or swelling of the surrounding tissue Color change to the wound Evenings / Weekends / Holidays If you call the wound center at the phone number provided above, please leave a detailed message that includes your full name, birthday, and phone number. We are seeing patients during the day, so we will return your call within a 24-48 hr period in the order your call was received. There is not an on-call provider assigned to the wound center. If you have an emergency that needs to be addressed, please go to an Urgent Care or Emergency Room. Thank you for your cooperation and understanding. If you are feeling ill, please call to reschedule your appointment. If you believe your illness to be wound related, call and leave a message using the directions above describing your symptoms. If you cannot wait 24-48 hrs for a callback, please get evaluated in the nearest emergency department. PLAN/ORDERS: - Return to the [facility] for a follow-up with heavy machinery operator Dr. Rubin as soon as possible. - Follow-up in the wound center to see infectious disease specialist Dr. Whitehead as needed for any concerns - Please do not trim your own toe nails - Being Diabetic - Podiatry should be managing nail care - Continue aggressive nutritional support to assist in wound healing, focusing heavily on increasing protein intake. Try to get about 100 g of protein per day to promote wound healing. Look into supplementing your meals with protein shakes. Do NOT skip meals! - If you have any questions or concerns that cannot be answered with the following information, please follow the instructions listed above on how to contact the wound center. - It is imperative to change the left 2nd toe wound dressing every day Dr. Jeanne Whitehead MD/nh/lt documented in this encounter [facility] 10-14-[address] [facility] 10-13-2024 Telephone encounter Note Mitul has an appt Sunday with Charley at [facility]. The Ertapenem and Bactrim were d/c on the October 07 stop date and the picc line is being maintained until seen by Charley. [facility] 10-13-2024 Telephone encounter Note October 13 labs wnl The tubes were taken to [facility] The results were attached to the M drive [facility] 10-08-2024 Telephone encounter Note October 06 labs wnl The tubes were taken to [facility] The results were attached to the M drive [facility] 10-03-2024 Telephone encounter Note Per RS stop abx at [facility] -22 and MTN PICC VO given to Chaya at [facility] [phone] [facility] 2024 Telephone encounter Note SHANAE Whitehead--Please see the attached wound care note on Mitul Oakes. He's currently on Ertapenem and Bactrim with a stop date of October 07. The next wound care appt is October 14. Do you want to extend abx or stop and mtn until seen by you? [facility] 2024 Telephone encounter Note October 02 labs wnl The tubes were taken to [facility] The results were attached to the M drive [facility] 10-01-2024 Telephone encounter Note Nyla called back to let me know the labs were never done as ordered on Sunday. She will put in the order to have them drawn in the morning. [facility] 10-01-2024 Telephone encounter Note I called the [facility] and spoke with the nurse, Nyla. She can't find the Sunday labs so she is going to call the lab. She will either fax them over or call me back. [facility] 09-25-2024 Telephone encounter Note September 23 labs wnl The tubes were taken to [facility] The results were attached to the M drive [facility] 09-24-2024 Telephone encounter Note Summary: COPAT ACTION-FOR IDC USE ONLY [facility] 09[facility]16[facility]24 cultures reviewed by RS. Per RS: Stop doxy. Start Bactrim DS one tab po bid. Start Ertapenem 1 g iv daily. Both abx for 2 weeks Orders faxed to [facility] for abx and labs DX: CELLULITIS OF TOE LEFT FOOT L03.032 TX: ERTAPENEM 1GM IV Q24 TX: BACTRIM DS 1 TAB BID STOP: 14 DAYS LABS: CBC/D ALT CREAT QMON FU: [facility] ECF: [facility] [phone]/FAX [phone] [facility] 09-23-2024 Telephone encounter Note Summary: 09-16-24 culture results YAN sent RS culture results from [facility] for review. PER RS: Continue oral doxycycline. Start topical triple antibiotic ointment twice a day to the wound. The patient will need IV antibiotics if there is any worsening of the wound as there are no oral antibiotics available for the infection detected. I called [facility] in [place] [phone] and gave information to Yolande. Nursing will call back if they have any questions. Milena from [facility] called back to let us know the EMAIL MARKETING PROCESSOR changed his abx. Doxy stopped and started Keflex 250mg po 4 times daily till 09-26-24. RS notified by EMELIA PER RS: Neither of his bacteria are sensitive to Keflex. I called Milena at [facility]- she reports that patient did not have any problems with the Doxy and she will put him back on the Doxy x7 days and inform the EMAIL MARKETING PROCESSOR at the [facility]. [facility] 09-23-2024 Miscellaneous Notes Summary: 09-16-24 culture results YAN sent RS culture results from [facility] for review. PER RS: Continue oral doxycycline. Start topical triple antibiotic ointment twice a day to the wound. The patient will need IV antibiotics if there is any worsening of the wound as there are no oral antibiotics available for the infection detected. I called [facility] in [place] [phone] and gave information to Yolande. Nursing will call back if they have any questions. Milena from [facility] called back to let us know the EMAIL MARKETING PROCESSOR changed his abx. Doxy stopped and started Keflex 250mg po 4 times daily till 09-26-24. RS notified by EMELIA PER RS: Neither of his bacteria are sensitive to Keflex. I called Milena at [facility]- she reports that patient did not have any problems with the Doxy and she will put him back on the Doxy x7 days and inform the EMAIL MARKETING PROCESSOR at the [facility]. documented in this encounter [facility] 09-16-[address] [facility] 09-16-2024 History of Presen t illness Narrative Images from the original note were not included. INFECTIOUS DISEASE WOUND CENTER NOTE Patient Name: Mitul Oakes Date: 09/16/2024 ASSESSMENT: Pressure/trauma related callus and wound on the left second toe Cellulitis/wound infection of the left second toe Osteomyelitis of great toe of left foot s/p amputation CAD (coronary artery disease) LEFT hallux wound to level of BONE LEFT dorsal foot wound to level of SUBCUTANEUS tissue LEFT foot cellulitis PVD ==> vascular consult Anxiety Depression COPD (chronic obstructive pulmonary disease) (HCC) History of DVT (deep vein thrombosis) Type 2 diabetes mellitus (HCC) Hx Right BKA PLAN: Wound cultures from the left second toe Start empiric doxycycline Referred to podiatry Dr. Rubin for wound care and pressure needs needs Use Mesalt dressing after vashe cleaning daily till seen by podiatry Monitor for signs of any worsening infection and call if these occur. Follow-up with infectious disease at the wound center in 4 weeks INTERVAL HISTORY: ROS done with pt and negative unless stated. The patient has been doing well after the hallux amputation but now has developed soreness and pain associated with associated with formation of a callus on the wound on the left second toe. He denies any fevers or chills MEDICATIONS: potassium chloride SR (MICRO-K) 10 mEq CR capsule Take 10 mEq by mouth once daily. pantoprazole DR (PROTONIX) 40 mg tablet Take 40 mg by mouth two times a day. sodium chlor-hypochlorous acid (VASHE) 0.033 % irsl Irrigate as instructed as directed. With each wound care dressing change doxycycline hyclate (VIBRAMYCIN) 100 mg capsule Take 100 mg by mouth two times a day. ondansetron (ZOFRAN) 4 mg tablet Take 4 mg by mouth every 8 hours as needed for nausea/vomiting. vancomycin 500 mg/100 mL IVPB Inject 500 mg intravenously every 12 hours. Per family - not on Aug but should go through 06/27/2024 (Patient not taking: Reported on 07/10/2024) ertapenem sodium (ERTAPENEM INTRAVENOUS) Inject 1 g intravenously once daily. Per family should stop 06/28/2024 (Patient not taking: Reported on 07/10/2024) oxyCODONE IR (ROXICODONE) 30 mg immediate release tablet Take 30 mg by mouth every 6 hours as needed for pain. aspirin, enteric coated (ASPIRIN, ENTERIC COATED) 81 mg EC tablet Take 81 mg by mouth once daily. atorvastatin (LIPITOR) 80 mg tablet Take 1 tablet by mouth once daily. ektzqahsid-dhdkeijn-fhjpzyklxa (BREZTRI) 160-9-4.8 mcg/actuation HFA aerosol inhaler Inhale 2 Puffs as instructed two times a day. buPROPion XL (WELLBUTRIN XL) 150 mg 24 hr tablet Take 1 tablet by mouth every morning. insulin glargine-yfgn (SEMGLEE) 100 unit/mL (3 mL) insulin pen Inject 25 Units subcutaneously two times a day. isosorbide mononitrate ER (IMDUR) 30 mg 24 hr tablet Take 30 mg by mouth. Pregabalin (LYRICA) 200 mg capsule Take 1 capsule by mouth three times a day. rivaroxaban (XARELTO) 2.5 mg tablet Take 2.5 mg by mouth two times a day. semaglutide (OZEMPIC) 2 mg/dose (8 mg/3 mL) pen injector Inject 2 mg subcutaneously one time a week. spironolactone (ALDACTONE) 25 mg tablet Take 0.5 tablets by mouth once daily. torsemide (DEMADEX) 20 mg tablet Take 1 tablet by mouth every morning. [place]-3 Fatty Acids-Vitamin E (FISH OIL) 1,000 mg cap Take 1 capsule by mouth. (Patient not taking: Reported on 07/25/2024) carvedilol (COREG) 25 mg tablet Take 25 mg by mouth twice daily with meals. vitamin D3-vitamin K2, MK4, 1,000-100 unit-mcg tab Take by mouth. PHYSICAL EXAM: Vital signs: stable, afeb General: alert, oriented, NAD Lungs: bilaterally clear to auscultation Heart: regular rate and rhythm Abdomen: soft, non tender, non distended, BS+ Extremities: no swollen joints Skin: no rash Callus of the left second toe with wound with granulated base with minimal surrounding erythema and some warmth. Mild tenderness present. No fluctuation Lab data: reviewed WBC (k/uL) Date Value 07/02/2024 9.45 06/06/2024 10.37 06/05/2024 9.31 Hemoglobin (g/dL) Date Value 07/02/2024 13.9 06/06/2024 11.8 06/05/2024 12.6 INR (no units) Date Value 05/23/2024 1.1 Sodium (mmol/L) Date Value 07/02/2024 137 06/06/2024 140 06/05/2024 140 Potassium (mmol/L) Date Value 07/02/2024 3.8 06/06/2024 4.2 06/05/2024 4.0 CO2 (mmol/L) Date Value 07/02/2024 26 06/06/2024 28 06/05/2024 28 BUN (mg/dL) Date Value 07/02/2024 10 06/06/2024 15 06/05/2024 15 Creatinine (mg/dL) Date Value 07/02/2024 1.14 06/06/2024 1.03 06/05/2024 1.15 AST Date Value 07/02/2024 23 U/L 05/24/2024 18 U/L 05/23/2024 Comment: Unable to assay due to interference from hemolysis. Suggest reorder as clinically indicated. ALT (U/L) Date Value 07/02/2024 26 05/24/2024 12 05/23/2024 13 Bilirubin, Total (mg/dL) Date Value 07/02/2024 0.4 05/24/2024 0.6 05/23/2024 0.6 Alkaline Phosphatase (U/L) Date Value 07/02/2024 146 05/24/2024 105 05/23/2024 122 Sed Rate, Westergren (mm/hr) Date Value 05/24/2024 15 Sepsis Lactate (mmol/L) Date Value 07/02/2024 1.8 07/02/2024 2.8 05/23/2024 1.6 Vancomycin (ug/mL) Date Value 06/06/2024 14.8 06/02/2024 16.9 05/31/2024 21.9 05/28/2024 16.5 05/26/2024 14.3 05/25/2024 29.1 Microbiology data: reviewed Imaging data: reviewed Jeanne Whitehead MD Pager: Nursing Documentation Pertinent Medical History: DM II, HIT, Right BKA, Sleep Apnea, COPD, AAA, PVD, HTN, CAD Wound Etiology according to patient: Wound on the Left lower Extremity with Surgery Jun 05, 2024 Patient arrived via: [facility]/Nursing Facility: Lives at [facility] Consent captured for debridement per Dr. Brandon Rubin and catarino until December 2024 Special Instructions: Self transfers Anticoagulant Therapy: ASA & Xarelto Living Situation (ie... 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 Provider seeing patient: Brandon Rubin DPM & Jeanne Whitehead MD Wounds 1, 2, 3, 4, 5 previously closed WOUND ASSESSMENT: Refer to Provider's Wound Assessment Note VASCULAR ASSESSMENT BY PROVIDER: CHF History: denies Smoking: quit 1.5 years after smoking 50 years Education: EDEMA: Right foot: BKA Right calf: N/A Left foot: 4+ Left Calf: 4+ MEASUREMENTS: in CM Right Calf: N/A Right Ankle: BKA Left Calf: 40.0 Left Ankle: 28.0 Length: 47.0 cm WOUND PHOTOGRAPHY: Yes; Caden date taken 09/16/2024 DEBRIDEMENT PROCEDURE BY PROVIDER: Anesthetic Used: n/a Wound # Other procedure: Specimen collected: WOUND TREATMENT PER MD ORDER: Wounds cleansed by mechanical debridement to allow provider to visualize wound base WOUND # 6 LOCATION: Left Plantar 2nd Toe (Started 09/11/2024 approximately) L: 0.4 cm x W: 0.5 cm x D: 0.2 cm Post Debridement Measurements: L: cm x W: cm x D: cm Cleansed with: Vashe Applied to carmita-wound skin: skin prep Applied to wound bed: Mesalt Covered and secured with: 2x2 Allevyn Other: AOC: Right Stump Lateral-Distal end of stump (07/15/24) COMPRESSION: Awaiting PVR results from vascular LISA WRAP/[employer] services dean: Foot is warm and pink before and after application. It was demonstrated to the patient how to check for adequate circulation. Patient voices understanding. If circulation becomes compromised by a change in color, increased pain, numbness or tingling to the area, the patient knows to remove the compression and elevate the leg above the heart. DME: N/A, pt resides in a facility SPECIAL NEEDS: Coordination of care - AVS sent to [facility] via [facility] Emotional support N/A OR set-up N/A Steno Pool Supervisor N/A Incontinence needs N/A DISCHARGED in stable condition to: Wheelchair with daughter PLAN/ORDERS: - Return to the [facility] for a follow-up with heavy machinery operator Dr. Rubin as soon as possible. - Follow-up in the wound center to see infectious disease specialist Dr. Whitehead in - 4 weeks - Please do not trim your own toe nails - Being Diabetic - Podiatry should be managing nail care - Continue aggressive nutritional support to assist in wound healing, focusing heavily on increasing protein intake. Try to get about 100 g of protein per day to promote wound healing. Look into supplementing your meals with protein shakes. Do NOT skip meals! - Please follow-up with your PCP or nurse aide about your elevated blood pressure readings. - If you have any questions or concerns that cannot be answered with the following information, please follow the instructions listed above on how to contact the wound center. Rx: Doxycycline sent to pharmacy EDUCATION: The patient/family was instructed how to cleanse the wound(s). Visual demonstration on how to apply the dressing with teach back method. Signs & symptoms of infection were reviewed: Increased redness, swelling, pain, green/yellow drainage, fever and/or chills would all need to be evaluated by a Physician. Patient received typed home-going wound care instructions and has expressed intent to comply. Education performed regarding lymphedema/edema: Elevation of extremity above the heart for 30 minutes three times daily and as needed Exercise such as writing the ABC's with your toes in the air, walking and/or calf pumps Wearing compression as ordered by provider Diet controlling of sodium as instructed by provider Use of medication to help control edema. UNIVERSAL PROTOCOL / SAFETY CHECKLIST Procedure to be Performed: Sharp Serial Debridement of Left Foot N/A Current HBOT Status: Active or Complete - see screening below WOUND CENTER HYPERBARIC OXYGEN THERAPY SCREENING 1. Is the patient diabetic? (If No, skip to question 5) Yes 2. Does the patient have a lower extremity wound? Yes 3. Is there exposed/involved tendon or bone? No 4. Has the wound been present for 30 days? Yes If Yes to ALL questions above, consult the Hyperbaric Center 5. Has the patient been diagnosed with osteomyelitis? No 6. Has the patient had a previous skin graft or flap at the wound? No 7. Has the patient had or been offered vascular intervention/evaluation? No 8. Does the patient have a wound at an amputation site? No 9. Has the patient had radiation therapy at the site of the problem? No If Yes to ANY of questions 5-9, consult the Hyperbaric Center documented in this encounter [facility] 09-16-2024 Instructions Sharri Arciniega LPN - 09/16/2024 2:00 PM EDT WOUND CARE INSTRUCTIONS- Mitullyly Oakes Wound Location: Left 2nd toe plantar [facility]: - Wash your hands with soap and water before and after wound care. - Gather all supplies needed. - Moisten a 4x4 gauze with a few drops of Vashe and allow to soak on the wound bed for 5-10 minutes. Remove and pat dry with another clean 4x4 gauze. Left 2nd toe - Cut/tear a piece of Mesalt packing strip. Apply directly to the wound base. - Cover with a 2x2 Allevyn. - Change dressing DAILY and as needed to maintain a clean, dry, & intact dressing. To give your wound the best chance to heal: - Eat three balanced meals daily focusing on the protein - Control swelling by elevating the extremity above your heart - Control your blood sugar. Keep blood sugar less than 200 - Complete your wound care instructions - Vitamin C 500 mg twice daily - Multiple Vitamin Daily - Drink a protein shake daily - premiere shakes for non-diabetic patients Premiere Clear or Glucerna for Diabetic patients and Nepro for Chronic Kidney Disease patients. - Smoking decreases the amount of oxygen delivered to tissue and can impair wound healing and/or increased risk of infection Report any of the following changes [phone] or go to the Emergency Department: Fever or chills Increased drainage Green or yellow drainage Foul odor Increased pain Hardness around the wound Redness, warmth or swelling of the surrounding tissue Color change to the wound Evenings / Weekends / Holidays If you call the wound center at the phone number provided above, please leave a detailed message that includes your full name, birthday, and phone number. We are seeing patients during the day, so we will return your call within a 24-48 hr period in the order your call was received. There is not an on-call provider assigned to the wound center. If you have an emergency that needs to be addressed, please go to an Urgent Care or Emergency Room. Thank you for your cooperation and understanding. If you are feeling ill, please call to reschedule your appointment. If you believe your illness to be wound related, call and leave a message using the directions above describing your symptoms. If you cannot wait 24-48 hrs for a callback, please get evaluated in the nearest emergency department. PLAN/ORDERS: - Return to the [facility] for a follow-up with heavy machinery operator Dr. Rubin as soon as possible. - Follow-up in the wound center to see infectious disease specialist Dr. Whitehead in - 4 weeks - Please do not trim your own toe nails - Being Diabetic - Podiatry should be managing nail care - Continue aggressive nutritional support to assist in wound healing, focusing heavily on increasing protein intake. Try to get about 100 g of protein per day to promote wound healing. Look into supplementing your meals with protein shakes. Do NOT skip meals! - Please follow-up with your PCP or nurse aide about your elevated blood pressure readings. - If you have any questions or concerns that cannot be answered with the following information, please follow the instructions listed above on how to contact the wound center. Rx: Doxycycline sent to pharmacy Dr. Jeanne Whitehead MD/aa/fm documented in this encounter [facility] 09-16-[address] [facility] 07-25-2024 History of Presen t illness Narrative Images from the original note were not included. [facility] DEPARTMENT OF VASCULAR SURGERY OUTPATIENT VISIT DATE July 25, 2024 OUTPATIENT VISIT TYPE ESTABLISHED SERVICE DATE: 07/25/2024 SERVICE TIME: 11:32 AM PRIMARY CARE PHYSICIAN: [facility] HISTORY OF PRESENT ILLNESS: Mr. Oakes is a 68 year old male who presents today for a vascular surgery follow-up visit for peripheral arterial disease. He has a history of angiogram with Dr. Lucas in May for left toe wound He had balloon angioplasty of distal left superficial femoral artery with 5x60mm mustang balloon and 6x80mm DCB (Inpact) at [facility] for SFA occlusion noted on CTA. 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 He continues to follow with [facility]. 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 No past medical history on file. PAST SURGICAL HISTORY Procedure Laterality Date APPENDECTOMY HX 83 COLSC FLX W/RMVL OF TUMOR POLYP LESION SNARE TQ 06/21/2015 SOCIAL HISTORY Social History Tobacco Use Smoking status: Heavy Smoker Current packs/day: 3.00 Average packs/day: 3.0 packs/day for 49.2 years (147.6 ttl pk-yrs) Types: Cigarettes Start date: 05/10/1975 MEDICATIONS: potassium chloride SR (MICRO-K) 10 mEq CR capsule Take 10 mEq by mouth once daily. pantoprazole DR (PROTONIX) 40 mg tablet Take 40 mg by mouth two times a day. sodium chlor-hypochlorous acid (VASHE) 0.033 % irsl Irrigate as instructed as directed. With each wound care dressing change doxycycline hyclate (VIBRAMYCIN) 100 mg capsule Take 100 mg by mouth two times a day. ondansetron (ZOFRAN) 4 mg tablet Take 4 mg by mouth every 8 hours as needed for nausea/vomiting. vancomycin 500 mg/100 mL IVPB Inject 500 mg intravenously every 12 hours. Per family - not on Aug but should go through 06/27/2024 (Patient not taking: Reported on 07/10/2024) ertapenem sodium (ERTAPENEM INTRAVENOUS) Inject 1 g intravenously once daily. Per family should stop 06/28/2024 (Patient not taking: Reported on 07/10/2024) oxyCODONE IR (ROXICODONE) 30 mg immediate release tablet Take 30 mg by mouth every 6 hours as needed for pain. aspirin, enteric coated (ASPIRIN, ENTERIC COATED) 81 mg EC tablet Take 81 mg by mouth once daily. atorvastatin (LIPITOR) 80 mg tablet Take 1 tablet by mouth once daily. gwonwhfiks-yadsjpqk-zbfgvuganc (BREZTRI) 160-9-4.8 mcg/actuation HFA aerosol inhaler Inhale 2 Puffs as instructed two times a day. buPROPion XL (WELLBUTRIN XL) 150 mg 24 hr tablet Take 1 tablet by mouth every morning. insulin glargine-yfgn (SEMGLEE) 100 unit/mL (3 mL) insulin pen Inject 25 Units subcutaneously two times a day. isosorbide mononitrate ER (IMDUR) 30 mg 24 hr tablet Take 30 mg by mouth. Pregabalin (LYRICA) 200 mg capsule Take 1 capsule by mouth three times a day. rivaroxaban (XARELTO) 2.5 mg tablet Take 2.5 mg by mouth two times a day. semaglutide (OZEMPIC) 2 mg/dose (8 mg/3 mL) pen injector Inject 2 mg subcutaneously one time a week. spironolactone (ALDACTONE) 25 mg tablet Take 0.5 tablets by mouth once daily. torsemide (DEMADEX) 20 mg tablet Take 1 tablet by mouth every morning. [place]-3 Fatty Acids-Vitamin E (FISH OIL) 1,000 mg cap Take 1 capsule by mouth. carvedilol (COREG) 25 mg tablet Take 25 mg by mouth twice daily with meals. vitamin D3-vitamin K2, MK4, 1,000-100 unit-mcg tab Take by mouth. ALLERGIES: ALLERGIES Allergen Reactions Heparin Other: See Comments HIIT [facility]. 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, caused right BKA Amitryptyline [Justin* Itching Per patient PHYSICAL EXAM: There were no vitals taken for this visit. General: no distress Ext- right below knee amputation- healed wounds and incisions, tender laterally to touch, no erythema noted; left leg great toe amputation site healed, dorsal foot wound- collagen in wound base, distal second toe tip dry Left calf measurement- 44cm Diagnostic tests reviewed for today's visit: Most recent labs Most recent imaging PVRs- L-0.82, mild disease at rest ([id number] Arterial Duplex-LEFT SIDE External iliac artery, Common femoral artery, Profunda femoral artery, Popliteal artery and Tibioperoneal trunk : plaque noted without evidence of hemodynamically significant stenosis . Superficial femoral artery proximal thigh : 50-99% stenosis . IMPRESSION: Mr. Oakes is a 68 year old male with peripheral arterial disease s/p SFA angioplasty for occlusion . PLAN and RECOMMENDATIONS: Continue current medications Continue anitplatelet agent and statin Follow up in 6 months with repeat imaging Ok for size E tubigrip SIGNATURE: Dari Esparza DO PATIENT NAME: Mitul Oakes DATE: July 25, 2024 TIME: 11:32 AM documented in this encounter [facility] 07-25-2024 Note HNO ID: [id number] Author: DARI ESPARZA DO Service: ? Author Type: Physician Type: Progress Notes Filed: 07/25/2024 12:15 Note Text: [facility] DEPARTMENT OF VASCULAR SURGERY OUTPATIENT VISIT DATE July 25, 2024 OUTPATIENT VISIT TYPE ESTABLISHED SERVICE DATE: 07/25/2024 SERVICE TIME: 11:32 AM [facility] HISTORY OF PRESENT ILLNESS: Mr. Oakes is a 68 year old male who presents today for a vascular surgery follow-up visit for peripheral arterial disease. He has a history of angiogram with Dr. Lucas in May for left toe wound He had balloon angioplasty of distal left superficial femoral artery with 5x60mm mustang balloon and 6x80mm DCB (Inpact) at [facility] for SFA occlusion noted on CTA. 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 He continues to follow with [facility]. 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 No past medical history on file. PAST SURGICAL HISTORY Procedure Laterality Date APPENDECTOMY HX 83 COLSC FLX W/RMVL OF TUMOR POLYP LESION SNARE TQ 06/21/2015 SOCIAL HISTORY Social History Tobacco Use Smoking status: Heavy Smoker Current packs/day: 3.00 Average packs/day: 3.0 packs/day for 49.2 years (147.6 ttl pk-yrs) Types: Cigarettes Start date: 05/10/1975 MEDICATIONS: potassium chloride SR (MICRO-K) 10 mEq CR capsule Take 10 mEq by mouth once daily. pantoprazole DR (PROTONIX) 40 mg tablet Take 40 mg by mouth two times a day. sodium chlor-hypochlorous acid (VASHE) 0.033 % irsl Irrigate as instructed as directed. With each wound care dressing change doxycycline hyclate (VIBRAMYCIN) 100 mg capsule Take 100 mg by mouth two times a day. ondansetron (ZOFRAN) 4 mg tablet Take 4 mg by mouth every 8 hours as needed for nausea/vomiting. vancomycin 500 mg/100 mL IVPB Inject 500 mg intravenously every 12 hours. Per family - not on Aug but should go through 06/27/2024 (Patient not taking: Reported on 07/10/2024) ertapenem sodium (ERTAPENEM INTRAVENOUS) Inject 1 g intravenously once daily. Per family should stop 06/28/2024 (Patient not taking: Reported on 07/10/2024) oxyCODONE IR (ROXICODONE) 30 mg immediate release tablet Take 30 mg by mouth every 6 hours as needed for pain. aspirin, enteric coated (ASPIRIN, ENTERIC COATED) 81 mg EC tablet Take 81 mg by mouth once daily. atorvastatin (LIPITOR) 80 mg tablet Take 1 tablet by mouth once daily. vbzbxsslyy-scggdgbc-dplromhtrc (BREZTRI) 160-9-4.8 mcg/actuation HFA aerosol inhaler Inhale 2 Puffs as instructed two times a day. buPROPion XL (WELLBUTRIN XL) 150 mg 24 hr tablet Take 1 tablet by mouth every morning. insulin glargine-yfgn (SEMGLEE) 100 unit/mL (3 mL) insulin pen Inject 25 Units subcutaneously two times a day. isosorbide mononitrate ER (IMDUR) 30 mg 24 hr tablet Take 30 mg by mouth. Pregabalin (LYRICA) 200 mg capsule Take 1 capsule by mouth three times a day. rivaroxaban (XARELTO) 2.5 mg tablet Take 2.5 mg by mouth two times a day. semaglutide (OZEMPIC) 2 mg/dose (8 mg/3 mL) pen injector Inject 2 mg subcutaneously one time a week. spironolactone (ALDACTONE) 25 mg tablet Take 0.5 tablets by mouth once daily. torsemide (DEMADEX) 20 mg tablet Take 1 tablet by mouth every morning. [place]-3 Fatty Acids-Vitamin E (FISH OIL) 1,000 mg cap Take 1 capsule by mouth. carvedilol (COREG) 25 mg tablet Take 25 mg by mouth twice daily with meals. vitamin D3-vitamin K2, MK4, 1,000-100 unit-mcg tab Take by mouth. ALLERGIES: ALLERGIES Allergen Reactions Heparin Other: See Comments HIIT [facility] on 05/[facility]. 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, caused right BKA Amitryptyline [Justin* Itching Per patient PHYSICAL EXAM: There were no vitals taken for this visit. General: no distress Ext- right below knee amputation- healed wounds and incisions, tender laterally to touch, no erythema noted; left leg great toe amputation site healed, dorsal foot wound- collagen in wound base, distal second toe tip dry Left calf measurement- 44cm Diagnostic tests reviewed for today's visit: Most recent labs Most recent imaging PVRs- L-0.82, mild disease at rest (improved waveforms [facility]) Arterial Duplex-LEFT SIDE External iliac artery, Common femoral artery, Profunda femoral artery, Popliteal artery and Tibioperoneal trunk : plaque noted without evidence of hemodynamically significant stenosis . Superficial femoral artery proximal thigh : 50-99% stenosis . IMPRESSION: Mr. Oakes is a 68 year old male with peripheral arterial disease s/p SFA angioplasty for occlusion . PLAN and RECOMMENDATIONS: Continue current medications C (more content not included)... [facility] 07-15-[address] [facility] 07-15-2024 History of Presen t illness Narrative INFECTIOUS DISEASE WOUND CENTER NOTE Patient Name: Mitul Oakes Date: 07/15/2024 ASSESSMENT: Osteomyelitis of great toe of left foot (SP left foot I&D, wound debridement, wound vac application and bone biopsy (DOS 05/26/24). Proximal cx positive for SCN x 2 and C parapsilosis. Went again to OR and underwent LEFT great toe amp, bone biopsy 1st metatarsal LEFT, I&D hematoma LEFT dorsal foot 06/05 CAD (coronary artery disease) LEFT hallux wound to level of BONE LEFT dorsal foot wound to level of SUBCUTANEUS tissue LEFT foot cellulitis PVD ==> vascular consult Anxiety Depression COPD (chronic obstructive pulmonary disease) (HCC) History of DVT (deep vein thrombosis) Type 2 diabetes mellitus (HCC) Hx Right BKA PLAN: Completed IV vancomycin and ertapenem Creatinine appears to have recovered Leg swelling may be the beginning of cellulitis versus fluid overload. Reviewed PVR and ultrasound of the leg and will start on Tubigrip's. Discussed with vascular surgery regarding feasibility of using compression in the situation Start oral doxycycline for 10 days Follow-up with infectious disease in the wound center in 6 weeks INTERVAL HISTORY: ROS done with pt and negative unless stated. Patient woke up with increasing swelling in the left foot. No fevers or chills. He has been off antibiotics and appears to have been doing well till this morning. He is unable to use any compression pending PVRs and leg ultrasound which are available at this time. MEDICATIONS: potassium chloride SR (MICRO-K) 10 mEq CR capsule Take 10 mEq by mouth once daily. pantoprazole DR (PROTONIX) 40 mg tablet Take 40 mg by mouth two times a day. sodium chlor-hypochlorous acid (VASHE) 0.033 % irsl Irrigate as instructed as directed. With each wound care dressing change doxycycline hyclate (VIBRAMYCIN) 100 mg capsule Take 100 mg by mouth two times a day. ondansetron (ZOFRAN) 4 mg tablet Take 4 mg by mouth every 8 hours as needed for nausea/vomiting. oxyCODONE IR (ROXICODONE) 30 mg immediate release tablet Take 30 mg by mouth every 6 hours as needed for pain. aspirin, enteric coated (ASPIRIN, ENTERIC COATED) 81 mg EC tablet Take 81 mg by mouth once daily. atorvastatin (LIPITOR) 80 mg tablet Take 1 tablet by mouth once daily. nkxeqmxrus-rjefyvfp-hokgzstxey (BREZTRI) 160-9-4.8 mcg/actuation HFA aerosol inhaler Inhale 2 Puffs as instructed two times a day. buPROPion XL (WELLBUTRIN XL) 150 mg 24 hr tablet Take 1 tablet by mouth every morning. insulin glargine-yfgn (SEMGLEE) 100 unit/mL (3 mL) insulin pen Inject 25 Units subcutaneously two times a day. isosorbide mononitrate ER (IMDUR) 30 mg 24 hr tablet Take 30 mg by mouth. Pregabalin (LYRICA) 200 mg capsule Take 1 capsule by mouth three times a day. rivaroxaban (XARELTO) 2.5 mg tablet Take 2.5 mg by mouth two times a day. semaglutide (OZEMPIC) 2 mg/dose (8 mg/3 mL) pen injector Inject 2 mg subcutaneously one time a week. spironolactone (ALDACTONE) 25 mg tablet Take 0.5 tablets by mouth once daily. torsemide (DEMADEX) 20 mg tablet Take 1 tablet by mouth every morning. [place]-3 Fatty Acids-Vitamin E (FISH OIL) 1,000 mg cap Take 1 capsule by mouth. carvedilol (COREG) 25 mg tablet Take 25 mg by mouth twice daily with meals. vitamin D3-vitamin K2, MK4, 1,000-100 unit-mcg tab Take by mouth. vancomycin 500 mg/100 mL IVPB Inject 500 mg intravenously every 12 hours. Per family - not on Aug but should go through 06/27/2024 (Patient not taking: Reported on 07/10/2024) ertapenem sodium (ERTAPENEM INTRAVENOUS) Inject 1 g intravenously once daily. Per family should stop 06/28/2024 (Patient not taking: Reported on 07/10/2024) PHYSICAL EXAM: Vital signs: stable, afeb General: alert, oriented, NAD Lungs: bilaterally clear to auscultation Heart: regular rate and rhythm Abdomen: soft, non tender, non distended, BS+ Extremities: no swollen joints Skin: no rash More leg swelling however no warmth and only mild erythema Lab data: reviewed WBC (k/uL) Date Value 07/02/2024 9.45 06/06/2024 10.37 06/05/2024 9.31 Hemoglobin (g/dL) Date Value 07/02/2024 13.9 06/06/2024 11.8 06/05/2024 12.6 INR (no units) Date Value 05/23/2024 1.1 Sodium (mmol/L) Date Value 07/02/2024 137 06/06/2024 140 06/05/2024 140 Potassium (mmol/L) Date Value 07/02/2024 3.8 06/06/2024 4.2 06/05/2024 4.0 CO2 (mmol/L) Date Value 07/02/2024 26 06/06/2024 28 06/05/2024 28 BUN (mg/dL) Date Value 07/02/2024 10 06/06/2024 15 06/05/2024 15 Creatinine (mg/dL) Date Value 07/02/2024 1.14 06/06/2024 1.03 06/05/2024 1.15 AST Date Value 07/02/2024 23 U/L 05/24/2024 18 U/L 05/23/2024 Comment: Unable to assay due to interference from hemolysis. Suggest reorder as clinically indicated. ALT (U/L) Date Value 07/02/2024 26 05/24/2024 12 05/23/2024 13 Bilirubin, Total (mg/dL) Date Value 07/02/2024 0.4 05/24/2024 0.6 05/23/2024 0.6 Alkaline Phosphatase (U/L) Date Value 07/02/2024 146 05/24/2024 105 05/23/2024 122 Sed Rate, Westergren (mm/hr) Date Value 05/24/2024 15 Sepsis Lactate (mmol/L) Date Value 07/02/2024 1.8 07/02/2024 2.8 05/23/2024 1.6 Vancomycin (ug/mL) Date Value 06/06/2024 14.8 06/02/2024 16.9 05/31/2024 21.9 05/28/2024 16.5 05/26/2024 14.3 05/25/2024 29.1 Microbiology data: reviewed Imaging data: reviewed Jeanne Whitehead MD Pager: Nursing Documentation Pertinent Medical History: DM II, HIT, Right BKA, Sleep Apnea, COPD, AAA, PVD, HTN, CAD Wound Etiology according to patient: Wound on the Left lower Extremity with Surgery Jun 05, 2024 Patient arrived via: Wheelchair with family from facility([facility]) Home Care Company/Nursing Facility: Lives at [facility] Consent captured for debridement per Dr. Brandon Crowell until December 2024 Special Instructions: Self transfers Anticoagulant Therapy: ASA & Xarelto Living Situation (ie... 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 Provider seeing patient: Brandon Rubin DPM & Jeanne Whitehead MD Wounds 1, 3,4 previously closed WOUND ASSESSMENT: Refer to Provider's Wound Assessment Note VASCULAR ASSESSMENT BY PROVIDER: CHF History: denies Smoking: quit 1.5 years after smoking 50 years Education: Right Upper Arm PICC line EDEMA: Right foot: BKA Right calf: N/A Left foot: 4+ Left Calf: 4+ MEASUREMENTS: in CM Right Calf: N/A Right Ankle: BKA Left Calf: 40.0 Left Ankle: 28.0 Length: 47.0 cm WOUND PHOTOGRAPHY: date taken 06/19/2024 DEBRIDEMENT PROCEDURE BY PROVIDER: Anesthetic Used: n/a Wound # Other procedure: Specimen collected: WOUND TREATMENT PER MD ORDER: Wounds cleansed by mechanical debridement to allow provider to visualize wound base WOUND # 2 - LOCATION: Left Dorsal Medial Foot - (Apr 2024 - trauma per patient) L: 0.7 cm x W: 1.5 cm x D: 0.5 cm Cleansed with: Vashe Applied to carmita-wound skin: Vaseline Applied to wound bed: NS, Promogran, Adaptic, & Calcium alginate Covered and secured with: 4x4 gauze, ABD pad, Kerlix, & tape [employer] dean E WOUND # 5 - LOCATION: Left 2nd Toe Nailbed - (May 2024) L: 0.7 cm x W: 1.1 cm x D:scabbed Cleansed with: Vashe Applied to carmita-wound skin: Vaseline Applied to wound bed: Adaptic Covered and secured with: 2x2 allevyn AOC: Right Stump Medial Posterior - (> 1 year 2023) L: 1.2 cm x W: 1.4 cm x D: scab Cleansed with: N/A Applied to carmita-wound skin: Skin prep Applied to wound bed: N/A Covered and secured with: 4x4 Excelsior SAP AOC: Right Stump Lateral-Distal end of stump (07/15/24) COMPRESSION: Awaiting PVR results from vascular LISA WRAP/[employer] dean: Foot is warm and pink before and after application. It was demonstrated to the patient how to check for adequate circulation. Patient voices understanding. If circulation becomes compromised by a change in color, increased pain, numbness or tingling to the area, the patient knows to remove the compression and elevate the leg above the heart. DME: N/A, pt resides in a facility SPECIAL NEEDS: Coordination of care - AVS sent to [facility] via [facility] Emotional support N/A OR set-up N/A Steno Pool Supervisor N/A Incontinence needs N/A DISCHARGED in stable condition to: Wheelchair with daughter PLAN/ORDERS: - Return to the [facility] for a follow-up with heavy machinery operator Dr. Rubin on July 30 at 10:30 am. - Follow-up in the wound center to see infectious disease specialist Dr. Whitehead in - 2 months - You have an appointment for vascular procedures, as well as to see vascular surgeon Dr. Grider on JuneJuly 25 at 11:30 am. - Please do not trim your own toe nails - Being Diabetic - Podiatry should be managing nail care - Continue aggressive nutritional support to assist in wound healing, focusing heavily on increasing protein intake. Try to get about 100 g of protein per day to promote wound healing. Look into supplementing your meals with protein shakes. Do NOT skip meals! - Please follow-up with your PCP or nurse aide about your elevated blood pressure readings. - If you have any questions or concerns that cannot be answered with the following information, please follow the instructions listed above on how to contact the wound center. Rx: Doxycycline x 10 days EDUCATION: The patient/family was instructed how to cleanse the wound(s). Visual demonstration on how to apply the dressing with teach back method. Signs & symptoms of infection were reviewed: Increased redness, swelling, pain, green/yellow drainage, fever and/or chills would all need to be evaluated by a Physician. Patient received typed home-going wound care instructions and has expressed intent to comply. Education performed regarding lymphedema/edema: Elevation of extremity above the heart for 30 minutes three times daily and as needed Exercise such as writing the ABC's with your toes in the air, walking and/or calf pumps Wearing compression as ordered by provider Diet controlling of sodium as instructed by provider Use of medication to help control edema. UNIVERSAL PROTOCOL / SAFETY CHECKLIST Procedure to be Performed: Sharp Serial Debridement of Left Foot N/A Current HBOT Status: Active or Complete - see screening below WOUND CENTER HYPERBARIC OXYGEN THERAPY SCREENING 1. Is the patient diabetic? (If No, skip to question 5) Yes 2. Does the patient have a lower extremity wound? Yes 3. Is there exposed/involved tendon or bone? No 4. Has the wound been present for 30 days? Yes If Yes to ALL questions above, consult the Hyperbaric Center 5. Has the patient been diagnosed with osteomyelitis? No 6. Has the patient had a previous skin graft or flap at the wound? No 7. Has the patient had or been offered vascular intervention/evaluation? No 8. Does the patient have a wound at an amputation site? No 9. Has the patient had radiation therapy at the site of the problem? No If Yes to ANY of questions 5-9, consult the Hyperbaric Center documented in this encounter [facility] 07-15-[address] [facility] 07-15-2024 History of Presen t illness Narrative Date of Visit: 07/10/2024 CHIEF COMPLAINT: LEFT great toe amp check and LEFT dorsal foot wound OR 05/26/24 ADM 05/23/24 s/p LEFT great toe amp, debridement bone, bone biopsy 1st metatarsal, I&D dorsal foot hematoma (DOS 06/05/24) SURGERY 05/26/24: I&D, wound debridement, bone bx, application of wound vac. HISTORY OF PRESENT ILLNESS: patient presents s/p LEFT great toe amp from bad comminuted displaced fracture and LEFT dorsal foot I&D from hematoma. went to SNF and doing wound care there. he has been on abx, doxycycline for nausea. he has lots of anxiety today. denies N/V/F/C/SOB PHYSICAL EXAMINATION: Vascular Exam: DP pulses of the RIGHT and LEFT foot are +1/4 PT pulses of the RIGHT and LEFT foot are +1/4 CFT is within normal limits, less than 3s to all digits, both feet. Skin temperature from proximal to distal is warm to warm, both feet. Dermatologic Exam: LEFT anterior lower leg wound healed LEFT dorsal medial foot wound predebridement measures 0.5x1.2x0.3cm and post debridement measures 0.6x1.3x0.4cm with 60:40 granular fibrotic base, no surrounding callus, no erythema, no purulence, no probe to bone, no malodor, moderate serosanguinous drainage. Into level of SUBCUTANEOUS TISSUE, partial thickness LEFT hallux amp incision measures 8cm in length, no SOI. incision well coapted, minimal drainage noted. LEFT 2nd toenail bed predebridement measures 0.8x1x0.1cm and post debridement measures 0.9x1.1x0.1cm with 80:20 granular fibrotic base, no surrounding callus, no erythema, no purulence, no probe to bone, no malodor, mod serosanguinous drainage. Into level of SUBCUTANEOUS TISSUE, partial thickness RT posterior medial BKA stump area of concern measures 1x1.1cm with overlying hyperkeratotic tissue. deferred debridement of callus. stable. no drainage. LEFT dorsal central foot wound predebridement measures 0.3x0.9cm with serous blister and post debridement measures 0.4x1x0.1cm with 90:10 granular fibrotic base, no surrounding callus, no erythema, no purulence, no probe to bone, no malodor, moderate serosanguinous drainage. Into level of SUBCUTANEOUS TISSUE, partial thickness DIAGNOSIS: Open wound of left great toe, initial encounter Osteomyelitis of left foot, unspecified type Osteomyelitis of great toe of left foot CAD (coronary artery disease) Osteomyelitis of great toe of right foot Cellulitis of right foot Hx of deep venous thrombosis Type 2 diabetes mellitus Cellulitis of left foot Hematoma of left foot Ulcer of left foot with fat layer exposed PLAN AND TREATMENT: ASSESMENT & PLAN BL Foot and Ankle and Lower extremity Exam and Evaluation carried out with a treatment plan reviewed with the patient and findings discussed with patient including alternatives, benefits, complications and risks. PREVIOUS TESTS / IMAGING / X-RAY EXAM Reviewed previous tests 05/23/24 LEFT foot XR: osteomyelitis LEFT hallux w lytic changes and fragmentation 05/24/24 LEFT foot MRI: Marrow edema with fracture and comminution of the left great toe distal phalanx. OM cannot be accurately evaluated 2/2 fracture 05/24/24 Wound culture swab: Staph Epi and Staph haemolyticus 05/24/24 PVR/JACKELYN: left ankle AB 0.88 Bi phasic and monophasic wave forms on the left. BKA on right. 05/26/24 LT foot soft tissue OR CX: staph haemolyticus, staph epidermidis, yeast, final 05/26/24 LT foot bone cx: staph haemolyticus, staph epidermidis, gurpreet parapsilosis, final 08/06/23 LEFT 1st met bone cx: skin mickey contaminant 06/05/24 LEFT dorsal foot post lavage: staph epi had left great toe amp and 1st met bone biopsy with dorsal foot hematoma I&D. cont abx per ID. no SOI. both left great toe amp and left dorsal foot looks great. for LEFT dorsal medial foot surgical wound from hematoma doing better LEFT 2nd toe nail bed and LEFT dorsal medial foot treated with sharp excisional debridement carried out of the wound with non selective sharp excisional debridement past the dermis into SUBCUTANEOUS level with use of curette and 15 scalpel blade. Devitalized tissue removed. We then flushed out the wound with wound wash sterile saline. Area numbed with lidocaine gel if sensate prior. LEFT hallux amp site stable. removed sutures today. will keep covered due to other wounds present Discussed importance in offloading, proper nutrition including blood sugar control and getting enough protein and vitamins, infection prevention, proper wound care in wound healing. Also discussed detrimental impact of smoking on healing. Reviewed proper wound care with patient. To not soak wound but to clean appropriately. To watch for signs of infection both local and systemic. These were reviewed with the patient. If seen to contact office or go to ED. To continue wound care consisting of washing the wound with soap and water or vashe solution. dressing care as below Left Dorsal foot - Medial (06/05/24 - surgical hemtoma removal) ? Cleansed with: vashe' ? Applied to carmita-wound skin: skin prep ? Applied to wound bed: 06/21" iodoform packing ? Covered and secured with: 4x4's, abd pad, kerlix wrap. tape ? Other: Left Hallux Amp Site (06/05/2024) ? Cleansed with: vashe ? Applied to carmita-wound skin: betadine ? Covered and secured with: 4x4's, abd pad, kerlix wrap. Tap ? Other: WOUND # 5 LOCATION: Left 2nd Toe Nailbed (May 2024 - patient cut with clippers) ? Cleansed with: vashe' ? Applied to carmita-wound skin: ? Applied to wound bed: adaptic, alginate ? Covered and secured with: 2x2 allevyn ? Other: AOC: Right Stump Medial Posterior ( > 1 year 2023) ? Cleanse with: vashe ? Covered and secured with: 4x4 excel sap AOC: Right Lateral BKA: ? Cleanse with: vashe ? Covered and secured with: 6x7 excel sap Weight bearing status: PWB LEFT may transfer with heel, avoid forefoot pressure. RLE WBAT. we discussed his right stump wounds to avoid pressure to posterior lateral aspect. keep covered with excel sap. cover with excel sap. change every other day Patient was revascularized 06/02/24 at [facility]. Follow up with vascular as scheduled next week no SOI today to left foot. doing well and healing. he is at risk for 2nd toe amp in future LEFT. his wound is not showing SOI today but given contracture, he is at risk for developing. keep wrapped as directed above. Follow up in 3-4 weeks for LEFT hallux amp suture removal and LEFT foot wounds check Open wound of left great toe, initial encounter 893.0 S91.102A Diagnosis Notes Drag & Drop to change diagnosis order Osteomyelitis of left foot, unspecified type 730.27 M86.9 Diagnosis Notes Drag & Drop to change diagnosis order Osteomyelitis of great toe of left foot 730.27 M86.9 Diagnosis Notes Drag & Drop to change diagnosis order CAD (coronary artery disease) 414.00 I25.10 Diagnosis Notes Drag & Drop to change diagnosis order Osteomyelitis of great toe of right foot 730.27 M86.9 Diagnosis Notes Drag & Drop to change diagnosis order Cellulitis of right foot 682.7 L03.115 Diagnosis Notes Drag & Drop to change diagnosis order Hx of deep venous thrombosis V12.51 Z86.718 Diagnosis Notes Drag & Drop to change diagnosis order Type 2 diabetes mellitus 250.00 E11.9 Diagnosis Notes Drag & Drop to change diagnosis order Cellulitis of left foot 682.7 L03.116 Diagnosis Notes Drag & Drop to change diagnosis order Hematoma of left foot 924.20 S90.32XA Diagnosis Notes Drag & Drop to change diagnosis order Ulcer of left foot with fat layer exposed 707.15 L97.522 Nursing Documentation Pertinent Medical History: DM II, HIT, Right BKA, Sleep Apnea, COPD, AAA, PVD, HTN, CAD Wound Etiology according to patient: Wound on the Left lower Extremity with Surgery Jun 05, 2024 Patient arrived via: Wheelchair with family from facility([facility]) Home Care Company/Nursing Facility: Lives at [facility] Consent captured for debridement per Dr. Brandon Crowell until December 2024 Special Instructions: Self transfers Anticoagulant Therapy: ASA & Xarelto Living Situation (ie... 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 Provider seeing patient: Brandon Rubin DPM & Jeanne Whitehead MD WOUND ASSESSMENT: Refer to Provider's Wound Assessment Note VASCULAR ASSESSMENT BY PROVIDER: CHF History: denies Smoking: quit 1.5 years after smoking 50 years Education: Right Upper Arm PICC line EDEMA: Right foot: BKA Right calf: N/A Left foot: Firm, non-pitting Left Calf: 2+ MEASUREMENTS: in CM Right Calf: N/A Right Ankle: BKA Left Calf: 39.0 Left Ankle: 27.0 Length: 47.0 cm WOUND PHOTOGRAPHY: No, date taken 06/19/2024 DEBRIDEMENT PROCEDURE BY PROVIDER: Anesthetic Used: 2% Lidocaine applied per Malena Galvez RN Wound # 1, 2, 4, & 5 Other procedure: Specimen collected: WOUND TREATMENT PER MD ORDER: Wounds cleansed by mechanical debridement to allow provider to visualize wound base WOUND # 1 - LOCATION: Left Anterior Lower Leg CLOSED 07/10/24 WOUND # 2 - LOCATION: Left Dorsal Medial Foot - (Apr 2024 - trauma per patient) L: 0.6 cm x W: 1.3 cm x D: 0.4 cm Cleansed with: Vashe Applied to carmita-wound skin: Vaseline Applied to wound bed: NS, Promogran, Adaptic, & Calcium alginate Covered and secured with: 4x4 gauze, ABD pad, Kerlix, & tape WOUND # 3 - LOCATION: Left Dorsal Middle Foot - (06/19/24) CLOSED 06/24/24 & Remains closed 07/10/24 WOUND # 4 - LOCATION: Left Hallux Amp Site (05/2024) CLOSED 07/10/24 WOUND # 5 - LOCATION: Left 2nd Toe Nailbed - (May 2024) L: 0.9 cm x W: 1.1 cm x D: 0.1 cm Cleansed with: Vashe Applied to carmita-wound skin: Vaseline Applied to wound bed: Adaptic & Calcium alginate Covered and secured with: 2x2 allevyn AOC: Right Stump Medial Posterior - (> 1 year 2023) L: 1.0 cm x W: 1.1 cm x D: Callous Cleansed with: N/A Applied to carmita-wound skin: Skin prep Applied to wound bed: N/A Covered and secured with: 4x4 Excelsior SAP COMPRESSION: Awaiting PVR results from vascular LISA WRAP/SurePress/Tubi-library services dean: Foot is warm and pink before and after application. It was demonstrated to the patient how to check for adequate circulation. Patient voices understanding. If circulation becomes compromised by a change in color, increased pain, numbness or tingling to the area, the patient knows to remove the compression and elevate the leg above the heart. DME: N/A, pt resides in a facility SPECIAL NEEDS: Coordination of care - AVS sent to [facility] via [facility] Emotional support N/A OR set-up N/A Steno Pool Supervisor N/A Incontinence needs N/A DISCHARGED in stable condition to: Wheelchair with daughter PLAN/ORDERS: - Return to the [facility] for a follow-up with heavy machinery operator Dr. Rubin on July 30 at 10:30 am. - Follow-up in the wound center to see infectious disease specialist Dr. Whitehead on July 15 at 2:30 pm. - You have an appointment for vascular procedures, as well as to see vascular surgeon Dr. Grider on July 15 at 12:30 & 1:30 pm & July 25 at 11:30 am. - Infectious disease specialist Dr. Whitehead will be temporarily discontinuing the IV antibiotics until your kidney function labs have returned to normal. - Please do not trim your own toe nails - Being Diabetic - Podiatry should be managing nail care - Continue aggressive nutritional support to assist in wound healing, focusing heavily on increasing protein intake. Try to get about 100 g of protein per day to promote wound healing. Look into supplementing your meals with protein shakes. Do NOT skip meals! - Please follow-up with your PCP or nurse aide about your elevated blood pressure readings. - If you have any questions or concerns that cannot be answered with the following information, please follow the instructions listed above on how to contact the wound center. EDUCATION: The patient/family was instructed how to cleanse the wound(s). Visual demonstration on how to apply the dressing with teach back method. Signs & symptoms of infection were reviewed: Increased redness, swelling, pain, green/yellow drainage, fever and/or chills would all need to be evaluated by a Physician. Patient received typed home-going wound care instructions and has expressed intent to comply. Education performed regarding lymphedema/edema: Elevation of extremity above the heart for 30 minutes three times daily and as needed Exercise such as writing the ABC's with your toes in the air, walking and/or calf pumps Wearing compression as ordered by provider Diet controlling of sodium as instructed by provider Use of medication to help control edema. UNIVERSAL PROTOCOL / SAFETY CHECKLIST Procedure to be Performed: Sharp Serial Debridement of Left Foot Sign In: 1515 A Moment of CARE was completed. Personnel directly involved with the procedure wore the appropriate PPE (Personal Protective Equipment). Patient/Surrogate Stated/Verified: PATIENT VERIFIED(optional for EMERGENT procedures): Patient name, Date of , Relevant allergies, and The intended procedure Time Out Communication: 1520 Intended patient and procedure match the source documents. Consent documented and matches the intended procedure. No relevant labs, photos, and/or imaging studies were applicable for review. Sign Out: 1523 SIGN OUT (optional for EMERGENT procedures): No specimen collected. Current HBOT Status: Active or Complete - see screening below WOUND CENTER HYPERBARIC OXYGEN THERAPY SCREENING 1. Is the patient diabetic? (If No, skip to question 5) Yes 2. Does the patient have a lower extremity wound? Yes 3. Is there exposed/involved tendon or bone? No 4. Has the wound been present for 30 days? Yes If Yes to ALL questions above, consult the Hyperbaric Center 5. Has the patient been diagnosed with osteomyelitis? No 6. Has the patient had a previous skin graft or flap at the wound? No 7. Has the patient had or been offered vascular intervention/evaluation? No 8. Does the patient have a wound at an amputation site? No 9. Has the patient had radiation therapy at the site of the problem? No If Yes to ANY of questions 5-9, consult the Hyperbaric Center Ruth Atwood RN/SP documented in this encounter [facility] 07-15-2024 Instructions Kirsten Rahman RN - 07/15/2024 2:15 PM EST WOUND CARE INSTRUCTIONS- Mitul Oakes Wound Location: Left Lower Leg & Right BKA [facility]: - Wash your hands with soap and water before and after wound care. - Gather all supplies needed. - Moisten a 4x4 gauze with a few drops of Vashe and allow to soak on the wound bed for 5-10 minutes. Remove and pat dry with another clean 4x4 gauze. - [place] between all the toes with Betadine and allow to dry. Left Dorsal Foot - Cut/tear a piece of Sushila (hexagon package) and moisten with a few drops of normal saline or Vashe. Apply directly to the wound base. - Cut a single layer piece of Adaptic (oil emulsion) and apply overtop of sushila layer. - Cut a piece of Calcium Alginate (felt material) and apply to the adaptic layer. - Cover with a 4x4 gauze & ABD pad. - Secure dressing with Kerlix & tape (avoid taping the skin). - Change dressing DAILY and as needed to maintain a clean, dry, & intact dressing. - Elevate Left Foot as much as possible Apply size E Tubi-library services dean ON in the AM / OFF in the PM Left 2nd Toe Nailbed: Cut a single layer piece of Adaptic (oil emulsion) and apply overtop of sushila layer. - Cut a piece of Calcium Alginate (felt material) and apply to the adaptic layer. - Cover with a 4x4 gauze & ABD pad. - Secure dressing with Kerlix & tape (avoid taping the skin). - Change dressing DAILY and as needed to maintain a clean, dry, & intact dressing. Right BKA Medial Posterior / Right Lateral Distal End of Stump- - Pad and Protect every day - Cover with a 4x4 Excelsior SAP or equivalent silicone bordered bandage. - Change dressing Every Other Day and as needed to maintain a clean, dry, & intact dressing. - Wear elementary ell teacher while out of bed every day To give your wound the best chance to heal: - Eat three balanced meals daily focusing on the protein - Control swelling by elevating the extremity above your heart - Control your blood sugar. Keep blood sugar less than 200 - Complete your wound care instructions - Vitamin C 500 mg twice daily - Multiple Vitamin Daily - Drink a protein shake daily - premiere shakes for non-diabetic patients Premiere Clear or Glucerna for Diabetic patients and Nepro for Chronic Kidney Disease patients. - Smoking decreases the amount of oxygen delivered to tissue and can impair wound healing and/or increased risk of infection Report any of the following changes [phone] or go to the Emergency Department: Fever or chills Increased drainage Green or yellow drainage Foul odor Increased pain Hardness around the wound Redness, warmth or swelling of the surrounding tissue Color change to the wound Evenings / Weekends / Holidays If you call the wound center at the phone number provided above, please leave a detailed message that includes your full name, birthday, and phone number. We are seeing patients during the day, so we will return your call within a 24-48 hr period in the order your call was received. There is not an on-call provider assigned to the wound center. If you have an emergency that needs to be addressed, please go to an Urgent Care or Emergency Room. Thank you for your cooperation and understanding. If you are feeling ill, please call to reschedule your appointment. If you believe your illness to be wound related, call and leave a message using the directions above describing your symptoms. If you cannot wait 24-48 hrs for a callback, please get evaluated in the nearest emergency department. PLAN/ORDERS: - Return to [facility] for a follow-up with heavy machinery operator Dr. Rubin on July 30 at 10:30 am. - Follow-up in the wound center to see infectious disease specialist Dr. Whitehead in - 2 months - You have an appointment for vascular procedures, as well as to see vascular surgeon Dr. Grider on JuneJuly 25 at 11:30 am. - Please do not trim your own toe nails - Being Diabetic - Podiatry should be managing nail care - Continue aggressive nutritional support to assist in wound healing, focusing heavily on increasing protein intake. Try to get about 100 g of protein per day to promote wound healing. Look into supplementing your meals with protein shakes. Do NOT skip meals! - Please follow-up with your PCP or nurse aide about your elevated blood pressure readings. - If you have any questions or concerns that cannot be answered with the following information, please follow the instructions listed above on how to contact the wound center. Rx: Doxycycline x [address] Jeanne Whitehead MD/mitzi/clementina documented in this encounter [facility] 07-15-[address] [facility] 07-11-2024 Telephone encounter Note VERONICA Vázquez RN Nurse [facility] reports the patients foot is red and swollen and the patient voiced concern. The patient had been seen in the wound center 07/10/24. Encouraged to call Dr. Rubin at his office. Telephone number shared. [facility] 07-11-2024 Miscellaneous Notes VERONICA Vázquez RN Nurse [employer] [facility] reports the patients foot is red and swollen and the patient voiced concern. The patient had been seen in the wound center 07/10/24. Encouraged to call Dr. Rubin at his office. Telephone number shared. documented in this encounter [facility] 07-10-2024 Instructions Ruth Atwood RN - 07/10/2024 2:50 PM EST WOUND CARE INSTRUCTIONS- Mitul Oakes Wound Location: Left Lower Leg & Right BKA T[facility]: - Wash your hands with soap and water before and after wound care. - Gather all supplies needed. - Moisten a 4x4 gauze with a few drops of Vashe and allow to soak on the wound bed for 5-10 minutes. Remove and pat dry with another clean 4x4 gauze. - [place] between all the toes with Betadine and allow to dry. Left Dorsal Foot & Left 2nd Toe Nailbed: - Cut/tear a piece of Sushila (hexagon package) and moisten with a few drops of normal saline or Vashe. Apply directly to the wound base. - Cut a single layer piece of Adaptic (oil emulsion) and apply overtop of sushila layer. - Cut a piece of Calcium Alginate (felt material) and apply to the adaptic layer. - Cover with a 4x4 gauze & ABD pad. - Secure dressing with Kerlix & tape (avoid taping the skin). - Change dressing DAILY and as needed to maintain a clean, dry, & intact dressing. Right BKA Medial Posterior: - Cover with a 4x4 Excelsior SAP or equivalent silicone bordered bandage. - Change dressing Every Other Day and as needed to maintain a clean, dry, & intact dressing. To give your wound the best chance to heal: - Eat three balanced meals daily focusing on the protein - Control swelling by elevating the extremity above your heart - Control your blood sugar. Keep blood sugar less than 200 - Complete your wound care instructions - Vitamin C 500 mg twice daily - Multiple Vitamin Daily - Drink a protein shake daily - premiere shakes for non-diabetic patients Premiere Clear or Glucerna for Diabetic patients and Nepro for Chronic Kidney Disease patients. - Smoking decreases the amount of oxygen delivered to tissue and can impair wound healing and/or increased risk of infection Report any of the following changes [phone] or go to the Emergency Department: Fever or chills Increased drainage Green or yellow drainage Foul odor Increased pain Hardness around the wound Redness, warmth or swelling of the surrounding tissue Color change to the wound Evenings / Weekends / Holidays If you call the wound center at the phone number provided above, please leave a detailed message that includes your full name, birthday, and phone number. We are seeing patients during the day, so we will return your call within a 24-48 hr period in the order your call was received. There is not an on-call provider assigned to the wound center. If you have an emergency that needs to be addressed, please go to an Urgent Care or Emergency Room. Thank you for your cooperation and understanding. If you are feeling ill, please call to reschedule your appointment. If you believe your illness to be wound related, call and leave a message using the directions above describing your symptoms. If you cannot wait 24-48 hrs for a callback, please get evaluated in the nearest emergency department. PLAN/ORDERS - Return to [facility] for a follow-up with heavy machinery operator Dr. Rubin on July 30 at 10:30 am. - Follow-up in the wound center to see infectious disease specialist Dr. Whitehead on July 15 at 2:30 pm. - You have an appointment for vascular procedures, as well as to see vascular surgeon Dr. Grider on July 15 at 12:30 & 1:30 pm & July 25 at 11:30 am. - Infectious disease specialist Dr. Whitehead will be temporarily discontinuing the IV antibiotics until your kidney function labs have returned to normal. - Please do not trim your own toe nails - Being Diabetic - Podiatry should be managing nail care - Continue aggressive nutritional support to assist in wound healing, focusing heavily on increasing protein intake. Try to get about 100 g of protein per day to promote wound healing. Look into supplementing your meals with protein shakes. Do NOT skip meals! - Please follow-up with your PCP or nurse aide about your elevated blood pressure readings. - If you have any questions or concerns that cannot be answered with the following information, please follow the instructions listed above on how to contact the wound center. Brandon Rubin DPM/RITO/SP documented in this encounter [facility] 07-10-[address] [facility] 07-02-[address] [facility] 06-26-2024 Telephone encounter Note Jun 26 creat wnl at 0.97 The results were attached to the M drive Orders given to the nurseCatie, to remove the picc line and continue the Fluconazole until Jul 09. [facility] 06-26-2024 Miscellaneous Notes Jun 26 creat wnl at 0.97 The results were attached to the M drive Orders given to the nurseCatie, to remove the picc line and continue the Fluconazole until Jul 09. Jun 25 creat wnl at 1.12 The results were attached to the M drive To be repeated again and Sun Per [facility] note: Discontinue IV vancomycin and ertapenem today due to ALFIE Repeat creatinine daily for 3 days. Encourage IV fluid hydration. If creatinine is worsening, the patient may need to be admitted through the emergency room to the hospital for management of acute renal failure IV ceftriaxone was changed to ertapenem. Antibiotic stop date initially planned for 06/27/2024. But will stop ertapenem and vancomycin today due to ALFIE Continue fluconazole till 07/09/2024 VO given to Catie at [facility] to stop IV abx, encourage IV fluid hydration and repeat creat daily x3 days. They will fax results (if results worsening Catie aware that patient needs to go to ED) 1.6.25 labs reviewed and attached to M drive. Creat elevated 1.91 (0.94) Vanc T 11.6. Patient has appointment scheduled with RS tomorrow at [facility] Jun 19 labs reviewed, no changes Creat wnl at 0.90 Vanc trough wnl at 12.6 The tubes were taken to [facility] The results were attached to the M drive PER RS: Encourage hydration. Decrease vanco to 500 mg iv q12 after holding one dose. Repeat labs today and . Go to ED if creatinine jumps up into the 2s VO given to Geno at [facility] EM RS: 06-16 ABN LABS: WBC 11.4 (10.37) CREAT 1.32 (1.03) VANC T 20.1 (14.8) CURRENT TX PLAN: VANC 750MG IV Q12 ERTAPENEM 1GM IV Q24 FLUCONAZOLE 400MG PO DAILY. Please advise Summary: Med change new stop date VO given to Geno at [facility] VANC 750MG IV Q12 X14 DAYS STOP CEFTRIAXONE START ERTAPENEM 1G IV Q24 X14 DAYS CONTINUE FLUCONAZOLE 400MG PO DAILY TILL 07-09-24 PER RS: OK to extend antibiotics for two weeks. Also change Ceftriaxone to Ertapenem 1g iv daily. Call placed to [facility] and they asked me to call back in 20 min (nurse not available) EM RS: Stop date today. [facility] called reporting incision warm to touch and red. Sutures look good. They are requesting abx extension and increase in vanc dosage. 06-06-24 labs: WBC 10.37 (8.29) CREAT 1.03 (1.23) VANC T 14.8 (16.9). CURRENT TREATMENT PLAN: VANC 750MG IV Q12 CEFTRIAXONE 2GM IV Q24 till 06-13 AND FLUCONAZOLE 400MG PO Q24 till 07-09-24. This week's labs pending. Please advise. Geno nurse with [facility] called requesting a vanc dosage increase to 1gm wound care nurse in house reporting the incision is warm to touch and red sutures look good. Stop is today I requested labs be faxed over they will order them stat. Dionna Gallegos [facility] [phone] confirmed copat orders and labs with Catie at [facility]. 06-06-24 labs WNL reviewed in [facility] Images from the original note were not included. Addendum Information Date & Time User 06/04/2024 11:20 AM JEANNE WHITEHEAD 06/06/2024 7:15 PM JEANNE WHITEHEAD Patient Info Patient Name Sex Mitul Oakes ([id number]) Male 1955 Encounter Notes Progress Notes by Jeanne Whitehead MD, encounter date 05/30/2024: Progress Notes [facility] Outpatient Parenteral Antimicrobial Therapy (OPAT) Start Form Patient Info Patient MRN Patient Name Address Date of [id number] Mitul Oakes [address] [facility] [id number] 1955 Start Date 06/06/2024 Physician Group [facility] Diagnosis Group Diagnosis Osteoarticular: Osteomyelitis 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 SKIN MICKEY IV Antibiotics Antibiotic Dose Frequency Stop Date Vancomycin 750 mg every 12 hours 06/13/2024 Ceftriaxone 2 grams every 24 hours 06/13/2024 Oral Antibiotics Antibiotic Dose Frequency Stop Date Fluconazole 400 mg every 24 hours 07/09/2024 Lab Monitoring Plan Labs Frequency While on CBC/diff Creatinine Liver Function Tests Pre-dose Vancomycin every Sunday every Sunday every Sunday every Sunday Ceftriaxone Vancomycin Ceftriaxone Vancomycin Ceftriaxone Vancomycin Vancomycin target trough level 10-20 mg/L OPAT Pharmacy Consult Yes Cath Care Protocol Flush IV line with 10 mL of normal saline (0.9%) before and after each dose of medication or at a minimum once daily. Flush IV line with 10-20 mL of normal saline (0.9%) after lab draw. Labs may be drawn on Sunday if Sunday is a holiday. Follow up Provider Follow up date/time Appointment type Jeanne Whitehead MD No Follow Up Provider Monitoring Treatment Course Jeanne Whitehead MD Address [address] [place], [place] [id number] Prescribing Provider's signature - electronically signed by Jeanne Whitehead MD on 06/06/24 at 7:14 PM Images from the original note were not included. REVISED COPAT Encounter Information Date & Time Provider Department Encounter # Center 05/30/2024 8:32 PM Jeanne Whitehead [place] PROVIDER ADULT [id number] Addendum Information Date & Time User 06/04/2024 11:20 AM JEANNE WHITEHEAD Patient Info Patient Name Sex Mitul Duffy ([id number]) Male 1955 Encounter Notes Progress Notes by Jeanne Whitehead MD, encounter date 05/30/2024: Progress Notes [facility] Outpatient Parenteral Antimicrobial Therapy (OPAT) Start Form Patient Info Patient MRN Patient Name Address Date of [id number] Mitul Oakes [address] [place] [id number] 1955 Start Date 06/04/2024 Physician Group [facility] Diagnosis Group Diagnosis Osteoarticular: Osteomyelitis 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 SKIN MICKEY IV Antibiotics Antibiotic Dose Frequency Stop Date Vancomycin 750 mg every 12 hours 07/09/2024 Ceftriaxone 2 grams every 24 hours 07/09/2024 Oral Antibiotics Antibiotic Dose Frequency Stop Date Fluconazole 400 mg every 24 hours 07/09/2024 Lab Monitoring Plan Labs Frequency While on CBC/diff Creatinine Liver Function Tests Pre-dose Vancomycin every Sunday every Sunday every Sunday every Sunday Ceftriaxone Vancomycin Ceftriaxone Vancomycin Ceftriaxone Vancomycin Vancomycin target trough level 10-20 mg/L OPAT Pharmacy Consult Yes Cath Care Protocol Flush IV line with 10 mL of normal saline (0.9%) before and after each dose of medication or at a minimum once daily. Flush IV line with 10-20 mL of normal saline (0.9%) after lab draw. Labs may be drawn on Sunday if Sunday is a holiday. Follow up Provider Follow up date/time Appointment type Jeanne Whitehead MD No Follow Up Provider Monitoring Treatment Course Jeanne Whitehead MD Address [address] [place], [place] [id number] Prescribing Provider's signature - electronically signed by Jeanne Whitehead MD on 06/04/24 at 11:20 AM Summary: COPAT MANAGEMENT FOR [facility] USE ONLY Images from the original note were not included. Date & Time Provider Department Encounter # Center 05/30/2024 8:32 PM Jeanne Whitehead [place] PROVIDER ADULT [id number] Patient Info Patient Name Sex Mitul Rosa ([id number]) Male 1955 Encounter Notes Progress Notes by Jeanne Whitehead MD, encounter date 05/30/2024: Progress Notes [facility] Outpatient Parenteral Antimicrobial Therapy (OPAT) Start Form Patient Info Patient MRN Patient Name Address Date of [id number] Mitul Oakes [address] [facility] [address] 1955 Start Date 05/30/2024 Physician Group [facility] Diagnosis Group Diagnosis Osteoarticular: Osteomyelitis 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 SKIN MICKEY IV Antibiotics Antibiotic Dose Frequency Stop Date Vancomycin 1 gram every 12 hours 07/09/2024 Ceftriaxone 2 grams every 24 hours 07/09/2024 Oral Antibiotics Antibiotic Dose Frequency Stop Date Fluconazole 400 mg every 24 hours 07/09/2024 Lab Monitoring Plan Labs Frequency While on CBC/diff Creatinine Liver Function Tests Pre-dose Vancomycin every Sunday every Sunday every Sunday every Sunday Ceftriaxone Vancomycin Ceftriaxone Vancomycin Ceftriaxone Vancomycin Vancomycin target trough level 10-20 mg/L OPAT Pharmacy Consult Yes Cath Care Protocol Flush IV line with 10 mL of normal saline (0.9%) before and after each dose of medication or at a minimum once daily. Flush IV line with 10-20 mL of normal saline (0.9%) after lab draw. Labs may be drawn on Sunday if Sunday is a holiday. Follow up Provider Follow up date/time Appointment type Jeanne Whitehead MD No Follow Up Provider Monitoring Treatment Course Jeanne Whitehead MD Address [address] [place] [address], [place] [phone] Prescribing Provider's signature - electronically signed by Jeanne Whitehead MD on 05/30/24 at 8:34 PM documented in this encounter [facility] 06-25-2024 Telephone encounter Note Jun 25 creat wnl at 1.12 The results were attached to the M drive To be repeated again and Sun [facility] 06-24-2024 Telephone encounter Note Per [facility] note: Discontinue IV vancomycin and ertapenem today due to ALFIE Repeat creatinine daily for 3 days. Encourage IV fluid hydration. If creatinine is worsening, the patient may need to be admitted through the emergency room to the hospital for management of acute renal failure IV ceftriaxone was changed to ertapenem. Antibiotic stop date initially planned for 06/27/2024. But will stop ertapenem and vancomycin today due to ALFIE Continue fluconazole till 07/09/2024 VO given to Catie at [facility] to stop IV abx, encourage IV fluid hydration and repeat creat daily x3 days. They will fax results (if results worsening Catie aware that patient needs to go to ED) [facility] 06-24-[address] [facility] 06-24-2024 History of Presen t illness Narrative INFECTIOUS DISEASE WOUND CENTER NOTE Patient Name: Mitul Oakes Date: 06/24/2024 ASSESSMENT: Osteomyelitis of great toe of left foot (SP left foot I&D, wound debridement, wound vac application and bone biopsy (DOS 05/26/24). Proximal cx positive for SCN x 2 and C parapsilosis. Went again to OR and underwent LEFT great toe amp, bone biopsy 1st metatarsal LEFT, I&D hematoma LEFT dorsal foot 06/05 CAD (coronary artery disease) LEFT hallux wound to level of BONE LEFT dorsal foot wound to level of SUBCUTANEUS tissue LEFT foot cellulitis PVD ==> vascular consult Anxiety Depression COPD (chronic obstructive pulmonary disease) (HCC) History of DVT (deep vein thrombosis) Type 2 diabetes mellitus (HCC) Hx Right BKA PLAN: Discontinue IV vancomycin and ertapenem today due to ALFIE Repeat creatinine daily for 3 days. Encourage IV fluid hydration. If creatinine is worsening, the patient may need to be admitted through the emergency room to the hospital for management of acute renal failure IV ceftriaxone was changed to ertapenem. Antibiotic stop date initially planned for 06/27/2024. But will stop ertapenem and vancomycin today due to ALFIE Continue fluconazole till 07/09/2024 Vascular surgery follow up Proximal tissue/bone cx positive wo showing enterobacter which was in the initial wound cx and likely was superficial wound colonization Labs reviewed. Creatinine increased from 0.9-1.9. Other labs okay with vancomycin trough at 11.6. Follow-up with infectious disease in 3 weeks due to ALFIE and still being on the fluconazole INTERVAL HISTORY: ROS done with pt and negative unless stated. Patient appears to be doing well. Tolerating antibiotics without any problems however the labs from yesterday were positive for ALFIE. He remains asymptomatic. He is concerned about getting his sutures removed. MEDICATIONS: ondansetron (ZOFRAN) 4 mg tablet Take 4 mg by mouth every 8 hours as needed for nausea/vomiting. vancomycin 500 mg/100 mL IVPB Inject 500 mg intravenously every 12 hours. Per family - not on Aug but should go through 06/27/2024 oxyCODONE IR (ROXICODONE) 30 mg immediate release tablet Take 30 mg by mouth every 6 hours as needed for pain. aspirin, enteric coated (ASPIRIN, ENTERIC COATED) 81 mg EC tablet Take 81 mg by mouth once daily. atorvastatin (LIPITOR) 80 mg tablet Take 1 tablet by mouth once daily. qqjzgnfvqr-gfcujcwf-tiwftofmyc (BREZTRI) 160-9-4.8 mcg/actuation HFA aerosol inhaler Inhale 2 Puffs as instructed two times a day. buPROPion XL (WELLBUTRIN XL) 150 mg 24 hr tablet Take 1 tablet by mouth every morning. insulin glargine-yfgn (SEMGLEE) 100 unit/mL (3 mL) insulin pen Inject 25 Units subcutaneously two times a day. isosorbide mononitrate ER (IMDUR) 30 mg 24 hr tablet Take 30 mg by mouth. Pregabalin (LYRICA) 200 mg capsule Take 1 capsule by mouth three times a day. rivaroxaban (XARELTO) 2.5 mg tablet Take 2.5 mg by mouth two times a day. semaglutide (OZEMPIC) 2 mg/dose (8 mg/3 mL) pen injector Inject 2 mg subcutaneously one time a week. spironolactone (ALDACTONE) 25 mg tablet Take 0.5 tablets by mouth once daily. torsemide (DEMADEX) 20 mg tablet Take 1 tablet by mouth every morning. [place]-3 Fatty Acids-Vitamin E (FISH OIL) 1,000 mg cap Take 1 capsule by mouth. carvedilol (COREG) 25 mg tablet Take 25 mg by mouth twice daily with meals. vitamin D3-vitamin K2, MK4, 1,000-100 unit-mcg tab Take by mouth. ertapenem sodium (ERTAPENEM INTRAVENOUS) Inject 1 g intravenously once daily. Per family should stop 06/28/2024 (Patient not taking: Reported on 06/24/2024) fluconazole (DIFLUCAN) 200 mg tablet Take 2 tablets by mouth once daily. (Patient not taking: Reported on 06/24/2024) PHYSICAL EXAM: Vital signs: stable, afeb General: alert, oriented, NAD Lungs: bilaterally clear to auscultation Heart: regular rate and rhythm Abdomen: soft, non tender, non distended, BS+ Extremities: no swollen joints Skin: no rash Amputation site sutures clean, dry, intact. Dorsal foot wound without any purulent drainage or surrounding cellulitis. Clean granulation tissue at the base present. Lab data: reviewed WBC (k/uL) Date Value 06/06/2024 10.37 06/05/2024 9.31 06/04/2024 8.89 Hemoglobin (g/dL) Date Value 06/06/2024 11.8 06/05/2024 12.6 06/04/2024 12.8 INR (no units) Date Value 05/23/2024 1.1 Sodium (mmol/L) Date Value 06/06/2024 140 06/05/2024 140 06/04/2024 141 Potassium (mmol/L) Date Value 06/06/2024 4.2 06/05/2024 4.0 06/04/2024 3.9 CO2 (mmol/L) Date Value 06/06/2024 28 06/05/2024 28 06/04/2024 27 BUN (mg/dL) Date Value 06/06/2024 15 06/05/2024 15 06/04/2024 13 Creatinine (mg/dL) Date Value 06/06/2024 1.03 06/05/2024 1.15 06/04/2024 1.11 AST Date Value 05/24/2024 18 U/L 05/23/2024 Comment: Unable to assay due to interference from hemolysis. Suggest reorder as clinically indicated. ALT (U/L) Date Value 05/24/2024 12 05/23/2024 13 Bilirubin, Total (mg/dL) Date Value 05/24/2024 0.6 05/23/2024 0.6 Alkaline Phosphatase (U/L) Date Value 05/24/2024 105 05/23/2024 122 Sed Rate, Westergren (mm/hr) Date Value 05/24/2024 15 Sepsis Lactate (mmol/L) Date Value 05/23/2024 1.6 05/23/2024 2.1 Vancomycin (ug/mL) Date Value 06/06/2024 14.8 06/02/2024 16.9 05/31/2024 21.9 05/28/2024 16.5 05/26/2024 14.3 05/25/2024 29.1 Microbiology data: reviewed Imaging data: reviewed Jeanne Whitehead MD Pager: Nursing Documentation Pertinent Medical History: DM II, HIT, Right BKA, Sleep Apnea, COPD, AAA, PVD, HTN, CAD Wound Etiology according to patient: Wound on the Left lower Extremity with Surgery Jun 05, 2024 Patient arrived via: Wheelchair with family from facility([facility]) Home Care Company/Nursing Facility: Lives at [facility] Consent captured for debridement per Dr. Brandon Crowell until December 2024 Special Instructions (for example, patient stands at the bedside for exam/dressing): able to transfer to bed Anticoagulant Therapy: ASA, Xarelto Living Situation (ie... 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 Provider seeing patient: Brandon Rubin DPM & Jeanne Whitehead MD WOUND ASSESSMENT: Refer to Provider's Wound Assessment Note VASCULAR ASSESSMENT BY PROVIDER: CHF History: denies Smoking: quit 1.5 years after smoking 50 years Education: Right Upper Arm PICC line EDEMA: Right foot: BKA Right calf: N/A Left foot: Hard, non-pitting Left Calf: 3+ MEASUREMENTS: in CM Right Calf: N/A Right Ankle: BKA Left Calf: 44.4 Left Ankle: 28.0 Length: 47.0 cm WOUND PHOTOGRAPHY: YES date taken: 06/19/2024 DEBRIDEMENT PROCEDURE BY PROVIDER: Anesthetic Used: 2% lido gel applied per Sharri Ji LPN Wound # all Other procedure: Specimen collected: WOUND TREATMENT PER MD ORDER: Wounds cleansed by mechanical debridement to allow provider to visualize wound base WOUND # 1 - LOCATION: Left Anterior Lower Leg L: 1.5 cm x W: 0.4 cm x D: 0.1 cm Cleansed with: Vashe Applied to carmita-wound skin: Skin prep Applied to wound bed: Adaptic & Calcium alginate Covered and secured with: 4x4 Excelsior SAP WOUND # 2 - LOCATION: Left Dorsal Medial Foot - (Apr 2024 - trauma per patient) L: 1.0 cm x W: 1.6 cm x D: 0.7 cm Cleansed with: Vashe Applied to carmita-wound skin: Skin prep Applied to wound bed: /" Iodoform packing Covered and secured with: 4x4 gauze, ABD pad, kerlix, & tape WOUND # 3 - LOCATION: Left Dorsal Middle Foot - (06/19/24) CLOSED 06/24/24 WOUND # 4 - LOCATION: Left Hallux Amp Site (05/2024) L: 8.0 cm x W: 0.2 cm x D: Sutured Cleansed with: Vashe Applied to carmita-wound skin: Skin prep Applied to wound bed: Betadine, Adaptic, & Calcium alginate Covered and secured with: 4x4 gauze, ABD pad, kerlix, & tape WOUND # 5 - LOCATION: Left 2nd Toe Nailbed - (May 2024) L: 1.0 cm x W: 1.2 cm x D: 0.1 cm Cleansed with: Vashe Applied to carmita-wound skin: Applied to wound bed: antibiotic ointment Covered and secured with: 2x2 allevyn AOC: Right Stump Medial Posterior ( > 1 year 2023) L: 1.0 cm x W: 1.1 cm x D: Callous Cleansed with: Vashe Applied to carmita-wound skin: Skin prep Applied to wound bed: Iodoflex Covered and secured with: 4x4 Excelsior SAP AOC: Right Lateral BKA: Cleansed with: Vashe Applied to carmita-wound skin: Skin prep Applied to wound bed: Allevyn pad Covered and secured with: 6x7 Excelsior SAP AOC Left Lateral Ankle(Superior) (Started from vasculitis > 6 months) Abd pad, Kerlix wrap, tape COMPRESSION: LISA WRAP/SurePress/[employer]library services dean: Foot is warm and pink before and after application. It was demonstrated to the patient how to check for adequate circulation. Patient voices understanding. If circulation becomes compromised by a change in color, increased pain, numbness or tingling to the area, the patient knows to remove the compression and elevate the leg above the heart. DME: [employer] Lives at [facility] SPECIAL NEEDS: Coordination of care [facility] inpatient Emotional support N/A OR set-up N/A Steno Pool Supervisor N/A Incontinence needs N/A DISCHARGED in stable condition to: wheelchair with daughter PLAN/ORDERS: - Return to the [facility] for a follow-up with heavy machinery operator Dr. Rubin on July 02 at 9:00 am. - Follow-up in the wound center to see infectious disease specialist Dr. Whitehead in 3 weeks. - You have an appointment to see vascular surgeon Dr. Grider on June 26 at 10:30 am. You must contact the vascular office in the [facility] to reschedule if needed. Please call and wait to be transferred to the hotbed operator. Request to speak with the vascular office and make an appointment with them once they answer. Phone number: [phone] - Infectious disease specialist Dr. Whitehead will be temporarily discontinuing the IV antibiotics until your kidney function labs have returned to normal. - Please do not trim your own toe nails - Being Diabetic - Podiatry should be managing nail care - Continue aggressive nutritional support to assist in wound healing, focusing heavily on increasing protein intake. Try to get about 100 g of protein per day to promote wound healing. Look into supplementing your meals with protein shakes. Do NOT skip meals! - Please follow-up with your PCP or nurse aide about your elevated blood pressure readings. - If you have any questions or concerns that cannot be answered with the following information, please follow the instructions listed above on how to contact the wound center. EDUCATION: The patient/family was instructed how to cleanse the wound(s). Visual demonstration on how to apply the dressing with teach back method. Signs & symptoms of infection were reviewed: Increased redness, swelling, pain, green/yellow drainage, fever and/or chills would all need to be evaluated by a Physician. Patient received typed home-going wound care instructions and has expressed intent to comply. Education performed regarding lymphedema/edema: Elevation of extremity above the heart for 30 minutes three times daily and as needed Exercise such as writing the ABC's with your toes in the air, walking and/or calf pumps Wearing compression as ordered by provider Diet controlling of sodium as instructed by provider Use of medication to help control edema. UNIVERSAL PROTOCOL / SAFETY CHECKLIST - N/A Current HBOT Status: Active or Complete - see screening below WOUND CENTER HYPERBARIC OXYGEN THERAPY SCREENING 1. Is the patient diabetic? (If No, skip to question 5) Yes 2. Does the patient have a lower extremity wound? Yes 3. Is there exposed/involved tendon or bone? No 4. Has the wound been present for 30 days? Yes If Yes to ALL questions above, consult the Hyperbaric Center 5. Has the patient been diagnosed with osteomyelitis? No 6. Has the patient had a previous skin graft or flap at the wound? No 7. Has the patient had or been offered vascular intervention/evaluation? No 8. Does the patient have a wound at an amputation site? No 9. Has the patient had radiation therapy at the site of the problem? No If Yes to ANY of questions 5-9, consult the Hyperbaric Center Ruth Atwood RN/ documented in this encounter [facility] 06-24-2024 Instructions Ruth Atwood RN - 06/24/2024 2:10 PM EST WOUND CARE INSTRUCTIONS- Mitul Oakes Wound Location: Left Lower Extremity Facility: [facility] Wound Vac: Skin prep to carmita-wound Duoderm to carmita-wound Eaken seal around the wound edge Black foam to wound bed - be sure to not over pack wound with foam Track pad placed avoiding all bony prominence Pad and protect skin from tubing at all times Change dressing 3 x weekly and as needed to keep clean and dry Wound Vac Settings 125 mmhg negative pressure Continuous High Intensity ALL WOUNDS 1. Wash your hands with soap and water before and after wound care. 2. Gather all supplies needed. 3. Apply a Vashe moistened 4x4 gauze to wound bed and allow to soak 5 minutes. Pat dry. Left Dorsal foot Alternate Dressin. Pack wound with 1/4" Iodoform packing strip 5. Cover with 4x4's, abd pad 6. Secure with: Kerlix wrap, tape to secure 7. Change dressing every day Left Dorsal Foot - Middle 4. Apply adaptic to wound bed 5. Cover with calcium alginate 6. Cover with wound vac drape when applied 7. Until wound vac is applied - Use gauze to cover 8. Secure with kerlix wrap, tape to secure 9. Change every day or with wound vac 3 x weekly Left Lower Anterior Le. Apply to the wound base: Adaptic, calcium alginate 5. Cover with : 4x4's, abd pad, kerlix wrap 6. Change your dressing: every other day Left Hallux Amp Site: 4. Apply to the wound base: betadine Adaptic, calcium alginate 5. Cover with : 4x4's, abd pad, kerlix wrap 6. Change your dressing: every other day Right BKA Medial Posterior: 4. Apply to the wound base: Iodoflex 5. Cover with : 4x4 excel sap 6. Change your dressing: every other day Right Lateral BKA: 4. Cover with an allevyn pad 5. Secure with 6x7 excel sap 6. Change every other day Left 2nd toe nail bed 4. Apply thin layer of antibiotic ointment 5. Cover with a 2x2 Allevyn 6. Change dressing every other day To give your wound the best chance to heal: - Eat three balanced meals daily focusing on the protein - Control swelling by elevating the extremity above your heart - Control your blood sugar. Keep blood sugar less than 200 - Complete your wound care instructions - Vitamin C 500 mg twice daily - Multiple Vitamin Daily - Drink a protein shake daily - premiere shakes for non-diabetic patients Premiere Clear or Glucerna for Diabetic patients and Nepro for Chronic Kidney Disease patients. - Smoking decreases the amount of oxygen delivered to tissue and can impair wound healing and/or increased risk of infection Report any of the following changes [phone] or go to the Emergency Department: Fever or chills Increased drainage Green or yellow drainage Foul odor Increased pain Hardness around the wound Redness, warmth or swelling of the surrounding tissue Color change to the wound Evenings / Weekends / Holidays If you call the wound center at the phone number provided above, please leave a detailed message that includes your full name, birthday, and phone number. We are seeing patients during the day, so we will return your call within a 24-48 hr period in the order your call was received. There is not an on-call provider assigned to the wound center. If you have an emergency that needs to be addressed, please go to an Urgent Care or Emergency Room. Thank you for your cooperation and understanding. If you are feeling ill, please call to reschedule your appointment. If you believe your illness to be wound related, call and leave a message using the directions above describing your symptoms. If you cannot wait 24-48 hrs for a callback, please get evaluated in the nearest emergency department. PLAN/ORDERS - Return to the [facility] for a follow-up with heavy machinery operator Dr. Rubin on July 02 at 9:00 am. - Follow-up in the wound center to see infectious disease specialist Dr. Whitehead in 3 weeks. - You have an appointment to see vascular surgeon Dr. Grider on June 26 at 10:30 am. You must contact the vascular office in the [facility] to reschedule if needed. Please call and wait to be transferred to the hotbed operator. Request to speak with the vascular office and make an appointment with them once they answer. Phone number: [phone] - Infectious disease specialist Dr. Whitehead will be temporarily discontinuing the IV antibiotics until your kidney function labs have returned to normal. - Please do not trim your own toe nails - Being Diabetic - Podiatry should be managing nail care - Continue aggressive nutritional support to assist in wound healing, focusing heavily on increasing protein intake. Try to get about 100 g of protein per day to promote wound healing. Look into supplementing your meals with protein shakes. Do NOT skip meals! - Please follow-up with your PCP or nurse aide about your elevated blood pressure readings. - If you have any questions or concerns that cannot be answered with the following information, please follow the instructions listed above on how to contact the wound center. Jeanne Whitehead MD/RITO/LT documented in this encounter [facility] 06-24-[address] [facility] 06-23-2024 Telephone encounter Note .6.25 labs reviewed and attached to M drive. Creat elevated 1.91 (0.94) Vanc T 11.6. Patient has appointment scheduled with RS tomorrow at [facility] 06-20-[address] [facility] 06-19-[address] [facility] 06-19-2024 Telephone encounter Note [place] 2 labs reviewed, no changes Creat wnl at 0.90 Vanc trough wnl at 12.6 The tubes were taken to [facility] The results were attached to the M drive [facility] 06-17-2024 Telephone encounter Note PER RS: Encourage hydration. Decrease vanco to 500 mg iv q12 after holding one dose. Repeat labs today and . Go to ED if creatinine jumps up into the 2s VO given to Geno at [facility] 06-16-2024 Telephone encounter Note EM RS: 06-16 ABN LABS: WBC 11.4 (10.37) CREAT 1.32 (1.03) VANC T 20.1 (14.8) CURRENT TX PLAN: VANC 750MG IV Q12 ERTAPENEM 1GM IV Q24 FLUCONAZOLE 400MG PO DAILY. Please advise [facility] 06-13-2024 Telephone encounter Note Summary: Med change new stop date VO given to Geno at [facility] VANC 750MG IV Q12 X14 DAYS STOP CEFTRIAXONE START ERTAPENEM 1G IV Q24 X14 DAYS CONTINUE FLUCONAZOLE 400MG PO DAILY TILL 07-09-24 [facility] 06-13-2024 Telephone encounter Note PER RS: OK to extend antibiotics for two weeks. Also change Ceftriaxone to Ertapenem 1g iv daily. Call placed to [facility] and they asked me to call back in 20 min (nurse not available) [facility] 06-13-2024 Telephone encounter Note EM RS: Stop date today. ECF called reporting incision warm to touch and red. Sutures look good. They are requesting abx extension and increase in vanc dosage. 06-06-24 labs: WBC 10.37 (8.29) CREAT 1.03 (1.23) VANC T 14.8 (16.9). CURRENT TREATMENT PLAN: VANC 750MG IV Q12 CEFTRIAXONE 2GM IV Q24 till 06-13 AND FLUCONAZOLE 400MG PO Q24 till 07-09-24. This week's labs pending. Please advise. [facility] 06-13-2024 Telephone encounter Note Geno nurse with [facility] called requesting a vanc dosage increase to 1gm wound care nurse in house reporting the incision is warm to touch and red sutures look good. Stop is today I requested labs be faxed over they will order them stat. Dionna Gallegos [facility] 06-09-2024 Telephone encounter Note [facility] [phone] confirmed copat orders and labs with Catie at [facility]. 06-06-24 labs WNL reviewed in [facility] 06-09-2024 Telephone encounter Note Images from the original note were not included. Addendum Information Date & Time User 06/04/2024 11:20 AM JEANNE WHITEHEAD 06/06/2024 7:15 PM JEANNE WHITEHEAD Patient Info Patient Name Sex Mitul Oakes ([id number]) Male 1955 Encounter Notes Progress Notes by Jeanne Whitehead MD, encounter date 05/30/2024: Progress Notes [facility] Outpatient Parenteral Antimicrobial Therapy (OPAT) Start Form Patient Info Patient MRN Patient Name Address Date of [id number] Mitul Oakes [address] [facility] [id number] 1955 Start Date 06/06/2024 Physician Group [facility] Diagnosis Group Diagnosis Osteoarticular: Osteomyelitis 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 SKIN MICKEY IV Antibiotics Antibiotic Dose Frequency Stop Date Vancomycin 750 mg every 12 hours 06/13/2024 Ceftriaxone 2 grams every 24 hours 06/13/2024 Oral Antibiotics Antibiotic Dose Frequency Stop Date Fluconazole 400 mg every 24 hours 07/09/2024 Lab Monitoring Plan Labs Frequency While on CBC/diff Creatinine Liver Function Tests Pre-dose Vancomycin every Sunday every Sunday every Sunday every Sunday Ceftriaxone Vancomycin Ceftriaxone Vancomycin Ceftriaxone Vancomycin Vancomycin target trough level 10-20 mg/L OPAT Pharmacy Consult Yes Cath Care Protocol Flush IV line with 10 mL of normal saline (0.9%) before and after each dose of medication or at a minimum once daily. Flush IV line with 10-20 mL of normal saline (0.9%) after lab draw. Labs may be drawn on Sunday if Sunday is a holiday. Follow up Provider Follow up date/time Appointment type Jeanne Whitehead MD No Follow Up Provider Monitoring Treatment Course Jeanne Whitehead MD Address [address] [place] [address] Prescribing Provider's signature - electronically signed by Jeanne Whitehead MD on 06/06/24 at 7:14 PM [facility] 06-06-2024 Note HNO ID: [id number] Author: PENG KIM RN Service: Nursing Author Type: Registered Nurse Type: Nursing Progress Note Filed: 06/06/2024 18:11 Note Text: 1800: Transport scheduled for 1900. Report given to nurse at [facility]. [facility] 06-06-[address] [facility] 06-05-[address] [facility] 06-04-2024 Telephone encounter Note Images from the original note were not included. REVISED COPAT Encounter Information Date & Time Provider Department Encounter # Center 05/30/2024 8:32 PM Jeanne Whitehead [place] PROVIDER ADULT [id number] Addendum Information Date & Time User 06/04/2024 11:20 AM JEANNE WHITEHEAD Patient Info Patient Name Sex Mitul Duffy ([id number]) Male 1955 Encounter Notes Progress Notes by Jeanne Whitehead MD, encounter date 05/30/2024: Progress Notes [facility] Outpatient Parenteral Antimicrobial Therapy (OPAT) Start Form Patient Info Patient MRN Patient Name Address Date of [id number] [place] [id number] 1955 Start Date 06/04/2024 Physician Group [facility] Diagnosis Group Diagnosis Osteoarticular: Osteomyelitis 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 SKIN MICKEY IV Antibiotics Antibiotic Dose Frequency Stop Date Vancomycin 750 mg every 12 hours 07/09/2024 Ceftriaxone 2 grams every 24 hours 07/09/2024 Oral Antibiotics Antibiotic Dose Frequency Stop Date Fluconazole 400 mg every 24 hours 07/09/2024 Lab Monitoring Plan Labs Frequency While on CBC/diff Creatinine Liver Function Tests Pre-dose Vancomycin every Sunday every Sunday every Sunday every Sunday Ceftriaxone Vancomycin Ceftriaxone Vancomycin Ceftriaxone Vancomycin Vancomycin target trough level 10-20 mg/L OPAT Pharmacy Consult Yes Cath Care Protocol Flush IV line with 10 mL of normal saline (0.9%) before and after each dose of medication or at a minimum once daily. Flush IV line with 10-20 mL of normal saline (0.9%) after lab draw. Labs may be drawn on Sunday if Sunday is a holiday. Follow up Provider Follow up date/time Appointment type Jeanne Whitehead MD No Follow Up Provider Monitoring Treatment Course Jeanne Whitehead MD Address [address] [place] [address] Prescribing Provider's signature - electronically signed by Jeanne Whitehead MD on 06/04/24 at 11:20 AM [facility] 06-04-[address] [facility] 06-04-[address] [facility] 06-03-2024 Note HNO ID: [id number] Author: VIOLETA GARRETT RN Service: Care Management Author Type: Registered Nurse Type: Care Mgt Progress Note Filed: 06/05/2024 10:46 Note Text: CARE MANAGEMENT UTILIZATION REVIEW COMMITTEE PROVIDER LIABLE (Admission Status Discrepancy Review) Admission Date: 06/02/2024 Patient's Initial Order is: Inpatient Date Received: June 05, 2024 Date Reviewed: June 05, 2024 Under the authority of the Utilization Management Committee, the Physician Advisor, Dr. Gail Gaona, has reviewed the medical record of the above patient. The following recommendation has been made by the Physician Advisor, based upon the current available medical information as of the date of this determination. The patient is appropriate for: Outpatient in a Bed/Extended Recovery Rationale for this decision: Lack of medical necessity for inpatient admission and less than 2 midnight stay SIGNATURE: Violeta Garrett RN PATIENT NAME: Mitul Oakes DATE: June 05, 2024 TIME: 10:46 AM Disclaimer: The information in this determination is to be used for utilization management purposes only. The information and recommendation is made pursuant to Medicare Hospital Conditions of Participation (442 CFR Part 482) and is neither a judgment nor an assessment with regard to the appropriateness or quality of the clinical care. Nothing in this document may be used to limit clinical services provided to the above named patient. This form should be used as one part of the process utilized to ensure compliance with [facility] policy regarding Inpatient Admission and Observation Services. The definitions of Inpatient and Observation used in making the determination above are those provided in Medicare Benefit Policy Manual Chapter 1, Section 1 and 10, Chapter 6, Section 20, and the Medicare Claims Processing Manual Chapter 1, Section 50.3 and Chapter 4, Section 290. This recommendation should be considered as only one factor in determining the patient's final level of service along with other pertinent documentation such as the treating physician's order as documented evidence of concurrence. [facility] 06-03-[address] [facility] 06-03-[address] [facility] 06-02-2024 Note HNO ID: [id number] Author: MILLIE ANDERSON DO Service: General Surgery Author Type: Resident Type: Plan of Care Filed: 06/02/2024 23:04 Note Text: Vascular Surgery Post-Op Check Pt seen and examined after LLE angio with balloon angioplasty of distal SFA via right groin percutaneous access. He is resting in bed comfortably in no acute distress. Denies new or worsening pain, numbness or tingling. On exam, he has dopplerable L DP and PT signals. His left foot is wrapped in kerlex. His right groin access site is without hematoma and bandaids are CDI. Plan: -discharge orders sent for pt to return back to [facility] -Continue aspirin 81mg daily and resume xarelto 2.5mg BID tomorrow on 06/03/24 Millie Anderson DO June 02, 2024 11:03 PM [facility] 06-02-2024 Note HNO ID: [id number] Author: KARLY CORRIGAN RN Service: Care Management Author Type: Registered Nurse Type: Care Mgt Progress Note Filed: 06/02/2024 17:44 Note Text: CARE MANAGEMENT PROGRESS NOTE SERVICE DATE: 06/02/2024 SERVICE TIME: 5:39 PM LOS: 0 days CM was requested to assist with arranging transport for patient to return to [facility]. Patient was sent here on STEPHANIE from [facility] for angiogram. CM discussed with [facility]. Plan is for surgery to reassess patient at 11pm this evening. If the assessment is satisfactory, then patient will be permitted to return to [facility]. Since the discharge time is not concrete, CM is unable to schedule the transport. HOWEVER, the transport form and facesheet have been completed and sent to PACU. When patient is ready for transport back to [facility], [facility] to call [phone] to request cot transport and call report to [facility]. CM called and confirmed with [facility] that they have transporters available 08/01. SIGNATURE: Karly oCrrigan RN PATIENT NAME: Mitul Oakes DATE: June 02, 2024 TIME: 5:39 PM [facility] 06-02-2024 Note HNO ID: [id number] Author: MARSHA LUCAS DO Service: Vascular Surgery Author Type: Physician Type: Plan of Care Filed: 06/02/2024 17:37 Note Text: Vascular Surgery Plan of Care Patient s/p right groin access and left leg angiogram with balloon angioplasty of distal SFA. Patient has strong left DP/PT signals post procedure. Right groin access site without hematoma. Bedrest for 6 hours Ok to transport patient back to [place] at 10pm if no groin hematoma Continue aspirin 81mg daily and resume xarelto 2.5mg BID tomorrow on 06/03/24 Marsha Lucas DO [facility] 06-02-[address] [facility] 06-02-2024 Note HNO ID: [id number] Author: KIRSTEN NEWBERRY RN Service: ? Author Type: Registered Nurse Type: Nursing Progress Note Filed: 06/02/2024 18:03 Note Text: 1150: Pt picked up for transport by [facility] for scheduled angiogram at [facility]. [facility] 06-02-[address] [facility] 06-02-2024 Telephone encounter Note Summary: COPAT MANAGEMENT FOR IDC USE ONLY Images from the original note were not included. Date & Time Provider Department Encounter # Center 05/30/2024 8:32 PM Jeanne Whitehead [place] PROVIDER ADULT [id number] Patient Info Patient Name Sex Mitul Duffy ([id number]) Male 1955 Encounter Notes Progress Notes by Jeanne Whitehead MD, encounter date 05/30/2024: Progress Notes [facility] Outpatient Parenteral Antimicrobial Therapy (OPAT) Start Form Patient Info Patient MRN Patient Name Address Date of [id number] Mitul Oakes [address] [facility] [address] 1955 Start Date 05/30/2024 Physician Group [facility] Group Diagnosis Osteoarticular: Osteomyelitis 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 SKIN MICKEY IV Antibiotics Antibiotic Dose Frequency Stop Date Vancomycin 1 gram every 12 hours 07/09/2024 Ceftriaxone 2 grams every 24 hours 07/09/2024 Oral Antibiotics Antibiotic Dose Frequency Stop Date Fluconazole 400 mg every 24 hours 07/09/2024 Lab Monitoring Plan Labs Frequency While on CBC/diff Creatinine Liver Function Tests Pre-dose Vancomycin every Sunday every Sunday every Sunday every Sunday Ceftriaxone Vancomycin Ceftriaxone Vancomycin Ceftriaxone Vancomycin Vancomycin target trough level 10-20 mg/L OPAT Pharmacy Consult Yes Cath Care Protocol Flush IV line with 10 mL of normal saline (0.9%) before and after each dose of medication or at a minimum once daily. Flush IV line with 10-20 mL of normal saline (0.9%) after lab draw. Labs may be drawn on Sunday if Sunday is a holiday. Follow up Provider Follow up date/time Appointment type Jeanne Whitehead MD No Follow Up Provider Monitoring Treatment Course Jeanne Whitehead MD Address [address] [place] [address], [place] [address] Prescribing Provider's signature - electronically signed by Jeanne Whitehead MD on 05/30/24 at 8:34 PM [facility] 06-01-[address] [facility] 06-01-[address] [facility] 05-31-[address] [facility] 05-31-[address] [facility] 05-31-2024 Note HNO ID: [id number] Author: NOTE, INTERFACE, ? Service: ? Author Type: ? Type: Progress Notes Filed: 06/05/2024 16:01 Note Text: Epic Scheduled Downtime: 05/31/2024 1:00:00 AM to 05/31/2024 2:52:[address] [facility] 05-30-[address] [facility] 05-30-2024 History of Presen t illness Narrative Images from the original note were not included. [facility] Outpatient Parenteral Antimicrobial Therapy (OPAT) Start Form Patient Info Patient MRN Patient Name Address Date of [id number] Mitul Oakes [address] [place] [id number] 1955 Start Date 05/30/2024 Physician Group [facility] Group Diagnosis Osteoarticular: Osteomyelitis 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 SKIN MICKEY IV Antibiotics Antibiotic Dose Frequency Stop Date Vancomycin 1 gram every 12 hours 07/09/2024 Ceftriaxone 2 grams every 24 hours 07/09/2024 Oral Antibiotics Antibiotic Dose Frequency Stop Date Fluconazole 400 mg every 24 hours 07/09/2024 Lab Monitoring Plan Labs Frequency While on CBC/diff Creatinine Liver Function Tests Pre-dose Vancomycin every Sunday every Sunday every Sunday every Sunday Ceftriaxone Vancomycin Ceftriaxone Vancomycin Ceftriaxone Vancomycin Vancomycin target trough level 10-20 mg/L OPAT Pharmacy Consult Yes Cath Care Protocol Flush IV line with 10 mL of normal saline (0.9%) before and after each dose of medication or at a minimum once daily. Flush IV line with 10-20 mL of normal saline (0.9%) after lab draw. Labs may be drawn on Sunday if Sunday is a holiday. Follow up Provider Follow up date/time Appointment type Jeanne Whitehead MD No Follow Up Provider Monitoring Treatment Course Jeanne Whitehead MD Address [address] [place] [address], [place] [address] Prescribing Provider's signature - electronically signed by Jeanne Whitehead MD on 05/30/24 at 8:34 PM documented in this encounter [facility] 05-30-[address] [facility] 05-29-[address] [facility] 05-29-[address] [facility] 05-28-[address] [facility] 05-28-[address] [facility] 05-27-[address] [facility] 05-26-[address] [facility] 05-25-[address] [facility] 05-25-[address] [facility] 05-25-[address] [facility] 05-24-[address] [facility] 05-23-2024 Note SARS-COV-2 (AGENT OF COVID-19) RNA: Not detected INFLUENZA A RNA: Not detected INFLUENZA B RNA: Not detected RESPIRATORY SYNCYTIAL VIRUS (RSV) RNA: Not detected [facility] Comment on above: Performed By: #### 9 [id number] ####[facility] [id number] [place] [address] [facility] Discharge summary Note Date/Time November 19, 2022 6:49am [facility] Medical Records Department [address] [place] [address] Emergency Department Summary 11/19/22 MR#: [id number] Acct: [id number] Name: MITUL OAKES Rep #:[id number] : 1955 67 From: Christopher Fontaine DO PCP: [facility] Status:REG ER Location: ED HPI History of Present Illness Chief Complaint: Lower Extremity Injury Narrative Narrative: Patient is a 67-year-old male with past medical history of peripheral vascular disease/arterial occlusion who is currently on Coumadin. He was at the [place] roughly 2 months ago where he had a endovascular procedure for revascularizationof his right lower leg. Patient states has been doing well and he went to bed last night around 11 PM. He states he woke around 1 AM with increased pain to his right leg. He states he took an oxycodone to see if this would help. He states that initially of the pain seemed to improve but then began to worsen. Secondary to his he called EMS and presents for evaluation. Patient states has been taking his medications as [facility] Medical History Coronary artery disease Hyperlipidemia Hypertension Pulmonary embolus Home Medications albuterol sulfate 90 mcg/actuation aerosol inhaler (Ventolin HFA) 2 puff inhalation Q4H PRN PRN SOB, wheezing ##3 10/26/14 [Rx Last Taken Unknown] aspirin 81 mg chewable tablet 81 mg PO DAILY@0800 ##90 10/26/14 [Rx Last Taken Unknown] atorvastatin 40 mg tablet 40 mg PO QHS ##90 10/26/14 [Rx Last Taken Unknown] carvedilol 3.125 mg tablet 3.125 mg PO BID ##90 10/26/14 [Rx Last Taken Unknown] apixaban 5 mg (74 tabs) tablets in a dose pack (Eliquis DVT-PE Treat 30D Start) 5 mg PO BID #74 tabs 12/20/21 [Rx Last Taken Unknown] Allergy/AdvReac Type Severity Reaction Status Date / Time heparin Allergy PT UNSURE Verified 11/19/22 05:45 OF REACTION nortriptyline Allergy PT UNSURE Verified 11/19/22 05:45 OF REACTION rivaroxaban Allergy PT UNSURE Verified 11/19/22 05:45 OF REACTION Surgical History S/P PTCA (percutaneous transluminal coronary angioplasty) Social History Smoking Status: Current every day smoker tobacco type: cigarettes ROS ROS ED Constitutional Constitutional ED: Denies chills or fever(s) ENT ENT ED: Denies sore throat Cardiovascular Cardiovascular: Denies chest pain or palpitations Respiratory/Chest Respiratory/Chest: Denies cough or dyspnea Gastrointestinal Gastrointestinal: Denies abdominal pain, diarrhea, nausea or vomiting Genitourinary Genitourinary ED: Denies dysuria Musculoskeletal Musculoskeletal: Reports other Details: Positive right leg pain Integumentary Reports other Details: Positive right lower leg discoloration Neurologic Neurologic: Reports weakness; Denies headache(s) or paresthesias Hematologic/Lymphatic Hematologic/Lymphatic: Reports easy bleeding and easy bruising EXAM Physical Exam Const Vital Signs: 11/19/22 05:03 Temperature 95.4 F L Temperature Source Temporal Pulse Rate 77 Respiratory Rate 20 H Blood Pressure 154/99 H Blood Pressure Mean 117 Pulse Ox 100 Oxygen Delivery Method Room Air Positive well nourished and well developed General Appearance ED: well developed HEENT Reports moist mucous membranes Eyes PERRL and EOMs intact bilaterally Neck supple Resp normal respiratory effort Resp Narrative: Breath sounds are diminished throughout with rhonchi in the bilateral bases consistent with history of smoking but no signs of respiratory distress Cardio regular rate and regular rhythm Rate: other Other Details: Radial pulses are plus 2 out of 4 bilaterally are equal and symmetric GI non-tender and non-distended GI Narrative: Abdomen is soft nontender nondistended with hypoactive bowel sounds no voluntaryguarding or rigidity no pulsatile mass or fluid with Auscultation: hypoactive bowel sounds Palpation: soft Extremity Extremity Narrative: Patient's right lower extremity is mottled compared to the left beginning aroundthe mid ward region down to the toes. The temperature is cooler on the right lower leg compared to the left but it is not cold to touch. Capillary refill isless than 2 seconds on the right lower leg as well at the great toe. Patient still reports normal sensation of the right and left leg. The patient is able to lift right leg against gravity and he is able to plantar and dorsiflex at theankle but strength and range of motion in this activity is decreased on the right compared to left. Please note I cannot palpate or Doppler pulses in the posterior tibial dorsalis pedis or popliteal region of the right lower leg. Neuro oriented x3 and CN's II-XII intact bilaterally Sensorium / Orientation: alert Psych mental status grossly normal Skin Skin Narrative: Soft tissue changes to the right lower leg as documented above Also patient has a open wound in the right groin from his previous endovascular procedure with packing in place. No secondary changes to suggest infection at the site. MDM MDM MDM Narrative Medical decision making narrative: Patient presented to the ER hypertensive but otherwise with stable vital. He reported he awoke with spontaneous pain in his right leg without trauma. Differential diagnosis includes DVT versus arterial occlusion versus bony injuryversus cellulitis or abscess. As the patient has history of peripheral arterialdisease and he has coolness and mottling acute arterial occlusion is the most likely diagnosis. However as his capillary refill is less than 2 seconds and the temperature difference is just cool not cold and sensation and muscular activity still present this would indicate patient has collateral circulation. Initially heparin was ordered but the patient has history of heparin-induced thrombocytopenia and therefore the vascular surgeon recommended against this. He did recommend argatroban and the pharmacy was contacted we do not carry this medication and therefore cannot be given. The patient was excepted to the [place] bythe vascular surgeon Dr. Marina and he will be sent to their facility for furtherevaluation of his vascular occlusion. We discussed flying the patient to their facility as he has had symptoms now for almost 6 hours but they do not have a helipad and therefore he will go by EMS to their center for further care History & Record Review Discussion w/independent historian: EMS personnel and Patient Lab Data Attestation: I reviewed the patient's lab results. Labs: Laboratory Results - last 24 hr 11/19/22 11/19/22 11/19/22 05:15 05:15 05:15 WBC 9.2 RBC 5.15 Hgb 14.9 Hct 46.5 MCV 90.3 MCH 28.9 MCHC 32.0 RDW Std Deviation 48.6 H RDW Coeff of Yesi 14.6 Plt Count 238 MPV 9.9 Immature Gran % (Auto) 0.500 Neut % (Auto) 59.0 Lymph % (Auto) 26.2 [place] % (Auto) 11.3 H Eos % (Auto) 2.0 Baso % (Auto) 1.0 Absolute Neuts (auto) 5.4 Absolute Lymphs (auto) 2.41 Nucleated RBC % 0 PT 17.7 H INR 1.5 APTT 27.7 Sodium 136 Potassium 3.9 Chloride 107 Carbon Dioxide 23.0 Anion Gap 6 BUN 20 H Creatinine 0.81 Estim Creat Clear Calc 95.55 Est GFR (MDRD) Af Amer 123 Est GFR (MDRD) Non-Af 102 BUN/Creatinine Ratio 24.8 H Glucose 223 H Lactic Acid Calcium 9.0 11/19/22 05:15 WBC RBC Hgb Hct MCV MCH MCHC RDW Std Deviation RDW Coeff of Yesi Plt Count MPV Immature Gran % (Auto) Neut % (Auto) Lymph % (Auto) Concho % (Auto) Eos % (Auto) Baso % (Auto) Absolute Neuts (auto) Absolute Lymphs (auto) Nucleated RBC % PT INR APTT Sodium Potassium Chloride Carbon Dioxide Anion Gap BUN Creatinine Estim Creat Clear Calc Est GFR (MDRD) Af Amer Est GFR (MDRD) Non-Af BUN/Creatinine Ratio Glucose Lactic Acid 2.3 H* Calcium Management Discussion w/another healthcare provider: [facility] Critical Care Time Critical Care Time: Yes Critical care time (excluding procedures): Discussing w/Patient &/or Family/CareGiver, Discussing w/Consultants, Arranging Admission or Transfer and - (Please note critical care time of 33 minutes) Discharge Plan Triage Chief Complaint: Lower Extremity Injury ED Provider: Christopher Fontaine Dx/Rx/DC Orders Clinical Impression: Arterial occlusion, lower extremity, Hypertension, Current use of oil heaterman anticoagulation Prescriptions: No Action atorvastatin 40 MG tablet 40 mg PO QHS Qty: 90 0RF Label Comments: cholesterol carvedilol 3.125 MG tablet 3.125 mg PO BID Qty: 90 0RF Label Comments: heart/blood pressure aspirin 81 MG tablet,chewable 81 mg PO DAILY@0800 Qty: 90 0RF Label Comments: heart/blood thinner albuterol sulfate [Ventolin HFA] 1 INHALER inhaler 2 puff inhalation Q4H PRN PRN (Reason: SOB, wheezing) Qty: 3 0RF Label Comments: breathing Eliquis DVT-PE Treat 30D Start 5 mg (74 tabs) tablets,dose pack 5 mg PO BID Qty: 74 0RF Primary Care Provider: [facility] Referrals[facility] [Primary Care Provider] - Disposition Disposition: Acute Care Hospital Discharge Location: [facility] What to do if you have Problems For any increased pain, shortness of breath, bleeding, nausea or vomiting, chestpain, or any unexpected problems, contact your Primary Care Provider. Call [facility] ([phone]) or report to the closest Emergency Room. Call 911 if necessary. 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 PAD (peripheral artery disease) (HCC) Peripheral vascular disease, unspecified Osteomyelitis of great toe of left foot (HCC) Stenosis of superficial femoral artery (HCC) PAD (peripheral artery disease) (HCC) Peripheral vascular disease, unspecified Osteomyelitis of great toe of left foot (HCC) [facility] Diagnosis PAD (peripheral artery disease) (HCC)- Primary Peripheral vascular disease, unspecified Osteomyelitis of ankle or foot, acute, left (HCC) [facility] Diagnosis Ulcer of toe of left foot, limited to breakdown of skin (HCC)- Primary Osteomyelitis of great toe of left foot (HCC) Open toe wound, initial encounter Type 2 diabetes mellitus with stage 1 chronic kidney disease, without long-term current use of insulin (HCC) (HCC) ALFIE (acute kidney injury) (HCC) Acute kidney failure, unspecified Chronic obstructive pulmonary disease with acute lower respiratory infection (HCC) Obstructive chronic bronchitis with exacerbation PAD (peripheral artery disease) (HCC) Peripheral vascular disease, unspecified [facility] Diagnosis Ulcer of toe of left foot, limited to breakdown of skin (HCC)- Primary [facility] Diagnosis Ulcer of toe of left foot, limited to breakdown of skin (HCC)- Primary Osteomyelitis of great toe of left foot (HCC) Open toe wound, initial encounter Type 2 diabetes mellitus with stage 1 chronic kidney disease, without long-term current use of insulin (HCC) (HCC) ALFIE (acute kidney injury) (HCC) Acute kidney failure, unspecified PAD (peripheral artery disease) (HCC) Peripheral vascular disease, unspecified Chronic obstructive pulmonary disease with acute lower respiratory infection (HCC) Obstructive chronic bronchitis with exacerbation [facility] Diagnosis PAD (peripheral artery disease) (HCC)- Primary Peripheral vascular disease, unspecified [facility] Diagnosis Cellulitis of toe of left foot- Primary Cellulitis and abscess of toe, unspecified Ulcer of toe of left foot, limited to breakdown of skin (HCC) Open toe wound, initial encounter Type 2 diabetes mellitus with stage 1 chronic kidney disease, without long-term current use of insulin (HCC) PAD (peripheral artery disease) Peripheral vascular disease, unspecified Chronic obstructive pulmonary disease with acute lower respiratory infection (HCC) Obstructive chronic bronchitis with exacerbation [facility] Cellulitis of toe of left foot- Primary Cellulitis and abscess of toe, unspecified Ulcer of toe of left foot, limited to breakdown of skin (HCC) Open toe wound, initial encounter Type 2 diabetes mellitus with stage 1 chronic kidney disease, without long-term current use of insulin (HCC) PAD (peripheral artery disease) Peripheral vascular disease, unspecified Chronic obstructive pulmonary disease with acute lower respiratory infection (HCC) Obstructive chronic bronchitis with exacerbation Osteomyelitis of great toe of left foot (HCC) ALFIE (acute kidney injury) Acute kidney failure, unspecified [facility] Outpatient Procedure (Routine) - Authorized Specialty Diagnoses / Procedures Referred By Contac t [facility] Diagnoses PAD (peripheral artery disease) (HCC) Procedures PVR ANK PRESS GRACIELA VAS LAB NON-INVAS PHYSIOLOGIC STD EXTREMITY ART 2 LEVEL Marsha Lucas DO [address] [place] [address] [facility] [address] [place] [address] Referral ID Status Reason Start Date Expiration Date Visits Requested Visits Authorized [id number] Authorized Auto-Generat ed Referral 07/04/2024 06/03/2025 1 1 * Outpatient Procedure (Routine) - Authorized Specialty Diagnoses / Procedures Referred By Contac t [facility] Diagnoses PAD (peripheral artery disease) (HCC) Procedures US LEG ARTERIAL PERIPH UNL VAS LAB DUP-SCAN LXTR ART/ARTL BPGS UNI/LMTD STUDY Marsha Lucas DO [address] [place] [address] [facility] [id number] [place] [address] Referral ID Status Reason Start Date Expiration Date Visits Requested Visits Authorized [id number] Authorized Auto-Generat ed Referral 07/04/2024 06/03/2025 1 1 [facility] for referral (narrative)* Outpatient Procedure (Routine) - New Request Specialty Diagnoses / Procedures Referred By Contac t Referred To Contact [facility] Diagnoses PAD (peripheral artery disease) ([facility]) Procedures PVR ANK PRESS GRACIELA VAS LAB NON-INVAS PHYSIOLOGIC STD EXTREMITY ART 2 LEVEL Dari Esparza, DO [address] [place] [address] [facility] [place] [id number] Referral ID Status Reason Start Date Expiration Date Visits Requested Visits Authorized [id number] New Request Auto-Generat ed Referral 07/25/2024 07/25/2025 1 1 * Outpatient Procedure (Routine) - New Request Specialty Diagnoses / Procedures Referred By Contac t Referred To Contact [facility] Diagnoses PAD (peripheral artery disease) ([facility]) Procedures US LEG ARTERIAL PERIPH UNL VAS LAB DUP-SCAN LXTR ART/ARTL BPGS UNI/LMTD STUDY Dari Esparza, DO [address] [place] [address] [place] [id number] Referral ID Status Reason Start Date Expiration Date Visits Requested Visits Authorized [id number] New Request Auto-Generat ed Referral 07/25/2024 07/25/2025 1 1 [facility] for referral (narrative)* Medication Prior Authorization - Pending Review Specialty Diagnoses / Procedures Referred By Contac t Referred To Contact Jeanne Whitehead MD [address] [place] [id number] Phone: tel: fax: Referral ID Status Reason Start Date Expiration Date V isits Requested Visits Authorized [id number] Pending Review 1 1 [facility] for referral (narrative)No reason for referral information [facility] Work Phone: Chief Complaint and Reason for Visit Chief Complaint LOWER EXTREMITY Chief Complaint LEG PAIN Chief Complaint Admit Date LAB WORK June 26, 2024 7: 30am LAB WORK June 27, 2024 5 :00am LABWORK July 07, 2024 5 :00am LONGTERM LAB WORK July 11, 2024 5:00am LONGTERM LAB WORK July 14, 2024 5:00am LONGTERM LAB WORK July 15, 2024 4:00am LABWORK July 21, 2024 5 :00am LONGTERM LAB WORK July 29 5:00am LABWORK August 04, 2024 5:00am LONGTERM LAB WORK September 23, 2024 4: 00am Chief Complaint Admit Date LABWORK July 07, 2024 5 :00am LONGTERM LAB WORK July 11, 2024 5:00am LONGTERM LAB WORK July 14, 2024 5:00am LONGTERM LAB WORK July 15, 2024 4:00am LABWORK July 21, 2024 5 :00am LONGTERM LAB WORK July 29 5:00am LABWORK August 04, 2024 5:00am LONGTERM LAB WORK September 23, 2024 4: 00am LONGTERM LAB WORK 2024 6 :50am LABWORK October 13, 2024 5:0 0am Chief Complaint Admit Date LABWORK July 21, 2024 5 :00am LONGTERM LAB WORK July 29 5:00am LABWORK August 04, 2024 5:00am LONGTERM LAB WORK September 23, 2024 4: 00am LONGTERM LAB WORK 2024 6 :50am LONGTERM LAB WORK October 06, 2024 4 :00am LABWORK October 13, 2024 5:0 0am LABWORK October 27, 2024 5:00a m Chief Complaint Admit Date LONGTERM LAB WORK July 29 5:00am LABWORK August 04, 2024 5:00am LONGTERM LAB WORK September 23, 2024 4: 00am LONGTERM LAB WORK 2024 6 :50am LONGTERM LAB WORK October 06, 2024 4 :00am LABWORK October 13, 2024 5:0 0am LONGTERM LAB WORK October 20, 2024 4:00 am LABWORK October 27, 2024 5:00a m Family History No Family History Records Found Relationship Condition Age at Onset Recorded Date/T sage Unknown Family History?No pertinent history Unkno wn October 24, 2014 9:07pm Family History?No pertinent history Unkno wn September 05, 2015 6:19pm Advance Directives No Advanced Directives Records Found Advance Directive Response Recorded Date/ Time Advance Directives No September 04, 016 1:33pm Living Will No December 20, 2021 1 1:06am Power of Shoe Coverer No December 20, 2021 11:06am Advance Directive Response Recorded Date/ Time Advance Directives No September 04, 016 1:33pm Living Will No November 19, 2022 5 :07am Power of Shoe Coverer No November 19, 2022 5:07am Date Activated Date Inactivated Comments 05/24/2024 5:30 AM Question Answer Comments Full Code Order Discussed With: Patient Date Activated Date Inactivated Comments 05/24/2024 5:30 AM 06/02/2024 12:58 PM Question Answer Comments Full Code Order Discussed With: Patient Date Activated Date Inactivated Comments 05/24/2024 5:30 AM 06/02/2024 12:58 PM Advance Directive Response Recorded Date/ Time Advance Directives No September 04 016 1:33pm Summary Purpose Additional Source Comments Goals (unrecognized section and content) Goals may be documented in a n alternate sectionGoals may be documented in an alternate sectionGoals may be documented in an alternate sectionGoals may be documented in an alternate sectionGoals may be documented in an alternate sectionGoals may be documented in an alternate sectionGoals may be documented in an alternate sectionGoals may be documented in an alternate section Care Teams (unrecognized sec tion and content) Team Status: Active Member Role Status Dates [facility] Family Provider Active [facility] Primary Care Provider Active Team Status: Inactive Member Role Status Dates [facility] Primary Care Provider Active Dr. Christopher Fontaine , DO Emergency Provider Active [employer] Relationship Specialty Start Date End Date [facility] [address] [place] [address] PCP - General 05/23/24 [employer] Relationship Specialty Start Date End Date [facility] [address] [place] [address] PCP - General 05/23/24 [employer] Relationship Specialty Start Date End Date [place] [address] [place], [place] [address] PCP - General 05/23/24 [employer] Relationship Specialty Start Date End Date [place] [address] [facility] [place] [address] PCP - General 05/23/24 [employer] Relationship Specialty Start Date End Date [place] [address] [facility] [place] [address] PCP - General 05/23/24 [employer] Relationship Specialty Start Date End Date [place] [address] [facility] [place] [address] PCP - General 05/23/24 [employer] Relationship Specialty Start Date End Date [place] [address] [facility] [place], [place] [address] PCP - General 05/23/24 [employer] Relationship Specialty Start Date End Date [place] [address] [place], [place] [address] PCP - General 05/23/24 [employer] Relationship Specialty Start Date End Date [place] [address] [place] [address] PCP - General 05/23/24 [employer] Relationship Specialty Start Date End Date [place] [address] [place], [place] [address] PCP - General 05/23/24 [employer] Relationship Specialty Start Date End Date [place] [address] [place] [address] PCP - General 05/23/24 [employer] Relationship Specialty Start Date End Date [place] [address] [place] [address] PCP - General 05/23/24 [employer] Relationship Specialty Start Date End Date [place] [address] [place] [address] PCP - General 05/23/24 Team Status: Active Member Role Status Dates [facility] Primary Care Provider Active Start: June 26, 2024 Melo RHOADES Attending Provider Active Star t: June 26, 2024 Team Status: Active Member Role Status Dates [facility] Primary Care Provider Active Start: June 27, 2024 Melo RHOADES Attending Provider Active Star t: June 27, 2024 Team Status: Active Member Role Status Dates [facility] Primary Care Provider Active Start: July 07, 2024 Melo RHOADES Attending Provider Active Star t: July 07, 2024 Team Status: Active Member Role Status Dates [facility] Primary Care Provider Active Start: July 11, 2024 Melo RHOADES Attending Provider Active Star t: July 11, 2024 Team Status: Active Member Role Status Dates [facility] Primary Care Provider Active Start: July 14, 2024 Melo RHOADES Attending Provider Active Star t: July 14, 2024 Team Status: Active Member Role Status Dates [facility] Primary Care Provider Active Start: July 15, 2024 Melo RHOADES Attending Provider Active Star t: July 15, 2024 Melo RHOADES Referring Provider Active Star t: July 15, 2024 Team Status: Active Member Role Status Dates [facility] Primary Care Provider Active Start: July 21, 2024 Melo RHOADES Attending Provider Active Star t: July 21, 2024 Team Status: Active Member Role Status Dates [facility] Primary Care Provider Active Start: July 29, 2024 Melo RHOADES Attending Provider Active Star t: July 29, 2024 Team Status: Active Member Role Status Dates [facility] Primary Care Provider Active Start: August 04, 2024 Melo RHOADES Attending Provider Active Star t: August 04, 2024 Team Status: Inactive Member Role Status Dates [facility] Primary Care Provider Active Start: September 23, 2024 End: September 23, 2024 Melo RHOADES Attending Provider Active Star t: September 23, 2024 End: September 23, 2024 Melo RHOADES Referring Provider Active Star t: September 23, 2024 End: September 23, 2024 Team Status: Active Member Role Status Dates [facility] Primary Care Provider Active Start: 2024 Melo RHOADES Attending Provider Active Star t: 2024 Team Status: Active Member Role Status Dates [facility] Primary Care Provider Active Start: October 06, 2024 Melo RHOADES Attending Provider Active Star t: October 06, 2024 Team Status: Active Member Role Status Dates [facility] Primary Care Provider Active Start: October 13, 2024 Melo RHOADES Attending Provider Active Star t: October 13, 2024 Team Status: Active Member Role Status Dates [facility] Primary Care Provider Active Start: October 20, 2024 Melo RHOADES Attending Provider Active Star t: October 20, 2024 Team Status: Inactive Member Role Status Dates [facility] Primary Care Provider Active Start: 2024 End: 2024 Melo RHOADES Attending Provider Active Star t: 2024 End: 2024 Team Status: Active Member Role Status Dates [facility] Primary Care Provider Active Start: October 27, 2024 Melo RHOADES Attending Provider Active Star t: October 27, 2024 Team Status: Inactive Member Role Status Dates [facility] Primary Care Provider Active Start: October 13, 2024 End: October 13, 2024 Melo RHOADES Attending Provider Active Star t: October 13, 2024 End: October 13, 2024 Team Status: Active Member Role Status Dates [facility] Primary Care Provider Active Start: October 06, 2024 Melo RHOADES Attending Provider Active Star t: October 06, 2024 Melo RHOADES Referring Provider Active Star t: October 06, 2024 Team Status: Inactive Member Role Status Dates [facility] Primary Care Provider Active Start: October 27, 2024 End: October 27, 2024 Melo RHOADES Attending Provider Active Star t: October 27, 2024 End: October 27, 2024 Team Status: Inactive Member Role Status Dates [facility] Primary Care Provider Active Start: October 06, 2024 End: October 06, 2024 Melo RHOADES Attending Provider Active Star t: October 06, 2024 End: October 06, 2024 Melo RHOADES Referring Provider Active Star t: October 06, 2024 End: October 06, 2024 Team Status: Inactive Member Role Status Dates [facility] Primary Care Provider Active Start: October 20, 2024 End: October 20, 2024 Melo RHOADES Attending Provider Active Star t: October 20, 2024 End: October 20, 2024 Melo RHOADES Referring Provider Active Star t: October 20, 2024 End: October 20, 2024 Source Comments (unrecognize d section and content) In the event this informatio n is protected by the Federal Confidentiality of Alcohol and Drug Abuse Patient Records regulations: The Federal rules restrict any use of the information to criminally investigate or prosecute any alcohol or drug abuse patient.[facility] the event this information is protected by the Federal Confidentiality of Alcohol and Drug Abuse Patient Records regulations: The Federal rules restrict any use of the information to criminally investigate or prosecute any alcohol or drug abuse patient.[facility] the event this information is protected by the Federal Confidentiality of Alcohol and Drug Abuse Patient Records regulations: The Federal rules restrict any use of the information to criminally investigate or prosecute any alcohol or drug abuse patient.[facility] the event this information is protected by the Federal Confidentiality of Alcohol and Drug Abuse Patient Records regulations: The Federal rules restrict any use of the information to criminally investigate or prosecute any alcohol or drug abuse patient.[facility] Center[facility] the event this information is protected by the Federal Confidentiality of Alcohol and Drug Abuse Patient Records regulations: The Federal rules restrict any use of the information to criminally investigate or prosecute any alcohol or drug abuse patient.[facility] Center[facility] the event this information is protected by the Federal Confidentiality of Alcohol and Drug Abuse Patient Records regulations: The Federal rules restrict any use of the information to criminally investigate or prosecute any alcohol or drug abuse patient.[facility] Center[facility] the event this information is protected by the Federal Confidentiality of Alcohol and Drug Abuse Patient Records regulations: The Federal rules restrict any use of the information to criminally investigate or prosecute any alcohol or drug abuse patient.[facility] Center[facility] the event this information is protected by the Federal Confidentiality of Alcohol and Drug Abuse Patient Records regulations: The Federal rules restrict any use of the information to criminally investigate or prosecute any alcohol or drug abuse patient.[facility] the event this information is protected by the Federal Confidentiality of Alcohol and Drug Abuse Patient Records regulations: The Federal rules restrict any use of the information to criminally investigate or prosecute any alcohol or drug abuse patient.[facility] Center[facility] the event this information is protected by the Federal Confidentiality of Alcohol and Drug Abuse Patient Records regulations: The Federal rules restrict any use of the information to criminally investigate or prosecute any alcohol or drug abuse patient.[facility] Center[facility] the event this information is protected by the Federal Confidentiality of Alcohol and Drug Abuse Patient Records regulations: The Federal rules restrict any use of the information to criminally investigate or prosecute any alcohol or drug abuse patient.[facility] Center[facility] the event this information is protected by the Federal Confidentiality of Alcohol and Drug Abuse Patient Records regulations: The Federal rules restrict any use of the information to criminally investigate or prosecute any alcohol or drug abuse patient.[facility] Center[facility] the event this information is protected by the Federal Confidentiality of Alcohol and Drug Abuse Patient Records regulations: The Federal rules restrict any use of the information to criminally investigate or prosecute any alcohol or drug abuse patient.[facility] Center[facility] the event this information is protected by the Federal Confidentiality of Alcohol and Drug Abuse Patient Records regulations: The Federal rules restrict any use of the information to criminally investigate or prosecute any alcohol or drug abuse patient.[facility] Reason for Visit (unrecogniz ed section and content) Reason Comments Orders Reason Comments CoPat Start Reason Comments Wound Check Bilateral feet Reason Comments COPAT MANAGEMENT FOR [facility] USE ONLY COPAT MANAGEMENT FOR [facility] USE ONLY Reason Comments Patient Update Reason Comments Wound Check Left Foot & Right BK A Reason Comments Wound Check Left foot Reason Comments Post Op Post angio f/u Specialty Diagnoses / Procedures Referred By Contac t Referred To Contact Vascular Surgery / VASCULAR SURGERY Diagnoses POST ANGIOGRAM FOLLOW UPWITH TESTING Procedures EST [facility] PATIENT Marsha Lucas DO [address] [place] [address] Marsha Lucas, DO [address] [place] [address] Referral ID Status Reason Start Date Expiration Date V isits Requested Visits Authorized [id number] New Request 07/25/2024 10/27/2024 1 1 Reason Comments Wound Check Left foot. Reason Comments Results Reason Comments CoPat Management FOR [facility] USE ONLY Reason Comments Wound Check Left toe (unrecognized sect ion and content) No Status Records FoundNo Status Records FoundNo Status Records FoundNo Status Records Found INFORMATION SOURCE (unrecogn ized section and content) DATE CREATED AUTHOR 07/27/2024 [facility] DATE CREATED AUTHOR AUTHOR'S ORGANIZ ATION 10/15/[address] [facility] DATE CREATED AUTHOR AUTHOR'S ORGANIZ ATION 12/18/2024 [facility] DATE CREATED AUTHOR AUTHOR'S ORGANIZ ATION 01/28/2025 [facility] FOR RECORDS PERTAINING TO PATIENTS WHO ARE OR HAVE BEEN ENROLLED IN A CHEMICAL DEPENDENCY/SUBSTANCEABUSE PROGRAM, SOME INFORMATION MAY BE OMITTED. This clinical summary was aggregated from multiple sources. Caution should be exercised in using it in the provision of clinical care. This summary normalizes information from multiple sources, and as a consequence, information in this document may materially change the coding, format and clinical context of patient data. In addition, data may be omitted in some cases. CLINICAL DECISIONS SHOULD BE BASED ON THE PRIMARY CLINICAL RECORDS. [facility]. provides no warranty or guarantee of the accuracy or completeness of information in this document.
[2025-02-02 09:00] LABS: Hematocrit 47.6 % (40-54); Hemoglobin 15.0 g/dL (13.0-16.5); Immature Granulocytes Count 0.060 X10^3/uL (0.0-0.0); Mean Corp Hgb Conc 31.5 g/dL (32-36); Mean Corpuscular Volume 84.0 fL (80-94); Mean Platelet Vol. 10.3 fl (6.2-12.0); NRBC Flagged by Analyzer 0 % (0-5); Platelet Count 247 K/mm3 (150-450); RBC Distribution Width CV 18.1 % (11.6-14.6); RBC Distribution Width SD 54.2 fl (35.1-43.9); Red Blood Count 5.67 M/mm3 (4.6-6.2); White Blood Count 8.1 K/mm3 (4.4-11.0)
[2025-02-02 09:12] LABS: Anion Gap 11 (5-15); BUN 8 mg/dL (4-19); BUN/Creat Ratio 8.7 RATIO (10-20); Calcium,Total 9.1 mg/dL (7.6-11.0); Carbon Dioxide 26.9 mmol/L (21.0-32.0); Chloride 102 mmol/L (98-108); Cholesterol 95 mg/dL (<=200); Glucose 118 mg/dL (70-99); Low Density Lipoprotein Calc. 19 mg/dL; Potassium 4.3 mmol/L (3.3-5.1); Triglycerides 157 mg/dL; Very Low Density Lipoprotein 31 mg/dL (5-40); cholesterol:hdl ratio screen 2.13
== END ==
LOC: OLS.ACW100 04:00
PROVIDERS: Referring Provider Family Medicine; Visit Provider Family Medicine
DX: M86.172 Other acute osteomyelitis, left ankle and foot (principal); M62.81 Muscle weakness (generalized); I70.201 Unspecified atherosclerosis of native arteries of extremities, right leg
CPT/HCPCS: 36415; 80048; 80061; 83036; 85025

== ENCOUNTER → 2025-02-04 05:00 | Outpatient (REF) | payer MEDICARE, MEDICAID, SELFPAY | LOC: OLS.ACW100 05:00 | PROVIDERS: Visit Provider Family Medicine | DX: M86.172 Other acute osteomyelitis, left ankle and foot (principal); M62.81 Muscle weakness (generalized); I70.201 Unspecified atherosclerosis of native arteries of extremities, right leg; Z48.89 Encounter for other specified surgical aftercare; T87.89 Other complications of amputation stump | CPT/HCPCS: 87070; 87077; 87186; 87205 ==

== ENCOUNTER → 2025-02-06 05:00 | Outpatient (REF) | payer MEDICARE, MEDICAID, SELFPAY ==
--- OUTSIDE RECORDS SUMMARY | 2025-02-06 04:58 | XMS RPT_ITS | CCD ---
Author Organization [facility] VERIFICATION SPECIALIST [facility] Care Team Providers Care Pan Dumper Name Role Phone University, [facility] Primary Care Provider [phone] DARI ESPARZA Attending Unavailable MARSHA LUCAS Referring Unavailable MARSHA LUCAS Referring Unavailable MARSHA LUCAS Referring Unavailable LONNY WILDER Primary Care Unavailable COLLEEN JAMES Admitting Unavailable TORI GRIGGS Attending Unavailable JEANNE WHITEHEAD F Consulting Unavailable JEANNE WHITEHEAD F Attending Unavailable PROVIDER, UNKNOWN Attending Unavailable CHARLEY JEANEN F Attending Unavailable PROVIDER, UNKNOWN Attending Unavailable CHARLEY, JEANNE F Attending Unavailable CHARLEY, JEANNE F Attending Unavailable [facility] Primary Care Provider UnavailMelo Jeffries Attending Provider UnavailMelo Jeffries Referring [place] Unavail[place]o Jeffries [place] UnavailMelo Jeffries Attending Provider UnavailMelo Jeffries Referring [place] UnavailMelo Jeffries Attending Provider [facility] SARAH Banerjee Admitting Unavailable TEDDY CONWAY Attending Unavailable ANY GRANT Consulting Unavaila ble MARSHA LUCAS Admitting Unavailable MARSHA LUCAS Attending Unavailable MARSHA LUCAS M Referring Unavailable [facility] Primary Care Unavailable Melo Holm Attending Unavailable [facility] Unavailable Luis F Turk Attending Unavailable [facility] [facility]available [facility] F [facility] [place] [facility]available Paris Salas NP Attending Unavailable [facility]available Giuliano Cisneros [facility] [place] [facility] Melo Holm Attending Unavailable Luis F Johnson Attending [facility] [place] [facility] [place] [facility] Melo Holm [facility] [place] [facility] Unavailable Melo Holm Attending Unavailable Melo Holm Attending Unavailable Melo Holm Referring [facility] [place] [facility] Un[facility] Melo Holm Att[facility] [place] [facility] Un[facility] Melo Holm [facility] [place] [facility] Melo Holm [facility] [place] [facility] Melo Holm Referring Unavailable Melo Holm [facility] [place] [facility] Un[place] Melo Holm Attending Unavailable Jair Johnsonongasael Attending [facility] [place] [facility] Un[facility] Jair Johnsonongasael Attending [facility] [place] [facility] Unavailable Burke Efewongbe Referring Unavailable Burke Efewongbe [facility] [place] [facility] Melo Holm Att[facility] [place] [facility] Melo Holm Att[facility] [place] [facility] Melo Holm Att[facility] [place] [facility] Un[facility] Melo Holm Referring Unavailable Melo Holm Attending Unavailable Burke Efewongbe [facility] [place] [facility] Un[place] HANDYMAN, [place] Attending [facility] [place] [facility] [place] HANDYMAN, [place] Attending [facility] [place] [facility] Un[facility] Burke RHOADES Efoly Attending Unavailabl e Burke RHOADES Efewongbe Attending [facility] [place] [facility] Un[facility] Oleghe JF Efewongbe Attending [facility] [place] [facility] Un[facility] Nicolee JF Efewongbe Attending [facility] [place] [facility] Un[facility] Melo Holm Att[facility] Un[facility] Melo Holm [facility] [place] [facility] Un[facility] Melo Holm [facility] Unavailable Melo Holm Referring Unavailable Melo Holm Attending Unavailable Nicolee JF Efterenceongasael Attending [facility] [place] [facility] [place] [facility] Un[facility] Melo Holm Attending Unavailable Luis F Johnson [facility] [place] [facility] [...] Attending [facility] [place] [facility] Luis F Johnson [facility] [place] [facility] Un[facility] Melo Holm [facility] [place] [facility] Un[facility] Melo Holm [facility] [place] [facility] Luis F Johnson [facility] [place] [facility] Un[facility] Melo Holm [facility] [place] [facility] Un[facility] Melo Holm [facility] [place] [facility] Unavailable Melo Holm Attending Unavailable Melo Holm Referring Unavailable Melo Holm Attending [facility] [place] [facility] Unavailable Allergies Allergy Classification Reported Allergen(s) Allergy Type Date of Onset Reaction(s) Facility (20 sources) heparin; Translations: [HEPARIN] Drug Allergy 3 Other: See Comments [facility] Comment on above: thrombocytopenia (7 sources) Nortriptyline Drug Allergy 3 PT UNSURE OF REACTION [facility] (7 sources) rivaroxaban Drug Allergy 3 PT UNSURE OF REACTION [facility] (13 sources) Amitriptyline; Translations: [AMITRIPTYLINE] Drug Allergy 5 Itching [facility] Work Phone: (1 source) heparin Drug Allergy 4 [facility] Repository (1 source) Nortriptyline Drug Allergy 4 [facility] Repository (1 source) rivaroxaban Drug Allergy 4 [facility] Repository Medications Current Medications Medication Drug Class(es) [...] PO AT BEDTIME October 26, 2014 12:00am Hjoysmzixi-Phekzfxd-Aksrkxqb ol [Budesonide 160 Mcg-Glycopyr 9 Mcg-Formot 4.8 Mcg/Actuation Hfa Inhaler] (20 sources) Corticosteroid, beta2-Adrenergic Agonist Start: 05-02-2024 Numyylxomk-Xcslqdya-Mahohtko ol [Budesonide 160 Mcg-Glycopyr 9 Mcg-Formot 4.8 Mcg/Actuation Hfa Inhaler] (Budesonide 160 Mcg-Glycopyr 9 Mcg-Formot 4.8 ) 160-9-4.8 mcg/actuation HFA aerosol inhaler Active NMA INHALATION May 02, 2024 1:00am Start: 02-19-2024 take 2 puff(s) by inhalation twice daily thjkaiyukh-hfvxmvdw-ykhkduonmi (BREZTRI) 160-9-4.8 mcg/actuation HFA aerosol inhaler Inhale [...] 2014 12:00am take 1 tablet by ran twice daily at mealtime carvedilol (COREG) 25 [...] 1:00am docusate sodium 50 mg / sennosides, mcfp 8.6 mg oral tablet (6 sources) Start: [...] tablet Active PO May 02, 2024 1:00am [place]-3 Fatty Acids-Vitamin E (FISH OIL) 1,000 mg cap (14 sources) [place]-3 Fatty Acids-Vitamin E (FISH OIL) 1,000 mg cap Take 1 capsule by mouth. Active [place]-3 Fatty Ac ids-Vitamin E (FISH OIL) 1,000 [...] 4 HOURS NEEDED as needed for Pain 10 August 27, 2018 12:00am August 28, 2018 12:00am August 29, 2018 12:08am Start: 08-27-2018 End: 08-29-2018 take 1 tablet by mouth every four hours as needed Hydrocodone-Acetaminophen Discontinued 1 TABLET PO EVERY 4 HOURS NEEDED 10 August 27, 2018 12:00am August 29, 2018 12:08am [...] Coronary arteriosclerosis; Translations: [Atherosclerotic heart disease of [place] coronary artery without angina pectoris] Onset: 4 [...] sources) Long-term current use of anticoagulant; Translations: [meterman (current) use of anticoagulants] 11-19-2022 Episodic Other [...] lower limb artery; Translations: [Unspecified atherosclerosis of [place] arteries of extremities, unspecified extremity] Onset: 4 [...] Anion gap [Moles/Vol] 10 mmol/L Normal 8-15 [facility] Comment on above: Order Comment: Speci men Type: BLOOD SPECIMENOrdering Facility: [facility] Address: [address] [place] [address] Performed By: #### 2 4321-2 ####[facility] LABORATORYCLIA [id number] [place] [address] [place] Calcium [Mass/Vol] 8.6 mg/dL Normal 8.5-10.2 [facility] Comment on above: Order Comment: Speci men Type: BLOOD SPECIMENOrdering Facility: [facility] Address: [address] [place] [address] Performed By: #### 2 4321-2 ####[facility] LABORATORYCLIA [id number] [place] [address] [place] Chloride [Moles/Vol] 102 mmol/L Normal 98-107 [facility] Comment on above: Order Comment: Speci men Type: BLOOD SPECIMENOrdering Facility: [facility] Address: [address] [place] [address] Performed By: #### 2 4321-2 ####[facility] LABORATORYCLIA [id number] [place] [address] [place] CO2 [Moles/Vol] 28 mmol/L Normal 22-30 [facility] Comment on above: Order Comment: Speci men Type: BLOOD SPECIMENOrdering Facility: [facility] Address: [address] [place] [address] Performed By: #### 2 4321-2 ####[facility] LABORATORYCLIA [id number] [place] [address] [place] Creatinine [Mass/Vol] 0.85 mg/dL Normal 0.73-1.22 [facility] Comment on above: Order Comment: Raudel carrillo Type: BLOOD SPECIMENOrdering Facility: [facility] Address: [address] [place] [address] Performed By: #### 2 4321-2 ####[facility] LABORATORYCLIA [id number] [place] [id number] [facility] Creatinine and Glomerular filtration rate.predicted panel (S/P/Bld) 95 mL/min/1.73m??? Normal >=60 [facility] Comment on above: Order Comment: Raudel carrillo Type: BLOOD SPECIMENOrdering Facility: [facility] Address: [address] [place] [address] Result Comment: Sachi mated Glomerular Filtration Rate [...] actual GFR. Performed By: #### 2 4321-2 ####[facility] LABORATORYCLIA [id number] [place] [address] [place] Glucose [Mass/Vol] 153 mg/dL High 74-99 [facility] Comment on above: Order Comment: Raudel carrillo Type: BLOOD SPECIMENOrdering Facility: [facility] Address: [address] [place] [address] Result Comment: The [place] Diabetes Association (ADA) provides guidance for cutoff [...] Standards of Medical Care in Diabetes 2016, [place] [employer]. Diabetes Care. 2016.39(Suppl 1). Performed By: #### 2 4321-2 ####[facility] LABORATORYCLIA [id number] [address] STATES [facility] Potassium [Moles/Vol] 4.2 mmol/L Normal 3.7-5.1 [facility] Comment on above: Order Comment: Speci men Type: BLOOD SPECIMENOrdering Facility: [facility] Address: [address] [place] [address] Performed By: #### 2 4321-2 ####[facility] LABORATORYCLIA [id number] [address] STATES [facility] Sodium [Moles/Vol] 140 mmol/L Normal 136-144 [facility] Comment on above: Order Comment: Payali lorena Type: BLOOD SPECIMENOrdering Facility: [facility] Address: [address] [place] [address] Performed By: #### 2 4321-2 ####[facility] LABORATORYCLIA [id number] [address] STATES [facility] Urea nitrogen [Mass/Vol] 17 mg/dL Normal 9-24 [facility] Comment on above: Order Comment: Speci men Type: BLOOD SPECIMENOrdering Facility: [facility] Address: [address] [place] [address] Performed By: #### 2 4321-2 ####[facility] LABORATORYCLIA [id number] [address] CBC panel Auto (Bld)on 12-08 Erythrocyte distribution width (RBC) [Ratio] 17.2 % High 11.5-15.0 [facility] Comment on above: Order Comment: Speci men Type: BLOOD SPECIMENOrdering Facility: [facility] Address: [address] [place] [address] Performed By: #### 5 8410-2 ####[facility] LABORATORYCLIA [id number] [address] Hematocrit (Bld) [Volume fraction] 42.5 % Normal 39.0-51.0 [facility] Comment on above: Order Comment: Speci men Type: BLOOD SPECIMENOrdering Facility: [facility] Address: [address] [place] [address] Performed By: #### 5 8410-2 ####[facility] LABORATORYCLIA [id number] [address] [place] Hemoglobin (Bld) [Mass/Vol] 13.3 g/dL Normal 13.0-17.0 [facility] Comment on above: Order Comment: Speci men Type: BLOOD SPECIMENOrdering Facility: [facility] Address: [address] [place] [address] Performed By: #### 5 8410-2 ####[facility] LABORATORYCLIA [id number] [place] [address] [place] MCH (RBC) [Entitic mass] 25.6 pg Low 26.0-34.0 [facility] Comment on above: Order Comment: Speci men Type: BLOOD SPECIMENOrdering Facility: [facility] Address: [address] [place] [address] Performed By: #### 5 8410-2 ####[facility] LABORATORYCLIA [id number] [place] [address] [place] MCHC (RBC) [Mass/Vol] 31.3 g/dL Normal 30.5-36.0 [facility] Comment on above: Order Comment: Speci men Type: BLOOD SPECIMENOrdering Facility: [facility] Address: [address] [place] [address] Performed By: #### 5 8410-2 ####[facility] LABORATORYCLIA [id number] [place] [address] [place] MCV (RBC) [Entitic vol] 81.9 fL Normal 80.0-100.0 [facility] Comment on above: Order Comment: Speci men Type: BLOOD SPECIMENOrdering Facility: [facility] Address: [address] [place] [address] Performed By: #### 5 8410-2 ####[facility] LABORATORYCLIA [id number] [place] [address] [place] Nucleated RBC (Bld) [#/Vol] 10*3/uL Normal <0.01 [facility] Comment on above: Order Comment: Speci men Type: BLOOD SPECIMENOrdering Facility: [facility] Address: [address] [place] [address] Performed By: #### 5 8410-2 ####[facility] LABORATORYCLIA [id number] [address] [place] Platelet mean volume (Bld) [Entitic vol] 10.0 fL Normal 9.0-12.7 [facility] Comment on above: Order Comment: Speci men Type: BLOOD SPECIMENOrdering Facility: [facility] Address: [address] [place] [address] Performed By: #### 5 8410-2 ####[facility] LABORATORYCLIA [id number] [address] [place] Platelets (Bld) [#/Vol] 246 10*3/uL Normal 150-400 [facility] Comment on above: Order Comment: Speci men Type: BLOOD SPECIMENOrdering Facility: [facility] Address: [address] [place] [address] Performed By: #### 5 8410-2 ####[facility] LABORATORYCLIA [id number] [place] [address] [place] RBC (Bld) [#/Vol] 5.19 10*6/uL Normal 4.20-6.00 [facility] Comment on above: Order Comment: Speci men Type: BLOOD SPECIMENOrdering Facility: [facility] Address: [address] [place] [address] Performed By: #### 5 8410-2 ####[facility] LABORATORYCLIA [id number] [address] [place] WBC (Bld) [#/Vol] 10.93 10*3/uL Normal 3.70-11.00 [facility] Comment on above: Order Comment: Speci men Type: BLOOD SPECIMENOrdering Facility: [facility] Address: [address] [place] [address] Performed By: #### 5 8410-2 ####[facility] LABORATORYCLIA [id number] [place] [address] [place] [address] [facility] Dayanna 12-08-2024 CN HNO ID: [id number] Author: TEDDY CONWAY MD Service: Hospital Medicine Author Type: Resident Type: Discharge Summary Filed: 12/10/2024 10:23 Note Text: Attestation signed by Teddy Conway MD at 12/10/2024 10:23 AM [facility] ATTENDING ATTESTATION: I saw and [...] Attending Provider: Teddy Conway MD Primary Service: Endy Grey REASON FOR HOSPITALIZATION: Acute respiratory failure [...] in 2009) -h/o DVT Patient presented to [facility] with a chief complaint of worsening [...] low dose DOAC. Will need records from [place] New Medications: Current Discharge Medication List LABS AND PROCEDURES PENDING AT DISCHARGE: No pending results. PATIENT CONDITION AT DISCHARGE: Stable DISCHARGE DISPOSITION: Group Home Facility WOUND/SURGICAL SITE CARE: Keep your dressing clean and dry DIET: Low Salt Low Fat Low Cholesterol Low Triglycerides Resume pre-hospital diet ACTIVITY: Resume pre-hospital activity ALLERGIES Allergen Reactions Heparin Other: See Comments HIIT New pt to [facility] on 05/23/24. Pt states allergy to [...] known as: LIPITOR bacitracin 500 unit/gram Pack lpcwmegugi-gxmuixav-o ormoterol 160-9-4.8 mcg/actuation HFA aerosol inhaler Commonly [...] IMDUR melatonin (more content not included)... Normal [facility] CONSULT PROGon 12-08-2024 CONSULT PROG HNO ID: [id number] Author: HOWARD DUBOIS RPh Service: Pharmacy Author [...] was receiving iv ertapenem and vancomycin at [facility] per the [place] prior to admission. I had spoken with [place] pharmacist and reviewed facility MAR. Patient had been on vancomycin 1.5g iv q12h in early November with a trough of 28.3, so dose was changed to 1g q12h. This regimen resulted in a trough of 24, so dose was changed to 1.75g iv q24h to begin on 12/03, the day he was admitted at [facility]. Vancomycin was held here the day [...] any questions, please contact Kelley AngelD [place] [phone]. . Age: [age] year old Allergies: ALLERGIES Allergen Reactions Heparin Other: See Comments HIIT New pt to [facility] on 05/23/24. Pt states allergy to [...] 28.1 (H) 06/06/2024 1355 14.8 Howard Dubois [facility] CONSULT PROG HNO ID: [id number] Author: ANY GRANT DO Service: Infectious Disease [...] Value Units Date/Time Respiratory Culture and Stain [[id number]] (Abnormal) Collected: 12/06/24 1226 Order Status: Completed Specimen: Sputum Updated: 12/07/24 0734 Culture, Respiratory Few Normal respiratory mickey present Gram Stain Moderate Mixed oral mickey Few Polymorphonuclear leukocytes Few Epithelial cells Resp (more content not included)... Normal [facility] NURSING PROGon 12-08-2024 NURSING PROG HNO ID: [id number] Author: JOO SANTANA RN Service: Nursing Author Type: Registered Nurse Type: Nursing Progress Note Filed: 12/08/2024 15:48 Note Text: SpO2 Ra at rest 90% SpO2 Ra on exertion 89% (stand pivot to chair) SpO2 91% 2L on Exertion (stand pivot to chair) Normal [facility] THERAPY NTon 12-08-2024 THERAPY NT HNO ID: [id number] Author: REYNA QUILES OTR/L Service: Occupational Therapy Author Type: Occupational Therapist Type: Therapy (PT/OT/Speech/Resp) Filed: 12/08/2024 09:41 Note Text: Occupational Therapy Evaluation Summary SERVICE DATE: 12/08/2024 SERVICE TIME: 856 to 914 ROOM: [place] [address] OT 6 Clicks Score: 18 DISCHARGE RECOMMENDATIONS [...] Time (minutes): 18 $ Evaluation - Moderate (22105) Billed Units: 1 unit TRAINING AND EDUCATION PROVIDED Bed Mobility, Benefits of In-Hospital Mobility, Discharge Planning, Disease Specific Education, Functional Mobility Involving ADLs, Lower Extremity Dressing, Safety/Judgment, Role of Occupational Therapy, Sitting Balance to Improve [place] with ADLs/Self-Care, Standing Balance to Improve [place] with ADLs/Self-Care, Transfer - Sit to Stand, [...] Visit: Bathing Training, Dressing Training SIGNATURE: Reyna Quiles OTR/L PATIENT NAME: Mitul Oakes DATE: December 08, 2024 TIME: 9:39 AM Normal [facility] Vancomycin random [Mass/Vol] on 12-08-2024 Vancomycin [Mass/Vol] 28.1 ug/mL High 10.0-20.0 [facility] Comment on above: Order Comment: Speci men Type: BLOOD SPECIMENOrdering Facility: [facility] Address: [address] [place] [address] Result Comment: Refe rence ranges and high/low indicator flags are provided as general guidelines only. The treating physician must determine appropriate target levels/dosing based on the specific clinical situation. Performed By: #### 4 091-5 ####[facility] LABORATORYCLIA [id number] [place] [address] [place] [facility] Basic metabolic 2000 panelon 12-07-2024 Anion gap [Moles/Vol] 8 mmol/L Normal 8-15 [facility] Comment on above: Order Comment: Speci men Type: BLOOD SPECIMENOrdering Facility: [facility] Address: [address] [place] [address] Performed By: #### 2 4321-2 ####[facility] LABORATORYCLIA [id number] [place] [address] [place] Calcium [Mass/Vol] 9.1 mg/dL Normal 8.5-10.2 [facility] Comment on above: Order Comment: Speci men Type: BLOOD SPECIMENOrdering Facility: [facility] Address: [address] [place] [address] Performed By: #### 2 4321-2 ####[facility] LABORATORYCLIA [id number] [place] [address] [place] Chloride [Moles/Vol] 98 mmol/L Normal 98-107 [facility] Comment on above: Order Comment: Speci men Type: BLOOD SPECIMENOrdering Facility: [facility] Address: [address] [place] [address] Performed By: #### 2 4321-2 ####[facility] LABORATORYCLIA [id number] [address] STATES [facility] CO2 [Moles/Vol] 31 mmol/L High 22-30 [facility] Comment on above: Order Comment: Speci men Type: BLOOD SPECIMENOrdering Facility: [facility] Address: [address] [place] [address] Performed By: #### 2 4321-2 ####[facility] LABORATORYCLIA [id number] [address] [place] OF [facility] Creatinine [Mass/Vol] 0.86 mg/dL Normal 0.73-1.22 [facility] Comment on above: Order Comment: Speci men Type: BLOOD SPECIMENOrdering Facility: [facility] Address: [address] [place] [address] Performed By: #### 2 4321-2 ####[facility]PITALCLIA [id number] [address] Creatinine and Glomerular filtration rate.predicted panel (S/P/Bld) 94 mL/min/1.73m??? Normal >=60 [facility] Comment on above: Order Comment: Speci men Type: BLOOD SPECIMENOrdering Facility: [facility] Address: [address] [place] [address] Result Comment: Sachi mated Glomerular Filtration Rate [...] actual GFR. Performed By: #### 2 4321-2 ####[facility] LABORATORYCLIA [id number] [address] Glucose [Mass/Vol] 175 mg/dL High 74-99 [facility] Comment on above: Order Comment: Speci men Type: BLOOD SPECIMENOrdering Facility: [facility] Address: [address] [place] [address] Result Comment: The [place] Diabetes Association (ADA) provides guidance for cutoff [...] Standards of Medical Care in Diabetes 2016, [place] [employer]. Diabetes Care. 2016.39(Suppl 1). Performed By: #### 2 4321-2 ####[facility] LABORATORYCLIA [id number] [place] [address] [place] Potassium [Moles/Vol] 4.2 mmol/L Normal 3.7-5.1 [facility] Comment on above: Order Comment: Speci men Type: BLOOD SPECIMENOrdering Facility: [facility] Address: [address] [place] [address] Performed By: #### 2 4321-2 ####[facility] LABORATORYCLIA [id number] [place] [address] [place] Sodium [Moles/Vol] 137 mmol/L Normal 136-144 [facility] Comment on above: Order Comment: Speci men Type: BLOOD SPECIMENOrdering Facility: [facility] Address: [address] [place] [address] Performed By: #### 2 4321-2 ####[facility] LABORATORYCLIA [id number] [place] [address] [place] Urea nitrogen [Mass/Vol] 16 mg/dL Normal 9-24 [facility] Comment on above: Order Comment: Speci men Type: BLOOD SPECIMENOrdering Facility: [facility] Address: [address] [place] [address] Performed By: #### 2 4321-2 ####[facility] LABORATORYCLIA [id number] [address] CBC panel Auto (Bld)on 12-07 Erythrocyte distribution width (RBC) [Ratio] 17.2 % High 11.5-15.0 [facility] Comment on above: Order Comment: Speci men Type: BLOOD SPECIMENOrdering Facility: [facility] Address: [address] [place] [address] Performed By: #### 5 8410-2 ####[facility] LABORATORYCLIA [id number] [address] Hematocrit (Bld) [Volume fraction] 41.3 % Normal 39.0-51.0 [facility] Comment on above: Order Comment: Speci men Type: BLOOD SPECIMENOrdering Facility: [facility] Address: [address] [place] [address] Performed By: #### 5 8410-2 ####[facility] LABORATORYCLIA [id number] [address] Hemoglobin (Bld) [Mass/Vol] 13.3 g/dL Normal 13.0-17.0 [facility] Comment on above: Order Comment: Speci men Type: BLOOD SPECIMENOrdering Facility: [facility] Address: [address] [place] [address] Performed By: #### 5 8410-2 ####[facility] LABORATORYCLIA [id number] [address] STATES [facility] MCH (RBC) [Entitic mass] 25.6 pg Low 26.0-34.0 [facility] Comment on above: Order Comment: Speci men Type: BLOOD SPECIMENOrdering Facility: [facility] Address: [address] [place] [address] Performed By: #### 5 8410-2 ####[facility] LABORATORYCLIA [id number] [address] MCHC (RBC) [Mass/Vol] 32.2 g/dL Normal 30.5-36.0 [facility] Comment on above: Order Comment: Speci men Type: BLOOD SPECIMENOrdering Facility: [facility] Address: [address] [place] [address] Performed By: #### 5 8410-2 ####[facility] LABORATORYCLIA [id number] [address] MCV (RBC) [Entitic vol] 79.4 fL Low 80.0-100.0 [facility] Comment on above: Order Comment: Speci men Type: BLOOD SPECIMENOrdering Facility: [facility] Address: [address] [place] [address] Performed By: #### 5 8410-2 ####[facility] LABORATORYCLIA [id number] [address] Nucleated RBC (Bld) [#/Vol] 10*3/uL Normal <0.01 [facility] Comment on above: Order Comment: Speci men Type: BLOOD SPECIMENOrdering Facility: [facility] Address: [address] [place] [address] Performed By: #### 5 8410-2 ####[facility] LABORATORYCLIA [id number] [address] Platelet mean volume (Bld) [Entitic vol] 9.8 fL Normal 9.0-12.7 [facility] Comment on above: Order Comment: Speci men Type: BLOOD SPECIMENOrdering Facility: [facility] Address: [address] [place] [address] Performed By: #### 5 8410-2 ####[facility] LABORATORYCLIA [id number] [address] Platelets (Bld) [#/Vol] 243 10*3/uL Normal 150-400 [facility] Comment on above: Order Comment: Speci men Type: BLOOD SPECIMENOrdering Facility: [facility] Address: [address] [place] [address] Performed By: #### 5 8410-2 ####[facility] LABORATORYCLIA [id number] [address] [place] RBC (Bld) [#/Vol] 5.20 10*6/uL Normal 4.20-6.00 [facility] Comment on above: Order Comment: Speci men Type: BLOOD SPECIMENOrdering Facility: [facility] Address: [address] [place] [address] Performed By: #### 5 8410-2 ####[facility] LABORATORYCLIA [id number] [address] OF [facility] WBC (Bld) [#/Vol] 8.36 10*3/uL Normal 3.70-11.00 [facility] Comment on above: Order Comment: Speci men Type: BLOOD SPECIMENOrdering Facility: [facility] Address: [address] [place] [address] Performed By: #### 5 8410-2 ####[facility] LABORATORYCLIA [id number] [address] Bacteria Spec Resp Culton Bacteria identified Respiratory culture Nom (Unsp spec) CULTURE, RESPIRATORY: Few Normal respiratory mickey present GRAM STAIN: Moderate Mixed oral mickey Few Polymorphonuclear leukocytes Few Epithelial cells Abnormal [facility] Comment on above: Performed By: #### 3 2355-0 #### [facility] CLIA [id number] [address] Bacteria identified Respiratory culture Nom (Unsp spec) CULTURE, RESPIRATORY: Few Normal respiratory mickey present GRAM STAIN: Moderate Mixed oral mickey Rare Polymorphonuclear leukocytes Few Epithelial cells Abnormal [facility] Comment on above: Performed By: #### 3 2355-0 ####[facility] LABORATORYCLIA [id number] [address] [place] Basic metabolic 2000 panelon 12-06-2024 Anion gap [Moles/Vol] 10 mmol/L Normal 8-15 [facility] Comment on above: Order Comment: Speci men Type: BLOOD SPECIMENOrdering Facility: [facility] Address: [address] [place] [address] Performed By: #### 2 4321-2 ####[facility] LABORATORYCLIA [id number] [address] [place] Calcium [Mass/Vol] 8.8 mg/dL Normal 8.5-10.2 [facility] Comment on above: Order Comment: Speci men Type: BLOOD SPECIMENOrdering Facility: [facility] Address: [address] [place] [address] Performed By: #### 2 4321-2 ####[facility] LABORATORYCLIA [id number] [place] [address] [place] Chloride [Moles/Vol] 97 mmol/L Low 98-107 [facility] Comment on above: Order Comment: Speci men Type: BLOOD SPECIMENOrdering Facility: [facility] Address: [address] [place] [address] Performed By: #### 2 4321-2 ####[facility] LABORATORYCLIA [id number] [address] [place] CO2 [Moles/Vol] 31 mmol/L High 22-30 [facility] Comment on above: Order Comment: Speci men Type: BLOOD SPECIMENOrdering Facility: [facility] Address: [address] [place] [address] Performed By: #### 2 4321-2 ####[facility] LABORATORYCLIA [id number] [address] [place] Creatinine [Mass/Vol] 0.85 mg/dL Normal 0.73-1.22 [facility] Comment on above: Order Comment: Speci men Type: BLOOD SPECIMENOrdering Facility: [facility] Address: [address] [place] [address] Performed By: #### 2 4321-2 ####[facility] LABORATORYCLIA [id number] [address] Creatinine and Glomerular filtration rate.predicted panel (S/P/Bld) 95 mL/min/1.73m??? Normal >=60 [facility] Comment on above: Order Comment: Speci men Type: BLOOD SPECIMENOrdering Facility: [facility] Address: [address] [place] [address] Result Comment: Sachi mated Glomerular Filtration Rate [...] actual GFR. Performed By: #### 2 4321-2 ####[facility]ORATORYCLIA [id number] [place] [address] [place] Glucose [Mass/Vol] 112 mg/dL High 74-99 [facility] Comment on above: Order Comment: Raudel carrillo Type: BLOOD SPECIMENOrdering Facility: [facility] Address: [address] [place] [address] Result Comment: The [place] [employer] (ADA) provides guidance for cutoff [...] Standards of Medical Care in Diabetes 2016, [place] [employer]. Diabetes Care. 2016.39(Suppl 1). Performed By: #### 2 4321-2 ####[facility] LABORATORYCLIA [id number] [place] [address] [place] Potassium [Moles/Vol] 4.0 mmol/L Normal 3.7-5.1 [facility] Comment on above: Order Comment: Raudel carrillo Type: BLOOD SPECIMENOrdering Facility: [facility] Address: [address] [id number] Performed By: #### 2 4321-2 ####[facility] LABORATORYCLIA [id number] [place] [address] [place] Sodium [Moles/Vol] 138 mmol/L Normal 136-144 [facility] Comment on above: Order Comment: Speci men Type: BLOOD SPECIMENOrdering Facility: [facility] Address: [address] [place] [address] Performed By: #### 2 4321-2 ####[facility] LABORATORYCLIA [id number] [address] [place] Urea nitrogen [Mass/Vol] 14 mg/dL Normal 9-24 [facility] Comment on above: Order Comment: Speci men Type: BLOOD SPECIMENOrdering Facility: [facility] Address: [address] [place] [address] Performed By: #### 2 4321-2 ####[facility] LABORATORYCLIA [id number] [address] [place] CBC panel Auto (Bld)on 12-06 Erythrocyte distribution width (RBC) [Ratio] 17.5 % High 11.5-15.0 [facility] Comment on above: Order Comment: Speci men Type: BLOOD SPECIMENOrdering Facility: [facility] Address: [address] [place] [address] Performed By: #### 5 8410-2 ####[facility] LABORATORYCLIA [id number] [address] [place] Hematocrit (Bld) [Volume fraction] 41.3 % Normal 39.0-51.0 [facility] Comment on above: Order Comment: Speci men Type: BLOOD SPECIMENOrdering Facility: [facility] Address: [address] [place] [address] Performed By: #### 5 8410-2 ####[facility] LABORATORYCLIA [id number] [address] [place] Hemoglobin (Bld) [Mass/Vol] 13.3 g/dL Normal 13.0-17.0 [facility] Comment on above: Order Comment: Speci men Type: BLOOD SPECIMENOrdering Facility: [facility] Address: [address] [place] [address] Performed By: #### 5 8410-2 ####[facility] LABORATORYCLIA [id number] [address] MCH (RBC) [Entitic mass] 26.0 pg Normal 26.0-34.0 [facility] Comment on above: Order Comment: Speci men Type: BLOOD SPECIMENOrdering Facility: [facility] Address: [address] [place] [address] Performed By: #### 5 8410-2 ####[facility] LABORATORYCLIA [id number] [address] STATES [facility] MCHC (RBC) [Mass/Vol] 32.2 g/dL Normal 30.5-36.0 [facility] Comment on above: Order Comment: Speci men Type: BLOOD SPECIMENOrdering Facility: [facility] Address: [address] [place] [address] Performed By: #### 5 8410-2 ####[facility] LABORATORYCLIA [id number] [address] MCV (RBC) [Entitic vol] 80.8 fL Normal 80.0-100.0 [facility] Comment on above: Order Comment: Speci men Type: BLOOD SPECIMENOrdering Facility: [facility] Address: [address] [place] [address] Performed By: #### 5 8410-2 ####[facility] LABORATORYCLIA [id number] [address] Nucleated RBC (Bld) [#/Vol] 10*3/uL Normal <0.01 [facility] Comment on above: Order Comment: Speci men Type: BLOOD SPECIMENOrdering Facility: [facility] Address: [address] [place] [address] Performed By: #### 5 8410-2 ####[facility] LABORATORYCLIA [id number] [address] Platelet mean volume (Bld) [Entitic vol] 9.9 fL Normal 9.0-12.7 [facility] Comment on above: Order Comment: Speci men Type: BLOOD SPECIMENOrdering Facility: [facility] Address: [address] [place] [address] Performed By: #### 5 8410-2 ####[facility] LABORATORYCLIA [id number] [place] [id number] [facility] Platelets (Bld) [#/Vol] 253 10*3/uL Normal 150-400 [facility] Comment on above: Order Comment: Speci men Type: BLOOD SPECIMENOrdering Facility: [facility] Address: [address] [place] [address] Performed By: #### 5 8410-2 ####[facility] LABORATORYCLIA [id number] [address] [place] RBC (Bld) [#/Vol] 5.11 10*6/uL Normal 4.20-6.00 [facility] Comment on above: Order Comment: Speci men Type: BLOOD SPECIMENOrdering Facility: [facility] Address: [address] [place] [address] Performed By: #### 5 8410-2 ####[facility] LABORATORYCLIA [id number] [address] WBC (Bld) [#/Vol] 9.94 10*3/uL Normal 3.70-11.00 [facility] Comment on above: Order Comment: Speci men Type: BLOOD SPECIMENOrdering Facility: [facility] Address: [address] [place] [address] Performed By: #### 5 8410-2 ####[facility] LABORATORYCLIA [id number] [address] CONSULT PROGon 12-06-2024 CONSULT PROG HNO ID: [id number] Author: HELENE LAZO RPh Service: Pharmacy Author [...] questions, please contact Helene Lazo PharmD via [employer]. Age: [age] year old Allergies: ALLERGIES Allergen Reactions Heparin Other: See Comments HIIT New pt to [facility] on 05/23/24. Pt states allergy to [...] 06/06/2024 1355 14.8 06/02/2024 1008 16.9 Helene Vazquezamandalaxmi, [facility] Normal [facility] NURSING PROGon 12-06-2024 NURSING PROG HNO ID: [id number] Author: RAMU TURK, RN Service: Nursing Author Type: Registered Nurse Type: Nursing Progress Note Filed: 12/06/2024 22:03 Note Text: Pt c/o anxiety and requests "something to help anxiety and make me sleep". Page placed to dermatological surgeon 2124- pt refusing to take ordered melatonin for sleep, stating it "does nothing" and requests something that actually works." Page placed to dermatological surgeon 2129- pt states he takes trazodone at his facility and not sure why it was never ordered, physician made aware. 2201- Pt agitated and insisting to speak with physician regarding ordered medications Normal [facility] Basic metabolic 2000 panelon 12-05-2024 Anion gap [Moles/Vol] 7 mmol/L Low 8-15 [facility] Comment on above: Order Comment: Speci men Type: BLOOD SPECIMENOrdering Facility: [facility] Address: [address] [place] [address] Performed By: #### 2 4321-2 ####[facility] LABORATORYCLIA [id number] [place] [address] [place] Calcium [Mass/Vol] 8.8 mg/dL Normal 8.5-10.2 [facility] Comment on above: Order Comment: Speci men Type: BLOOD SPECIMENOrdering Facility: [facility] Address: [address] [place] [address] Performed By: #### 2 4321-2 ####[facility] LABORATORYCLIA [id number] [place] [address] [place] Chloride [Moles/Vol] 99 mmol/L Normal 98-107 [facility] Comment on above: Order Comment: Speci men Type: BLOOD SPECIMENOrdering Facility: [facility] Address: [address] [place] [address] Performed By: #### 2 4321-2 ####[facility] LABORATORYCLIA [id number] [address] [place] CO2 [Moles/Vol] 29 mmol/L Normal 22-30 [facility] Comment on above: Order Comment: Speci men Type: BLOOD SPECIMENOrdering Facility: [facility] Address: [address] [place] [address] Performed By: #### 2 4321-2 ####[facility] LABORATORYCLIA [id number] [address] [place] Creatinine [Mass/Vol] 0.90 mg/dL Normal 0.73-1.22 [facility] Comment on above: Order Comment: Speci men Type: BLOOD SPECIMENOrdering Facility: [facility] Address: [address] [place] [address] Performed By: #### 2 4321-2 ####[facility] LABORATORYCLIA [id number] [address] Creatinine and Glomerular filtration rate.predicted panel (S/P/Bld) 93 mL/min/1.73m??? Normal >=60 [facility] Comment on above: Order Comment: Speci men Type: BLOOD SPECIMENOrdering Facility: [facility] Address: [address] [place] [address] Result Comment: Sachi mated Glomerular Filtration Rate [...] actual GFR. Performed By: #### 2 4321-2 ####[facility] LABORATORYCLIA [id number] [address] [place] Glucose [Mass/Vol] 103 mg/dL High 74-99 [facility] Comment on above: Order Comment: Speci men Type: BLOOD SPECIMENOrdering Facility: [facility] Address: [address] [place] [address] Result Comment: The [place] [employer] (ADA) provides guidance for cutoff [...] Standards of Medical Care in Diabetes 2016, [place] [employer]. Diabetes Care. 2016.39(Suppl 1). Performed By: #### 2 4321-2 ####[facility]ORATORYCLIA [id number] [address] [place] Potassium [Moles/Vol] 4.3 mmol/L Normal 3.7-5.1 [facility] Comment on above: Order Comment: Speci men Type: BLOOD SPECIMENOrdering Facility: [facility] Address: [address] [place] [address] Performed By: #### 2 4321-2 ####[facility] LABORATORYCLIA [id number] [address] STATES OF [facility] Sodium [Moles/Vol] 135 mmol/L Low 136-144 [facility] Comment on above: Order Comment: Payali men Type: BLOOD SPECIMENOrdering Facility: [facility] Address: [address] [place] [address] Performed By: #### 2 4321-2 ####[facility] LABORATORYCLIA [id number] [address] STATES [facility] Urea nitrogen [Mass/Vol] 14 mg/dL Normal 9-24 [facility] Comment on above: Order Comment: Payali men Type: BLOOD SPECIMENOrdering Facility: [facility] Address: [address] [place] [address] Performed By: #### 2 4321-2 ####[facility] LABORATORYCLIA [id number] [address] [place] CBC panel Auto (Bld)on 06-20 -2025 Erythrocyte distribution width (RBC) [Ratio] 17.6 % High 11.5-15.0 [facility] Comment on above: Order Comment: Speci men Type: BLOOD SPECIMENOrdering Facility: [facility] Address: [address] [place] [address] Performed By: #### 5 8410-2 ####[facility] LABORATORYCLIA [id number] [address] Hematocrit (Bld) [Volume fraction] 41.5 % Normal 39.0-51.0 [facility] Comment on above: Order Comment: Speci men Type: BLOOD SPECIMENOrdering Facility: [facility] Address: [address] [place] [address] Performed By: #### 5 8410-2 ####[facility] LABORATORYCLIA [id number] [address] STATES OF [facility] Hemoglobin (Bld) [Mass/Vol] 13.4 g/dL Normal 13.0-17.0 [facility] Comment on above: Order Comment: Speci men Type: BLOOD SPECIMENOrdering Facility: [facility] Address: [address] [place] [address] Performed By: #### 5 8410-2 ####[facility] LABORATORYCLIA [id number] [address] MCH (RBC) [Entitic mass] 26.1 pg Normal 26.0-34.0 [facility] Comment on above: Order Comment: Speci men Type: BLOOD SPECIMENOrdering Facility: [facility] Address: [address] [place] [address] Performed By: #### 5 8410-2 ####[facility] LABORATORYCLIA [id number] [address] [place] MCHC (RBC) [Mass/Vol] 32.3 g/dL Normal 30.5-36.0 [facility] Comment on above: Order Comment: Speci men Type: BLOOD SPECIMENOrdering Facility: [facility] Address: [address] [place] [address] Performed By: #### 5 8410-2 ####[facility] LABORATORYCLIA [id number] [address] [place] MCV (RBC) [Entitic vol] 80.9 fL Normal 80.0-100.0 [facility] Comment on above: Order Comment: Speci men Type: BLOOD SPECIMENOrdering Facility: [facility] Address: [address] [place] [address] Performed By: #### 5 8410-2 ####[facility] LABORATORYCLIA [id number] [address] [place] Nucleated RBC (Bld) [#/Vol] 10*3/uL Normal <0.01 [facility] Comment on above: Order Comment: Speci men Type: BLOOD SPECIMENOrdering Facility: [facility] Address: [address] [place] [address] Performed By: #### 5 8410-2 ####[facility] LABORATORYCLIA [id number] [address] Platelet mean volume (Bld) [Entitic vol] 9.9 fL Normal 9.0-12.7 [facility] Comment on above: Order Comment: Speci men Type: BLOOD SPECIMENOrdering Facility: [facility] Address: [address] [place] [address] Performed By: #### 5 8410-2 ####[facility] LABORATORYCLIA [id number] [address] Platelets (Bld) [#/Vol] 270 10*3/uL Normal 150-400 [facility] Comment on above: Order Comment: Speci men Type: BLOOD SPECIMENOrdering Facility: [facility] Address: [address] [place] [address] Performed By: #### 5 8410-2 ####[facility] LABORATORYCLIA [id number] [address] [place] RBC (Bld) [#/Vol] 5.13 10*6/uL Normal 4.20-6.00 [facility] Comment on above: Order Comment: Speci men Type: BLOOD SPECIMENOrdering Facility: [facility] Address: [address] [id number] Performed By: #### 5 8410-2 ####[facility] LABORATORYCLIA [id number] [place] [id number] [facility] [place] WBC (Bld) [#/Vol] 14.05 10*3/uL High 3.70-11.00 [facility] Comment on above: Order Comment: Speci men Type: BLOOD SPECIMENOrdering Facility: [facility] Address: [address] [place] [address] Performed By: #### 5 8410-2 ####[facility] LABORATORYCLIA [id number] [place] [address] [facility] CONSULT PROGon 12-05-2024 CONSULT PROG HNO ID: [id number] Author: ANY GRANT DO Service: Infectious Disease [...] Expanded Respiratory Pathogen Panel by PCR, Expedited [[id number]] (Abnormal) Collected: 12/03/24 1717 Order Status: Completed Specimen: Swab from Nasopharynx Updated: 12/04/24 1241 SARS-CoV-2 (Agent of COVID-19) RNA Not detected Influenza A RNA Not detected Influenza B RNA Not detected Respiratory syncytial virus (RSV) RNA Not detected Human metapneumovirus (hMPV) RNA Not de (more content not included)... Normal [facility] Gas and Carbon monoxide pane l (BldV)on 12-05-2024 Base excess Calc (BldV) [Moles/Vol] 7 mmol/L High 0-2 [facility] Comment on above: Order Comment: Speci men Type: VENOUS BLOOD SPECIMENOrdering Facility: [facility] Address: [address] [place] [address] Performed By: #### 2 4344-4 ####[facility] LABORATORYCLIA [id number] [address] [place] Body temperature 98.24 [degF] Normal [facility] Comment on above: Order Comment: Speci men Type: VENOUS BLOOD SPECIMENOrdering Facility: [facility] Address: [address] [place] [address] Performed By: #### 2 4344-4 ####[facility] LABORATORYCLIA [id number] [address] [place] Calcium.ionized (BldV) [Mass/Vol] 1.18 mmol/L Normal 1.08-1.30 [facility] Comment on above: Order Comment: Speci men Type: VENOUS BLOOD SPECIMENOrdering Facility: [facility] Address: [address] [place] [address] Performed By: #### 2 4344-4 ####[facility] LABORATORYCLIA [id number] [address] STATES [facility] Calcium.ionized adjusted to pH 7.4 (BldA) [Moles/Vol] 1.15 mmol/L Normal 1.08-1.30 [facility] Comment on above: Order Comment: Speci men Type: VENOUS BLOOD SPECIMENOrdering Facility: [facility] Address: [address] [place] [address] Performed By: #### 2 4344-4 ####[facility] LABORATORYCLIA [id number] [address] [place] Carboxyhemoglobin (BldV) [Mass fraction] 1.8 % Normal 0.0-2.0 [facility] Comment on above: Order Comment: Speci men Type: VENOUS BLOOD SPECIMENOrdering Facility: [facility] Address: [address] [place] [address] Result Comment: Carb oxyhemoglobin Reference Range for Smokers: 2.0-8.0% Performed By: #### 2 4344-4 ####[facility] LABORATORYCLIA [id number] [address] [place] Chloride [Moles/Vol] 99 mmol/L Normal 97-105 [facility] Comment on above: Order Comment: Speci men Type: VENOUS BLOOD SPECIMENOrdering Facility: [facility] Address: [address] [place] [address] Performed By: #### 2 4344-4 ####[facility] LABORATORYCLIA [id number] [address] [place] CO2 (BldV) [Partial pressure] 60 mm[Hg] High 42-55 [facility] Comment on above: Order Comment: Speci men Type: VENOUS BLOOD SPECIMENOrdering Facility: [facility] Address: [address] [place] [address] Performed By: #### 2 4344-4 ####[facility] LABORATORYCLIA [id number] [address] [place] CO2 adjusted to patient's actual temperature (BldV) [Partial pressure] 59 mmHg High 42-55 [facility] Comment on above: Order Comment: Speci men Type: VENOUS BLOOD SPECIMENOrdering Facility: [facility] Address: [address] [place] [address] Performed By: #### 2 4344-4 ####[facility] LABORATORYCLIA [id number] [place] [address] [place] Glucose [Mass/Vol] 129 mg/dL High 60-105 [facility] Comment on above: Order Comment: Speci men Type: VENOUS BLOOD SPECIMENOrdering Facility: [facility] Address: [address] [place] [address] Performed By: #### 2 4344-4 ####[facility] LABORATORYCLIA [id number] [place] [address] [place] HCO3 (Bld) [Moles/Vol] 33 mmol/L High 24-28 [facility] Comment on above: Order Comment: Speci men Type: VENOUS BLOOD SPECIMENOrdering Facility: [facility] Address: [address] [place] [address] Performed By: #### 2 4344-4 ####[facility] LABORATORYCLIA [id number] [address] [place] Hematocrit (Bld) [Volume fraction] 42.9 % Normal 39.0-51.0 [facility] Comment on above: Order Comment: Speci men Type: VENOUS BLOOD SPECIMENOrdering Facility: [facility] Address: [address] [place] [address] Performed By: #### 2 4344-4 ####[facility] LABORATORYCLIA [id number] [address] [place] Hemoglobin (Bld) [Mass/Vol] 14.0 g/dL Normal 13.0-17.0 [facility] Comment on above: Order Comment: Speci men Type: VENOUS BLOOD SPECIMENOrdering Facility: [facility] Address: [address] [place] [address] Performed By: #### 2 4344-4 ####[facility] LABORATORYCLIA [id number] [address] [place] Lactate [Moles/Vol] 1.1 mmol/L Normal 0.5-2.2 [facility] Comment on above: Order Comment: Speci men Type: VENOUS BLOOD SPECIMENOrdering Facility: [facility] Address: [address] [place] [address] Performed By: #### 2 4344-4 ####[facility] LABORATORYCLIA [id number] [address] [place] LITERS 6 Liters/min Normal [facility] Comment on above: Order Comment: Speci men Type: VENOUS BLOOD SPECIMENOrdering Facility: [facility] Address: [address] [place] [address] Performed By: #### 2 4344-4 ####[facility] LABORATORYCLIA [id number] [address] Methemoglobin (Bld) [Mass fraction] 0.7 % Normal 0.0-1.5 [facility] Comment on above: Order Comment: Speci men Type: VENOUS BLOOD SPECIMENOrdering Facility: [facility] Address: [address] [place] [address] Performed By: #### 2 4344-4 ####[facility] LABORATORYCLIA [id number] [address] [place] O2 THERAPY NC = Nasal Cannula Normal [facility] Comment on above: Order Comment: Speci men Type: VENOUS BLOOD SPECIMENOrdering Facility: [facility] Address: [address] [place] [address] Performed By: #### 2 4344-4 ####[facility] LABORATORYCLIA [id number] [address] [place] Oxygen (BldV) [Partial pressure] 55 mm[Hg] High 35-45 [facility] Comment on above: Order Comment: Speci men Type: VENOUS BLOOD SPECIMENOrdering Facility: [facility] Address: [address] [place] [address] Performed By: #### 2 4344-4 ####[facility] [facility] LABORATORYCLIA [id number] [address] [place] Oxygen adjusted to patient's actual temperature (BldV) [Partial pressure] 54 mmHg High 35-45 [facility] Comment on above: Order Comment: Speci men Type: VENOUS BLOOD SPECIMENOrdering Facility: [facility] Address: [address] [place] [address] Performed By: #### 2 4344-4 ####[facility] LABORATORYCLIA [id number] [address] [place] Oxygen saturation in Venous blood 85 % Normal 60-85 [facility] Comment on above: Order Comment: Speci men Type: VENOUS BLOOD SPECIMENOrdering Facility: [facility] Address: [address] [place] [address] Performed By: #### 2 4344-4 ####[facility] LABORATORYCLIA [id number] [address] [place] Oxyhemoglobin (BldV) [Mass fraction] 83 % Normal 60-85 [facility] Comment on above: Order Comment: Speci men Type: VENOUS BLOOD SPECIMENOrdering Facility: [facility] Address: [address] [place] [address] Performed By: #### 2 4344-4 ####[facility] LABORATORYCLIA [id number] [place] [address] [place] pH (BldV) 7.37 [pH] Normal 7.32-7.42 [facility] Comment on above: Order Comment: Speci men Type: VENOUS BLOOD SPECIMENOrdering Facility: [facility] Address: [address] [place] [address] Performed By: #### 2 4344-4 ####[facility] LABORATORYCLIA [id number] [address] [place] pH adjusted to patient's actual temperature (BldV) 7.37 Normal 7.32-7.42 [facility] Comment on above: Order Comment: Speci men Type: VENOUS BLOOD SPECIMENOrdering Facility: [facility] Address: [address] [place] [address] Performed By: #### 2 4344-4 ####[facility] LABORATORYCLIA [id number] [place] [address] [place] Potassium [Moles/Vol] 4.5 mmol/L Normal 3.5-5.0 [facility] Comment on above: Order Comment: Speci men Type: VENOUS BLOOD SPECIMENOrdering Facility: [facility] Address: [address] [place] [address] Performed By: #### 2 4344-4 ####[facility] LABORATORYCLIA [id number] [place] [address] [place] Sodium [Moles/Vol] 138 mmol/L Normal 136-144 [facility] Comment on above: Order Comment: Speci men Type: VENOUS BLOOD SPECIMENOrdering Facility: [facility] Address: [address] [place] [address] Performed By: #### 2 4344-4 ####[facility] LABORATORYCLIA [id number] [place] [address] [place] Base excess Calc (BldV) [Moles/Vol] 8 mmol/L High 0-2 [facility] Comment on above: Order Comment: Speci men Type: VENOUS BLOOD SPECIMENOrdering Facility: [facility] Address: [address] [place] [address] Performed By: #### 2 4344-4 ####[facility] LABORATORYCLIA [id number] [address] [place] Body temperature 98.6 [degF] Normal [facility] Comment on above: Order Comment: Speci men Type: VENOUS BLOOD SPECIMENOrdering Facility: [facility] Address: [address] [place] [address] Performed By: #### 2 4344-4 ####[facility] LABORATORYCLIA [id number] [place] [address] [place] Calcium.ionized (BldV) [Mass/Vol] 1.12 mmol/L Normal 1.08-1.30 [facility] Comment on above: Order Comment: Speci men Type: VENOUS BLOOD SPECIMENOrdering Facility: [facility] Address: [address] [place] [address] Performed By: #### 2 4344-4 ####[facility] LABORATORYCLIA [id number] [address] [facility] Calcium.ionized adjusted to pH 7.4 (BldA) [Moles/Vol] 1.10 mmol/L Normal 1.08-1.30 [facility] Comment on above: Order Comment: Speci men Type: VENOUS BLOOD SPECIMENOrdering Facility: [facility] Address: [address] [place] [address] Performed By: #### 2 4344-4 ####[facility] LABORATORYCLIA [id number] [address] [place] Carboxyhemoglobin (BldV) [Mass fraction] 1.4 % Normal 0.0-2.0 [facility] Comment on above: Order Comment: Speci men Type: VENOUS BLOOD SPECIMENOrdering Facility: [facility] Address: [address] [place] [address] Result Comment: Carb oxyhemoglobin Reference Range for Smokers: 2.0-8.0% Performed By: #### 2 4344-4 ####[facility]OSPITALCLIA [id number] [address] [place] Chloride [Moles/Vol] 104 mmol/L Normal 97-105 [facility] Comment on above: Order Comment: Speci men Type: VENOUS BLOOD SPECIMENOrdering Facility: [facility] Address: [address] [place] [address] Performed By: #### 2 4344-4 ####[facility] LABORATORYCLIA [id number] [address] [place] CO2 (BldV) [Partial pressure] 62 mm[Hg] High 42-55 [facility] Comment on above: Order Comment: Speci men Type: VENOUS BLOOD SPECIMENOrdering Facility: [facility] Address: [address] [place] [address] Performed By: #### 2 4344-4 ####[facility] LABORATORYCLIA [id number] [place] [address] [place] Glucose [Mass/Vol] 110 mg/dL High 60-105 [facility] Comment on above: Order Comment: Speci men Type: VENOUS BLOOD SPECIMENOrdering Facility: [facility] Address: [address] [place] [address] Performed By: #### 2 4344-4 ####[facility] LABORATORYCLIA [id number] [address] [place] HCO3 (Bld) [Moles/Vol] 35 mmol/L High 24-28 [facility] Comment on above: Order Comment: Speci men Type: VENOUS BLOOD SPECIMENOrdering Facility: [facility] Address: [address] [place] [address] Performed By: #### 2 4344-4 ####[facility] LABORATORYCLIA [id number] [address] [place] Hematocrit (Bld) [Volume fraction] 42.4 % Normal 39.0-51.0 [facility] Comment on above: Order Comment: Speci men Type: VENOUS BLOOD SPECIMENOrdering Facility: [facility] Address: [address] [place] [address] Performed By: #### 2 4344-4 ####[facility] LABORATORYCLIA [id number] [address] [place] Hemoglobin (Bld) [Mass/Vol] 13.8 g/dL Normal 13.0-17.0 [facility] Comment on above: Order Comment: Speci men Type: VENOUS BLOOD SPECIMENOrdering Facility: [facility] Address: [address] [place] [address] Performed By: #### 2 4344-4 ####[facility] LABORATORYCLIA [id number] [address] [place] Lactate [Moles/Vol] 1.2 mmol/L Normal 0.5-2.2 [facility] Comment on above: Order Comment: Speci men Type: VENOUS BLOOD SPECIMENOrdering Facility: [facility] Address: [address] [place] [address] Performed By: #### 2 4344-4 ####[facility] LABORATORYCLIA [id number] [place] [address] [place] Methemoglobin (Bld) [Mass fraction] 0.4 % Normal 0.0-1.5 [facility] Comment on above: Order Comment: Speci men Type: VENOUS BLOOD SPECIMENOrdering Facility: [facility] Address: [address] [place] [address] Performed By: #### 2 4344-4 ####[facility] LABORATORYCLIA [id number] [address] O2 THERAPY NC = Nasal Cannula Normal [facility] Comment on above: Order Comment: Speci men Type: VENOUS BLOOD SPECIMENOrdering Facility: [facility] Address: [address] [place] [address] Performed By: #### 2 4344-4 ####[place] [facility] LABORATORYCLIA [id number] [address] [place] Oxygen (BldV) [Partial pressure] 60 mm[Hg] High 35-45 [facility] Comment on above: Order Comment: Speci men Type: VENOUS BLOOD SPECIMENOrdering Facility: [facility] Address: [address] [place] [address] Performed By: #### 2 4344-4 ####[facility] LABORATORYCLIA [id number] [address] Oxygen saturation in Venous blood 88 % High 60-85 [facility] Comment on above: Order Comment: Speci men Type: VENOUS BLOOD SPECIMENOrdering Facility: [facility] Address: [address] [place] [address] Performed By: #### 2 4344-4 ####[facility] LABORATORYCLIA [id number] [place], [place] [address] [place] [address] [place] Oxyhemoglobin (BldV) [Mass fraction] 87 % High 60-85 [facility] Comment on above: Order Comment: Speci men Type: VENOUS BLOOD SPECIMENOrdering Facility: [facility] Address: [address] [place] [address] Performed By: #### 2 4344-4 ####[facility] [facility] LABORATORYCLIA [id number] [place] [address] pH (BldV) 7.36 [pH] Normal 7.32-7.42 [facility] Comment on above: Order Comment: Speci men Type: VENOUS BLOOD SPECIMENOrdering Facility: [facility] Address: [address] [place] [address] Performed By: #### 2 4344-4 ####[facility] LABORATORYCLIA [id number] [address] [place] Potassium [Moles/Vol] 4.1 mmol/L Normal 3.5-5.0 [facility] Comment on above: Order Comment: Speci men Type: VENOUS BLOOD SPECIMENOrdering Facility: [facility] Address: [address] [place] [address] Performed By: #### 2 4344-4 ####[facility] LABORATORYCLIA [id number] [address] [facility] Sodium [Moles/Vol] 132 mmol/L Low 136-144 [facility] Comment on above: Order Comment: Speci men Type: VENOUS BLOOD SPECIMENOrdering Facility: [facility] Address: [address] [place] [address] Performed By: #### 2 4344-4 ####[facility] LABORATORYCLIA [id number] [address] [facility] HISTORY PHYSICALon HISTORY PHYSICAL HNO ID: [id number] Author: AUGUSTO LAKE MD Service: Hospital Care [...] goal 88 to 92%. Obtain records from [place] for recent treatment of diabetic foot infection/OM. At [facility], patient was on ertapenem and vancomycin and based on the verbal report the end of treatment was 12/24/2024. Signature: [place] MD Date: 12/05/2024 Time: 4:22 PM [facility] PATIENT NAME: Mitul Oakes ADMITTED FOR: Acute [...] in 2009) -h/o DVT Patient presented to [facility] with a chief complaint of worsening [...] Take 1 tablet by mouth once daily. lyybtxshtk-cerajuav-l ormoterol (BREZTRI) 160-9-4.8 mcg/actuation HFA aerosol inhaler Inhale 2 Puffs as instructed two times (more content not included)... Normal [facility] THERAPY NTon 12-05-2024 THERAPY NT HNO ID: [id number] Author: SAVANAH GAR, PT Service: Physical Therapy Author Type: Physical Therapist Type: Therapy (PT/OT/Speech/Resp) Filed: 12/05/2024 12:37 Note Text: Physical Therapy Evaluation Summary SERVICE DATE: 12/05/2024 SERVICE TIME: 1125 to 1140 ROOM: [id number] PT 6 Clicks Score: 12 DISCHARGE RECOMMENDATIONS [...] Weakness (generalized) TREATMENT INTERVENTIONS Evaluation $ Evaluation-Moderate (74678) Billed Units: 1 unit Skilled Treatment Time [...] Strength Limitation Comments Strength Limitation Comments: R BKA, LLE grossly 4-/5 GOALS Able to Perform [...] Balance Training, Functional Mobility Training SIGNATURE: Savanah Gar, PT PATIENT NAME: Mitul Oakes DATE: December 05, 2024 TIME: 12:36 PM Normal [facility] XR CHEST 1V FRONTALon 2024 [...] on CT not well visualized on x-ray. Career Development Coordinator: PSCB Transcribe Date/Time: Dec 05 2024 4:23A Dictated by : ALICJA TORRES MD This examination was interpreted and the report reviewed and electronically signed by: ALICJA TORRES MD on Dec 05 2024 4:24AM EST [id number] Normal [facility] ALLIED HEALTHon 12-04-2024 ALLIED HEALTH HNO ID: [id number] Author: GLORIA GAR RN Service: Infection Prevention Author Type: Registered Nurse Type: Allied Health Filed: 12/04/2024 14:16 Note Text: ISOLATION NOTE Admission Date: 12/03/2024 Type of Isolation Recommended: Contact Precautions ([place] Isolation Sign) Indication: Parainfluenza Date Isolation Initiated: [...] TIME: 2:12 PM PAGER/CONTACT #: Infection Prevention, [id number] Infection Prevention after hours/weekend pager: [phone] [facility] HNO ID: [id number] Author: TERRELL JANSEN RT(R) Service: Radiology Author Type: Technologist Type: [facility] Filed: 12/04/2024 11:00 Note Text: Radiology [...] PATIENT PRESENTS WITH AN IMPLANTABLE OR ATTACHED ETHYLBENZENE CRACKING SUPERVISOR: No ALLERGIES: Reviewed and unchanged CONTRAST ALLERGY: [...] December 04, 2024 TIME: 10:59 AM Normal [facility] Basic metabolic 2000 panelon 12-04-2024 Anion gap [Moles/Vol] 10 mmol/L Normal 8-15 [facility] Comment on above: Order Comment: Speci men Type: BLOOD SPECIMENOrdering Facility: [facility] Address: [address] [place] [address] Performed By: #### 2 4321-2, 2776-06, ####[facility] LABORATORYCLIA [id number] [place] [address] [place] Calcium [Mass/Vol] 8.7 mg/dL Normal 8.5-10.2 [facility] Comment on above: Order Comment: Speci men Type: BLOOD SPECIMENOrdering Facility: [facility] Address: [address] [place] [address] Performed By: #### 2 4321-2, 27712-16, ####[facility] LABORATORYCLIA [id number] [place] [address] [place] Chloride [Moles/Vol] 100 mmol/L Normal 98-107 [facility] Comment on above: Order Comment: Speci men Type: BLOOD SPECIMENOrdering Facility: [facility] Address: [address] [place], [place] [address] Performed By: #### 2 4321-2, 2777, ####[facility] HOSPITALCLIA [id number] [place] [address] [place] OF [facility] CO2 [Moles/Vol] 27 mmol/L Normal 22-30 [facility] Comment on above: Order Comment: Speci men Type: BLOOD SPECIMENOrdering Facility: [facility] Address: [address] [place] [address] Performed By: #### 2 4321-2, 27712-16, ####[facility] HOSPITALCLIA [id number] [place] [id number] [facility] Creatinine [Mass/Vol] 0.86 mg/dL Normal 0.73-1.22 [facility] Comment on above: Order Comment: Speci men Type: BLOOD SPECIMENOrdering Facility: [facility] Address: [address] [place] [address] Performed By: #### 2 4321-2, 27712-16, ####[facility] [id number] [address] Creatinine and Glomerular filtration rate.predicted panel (S/P/Bld) 94 mL/min/1.73m??? Normal >=60 [facility] Comment on above: Order Comment: Speci men Type: BLOOD SPECIMENOrdering Facility: [facility] Address: [address] [place], [place] [address] Result Comment: Sachi mated Glomerular Filtration Rate [...] actual GFR. Performed By: #### 2 4321-2, 2777-1, ####[facility] LABORATORYCLIA [id number] [place] [address] [place] Glucose [Mass/Vol] 195 mg/dL High 74-99 [facility] Comment on above: Order Comment: Raudel carrillo Type: BLOOD SPECIMENOrdering Facility: [facility] Address: [address] [place] [address] Result Comment: The [place] [employer] (ADA) provides guidance for cutoff [...] Standards of Medical Care in Diabetes 2016, [place] [employer]. Diabetes Care. 2016.39(Suppl 1). Performed By: #### 2 4321-2, 2776-06, ####[facility] LABORATORYCLIA [id number] [place] [address] [place] Potassium [Moles/Vol] 3.6 mmol/L Low 3.7-5.1 [facility] Comment on above: Order Comment: Raudel carrillo Type: BLOOD SPECIMENOrdering Facility: [facility] Address: [address] [place], [place] [address] Performed By: #### 2 4321-2, 2776-06, ####[facility] LABORATORYCLIA [id number] [place] [address] [place] Sodium [Moles/Vol] 137 mmol/L Normal 136-144 [facility] Comment on above: Order Comment: Raudel carrillo Type: BLOOD SPECIMENOrdering Facility: [facility] Address: [address] [place] [address] Performed By: #### 2 4321-2, 2776-06, ####[facility] LABORATORYCLIA [id number] [place] [address] [place] Urea nitrogen [Mass/Vol] 10 mg/dL Normal 9-24 [facility] Comment on above: Order Comment: Speci men Type: BLOOD SPECIMENOrdering Facility: [facility] Address: [address] [place] [address] Performed By: #### 2 4321-2, 2777-1, 56284-1 ####[facility] LABORATORYCLIA [id number] [address] [facility] CBC panel Auto (Bld)on 12-04 Erythrocyte distribution width (RBC) [Ratio] 17.2 % High 11.5-15.0 [facility] Comment on above: Order Comment: Speci men Type: BLOOD SPECIMENOrdering Facility: [facility] Address: [address] [place] [address] Performed By: #### 5 8410-2 ####[facility] LABORATORYCLIA [id number] [address] [place] Hematocrit (Bld) [Volume fraction] 43.9 % Normal 39.0-51.0 [facility] Comment on above: Order Comment: Speci men Type: BLOOD SPECIMENOrdering Facility: [facility] Address: [address] [place] [address] Performed By: #### 5 8410-2 ####[facility] LABORATORYCLIA [id number] [address] [place] Hemoglobin (Bld) [Mass/Vol] 14.0 g/dL Normal 13.0-17.0 [facility] Comment on above: Order Comment: Speci men Type: BLOOD SPECIMENOrdering Facility: [facility] Address: [address] [place] [address] Performed By: #### 5 8410-2 ####[facility] LABORATORYCLIA [id number] [address] [place] MCH (RBC) [Entitic mass] 25.8 pg Low 26.0-34.0 [facility] Comment on above: Order Comment: Speci men Type: BLOOD SPECIMENOrdering Facility: [facility] Address: [address] [place] [address] Performed By: #### 5 8410-2 ####[facility] LABORATORYCLIA [id number] [address] MCHC (RBC) [Mass/Vol] 31.9 g/dL Normal 30.5-36.0 [facility] Comment on above: Order Comment: Speci men Type: BLOOD SPECIMENOrdering Facility: [facility] Address: [address] [place] [address] Performed By: #### 5 8410-2 ####[facility] LABORATORYCLIA [id number] [address] [place] MCV (RBC) [Entitic vol] 80.8 fL Normal 80.0-100.0 [facility] Comment on above: Order Comment: Speci men Type: BLOOD SPECIMENOrdering Facility: [facility] Address: [address] [place] [address] Performed By: #### 5 8410-2 ####[facility] LABORATORYCLIA [id number] [address] [facility] Nucleated RBC (Bld) [#/Vol] 10*3/uL Normal <0.01 [facility] Comment on above: Order Comment: Speci men Type: BLOOD SPECIMENOrdering Facility: [facility] Address: [address] [place] [address] Performed By: #### 5 8410-2 ####[facility] LABORATORYCLIA [id number] [address] [facility] Platelet mean volume (Bld) [Entitic vol] 9.8 fL Normal 9.0-12.7 [facility] Comment on above: Order Comment: Speci men Type: BLOOD SPECIMENOrdering Facility: [facility] Address: [address] [place] [address] Performed By: #### 5 8410-2 ####[facility] LABORATORYCLIA [id number] [address] [place] Platelets (Bld) [#/Vol] 239 10*3/uL Normal 150-400 [facility] Comment on above: Order Comment: Speci men Type: BLOOD SPECIMENOrdering Facility: [facility] Address: [address] [place] [address] Performed By: #### 5 8410-2 ####[facility] LABORATORYCLIA [id number] [address] [place] [facility] RBC (Bld) [#/Vol] 5.43 10*6/uL Normal 4.20-6.00 [facility] Comment on above: Order Comment: Speci men Type: BLOOD SPECIMENOrdering Facility: [facility] Address: [address] [place] [address] Performed By: #### 5 8410-2 ####[facility] LABORATORYCLIA [id number] [address] WBC (Bld) [#/Vol] 9.75 10*3/uL Normal 3.70-11.00 [facility] Comment on above: Order Comment: Speci men Type: BLOOD SPECIMENOrdering Facility: [facility] Address: [address] [place] [address] Performed By: #### 5 8410-2 ####[facility] LABORATORYCLIA [id number] [address] CONSULTon 12-04-2024 CONSULT HNO ID: [id number] Author: ANY GRANT DO Service: Infectious Disease [...] of L foot to bone wound vac 12-9-2024 culture culture S haemolyticus, S epidermidis, Enterobacter, C parapsilosis s/p vancomycin, ceftriaxone and fluconazole -S/P angiogram 06-02-2024 ballon angioplasty of distal L superficial femoral artery with 5 x 60 mm [place] ballon and 6 x 80 mm DCB -S/P L hallux amputation bone biopsy 1st [facility] IANDD deep L dorsal foot 06-05-2024 Recently seen by MARC Lerner ID for L 2nd toe started on empiric [...] undergoing L [facility] [place]. Current other medications reviewed. Current Facility-Administered Medications [...] Other: See Comments HIIT New pt to [facility] on 05/23/24. Pt states allergy to [...] normal. Cardiovascular: (more content not included)... Normal [facility] CONSULT PROGon 12-04-2024 CONSULT PROG HNO ID: [id number] Author: NHUNG MELENDEZ RPh Service: Pharmacy Author [...] pharmacy if there are questions. Nhung Melendez RPh Normal [facility] CONSULT PROG HNO ID: [id number] Author: HOWARD DUBOIS RPh Service: Pharmacy Author [...] and vancom[facility] at [facility] facility by the [facility]. The ertapenem is listed to end on 12/24/24. I called and spoke with pharmacist at [facility] who read ID notes and looks like vanco may end on 12/24/24 also. Per [facility] pharmacist, patient was on vanco 1,5g q12h [...] any questions, please contact Kelley AngelD [place] [phone]. Age: [age] year old Allergies: ALLERGIES Allergen Reactions Heparin Other: See Comments HIIT New pt to [facility] on 05/23/24. Pt states allergy to [...] 1355 14.8 06/02/2024 1008 16.9 Howard Dubois [facility] CONSULT PROG HNO ID: [id number] Author: PRINCESS HENDRICKS, ALEXANDRE Service: Wound/Ostomy Author Type: Registered Nurse Type: [...] Authorizing Provider 12/04/24 1403 DRESSING CARE (SPECIFY) ([place]), Diabetic Ulcer Left Toe D2, second Routine Active Blasiole, Kirsten Ag, CONTROL TECHNICIAN.COMMERCIAL ROOFER - Reason:: apply Mesalt dressing to the [...] Orders Placed This Encounter DRESSING CARE (SPECIFY) ([place]), Diabetic Ulcer Left Toe D2, second Order Comments: Wash wound with soap and water or wound cleanser with every dressing change. Freq: Daily Reason:: apply Mesalt dressing to the left second toe, cover with gauze and seucre with paper tape DRESSING CARE (SPECIFY) ([place], [place]), Order Comments: Peel back to assess skin every shift. Change every 3 days or when soiled. Freq: Every 3 Days Reason:: apply Allevyn foam dressing to the coccyx area for pressure injury prevention Counseling Provided: Prevention Dressing/ointments Observations Follow Up: Information provided to Patient PHOTOGRAPHY: A photo was taken of the patient's wound(s). Photos can be found under the Scanned Documents tab on [facility]. The purpose of the photo(s) is to [...] December 04, 2024 TIME: 2:06 PM Normal [facility] CTA CHEST (NON GATED) W IVCO N PEon 12-04-2024 CTA CHEST (NON GATED) W IVCON PE * * *Final Report* * * DATE OF EXAM: Dec 04 2024 11:01AM [facility] 0564 - CTA CHEST (NON GATED) W [...] Mediastinal and bilateral hilar adenopathy, likely reactive Career Development Coordinator: DRAKE Transcribe Date/Time: Dec 04 2024 11:04A Dictated by : SOL KRAFT MD This examination was interpreted and the report reviewed and electronically signed by: SOL KRAFT MD on Dec 04 2024 11:24AM EST [id number] Normal [facility] ED NOTEon 12-04-2024 ED NOTE HNO ID: [id number] Author: DION PÉREZ, RN Service: Emergency Medicine Author Type: Registered Nurse Type: ED Notes Filed: 12/04/2024 08:00 Note Text: Spoke with Electronics Assembler Edilma, room is clean and asked her to let Nurse know of patient Normal [facility] ED NOTE HNO ID: [id number] Author: BETZY LÓPEZ, ALEXANDRE Service: Emergency Medicine Author Type: Registered Nurse Type: ED Notes Filed: 12/04/2024 02:33 Note Text: Pt found with his cannula off his face, SPO2 83%. O2 placed back on his face and richard to 96%. Pt reminded to keep his cannula in his nose. Normal [facility] HISTORY PHYSICALon HISTORY PHYSICAL HNO ID: [id number] Author: AUG[place]O LAKE MD Service: Hospital Care [...] [place] MD Date: 12/04/2024 Time: 8:41 PM [facility] PATIENT NAME: Mitul Oakes ADMITTED FOR: COPD [...] in 2009) -h/o DVT Patient presented to [facility] with a chief complaint of worsening [...] Take 1 tablet by mouth once daily. taazszvyle-sgqtegrz-y ormoterol (BREZTRI) 160-9-4.8 mcg/actuation HFA aerosol inhaler [...] torsemide (DEMAD (more content not included)... Normal [facility] Magnesium SerPl-mCncon 12-04 Magnesium [Mass/Vol] 2.3 mg/dL Normal 1.7-2.3 [facility] Comment on above: Order Comment: Speci men Type: BLOOD SPECIMENOrdering Facility: [facility] Address: [address] [place] [address] Performed By: #### 2 4321-2, 2776-06, ####[facility] LABORATORYCLIA [id number] [place] [address] [place] Phosphate SerPl-mCncon 12-04 Phosphate [Mass/Vol] 3.5 mg/dL Normal 2.7-4.8 [facility] Comment on above: Order Comment: Speci men Type: BLOOD SPECIMENOrdering Facility: [facility] Address: [address] [place] [address] Performed By: #### 2 4321-2, 27712-16, ####[facility] LABORATORYCLIA [id number] [place] [address] [place] Bacteria Bld Culton 12-04-19 25 Bacteria identified Cx Nom (Bld) CULTURE, BLOOD: No growth 5 days Normal [facility] Comment on above: Performed By: #### 6 00-7 #### [facility] CLIA [id number] [address] Performed By: #### 6 00-7 ####[facility] LABORATORYCLIA [id number] [address] [place] CBC W Auto Differential pane l (Bld)on 12-03-2024 Basophils (Bld) [#/Vol] 0.14 10*3/uL High <0.11 [facility] Comment on above: Order Comment: Speci men Type: BLOOD SPECIMENOrdering Facility: [facility] Address: [address] [place] [address] Performed By: #### 5 7021-8 ####[facility] LABORATORYCLIA [id number] [address] Basophils/100 WBC (Bld) 0.7 % Normal A [facility] Comment on above: Order Comment: Speci men Type: BLOOD SPECIMENOrdering Facility: [facility] Address: [address] [place] [address] Performed By: #### 5 7021-8 ####[facility] LABORATORYCLIA [id number] [address] Differential cell count method Nom (Bld) Auto Normal [facility] Comment on above: Order Comment: Speci men Type: BLOOD SPECIMENOrdering Facility: [facility] Address: [address] [place] [address] Performed By: #### 5 7021-8 ####[facility] LABORATORYCLIA [id number] [address] Eosinophils (Bld) [#/Vol] 0.15 10*3/uL Normal <0.46 [facility] Comment on above: Order Comment: Speci men Type: BLOOD SPECIMENOrdering Facility: [facility] Address: [address] [place] [address] Performed By: #### 5 7021-8 ####[facility] LABORATORYCLIA [id number] [address] Eosinophils/100 WBC (Bld) 0.8 % Normal [facility] Comment on above: Order Comment: Speci men Type: BLOOD SPECIMENOrdering Facility: [facility] Address: [address] [place] [address] Performed By: #### 5 7021-8 ####[facility] LABORATORYCLIA [id number] [address] [place] Erythrocyte distribution width (RBC) [Ratio] 18.4 % High 11.5-15.0 [facility] Comment on above: Order Comment: Speci men Type: BLOOD SPECIMENOrdering Facility: [facility] Address: [address] [place] [address] Performed By: #### 5 7021-8 ####[facility] LABORATORYCLIA [id number] [address] [place] Hematocrit (Bld) [Volume fraction] 46.6 % Normal 39.0-51.0 [facility] Comment on above: Order Comment: Speci men Type: BLOOD SPECIMENOrdering Facility: [facility] Address: [address] [place] [address] Performed By: #### 5 7021-8 ####[facility] LABORATORYCLIA [id number] [address] [place] Hemoglobin (Bld) [Mass/Vol] 15.0 g/dL Normal 13.0-17.0 [facility] Comment on above: Order Comment: Speci men Type: BLOOD SPECIMENOrdering Facility: [facility] Address: [address] [place] [address] Performed By: #### 5 7021-8 ####[facility] LABORATORYCLIA [id number] [address] [place] Immature granulocytes (Bld) [#/Vol] 0.12 10*3/uL High <0.10 [facility] Comment on above: Order Comment: Speci men Type: BLOOD SPECIMENOrdering Facility: [facility] Address: [address] [place] [address] Performed By: #### 5 7021-8 ####[facility] LABORATORYCLIA [id number] [address] Immature granulocytes/100 WBC (Bld) 0.6 % Normal [facility] Comment on above: Order Comment: Speci men Type: BLOOD SPECIMENOrdering Facility: [facility] Address: [address] [place] [address] Performed By: #### 5 7021-8 ####[facility] LABORATORYCLIA [id number] [place] [address] [place] Lymphocytes (Bld) [#/Vol] 1.08 10*3/uL Normal 1.00-4.00 [facility] Comment on above: Order Comment: Speci men Type: BLOOD SPECIMENOrdering Facility: [facility] Address: [address] [place] [address] Performed By: #### 5 7021-8 ####[facility] LABORATORYCLIA [id number] [address] Lymphocytes/100 WBC (Bld) 5.8 % Normal [facility] Comment on above: Order Comment: Speci men Type: BLOOD SPECIMENOrdering Facility: [facility] Address: [address] [place] [address] Performed By: #### 5 7021-8 ####[facility] LABORATORYCLIA [id number] [address] [place] MCH (RBC) [Entitic mass] 26.2 pg Normal 26.0-34.0 [facility] Comment on above: Order Comment: Speci men Type: BLOOD SPECIMENOrdering Facility: [facility] Address: [address] [place] [address] Performed By: #### 5 7021-8 ####[facility] LABORATORYCLIA [id number] [address] [place] MCHC (RBC) [Mass/Vol] 32.2 g/dL Normal 30.5-36.0 [facility] Comment on above: Order Comment: Speci men Type: BLOOD SPECIMENOrdering Facility: [facility] Address: [address] [place] [address] Performed By: #### 5 7021-8 ####[facility]ORATORYCLIA [id number] [place] [address] [place] MCV (RBC) [Entitic vol] 81.5 fL Normal 80.0-100.0 [facility] Comment on above: Order Comment: Speci men Type: BLOOD SPECIMENOrdering Facility: [facility] Address: [address] [place] [address] Performed By: #### 5 7021-8 ####[facility] LABORATORYCLIA [id number] [place] [address] [place] Monocytes (Bld) [#/Vol] 1.20 10*3/uL High <0.87 [facility] Comment on above: Order Comment: Speci men Type: BLOOD SPECIMENOrdering Facility: [facility] Address: [address] [place] [address] Performed By: #### 5 7021-8 ####[facility] LABORATORYCLIA [id number] [address] [place] Monocytes/100 WBC (Bld) 6.4 % Normal [facility] Comment on above: Order Comment: Speci men Type: BLOOD SPECIMENOrdering Facility: [facility] Address: [address] [place] [address] Performed By: #### 5 7021-8 ####[facility] LABORATORYCLIA [id number] [address] [place] Neutrophils (Bld) [#/Vol] 16.04 10*3/uL High 1.45-7.50 [facility] Comment on above: Order Comment: Speci men Type: BLOOD SPECIMENOrdering Facility: [facility] Address: [address] [place] [address] Performed By: #### 5 7021-8 ####[facility] LABORATORYCLIA [id number] [address] [place] Neutrophils/100 WBC (Bld) 85.7 % Normal [facility] Comment on above: Order Comment: Speci men Type: BLOOD SPECIMENOrdering Facility: [facility] Address: [address] [place] [address] Performed By: #### 5 7021-8 ####[facility] LABORATORYCLIA [id number] [address] [place] Nucleated RBC (Bld) [#/Vol] 10*3/uL Normal <0.01 [facility] Comment on above: Order Comment: Speci men Type: BLOOD SPECIMENOrdering Facility: [facility] Address: [address] [place] [address] Performed By: #### 5 7021-8 ####[facility] LABORATORYCLIA [id number] [address] [place] Nucleated RBC/100 WBC (Bld) [Ratio] 0.0 /100 WBC Normal [facility] Comment on above: Order Comment: Speci men Type: BLOOD SPECIMENOrdering Facility: [facility] Address: [address] [place] [address] Performed By: #### 5 7021-8 ####[facility] LABORATORYCLIA [id number] [address] [place] Platelet mean volume (Bld) [Entitic vol] 10.0 fL Normal 9.0-12.7 [facility] Comment on above: Order Comment: Speci men Type: BLOOD SPECIMENOrdering Facility: [facility] Address: [address] [place] [address] Performed By: #### 5 7021-8 ####[facility] LABORATORYCLIA [id number] [address] [place] Platelets (Bld) [#/Vol] 289 10*3/uL Normal 150-400 [facility] Comment on above: Order Comment: Speci men Type: BLOOD SPECIMENOrdering Facility: [facility] Address: [address] [place] [address] Performed By: #### 5 7021-8 ####[facility] LABORATORYCLIA [id number] [place] [address] [place] RBC (Bld) [#/Vol] 5.72 10*6/uL Normal 4.20-6.00 [facility] Comment on above: Order Comment: Speci men Type: BLOOD SPECIMENOrdering Facility: [facility] Address: [facility] [place] [address] Performed By: #### 5 7021-8 ####[facility] LABORATORYCLIA [id number] [place] [id number] [place] WBC (Bld) [#/Vol] 18.73 10*3/uL High 3.70-11.00 [facility] Comment on above: Order Comment: Speci men Type: BLOOD SPECIMENOrdering Facility: [facility] Address: [address] [place] [address] Performed By: #### 5 7021-8 ####[facility] LABORATORYCLIA [id number] [place] [id number] [facility] CONSULT PROGon 12-03-2024 CONSULT PROG HNO ID: [id number] Author: NHUNG MELENDEZ RPh Service: Pharmacy Author [...] have any questions[place] [phone]. Age: [age] year old Allergies: ALLERGIES Allergen Reactions Heparin Other: See Comments HIIT New pt to [facility] ED on 05/23/24. Pt states allergy to [...] 06/06/2024 1355 14.8 06/02/2024 1008 16.9 Nhung Melendez [facility] Normal [facility] Comprehensive metabolic 2000 panelon 12-03-2024 Albumin [Mass/Vol] 3.5 g/dL Low 3.9-4.9 [facility] Comment on above: Order Comment: Speci men Type: BLOOD SPECIMENOrdering Facility: [facility] Address: [address] [place] [address] Performed By: #### 2 4323-8, 12328-5, 98876-0 ####[facility] LABORATORYCLIA [id number] [place] [address] [place] ALP [Catalytic activity/Vol] 167 U/L High 38-113 [facility] Comment on above: Order Comment: Speci men Type: BLOOD SPECIMENOrdering Facility: [facility] Address: [address] [place] [address] Performed By: #### 2 4323-8, 83570-5, 61876-6 ####[facility] LABORATORYCLIA [id number] [place] [address] [place] ALT With P-5'-P [Catalytic activity/Vol] 18 U/L Normal 10-54 [facility] Comment on above: Order Comment: Speci men Type: BLOOD SPECIMENOrdering Facility: [facility] Address: [address] [place] [address] Performed By: #### 2 4323-8, , 55447-6 ####[facility] LABORATORYCLIA [id number] [address] [place] [facility] Anion gap [Moles/Vol] 13 mmol/L Normal 8-15 [facility] Comment on above: Order Comment: Speci men Type: BLOOD SPECIMENOrdering Facility: [facility] Address: [address] [place] [address] Performed By: #### 2 4323-8, , 06013-9 ####[facility] LABORATORYCLIA [id number] [address] [place] AST With P-5'-P [Catalytic activity/Vol] 19 U/L Normal 14-40 [facility] Comment on above: Order Comment: Speci men Type: BLOOD SPECIMENOrdering Facility: [facility] Address: [address] [place] [address] Performed By: #### 2 4323-8, 29810-2, 47846-7 ####[facility] LABORATORYCLIA [id number] [place] [address] [place] Bilirubin [Mass/Vol] 0.6 mg/dL Normal 0.2-1.3 [facility] Comment on above: Order Comment: Speci men Type: BLOOD SPECIMENOrdering Facility: [facility] Address: [address] [place] [address] Performed By: #### 2 4323-8, 19501-1, 52464-2 ####[facility] LABORATORYCLIA [id number] [place] [address] [place] Calcium [Mass/Vol] 8.7 mg/dL Normal 8.5-10.2 [facility] Comment on above: Order Comment: Speci men Type: BLOOD SPECIMENOrdering Facility: [facility] Address: [address] [place] [address] Performed By: #### 2 4323-8, 37872-3, 45565-8 ####[facility] LABORATORYCLIA [id number] [place] [address] [place] Chloride [Moles/Vol] 98 mmol/L Normal 98-107 [facility] Comment on above: Order Comment: Speci men Type: BLOOD SPECIMENOrdering Facility: [facility] Address: [address] [place] [address] Performed By: #### 2 4323-8, 46218-7, 76108-3 ####[facility] LABORATORYCLIA [id number] [place] [address] [place] CO2 [Moles/Vol] 26 mmol/L Normal 22-30 [facility] Comment on above: Order Comment: Speci men Type: BLOOD SPECIMENOrdering Facility: [facility] Address: [address] [place] [address] Performed By: #### 2 4323-8, 74998-6, 86799-6 ####[facility] LABORATORYCLIA [id number] [place] [id number] [place] Creatinine [Mass/Vol] 1.01 mg/dL Normal 0.73-1.22 [facility] Comment on above: Order Comment: Speci men Type: BLOOD SPECIMENOrdering Facility: [facility] Address: [address] [place] [address] Performed By: #### 2 4323-8, 36371-0, 46208-8 ####[facility] LABORATORYCLIA [id number] [place] [address] [place] Creatinine and Glomerular filtration rate.predicted panel (S/P/Bld) 81 mL/min/1.73m??? Normal >=60 [facility] Comment on above: Order Comment: Raudel carrillo Type: BLOOD SPECIMENOrdering Facility: [facility] Address: [address] [place] [address] Result Comment: Sachi mated Glomerular Filtration Rate [...] actual GFR. Performed By: #### 2 4323-8, 41102-0, 87301-9 ####[facility] LABORATORYCLIA [id number] [place] [id number] [place] Glucose [Mass/Vol] 135 mg/dL High 74-99 [facility] Comment on above: Order Comment: Raudel carrillo Type: BLOOD SPECIMENOrdering Facility: [facility] Address: [address] [place] [address] Result Comment: The [place] [employer] (ADA) provides guidance for cutoff [...] Standards of Medical Care in Diabetes 2016, [place] [employer]. Diabetes Care. 2016.39(Suppl 1). Performed By: #### 2 4323-8, 08886-9, 65147-9 ####[facility] LABORATORYCLIA [id number] [place] [id number] [place] Potassium [Moles/Vol] 3.8 mmol/L Normal 3.7-5.1 [facility] Comment on above: Order Comment: Speci men Type: BLOOD SPECIMENOrdering Facility: [facility] Address: [address] [place] [address] Performed By: #### 2 4323-8, 84882-8, 61938-2 ####[facility] LABORATORYCLIA [id number] [address] [place] [facility] Protein [Mass/Vol] 7.9 g/dL Normal 6.3-8.0 [facility] Comment on above: Order Comment: Speci men Type: BLOOD SPECIMENOrdering Facility: [facility] Address: [address] [place] [address] Performed By: #### 2 4323-8, , 33860-9 ####[facility] LABORATORYCLIA [id number] [address] STATES [facility] Sodium [Moles/Vol] 137 mmol/L Normal 136-144 [facility] Comment on above: Order Comment: Speci men Type: BLOOD SPECIMENOrdering Facility: [facility] Address: [address] [place] [address] Performed By: #### 2 4323-8, , 22030-1 ####[facility] LABORATORYCLIA [id number] [address] STATES [facility] Urea nitrogen [Mass/Vol] 7 mg/dL Low 9-24 [facility] Comment on above: Order Comment: Speci men Type: BLOOD SPECIMENOrdering Facility: [facility] Address: [address] [place] [address] Performed By: #### 2 4323-8, 82317-9, 21590-5 ####[facility] LABORATORYCLIA [id number] [address] [place] [facility] ECG COMPLETEon 12-03-2024 ECG COMPLETE Ventricular Rate : 116 BPM Atrial Rate : 116 BPM P-R Interval : 178 ms QRS Duration : 96 ms Q-T Interval : 326 ms QTC Calculation(Bazett) : 453 ms Calculated P [place] : 14 degrees Calculated R [place] : 18 degrees Calculated T [place] : 63 degrees SINUS TACHYCARDIA POSSIBLE LEFT ATRIAL ENLARGEMENT BORDERLINE ECG NO PREVIOUS ECGS AVAILABLE Confirmed by DEVANTE ALEXANDER MD ([id number]) on 12/04/2024 12:33:34 PM NAME : MITUL OAKES PID : [id number] : 1955 Gender : Male Race : Unknown ORD : [id number] Procedure Date : Dec 03 2024 17:07:01 Edit Date : Dec 04 2024 12:33:37 Diagnosis: SINUS TACHYCARDIA POSSIBLE LEFT ATRIAL ENLARGEMENT BORDERLINE ECG NO PREVIOUS ECGS AVAILABLE Confirmed by DEVANTE ALEXANDER MD ([id number]) on 12/04/2024 12:33:34 PM Test Reason : Chest Pain Location : 4 : [facility] EM Overread By : DEVANTE ALEXANDER MD Edited By : DEVANTE ALEXANDER MD Referred By : , Acquired by : SUKHWINDER NUNEZ [facility] ED NOTEon 12-03-2024 ED NOTE HNO ID: [id number] Author: FREDI MINAYA RN Service: Nursing Author Type: Registered Nurse Type: ED Notes Filed: 12/03/2024 22:50 Note Text: Patient taken off of Bipap at this time per RT [facility] ED NOTE HNO ID: [id number] Author: HELENE DAMON RN Service: Emergency Medicine Author Type: Registered Nurse Type: ED Notes Filed: 12/03/2024 17:48 Note Text: Pt has requested water multiple times. Pt has been informed due to his respiratory status and vomiting on arrival, he can not have anything at this time. Will re-evaluate at a later time. [facility] ED NOTE HNO ID: [id number] Author: BOLIVAR CHACON, Allison Service: ? 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 Pt states allergy to [...] breath soun (more content not included)... Normal [facility] HIGH SENSITIVITY TROPONIN T (INITIAL)on 12-03-2024 Troponin T.cardiac High sensitivity method [Mass/Vol] 23 ng/L High <12 [facility] Comment on above: Order Comment: Raudel carrillo Type: BLOOD SPECIMENOrdering Facility: [facility] Address: [address] [place] [address] Performed By: #### L [id number] ####[facility]ORATORYCLIA [id number] [address] [facility] HIGH SENSITIVITY TROPONIN T (SECOND)on 12-03-2024 Troponin T.cardiac High sensitivity method [Mass/Vol] 25 ng/L High <12 [facility] Comment on above: Order Comment: Raudel carrillo Type: BLOOD SPECIMENOrdering Facility: [facility] Address: [address] [place] [address] Performed By: #### L [id number] ####[facility]ORATORYCLIA [id number] [address] [place] HIGH SENSITIVITY TROPONIN T (THIRD) 3 HRS AFTER INITIALon 12-03-2024 Troponin T.cardiac High sensitivity method [Mass/Vol] 23 ng/L High <12 [facility] Comment on above: Order Comment: Raudel carrillo Type: BLOOD SPECIMENOrdering Facility: [facility] Address: [address], [place] [address] Performed By: #### L [id number] ####[facility] [id number] [place] [address] [place] HISTORY PHYSICALon HISTORY PHYSICAL HNO ID: [id number] Author: SARAH VEGA MD Service: Hospital Medicine [...] Vega MD Date: 12/04/2024. Time: 6:01 PM [facility] PATIENT NAME: Mitul Oakes ADMITTED FOR: COPD [...] in 2009) -h/o DVT Patient presented to [facility] with a chief complaint of worsening [...] Take 1 tablet by mouth once daily. wfhmzmakbp-sstwojer-t ormoterol (BREZTRI) 160-9-4.8 mcg/actuation HFA aerosol inhaler [...] Take 1 tablet by mouth every morning. [place]-3 Fatty Acids-Vitamin E (FISH OIL) 1,000 mg cap Take 1 capsule by mouth. (Patient not taking: Reported on 07/25/2024) carvedilol (COREG) 25 mg tablet Take 25 mg by mouth twice daily with meals. vitamin D3-vitamin K2, MK4, 1,000-100 unit-mcg tab (more content not included)... Normal [facility] Legionella Ag Ur Qlon 2024 Legionella sp Ag Ql (U) Negative Normal Negative A [facility] Comment on above: Order Comment: Speci men Type: URINE SPECIMENOrdering Facility: [facility] Address: [address] [place] [address] Result Comment: Pres umptive negative for L. [...] the test. Performed By: #### 3 2781-7 ####[facility]ITALCLIA [id number] [place] [address] [place] Magnesium SerPl-ncon 12-03 Magnesium [Mass/Vol] 1.7 mg/dL Normal 1.7-2.3 [facility] Comment on above: Order Comment: Speci men Type: BLOOD SPECIMENOrdering Facility: [facility] Address: [address] [place] [address] Performed By: #### 2 4323-8, 40786-7, 71357-9 ####[facility]ITALCLIA [id number] [place] [address] [place] NT-proBNP SerPl-ncon 12-03 Natriuretic peptide.B prohormone N-Terminal [Mass/Vol] 531 pg/mL High <125 [facility] Comment on above: Order Comment: Speci men Type: BLOOD SPECIMENOrdering Facility: [facility] Address: [address] [place] [address] Performed By: #### 2 4323-8, 27117-5, 27656-8 ####[facility]ITALCLIA [id number] [address] [place] Procalcitonin SerPl-ncon 0 12-03-2024 Procalcitonin [Mass/Vol] 0.09 ng/mL High <0.09 [facility] Comment on above: Order Comment: Speci men Type: BLOOD SPECIMENOrdering Facility: [facility] Address: [address] [place] [address] Result Comment: For a guided interpretation of test results, please visit the Change in Procalcitonin Calculator, [email or web address]. Performed By: #### 3 3959-8 ####[facility]ORATORYCLIA [id number] [address] [place] STAPHYLOCOCCUS AUREUS AND MR SA SCREEN, PCR, NASALon 12-03-2024 S. aureus and MRSA panel OSCAR+probe (Nose) Not detected Normal Not Detected [facility] Comment on above: Order Comment: Speci men Type: SWABOrdering Facility: [facility] Address: [address] [place] [address] Performed By: #### S APCR ####[facility] LABORATORYCLIA [id number] [address] [place] STREPTOCOCCUS PNEUMONIAE ANT IGEN URINEon 12-03-2024 STREPTOCOCCUS PNEUMONIAE ANTIGEN URINE STREP PNEUMO AG RESULT: Negative for Streptococcus pneumoniae antigen. Presumptive negative for pneumococcal pneumonia, suggesting no current or recent pneumococcal infection. Infection due to S.pneumoniae cannot be ruled out since the antigen present in the sample may be below the detection limit of the test. Normal [facility] Comment on above: Performed By: #### S PNAG #### [facility] CLIA [id number] [address] [place] Urinalysis complete panel (U )on 12-03-2024 Bilirubin Ql (U) Negative Normal Negative [facility] Comment on above: Order Comment: Speci men Type: URINE SPECIMENOrdering Facility: [facility] Address: [address] [place] [address] Performed By: #### 2 4356-8 ####[facility] LABORATORYCLIA [id number] [address] [place] Clarity (Unsp spec) Clear Normal Clear [facility] Comment on above: Order Comment: Speci men Type: URINE SPECIMENOrdering Facility: [facility] Address: [address] [place] [address] Performed By: #### 2 4356-8 ####[facility]ORATORYCLIA [id number] [address] [facility] Color (U) Yellow Normal yellow [facility] Comment on above: Order Comment: Speci men Type: URINE SPECIMENOrdering Facility: [facility] Address: [address] [place] [address] Performed By: #### 2 4356-8 ####[facility] LABORATORYCLIA [id number] [address] Epithelial cells LM.HPF (Urine sed) [#/Area] Few Abnormal None Seen [facility] Comment on above: Order Comment: Speci men Type: URINE SPECIMENOrdering Facility: [facility] Address: [address] [place] [address] Performed By: #### 2 4356-8 ####[facility] LABORATORYCLIA [id number] [address] [place] Glucose Test strip (U) [Mass/Vol] Negative Normal Trace, Negative [facility] Comment on above: Order Comment: Speci men Type: URINE SPECIMENOrdering Facility: [facility] Address: [address] [place] [address] Performed By: #### 2 4356-8 ####[facility] LABORATORYCLIA [id number] [address] Hemoglobin Ql (U) Negative Normal Negative, Trace [facility] Comment on above: Order Comment: Speci men Type: URINE SPECIMENOrdering Facility: [facility] Address: [address] [place] [address] Performed By: #### 2 4356-8 ####[facility] LABORATORYCLIA [id number] [address] [place] Hyaline casts (Urine sed) [#/Area] 4-10 /LPF Abnormal 0 /LPF [facility] Comment on above: Order Comment: Speci men Type: URINE SPECIMENOrdering Facility: [facility] Address: [address] [place] [address] Performed By: #### 2 4356-8 ####[facility] LABORATORYCLIA [id number] [place] [address] [place] Ketones Ql (U) Negative Normal Negative, Trace [facility] Comment on above: Order Comment: Speci men Type: URINE SPECIMENOrdering Facility: [facility] Address: [address] [place] [address] Performed By: #### 2 4356-8 ####[facility] LABORATORYCLIA [id number] [address] [place] Leukocyte esterase Test strip Ql (U) Negative Normal Negative, 25 Samanta/uL [facility] Comment on above: Order Comment: Speci men Type: URINE SPECIMENOrdering Facility: [facility] Address: [address] [place] [address] Performed By: #### 2 4356-8 ####[facility]ORATORYCLIA [id number] [address] [place] Nitrite Ql (U) Negative Normal Negative [facility] Comment on above: Order Comment: Speci men Type: URINE SPECIMENOrdering Facility: [facility] Address: [address] [place] [address] Performed By: #### 2 4356-8 ####[facility]ORATORYCLIA [id number] [address] [place] pH (U) 5.5 [pH] Normal 5.0-8.0 [facility] Comment on above: Order Comment: Speci men Type: URINE SPECIMENOrdering Facility: [facility] Address: [address] [place] [address] Performed By: #### 2 4356-8 ####[facility] LABORATORYCLIA [id number] [place] [address] [place] Protein (U) [Mass/Vol] Negative Normal Trace , Negative [facility] Comment on above: Order Comment: Speci men Type: URINE SPECIMENOrdering Facility: [facility] Address: [address] [place] [address] Performed By: #### 2 4356-8 ####[facility] LABORATORYCLIA [id number] [address] [place] RBC LM.HPF (Urine sed) [#/Area] 3-5 /HPF Abnormal 0-3 /HPF [facility] Comment on above: Order Comment: Speci men Type: URINE SPECIMENOrdering Facility: [facility] Address: [address] [place] [address] Performed By: #### 2 4356-8 ####[facility] LABORATORYCLIA [id number] [address] [place] Specific gravity (U) [Rel density] 1.020 Normal 1.005-1.030 [facility] Comment on above: Order Comment: Speci men Type: URINE SPECIMENOrdering Facility: [facility] Address: [address] [place] [address] Performed By: #### 2 4356-8 ####[facility] LABORATORYCLIA [id number] [address] Urobilinogen Ql (U) Normal Normal Normal [facility] Comment on above: Order Comment: Speci men Type: URINE SPECIMENOrdering Facility: [facility] Address: [address] [place] [address] Performed By: #### 2 4356-8 ####[facility] LABORATORYCLIA [id number] [address] [place] WBC LM.HPF (Urine sed) [#/Area] 0-5 /HPF Normal 0-5 /HPF [facility] Comment on above: Order Comment: Speci men Type: URINE SPECIMENOrdering Facility: [facility] Address: [address] [place] [address] Performed By: #### 2 4356-8 ####[facility] LABORATORYCLIA [id number] [address] [place] XR CHEST 1V FRONTALon 2024 [...] with adjacent atelectasis. Infection could appear similar. Career Development Coordinator: PSCJamal Transcribe Date/Time: Dec 03 2024 5:49P Dictated by : REJI KWONG MD This examination was interpreted and the report reviewed and electronically signed by: REJI KWONG MD on Dec 03 2024 5:51PM EST [id number] Normal [facility] Absolute lymphocyte countOrd ered By: Melo Madison on 10-27-2024 Lymphocytes Auto (Unsp spec) [#/Vol] 2.35 10*3/uL 0.83-4.51 [facility] Absolute neutrophil countOrd ered By: Melo Madison on 10-27-2024 Neutrophils (Bld) [#/Vol] 4.3 10*3/uL 2.0-7.7 [facility] Automated lymphocyte count a s percentage of total leukocytesOrdered By: Melo Madison on 10-27-2024 Lymphocytes/100 WBC Auto (Unsp spec) 30.7 % 19-41 [facility] Basophil percentageOrdered B y: Melo Madison on 10-27-2024 Basophils/100 WBC (Bld) 0.8 % 0-1 [facility] Eosinophil percentageOrdered By: Melo Madison on 10-27-2024 Eosinophils/100 WBC (Bld) 1.6 % 0-5 [facility] Erythrocyte distribution wid th ratioOrdered By: Melo Madison on 10-27-2024 Erythrocyte distribution width (RBC) [Ratio] 17.0 % High 11.6-14.6 [facility] Erythrocyte distribution wid th standard deviationOrdered By: Melo Madison on 10-27-2024 Erythrocyte distribution width (RBC) [Ratio] 50.9 fl High 35.1-43.9 [facility] Glomerular filtration rate ( GFR) estimation/1.73 sq m using serum, plasma, or whole bOrdered By: Melo Madison on 10-27-2024 GFR/1.73 sq M.predicted among non-blacks MDRD (S/P/Bld) [Vol rate/Area] 95 mL/min/{1.73_m2} >60 [facility] Comment on above: mL/min/1.73m2 CKD-EP I Creatinine Equation (2020) Hematocrit Auto (Bld) [Volum e fraction]Ordered By: Melo Madison on 10-27-2024 Hematocrit (Bld) [Volume fraction] 46.1 % 40-54 [facility] Hemoglobin measurementOrdere d By: Melo Madison on 10-27-2024 Hemoglobin (Bld) [Mass/Vol] 14.3 g/dL 13.0-16.5 [facility] Immature granulocytes/100 WB C Auto (Bld)Ordered By: Melo Madison on 10-27-2024 Immature granulocytes/100 WBC (Bld) 0.700 % 0.0-0.9 [facility] Comment on above: IG% - Immature Granu locytes (promyelocytes, myelocytes and metamyelocytes) > 1% indicates that a LEFT SHIFT is Present. MCV (mean corpuscular volume ) determinationOrdered By: Melo Madison on 10-27-2024 MCV (RBC) [Entitic vol] 83.8 fL 80-94 [facility] Mean corpuscular hemoglobin (MCH) determinationOrdered By: Melo Madison on 10-27-2024 MCH (RBC) [Entitic mass] 26.0 pg Low 27.0-32.0 [facility] Mean corpuscular hemoglobin concentration (MCHC) determinationOrdered By: Melo Madison on 10-27-2024 MCHC (RBC) [Mass/Vol] 31.0 g/dL Low 32-36 [facility] Mean platelet volume determi nationOrdered By: Melo Madison on 10-27-2024 Platelet mean volume (Bld) [Entitic vol] 10.7 fL 6.2-12.0 [facility] Monocyte percentageOrdered B y: Melo Madison on 10-27-2024 Monocytes/100 WBC (Bld) 10.1 % High 0-10 [facility] Neutrophil percentageOrdered By: Melo Madison on 10-27-2024 Neutrophils/100 WBC (Bld) 56.1 % 47-70 [facility] Nucleated red blood cell per centageOrdered By: Melo Madison on 10-27-2024 Nucleated RBC/100 WBC (Bld) [Ratio] 0 % 0-5 [facility] Platelet countOrdered By: Manuel Madison on 10-27-2024 Platelets (Bld) [#/Vol] 235 10*3/uL 150-450 [facility] RBC Auto (Bld) [#/Vol]Ordere d By: Melo Madison on 10-27-2024 RBC (Bld) [#/Vol] 5.50 10*6/uL 4.6-6.2 [facility] Serum creatinine measurement (mass/volume)Ordered By: Melo Madison on 10-27-2024 Creatinine [Mass/Vol] 0.83 mg/dL 0.70-1.20 [facility] Serum or plasma alanine joiner otransferase (ALT) measurementOrdered By: Meol Madison on 10-27-2024 ALT [Catalytic activity/Vol] 17 U/L <47 [facility] White blood cell (WBC) count Ordered By: Melo Madison on 10-27-2024 WBC (Bld) [#/Vol] 7.7 10*3/uL 4.4-11.0 [facility] Absolute lymphocyte countOrd ered By: Melo Madison on 10-20-2024 Lymphocytes Auto (Unsp spec) [#/Vol] 1.71 10*3/uL 0.83-4.51 [facility] Absolute neutrophil countOrd ered By: Melo Madison on 10-20-2024 Neutrophils (Bld) [#/Vol] 6.5 10*3/uL 2.0-7.7 [facility] Automated lymphocyte count a s percentage of total leukocytesOrdered By: Melo Madison on 10-20-2024 Lymphocytes/100 WBC Auto (Unsp spec) 18.6 % Low 19-41 [facility] Basophil percentageOrdered B y: Melo Madison on 10-20-2024 Basophils/100 WBC (Bld) 0.7 % 0-1 [facility] Eosinophil percentageOrdered By: Melo Madison on 10-20-2024 Eosinophils/100 WBC (Bld) 1.5 % 0-5 [facility] Erythrocyte distribution wid th ratioOrdered By: Melo Madison on 10-20-2024 Erythrocyte distribution width (RBC) [Ratio] 16.5 % High 11.6-14.6 [facility] Erythrocyte distribution wid th standard deviationOrdered By: Melo Madison on 10-20-2024 Erythrocyte distribution width (RBC) [Ratio] 50.0 fl High 35.1-43.9 [facility] Glomerular filtration rate ( GFR) estimation/1.73 sq m using serum, plasma, or whole bOrdered By: Melo Madison on 10-20-2024 GFR/1.73 sq M.predicted among non-blacks MDRD (S/P/Bld) [Vol rate/Area] 94 mL/min/{1.73_m2} >60 [facility] Comment on above: mL/min/1.73m2 CKD-EP I Creatinine Equation (2020) Hematocrit Auto (Bld) [Volum e fraction]Ordered By: Melo Madison on 10-20-2024 Hematocrit (Bld) [Volume fraction] 42.4 % 40-54 [facility] Hemoglobin measurementOrdere d By: Melo Madison on 10-20-2024 Hemoglobin (Bld) [Mass/Vol] 13.6 g/dL 13.0-16.5 [facility] Immature granulocytes/100 WB C Auto (Bld)Ordered By: Melo Madison on 10-20-2024 Immature granulocytes/100 WBC (Bld) 0.400 % 0.0-0.9 [facility] Comment on above: IG% - Immature Granu locytes (promyelocytes, myelocytes and metamyelocytes) > 1% indicates that a LEFT SHIFT is Present. MCV (mean corpuscular volume ) determinationOrdered By: Melo Madison on 10-20-2024 MCV (RBC) [Entitic vol] 82.8 fL 80-94 [facility] Mean corpuscular hemoglobin (MCH) determinationOrdered By: Melo Madison on 10-20-2024 MCH (RBC) [Entitic mass] 26.6 pg Low 27.0-32.0 [facility] Mean corpuscular hemoglobin concentration (MCHC) determinationOrdered By: Melo Madison on 10-20-2024 MCHC (RBC) [Mass/Vol] 32.1 g/dL 32-36 [facility] Mean platelet volume determi nationOrdered By: Melo Madison on 10-20-2024 Platelet mean volume (Bld) [Entitic vol] 10.3 fL 6.2-12.0 [facility] Monocyte percentageOrdered B y: Melo Madison on 10-20-2024 Monocytes/100 WBC (Bld) 7.9 % 0-10 [facility] Neutrophil percentageOrdered By: Melo Madison on 10-20-2024 Neutrophils/100 WBC (Bld) 70.9 % High 47-70 [facility] Nucleated red blood cell per centageOrdered By: Melo Madison on 10-20-2024 Nucleated RBC/100 WBC (Bld) [Ratio] 0 % 0-5 [facility] Platelet countOrdered By: Manuel Madison on 10-20-2024 Platelets (Bld) [#/Vol] 205 10*3/uL 150-450 [facility] RBC Auto (Bld) [#/Vol]Ordere d By: Melo Madison on 10-20-2024 RBC (Bld) [#/Vol] 5.12 10*6/uL 4.6-6.2 [facility] Serum creatinine measurement (mass/volume)Ordered By: Melo Madison on 10-20-2024 Creatinine [Mass/Vol] 0.88 mg/dL 0.70-1.20 [facility] Serum or plasma alanine joiner otransferase (ALT) measurementOrdered By: Mleo Madison on 10-20-2024 ALT [Catalytic activity/Vol] 8 U/L <47 [facility] White blood cell (WBC) count Ordered By: Melo Madison on 10-20-2024 WBC (Bld) [#/Vol] 9.2 10*3/uL 4.4-11.0 [facility] CNOVon 10-14-2024 CNOV [facility] Absolute lymphocyte countOrd ered By: Melo Madison on 10-13-2024 Lymphocytes Auto (Unsp spec) [#/Vol] 1.72 10*3/uL 0.83-4.51 [facility] Absolute neutrophil countOrd ered By: Melo Madison on 10-13-2024 Neutrophils (Bld) [#/Vol] 5.2 10*3/uL 2.0-7.7 [facility] Automated lymphocyte count a s percentage of total leukocytesOrdered By: Melo Madison on 10-13-2024 Lymphocytes/100 WBC Auto (Unsp spec) 21.8 % 19-41 [facility] Basophil percentageOrdered B y: Melo Madison on 10-13-2024 Basophils/100 WBC (Bld) 0.8 % 0-1 [facility] Eosinophil percentageOrdered By: Melo Madison on 10-13-2024 Eosinophils/100 WBC (Bld) 2.0 % 0-5 [facility] Erythrocyte distribution wid th ratioOrdered By: Melo Madison on 10-13-2024 Erythrocyte distribution width (RBC) [Ratio] 16.5 % High 11.6-14.6 [facility] Erythrocyte distribution wid th standard deviationOrdered By: Melo Madison on 10-13-2024 Erythrocyte distribution width (RBC) [Ratio] 50.7 fl High 35.1-43.9 [facility] Glomerular filtration rate ( GFR) estimation/1.73 sq m using serum, plasma, or whole bOrdered By: Melo Madison on 10-13-2024 GFR/1.73 sq M.predicted among non-blacks MDRD (S/P/Bld) [Vol rate/Area] 75 mL/min/{1.73_m2} >60 [facility] Comment on above: mL/min/1.73m2 CKD-EP I Creatinine Equation (2020) Hematocrit Auto (Bld) [Volum e fraction]Ordered By: Melo Madison on 10-13-2024 Hematocrit (Bld) [Volume fraction] 41.2 % 40-54 [facility] Hemoglobin measurementOrdere d By: Melo Madison on 10-13-2024 Hemoglobin (Bld) [Mass/Vol] 12.8 g/dL Low 13.0-16.5 [facility] Immature granulocytes/100 WB C Auto (Bld)Ordered By: Melo Madison on 10-13-2024 Immature granulocytes/100 WBC (Bld) 0.400 % 0.0-0.9 [facility] Comment on above: IG% - Immature Granu locytes (promyelocytes, myelocytes and metamyelocytes) > 1% indicates that a LEFT SHIFT is Present. MCV (mean corpuscular volume ) determinationOrdered By: Melo Madison on 10-13-2024 MCV (RBC) [Entitic vol] 85.5 fL 80-94 [facility] Mean corpuscular hemoglobin (MCH) determinationOrdered By: Melo Madison on 10-13-2024 MCH (RBC) [Entitic mass] 26.6 pg Low 27.0-32.0 [facility] Mean corpuscular hemoglobin concentration (MCHC) determinationOrdered By: Melo Madison on 10-13-2024 MCHC (RBC) [Mass/Vol] 31.1 g/dL Low 32-36 [facility] Mean platelet volume determi nationOrdered By: Melo Madison on 10-13-2024 Platelet mean volume (Bld) [Entitic vol] 10.7 fL 6.2-12.0 [facility] Monocyte percentageOrdered B y: Melo Madison on 10-13-2024 Monocytes/100 WBC (Bld) 9.6 % 0-10 [facility] Neutrophil percentageOrdered By: Melo Madison on 10-13-2024 Neutrophils/100 WBC (Bld) 65.4 % 47-70 [facility] Nucleated red blood cell per centageOrdered By: Melo Madison on 10-13-2024 Nucleated RBC/100 WBC (Bld) [Ratio] 0 % 0-5 [facility] Platelet countOrdered By: Manuel Madison on 10-13-2024 Platelets (Bld) [#/Vol] 185 10*3/uL 150-450 [facility] RBC Auto (Bld) [#/Vol]Ordere d By: Melo Madison on 10-13-2024 RBC (Bld) [#/Vol] 4.82 10*6/uL 4.6-6.2 [facility] Serum creatinine measurement (mass/volume)Ordered By: Melo Madison on 10-13-2024 Creatinine [Mass/Vol] 1.08 mg/dL 0.70-1.20 [facility] Serum or plasma alanine joiner otransferase (ALT) measurementOrdered By: Melo Madison on 10-13-2024 ALT [Catalytic activity/Vol] 11 U/L <47 [facility] White blood cell (WBC) count Ordered By: Melo Madison on 10-13-2024 WBC (Bld) [#/Vol] 7.9 10*3/uL 4.4-11.0 [facility] Absolute lymphocyte countOrd ered By: Melo Madison on 10-06-2024 Lymphocytes Auto (Unsp spec) [#/Vol] 1.50 10*3/uL 0.83-4.51 [facility] Absolute neutrophil countOrd ered By: Melo Madison on 10-06-2024 Neutrophils (Bld) [#/Vol] 3.6 10*3/uL 2.0-7.7 [facility] Automated lymphocyte count a s percentage of total leukocytesOrdered By: Melo Madison on 10-06-2024 Lymphocytes/100 WBC Auto (Unsp spec) 25.0 % 19-41 [facility] Basophil percentageOrdered B y: Melo Madison on 10-06-2024 Basophils/100 WBC (Bld) 0.8 % 0-1 [facility] Eosinophil percentageOrdered By: Melo Madison on 10-06-2024 Eosinophils/100 WBC (Bld) 3.7 % 0-5 [facility] Erythrocyte distribution wid th ratioOrdered By: Melo Madison on 10-06-2024 Erythrocyte distribution width (RBC) [Ratio] 16.1 % High 11.6-14.6 [facility] Erythrocyte distribution wid th standard deviationOrdered By: Melo Madison on 10-06-2024 Erythrocyte distribution width (RBC) [Ratio] 48.1 fl High 35.1-43.9 [facility] Glomerular filtration rate ( GFR) estimation/1.73 sq m using serum, plasma, or whole bOrdered By: Melo Madison on 10-06-2024 GFR/1.73 sq M.predicted among non-blacks MDRD (S/P/Bld) [Vol rate/Area] 72 mL/min/{1.73_m2} >60 [facility] Comment on above: mL/min/1.73m2 CKD-EP I Creatinine Equation (2020) Hematocrit Auto (Bld) [Volum e fraction]Ordered By: Melo Madison on 10-06-2024 Hematocrit (Bld) [Volume fraction] 42.7 % 40-54 [facility] Hemoglobin measurementOrdere d By: Melo Madison on 10-06-2024 Hemoglobin (Bld) [Mass/Vol] 13.7 g/dL 13.0-16.5 [facility] Immature granulocytes/100 WB C Auto (Bld)Ordered By: Melo Madison on 10-06-2024 Immature granulocytes/100 WBC (Bld) 0.500 % 0.0-0.9 [facility] Comment on above: IG% - Immature Granu locytes (promyelocytes, myelocytes and metamyelocytes) > 1% indicates that a LEFT SHIFT is Present. MCV (mean corpuscular volume ) determinationOrdered By: Melo Madison on 10-06-2024 MCV (RBC) [Entitic vol] 82.0 fL 80-94 [facility] Mean corpuscular hemoglobin (MCH) determinationOrdered By: Melo Madison on 10-06-2024 MCH (RBC) [Entitic mass] 26.3 pg Low 27.0-32.0 [facility] Mean corpuscular hemoglobin concentration (MCHC) determinationOrdered By: Melo Madison on 10-06-2024 MCHC (RBC) [Mass/Vol] 32.1 g/dL 32-36 [facility] Mean platelet volume determi nationOrdered By: Melo Madison on 10-06-2024 Platelet mean volume (Bld) [Entitic vol] 10.8 fL 6.2-12.0 [facility] Monocyte percentageOrdered B y: Melo Madison on 10-06-2024 Monocytes/100 WBC (Bld) 10.8 % High 0-10 [facility] Neutrophil percentageOrdered By: Melo Madison on 10-06-2024 Neutrophils/100 WBC (Bld) 59.2 % 47-70 [facility] Nucleated red blood cell per centageOrdered By: Melo Madison on 10-06-2024 Nucleated RBC/100 WBC (Bld) [Ratio] 0 % 0-5 [facility] Platelet countOrdered By: Manuel Madison on 10-06-2024 Platelets (Bld) [#/Vol] 190 10*3/uL 150-450 [facility] RBC Auto (Bld) [#/Vol]Ordere d By: Melo Madison on 10-06-2024 RBC (Bld) [#/Vol] 5.21 10*6/uL 4.6-6.2 [facility] Serum creatinine measurement (mass/volume)Ordered By: Melo Madison on 10-06-2024 Creatinine [Mass/Vol] 1.12 mg/dL 0.70-1.20 [facility] Serum or plasma alanine joiner otransferase (ALT) measurementOrdered By: Melo Madison on 10-06-2024 ALT [Catalytic activity/Vol] 22 U/L <47 [facility] White blood cell (WBC) count Ordered By: Melo Madison on 10-06-2024 WBC (Bld) [#/Vol] 6.0 10*3/uL 4.4-11.0 [facility] Absolute lymphocyte countOrd ered By: Melo Madison on 2024 Lymphocytes Auto (Unsp spec) [#/Vol] 1.92 10*3/uL 0.83-4.51 [facility] Absolute neutrophil countOrd ered By: Melo Madison on 2024 Neutrophils (Bld) [#/Vol] 4.2 10*3/uL 2.0-7.7 [facility] Anion gap in Serum or Plasma Ordered By: Melo Madison on 2024 Anion gap [Moles/Vol] 10 mmol/L 5-15 [facility] Automated lymphocyte count a s percentage of total leukocytesOrdered By: Melo Madison on 2024 Lymphocytes/100 WBC Auto (Unsp spec) 26.9 % 19-41 [facility] BUN/creatinine ratioOrdered By: Melo Madison on 2024 Urea nitrogen/Creatinine [Mass ratio] 6.6 mg/mg Low 10-20 [facility] Basophil percentageOrdered B y: Melo Madison on 2024 Basophils/100 WBC (Bld) 0.6 % 0-1 [facility] Bilirubin, totalOrdered By: Melo Madison on 2024 Bilirubin [Mass/Vol] 0.46 mg/dL 0.00-1.30 [facility] Carbon dioxide, total [Moles /volume] in Central venous bloodOrdered By: Melo Madison on 2024 CO2 [Moles/Vol] 25.6 mmol/L 21.0-32.0 [facility] Chloride assayOrdered By: carloz Madison on 2024 Chloride [Moles/Vol] 101 mmol/L 98-108 [facility] Eosinophil percentageOrdered By: Melo Madison on 2024 Eosinophils/100 WBC (Bld) 2.8 % 0-5 [facility] Erythrocyte distribution wid th ratioOrdered By: Melo Madison on 2024 Erythrocyte distribution width (RBC) [Ratio] 15.8 % High 11.6-14.6 [facility] Erythrocyte distribution wid th standard deviationOrdered By: Melo Madison on 2024 Erythrocyte distribution width (RBC) [Ratio] 46.6 fl High 35.1-43.9 [facility] Glomerular filtration rate ( GFR) estimation/1.73 sq m using serum, plasma, or whole bOrdered By: Melo Madison on 2024 GFR/1.73 sq M.predicted among non-blacks MDRD (S/P/Bld) [Vol rate/Area] 75 mL/min/{1.73_m2} >60 [facility] Comment on above: mL/min/1.73m2 CKD-EP I Creatinine Equation (2020) Hematocrit Auto (Bld) [Volum e fraction]Ordered By: Melo Madison on 2024 Hematocrit (Bld) [Volume fraction] 43.9 % 40-54 [facility] Hemoglobin measurementOrdere d By: Melo Madison on 2024 Hemoglobin (Bld) [Mass/Vol] 14.1 g/dL 13.0-16.5 [facility] Immature granulocytes/100 WB C Auto (Bld)Ordered By: Melo Madison on 2024 Immature granulocytes/100 WBC (Bld) 0.400 % 0.0-0.9 [facility] Comment on above: IG% - Immature Granu locytes (promyelocytes, myelocytes and metamyelocytes) > 1% indicates that a LEFT SHIFT is Present. Laboratory - Chemistry and C hemistry - challengeOrdered By: Melo Madison on 2024 AST [Catalytic activity/Vol] 25 U/L <38 [facility] MCV (mean corpuscular volume ) determinationOrdered By: Melo Madison on 2024 MCV (RBC) [Entitic vol] 81.8 fL 80-94 [facility] Mean corpuscular hemoglobin (MCH) determinationOrdered By: Melo Madison on 2024 MCH (RBC) [Entitic mass] 26.3 pg Low 27.0-32.0 [facility] Mean corpuscular hemoglobin concentration (MCHC) determinationOrdered By: Melo Madison on 2024 MCHC (RBC) [Mass/Vol] 32.1 g/dL 32-36 [facility] Mean platelet volume determi nationOrdered By: Melo Madison on 2024 Platelet mean volume (Bld) [Entitic vol] 10.5 fL 6.2-12.0 [facility] Monocyte percentageOrdered B y: Melo Madison on 2024 Monocytes/100 WBC (Bld) 10.4 % High 0-10 [facility] Neutrophil percentageOrdered By: Melo Madison on 2024 Neutrophils/100 WBC (Bld) 58.9 % 47-70 [facility] Nucleated red blood cell per centageOrdered By: Melo Madison on 2024 Nucleated RBC/100 WBC (Bld) [Ratio] 0 % 0-5 [facility] Platelet countOrdered By: Manuel Madison on 2024 Platelets (Bld) [#/Vol] 194 10*3/uL 150-450 [facility] Potassium measurement (mass/ volume)Ordered By: Melo Madison on 2024 Potassium (Unsp spec) [Mass/Vol] 3.6 mmol/L 3.3-5.1 [facility] RBC Auto (Bld) [#/Vol]Ordere d By: Melo Madison on 2024 RBC (Bld) [#/Vol] 5.37 10*6/uL 4.6-6.2 [facility] Serum creatinine measurement (mass/volume)Ordered By: Melo Madison on 2024 Creatinine [Mass/Vol] 1.08 mg/dL 0.70-1.20 [facility] Serum globulin measurementOr dered By: Melo Madison on 2024 Globulin (S) [Mass/Vol] 3.5 g/dL 2.2-4.2 [facility] Serum glucose measurement (m ass/volume)Ordered By: Melo Madison on 2024 Glucose [Mass/Vol] 83 mg/dL 70-99 [facility] Serum or plasma alanine joiner otransferase (ALT) measurementOrdered By: Melo Madison on 2024 ALT [Catalytic activity/Vol] 18 U/L <47 [facility] Serum or plasma albumin wandy urement (mass/volume)Ordered By: Melo Madison on 2024 Albumin [Mass/Vol] 3.5 g/dL 3.4-4.8 [facility] Serum or plasma albumin/glob ulin mass ratioOrdered By: Melo Madison on 2024 Albumin/Globulin [Mass ratio] 1.0 {ratio} 0.9-2.4 [facility] Serum or plasma alkaline radha sphatase measurementOrdered By: Melo Madison on 2024 ALP [Catalytic activity/Vol] 123 U/L 40-129 [facility] Serum or plasma calcium wandy urement (mass/volume)Ordered By: Melo Madison on 2024 Calcium [Mass/Vol] 9.0 mg/dL 7.6-11.0 [facility] Serum or plasma urea nitroge n measurement (mass/volume)Ordered By: Melo Madison on 2024 Urea nitrogen [Mass/Vol] 7 mg/dL 4-19 [facility] Sodium levelOrdered By: Hugo Madison on 2024 Sodium [Moles/Vol] 137 mmol/L 133-145 [facility] Total proteinOrdered By: Lance Madison on 2024 Protein [Mass/Vol] 7.0 g/dL 5.9-8.4 [facility] White blood cell (WBC) count Ordered By: Melo Madison on 2024 WBC (Bld) [#/Vol] 7.1 10*3/uL 4.4-11.0 [facility] Anion gap in Serum or Plasma Ordered By: Melo Madison on 09-23-2024 Anion gap [Moles/Vol] 9 mmol/L 5-15 [facility] BUN/creatinine ratioOrdered By: Melo Madison on 09-23-2024 Urea nitrogen/Creatinine [Mass ratio] 9.5 mg/mg Low 10-20 [facility] Bilirubin directOrdered By: Melo Madison on 09-23-2024 Bilirubin.direct [Mass/Vol] 0.12 mg/dL 0.00-0.30 [facility] Comment on above: Hemolysis present, R esults could be affected. Bilirubin, totalOrdered By: Melo Madison on 09-23-2024 Bilirubin [Mass/Vol] 0.27 mg/dL 0.00-1.30 [facility] Carbon dioxide, total [Moles /volume] in Central venous bloodOrdered By: Melo Madison on 09-23-2024 CO2 [Moles/Vol] 27.2 mmol/L 21.0-32.0 [facility] Chloride assayOrdered By: Manuel Madison on 09-23-2024 Chloride [Moles/Vol] 101 mmol/L 98-108 [facility] Erythrocyte distribution wid th ratioOrdered By: Melo Madison on 09-23-2024 Erythrocyte distribution width (RBC) [Ratio] 15.5 % High 11.6-14.6 [facility] Erythrocyte distribution wid th standard deviationOrdered By: Melo Madison on 09-23-2024 Erythrocyte distribution width (RBC) [Ratio] 47.3 fl High 35.1-43.9 [facility] Glomerular filtration rate ( GFR) estimation/1.73 sq m using serum, plasma, or whole bOrdered By: Melo Madison on 09-23-2024 GFR/1.73 sq M.predicted among non-blacks MDRD (S/P/Bld) [Vol rate/Area] 76 mL/min/{1.73_m2} >60 [facility] Comment on above: mL/min/1.73m2 CKD-EP I Creatinine Equation (2020) Hematocrit Auto (Bld) [Volum e fraction]Ordered By: Melo Madison on 09-23-2024 Hematocrit (Bld) [Volume fraction] 42.4 % 40-54 [facility] Hemoglobin measurementOrdere d By: Melo Madison on 09-23-2024 Hemoglobin (Bld) [Mass/Vol] 13.1 g/dL 13.0-16.5 [facility] Laboratory - Chemistry and C hemistry - challengeOrdered By: Melo Madison on 09-23-2024 AST [Catalytic activity/Vol] 23 U/L <38 [facility] Comment on above: Hemolysis present, R esults could be affected. MCV (mean corpuscular volume ) determinationOrdered By: Melo Madison on 09-23-2024 MCV (RBC) [Entitic vol] 84.0 fL 80-94 [facility] Mean corpuscular hemoglobin (MCH) determinationOrdered By: Melo Madison on 09-23-2024 MCH (RBC) [Entitic mass] 25.9 pg Low 27.0-32.0 [facility] Mean corpuscular hemoglobin concentration (MCHC) determinationOrdered By: Melo Madison on 09-23-2024 MCHC (RBC) [Mass/Vol] 30.9 g/dL Low 32-36 [facility] Mean platelet volume determi nationOrdered By: Melo Madison on 09-23-2024 Platelet mean volume (Bld) [Entitic vol] 10.5 fL 6.2-12.0 [facility] Platelet countOrdered By: Manuel Madison on 09-23-2024 Platelets (Bld) [#/Vol] 250 10*3/uL 150-450 [facility] Potassium measurement (mass/ volume)Ordered By: Melo Madison on 09-23-2024 Potassium (Unsp spec) [Mass/Vol] 4.1 mmol/L 3.3-5.1 [facility] Comment on above: Hemolysis present, R esults could be affected. RBC Auto (Bld) [#/Vol]Ordere d By: Melo Madison on 09-23-2024 RBC (Bld) [#/Vol] 5.05 10*6/uL 4.6-6.2 [facility] Serum creatinine measurement (mass/volume)Ordered By: Melo Madison on 09-23-2024 Creatinine [Mass/Vol] 1.07 mg/dL 0.70-1.20 [facility] Serum globulin measurementOr dered By: Melo Madison on 09-23-2024 Globulin (S) [Mass/Vol] 3.5 g/dL 2.2-4.2 [facility] Serum glucose measurement (m ass/volume)Ordered By: Melo Madison on 09-23-2024 Glucose [Mass/Vol] 143 mg/dL High 70-99 [facility] Serum or plasma alanine joiner otransferase (ALT) measurementOrdered By: Melo Madison on 09-23-2024 ALT [Catalytic activity/Vol] 13 U/L <47 [facility] Serum or plasma albumin wandy urement (mass/volume)Ordered By: Melo Madison on 09-23-2024 Albumin [Mass/Vol] 3.2 g/dL Low 3.4-4.8 [facility] Serum or plasma albumin/glob ulin mass ratioOrdered By: Melo Madison on 09-23-2024 Albumin/Globulin [Mass ratio] 0.9 {ratio} 0.9-2.4 [facility] Serum or plasma alkaline radha sphatase measurementOrdered By: Melo Madison on 09-23-2024 ALP [Catalytic activity/Vol] 115 U/L 40-129 [facility] Serum or plasma calcium wandy urement (mass/volume)Ordered By: Melo Madison on 09-23-2024 Calcium [Mass/Vol] 8.8 mg/dL 7.6-11.0 [facility] Serum or plasma urea nitroge n measurement (mass/volume)Ordered By: Melo Madison on 09-23-2024 Urea nitrogen [Mass/Vol] 10 mg/dL 4-19 [facility] Sodium levelOrdered By: Hugo Madison on 09-23-2024 Sodium [Moles/Vol] 137 mmol/L 133-145 [facility] Total proteinOrdered By: Lance Madison on 09-23-2024 Protein [Mass/Vol] 6.6 g/dL 5.9-8.4 [facility] White blood cell (WBC) count Ordered By: Melo Madison on 09-23-2024 WBC (Bld) [#/Vol] 8.6 10*3/uL 4.4-11.0 [facility] Bacteria Wnd Culton 09-17-19 25 Bacteria identified Cx Nom (Wound) Abnormal [facility] Comment on above: Performed By: #### [phone] ####[facility] LABCL[facility] [id number] [address] [facility] CNOVon 09-16-2024 CNOV Normal [facility] Absolute lymphocyte countOrd ered By: Melo Madison on 08-04-2024 Lymphocytes Auto (Unsp spec) [#/Vol] 2.20 10*3/uL 0.83-4.51 [facility] Absolute neutrophil countOrd ered By: Melo Madison on 08-04-2024 Neutrophils (Bld) [#/Vol] 7.0 10*3/uL 2.0-7.7 [facility] Albumin to globulin ratioOrd ered By: Melo Madison on 08-04-2024 Albumin/Globulin [Mass ratio] 0.9 {ratio} 0.9-2.4 [facility] Automated lymphocyte count a s percentage of total leukocytesOrdered By: Melo Madison on 08-04-2024 Lymphocytes/100 WBC Auto (Unsp spec) 20.5 % 19-41 [facility] Basophil percentageOrdered B y: Melo Madison on 08-04-2024 Basophils/100 WBC (Bld) 0.7 % 0-1 [facility] Bilirubin directOrdered By: Melo Madison on 08-04-2024 Bilirubin.direct [Mass/Vol] 0.09 mg/dL 0.00-0.30 [facility] Bilirubin, totalOrdered By: Melo Madison on 08-04-2024 Bilirubin [Mass/Vol] 0.30 mg/dL 0.20-1.00 [facility] Comment on above: For patients on eltr ombopag therapy, use of Dimension [place] TBIL is not recommended. Blood urea nitrogen (BUN)/cr eatinine ratioOrdered By: Melo Madison on 08-04-2024 Urea nitrogen/Creatinine [Mass ratio] 14.5 mg/mg 10-20 [facility] C-reactive protein measureme nt by high sensitivity methodOrdered By: Melo Madison on 08-04-2024 C-reactive protein measurement by high sensitivity method 6.88 mg/L High 0.0-3.0 [facility] Comment on above: C-Reactive Protein ( CRP) provides useful information for thediagnosis, therapy and monitoring of inflammatory processesand associated diseases. For the evaluation of Relative Riskfor Cardiovascular Disease, a High Sensitivity CRP (HSCRP)should be ordered. Carbon dioxide measurementOr dered By: Melo Madison on 08-04-2024 CO2 [Moles/Vol] 29.0 mmol/L 21.0-32.0 [facility] Chloride measurementOrdered By: Melo Madison on 08-04-2024 Chloride [Moles/Vol] 105 mmol/L 98-107 [facility] Eosinophil percentageOrdered By: Melo Madison on 08-04-2024 Eosinophils/100 WBC (Bld) 3.3 % 0-5 [facility] Erythrocyte distribution wid th ratioOrdered By: Melo Madison on 08-04-2024 Erythrocyte distribution width (RBC) [Ratio] 15.3 % High 11.6-14.6 [facility] Erythrocyte distribution wid th standard deviationOrdered By: Melo Madison on 08-04-2024 Erythrocyte distribution width (RBC) [Ratio] 48.8 fl High 35.1-43.9 [facility] Erythrocyte sedimentation ra teOrdered By: Melo Madison on 08-04-2024 ESR (Bld) [Velocity] 19 mm/h 0-20 [facility] Glomerular filtration rate ( GFR) estimationOrdered By: Melo Madison on 08-04-2024 GFR/1.73 sq M.predicted among non-blacks MDRD (S/P/Bld) [Vol rate/Area] 90 mL/min/{1.73_m2} >60 [facility] Comment on above: Non- GFR Calc Glucose measurementOrdered B y: Melo Madison on 08-04-2024 Glucose [Mass/Vol] 99 mg/dL 74-106 [facility] Hematocrit Auto (Bld) [Volum e fraction]Ordered By: Melo Madison on 08-04-2024 Hematocrit (Bld) [Volume fraction] 40.0 % 40-54 [facility] Hemoglobin measurementOrdere d By: Melo Madison on 08-04-2024 Hemoglobin (Bld) [Mass/Vol] 12.6 g/dL Low 13.0-16.5 [facility] High density lipoprotein (HD L) measurementOrdered By: Melo Madison on 08-04-2024 Cholesterol in HDL [Mass/Vol] 54 mg/dL >40 [facility] Comment on above: The drugs N-Acetylcy steine and Metamizole may falsely depress this assay. Reference Range HDL <40 mg/dL Low HDL Cholesterol HDL >or= 60 mg/dL High HDL Cholesterol Immature granulocytes/100 WB C Auto (Bld)Ordered By: Melo Madison on 08-04-2024 Immature granulocytes/100 WBC (Bld) 0.700 % 0.0-0.9 [facility] Comment on above: IG% - Immature Granu locytes (promyelocytes, myelocytes and metamyelocytes) > 1% indicates that a LEFT SHIFT is Present. Laboratory - Chemistry and C hemistry - challengeOrdered By: Melo Madison on 08-04-2024 AST [Catalytic activity/Vol] 18 U/L 15-37 [facility] Low density lipoprotein (LDL ) cholesterol measurementOrdered By: Melo Madison on 08-04-2024 Cholesterol in LDL [Mass/Vol] 29 mg/dL 0-130 [facility] MCV (mean corpuscular volume ) determinationOrdered By: Melo Madison on 08-04-2024 MCV (RBC) [Entitic vol] 87.3 fL 80-94 [facility] Mean corpuscular hemoglobin (MCH) determinationOrdered By: Melo Madison on 08-04-2024 MCH (RBC) [Entitic mass] 27.5 pg 27.0-32.0 [facility] Mean corpuscular hemoglobin concentration (MCHC) determinationOrdered By: Melo Madison on 08-04-2024 MCHC (RBC) [Mass/Vol] 31.5 g/dL Low 32-36 [facility] Mean platelet volume determi nationOrdered By: Melo Madison on 08-04-2024 Platelet mean volume (Bld) [Entitic vol] 11.4 fL 6.2-12.0 [facility] Monocyte percentageOrdered B y: Melo Madison on 08-04-2024 Monocytes/100 WBC (Bld) 9.3 % 0-10 [facility] Neutrophil percentageOrdered By: Melo Madison on 08-04-2024 Neutrophils/100 WBC (Bld) 65.5 % 47-70 [facility] Nucleated red blood cell per centageOrdered By: Melo Madison on 08-04-2024 Nucleated RBC/100 WBC (Bld) [Ratio] 0 % 0-5 [facility] Platelet countOrdered By: Manuel Madison on 08-04-2024 Platelets (Bld) [#/Vol] 177 10*3/uL 150-450 [facility] Potassium measurementOrdered By: Melo Madison on 08-04-2024 Potassium [Moles/Vol] 4.3 mmol/L 3.5-5.1 [facility] RBC Auto (Bld) [#/Vol]Ordere d By: Melo Madison on 08-04-2024 RBC (Bld) [#/Vol] 4.58 10*6/uL Low 4.6-6.2 [facility] Serum anion gap measurementO rdered By: Melo Madison on 08-04-2024 Anion gap [Moles/Vol] 7 mmol/L 5-15 [facility] Serum globulin measurementOr dered By: Melo Madison on 08-04-2024 Globulin (S) [Mass/Vol] 3.1 g/dL 2.2-4.2 [facility] Serum or plasma alanine joiner otransferase (ALT) measurementOrdered By: Melo Madison on 08-04-2024 ALT [Catalytic activity/Vol] 27 U/L 16-61 [facility] Serum or plasma albumin wandy urement (mass/volume)Ordered By: Melo Madison on 08-04-2024 Albumin [Mass/Vol] 2.8 g/dL Low 3.2-5.0 [facility] Serum or plasma alkaline radha sphatase measurementOrdered By: Melo Madison on 08-04-2024 ALP [Catalytic activity/Vol] 111 U/L 45-117 [facility] Serum or plasma calcium wandy urement (mass/volume)Ordered By: Melo Madison on 08-04-2024 Calcium [Mass/Vol] 8.6 mg/dL 8.5-10.1 [facility] Serum or plasma cholesterol measurement (mass/volume)Ordered By: Melo Madison on 08-04-2024 Cholesterol [Mass/Vol] 117 mg/dL <200 [facility] Comment on above: <200 mg/dL Desirable 200-240 mg/dL Borderline >240 mg/dL High Risk Serum or plasma creatinine m easurement (mass/volume)Ordered By: Melo Madison on 08-04-2024 Creatinine [Mass/Vol] 0.90 mg/dL 0.70-1.30 [facility] Comment on above: The validity of the calculated GFR & GFRAA in patients over 70 years has not been determined. Clinical correlation is essential. Serum or plasma urea nitroge n measurement (mass/volume)Ordered By: Melo Madison on 08-04-2024 Urea nitrogen [Mass/Vol] 13 mg/dL 7-18 [facility] Sodium levelOrdered By: Hugo Madison on 08-04-2024 Sodium [Moles/Vol] 141 mmol/L 136-145 [facility] Total proteinOrdered By: Lance Madison on 08-04-2024 Protein [Mass/Vol] 5.9 g/dL Low 6.4-8.2 [facility] Triglycerides measurementOrd ered By: Melo Madison on 08-04-2024 Triglyceride [Mass/Vol] 170 mg/dL <199 [facility] Comment on above: The drugs N-Acetylcy steine and Metamizole may falsely depress this assay.Serum Triglycerides Reference Interval Normal <150 mg/dL Borderline high 150 - 199 mg/dL High 200 - 499 mg/dL Very High > or = 500 mg/dL Very low density lipoprotein (VLDL) cholesterol measurementOrdered By: Melo Madison on 08-04-2024 Very low density lipoprotein (VLDL) cholesterol measurement 34 mg/dL 5-40 [facility] [facility] White blood cell (WBC) count Ordered By: Melo Madison on 08-04-2024 WBC (Bld) [#/Vol] 10.7 10*3/uL 4.4-11.0 [facility] Absolute lymphocyte countOrd ered By: Melo Madison on 07-29-2024 Lymphocytes Auto (Unsp spec) [#/Vol] 1.95 10*3/uL 0.83-4.51 [facility] Absolute neutrophil countOrd ered By: Melo Madison on 07-29-2024 Neutrophils (Bld) [#/Vol] 5.6 10*3/uL 2.0-7.7 [facility] Automated lymphocyte count a s percentage of total leukocytesOrdered By: Melo Madison on 07-29-2024 Lymphocytes/100 WBC Auto (Unsp spec) 22.4 % 19-41 [facility] Basophil percentageOrdered B y: Melo Madison on 07-29-2024 Basophils/100 WBC (Bld) 0.8 % 0-1 [facility] Bilirubin directOrdered By: Melo Madison on 07-29-2024 Bilirubin.direct [Mass/Vol] 0.10 mg/dL 0.00-0.30 [facility] Bilirubin, totalOrdered By: Melo Madison on 07-29-2024 Bilirubin [Mass/Vol] 0.40 mg/dL 0.20-1.00 [facility] Comment on above: For patients on eltr ombopag therapy, use of Dimension [place] TBIL is not recommended. Eosinophil percentageOrdered By: Melo Madison on 07-29-2024 Eosinophils/100 WBC (Bld) 2.1 % 0-5 [facility] Erythrocyte distribution wid th ratioOrdered By: Melo Madison on 07-29-2024 Erythrocyte distribution width (RBC) [Ratio] 15.4 % High 11.6-14.6 [facility] Erythrocyte distribution wid th standard deviationOrdered By: Melo Madison on 07-29-2024 Erythrocyte distribution width (RBC) [Ratio] 48.7 fl High 35.1-43.9 [facility] Glomerular filtration rate ( GFR) estimationOrdered By: Melo Madison on 07-29-2024 GFR/1.73 sq M.predicted among non-blacks MDRD (S/P/Bld) [Vol rate/Area] 80 mL/min/{1.73_m2} >60 [facility] Comment on above: Non- GFR Calc Hematocrit Auto (Bld) [Volum e fraction]Ordered By: Melo Madison on 07-29-2024 Hematocrit (Bld) [Volume fraction] 40.7 % 40-54 [facility] Hemoglobin measurementOrdere d By: Melo Madison on 07-29-2024 Hemoglobin (Bld) [Mass/Vol] 12.7 g/dL Low 13.0-16.5 [facility] Immature granulocytes/100 WB C Auto (Bld)Ordered By: Melo Madison on 07-29-2024 Immature granulocytes/100 WBC (Bld) 0.600 % 0.0-0.9 [facility] Comment on above: IG% - Immature Granu locytes (promyelocytes, myelocytes and metamyelocytes) > 1% indicates that a LEFT SHIFT is Present. Laboratory - Chemistry and C hemistry - challengeOrdered By: Melo Madison on 07-29-2024 AST [Catalytic activity/Vol] 19 U/L 15-37 [facility] MCV (mean corpuscular volume ) determinationOrdered By: Melo Madison on 07-29-2024 MCV (RBC) [Entitic vol] 86.4 fL 80-94 [facility] Mean corpuscular hemoglobin (MCH) determinationOrdered By: Melo Madison on 07-29-2024 MCH (RBC) [Entitic mass] 27.0 pg 27.0-32.0 [facility] Mean corpuscular hemoglobin concentration (MCHC) determinationOrdered By: Melo Madison on 07-29-2024 MCHC (RBC) [Mass/Vol] 31.2 g/dL Low 32-36 [facility] Mean platelet volume determi nationOrdered By: Melo Madison on 07-29-2024 Platelet mean volume (Bld) [Entitic vol] 11.2 fL 6.2-12.0 [facility] Monocyte percentageOrdered B y: Melo Madison on 07-29-2024 Monocytes/100 WBC (Bld) 9.8 % 0-10 [facility] Neutrophil percentageOrdered By: Melo Madison on 07-29-2024 Neutrophils/100 WBC (Bld) 64.3 % 47-70 [facility] Nucleated red blood cell per centageOrdered By: Melo Madison on 07-29-2024 Nucleated RBC/100 WBC (Bld) [Ratio] 0 % 0-5 [facility] Platelet countOrdered By: Manuel Madison on 07-29-2024 Platelets (Bld) [#/Vol] 207 10*3/uL 150-450 [facility] RBC Auto (Bld) [#/Vol]Ordere d By: Melo Madison on 07-29-2024 RBC (Bld) [#/Vol] 4.71 10*6/uL 4.6-6.2 [facility] Serum globulin measurementOr dered By: Melo Madison on 07-29-2024 Globulin (S) [Mass/Vol] 3.6 g/dL 2.2-4.2 [facility] Serum or plasma alanine joiner otransferase (ALT) measurementOrdered By: Melo Madison on 07-29-2024 ALT [Catalytic activity/Vol] 27 U/L 16-61 [facility] Serum or plasma albumin wandy urement (mass/volume)Ordered By: Melo Madison on 07-29-2024 Albumin [Mass/Vol] 2.8 g/dL Low 3.2-5.0 [facility] Serum or plasma alkaline radha sphatase measurementOrdered By: Melo Madison on 07-29-2024 ALP [Catalytic activity/Vol] 109 U/L 45-117 [facility] Serum or plasma creatinine m easurement (mass/volume)Ordered By: Melo Madison on 07-29-2024 Creatinine [Mass/Vol] 0.99 mg/dL 0.70-1.30 [facility] Comment on above: The validity of the calculated GFR & GFRAA in patients over 70 years has not been determined. Clinical correlation is essential. Total proteinOrdered By: Lance Madison on 07-29-2024 Protein [Mass/Vol] 6.4 g/dL 6.4-8.2 [facility] White blood cell (WBC) count Ordered By: Melo Madison on 07-29-2024 WBC (Bld) [#/Vol] 8.7 10*3/uL 4.4-11.0 [facility] CNOVon 07-25-2024 CNOV Office Visit (VASSMD ) MITUL OAKES ([id number]) 1955 M Date Time Provider Department 07/25/24 11:10 AM DARI ESPARZA During your visit today, we recorded the following information about you: Pulse Blood pressure 65/minute 132/76 Dari Esparza, 07/25/2024 12:15 PM Signed [facility] [place] DEPARTMENT OF VASCULAR SURGERY OUTPATIENT VISIT DATE July 25, 2024 OUTPATIENT VISIT TYPE ESTABLISHED SERVICE DATE: 07/25/2024 SERVICE TIME: 11:32 AM PRIMARY CARE PHYSICIAN: [facility] HISTORY OF PRESENT ILLNESS: Mr. Oakes is a 68 year old male who presents today for a vascular surgery follow-up visit for peripheral arterial disease. He has a history of angiogram with Dr. Lucas in May for left toe wound He had balloon angioplasty of distal left superficial femoral artery with 5x60mm mustang balloon and 6x80mm DCB (Inpact) at [facility] for SFA occlusion noted on CTA. 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 He continues to follow with [facility]. 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 No past medical history on file. PAST [...] Take 1 tablet by mouth once daily. yqotirmwmt-kdxzzuuj-g ormoterol (BREZTRI) 160-9-4.8 mcg/actuation HFA aerosol inhaler [...] Take 1 tablet by mouth every morning. [place]-3 Fatty Acids-Vitamin E (FISH OIL) 1,000 mg cap Take 1 capsule by mouth. carvedilol (COREG) 25 mg tablet Take 25 mg by mouth twice daily with meals. vitamin D3-vitamin K2, MK4, 1,000-100 unit-mcg tab Take by mouth. ALLERGIES: ALLERGIES Allergen Reactions Heparin Other: See Comments HIIT New pt to [facility] on 05/23/24. Pt states allergy to [...] mild disease at rest (improved [facility]) Arterial Duplex-LEFT SIDE External iliac artery, Common femoral artery, Profunda femoral artery, Popliteal artery and Tibioperoneal trunk : plaque noted without evidence of hemodynamically significant stenosis . Superfic (more content not included)... Normal [facility] Absolute lymphocyte countOrd ered By: Melo Madison on 07-21-2024 Lymphocytes Auto (Unsp spec) [#/Vol] 1.48 10*3/uL 0.83-4.51 [facility] Absolute neutrophil countOrd ered By: Melo Madison on 07-21-2024 Neutrophils (Bld) [#/Vol] 4.5 10*3/uL 2.0-7.7 [facility] Albumin to globulin ratioOrd ered By: Melo Madison on 07-21-2024 Albumin/Globulin [Mass ratio] 0.8 {ratio} Low 0.9-2.4 [facility] Automated lymphocyte count a s percentage of total leukocytesOrdered By: Melo Madison on 07-21-2024 Lymphocytes/100 WBC Auto (Unsp spec) 21.6 % 19-41 [facility] Basophil percentageOrdered B y: Melo Madison on 07-21-2024 Basophils/100 WBC (Bld) 0.9 % 0-1 [facility] Bilirubin, totalOrdered By: Melo Madison on 07-21-2024 Bilirubin [Mass/Vol] 0.40 mg/dL 0.20-1.00 [facility] Comment on above: For patients on eltr ombopag therapy, use of Dimension [place] TBIL is not recommended. Blood urea nitrogen (BUN)/cr eatinine ratioOrdered By: Melo Madison on 07-21-2024 Urea nitrogen/Creatinine [Mass ratio] 9.5 mg/mg Low 10-20 [facility] Carbon dioxide measurementOr dered By: Melo Madison on 07-21-2024 CO2 [Moles/Vol] 26.0 mmol/L 21.0-32.0 [facility] Chloride measurementOrdered By: Melo Madison on 07-21-2024 Chloride [Moles/Vol] 106 mmol/L 98-107 [facility] Eosinophil percentageOrdered By: Melo Madison on 07-21-2024 Eosinophils/100 WBC (Bld) 1.8 % 0-5 [facility] Erythrocyte distribution wid th ratioOrdered By: Melo Madison on 07-21-2024 Erythrocyte distribution width (RBC) [Ratio] 15.3 % High 11.6-14.6 [facility] Erythrocyte distribution wid th standard deviationOrdered By: Melo Madison on 07-21-2024 Erythrocyte distribution width (RBC) [Ratio] 48.6 fl High 35.1-43.9 [facility] Erythrocyte sedimentation ra teOrdered By: Melo Madison on 07-21-2024 ESR (Bld) [Velocity] 12 mm/h 0-20 [facility] Glomerular filtration rate ( GFR) estimationOrdered By: Melo Madison on 07-21-2024 GFR/1.73 sq M.predicted among non-blacks MDRD (S/P/Bld) [Vol rate/Area] 84 mL/min/{1.73_m2} >60 [facility] Comment on above: Non- GFR Calc Glucose measurementOrdered B y: Melo Madison on 07-21-2024 Glucose [Mass/Vol] 174 mg/dL High 74-106 [facility] Comment on above: Fasting Glucose resu lt greater than or equal to 126 mg/dL suggests DIABETES MELLITUS per A.D.A. criteria. Hematocrit Auto (Bld) [Volum e fraction]Ordered By: Melo Madison on 07-21-2024 Hematocrit (Bld) [Volume fraction] 36.9 % Low 40-54 [facility] Hemoglobin measurementOrdere d By: Melo Madison on 07-21-2024 Hemoglobin (Bld) [Mass/Vol] 11.7 g/dL Low 13.0-16.5 [facility] High density lipoprotein (HD L) measurementOrdered By: Melo Madison on 07-21-2024 Cholesterol in HDL [Mass/Vol] 48 mg/dL >40 [facility] Comment on above: The drugs N-Acetylcy steine and Metamizole may falsely depress this assay. Reference Range HDL <40 mg/dL Low HDL Cholesterol HDL >or= 60 mg/dL High HDL Cholesterol Immature granulocytes/100 WB C Auto (Bld)Ordered By: Melo Madison on 07-21-2024 Immature granulocytes/100 WBC (Bld) 0.600 % 0.0-0.9 [facility] Comment on above: IG% - Immature Granu locytes (promyelocytes, myelocytes and metamyelocytes) > 1% indicates that a LEFT SHIFT is Present. International normalized rat io (INR) calculationOrdered By: Melo Madison on 07-21-2024 INR Coag (Bld) [Relative time] 1.1 {INR} [facility] Laboratory - Chemistry and C hemistry - challengeOrdered By: Melo Madison on 07-21-2024 AST [Catalytic activity/Vol] 18 U/L 15-37 [facility] Comment on above: Moderate Hemolysis, Result may be falsely increased. Low density lipoprotein (LDL ) cholesterol measurementOrdered By: Melo Madison on 07-21-2024 Cholesterol in LDL [Mass/Vol] 35 mg/dL 0-130 [facility] MCV (mean corpuscular volume ) determinationOrdered By: Melo Madison on 07-21-2024 MCV (RBC) [Entitic vol] 87.0 fL 80-94 [facility] Mean corpuscular hemoglobin (MCH) determinationOrdered By: Melo Madison on 07-21-2024 MCH (RBC) [Entitic mass] 27.6 pg 27.0-32.0 [facility] Mean corpuscular hemoglobin concentration (MCHC) determinationOrdered By: Melo Madison on 07-21-2024 MCHC (RBC) [Mass/Vol] 31.7 g/dL Low 32-36 [facility] Mean platelet volume determi nationOrdered By: Melo Madison on 07-21-2024 Platelet mean volume (Bld) [Entitic vol] 10.9 fL 6.2-12.0 [facility] Monocyte percentageOrdered B y: Melo Madison on 07-21-2024 Monocytes/100 WBC (Bld) 9.9 % 0-10 [facility] Neutrophil percentageOrdered By: Mleo Madison on 07-21-2024 Neutrophils/100 WBC (Bld) 65.2 % 47-70 [facility] Nucleated red blood cell per centageOrdered By: Melo Madison on 07-21-2024 Nucleated RBC/100 WBC (Bld) [Ratio] 0 % 0-5 [facility] Platelet countOrdered By: Manuel Madison on 07-21-2024 Platelets (Bld) [#/Vol] 232 10*3/uL 150-450 [facility] Potassium measurementOrdered By: Melo Madison on 07-21-2024 Potassium [Moles/Vol] 3.6 mmol/L 3.5-5.1 [facility] Comment on above: Moderate Hemolysis, Result may be falsely increased. Prothrombin timeOrdered By: Melo Madison on 07-21-2024 PT Coag (PPP) [Time] 14.4 s 11.7-14.9 [facility] RBC Auto (Bld) [#/Vol]Ordere d By: Melo Madison on 07-21-2024 RBC (Bld) [#/Vol] 4.24 10*6/uL Low 4.6-6.2 [facility] Serum anion gap measurementO rdered By: Melo Madison on 07-21-2024 Anion gap [Moles/Vol] 11 mmol/L 5-15 [facility] Serum globulin measurementOr dered By: Melo Madison on 07-21-2024 Globulin (S) [Mass/Vol] 3.1 g/dL 2.2-4.2 [facility] Serum or plasma alanine joiner otransferase (ALT) measurementOrdered By: Melo Madison on 07-21-2024 ALT [Catalytic activity/Vol] 23 U/L 16-61 [facility] Serum or plasma albumin wandy urement (mass/volume)Ordered By: Melo Madison on 07-21-2024 Albumin [Mass/Vol] 2.6 g/dL Low 3.2-5.0 [facility] Serum or plasma alkaline radha sphatase measurementOrdered By: Melo Madison on 07-21-2024 ALP [Catalytic activity/Vol] 97 U/L 45-117 [facility] Serum or plasma calcium wandy urement (mass/volume)Ordered By: Melo Madison on 07-21-2024 Calcium [Mass/Vol] 8.2 mg/dL Low 8.5-10.1 [facility] Serum or plasma cholesterol measurement (mass/volume)Ordered By: Melo Madison on 07-21-2024 Cholesterol [Mass/Vol] 122 mg/dL <200 [facility] Comment on above: <200 mg/dL Desirable 200-240 mg/dL Borderline >240 mg/dL High Risk Serum or plasma creatinine m easurement (mass/volume)Ordered By: Melo Madison on 07-21-2024 Creatinine [Mass/Vol] 0.95 mg/dL 0.70-1.30 [facility] Comment on above: The validity of the calculated GFR & GFRAA in patients over 70 years has not been determined. Clinical correlation is essential. Serum or plasma trough vanco mycin levelOrdered By: Melo Madison on 07-21-2024 Vancomycin trough [Mass/Vol] ug/mL Low 5.0-15.0 [facility] Comment on above: VANCOMYCIN STANDARED DRUG THERAPY TROUGH LEVEL: 5.0 - 15.0 mg/L VANCOMYCIN HIGH INTENSITY THERAPY TROUGH LEVEL: 15.0 - 20.0 mg/L High Intensity therapy recommended for serious lifethreatening infections include:- Mdjcwzertm-Hzyxxhgncodz-Gwdqmtpsv (Ventilator/Healtcare Associated)-Sepsis PLEASE CONTACT PHARMACY SERVICES (#7461) FOR INTERPRETATIONOF RESULTS. Serum or plasma urea nitroge n measurement (mass/volume)Ordered By: Melo Madison on 07-21-2024 Urea nitrogen [Mass/Vol] 9 mg/dL 7-18 [facility] Sodium levelOrdered By: Hugo Madison on 07-21-2024 Sodium [Moles/Vol] 142 mmol/L 136-145 [facility] Total proteinOrdered By: Lance Madison on 07-21-2024 Protein [Mass/Vol] 5.7 g/dL Low 6.4-8.2 [facility] Triglycerides measurementOrd ered By: Melo Madison on 07-21-2024 Triglyceride [Mass/Vol] 197 mg/dL <199 [facility] Comment on above: The drugs N-Acetylcy steine and Metamizole may falsely depress this assay.Serum Triglycerides Reference Interval Normal <150 mg/dL Borderline high 150 - 199 mg/dL High 200 - 499 mg/dL Very High > or = 500 mg/dL Very low density lipoprotein (VLDL) cholesterol measurementOrdered By: Melo Madison on 07-21-2024 Very low density lipoprotein (VLDL) cholesterol measurement 39 mg/dL 5-40 [facility] White blood cell (WBC) count Ordered By: Melo Madison on 07-21-2024 WBC (Bld) [#/Vol] 6.9 10*3/uL 4.4-11.0 [facility] CNOVon 07-15-2024 CNOV Normal [facility] Erythrocyte distribution wid th ratioOrdered By: Melo Madison on 07-15-2024 Erythrocyte distribution width (RBC) [Ratio] 15.1 % High 11.6-14.6 [facility] Erythrocyte distribution wid th standard deviationOrdered By: Melo Madison on 07-15-2024 Erythrocyte distribution width (RBC) [Ratio] 47.7 fl High 35.1-43.9 [facility] Hematocrit Auto (Bld) [Volum e fraction]Ordered By: Melo Madison on 07-15-2024 Hematocrit (Bld) [Volume fraction] 35.9 % Low 40-54 [facility] Hemoglobin measurementOrdere d By: Melo Madison on 07-15-2024 Hemoglobin (Bld) [Mass/Vol] 11.2 g/dL Low 13.0-16.5 [facility] International normalized rat io (INR) calculationOrdered By: Melo Madison on 07-15-2024 INR Coag (Bld) [Relative time] 1.2 {INR} [facility] MCV (mean corpuscular volume ) determinationOrdered By: Melo Madison on 07-15-2024 MCV (RBC) [Entitic vol] 86.3 fL 80-94 [facility] Mean corpuscular hemoglobin (MCH) determinationOrdered By: Melo Madison on 07-15-2024 MCH (RBC) [Entitic mass] 26.9 pg Low 27.0-32.0 [facility] Mean corpuscular hemoglobin concentration (MCHC) determinationOrdered By: Melo Madison on 07-15-2024 MCHC (RBC) [Mass/Vol] 31.2 g/dL Low 32-36 [facility] Mean platelet volume determi nationOrdered By: Melo Madison on 07-15-2024 Platelet mean volume (Bld) [Entitic vol] 11.0 fL 6.2-12.0 [facility] PVR ANK PRESS GRACIELA VAS LABon 07-15-2024 PVR ANK PRESS GRACIELA VAS LAB Non-Invasive Vascular Laboratory [facility] Lower Extremity Arterial Physiology [...] JACKELYN: 0.82 Ankle posterior tibial: 121 mmHg JACEKLYN: 0.79 Left PVR Waveforms Ankle: Mildly dampened. IMPRESSION RIGHT SIDE Resting right ankle brachial index: Below knee amputation. LEFT SIDE Resting left ankle brachial index: 0.82 Abnormal ankle brachial index at rest diagnostic of peripheral artery disease. Left ankle: Mild disease at rest. Technologist: Silva White RVTommy Ordering physician: MARSHA LUCAS Interpreting physician: Yosef Ortega MD Final CC [employer] [facility] : [id number] amicsSISUID See Link below for Image Normal [facility] Platelet countOrdered By: Manuel Madison on 07-15-2024 Platelets (Bld) [#/Vol] 219 10*3/uL 150-450 [facility] Prothrombin timeOrdered By: Melo Madison on 07-15-2024 PT Coag (PPP) [Time] 14.9 s 11.7-14.9 [facility] RBC Auto (Bld) [#/Vol]Ordere d By: Melo Madison on 07-15-2024 RBC (Bld) [#/Vol] 4.16 10*6/uL Low 4.6-6.2 [facility] LEG ARTERIAL PERIPH UNL V LABon 07-15-2024 LEG ARTERIAL PERIPH UNL VAS LAB Non-Invasive Vascular Laboratory [facility] Lower Extremity Arterial Duplex [...] Interpreting physician: Yosef Ortega MD Final CC [employer] [facility] : [id number] amicsSISUID See Link below for Image Normal [facility] White blood cell (WBC) count Ordered By: Melo Madison on 07-15-2024 WBC (Bld) [#/Vol] 8.1 10*3/uL 4.4-11.0 [facility] Albumin to globulin ratioOrd ered By: Melo Madison on 07-14-2024 Albumin/Globulin [Mass ratio] 0.6 {ratio} Low 0.9-2.4 [facility] Bilirubin directOrdered By: Melo Madison on 07-14-2024 Bilirubin.direct [Mass/Vol] 0.07 mg/dL 0.00-0.30 [facility] Bilirubin, totalOrdered By: Melo Madison on 07-14-2024 Bilirubin [Mass/Vol] 0.60 mg/dL 0.20-1.00 [facility] Comment on above: For patients on eltr ombopag therapy, use of Dimension [place] TBIL is not recommended. Blood urea nitrogen (BUN)/cr eatinine ratioOrdered By: Melo Madison on 07-14-2024 Urea nitrogen/Creatinine [Mass ratio] 7.0 mg/mg Low 10-20 [facility] C-reactive protein measureme nt by high sensitivity methodOrdered By: Melo Madison on 07-14-2024 C-reactive protein measurement by high sensitivity method 5.52 mg/L High 0.0-3.0 [facility] Comment on above: C-Reactive Protein ( CRP) provides useful information for thediagnosis, therapy and monitoring of inflammatory processesand associated diseases. For the evaluation of Relative Riskfor Cardiovascular Disease, a High Sensitivity CRP (HSCRP)should be ordered. Carbon dioxide measurementOr dered By: Melo Madison on 07-14-2024 CO2 [Moles/Vol] 29.0 mmol/L 21.0-32.0 [facility] Chloride measurementOrdered By: Melo Madison on 07-14-2024 Chloride [Moles/Vol] 108 mmol/L High 98-107 [facility] Glomerular filtration rate ( GFR) estimationOrdered By: Melo Madison on 07-14-2024 GFR/1.73 sq M.predicted among non-blacks MDRD (S/P/Bld) [Vol rate/Area] 79 mL/min/{1.73_m2} >60 [facility] Comment on above: Non- GFR Calc Glucose measurementOrdered B y: Melo Madison on 07-14-2024 Glucose [Mass/Vol] 120 mg/dL High 74-106 [facility] Comment on above: Fasting Glucose resu lt from 100 to 125 mg/dL suggests IMPAIRED HOMEOSTASIS per A.D.A. criteria. High density lipoprotein (HD L) measurementOrdered By: Melo Madison on 07-14-2024 Cholesterol in HDL [Mass/Vol] 45 mg/dL >40 [facility] Comment on above: The drugs N-Acetylcy steine and Metamizole may falsely depress this assay. Reference Range HDL <40 mg/dL Low HDL Cholesterol HDL >or= 60 mg/dL High HDL Cholesterol Laboratory - Chemistry and C hemistry - challengeOrdered By: Melo Madison on 07-14-2024 AST [Catalytic activity/Vol] 24 U/L 15-37 [facility] Comment on above: Slight Hemolysis, Re sult may be falsely increased. Low density lipoprotein (LDL ) cholesterol measurementOrdered By: Melo Madison on 07-14-2024 Cholesterol in LDL [Mass/Vol] 22 mg/dL 0-130 [facility] Potassium measurementOrdered By: Melo Madison on 07-14-2024 Potassium [Moles/Vol] 2.9 mmol/L Low 3.5-5.1 [facility] Comment on above: Slight Hemolysis, Re sult may be falsely increased. Serum anion gap measurementO rdered By: Melo Madison on 07-14-2024 Anion gap [Moles/Vol] 5 mmol/L 5-15 [facility] Serum globulin measurementOr dered By: Melo Madison on 07-14-2024 Globulin (S) [Mass/Vol] 3.7 g/dL 2.2-4.2 [facility] Serum or plasma alanine joiner otransferase (ALT) measurementOrdered By: Melo Madison on 07-14-2024 ALT [Catalytic activity/Vol] 20 U/L 16-61 [facility] Serum or plasma albumin wandy urement (mass/volume)Ordered By: Melo Madison on 07-14-2024 Albumin [Mass/Vol] 2.4 g/dL Low 3.2-5.0 [facility] Serum or plasma alkaline radha sphatase measurementOrdered By: Melo Madison on 07-14-2024 ALP [Catalytic activity/Vol] 108 U/L 45-117 [facility] Serum or plasma calcium wandy urement (mass/volume)Ordered By: Melo Madison on 07-14-2024 Calcium [Mass/Vol] 8.2 mg/dL Low 8.5-10.1 [facility] Serum or plasma cholesterol measurement (mass/volume)Ordered By: Melo Madison on 07-14-2024 Cholesterol [Mass/Vol] 111 mg/dL <200 [facility] Comment on above: <200 mg/dL Desirable 200-240 mg/dL Borderline >240 mg/dL High Risk Serum or plasma creatinine m easurement (mass/volume)Ordered By: Melo Madison on 07-14-2024 Creatinine [Mass/Vol] 1.00 mg/dL 0.70-1.30 [facility] Comment on above: The validity of the calculated GFR & GFRAA in patients over 70 years has not been determined. Clinical correlation is essential. Serum or plasma trough vanco mycin levelOrdered By: Melo Madison on 07-14-2024 Vancomycin trough [Mass/Vol] ug/mL Low 5.0-15.0 [facility] Comment on above: VANCOMYCIN STANDARED DRUG THERAPY TROUGH LEVEL: 5.0 - 15.0 mg/L VANCOMYCIN HIGH INTENSITY THERAPY TROUGH LEVEL: 15.0 - 20.0 mg/L High Intensity therapy recommended for serious lifethreatening infections include:- Xfgweexlwi-Sqztaxbzeitb-Ohmbryhom (Ventilator/Healtcare Associated)-Sepsis PLEASE CONTACT PHARMACY SERVICES (#8821) FOR INTERPRETATIONOF RESULTS. Serum or plasma urea nitroge n measurement (mass/volume)Ordered By: Melo Madison on 07-14-2024 Urea nitrogen [Mass/Vol] 7 mg/dL 7-18 [facility] Sodium levelOrdered By: Hugo Madison on 07-14-2024 Sodium [Moles/Vol] 142 mmol/L 136-145 [facility] Total proteinOrdered By: Lance Madison on 07-14-2024 Protein [Mass/Vol] 6.1 g/dL Low 6.4-8.2 [facility] Triglycerides measurementOrd ered By: Melo Madison on 07-14-2024 Triglyceride [Mass/Vol] 219 mg/dL High <199 [facility] Comment on above: The drugs N-Acetylcy steine and Metamizole may falsely depress this assay.Serum Triglycerides Reference Interval Normal <150 mg/dL Borderline high 150 - 199 mg/dL High 200 - 499 mg/dL Very High > or = 500 mg/dL Very low density lipoprotein (VLDL) cholesterol measurementOrdered By: Melo Madison on 07-14-2024 Very low density lipoprotein (VLDL) cholesterol measurement 44 mg/dL High 5-40 [facility] Blood urea nitrogen (BUN)/cr eatinine ratioOrdered By: Melo Madison on 07-11-2024 Urea nitrogen/Creatinine [Mass ratio] 7.9 mg/mg Low 10-20 [facility] CNPNon 07-11-2024 CNPN [facility] Carbon dioxide measurementOr dered By: Melo Madison on 07-11-2024 CO2 [Moles/Vol] 31.0 mmol/L 21.0-32.0 [facility] Chloride measurementOrdered By: Melo Madison on 07-11-2024 Chloride [Moles/Vol] 101 mmol/L 98-107 [facility] Erythrocyte distribution wid th ratioOrdered By: Melo Madison on 07-11-2024 Erythrocyte distribution width (RBC) [Ratio] 15.2 % High 11.6-14.6 [facility] Erythrocyte distribution wid th standard deviationOrdered By: Melo Madison on 07-11-2024 Erythrocyte distribution width (RBC) [Ratio] 46.6 fl High 35.1-43.9 [facility] Glomerular filtration rate ( GFR) estimationOrdered By: Melo Madison on 07-11-2024 GFR/1.73 sq M.predicted among non-blacks MDRD (S/P/Bld) [Vol rate/Area] 78 mL/min/{1.73_m2} >60 [facility] Comment on above: Non- GFR Calc Glucose measurementOrdered B y: Melo Madison on 07-11-2024 Glucose [Mass/Vol] 109 mg/dL High 74-106 [facility] Comment on above: Fasting Glucose resu lt from 100 to 125 mg/dL suggests IMPAIRED HOMEOSTASIS per A.D.A. criteria. Hematocrit Auto (Bld) [Volum e fraction]Ordered By: Melo Madison on 07-11-2024 Hematocrit (Bld) [Volume fraction] 38.2 % Low 40-54 [facility] Hemoglobin measurementOrdere d By: Melo Madison on 07-11-2024 Hemoglobin (Bld) [Mass/Vol] 12.2 g/dL Low 13.0-16.5 [facility] MCV (mean corpuscular volume ) determinationOrdered By: Melo Madison on 07-11-2024 MCV (RBC) [Entitic vol] 84.9 fL 80-94 [facility] Mean corpuscular hemoglobin (MCH) determinationOrdered By: Melo Madison on 07-11-2024 MCH (RBC) [Entitic mass] 27.1 pg 27.0-32.0 [facility] Mean corpuscular hemoglobin concentration (MCHC) determinationOrdered By: Melo Madison on 07-11-2024 MCHC (RBC) [Mass/Vol] 31.9 g/dL Low 32-36 [facility] Mean platelet volume determi nationOrdered By: Melo Madison on 07-11-2024 Platelet mean volume (Bld) [Entitic vol] 10.8 fL 6.2-12.0 [facility] Platelet countOrdered By: Manuel Madison on 07-11-2024 Platelets (Bld) [#/Vol] 201 10*3/uL 150-450 [facility] Potassium measurementOrdered By: Melo Madison on 07-11-2024 Potassium [Moles/Vol] 2.8 mmol/L Low 3.5-5.1 [facility] RBC Auto (Bld) [#/Vol]Ordere d By: Melo Madison on 07-11-2024 RBC (Bld) [#/Vol] 4.50 10*6/uL Low 4.6-6.2 [facility] Serum anion gap measurementO rdered By: Melo Madison on 07-11-2024 Anion gap [Moles/Vol] 8 mmol/L 5-15 [facility] Serum or plasma calcium wandy urement (mass/volume)Ordered By: Melo Madison on 07-11-2024 Calcium [Mass/Vol] 9.2 mg/dL 8.5-10.1 [facility] Serum or plasma creatinine m easurement (mass/volume)Ordered By: Melo Madison on 07-11-2024 Creatinine [Mass/Vol] 1.01 mg/dL 0.70-1.30 [facility] Comment on above: The validity of the calculated GFR & GFRAA in patients over 70 years has not been determined. Clinical correlation is essential. Serum or plasma urea nitroge n measurement (mass/volume)Ordered By: Melo Madison on 07-11-2024 Urea nitrogen [Mass/Vol] 8 mg/dL 7-18 [facility] Sodium levelOrdered By: Hugo Madison on 07-11-2024 Sodium [Moles/Vol] 141 mmol/L 136-145 [facility] White blood cell (WBC) count Ordered By: Melo Madison on 07-11-2024 WBC (Bld) [#/Vol] 7.0 10*3/uL 4.4-11.0 [facility] CNOVon 07-10-2024 CNOV Normal [facility] Absolute lymphocyte countOrd ered By: Melo Madison on 07-07-2024 Lymphocytes Auto (Unsp spec) [#/Vol] 1.92 10*3/uL 0.83-4.51 [facility] Absolute neutrophil countOrd ered By: Melo Madison on 07-07-2024 Neutrophils (Bld) [#/Vol] 4.8 10*3/uL 2.0-7.7 [facility] Albumin to globulin ratioOrd ered By: Melo Madison on 07-07-2024 Albumin/Globulin [Mass ratio] 0.7 {ratio} Low 0.9-2.4 [facility] Automated lymphocyte count a s percentage of total leukocytesOrdered By: Melo Madison on 07-07-2024 Lymphocytes/100 WBC Auto (Unsp spec) 24.6 % 19-41 [facility] Basophil percentageOrdered B y: Melo Madison on 07-07-2024 Basophils/100 WBC (Bld) 0.8 % 0-1 [facility] Bilirubin directOrdered By: Melo Madison on 07-07-2024 Bilirubin.direct [Mass/Vol] 0.08 mg/dL 0.00-0.30 [facility] Bilirubin, totalOrdered By: Melo Madison on 07-07-2024 Bilirubin [Mass/Vol] 0.20 mg/dL 0.20-1.00 [facility] Comment on above: For patients on eltr ombopag therapy, use of Dimension [place] TBIL is not recommended. Blood urea nitrogen (BUN)/cr eatinine ratioOrdered By: Melo Madison on 07-07-2024 Urea nitrogen/Creatinine [Mass ratio] 10.6 mg/mg - [facility] C-reactive protein measureme nt by high sensitivity methodOrdered By: Melo Madison on 07-07-2024 C-reactive protein measurement by high sensitivity method 10.40 mg/L High 0.0-3.0 [facility] Comment on above: C-Reactive Protein ( CRP) provides useful information for thediagnosis, therapy and monitoring of inflammatory processesand associated diseases. For the evaluation of Relative Riskfor Cardiovascular Disease, a High Sensitivity CRP (HSCRP)should be ordered. Carbon dioxide measurementOr dered By: Melo Madison on 07-07-2024 CO2 [Moles/Vol] 29.0 mmol/L 21.0-32.0 [facility] Chloride measurementOrdered By: Melo Madison on 07-07-2024 Chloride [Moles/Vol] 104 mmol/L 98-107 [facility] Eosinophil percentageOrdered By: Melo Madison on 07-07-2024 Eosinophils/100 WBC (Bld) 2.3 % 0-5 [facility] Erythrocyte distribution wid th ratioOrdered By: Melo Madison on 07-07-2024 Erythrocyte distribution width (RBC) [Ratio] 15.1 % High 11.6-14.6 [facility] Erythrocyte distribution wid th standard deviationOrdered By: Melo Madison on 07-07-2024 Erythrocyte distribution width (RBC) [Ratio] 47.1 fl High 35.1-43.9 [facility] Erythrocyte sedimentation ra teOrdered By: Melo Madison on 07-07-2024 ESR (Bld) [Velocity] 23 mm/h High 0-20 [facility] Glomerular filtration rate ( GFR) estimationOrdered By: Melo Madison on 07-07-2024 GFR/1.73 sq M.predicted among non-blacks MDRD (S/P/Bld) [Vol rate/Area] 76 mL/min/{1.73_m2} >60 [facility] Comment on above: Non- GFR Calc Glucose measurementOrdered B y: Melo Madison on 07-07-2024 Glucose [Mass/Vol] 118 mg/dL High 74-106 [facility] Comment on above: Fasting Glucose resu lt from 100 to 125 mg/dL suggests IMPAIRED HOMEOSTASIS per A.D.A. criteria. Hematocrit Auto (Bld) [Volum e fraction]Ordered By: Melo Madison on 07-07-2024 Hematocrit (Bld) [Volume fraction] 37.1 % Low 40-54 [facility] Hemoglobin measurementOrdere d By: Melo Madison on 07-07-2024 Hemoglobin (Bld) [Mass/Vol] 11.8 g/dL Low 13.0-16.5 [facility] High density lipoprotein (HD L) measurementOrdered By: Melo Madison on 07-07-2024 Cholesterol in HDL [Mass/Vol] 38 mg/dL Low >40 [facility] Comment on above: The drugs N-Acetylcy steine and Metamizole may falsely depress this assay. Reference Range HDL <40 mg/dL Low HDL Cholesterol HDL >or= 60 mg/dL High HDL Cholesterol Immature granulocytes/100 WB C Auto (Bld)Ordered By: Melo Madison on 07-07-2024 Immature granulocytes/100 WBC (Bld) 0.500 % 0.0-0.9 [facility] Comment on above: IG% - Immature Granu locytes (promyelocytes, myelocytes and metamyelocytes) > 1% indicates that a LEFT SHIFT is Present. International normalized rat io (INR) calculationOrdered By: Melo Madison on 07-07-2024 INR Coag (Bld) [Relative time] 1.2 {INR} [facility] Laboratory - Chemistry and C hemistry - challengeOrdered By: Melo Madison on 07-07-2024 AST [Catalytic activity/Vol] 18 U/L 15-37 [facility] Low density lipoprotein (LDL ) cholesterol measurementOrdered By: Melo Madison on 07-07-2024 Cholesterol in LDL [Mass/Vol] 40 mg/dL 0-130 [facility] MCV (mean corpuscular volume ) determinationOrdered By: Melo Madison on 07-07-2024 MCV (RBC) [Entitic vol] 85.3 fL 80-94 [facility] Mean corpuscular hemoglobin (MCH) determinationOrdered By: Melo Madison on 07-07-2024 MCH (RBC) [Entitic mass] 27.1 pg 27.0-32.0 [facility] Mean corpuscular hemoglobin concentration (MCHC) determinationOrdered By: Melo Madison on 07-07-2024 MCHC (RBC) [Mass/Vol] 31.8 g/dL Low 32-36 [facility] Mean platelet volume determi nationOrdered By: Melo Madison on 07-07-2024 Platelet mean volume (Bld) [Entitic vol] 10.8 fL 6.2-12.0 [facility] Monocyte percentageOrdered B y: Melo Madison on 07-07-2024 Monocytes/100 WBC (Bld) 10.2 % High 0-10 [facility] Neutrophil percentageOrdered By: Melo Madison on 07-07-2024 Neutrophils/100 WBC (Bld) 61.6 % 47-70 [facility] Nucleated red blood cell per centageOrdered By: Melo Madison on 07-07-2024 Nucleated RBC/100 WBC (Bld) [Ratio] 0 % 0-5 [facility] Platelet countOrdered By: Manuel Madison on 07-07-2024 Platelets (Bld) [#/Vol] 211 10*3/uL 150-450 [facility] Potassium measurementOrdered By: Melo Madison on 07-07-2024 Potassium [Moles/Vol] 3.0 mmol/L Low 3.5-5.1 [facility] Prothrombin timeOrdered By: Melo Madison on 07-07-2024 PT Coag (PPP) [Time] 15.2 s High 11.7-14.9 [facility] RBC Auto (Bld) [#/Vol]Ordere d By: Melo Madison on 07-07-2024 RBC (Bld) [#/Vol] 4.35 10*6/uL Low 4.6-6.2 [facility] Serum anion gap measurementO rdered By: Melo Madison on 07-07-2024 Anion gap [Moles/Vol] 7 mmol/L 5-15 [facility] Serum globulin measurementOr dered By: Melo Madison on 07-07-2024 Globulin (S) [Mass/Vol] 3.9 g/dL 2.2-4.2 [facility] Serum or plasma alanine joiner otransferase (ALT) measurementOrdered By: Melo Madison on 07-07-2024 ALT [Catalytic activity/Vol] 24 U/L 16-61 [facility] Serum or plasma albumin wandy urement (mass/volume)Ordered By: Melo Madison on 07-07-2024 Albumin [Mass/Vol] 2.7 g/dL Low 3.2-5.0 [facility] Serum or plasma alkaline radha sphatase measurementOrdered By: Melo Madison on 07-07-2024 ALP [Catalytic activity/Vol] 115 U/L 45-117 [facility] Serum or plasma calcium wandy urement (mass/volume)Ordered By: Melo Madison on 07-07-2024 Calcium [Mass/Vol] 9.0 mg/dL 8.5-10.1 [facility] Serum or plasma cholesterol measurement (mass/volume)Ordered By: Melo Madison on 07-07-2024 Cholesterol [Mass/Vol] 129 mg/dL <200 [facility] Comment on above: <200 mg/dL Desirable 200-240 mg/dL Borderline >240 mg/dL High Risk Serum or plasma creatinine m easurement (mass/volume)Ordered By: Melo Madison on 07-07-2024 Creatinine [Mass/Vol] 1.04 mg/dL 0.70-1.30 [facility] Comment on above: The validity of the calculated GFR & GFRAA in patients over 70 years has not been determined. Clinical correlation is essential. Serum or plasma trough vanco mycin levelOrdered By: Melo Madison on 07-07-2024 Vancomycin trough [Mass/Vol] ug/mL Low 5.0-15.0 [facility] Comment on above: VANCOMYCIN STANDARED DRUG THERAPY TROUGH LEVEL: 5.0 - 15.0 mg/L VANCOMYCIN HIGH INTENSITY THERAPY TROUGH LEVEL: 15.0 - 20.0 mg/L High Intensity therapy recommended for serious lifethreatening infections include:- Fcdepkeesn-Sxkyujcwqioy-Evigoufgr (Ventilator/Healtcare Associated)-Sepsis PLEASE CONTACT PHARMACY SERVICES (#3660) FOR INTERPRETATIONOF RESULTS. Serum or plasma urea nitroge n measurement (mass/volume)Ordered By: Melo Madison on 07-07-2024 Urea nitrogen [Mass/Vol] 11 mg/dL 7-18 [facility] Sodium levelOrdered By: Hugo Madison on 07-07-2024 Sodium [Moles/Vol] 140 mmol/L 136-145 [facility] Total proteinOrdered By: Lance Madison on 07-07-2024 Protein [Mass/Vol] 6.6 g/dL 6.4-8.2 [facility] Triglycerides measurementOrd ered By: Melo Madison on 07-07-2024 Triglyceride [Mass/Vol] 256 mg/dL High <199 [facility] Comment on above: The drugs N-Acetylcy steine and Metamizole may falsely depress this assay.Serum Triglycerides Reference Interval Normal <150 mg/dL Borderline high 150 - 199 mg/dL High 200 - 499 mg/dL Very High > or = 500 mg/dL Very low density lipoprotein (VLDL) cholesterol measurementOrdered By: Melo Madison on 07-07-2024 Very low density lipoprotein (VLDL) cholesterol measurement 51 mg/dL High 5-40 [facility] White blood cell (WBC) count Ordered By: Melo Madison on 07-07-2024 WBC (Bld) [#/Vol] 7.8 10*3/uL 4.4-11.0 [facility] CBC W Auto Differential pane l (Bld)on 07-02-2024 Basophils (Bld) [#/Vol] 0.10 10*3/uL Normal <0.11 [facility] Comment on above: Order Comment: Speci men Type: BLOOD SPECIMENOrdering Facility: [facility] Address: [address] [place] [address] Performed By: #### 5 7021-8 ####LERNER LABORATORYCLIA [id number] [place] [address] [place] Basophils/100 WBC (Bld) 1.1 % Normal [facility] Comment on above: Order Comment: Speci men Type: BLOOD SPECIMENOrdering Facility: [facility] Address: [address] [place] [address] Performed By: #### 5 7021-8 ####LERNER LABORATORYCLIA [id number] [place] [address] [place] Differential cell count method Nom (Bld) Auto Normal [facility] Comment on above: Order Comment: Speci men Type: BLOOD SPECIMENOrdering Facility: [facility] Address: [address] [place] [address] Performed By: #### 5 7021-8 ####LERNER LABORATORYCLIA [id number] [place] [address] [place] Eosinophils (Bld) [#/Vol] 0.18 10*3/uL Normal <0.46 [facility] Comment on above: Order Comment: Speci men Type: BLOOD SPECIMENOrdering Facility: [facility] Address: [address] [place] [address] Performed By: #### 5 7021-8 ####LERNER LABORATORYCLIA [id number] [place] [address] [place] Eosinophils/100 WBC (Bld) 1.9 % Normal [facility] Comment on above: Order Comment: Speci men Type: BLOOD SPECIMENOrdering Facility: [facility] Address: [address] [place] [address] Performed By: #### 5 7021-8 ####LERNER LABORATORYCLIA [id number] [place] [address] [place] Erythrocyte distribution width (RBC) [Ratio] 15.5 % High 11.5-15.0 [facility] Comment on above: Order Comment: Speci men Type: BLOOD SPECIMENOrdering Facility: [facility] Address: [address] [place] [address] Performed By: #### 5 7021-8 ####LERNER LABORATORYCLIA [id number] [place] [address] [place] Hematocrit (Bld) [Volume fraction] 43.2 % Normal 39.0-51.0 [facility] Comment on above: Order Comment: Speci men Type: BLOOD SPECIMENOrdering Facility: [facility] Address: [address] [place] [address] Performed By: #### 5 7021-8 ####LERNER LABORATORYCLIA [id number] [place] [address] [place] Hemoglobin (Bld) [Mass/Vol] 13.9 g/dL Normal 13.0-17.0 [facility] Comment on above: Order Comment: Speci men Type: BLOOD SPECIMENOrdering Facility: [facility] Address: [address] [place] [address] Performed By: #### 5 7021-8 ####LERNER LABORATORYCLIA [id number] [place] [address] [place] Immature granulocytes (Bld) [#/Vol] 0.07 10*3/uL Normal <0.10 [facility] Comment on above: Order Comment: Speci men Type: BLOOD SPECIMENOrdering Facility: [facility] Address: [address] [place] [address] Performed By: #### 5 7021-8 ####LERNER LABORATORYCLIA [id number] [place] [address] [place] Immature granulocytes/100 WBC (Bld) 0.7 % Normal [facility] Comment on above: Order Comment: Speci men Type: BLOOD SPECIMENOrdering Facility: [facility] Address: [address] [place] [address] Performed By: #### 5 7021-8 ####LERNER LABORATORYCLIA [id number] [address] Lymphocytes (Bld) [#/Vol] 1.86 10*3/uL Normal 1.00-4.00 [facility] Comment on above: Order Comment: Speci men Type: BLOOD SPECIMENOrdering Facility: [facility] Address: [address] [place] [address] Performed By: #### 5 7021-8 ####LERNER LABORATORYCLIA [id number] [address] Lymphocytes/100 WBC (Bld) 19.7 % Normal [facility] Comment on above: Order Comment: Speci men Type: BLOOD SPECIMENOrdering Facility: [facility] Address: [address] [place] [address] Performed By: #### 5 7021-8 ####LERNER LABORATORYCLIA [id number] [address] MCH (RBC) [Entitic mass] 27.7 pg Normal 26.0-34.0 [facility] Comment on above: Order Comment: Speci men Type: BLOOD SPECIMENOrdering Facility: [facility] Address: [address] [place] [address] Performed By: #### 5 7021-8 ####LERNER LABORATORYCLIA [id number] [address] MCHC (RBC) [Mass/Vol] 32.2 g/dL Normal 30.5-36.0 [facility] Comment on above: Order Comment: Speci men Type: BLOOD SPECIMENOrdering Facility: [facility] Address: [address] [place] [address] Performed By: #### 5 7021-8 ####LERNER LABORATORYCLIA [id number] [address] MCV (RBC) [Entitic vol] 86.2 fL Normal 80.0-100.0 [facility] Comment on above: Order Comment: Speci men Type: BLOOD SPECIMENOrdering Facility: [facility] Address: [address] [place] [address] Performed By: #### 5 7021-8 ####LERNER LABORATORYCLIA [id number] [place] [address] [place] Monocytes (Bld) [#/Vol] 0.83 10*3/uL Normal <0.87 [facility] Comment on above: Order Comment: Speci men Type: BLOOD SPECIMENOrdering Facility: [facility] Address: [address] [place] [address] Performed By: #### 5 7021-8 ####LERNER LABORATORYCLIA [id number] [address] [place] Monocytes/100 WBC (Bld) 8.8 % Normal [facility] Comment on above: Order Comment: Speci men Type: BLOOD SPECIMENOrdering Facility: [facility] Address: [address] [place] [address] Performed By: #### 5 7021-8 ####LERNER LABORATORYCLIA [id number] [place] [address] [place] Neutrophils (Bld) [#/Vol] 6.41 10*3/uL Normal 1.45-7.50 [facility] Comment on above: Order Comment: Speci men Type: BLOOD SPECIMENOrdering Facility: [facility] Address: [address] [place] [address] Performed By: #### 5 7021-8 ####LERNER LABORATORYCLIA [id number] [place] [address] [place] Neutrophils/100 WBC (Bld) 67.8 % Normal [facility] Comment on above: Order Comment: Speci men Type: BLOOD SPECIMENOrdering Facility: [facility] Address: [address] [place] [address] Performed By: #### 5 7021-8 ####LERNER LABORATORYCLIA [id number] [place] [address] [place] Nucleated RBC (Bld) [#/Vol] 10*3/uL Normal <0.01 [facility] Comment on above: Order Comment: Speci men Type: BLOOD SPECIMENOrdering Facility: [facility] Address: [address] [place] [address] Performed By: #### 5 7021-8 ####LERNER LABORATORYCLIA [id number] [place] [address] [place] Nucleated RBC/100 WBC (Bld) [Ratio] 0.0 /100 WBC Normal [facility] Comment on above: Order Comment: Speci men Type: BLOOD SPECIMENOrdering Facility: [facility] Address: [address] [place] [address] Performed By: #### 5 7021-8 ####LERNER LABORATORYCLIA [id number] [place] [address] [place] Platelet mean volume (Bld) [Entitic vol] 10.3 fL Normal 9.0-12.7 [facility] Comment on above: Order Comment: Speci men Type: BLOOD SPECIMENOrdering Facility: [facility] Address: [address] [place] [address] Performed By: #### 5 7021-8 ####LERNER LABORATORYCLIA [id number] [place] [address] [place] Platelets (Bld) [#/Vol] 198 10*3/uL Normal 150-400 [facility] Comment on above: Order Comment: Speci men Type: BLOOD SPECIMENOrdering Facility: [facility] Address: [address] [place] [address] Performed By: #### 5 7021-8 ####LERNER LABORATORYCLIA [id number] [place] [address] [place] RBC (Bld) [#/Vol] 5.01 10*6/uL Normal 4.20-6.00 [facility] Comment on above: Order Comment: Speci men Type: BLOOD SPECIMENOrdering Facility: [facility] Address: [address] [place] [address] Performed By: #### 5 7021-8 ####LERNER LABORATORYCLIA [id number] [place] [address] [place] WBC (Bld) [#/Vol] 9.45 10*3/uL Normal 3.70-11.00 [facility] Comment on above: Order Comment: Speci men Type: BLOOD SPECIMENOrdering Facility: [facility] Address: [address] [place] [address] [place] [address] Performed By: #### 5 7021-8 ####LERNER LABORATORYCLIA [id number] [place], [place] [address] [place] [address] Comprehensive metabolic 2000 panelon 07-02-2024 Albumin [Mass/Vol] 4.0 g/dL Normal 3.9-4.9 [facility] Comment on above: Order Comment: Speci men Type: BLOOD SPECIMENOrdering Facility: [facility] Address: [address] [place] [address] Performed By: #### 2 4323-8 ####LERNER LABORATORYCLIA [id number] [address] [place] ALP [Catalytic activity/Vol] 146 U/L High 38-113 [facility] Comment on above: Order Comment: Speci men Type: BLOOD SPECIMENOrdering Facility: [facility] Address: [address] [place] [address] Performed By: #### 2 4323-8 ####LERNER LABORATORYCLIA [id number] [address] ALT [Catalytic activity/Vol] 26 U/L Normal 10-54 [facility] Comment on above: Order Comment: Speci men Type: BLOOD SPECIMENOrdering Facility: [facility] Address: [address] [place] [address] Performed By: #### 2 4323-8 ####LERNER LABORATORYCLIA [id number] [place] [id number] [facility] [place] Anion gap [Moles/Vol] 13 mmol/L Normal 8-15 [facility] Comment on above: Order Comment: Speci men Type: BLOOD SPECIMENOrdering Facility: [facility] Address: [address] [place] [address] Performed By: #### 2 4323-8 ####LERNER LABORATORYCLIA [id number] [place] [address] [place] AST [Catalytic activity/Vol] 23 U/L Normal 14-40 [facility] Comment on above: Order Comment: Speci men Type: BLOOD SPECIMENOrdering Facility: [facility] Address: [address] [place] [address] Performed By: #### 2 4323-8 ####LERNER LABORATORYCLIA [id number] [place] [address] [place] Bilirubin [Mass/Vol] 0.4 mg/dL Normal 0.2-1.3 [facility] Comment on above: Order Comment: Speci men Type: BLOOD SPECIMENOrdering Facility: [facility] Address: [address] [place] [address] Performed By: #### 2 4323-8 ####LERNER LABORATORYCLIA [id number] [place] [address] [place] Calcium [Mass/Vol] 9.7 mg/dL Normal 8.5-10.2 [facility] Comment on above: Order Comment: Speci men Type: BLOOD SPECIMENOrdering Facility: [facility] Address: [address] [place] [address] Performed By: #### 2 4323-8 ####LERNER LABORATORYCLIA [id number] [place] [address] [place] Chloride [Moles/Vol] 98 mmol/L Normal 98-107 [facility] Comment on above: Order Comment: Speci men Type: BLOOD SPECIMENOrdering Facility: [facility] Address: [address] [place] [address] Performed By: #### 2 4323-8 ####LERNER LABORATORYCLIA [id number] [place] [address] [place] CO2 [Moles/Vol] 26 mmol/L Normal 22-30 [facility] Comment on above: Order Comment: Speci men Type: BLOOD SPECIMENOrdering Facility: [facility] Address: [address] [place] [address] Performed By: #### 2 4323-8 ####LERNER LABORATORYCLIA [id number] [place] [address] [place] Creatinine [Mass/Vol] 1.14 mg/dL Normal 0.73-1.22 [facility] Comment on above: Order Comment: Raudel carrillo Type: BLOOD SPECIMENOrdering Facility: [facility] Address: [address] [place] [address] Performed By: #### 2 4323-8 ####LERNER LABORATORYCLIA [id number] [place] [address] [place] Creatinine and Glomerular filtration rate.predicted panel (S/P/Bld) 70 mL/min/1.73m??? Normal >=60 [facility] Comment on above: Order Comment: Payalalejandro carrillo Type: BLOOD SPECIMENOrdering Facility: [facility] Address: [address] [place] [address] Result Comment: Sachi mated Glomerular Filtration Rate [...] actual GFR. Performed By: #### 2 4323-8 ####[facility] LABORATORYCLIA [id number] [place] [address] [place] Glucose [Mass/Vol] 150 mg/dL High 74-99 [facility] Comment on above: Order Comment: Raudel carrillo Type: BLOOD SPECIMENOrdering Facility: [facility] Address: [address] [place] [address] Result Comment: The [place] Diabetes Association (ADA) provides guidance for cutoff [...] Standards of Medical Care in Diabetes 2016, [place] [employer]. Diabetes Care. 2016.39(Suppl 1). Performed By: #### 2 4323-8 ####LERNER LABORATORYCLIA [id number] [address] STATES [facility] Potassium [Moles/Vol] 3.8 mmol/L Normal 3.7-5.1 [facility] Comment on above: Order Comment: Speci men Type: BLOOD SPECIMENOrdering Facility: [facility] Address: [address] [place] [address] Performed By: #### 2 4323-8 ####LERNER LABORATORYCLIA [id number] [address] [place] Protein [Mass/Vol] 7.9 g/dL Normal 6.3-8.0 [facility] Comment on above: Order Comment: Speci men Type: BLOOD SPECIMENOrdering Facility: [facility] Address: [address] [place] [address] Performed By: #### 2 4323-8 ####LERNER LABORATORYCLIA [id number] [address] Sodium [Moles/Vol] 137 mmol/L Normal 136-144 [facility] Comment on above: Order Comment: Speci men Type: BLOOD SPECIMENOrdering Facility: [facility] Address: [address] [place] [address] Performed By: #### 2 4323-8 ####LERNER LABORATORYCLIA [id number] [address] Urea nitrogen [Mass/Vol] 10 mg/dL Normal 9-24 [facility] Comment on above: Order Comment: Speci men Type: BLOOD SPECIMENOrdering Facility: [facility] Address: [address] [place] [address] Performed By: #### 2 4323-8 ####LERNER LABORATORYCLIA [id number] [address] [place] ED NOTEon 07-02-2024 ED NOTE HNO ID: [id number] Author: NIKHIL CORBIN RN Service: Nursing Author Type: Registered Nurse Type: ED Notes Filed: 07/02/2024 19:48 Note Text: Report to transport crew, new blood work drawn and sent and heplock removed Normal [facility] ED NOTE HNO ID: [id number] Author: DAVE CHÁVEZ, RN Service: ? Author Type: Registered Nurse Type: ED Notes Filed: 07/02/2024 19:17 Note Text: PT report given to Heaven (RN) [facility] ED NOTE Normal [facility] ED PROV NOTEon 07-02-2024 ED PROV NOTE Normal [facility] ED Triage Noteon 07-02-2024 ED Triage Note Normal [facility] SEPSIS LACTATE W/ REFLEX (IN ITIAL)on 07-02-2024 Lactate [Moles/Vol] 2.8 mmol/L High 0.5-2.0 [facility] Comment on above: Order Comment: Speci men Type: BLOOD SPECIMENOrdering Facility: [facility] Address: [address] [place] [address] Performed By: #### S LACTR ####[facility] LABORATORYCLIA [id number] [address] SEPSIS LACTATE W/ REFLEX (SE COND)on 07-02-2024 Lactate [Moles/Vol] 1.8 mmol/L Normal 0.5-2.0 [facility] Comment on above: Order Comment: Speci men Type: BLOOD SPECIMENOrdering Facility: [facility] Address: [address] [place] [address] Performed By: #### S LACT2 ####[facility] LABORATORYCLIA [id number] [address] XR FOOT 3V AP/LAT/OBL LTon 0 07-02-2024 XR FOOT 3V AP/LAT/OBL LT [facility] Glomerular filtration rate ( GFR) estimationOrdered By: Melo [place] on 06-27-2024 GFR/1.73 sq M.predicted among non-blacks MDRD (S/P/Bld) [Vol rate/Area] 84 mL/min/{1.73_m2} >60 [facility] Comment on above: Non- GFR Calc Serum or plasma creatinine m easurement (mass/volume)Ordered By: Melo [place] on 06-27-2024 Creatinine [Mass/Vol] 0.95 mg/dL 0.70-1.30 [facility] Comment on above: The validity of the calculated GFR & GFRAA in patients over 70 years has not been determined. Clinical correlation is essential. Glomerular filtration rate ( GFR) estimationOrdered By: Melo [place] on 06-26-2024 GFR/1.73 sq M.predicted among non-blacks MDRD (S/P/Bld) [Vol rate/Area] 82 mL/min/{1.73_m2} >60 [facility] Comment on above: Non- GFR Calc Serum or plasma creatinine m easurement (mass/volume)Ordered By: Melo [place] on 06-26-2024 Creatinine [Mass/Vol] 0.97 mg/dL 0.70-1.30 [facility] Comment on above: The validity of the calculated GFR & GFRAA in patients over 70 years has not been determined. Clinical correlation is essential. [facility]-19-2024 [facility] Basic metabolic 2000 panelon 06-06-2024 Anion gap [Moles/Vol] 11 mmol/L Normal 8-15 [facility] Comment on above: Order Comment: Speci men Type: BLOOD SPECIMENOrdering Facility: [facility] Address: [address] [place] [address] Performed By: #### 2 432-, ####[facility] LABORATORYCLIA [id number] [place] [address] [place] Calcium [Mass/Vol] 8.8 mg/dL Normal 8.5-10.2 [facility] Comment on above: Order Comment: Speci men Type: BLOOD SPECIMENOrdering Facility: [facility] Address: [address] [place] [address] Performed By: #### 2 4321-2, ####[facility] LABORATORYCLIA [id number] [place] [address] [place] Chloride [Moles/Vol] 101 mmol/L Normal 98-107 [facility] Comment on above: Order Comment: Speci men Type: BLOOD SPECIMENOrdering Facility: [facility] Address: [address] [place] [id number] Performed By: #### 2 4322, ####LERNER LABORATORYCLIA [id number] [place] [address] [place] CO2 [Moles/Vol] 28 mmol/L Normal 22-30 [facility] Comment on above: Order Comment: Speci men Type: BLOOD SPECIMENOrdering Facility: [facility] Address: [address] [place] [address] Performed By: #### 2 2, ####LERNER LABORATORYCLIA [id number] [place] [address] [place] Creatinine [Mass/Vol] 1.03 mg/dL Normal 0.73-1.22 [facility] Comment on above: Order Comment: Raudel carrillo Type: BLOOD SPECIMENOrdering Facility: [facility] Address: [address] [place] [address] Performed By: #### 2 2, ####LERNER LABORATORYCLIA [id number] [address] Creatinine and Glomerular filtration rate.predicted panel (S/P/Bld) 80 mL/min/1.73m??? Normal >=60 [facility] Comment on above: Order Comment: Raudel carrillo Type: BLOOD SPECIMENOrdering Facility: [facility] Address: [address] [place] [address] Result Comment: Sachi mated Glomerular Filtration Rate [...] reflect actual GFR. Performed By: #### 2 2, ####LERNER LABORATORYCLIA [id number] [place] [id number] [place] Glucose [Mass/Vol] 193 mg/dL High 74-99 [facility] Comment on above: Order Comment: Raudel carrillo Type: BLOOD SPECIMENOrdering Facility: [facility] Address: [address] [place] [address] Result Comment: The [place] Diabetes [employer] (ADA) provides guidance for cutoff [...] Standards of Medical Care in Diabetes 2016, [place] [employer]. Diabetes Care. 2016.39(Suppl 1). Performed By: #### 2 4320-07, ####LERNER LABORATORYCLIA [id number] [place] [address] [place] Potassium [Moles/Vol] 4.2 mmol/L Normal 3.7-5.1 [facility] Comment on above: Order Comment: Speci men Type: BLOOD SPECIMENOrdering Facility: [facility] Address: [address] [place] [address] Performed By: #### 2 4320-07, ####LERNER LABORATORYCLIA [id number] [place] [address] [place] Sodium [Moles/Vol] 140 mmol/L Normal 136-144 [facility] Comment on above: Order Comment: Payali men Type: BLOOD SPECIMENOrdering Facility: [facility] Address: [address] [place] [address] Performed By: #### 2 4320-07, ####LERNER LABORATORYCLIA [id number] [place] [address] [place] Urea nitrogen [Mass/Vol] 15 mg/dL Normal 9-24 [facility] Comment on above: Order Comment: Raudel men Type: BLOOD SPECIMENOrdering Facility: [facility] Address: [address] [place] [address] Performed By: #### 2 4320-07, ####LERNER LABORATORYCLIA [id number] [place] [address] [place] CASE MANAGEMon 06-06-2024 CASE MANAGEM Normal [facility] CASE MANAGEM Normal [facility] CBC W Auto Differential pane l (Bld)on 06-06-2024 Basophils (Bld) [#/Vol] 0.08 10*3/uL Normal <0.11 [facility] Comment on above: Order Comment: Speci men Type: BLOOD SPECIMENOrdering Facility: [facility] Address: [address] [place] [address] Performed By: #### 5 7021-8 ####LERNER LABORATORYCLIA [id number] [place] [address] [place] Basophils/100 WBC (Bld) 0.8 % Normal [facility] Comment on above: Order Comment: Speci men Type: BLOOD SPECIMENOrdering Facility: [facility] Address: [address] [place] [address] Performed By: #### 5 7021-8 ####LERNER LABORATORYCLIA [id number] [place] [address] [place] Differential cell count method Nom (Bld) Auto Normal [facility] Comment on above: Order Comment: Speci men Type: BLOOD SPECIMENOrdering Facility: [facility] Address: [address] [place] [address] Performed By: #### 5 7021-8 ####LERNER LABORATORYCLIA [id number] [place] [address] [place] Eosinophils (Bld) [#/Vol] 0.42 10*3/uL Normal <0.46 [facility] Comment on above: Order Comment: Speci men Type: BLOOD SPECIMENOrdering Facility: [facility] Address: [address] [place] [address] Performed By: #### 5 7021-8 ####LERNER LABORATORYCLIA [id number] [place] [address] [place] Eosinophils/100 WBC (Bld) 4.1 % Normal [facility] Comment on above: Order Comment: Speci men Type: BLOOD SPECIMENOrdering Facility: [facility] Address: [address] [place] [address] Performed By: #### 5 7021-8 ####LERNER LABORATORYCLIA [id number] [address] [place] Erythrocyte distribution width (RBC) [Ratio] 15.7 % High 11.5-15.0 [facility] Comment on above: Order Comment: Speci men Type: BLOOD SPECIMENOrdering Facility: [facility] Address: [address] [place] [address] Performed By: #### 5 7021-8 ####LERNER LABORATORYCLIA [id number] [address] [place] Hematocrit (Bld) [Volume fraction] 37.7 % Low 39.0-51.0 [facility] Comment on above: Order Comment: Speci men Type: BLOOD SPECIMENOrdering Facility: [facility] Address: [address] [place] [address] Performed By: #### 5 7021-8 ####LERNER LABORATORYCLIA [id number] [address] [place] Hemoglobin (Bld) [Mass/Vol] 11.8 g/dL Low 13.0-17.0 [facility] Comment on above: Order Comment: Speci men Type: BLOOD SPECIMENOrdering Facility: [facility] Address: [address] [place] [address] Performed By: #### 5 7021-8 ####LERNER LABORATORYCLIA [id number] [address] [place] Immature granulocytes (Bld) [#/Vol] 0.07 10*3/uL Normal <0.10 [facility] Comment on above: Order Comment: Speci men Type: BLOOD SPECIMENOrdering Facility: [facility] Address: [address] [place] [address] Performed By: #### 5 7021-8 ####LERNER LABORATORYCLIA [id number] [address] Immature granulocytes/100 WBC (Bld) 0.7 % Normal [facility] Comment on above: Order Comment: Speci men Type: BLOOD SPECIMENOrdering Facility: [facility] Address: [address] [place] [address] Performed By: #### 5 7021-8 ####LERNER LABORATORYCLIA [id number] [address] [place] Lymphocytes (Bld) [#/Vol] 1.73 10*3/uL Normal 1.00-4.00 [facility] Comment on above: Order Comment: Speci men Type: BLOOD SPECIMENOrdering Facility: [facility] Address: [address] [place] [address] Performed By: #### 5 7021-8 ####LERNER LABORATORYCLIA [id number] [address] Lymphocytes/100 WBC (Bld) 16.7 % Normal [facility] Comment on above: Order Comment: Speci men Type: BLOOD SPECIMENOrdering Facility: [facility] Address: [address] [place] [address] Performed By: #### 5 7021-8 ####LERNER LABORATORYCLIA [id number] [address] STATES [facility] MCH (RBC) [Entitic mass] 28.0 pg Normal 26.0-34.0 [facility] Comment on above: Order Comment: Speci men Type: BLOOD SPECIMENOrdering Facility: [facility] Address: [address] [place] [address] Performed By: #### 5 7021-8 ####LERNER LABORATORYCLIA [id number] [address] MCHC (RBC) [Mass/Vol] 31.3 g/dL Normal 30.5-36.0 [facility] Comment on above: Order Comment: Speci men Type: BLOOD SPECIMENOrdering Facility: [facility] Address: [address] [place] [address] Performed By: #### 5 7021-8 ####LERNER LABORATORYCLIA [id number] [address] MCV (RBC) [Entitic vol] 89.3 fL Normal 80.0-100.0 [facility] Comment on above: Order Comment: Speci men Type: BLOOD SPECIMENOrdering Facility: [facility] Address: [address] [place] [address] Performed By: #### 5 7021-8 ####LERNER LABORATORYCLIA [id number] [place] [address] [place] Monocytes (Bld) [#/Vol] 0.86 10*3/uL Normal <0.87 [facility] Comment on above: Order Comment: Speci men Type: BLOOD SPECIMENOrdering Facility: [facility] Address: [address] [place] [address] Performed By: #### 5 7021-8 ####LERNER LABORATORYCLIA [id number] [place] [address] [place] Monocytes/100 WBC (Bld) 8.3 % Normal [facility] Comment on above: Order Comment: Speci men Type: BLOOD SPECIMENOrdering Facility: [facility] Address: [address] [place] [address] Performed By: #### 5 7021-8 ####LERNER LABORATORYCLIA [id number] [place] [address] [place] Neutrophils (Bld) [#/Vol] 7.21 10*3/uL Normal 1.45-7.50 [facility] Comment on above: Order Comment: Speci men Type: BLOOD SPECIMENOrdering Facility: [facility] Address: [address] [place] [address] Performed By: #### 5 7021-8 ####LERNER LABORATORYCLIA [id number] [place] [address] [place] Neutrophils/100 WBC (Bld) 69.4 % Normal [facility] Comment on above: Order Comment: Speci men Type: BLOOD SPECIMENOrdering Facility: [facility] Address: [address] [place] [address] Performed By: #### 5 7021-8 ####LERNER LABORATORYCLIA [id number] [place] [address] [place] Nucleated RBC (Bld) [#/Vol] 10*3/uL Normal <0.01 [facility] Comment on above: Order Comment: Speci men Type: BLOOD SPECIMENOrdering Facility: [facility] Address: [address] [place] [address] Performed By: #### 5 7021-8 ####LERNER LABORATORYCLIA [id number] [place] [address] [place] Nucleated RBC/100 WBC (Bld) [Ratio] 0.0 /100 WBC Normal [facility] Comment on above: Order Comment: Speci men Type: BLOOD SPECIMENOrdering Facility: [facility] Address: [address] [place] [address] Performed By: #### 5 7021-8 ####LERNER LABORATORYCLIA [id number] [place] [address] [place] Platelet mean volume (Bld) [Entitic vol] 10.0 fL Normal 9.0-12.7 [facility] Comment on above: Order Comment: Speci men Type: BLOOD SPECIMENOrdering Facility: [facility] Address: [address] [place] [address] Performed By: #### 5 7021-8 ####LERNER LABORATORYCLIA [id number] [place] [address] [place] Platelets (Bld) [#/Vol] 194 10*3/uL Normal 150-400 [facility] Comment on above: Order Comment: Speci men Type: BLOOD SPECIMENOrdering Facility: [facility] Address: [address] [place] [address] Performed By: #### 5 7021-8 ####LERNER LABORATORYCLIA [id number] [place] [address] [place] RBC (Bld) [#/Vol] 4.22 10*6/uL Normal 4.20-6.00 [facility] Comment on above: Order Comment: Speci men Type: BLOOD SPECIMENOrdering Facility: [facility] Address: [address] [place] [address] Performed By: #### 5 7021-8 ####LERNER LABORATORYCLIA [id number] [place] [address] [place] WBC (Bld) [#/Vol] 10.37 10*3/uL Normal 3.70-11.00 [facility] Comment on above: Order Comment: Speci men Type: BLOOD SPECIMENOrdering Facility: [facility] Address: [facility] [place] [address] Performed By: #### 5 7021-8 ####[facility] LABORATORYCLIA [id number] [place] [address] [place] CNCOon 06-06-2024 CNCO Letter Text [facility] CNDSon 06-06-2024 CNDS [facility] CONSULT PROGon 06-06-2024 CONSULT PROG [facility] CONSULT PROG [facility] Magnesium SerPl-mCncon 06-06 Magnesium [Mass/Vol] 2.1 mg/dL Normal 1.7-2.3 [facility] Comment on above: Order Comment: Speci men Type: BLOOD SPECIMENOrdering Facility: [facility] Address: [facility] [place] [address] Performed By: #### 2 4321-2, 03218-2 ####[facility] LABORATORYCLIA [id number] [address] [place] THERAPY NTon 06-06-2024 THERAPY NT [facility] Vancomycin [place] SerPl-mCncon 06-06-2024 Vancomycin random [Mass/Vol] 14.8 ug/mL Normal 10.0-20.0 [facility] Comment on above: Order Comment: Speci men Type: BLOOD SPECIMENOrdering Facility: [facility] Address: [facility] [place] [address] Result Comment: Refe rence ranges and high/low indicator flags are provided as general guidelines only. The treating physician must determine appropriate target levels/dosing based on the specific clinical situation. Performed By: #### 4 091-5 ####[facility] LABORATORYCLIA [id number] [place] [address] [place] ANES POSTPROC EVALon 024 ANES POSTPROC EVAL [facility] ANES PRE-OPon 06-05-2024 ANES PRE-OP [facility] BRIEF OP NOTon 06-05-2024 BRIEF OP NOT [facility] Bacteria Spec Anaerobe Culto n 06-05-2024 Bacteria identified Anaer cx Nom (Unsp spec) Negative Normal [facility] Comment on above: Performed By: #### 6 462-6, 635-3 ####[facility] LABCLIA [id number] [address] [address] [place] Bacteria identified Anaer cx Nom (Unsp spec) Negative Normal [facility] Comment on above: Performed By: #### 6 35-3, 65398-7, 30540-7 ####[facility] LABCLIA [id number] [address] [address] [place] Bacteria Tiss Culton 024 Bacteria identified Cx Nom (Tiss) ORGANISM ID: 1 Rare skin mickey GRAM STAIN: No organisms seen No Polymorphonuclear Leukocytes Abnormal [facility] Comment on above: Performed By: #### 6 35-3, 62411-2, 12418-6 ####[facility] LABCLIA [id number] [place] [address] [place] Bacteria Wnd Culton 06-05-20 24 Bacteria identified Cx Nom (Wound) ORGANISM ID: 1 Rare Staphylococcus epidermidis No further workup GRAM STAIN: No organisms seen Rare Polymorphonuclear leukocytes Abnormal [facility] Comment on above: Performed By: #### 6 462-6, 635-3 ####[facility] LABCLIA [id number] [address] [address] [place] Basic metabolic 2000 panelon 06-05-2024 Anion gap [Moles/Vol] 8 mmol/L Normal 8-15 [facility] Comment on above: Order Comment: Speci men Type: BLOOD SPECIMENOrdering Facility: [facility] Address: [address] [place] [address] Performed By: #### 2 4321-2, 90770-1 ####[facility]ORATORYCLIA [id number] [place] [address] [place] Calcium [Mass/Vol] 9.0 mg/dL Normal 8.5-10.2 [facility] Comment on above: Order Comment: Speci men Type: BLOOD SPECIMENOrdering Facility: [facility] Address: [address] [place] [address] Performed By: #### 2 4321-2, ####[facility] LABORATORYCLIA [id number] [place] [address] [place] Chloride [Moles/Vol] 104 mmol/L Normal 98-107 [facility] Comment on above: Order Comment: Speci men Type: BLOOD SPECIMENOrdering Facility: [facility] Address: [address] [place] [address] Performed By: #### 2 4321-2, ####[facility] LABORATORYCLIA [id number] [place] [address] [place] CO2 [Moles/Vol] 28 mmol/L Normal 22-30 [facility] Comment on above: Order Comment: Speci men Type: BLOOD SPECIMENOrdering Facility: [facility] Address: [address] [place] [address] Performed By: #### 2 432-2, ####[facility] LABORATORYCLIA [id number] [place] [address] [place] Creatinine [Mass/Vol] 1.15 mg/dL Normal 0.73-1.22 [facility] Comment on above: Order Comment: Speci men Type: BLOOD SPECIMENOrdering Facility: [facility] Address: [address] [place] [address] Performed By: #### 2 4321-2, ####[facility] LABORATORYCLIA [id number] [address] [place] Creatinine and Glomerular filtration rate.predicted panel (S/P/Bld) 70 mL/min/1.73m??? Normal >=60 [facility] Comment on above: Order Comment: Speci men Type: BLOOD SPECIMENOrdering Facility: [facility] Address: [address] [place] [address] Result Comment: Sachi mated Glomerular Filtration Rate [...] reflect actual GFR. Performed By: #### 2 432-, ####[facility] LABORATORYCLIA [id number] [place] [address] [place] Glucose [Mass/Vol] 149 mg/dL High 74-99 [facility] Comment on above: Order Comment: Raudel carrillo Type: BLOOD SPECIMENOrdering Facility: [facility] Address: [address] [place] [address] Result Comment: The [place] [employer] (ADA) provides guidance for cutoff [...] Standards of Medical Care in Diabetes 2016, [place] [employer]. Diabetes Care. 2016.39(Suppl 1). Performed By: #### 2 4320-07, ####[facility] LABORATORYCLIA [id number] [place] [address] [place] Potassium [Moles/Vol] 4.0 mmol/L Normal 3.7-5.1 [facility] Comment on above: Order Comment: Raudel carrillo Type: BLOOD SPECIMENOrdering Facility: [facility] Address: [address] [place] [address] Performed By: #### 2 43206-19, ####[facility] LABORATORYCLIA [id number] [place] [id number] [place] Sodium [Moles/Vol] 140 mmol/L Normal 136-144 [facility] Comment on above: Order Comment: Raudel carrillo Type: BLOOD SPECIMENOrdering Facility: [facility] Address: [address] [place] [address] Performed By: #### 2 4321-2, ####[facility] LABORATORYCLIA [id number] [address] STATES [facility] Urea nitrogen [Mass/Vol] 15 mg/dL Normal 9- [facility] Comment on above: Order Comment: Speci men Type: BLOOD SPECIMENOrdering Facility: [facility] Address: [address] [place] [address] Performed By: #### 2 4321-2, ####[facility] LABORATORYCLIA [id number] [address] [facility] CASE MANAGEMon 06-05-2024 CASE MANAGEM Normal [facility] CBC W Auto Differential pane l (Bld)on 06-05-2024 Basophils (Bld) [#/Vol] 0.09 10*3/uL Normal <0.11 [facility] Comment on above: Order Comment: Speci men Type: BLOOD SPECIMENOrdering Facility: [facility] Address: [address] [place] [address] Performed By: #### 5 7021-8 ####[facility] LABORATORYCLIA [id number] [place] [address] [place] [facility] Basophils/100 WBC (Bld) 1.0 % Normal [facility] Comment on above: Order Comment: Speci men Type: BLOOD SPECIMENOrdering Facility: [facility] Address: [address] [place] [address] Performed By: #### 5 7021-8 ####[facility] LABORATORYCLIA [id number] [address] Differential cell count method Nom (Bld) Auto Normal [facility] Comment on above: Order Comment: Speci men Type: BLOOD SPECIMENOrdering Facility: [facility] Address: [address] [place] [address] Performed By: #### 5 7021-8 ####[facility] LABORATORYCLIA [id number] [place] [address] [place] Eosinophils (Bld) [#/Vol] 0.31 10*3/uL Normal <0.46 [facility] Comment on above: Order Comment: Speci men Type: BLOOD SPECIMENOrdering Facility: [facility] Address: [address] [place] [address] Performed By: #### 5 7021-8 ####[facility] LABORATORYCLIA [id number] [address] [place] Eosinophils/100 WBC (Bld) 3.3 % Normal [facility] Comment on above: Order Comment: Speci men Type: BLOOD SPECIMENOrdering Facility: [facility] Address: [address] [place] [address] Performed By: #### 5 7021-8 ####[facility] LABORATORYCLIA [id number] [address] [place] Erythrocyte distribution width (RBC) [Ratio] 15.6 % High 11.5-15.0 [facility] Comment on above: Order Comment: Speci men Type: BLOOD SPECIMENOrdering Facility: [facility] Address: [address] [place] [address] Performed By: #### 5 7021-8 ####[facility] LABORATORYCLIA [id number] [address] Hematocrit (Bld) [Volume fraction] 40.6 % Normal 39.0-51.0 [facility] Comment on above: Order Comment: Speci men Type: BLOOD SPECIMENOrdering Facility: [facility] Address: [address] [place] [address] Performed By: #### 5 7021-8 ####[facility] LABORATORYCLIA [id number] [address] [place] Hemoglobin (Bld) [Mass/Vol] 12.6 g/dL Low 13.0-17.0 [facility] Comment on above: Order Comment: Speci men Type: BLOOD SPECIMENOrdering Facility: [facility] Address: [address] [place] [address] Performed By: #### 5 7021-8 ####[facility] LABORATORYCLIA [id number] [address] [place] Immature granulocytes (Bld) [#/Vol] 0.04 10*3/uL Normal <0.10 [facility] Comment on above: Order Comment: Speci men Type: BLOOD SPECIMENOrdering Facility: [facility] Address: [address] [place] [address] Performed By: #### 5 7021-8 ####[facility] LABORATORYCLIA [id number] [address] Immature granulocytes/100 WBC (Bld) 0.4 % Normal [facility] Comment on above: Order Comment: Speci men Type: BLOOD SPECIMENOrdering Facility: [facility] Address: [address] [place] [address] Performed By: #### 5 7021-8 ####[facility] LABORATORYCLIA [id number] [address] [place] Lymphocytes (Bld) [#/Vol] 1.76 10*3/uL Normal 1.00-4.00 [facility] Comment on above: Order Comment: Speci men Type: BLOOD SPECIMENOrdering Facility: [facility] Address: [address] [place] [address] Performed By: #### 5 7021-8 ####[facility] LABORATORYCLIA [id number] [address] Lymphocytes/100 WBC (Bld) 18.9 % Normal [facility] Comment on above: Order Comment: Speci men Type: BLOOD SPECIMENOrdering Facility: [facility] Address: [address] [place] [address] Performed By: #### 5 7021-8 ####[facility] LABORATORYCLIA [id number] [address] MCH (RBC) [Entitic mass] 27.6 pg Normal 26.0-34.0 [facility] Comment on above: Order Comment: Speci men Type: BLOOD SPECIMENOrdering Facility: [facility] Address: [address] [place] [address] Performed By: #### 5 7021-8 ####[facility] LABORATORYCLIA [id number] [address] MCHC (RBC) [Mass/Vol] 31.0 g/dL Normal 30.5-36.0 [facility] Comment on above: Order Comment: Speci men Type: BLOOD SPECIMENOrdering Facility: [facility] Address: [address] [place] [address] Performed By: #### 5 7021-8 ####[facility] LABORATORYCLIA [id number] [place] [address] [place] MCV (RBC) [Entitic vol] 88.8 fL Normal 80.0-100.0 [facility] Comment on above: Order Comment: Speci men Type: BLOOD SPECIMENOrdering Facility: [facility] Address: [address] [place] [address] Performed By: #### 5 7021-8 ####[facility] LABORATORYCLIA [id number] [place] [address] [place] Monocytes (Bld) [#/Vol] 0.95 10*3/uL High <0.87 [facility] Comment on above: Order Comment: Speci men Type: BLOOD SPECIMENOrdering Facility: [facility] Address: [address] [place] [address] Performed By: #### 5 7021-8 ####[facility] LABORATORYCLIA [id number] [address] [place] Monocytes/100 WBC (Bld) 10.2 % Normal [facility] Comment on above: Order Comment: Speci men Type: BLOOD SPECIMENOrdering Facility: [facility] Address: [address] [place] [address] Performed By: #### 5 7021-8 ####[facility] LABORATORYCLIA [id number] [place] [address] [place] Neutrophils (Bld) [#/Vol] 6.16 10*3/uL Normal 1.45-7.50 [facility] Comment on above: Order Comment: Speci men Type: BLOOD SPECIMENOrdering Facility: [facility] Address: [address] [place] [address] Performed By: #### 5 7021-8 ####[facility] LABORATORYCLIA [id number] [address] [place] Neutrophils/100 WBC (Bld) 66.2 % Normal [facility] Comment on above: Order Comment: Speci men Type: BLOOD SPECIMENOrdering Facility: [facility] Address: [address] [place] [address] Performed By: #### 5 7021-8 ####[facility] LABORATORYCLIA [id number] [place] [address] [place] Nucleated RBC (Bld) [#/Vol] 10*3/uL Normal <0.01 [facility] Comment on above: Order Comment: Speci men Type: BLOOD SPECIMENOrdering Facility: [facility] Address: [address] [place] [address] Performed By: #### 5 7021-8 ####[facility] LABORATORYCLIA [id number] [address] Nucleated RBC/100 WBC (Bld) [Ratio] 0.0 /100 WBC Normal [facility] Comment on above: Order Comment: Speci men Type: BLOOD SPECIMENOrdering Facility: [facility] Address: [address] [place] [address] Performed By: #### 5 7021-8 ####[facility] LABORATORYCLIA [id number] [place] [address] [place] Platelet mean volume (Bld) [Entitic vol] 10.2 fL Normal 9.0-12.7 [facility] Comment on above: Order Comment: Speci men Type: BLOOD SPECIMENOrdering Facility: [facility] Address: [address] [place] [address] Performed By: #### 5 7021-8 ####[facility] LABORATORYCLIA [id number] [place] [address] [place] Platelets (Bld) [#/Vol] 195 10*3/uL Normal 150-400 [facility] Comment on above: Order Comment: Speci men Type: BLOOD SPECIMENOrdering Facility: [facility] Address: [address] [place] [address] Performed By: #### 5 7021-8 ####[facility] LABORATORYCLIA [id number] [place] [address] [place] RBC (Bld) [#/Vol] 4.57 10*6/uL Normal 4.20-6.00 [facility] Comment on above: Order Comment: Speci men Type: BLOOD SPECIMENOrdering Facility: [facility] Address: [address] [place] [address] Performed By: #### 5 7021-8 ####[facility]ORATORYCLIA [id number] [place] [address] [place] WBC (Bld) [#/Vol] 9.31 10*3/uL Normal 3.70-11.00 [facility] Comment on above: Order Comment: Speci men Type: BLOOD SPECIMENOrdering Facility: [facility] Address: [address] [place] [address] Performed By: #### 5 7021-8 ####[facility]ORATORYCLIA [id number] [address] [place] CONSULT PROGon 06-05-2024 CONSULT PROG [facility] CONSULT PROG [facility] Magnesium SerPl-mCncon 06-05 Magnesium [Mass/Vol] 2.1 mg/dL Normal 1.7-2.3 [facility] Comment on above: Order Comment: Speci men Type: BLOOD SPECIMENOrdering Facility: [facility] Address: [address] [place] [address] Performed By: #### 2 4321-2, 95229-7 ####[facility]ORATORYCLIA [id number] [place] [address] [place] Microorganism Spec Culton Microorganism identified Cx Nom (Unsp spec) CULTURE, AFB: No Acid Fast Bacilli isolated after 42 days AFB STAIN: No acid fast bacilli seen by fluorochrome stain [facility] Comment on above: Performed By: #### 6 35-3, 86855-5, 11453-0 ####[facility] LABCLIA [id number] [place] [address] [place] NUTRITIONon 06-05-2024 NUTRITION [facility] OPERATIVE NOon 06-05-2024 OPERATIVE NO [facility] SURGICAL PATHOLOGYon 024 CASE REPORT [facility] Comment on above: Order Comment: Speci men Type: TISSUE SPECIMENOrdering Facility: [facility] Address: [address] [place] [address] Result Comment: Surg ical Pathology Report Case: [id number] Provider: Brandon Rubin DPM Collected: 06/05/2024 09:39 AMOrdering Location: [facility] Received: 06/05/2024 11:27 AMPathologist: Sheree Wright MDSpecimens: A) - Bone, Resection, Left first metatarsal head B) - Digit, Left Foot, First, Left great toe Performed By: #### S ####[facility] LABCLIA [id number] [address] [facility] CLINICAL HISTORY [facility] Comment on above: Order Comment: Payali lorena Type: TISSUE SPECIMENOrdering Facility: [facility] Address: [address] [place] [address] Result Comment: Pre- op diagnosis:Osteomyelitis of ankle or foot, acute, left (HCC) [M86.172] Performed By: #### S ####[facility] LABCLIA [id number] [address] [facility] FINAL DIAGNOSIS [facility] Comment on above: Order Comment: Speci men Type: TISSUE SPECIMENOrdering Facility: [facility] Address: [address] [place] [address] Result Comment: A Fi rst metatarsal, left, resection:- Bone with marrow edema and bony remodeling. Negative for acute osteomyelitis.B. First digit, left foot, amputation:- Skin and soft tissue with granulation tissue formation.- Chronic osteomyelitis. Performed By: #### S ####[facility] LABCLIA [id number] [address] [place] FINAL PERFORMING LAB Normal [facility] Comment on above: Order Comment: Speci men Type: TISSUE SPECIMENOrdering Facility: [facility] Address: [address] [place] [address] Result Comment: Diag nostic interpretation performed at [facility], [address] [place] [address] CLIA# [id number] Director: Sedrick Corona M.D. Performed By: #### S ####[facility] LABIA [id number] [place] [address] [place] GROSS DESCRIPTION Normal [facility] Comment on above: Order Comment: Speci men Type: TISSUE SPECIMENOrdering Facility: [facility] Address: [address] [place] [address] Result Comment: A. B one, ResectionReceived in [...] The specimen is approximately 50% surfaced by qnxz-fnh-isqj, diffusely sloughing skin. A markedly thickened, yellow-black nail is present. Nevus of skin is remarkable for a 1.5 x 1.5 cm area of ulceration, which is sectioned to reveal underlying softened bone. A account retention representative section, to include ulcer and underlying bone, submitted in cassette B1, following light decalcification in formic acid.AKA June 05, 2024 4:01 PMGross examination performed at [facility], [address] [place] [address].[place] [address] Performed By: #### S ####[facility] LABCLIA [id number] [place] [address] [place] Basic metabolic 2000 panelon 06-04-2024 Anion gap [Moles/Vol] 9 mmol/L Normal 8-15 [facility] Comment on above: Order Comment: Speci men Type: BLOOD SPECIMENOrdering Facility: [facility] Address: [address] [place] [address] Performed By: #### 1 9123-02, 00305-0 ####[facility] LABORATORYCLIA [id number] [place] [address] [place] Calcium [Mass/Vol] 8.7 mg/dL Normal 8.5-10.2 [facility] Comment on above: Order Comment: Speci men Type: BLOOD SPECIMENOrdering Facility: [facility] Address: [address] [place] [address] Performed By: #### 1 9123-02, 22421-0 ####[facility] LABORATORYCLIA [id number] [place] [address] [place] Chloride [Moles/Vol] 105 mmol/L Normal 98-107 [facility] Comment on above: Order Comment: Speci men Type: BLOOD SPECIMENOrdering Facility: [facility] Address: [address] [place] [address] Performed By: #### 1 9123-02, 30520-1 ####[facility] LABORATORYCLIA [id number] [place] [address] [place] CO2 [Moles/Vol] 27 mmol/L Normal 22-30 [facility] Comment on above: Order Comment: Speci men Type: BLOOD SPECIMENOrdering Facility: [facility] Address: [address] [place] [address] Performed By: #### 1 9123-02, 92211-8 ####[facility] LABORATORYCLIA [id number] [place] [address] [place] Creatinine [Mass/Vol] 1.11 mg/dL Normal 0.73-1.22 [facility] Comment on above: Order Comment: Speci men Type: BLOOD SPECIMENOrdering Facility: [facility] Address: [address] [place] [address] Performed By: #### 1 9123-02, 11206-3 ####[facility] LABORATORYCLIA [id number] [place] [address] [place] Creatinine and Glomerular filtration rate.predicted panel (S/P/Bld) 73 mL/min/1.73m??? Normal >=60 [facility] Comment on above: Order Comment: Raudel carrillo Type: BLOOD SPECIMENOrdering Facility: [facility] Address: [address] [place] [address] Result Comment: Sachi mated Glomerular Filtration Rate [...] actual GFR. Performed By: #### 1 9123-9, 97869-1 ####[facility] LABORATORYCLIA [id number] [place] [id number] [place] Glucose [Mass/Vol] 147 mg/dL High 74-99 [facility] Comment on above: Order Comment: Raudel carrillo Type: BLOOD SPECIMENOrdering Facility: [facility] Address: [address] [place] [address] Result Comment: The [place] [employer] (ADA) provides guidance for cutoff [...] Standards of Medical Care in Diabetes 2016, [place] [employer]. Diabetes Care. 2016.39(Suppl 1). Performed By: #### 1 9123-9, 22468-4 ####[facility]ORATORYCLIA [id number] [place] [id number] [place] Potassium [Moles/Vol] 3.9 mmol/L Normal 3.7-5.1 [facility] Comment on above: Order Comment: Raudel carrillo Type: BLOOD SPECIMENOrdering Facility: [facility] Address: [address] [place] [address] Performed By: #### 1 9123-9, 30049-0 ####[facility] LABORATORYCLIA [id number] [address] STATES [facility] Sodium [Moles/Vol] 141 mmol/L Normal 136-144 [facility] Comment on above: Order Comment: Speci men Type: BLOOD SPECIMENOrdering Facility: [facility] Address: [address] [place] [address] Performed By: #### 1 9123-9, 40517-0 ####[facility] LABORATORYCLIA [id number] [place] [address] [place] Urea nitrogen [Mass/Vol] 13 mg/dL Normal 9-24 [facility] Comment on above: Order Comment: Speci men Type: BLOOD SPECIMENOrdering Facility: [facility] Address: [address] [place] [address] Performed By: #### 1 9123-9, 72818-3 ####[facility] LABORATORYCLIA [id number] [address] STATES [facility] CBC W Auto Differential pane l (Bld)on 06-04-2024 Basophils (Bld) [#/Vol] 0.07 10*3/uL Normal <0.11 [facility] Comment on above: Order Comment: Speci men Type: BLOOD SPECIMENOrdering Facility: [facility] Address: [address] [place] [address] Performed By: #### 5 7021-8 ####[facility] LABORATORYCLIA [id number] [address] STATES [facility] Basophils/100 WBC (Bld) 0.8 % Normal [facility] Comment on above: Order Comment: Speci men Type: BLOOD SPECIMENOrdering Facility: [facility] Address: [address] [place] [address] Performed By: #### 5 7021-8 ####[facility] LABORATORYCLIA [id number] [address] Differential cell count method Nom (Bld) Auto Normal [facility] Comment on above: Order Comment: Speci men Type: BLOOD SPECIMENOrdering Facility: [facility] Address: [address] [place] [address] Performed By: #### 5 7021-8 ####[facility] LABORATORYCLIA [id number] [place] [address] [place] Eosinophils (Bld) [#/Vol] 0.19 10*3/uL Normal <0.46 [facility] Comment on above: Order Comment: Speci men Type: BLOOD SPECIMENOrdering Facility: [facility] Address: [address] [place] [address] Performed By: #### 5 7021-8 ####[facility] LABORATORYCLIA [id number] [address] [place] Eosinophils/100 WBC (Bld) 2.1 % Normal [facility] Comment on above: Order Comment: Speci men Type: BLOOD SPECIMENOrdering Facility: [facility] Address: [address] [place] [address] Performed By: #### 5 7021-8 ####[facility] LABORATORYCLIA [id number] [address] [place] Erythrocyte distribution width (RBC) [Ratio] 15.7 % High 11.5-15.0 [facility] Comment on above: Order Comment: Speci men Type: BLOOD SPECIMENOrdering Facility: [facility] Address: [address] [place] [address] Performed By: #### 5 7021-8 ####[facility] LABORATORYCLIA [id number] [address] [place] Hematocrit (Bld) [Volume fraction] 40.7 % Normal 39.0-51.0 [facility] Comment on above: Order Comment: Speci men Type: BLOOD SPECIMENOrdering Facility: [facility] Address: [address] [place] [address] Performed By: #### 5 7021-8 ####[facility] LABORATORYCLIA [id number] [address] [place] Hemoglobin (Bld) [Mass/Vol] 12.8 g/dL Low 13.0-17.0 [facility] Comment on above: Order Comment: Speci men Type: BLOOD SPECIMENOrdering Facility: [facility] Address: [address] [place] [address] Performed By: #### 5 7021-8 ####[facility] LABORATORYCLIA [id number] [address] Immature granulocytes (Bld) [#/Vol] 0.05 10*3/uL Normal <0.10 [facility] Comment on above: Order Comment: Speci men Type: BLOOD SPECIMENOrdering Facility: [facility] Address: [address] [place] [address] Performed By: #### 5 7021-8 ####LERNER LABORATORYCLIA [id number] [address] Immature granulocytes/100 WBC (Bld) 0.6 % Normal [facility] Comment on above: Order Comment: Speci men Type: BLOOD SPECIMENOrdering Facility: [facility] Address: [address] [place] [address] Performed By: #### 5 7021-8 ####LERNER LABORATORYCLIA [id number] [address] [place] Lymphocytes (Bld) [#/Vol] 1.65 10*3/uL Normal 1.00-4.00 [facility] Comment on above: Order Comment: Speci men Type: BLOOD SPECIMENOrdering Facility: [facility] Address: [address] [place] [address] Performed By: #### 5 7021-8 ####LERNER LABORATORYCLIA [id number] [address] Lymphocytes/100 WBC (Bld) 18.6 % Normal [facility] Comment on above: Order Comment: Speci men Type: BLOOD SPECIMENOrdering Facility: [facility] Address: [address] [place] [address] Performed By: #### 5 7021-8 ####LERNER LABORATORYCLIA [id number] [place] [address] [place] MCH (RBC) [Entitic mass] 28.0 pg Normal 26.0-34.0 [facility] Comment on above: Order Comment: Speci men Type: BLOOD SPECIMENOrdering Facility: [facility] Address: [address] [place] [address] Performed By: #### 5 7021-8 ####LERNER LABORATORYCLIA [id number] [address] [place] MCHC (RBC) [Mass/Vol] 31.4 g/dL Normal 30.5-36.0 [facility] Comment on above: Order Comment: Speci men Type: BLOOD SPECIMENOrdering Facility: [facility] Address: [address] [place] [address] Performed By: #### 5 7021-8 ####LERNER LABORATORYCLIA [id number] [address] [place] MCV (RBC) [Entitic vol] 89.1 fL Normal 80.0-100.0 [facility] Comment on above: Order Comment: Speci men Type: BLOOD SPECIMENOrdering Facility: [facility] Address: [address] [place] [address] Performed By: #### 5 7021-8 ####LERNER LABORATORYCLIA [id number] [place] [address] [place] Monocytes (Bld) [#/Vol] 1.05 10*3/uL High <0.87 [facility] Comment on above: Order Comment: Speci men Type: BLOOD SPECIMENOrdering Facility: [facility] Address: [address] [place] [address] Performed By: #### 5 7021-8 ####LERNER LABORATORYCLIA [id number] [address] Monocytes/100 WBC (Bld) 11.8 % Normal [facility] Comment on above: Order Comment: Speci men Type: BLOOD SPECIMENOrdering Facility: [facility] Address: [address] [place] [address] Performed By: #### 5 7021-8 ####LERNER LABORATORYCLIA [id number] [place] [address] [place] Neutrophils (Bld) [#/Vol] 5.88 10*3/uL Normal 1.45-7.50 [facility] Comment on above: Order Comment: Speci men Type: BLOOD SPECIMENOrdering Facility: [facility] Address: [address] [place] [address] Performed By: #### 5 7021-8 ####LERNER LABORATORYCLIA [id number] [address] [place] Neutrophils/100 WBC (Bld) 66.1 % Normal [facility] Comment on above: Order Comment: Speci men Type: BLOOD SPECIMENOrdering Facility: [facility] Address: [address] [place] [address] Performed By: #### 5 7021-8 ####LERNER LABORATORYCLIA [id number] [place] [address] [place] Nucleated RBC (Bld) [#/Vol] 10*3/uL Normal <0.01 [facility] Comment on above: Order Comment: Speci men Type: BLOOD SPECIMENOrdering Facility: [facility] Address: [address] [place] [address] Performed By: #### 5 7021-8 ####LERNER LABORATORYCLIA [id number] [place] [address] [place] Nucleated RBC/100 WBC (Bld) [Ratio] 0.0 /100 WBC Normal [facility] Comment on above: Order Comment: Speci men Type: BLOOD SPECIMENOrdering Facility: [facility] Address: [address] [place] [address] Performed By: #### 5 7021-8 ####LERNER LABORATORYCLIA [id number] [place] [address] [place] Platelet mean volume (Bld) [Entitic vol] 10.1 fL Normal 9.0-12.7 [facility] Comment on above: Order Comment: Speci men Type: BLOOD SPECIMENOrdering Facility: [facility] Address: [address] [place] [address] Performed By: #### 5 7021-8 ####LERNER LABORATORYCLIA [id number] [place] [address] [place] Platelets (Bld) [#/Vol] 194 10*3/uL Normal 150-400 [facility] Comment on above: Order Comment: Speci men Type: BLOOD SPECIMENOrdering Facility: [facility] Address: [address] [place] [address] Performed By: #### 5 7021-8 ####[facility] LABORATORYCLIA [id number] [address] [place] RBC (Bld) [#/Vol] 4.57 10*6/uL Normal 4.20-6.00 [facility] Comment on above: Order Comment: Speci men Type: BLOOD SPECIMENOrdering Facility: [facility] Address: [address] [place] [address] Performed By: #### 5 7021-8 ####[facility] LABORATORYCLIA [id number] [address] [facility] WBC (Bld) [#/Vol] 8.89 10*3/uL Normal 3.70-11.00 [facility] Comment on above: Order Comment: Speci men Type: BLOOD SPECIMENOrdering Facility: [facility] Address: [address] [place] [address] Performed By: #### 5 7021-8 ####[facility] LABORATORYCLIA [id number] [address] [place] CONSULT [facility]OGon 06-04-20[facility] Magnesium SerPl-mCncon 06-04 Magnesium [Mass/Vol] 2.1 mg/dL Normal 1.7-2.3 [facility] Comment on above: Order Comment: Speci men Type: BLOOD SPECIMENOrdering Facility: [facility] Address: [address] [place] [address] Performed By: #### 1 9123-9, 12732-6 ####[facility] LABORATORYCLIA [id number] [address] [place] ALLIED HEALTHon 06-03-2024 ALLIED HEALTH [facility] CASE MANAGEMon 06-03-2024 CASE MANAGEM Normal [facility] CONSULT PROGon 06-03-2024 [facility] CREATININE BLDon 06-03-2024 Creatinine [Mass/Vol] 1.02 mg/dL Normal 0.73-1.22 [facility] Comment on above: Order Comment: Raudel carrillo Type: BLOOD SPECIMENOrdering Facility: [facility] Address: [address] [place] [address] Performed By: #### C RET1 ####LERNER LABORATORYCLIA [id number] [place] [id number] [facility] Creatinine and Glomerular filtration rate.predicted panel (S/P/Bld) 81 mL/min/1.73m??? Normal >=60 [facility] Comment on above: Order Comment: Raudel carrillo Type: BLOOD SPECIMENOrdering Facility: [facility] Address: [address] [place] [address] Result Comment: Sachi mated Glomerular Filtration Rate [...] actual GFR. Performed By: #### C RET1 ####LERNER LABORATORYCLIA [id number] [place] [id number] [place] THERAPY NTon 06-03-2024 THERAPY NT [facility] THERAPY NT [facility] US PSEUDOANEURYSMon 06-03-20 24 US PSEUDOANEURYSM Normal [facility] ANES POSTPROC EVALon 024 ANES POSTPROC EVAL HNO ID: [id number] Author: NOBLE CORNEJO MD Service: Anesthesiology Author Type: Anesthesiologist Type: Anesthesia Postprocedure Evaluation Filed: 06/02/2024 21:57 Note Text: POST ANESTHESIA EVALUATION NOTE : 1955 Procedure Summary Date: 06/02/24 Room / Location: [place] Anesthesia Start: 1442 Anesthesia Stop: 1645 Procedure: ANGIOGRAM EXTREMITY LOWER; BALLOON ANGIOPLASTY OF SFA (Left: Leg lower ) Diagnosis: Stenosis of superficial femoral artery (HCC) PAD (peripheral artery disease) (HCC) Osteomyelitis of great toe of left foot (HCC) (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]) (PAD (peripheral artery disease) ([facility]) [I73.9]) (Osteomyelitis of great toe of left foot ([facility]) [M86.9]) Surgeons: Marsha Lucas DO Responsible Provider: [...] June 02, 2024 TIME: 9:57 PM CSN: [id number] Normal [facility] ANES PRE-OPon 06-02-2024 ANES PRE-OP HNO ID: [id number] Author: MONTY WYATT MD Service: Anesthesiology Author Type: Anesthesiologist Type: Anesthesia Preprocedure Evaluation Filed: 06/02/2024 14:32 Note Text: ANESTHESIOLOGY DAY OF SURGERY NOTE : 1955 Procedure Information Date/Time: 06/02/24 1400 Procedure: ANGIOGRAM EXTREMITY LOWER (Left: Leg lower ) Location: [place] OR / [place] Surgeons: Marsha Lucas DO Estimated body mass index is 38.87 kg/m? as calculated from the following: Height as of 05/23/24: 180.3 cm (5' 11"). Weight as of 06/01/24: 126.4 kg (278 lb 10.6 oz). Most recent hematocrit and potassium results: Hematocrit 42.4 06/02/2024 Potassium 4.2 06/02/2024 Other history: Transfer from [facility] today for vascular procedure SP left foot [...] artery disease) (+) PAD (peripheral artery disease) ([facility]) (+) Primary hypertension ENDO (+) Type 2 diabetes mellitus (HCC) NEURO-PSYCH (+) History of DVT (deep vein thrombosis) (+) History of lung cancer PULMONARY (+) COPD (chronic obstructive pulmonary disease) ([facility]) (+) KAILEE (obstructive sleep apnea) Other (+) Osteomyelitis of great toe of left foot ([facility]) I - PHYSICAL EVALUATION AIRWAY [...] and consent discussed: yes. Patient / Responsible [employer] agrees to proceed: yes Patient / Surrogate [...] on Transfer - (more content not included)... Normal [facility] BRIEF OP NOTon 06-02-2024 BRIEF OP NOT HNO ID: [id number] Author: MARSHA LUCAS DO Service: General Surgery Author Type: Resident Type: Brief Op Note Filed: 06/06/2024 10:58 Note Text: Attestation signed by Marsha Lucas DO at 06/06/2024 10:58 AM Marsha Lucas DO BRIEF OPERATIVE / PROCEDURE NOTE LOG ID: [id number] Surgery/Procedure Date: 06/02/2024 Incision/Procedure Start Time: 3:06 PM Incision Close/Procedure End Time: 4:42 PM Surgeon(s)/Procedural ist(s) and Site Supervising Technical Operator(s): Surgeons and Role: * Marsha Lucas DO - Primary * Christina Rahman DO - Resident - Assisting [employer] Obiee Developer: Molly Espinoza SA Procedure(s): Procedure(s): ANGIOGRAM EXTREMITY [...] 2.5 mg Xarelto BID upon return to [facility] Radiation - 575 mGy, 10.5 min Contrast [...] and on weekends, please page surgery on-call [phone] (RNF) or [phone] (ICU) SIGNATURE: Christina Rahman DO PATIENT NAME: Mitul Oakes DATE: June 02, 2024 TIME: 5:07 PM PAGER/CONTACT #: [phone] Normal [facility] Basic metabolic 2000 panelon 06-02-2024 Anion gap [Moles/Vol] 11 mmol/L Normal 8-15 [facility] Comment on above: Order Comment: Speci men Type: BLOOD SPECIMENOrdering Facility: [facility] Address: [address] [place] [address] Performed By: #### 2 4320-2, ####LERNER LABORATORYCLIA [id number] [place] [address] [place] Calcium [Mass/Vol] 9.2 mg/dL Normal 8.5-10.2 [facility] Comment on above: Order Comment: Speci men Type: BLOOD SPECIMENOrdering Facility: [facility] Address: [address] [place] [address] Performed By: #### 2 432-2, ####LERNER LABORATORYCLIA [id number] [place] [id number] [place] Chloride [Moles/Vol] 103 mmol/L Normal 98-107 [facility] Comment on above: Order Comment: Speci men Type: BLOOD SPECIMENOrdering Facility: [facility] Address: [address] [place] [address] Performed By: #### 2 432-2, ####LERNER LABORATORYCLIA [id number] [place] [address] [place] CO2 [Moles/Vol] 28 mmol/L Normal 22-30 [facility] Comment on above: Order Comment: Raudel carrillo Type: BLOOD SPECIMENOrdering Facility: [facility] Address: [address] [place] [address] Performed By: #### 2 4321-2, ####[facility] LABORATORYCLIA [id number] [place] [id number] [place] Creatinine [Mass/Vol] 1.23 mg/dL High 0.73-1.22 [facility] Comment on above: Order Comment: Raudel carrillo Type: BLOOD SPECIMENOrdering Facility: [facility] Address: [address] [place] [address] Performed By: #### 2 4321-2, ####LERNER LABORATORYCLIA [id number] [place] [id number] [facility] Creatinine and Glomerular filtration rate.predicted panel (S/P/Bld) 64 mL/min/1.73m??? Normal >=60 [facility] Comment on above: Order Comment: Raudel carrillo Type: BLOOD SPECIMENOrdering Facility: [facility] Address: [address] [place] [address] Result Comment: Sachi mated Glomerular Filtration Rate [...] actual GFR. Performed By: #### 2 4321-2, ####[facility] LABORATORYCLIA [id number] [place] [id number] [place] Glucose [Mass/Vol] 173 mg/dL High 74-99 [facility] Comment on above: Order Comment: Raudel lorena Type: BLOOD SPECIMENOrdering Facility: [facility] Address: [address] [place] [address] Result Comment: The [place] [employer] (ADA) provides guidance for cutoff [...] Standards of Medical Care in Diabetes 2016, [place] [employer]. Diabetes Care. 2016.39(Suppl 1). Performed By: #### 2 4320-07, ####LERNER LABORATORYCLIA [id number] [address] [place] [address] [facility] Potassium [Moles/Vol] 4.2 mmol/L Normal 3.7-5.1 [facility] Comment on above: Order Comment: Raudel carrillo Type: BLOOD SPECIMENOrdering Facility: [facility] Address: [address] [place] [address] Performed By: #### 2 4320-07, ####LERNER LABORATORYCLIA [id number] [address] Sodium [Moles/Vol] 142 mmol/L Normal 136-144 [facility] Comment on above: Order Comment: Raudel carrillo Type: BLOOD SPECIMENOrdering Facility: [facility] Address: [address] [place] [address] Performed By: #### 2 4320-07, ####LERNER LABORATORYCLIA [id number] [address] Urea nitrogen [Mass/Vol] 17 mg/dL Normal 9-24 [facility] Comment on above: Order Comment: Raudel carrillo Type: BLOOD SPECIMENOrdering Facility: [facility] Address: [address] [place] [address] Performed By: #### 2 4320-07, ####LERNER LABORATORYCLIA [id number] [address] CBC W Auto Differential pane l (Bld)on 06-02-2024 Basophils (Bld) [#/Vol] 0.09 10*3/uL Normal <0.11 [facility] Comment on above: Order Comment: Speci men Type: BLOOD SPECIMENOrdering Facility: [facility] Address: [address] [place] [address] Performed By: #### 5 7021-8 ####LERNER LABORATORYCLIA [id number] [place] [address] [place] Basophils/100 WBC (Bld) 1.1 % Normal [facility] Comment on above: Order Comment: Speci men Type: BLOOD SPECIMENOrdering Facility: [facility] Address: [address] [place] [address] Performed By: #### 5 7021-8 ####LERNER LABORATORYCLIA [id number] [place] [address] [place] Differential cell count method Nom (Bld) Auto Normal [facility] Comment on above: Order Comment: Speci men Type: BLOOD SPECIMENOrdering Facility: [facility] Address: [address] [place] [address] Performed By: #### 5 7021-8 ####LERNER LABORATORYCLIA [id number] [place] [address] [place] Eosinophils (Bld) [#/Vol] 0.35 10*3/uL Normal <0.46 [facility] Comment on above: Order Comment: Speci men Type: BLOOD SPECIMENOrdering Facility: [facility] Address: [address] [place] [address] Performed By: #### 5 7021-8 ####LERNER LABORATORYCLIA [id number] [place] [address] [place] Eosinophils/100 WBC (Bld) 4.2 % Normal [facility] Comment on above: Order Comment: Speci men Type: BLOOD SPECIMENOrdering Facility: [facility] Address: [address] [place] [address] Performed By: #### 5 7021-8 ####LERNER LABORATORYCLIA [id number] [place] [address] [place] Erythrocyte distribution width (RBC) [Ratio] 15.8 % High 11.5-15.0 [facility] Comment on above: Order Comment: Speci men Type: BLOOD SPECIMENOrdering Facility: [facility] Address: [address] [place] [address] Performed By: #### 5 7021-8 ####LERNER LABORATORYCLIA [id number] [place] [address] [place] Hematocrit (Bld) [Volume fraction] 42.4 % Normal 39.0-51.0 [facility] Comment on above: Order Comment: Speci men Type: BLOOD SPECIMENOrdering Facility: [facility] Address: [address] [place] [address] Performed By: #### 5 7021-8 ####LERNER LABORATORYCLIA [id number] [place] [address] [place] Hemoglobin (Bld) [Mass/Vol] 13.2 g/dL Normal 13.0-17.0 [facility] Comment on above: Order Comment: Speci men Type: BLOOD SPECIMENOrdering Facility: [facility] Address: [address] [place] [address] Performed By: #### 5 7021-8 ####LERNER LABORATORYCLIA [id number] [place] [address] [place] Immature granulocytes (Bld) [#/Vol] 0.05 10*3/uL Normal <0.10 [facility] Comment on above: Order Comment: Speci men Type: BLOOD SPECIMENOrdering Facility: [facility] Address: [address] [place] [address] Performed By: #### 5 7021-8 ####LERNER LABORATORYCLIA [id number] [place] [address] [place] Immature granulocytes/100 WBC (Bld) 0.6 % Normal [facility] Comment on above: Order Comment: Speci men Type: BLOOD SPECIMENOrdering Facility: [facility] Address: [address] [place] [address] Performed By: #### 5 7021-8 ####LERNER LABORATORYCLIA [id number] [place] [address] [place] Lymphocytes (Bld) [#/Vol] 1.62 10*3/uL Normal 1.00-4.00 [facility] Comment on above: Order Comment: Speci men Type: BLOOD SPECIMENOrdering Facility: [facility] Address: [address] [place] [address] Performed By: #### 5 7021-8 ####LERNER LABORATORYCLIA [id number] [address] Lymphocytes/100 WBC (Bld) 19.5 % Normal [facility] Comment on above: Order Comment: Speci men Type: BLOOD SPECIMENOrdering Facility: [facility] Address: [address] [place] [address] Performed By: #### 5 7021-8 ####LERNER LABORATORYCLIA [id number] [address] MCH (RBC) [Entitic mass] 28.1 pg Normal 26.0-34.0 [facility] Comment on above: Order Comment: Speci men Type: BLOOD SPECIMENOrdering Facility: [facility] Address: [address] [place] [address] Performed By: #### 5 7021-8 ####LERNER LABORATORYCLIA [id number] [address] [place] MCHC (RBC) [Mass/Vol] 31.1 g/dL Normal 30.5-36.0 [facility] Comment on above: Order Comment: Speci men Type: BLOOD SPECIMENOrdering Facility: [facility] Address: [address] [place] [address] Performed By: #### 5 7021-8 ####LERNER LABORATORYCLIA [id number] [address] STATES [facility] MCV (RBC) [Entitic vol] 90.4 fL Normal 80.0-100.0 [facility] Comment on above: Order Comment: Speci men Type: BLOOD SPECIMENOrdering Facility: [facility] Address: [address] [place] [address] Performed By: #### 5 7021-8 ####LERNER LABORATORYCLIA [id number] [address] [place] Monocytes (Bld) [#/Vol] 0.83 10*3/uL Normal <0.87 [facility] Comment on above: Order Comment: Speci men Type: BLOOD SPECIMENOrdering Facility: [facility] Address: [address] [place] [address] Performed By: #### 5 7021-8 ####LERNER LABORATORYCLIA [id number] [place] [address] [place] Monocytes/100 WBC (Bld) 10.0 % Normal [facility] Comment on above: Order Comment: Speci men Type: BLOOD SPECIMENOrdering Facility: [facility] Address: [address] [place] [address] Performed By: #### 5 7021-8 ####LERNER LABORATORYCLIA [id number] [place] [address] [place] Neutrophils (Bld) [#/Vol] 5.35 10*3/uL Normal 1.45-7.50 [facility] Comment on above: Order Comment: Speci men Type: BLOOD SPECIMENOrdering Facility: [facility] Address: [address] [place] [address] Performed By: #### 5 7021-8 ####LERNER LABORATORYCLIA [id number] [place] [address] [place] Neutrophils/100 WBC (Bld) 64.6 % Normal [facility] Comment on above: Order Comment: Speci men Type: BLOOD SPECIMENOrdering Facility: [facility] Address: [address] [place] [address] Performed By: #### 5 7021-8 ####LERNER LABORATORYCLIA [id number] [place] [address] [place] Nucleated RBC (Bld) [#/Vol] 10*3/uL Normal <0.01 [facility] Comment on above: Order Comment: Speci men Type: BLOOD SPECIMENOrdering Facility: [facility] Address: [address] [place] [address] Performed By: #### 5 7021-8 ####LERNER LABORATORYCLIA [id number] [place] [address] [place] Nucleated RBC/100 WBC (Bld) [Ratio] 0.0 /100 WBC Normal [facility] Comment on above: Order Comment: Speci men Type: BLOOD SPECIMENOrdering Facility: [facility] Address: [address] [place] [address] Performed By: #### 5 7021-8 ####LERNER LABORATORYCLIA [id number] [place] [address] [place] Platelet mean volume (Bld) [Entitic vol] 9.9 fL Normal 9.0-12.7 [facility] Comment on above: Order Comment: Speci men Type: BLOOD SPECIMENOrdering Facility: [facility] Address: [address] [place] [address] Performed By: #### 5 7021-8 ####LERNER LABORATORYCLIA [id number] [place] [address] [place] Platelets (Bld) [#/Vol] 208 10*3/uL Normal 150-400 [facility] Comment on above: Order Comment: Speci men Type: BLOOD SPECIMENOrdering Facility: [facility] Address: [address] [place] [address] Performed By: #### 5 7021-8 ####LERNER LABORATORYCLIA [id number] [place] [address] [place] RBC (Bld) [#/Vol] 4.69 10*6/uL Normal 4.20-6.00 [facility] Comment on above: Order Comment: Speci men Type: BLOOD SPECIMENOrdering Facility: [facility] Address: [address] [place] [address] Performed By: #### 5 7021-8 ####LERNER LABORATORYCLIA [id number] [place] [address] [place] WBC (Bld) [#/Vol] 8.29 10*3/uL Normal 3.70-11.00 [facility] Comment on above: Order Comment: Speci men Type: BLOOD SPECIMENOrdering Facility: [facility] Address: [address] [place] [address] Performed By: #### 5 7021-8 ####LERNER LABORATORYCLIA [id number] [place] [address] [place] CNDSon 06-02-2024 CNDS HNO ID: [id number] Author: MARSHA LUCAS DO Service: General Surgery Author Type: Resident Type: Discharge Summary Filed: 06/06/2024 09:38 Note Text: Attestation signed by Marsha Lucas DO at 06/06/2024 9:38 AM Marsha Lucas DO DISCHARGE NOTE (Patient Admitted Less than 48 Hours) SERVICE DATE: 06/02/2024 SERVICE TIME: 10:59 PM ADMISSION DATE: 06/02/2024 Discharge date:06/03/24 DISCHARGE DISPOSITION: [facility] GENERAL: resting comfortably, in no acute distress [...] 80 mg tablet Commonly known as: LIPITOR htpmueqlex-tlpgbiiv-g ormoterol 160-9-4.8 mcg/actuation HFA aerosol inhaler Commonly known as: BREZTRI buPROPion XL 150 mg 24 hr tablet Commonly known as: WELLBUTRIN XL COREG 25 mg tablet Generic drug: carvedilol Fish OiL 1,000 mg Cap Generic drug: [place]-3 Fatty Acids-Vitamin E insulin glargine-yfgn 100 unit/mL [...] Hospital Problems as of 06/02/2024 Noted - [facility] * (Principal) PAD (peripheral artery disease) (HCC) 05/24/2024 - Present Yes No notes have been filed under this hospital service. Service: General Surgery Morbid Obesity Class 3 SIGNATURE: Millie Anderson DO PATIENT NAME: Mitul Oakes DATE: June 02, 2024 TIME: 10:59 PM PAGER: [phone] [facility] CONSULT PROGon 06-02-2024 CONSULT PROG [facility] HISTORY PHYSICALon HISTORY PHYSICAL HNO ID: [id number] Author: MARSHA LUCAS DO Service: General Surgery [...] June 02, 2024 TIME: 1:50 PM Normal [facility] Magnesium SerPl-mCncon 06-02 Magnesium [Mass/Vol] 2.2 mg/dL Normal 1.7-2.3 [facility] Comment on above: Order Comment: Speci men Type: BLOOD SPECIMENOrdering Facility: [facility] Address: [address] [place] [address] Performed By: #### 2 4321-2, 92115-8 ####[facility] LABORATORYCLIA [id number] [place] [address] [place] OPERATIVE NOon 06-02-2024 OPERATIVE NO HNO ID: [id number] Author: MARSHA LUCAS DO Service: Vascular Surgery Author Type: Physician Type: Operative Report Filed: 06/03/2024 13:37 Note Text: OPERATIVE/PROCEDURE REPORT LOG ID: [id number] Surgery/Procedure Date: 06/02/2024 Incision/Procedure Start Time: 3:06 PM Incision Close/Procedure End Time: 4:42 PM Surgeon(s)/Procedural ist(s) and Site Supervising Technical Operator(s): Surgeons and Role: * Marsha Lucas DO [...] needle within the vessel was documented. A 5-Sinhala sheath was exchanged over a glidewire into the SALES AND SERVICE TECHNICIAN and an omniflush catheter was advanced into [...] I/primary surgeon/proceduralist performed the procedure with assistance. Marsha Lucas DO Normal [facility] Vancomycin [place] SerPl-mCncon 06-02-2024 Vancomycin random [Mass/Vol] 16.9 ug/mL Normal 10.0-20.0 [facility] Comment on above: Order Comment: Speci men Type: BLOOD SPECIMENOrdering Facility: [facility] Address: [address] [place] [address] Result Comment: Refe rence ranges and high/low indicator flags are provided as general guidelines only. The treating physician must determine appropriate target levels/dosing based on the specific clinical situation. Performed By: #### 4 091-5 ####[facility] LABORATORYCLIA [id number] [place] [address] [place] Basic metabolic 2000 panelon 06-01-2024 Anion gap [Moles/Vol] 9 mmol/L Normal 8-15 [facility] Comment on above: Order Comment: Speci men Type: BLOOD SPECIMENOrdering Facility: [facility] Address: [address] [place] [address] Performed By: #### 2 4321-2, ####[facility] LABORATORYCLIA [id number] [place] [address] [place] Calcium [Mass/Vol] 9.3 mg/dL Normal 8.5-10.2 [facility] Comment on above: Order Comment: Speci men Type: BLOOD SPECIMENOrdering Facility: [facility] Address: [address] [place] [address] Performed By: #### 2 4321-2, ####[facility] LABORATORYCLIA [id number] [place] [id number] [place] Chloride [Moles/Vol] 106 mmol/L Normal 98-107 [facility] Comment on above: Order Comment: Speci men Type: BLOOD SPECIMENOrdering Facility: [facility] Address: [address] [place], [place] [address] [address] Performed By: #### 2 4321-2, ####[facility] LABORATORYCLIA [id number] [place] [id number] [place] CO2 [Moles/Vol] 29 mmol/L Normal 22-30 [facility] Comment on above: Order Comment: Raudel carrillo Type: BLOOD SPECIMENOrdering Facility: [facility] Address: [address] [place] [address] Performed By: #### 2 432-2, ####LERNER LABORATORYCLIA [id number] [place] [address] [place] Creatinine [Mass/Vol] 1.11 mg/dL Normal 0.73-1.22 [facility] Comment on above: Order Comment: Raudel carrillo Type: BLOOD SPECIMENOrdering Facility: [facility] Address: [address] [place] [address] Performed By: #### 2 432-2, ####LERNER LABORATORYCLIA [id number] [place] [id number] [place] Creatinine and Glomerular filtration rate.predicted panel (S/P/Bld) 73 mL/min/1.73m??? Normal >=60 [facility] Comment on above: Order Comment: Raudel carrillo Type: BLOOD SPECIMENOrdering Facility: [facility] Address: [address] [place] [address] Result Comment: Sachi mated Glomerular Filtration Rate [...] Performed By: #### 2 4321-2, ####LERNER LABORATORYCLIA [id number] [place] [address] [place] Glucose [Mass/Vol] 150 mg/dL High 74-99 [facility] Comment on above: Order Comment: Payalalejandro carrillo Type: BLOOD SPECIMENOrdering Facility: [facility] Address: [address] [place] [address] Result Comment: The [place] Diabetes Association (ADA) provides guidance for cutoff [...] Standards of Medical Care in Diabetes 2016, [place] [employer]. Diabetes Care. 2016.39(Suppl 1). Performed By: #### 2 4320-07, ####LERNER LABORATORYCLIA [id number] [place] [address] [place] Potassium [Moles/Vol] 4.1 mmol/L Normal 3.7-5.1 [facility] Comment on above: Order Comment: Raudel carrillo Type: BLOOD SPECIMENOrdering Facility: [facility] Address: [address] [place] [address] Performed By: #### 2 4320-07, ####LERNER LABORATORYCLIA [id number] [address] STATES OF [facility] Sodium [Moles/Vol] 144 mmol/L Normal 136-144 [facility] Comment on above: Order Comment: Raudel carrillo Type: BLOOD SPECIMENOrdering Facility: [facility] Address: [address] [place] [address] Performed By: #### 2 4320-07, ####LERNER LABORATORYCLIA [id number] [address] STATES [facility] Urea nitrogen [Mass/Vol] 14 mg/dL Normal 9-24 [facility] Comment on above: Order Comment: Raudel carrillo Type: BLOOD SPECIMENOrdering Facility: [facility] Address: [address] [place] [address] Performed By: #### 2 4320-07, ####LERNER LABORATORYCLIA [id number] [address] [place] CBC W Auto Differential pane l (Bld)on 06-01-2024 Basophils (Bld) [#/Vol] 0.08 10*3/uL Normal <0.11 [facility] Comment on above: Order Comment: Speci men Type: BLOOD SPECIMENOrdering Facility: [facility] Address: [address] [place] [address] Performed By: #### 5 7021-8 ####LERNER LABORATORYCLIA [id number] [place] [address] [place] Basophils/100 WBC (Bld) 1.0 % Normal [facility] Comment on above: Order Comment: Speci men Type: BLOOD SPECIMENOrdering Facility: [facility] Address: [address] [place] [address] Performed By: #### 5 7021-8 ####LERNER LABORATORYCLIA [id number] [place] [address] [place] Differential cell count method Nom (Bld) Auto Normal [facility] Comment on above: Order Comment: Speci men Type: BLOOD SPECIMENOrdering Facility: [facility] Address: [address] [place] [address] Performed By: #### 5 7021-8 ####LERNER LABORATORYCLIA [id number] [place] [address] [place] Eosinophils (Bld) [#/Vol] 0.36 10*3/uL Normal <0.46 [facility] Comment on above: Order Comment: Speci men Type: BLOOD SPECIMENOrdering Facility: [facility] Address: [address] [place] [address] Performed By: #### 5 7021-8 ####LERNER LABORATORYCLIA [id number] [place] [address] [place] Eosinophils/100 WBC (Bld) 4.3 % Normal [facility] Comment on above: Order Comment: Speci men Type: BLOOD SPECIMENOrdering Facility: [facility] Address: [address] [place] [address] Performed By: #### 5 7021-8 ####LERNER LABORATORYCLIA [id number] [place] [address] [place] Erythrocyte distribution width (RBC) [Ratio] 15.9 % High 11.5-15.0 [facility] Comment on above: Order Comment: Speci men Type: BLOOD SPECIMENOrdering Facility: [facility] Address: [address] [place] [address] Performed By: #### 5 7021-8 ####LERNER LABORATORYCLIA [id number] [place] [address] [place] Hematocrit (Bld) [Volume fraction] 42.9 % Normal 39.0-51.0 [facility] Comment on above: Order Comment: Speci men Type: BLOOD SPECIMENOrdering Facility: [facility] Address: [address] [place] [address] Performed By: #### 5 7021-8 ####LERNER LABORATORYCLIA [id number] [place] [address] [place] Hemoglobin (Bld) [Mass/Vol] 13.2 g/dL Normal 13.0-17.0 [facility] Comment on above: Order Comment: Speci men Type: BLOOD SPECIMENOrdering Facility: [facility] Address: [address] [place] [address] Performed By: #### 5 7021-8 ####LERNER LABORATORYCLIA [id number] [place] [address] [place] Immature granulocytes (Bld) [#/Vol] 0.05 10*3/uL Normal <0.10 [facility] Comment on above: Order Comment: Speci men Type: BLOOD SPECIMENOrdering Facility: [facility] Address: [address] [place] [address] Performed By: #### 5 7021-8 ####LERNER LABORATORYCLIA [id number] [place] [address] [place] Immature granulocytes/100 WBC (Bld) 0.6 % Normal [facility] Comment on above: Order Comment: Speci men Type: BLOOD SPECIMENOrdering Facility: [facility] Address: [address] [place] [address] Performed By: #### 5 7021-8 ####LERNER LABORATORYCLIA [id number] [place] [address] [place] Lymphocytes (Bld) [#/Vol] 1.52 10*3/uL Normal 1.00-4.00 [facility] Comment on above: Order Comment: Speci men Type: BLOOD SPECIMENOrdering Facility: [facility] Address: [address] [place] [address] Performed By: #### 5 7021-8 ####LERNER LABORATORYCLIA [id number] [address] Lymphocytes/100 WBC (Bld) 18.2 % Normal [facility] Comment on above: Order Comment: Speci men Type: BLOOD SPECIMENOrdering Facility: [facility] Address: [address] [place] [address] Performed By: #### 5 7021-8 ####LERNER LABORATORYCLIA [id number] [address] STATES [facility] MCH (RBC) [Entitic mass] 27.8 pg Normal 26.0-34.0 [facility] Comment on above: Order Comment: Speci men Type: BLOOD SPECIMENOrdering Facility: [facility] Address: [address] [place] [address] Performed By: #### 5 7021-8 ####LERNER LABORATORYCLIA [id number] [address] [place] MCHC (RBC) [Mass/Vol] 30.8 g/dL Normal 30.5-36.0 [facility] Comment on above: Order Comment: Speci men Type: BLOOD SPECIMENOrdering Facility: [facility] Address: [address] [place] [address] Performed By: #### 5 7021-8 ####LERNER LABORATORYCLIA [id number] [address] [place] MCV (RBC) [Entitic vol] 90.5 fL Normal 80.0-100.0 [facility] Comment on above: Order Comment: Speci men Type: BLOOD SPECIMENOrdering Facility: [facility] Address: [address] [place] [address] Performed By: #### 5 7021-8 ####LERNER LABORATORYCLIA [id number] [address] [place] Monocytes (Bld) [#/Vol] 0.99 10*3/uL High <0.87 [facility] Comment on above: Order Comment: Speci men Type: BLOOD SPECIMENOrdering Facility: [facility] Address: [address] [place] [address] Performed By: #### 5 7021-8 ####LERNER LABORATORYCLIA [id number] [place] [address] [place] Monocytes/100 WBC (Bld) 11.8 % Normal [facility] Comment on above: Order Comment: Speci men Type: BLOOD SPECIMENOrdering Facility: [facility] Address: [address] [place] [address] Performed By: #### 5 7021-8 ####LERNER LABORATORYCLIA [id number] [place] [address] [place] Neutrophils (Bld) [#/Vol] 5.36 10*3/uL Normal 1.45-7.50 [facility] Comment on above: Order Comment: Speci men Type: BLOOD SPECIMENOrdering Facility: [facility] Address: [address] [place] [address] Performed By: #### 5 7021-8 ####LERNER LABORATORYCLIA [id number] [address] [place] Neutrophils/100 WBC (Bld) 64.1 % Normal [facility] Comment on above: Order Comment: Speci men Type: BLOOD SPECIMENOrdering Facility: [facility] Address: [address] [place] [address] Performed By: #### 5 7021-8 ####LERNER LABORATORYCLIA [id number] [place] [address] [place] Nucleated RBC (Bld) [#/Vol] 10*3/uL Normal <0.01 [facility] Comment on above: Order Comment: Speci men Type: BLOOD SPECIMENOrdering Facility: [facility] Address: [address] [place] [address] Performed By: #### 5 7021-8 ####LERNER LABORATORYCLIA [id number] [place] [address] [place] Nucleated RBC/100 WBC (Bld) [Ratio] 0.0 /100 WBC Normal [facility] Comment on above: Order Comment: Speci men Type: BLOOD SPECIMENOrdering Facility: [facility] Address: [facility] [place] [address] Performed By: #### 5 7021-8 ####LERNER LABORATORYCLIA [id number] [place] [address] [place] Platelet mean volume (Bld) [Entitic vol] 9.7 fL Normal 9.0-12.7 [facility] Comment on above: Order Comment: Speci men Type: BLOOD SPECIMENOrdering Facility: [facility] Address: [address] [place] [address] Performed By: #### 5 7021-8 ####LERNER LABORATORYCLIA [id number] [place] [address] [place] Platelets (Bld) [#/Vol] 226 10*3/uL Normal 150-400 [facility] Comment on above: Order Comment: Speci men Type: BLOOD SPECIMENOrdering Facility: [facility] Address: [address] [place] [address] Performed By: #### 5 7021-8 ####LERNER LABORATORYCLIA [id number] [place] [address] [place] RBC (Bld) [#/Vol] 4.74 10*6/uL Normal 4.20-6.00 [facility] Comment on above: Order Comment: Speci men Type: BLOOD SPECIMENOrdering Facility: [facility] Address: [address] [place] [address] Performed By: #### 5 7021-8 ####LERNER LABORATORYCLIA [id number] [place] [id number] [place] WBC (Bld) [#/Vol] 8.36 10*3/uL Normal 3.70-11.00 [facility] Comment on above: Order Comment: Speci men Type: BLOOD SPECIMENOrdering Facility: [facility] Address: [address] [place] [address] Performed By: #### 5 7021-8 ####LERNER LABORATORYCLIA [id number] [place] [address] [place] CONSULT PROGon 06-01-2024 CONSULT PROG Normal [facility] Magnesium SerPl-mCncon 06-01 Magnesium [Mass/Vol] 2.2 mg/dL Normal 1.7-2.3 [facility] Comment on above: Order Comment: Speci men Type: BLOOD SPECIMENOrdering Facility: [facility] Address: [address] [place] [address] Performed By: #### 2 4321-2, 70980-7 ####LERNER LABORATORYCLIA [id number] [place] [address] [place] Basic metabolic 2000 panelon 05-31-2024 Anion gap [Moles/Vol] 9 mmol/L Normal 8-15 [facility] Comment on above: Order Comment: Speci men Type: BLOOD SPECIMENOrdering Facility: [facility] Address: [address] [place] [address] Performed By: #### 2 4321-2 ####[facility] LABORATORYCLIA [id number] [place] [address] [place] Calcium [Mass/Vol] 9.1 mg/dL Normal 8.5-10.2 [facility] Comment on above: Order Comment: Speci men Type: BLOOD SPECIMENOrdering Facility: [facility] Address: [address] [place] [address] Performed By: #### 2 4321-2 ####[facility] LABORATORYCLIA [id number] [place] [id number] [place] Chloride [Moles/Vol] 103 mmol/L Normal 98-107 [facility] Comment on above: Order Comment: Speci men Type: BLOOD SPECIMENOrdering Facility: [facility] Address: [address] [place] [address] Performed By: #### 2 4321-2 ####LERNER LABORATORYCLIA [id number] [place] [address] [place] CO2 [Moles/Vol] 31 mmol/L High 22-30 [facility] Comment on above: Order Comment: Speci men Type: BLOOD SPECIMENOrdering Facility: [facility] Address: [address] [place], [place] [address] [address] Performed By: #### 2 4321-2 ####[facility] LABORATORYCLIA [id number] [place] [address] [place] Creatinine [Mass/Vol] 1.15 mg/dL Normal 0.73-1.22 [facility] Comment on above: Order Comment: [facility] Type: BLOOD SPECIMENOrdering Facility: [facility] Address: [address] [place] [address] Performed By: #### 2 4321-2 ####[facility] LABORATORYCLIA [id number] [address] Creatinine and Glomerular filtration rate.predicted panel (S/P/Bld) 70 mL/min/1.73m??? Normal >=60 [facility] Comment on above: Order Comment: Raudel carrillo Type: BLOOD SPECIMENOrdering Facility: [facility] Address: [address] [place] [address] Result Comment: Sachi mated Glomerular Filtration Rate [...] actual GFR. Performed By: #### 2 4321-2 ####[facility] LABORATORYCLIA [id number] [place] [id number] [place] Glucose [Mass/Vol] 142 mg/dL High 74-99 [facility] Comment on above: Order Comment: Raudel carrillo Type: BLOOD SPECIMENOrdering Facility: [facility] Address: [address] [place] [address] Result Comment: The [place] Diabetes Association (ADA) provides guidance for cutoff [...] Standards of Medical Care in Diabetes 2016, [place] [employer]. Diabetes Care. 2016.39(Suppl 1). Performed By: #### 2 4321-2 ####LERNER LABORATORYCLIA [id number] [place] [address] [place] Potassium [Moles/Vol] 4.3 mmol/L Normal 3.7-5.1 [facility] Comment on above: Order Comment: Speci men Type: BLOOD SPECIMENOrdering Facility: [facility] Address: [address] [place] [address] Performed By: #### 2 4321-2 ####LERNER LABORATORYCLIA [id number] [place] [address] [place] Sodium [Moles/Vol] 143 mmol/L Normal 136-144 [facility] Comment on above: Order Comment: Speci men Type: BLOOD SPECIMENOrdering Facility: [facility] Address: [address] [place] [address] Performed By: #### 2 4321-2 ####LERNER LABORATORYCLIA [id number] [place] [address] [place] Urea nitrogen [Mass/Vol] 14 mg/dL Normal 9-24 [facility] Comment on above: Order Comment: Speci men Type: BLOOD SPECIMENOrdering Facility: [facility] Address: [address] [place] [address] Performed By: #### 2 4321-2 ####LERNER LABORATORYCLIA [id number] [place] [address] [place] CONSULT PROGon 05-31-2024 CONSULT PROG Normal [facility] CONSULT PROG Normal [facility] Vancomycin [place] SerPl-mCncon 05-31-2024 Vancomycin random [Mass/Vol] 21.9 ug/mL High 10.0-20.0 [facility] Comment on above: Order Comment: Speci men Type: BLOOD SPECIMENOrdering Facility: [facility] Address: [address] [place] [address] Result Comment: Refe rence ranges and high/low indicator flags are provided as general guidelines only. The treating physician must determine appropriate target levels/dosing based on the specific clinical situation. Performed By: #### 4 091-5 ####LERNER LABORATORYCLIA [id number] [place] [address] [place] Basic metabolic 2000 panelon 05-30-2024 Anion gap [Moles/Vol] 11 mmol/L Normal 8-15 [facility] Comment on above: Order Comment: Speci men Type: BLOOD SPECIMENOrdering Facility: [facility] Address: [address] [place] [address] Performed By: #### 2 4321-2 ####LERNER LABORATORYCLIA [id number] [place] [address] [place] Calcium [Mass/Vol] 8.8 mg/dL Normal 8.5-10.2 [facility] Comment on above: Order Comment: Speci men Type: BLOOD SPECIMENOrdering Facility: [facility] Address: [address] [place] [address] Performed By: #### 2 4321-2 ####LERNER LABORATORYCLIA [id number] [place] [address] [place] Chloride [Moles/Vol] 104 mmol/L Normal 98-107 [facility] Comment on above: Order Comment: Speci men Type: BLOOD SPECIMENOrdering Facility: [facility] Address: [address] [place] [address] Performed By: #### 2 4321-2 ####LERNER LABORATORYCLIA [id number] [place] [address] [place] CO2 [Moles/Vol] 27 mmol/L Normal 22-30 [facility] Comment on above: Order Comment: Speci men Type: BLOOD SPECIMENOrdering Facility: [facility] Address: [facility] [place] [address] Performed By: #### 2 4321-2 ####LERNER LABORATORYCLIA [id number] [place] [address] [place] Creatinine [Mass/Vol] 1.02 mg/dL Normal 0.73-1.22 [facility] Comment on above: Order Comment: Raudel carrillo Type: BLOOD SPECIMENOrdering Facility: [facility] Address: [address] [place] [address] Performed By: #### 2 4321-2 ####LERNER LABORATORYCLIA [id number] [place] [id number] [place] Creatinine and Glomerular filtration rate.predicted panel (S/P/Bld) 81 mL/min/1.73m??? Normal >=60 [facility] Comment on above: Order Comment: Raudel carrillo Type: BLOOD SPECIMENOrdering Facility: [facility] Address: [address] [place] [address] Result Comment: Sachi mated Glomerular Filtration Rate [...] Performed By: #### 2 4321-2 ####LERNER LABORATORYCLIA [id number] [place] [id number] [place] Glucose [Mass/Vol] 122 mg/dL High 74-99 [facility] Comment on above: Order Comment: Raudel carrillo Type: BLOOD SPECIMENOrdering Facility: [facility] Address: [address] [place] [address] Result Comment: The [place] Diabetes Association (ADA) provides guidance for cutoff [...] Standards of Medical Care in Diabetes 2016, [place] [employer]. Diabetes Care. 2016.39(Suppl 1). Performed By: #### 2 4321-2 ####LERNER LABORATORYCLIA [id number] [address] STATES OF [facility] Potassium [Moles/Vol] 3.8 mmol/L Normal 3.7-5.1 [facility] Comment on above: Order Comment: Speci men Type: BLOOD SPECIMENOrdering Facility: [facility] Address: [address] [place] [address] Performed By: #### 2 4321-2 ####LERNER LABORATORYCLIA [id number] [address] [place] OF [facility] Sodium [Moles/Vol] 142 mmol/L Normal 136-144 [facility] Comment on above: Order Comment: Speci men Type: BLOOD SPECIMENOrdering Facility: [facility] Address: [address] [place] [address] Performed By: #### 2 4321-2 ####LERNER LABORATORYCLIA [id number] [address] Urea nitrogen [Mass/Vol] 14 mg/dL Normal 9-24 [facility] Comment on above: Order Comment: Speci men Type: BLOOD SPECIMENOrdering Facility: [facility] Address: [address] [place] [address] Performed By: #### 2 4321-2 ####LERNER LABORATORYCLIA [id number] [address] [place] CASE MANAGEMon 05-30-2024 CASE MANAGEM [facility] CASE MANAGEM [facility] Danelle 05-30-2024 MICHAEL Telephone (AGREJI) MITUL OAKES ([id number]) 1955 M Date Time Provider Department 05/30/24 MARSHA LUCAS During your visit today, we recorded the following information about you: Allergies As of Date: 05/30/2024 Noted Allergy Reaction HEPARIN 05/23/2024 14 - Other: See Comments Comments: HIIT New pt to [facility] ED on 05/23/24. 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 - atorvastatin (LIPITOR) 80 mg tablet Take 1 tablet by mouth once daily. - wstaflhias-dqqsbimn-w ormoterol (BREZTRI) 160-9-4.8 mcg/actuation HFA aerosol inhaler [...] 1 tablet by mouth every morning. - [place]-3 Fatty Acids-Vitamin E (FISH OIL) 1,000 mg [...] wound VAC [Z46.89] 05/28/2024 Encounter Status:Closed by AEDLIA LARSON on 05/30/24 Normal [facility] CONSULT PROGon 05-30-2024 CONSULT PROG [facility] CONSULT PROG [facility] CONSULT PROG [facility] NUTRITIONon 05-30-2024 NUTRITION [facility] Basic metabolic 2000 panelon 05-29-2024 Anion gap [Moles/Vol] 12 mmol/L Normal 8-15 [facility] Comment on above: Order Comment: Raudel carrillo Type: BLOOD SPECIMENOrdering Facility: [facility] Address: [address] [place] [address] Performed By: #### 2 4321-2 ####[facility] LABORATORYCLIA [id number] [place] [address] [place] Calcium [Mass/Vol] 9.1 mg/dL Normal 8.5-10.2 [facility] Comment on above: Order Comment: Raudel carrillo Type: BLOOD SPECIMENOrdering Facility: [facility] Address: [address] [place] [address] Performed By: #### 2 4321-2 ####LERNER LABORATORYCLIA [id number] [place] [address] [place] Chloride [Moles/Vol] 102 mmol/L Normal 98-107 [facility] Comment on above: Order Comment: Specalejandro men Type: BLOOD SPECIMENOrdering Facility: [facility] Address: [address] [place] [address] Performed By: #### 2 4321-2 ####LERNER LABORATORYCLIA [id number] [place] [address] [place] CO2 [Moles/Vol] 28 mmol/L Normal 22-30 [facility] Comment on above: Order Comment: Speci men Type: BLOOD SPECIMENOrdering Facility: [facility] Address: [address] [place] [address] Performed By: #### 2 4321-2 ####LERNER LABORATORYCLIA [id number] [address] [place] Creatinine [Mass/Vol] 1.08 mg/dL Normal 0.73-1.22 [facility] Comment on above: Order Comment: Speci men Type: BLOOD SPECIMENOrdering Facility: [facility] Address: [address] [place] [address] Performed By: #### 2 4321-2 ####LERNER LABORATORYCLIA [id number] [address] Creatinine and Glomerular filtration rate.predicted panel (S/P/Bld) 75 mL/min/1.73m??? Normal >=60 [facility] Comment on above: Order Comment: Specalejandro men Type: BLOOD SPECIMENOrdering Facility: [facility] Address: [address] [place] [address] Result Comment: Sachi mated Glomerular Filtration Rate [...] Performed By: #### 2 4321-2 ####LERNER LABORATORYCLIA [id number] [place] [id number] [place] Glucose [Mass/Vol] 142 mg/dL High 74-99 [facility] Comment on above: Order Comment: Raudel men Type: BLOOD SPECIMENOrdering Facility: [facility] Address: [address] [place], [place] [id number] Result Comment: The [place] Diabetes Association (ADA) provides guidance for cutoff [...] Standards of Medical Care in Diabetes 2016, [place] [employer]. Diabetes Care. 2016.39(Suppl 1). Performed By: #### 2 4321-2 ####LERNER LABORATORYCLIA [id number] [place] [id number] [place] Potassium [Moles/Vol] 4.1 mmol/L Normal 3.7-5.1 [facility] Comment on above: Order Comment: Raudel lorena Type: BLOOD SPECIMENOrdering Facility: [facility] Address: [address] [place] [address] Performed By: #### 2 4321-2 ####LERNER LABORATORYCLIA [id number] [place] [id number] [place] Sodium [Moles/Vol] 142 mmol/L Normal 136-144 [facility] Comment on above: Order Comment: Payali men Type: BLOOD SPECIMENOrdering Facility: [facility] Address: [address] [place] [address] Performed By: #### 2 4321-2 ####LERNER LABORATORYCLIA [id number] [place] [id number] [place] Urea nitrogen [Mass/Vol] 11 mg/dL Normal 9-24 [facility] Comment on above: Order Comment: Payali men Type: BLOOD SPECIMENOrdering Facility: [facility] Address: [address] [place] [id number] Performed By: #### 2 4321-2 ####LERNER LABORATORYCLIA [id number] [place] [address] [place] CASE MANAGEMon 05-29-2024 CASE MANAGEM [facility] CONSULTon 05-29-2024 CONSULT Normal [facility] CONSULT PROGon 05-29-2024 CONSULT PROG [facility] CONSULT PROG [facility] NURSING PROGon 05-29-2024 NURSING PROG [facility] Basic metabolic 2000 panelon 05-28-2024 Anion gap [Moles/Vol] 11 mmol/L Normal 8-15 [facility] Comment on above: Order Comment: Speci men Type: BLOOD SPECIMENOrdering Facility: [facility] Address: [address] [place] [address] Performed By: #### 2 4321-2 ####LERNER LABORATORYCLIA [id number] [place] [address] [place] Calcium [Mass/Vol] 9.5 mg/dL Normal 8.5-10.2 [facility] Comment on above: Order Comment: Speci men Type: BLOOD SPECIMENOrdering Facility: [facility] Address: [address] [place] [address] Performed By: #### 2 4321-2 ####LERNER LABORATORYCLIA [id number] [place] [address] [place] Chloride [Moles/Vol] 104 mmol/L Normal 98-107 [facility] Comment on above: Order Comment: Speci men Type: BLOOD SPECIMENOrdering Facility: [facility] Address: [address] [place] [address] Performed By: #### 2 4321-2 ####LENRER LABORATORYCLIA [id number] [place] [address] [place] CO2 [Moles/Vol] 29 mmol/L Normal 22-30 [facility] Comment on above: Order Comment: Speci men Type: BLOOD SPECIMENOrdering Facility: [facility] Address: [address] [place] [address] Performed By: #### 2 4321-2 ####LERNER LABORATORYCLIA [id number] [address] [place] Creatinine [Mass/Vol] 1.12 mg/dL Normal 0.73-1.22 [facility] Comment on above: Order Comment: Raudel carrillo Type: BLOOD SPECIMENOrdering Facility: [facility] Address: [address] [place] [address] Performed By: #### 2 4321-2 ####[facility] LABORATORYCLIA [id number] [address] Creatinine and Glomerular filtration rate.predicted panel (S/P/Bld) 72 mL/min/1.73m??? Normal >=60 [facility] Comment on above: Order Comment: Raudel carrillo Type: BLOOD SPECIMENOrdering Facility: [facility] Address: [address] [place] [address] Result Comment: Sachi mated Glomerular Filtration Rate [...] Performed By: #### 2 4321-2 ####LERNER LABORATORYCLIA [id number] [address] [place] [facility] Glucose [Mass/Vol] 129 mg/dL High 74-99 [facility] Comment on above: Order Comment: Raudel carrillo Type: BLOOD SPECIMENOrdering Facility: [facility] Address: [address] [place] [address] Result Comment: The [place] Diabetes Association (ADA) provides guidance for cutoff [...] Standards of Medical Care in Diabetes 2016, [place] [employer]. Diabetes Care. 2016.39(Suppl 1). Performed By: #### 2 4321-2 ####LERNER LABORATORYCLIA [id number] [place] [address] [place] Potassium [Moles/Vol] 4.2 mmol/L Normal 3.7-5.1 [facility] Comment on above: Order Comment: Speci men Type: BLOOD SPECIMENOrdering Facility: [facility] Address: [address] [place] [address] Performed By: #### 2 4321-2 ####[facility] LABORATORYCLIA [id number] [address] [place] Sodium [Moles/Vol] 144 mmol/L Normal 136-144 [facility] Comment on above: Order Comment: Raudel carrillo Type: BLOOD SPECIMENOrdering Facility: [facility] Address: [address] [place] [address] Performed By: #### 2 4321-2 ####LERNER LABORATORYCLIA [id number] [address] [place] Urea nitrogen [Mass/Vol] 9 mg/dL Normal 9-24 [facility] Comment on above: Order Comment: Raudel carrillo Type: BLOOD SPECIMENOrdering Facility: [facility] Address: [address] [place] [address] Performed By: #### 2 4321-2 ####[facility] LABORATORYCLIA [id number] [place] [address] [place] CASE MANAGEMon 05-28-2024 CASE MANAGEM Normal [facility] CBC panel Auto (Bld)on 05-28 Erythrocyte distribution width (RBC) [Ratio] 16.1 % High 11.5-15.0 [facility] Comment on above: Order Comment: Raudel carrillo Type: BLOOD SPECIMENOrdering Facility: [facility] Address: [address] [place] [address] Performed By: #### 5 8410-2 ####[facility] LABORATORYCLIA [id number] [place] [address] [place] Hematocrit (Bld) [Volume fraction] 44.4 % Normal 39.0-51.0 [facility] Comment on above: Order Comment: Speci men Type: BLOOD SPECIMENOrdering Facility: [facility] Address: [address] [place] [address] Performed By: #### 5 8410-2 ####LERNER LABORATORYCLIA [id number] [address] [place] Hemoglobin (Bld) [Mass/Vol] 13.9 g/dL Normal 13.0-17.0 [facility] Comment on above: Order Comment: Speci men Type: BLOOD SPECIMENOrdering Facility: [facility] Address: [address] [place] [address] Performed By: #### 5 8410-2 ####LERNER LABORATORYCLIA [id number] [address] [place] MCH (RBC) [Entitic mass] 27.7 pg Normal 26.0-34.0 [facility] Comment on above: Order Comment: Speci men Type: BLOOD SPECIMENOrdering Facility: [facility] Address: [address] [place] [address] Performed By: #### 5 8410-2 ####LERNER LABORATORYCLIA [id number] [address] [place] MCHC (RBC) [Mass/Vol] 31.3 g/dL Normal 30.5-36.0 [facility] Comment on above: Order Comment: Speci men Type: BLOOD SPECIMENOrdering Facility: [facility] Address: [address] [place] [address] Performed By: #### 5 8410-2 ####LERNER LABORATORYCLIA [id number] [address] [place] MCV (RBC) [Entitic vol] 88.6 fL Normal 80.0-100.0 [facility] Comment on above: Order Comment: Speci men Type: BLOOD SPECIMENOrdering Facility: [facility] Address: [address] [place] [address] Performed By: #### 5 8410-2 ####LERNER LABORATORYCLIA [id number] [place] [address] [place] Nucleated RBC (Bld) [#/Vol] 10*3/uL Normal <0.01 [facility] Comment on above: Order Comment: Speci men Type: BLOOD SPECIMENOrdering Facility: [facility] Address: [address] [place] [address] Performed By: #### 5 8410-2 ####LERNER LABORATORYCLIA [id number] [place] [address] [place] Platelet mean volume (Bld) [Entitic vol] 9.9 fL Normal 9.0-12.7 [facility] Comment on above: Order Comment: Speci men Type: BLOOD SPECIMENOrdering Facility: [facility] Address: [address] [place] [address] Performed By: #### 5 8410-2 ####LERNER LABORATORYCLIA [id number] [place] [address] [place] Platelets (Bld) [#/Vol] 244 10*3/uL Normal 150-400 [facility] Comment on above: Order Comment: Speci men Type: BLOOD SPECIMENOrdering Facility: [facility] Address: [address] [place] [address] Performed By: #### 5 8410-2 ####LERNER LABORATORYCLIA [id number] [place] [address] [place] RBC (Bld) [#/Vol] 5.01 10*6/uL Normal 4.20-6.00 [facility] Comment on above: Order Comment: Speci men Type: BLOOD SPECIMENOrdering Facility: [facility] Address: [address] [place] [address] Performed By: #### 5 8410-2 ####LERNER LABORATORYCLIA [id number] [place] [id number] [place] WBC (Bld) [#/Vol] 9.10 10*3/uL Normal 3.70-11.00 [facility] Comment on above: Order Comment: Speci men Type: BLOOD SPECIMENOrdering Facility: [facility] Address: [address] [place] [address] Performed By: #### 5 8410-2 ####LERNER LABORATORYCLIA [id number] [place] [id number] [place] CONSULT PROGon 05-28-2024 CONSULT PROG [facility] CONSULT PROG [facility] THERAPY NTon 05-28-2024 THERAPY NT [facility] Vancomycin [place] SerPl-mCncon 05-28-2024 Vancomycin random [Mass/Vol] 16.5 ug/mL Normal 10.0-20.0 [facility] Comment on above: Order Comment: Speci men Type: BLOOD SPECIMENOrdering Facility: [facility] Address: [address] [place] [address] Result Comment: Refe rence ranges and high/low indicator flags are provided as general guidelines only. The treating physician must determine appropriate target levels/dosing based on the specific clinical situation. Performed By: #### 4 091-5 ####[facility] LABORATORYCLIA [id number] [place] [address] [place] Basic metabolic 2000 panelon 05-27-2024 Anion gap [Moles/Vol] 10 mmol/L Normal 8-15 [facility] Comment on above: Order Comment: Speci men Type: BLOOD SPECIMENOrdering Facility: [facility] Address: [address] [place] [address] Performed By: #### 2 4321-2 ####[facility] LABORATORYCLIA [id number] [place] [address] [place] Calcium [Mass/Vol] 8.9 mg/dL Normal 8.5-10.2 [facility] Comment on above: Order Comment: Speci men Type: BLOOD SPECIMENOrdering Facility: [facility] Address: [address] [place] [address] Performed By: #### 2 4321-2 ####LERNER LABORATORYCLIA [id number] [place] [address] [place] Chloride [Moles/Vol] 102 mmol/L Normal 98-107 [facility] Comment on above: Order Comment: Speci men Type: BLOOD SPECIMENOrdering Facility: [facility] Address: [address] [place] [address] Performed By: #### 2 4321-2 ####LERNER LABORATORYCLIA [id number] [place] [address] [place] CO2 [Moles/Vol] 29 mmol/L Normal 22-30 [facility] Comment on above: Order Comment: Speci men Type: BLOOD SPECIMENOrdering Facility: [facility] Address: [address] [place] [address] Performed By: #### 2 4321-2 ####LERNER LABORATORYCLIA [id number] [place] [id number] [place] Creatinine [Mass/Vol] 1.17 mg/dL Normal 0.73-1.22 [facility] Comment on above: Order Comment: Payali men Type: BLOOD SPECIMENOrdering Facility: [facility] Address: [address] [place] [address] Performed By: #### 2 4321-2 ####LERNER LABORATORYCLIA [id number] [address] Creatinine and Glomerular filtration rate.predicted panel (S/P/Bld) 68 mL/min/1.73m??? Normal >=60 [facility] Comment on above: Order Comment: Speci men Type: BLOOD SPECIMENOrdering Facility: [facility] Address: [address] [place] [address] Result Comment: Sachi mated Glomerular Filtration Rate [...] Performed By: #### 2 4321-2 ####LERNER LABORATORYCLIA [id number] [place] [id number] [place] Glucose [Mass/Vol] 121 mg/dL High 74-99 [facility] Comment on above: Order Comment: Raudel lorena Type: BLOOD SPECIMENOrdering Facility: [facility] Address: [address] [place] [address] Result Comment: The [place] Diabetes Association (ADA) provides guidance for cutoff [...] Standards of Medical Care in Diabetes 2016, [place] [employer]. Diabetes Care. 2016.39(Suppl 1). Performed By: #### 2 4321-2 ####LERNER LABORATORYCLIA [id number] [place] [address] [place] Potassium [Moles/Vol] 3.6 mmol/L Low 3.7-5.1 [facility] Comment on above: Order Comment: Raudel carrillo Type: BLOOD SPECIMENOrdering Facility: [facility] Address: [address] [place] [address] Performed By: #### 2 4321-2 ####LERNER LABORATORYCLIA [id number] [place] [address] [place] Sodium [Moles/Vol] 141 mmol/L Normal 136-144 [facility] Comment on above: Order Comment: Raudel carrillo Type: BLOOD SPECIMENOrdering Facility: [facility] Address: [address] [place] [address] Performed By: #### 2 4321-2 ####LERNER LABORATORYCLIA [id number] [place] [address] [place] Urea nitrogen [Mass/Vol] 14 mg/dL Normal 9-24 [facility] Comment on above: Order Comment: Payali lorena Type: BLOOD SPECIMENOrdering Facility: [facility] Address: [address] [place] [address] Performed By: #### 2 4321-2 ####LERNER LABORATORYCLIA [id number] [place] [address] [place] CASE MANAGEMon 05-27-2024 CASE MANAGEM Normal [facility] CBC panel Auto (Bld)on 05-27 Erythrocyte distribution width (RBC) [Ratio] 15.9 % High 11.5-15.0 [facility] Comment on above: Order Comment: Speci men Type: BLOOD SPECIMENOrdering Facility: [facility] Address: [address] [place] [address] Performed By: #### 5 8410-2 ####LERNER LABORATORYCLIA [id number] [address] Hematocrit (Bld) [Volume fraction] 40.7 % Normal 39.0-51.0 [facility] Comment on above: Order Comment: Speci men Type: BLOOD SPECIMENOrdering Facility: [facility] Address: [address] [place] [address] Performed By: #### 5 8410-2 ####LERNER LABORATORYCLIA [id number] [address] Hemoglobin (Bld) [Mass/Vol] 12.9 g/dL Low 13.0-17.0 [facility] Comment on above: Order Comment: Speci men Type: BLOOD SPECIMENOrdering Facility: [facility] Address: [address] [place] [address] Performed By: #### 5 8410-2 ####LERNER LABORATORYCLIA [id number] [address] MCH (RBC) [Entitic mass] 28.1 pg Normal 26.0-34.0 [facility] Comment on above: Order Comment: Speci men Type: BLOOD SPECIMENOrdering Facility: [facility] Address: [address] [place] [address] Performed By: #### 5 8410-2 ####LERNER LABORATORYCLIA [id number] [address] MCHC (RBC) [Mass/Vol] 31.7 g/dL Normal 30.5-36.0 [facility] Comment on above: Order Comment: Speci men Type: BLOOD SPECIMENOrdering Facility: [facility] Address: [address] [place] [address] Performed By: #### 5 8410-2 ####LERNER LABORATORYCLIA [id number] [place] [address] [place] MCV (RBC) [Entitic vol] 88.7 fL Normal 80.0-100.0 [facility] Comment on above: Order Comment: Speci men Type: BLOOD SPECIMENOrdering Facility: [facility] Address: [address] [place] [address] Performed By: #### 5 8410-2 ####LERNER LABORATORYCLIA [id number] [place] [address] [place] Nucleated RBC (Bld) [#/Vol] 10*3/uL Normal <0.01 [facility] Comment on above: Order Comment: Speci men Type: BLOOD SPECIMENOrdering Facility: [facility] Address: [address] [place] [address] Performed By: #### 5 8410-2 ####LERNER LABORATORYCLIA [id number] [address] [place] Platelet mean volume (Bld) [Entitic vol] 10.4 fL Normal 9.0-12.7 [facility] Comment on above: Order Comment: Speci men Type: BLOOD SPECIMENOrdering Facility: [facility] Address: [address] [place] [address] Performed By: #### 5 8410-2 ####LERNER LABORATORYCLIA [id number] [address] [place] Platelets (Bld) [#/Vol] 237 10*3/uL Normal 150-400 [facility] Comment on above: Order Comment: Speci men Type: BLOOD SPECIMENOrdering Facility: [facility] Address: [address] [place] [address] Performed By: #### 5 8410-2 ####LERNER LABORATORYCLIA [id number] [address] [place] RBC (Bld) [#/Vol] 4.59 10*6/uL Normal 4.20-6.00 [facility] Comment on above: Order Comment: Speci men Type: BLOOD SPECIMENOrdering Facility: [facility] Address: [address] [place] [address] Performed By: #### 5 8410-2 ####[facility] LABORATORYCLIA [id number] [place] [address] [place] WBC (Bld) [#/Vol] 7.32 10*3/uL Normal 3.70-11.00 [facility] Comment on above: Order Comment: Speci men Type: BLOOD SPECIMENOrdering Facility: [facility] Address: [address] [place] [address] Performed By: #### 5 8410-2 ####[facility] LABORATORYCLIA [id number] [place] [address] [facility] [place] CONSULT PROGon 05-27-2024 CONSULT PROG Normal [facility] ALLIED HEALTHon 05-26-2024 ALLIED HEALTH Normal [facility] BRIEF OP NOTon 05-26-2024 BRIEF OP NOT [facility] Bacteria Spec Anaerobe Culto n 05-26-2024 Bacteria identified Anaer cx Nom (Unsp spec) Negative [facility] Comment on above: Performed By: #### 6 35-3, 6462-6 ####[facility] LABCLIA [id number] [place] [address] [place] Bacteria identified Anaer cx Nom (Unsp spec) Negative Normal [facility] Comment on above: Performed By: #### 6 35-3, 98504-5, 77722-0 ####[facility] LABCLIA [id number] [address] [address] [place] Bacteria Tiss Culton 024 Bacteria identified Cx Nom (Tiss) Abnormal [facility] Comment on above: Performed By: #### 6 35-3, 30380-4, 73678-9 ####[facility] LABCLIA [id number] [place] [address] [place] Bacteria Wnd Culton 05-26-20 24 Bacteria identified Cx Nom (Wound) Abnormal [facility] Comment on above: Performed By: #### 6 35-3, 6462-6 ####[facility] LABCLIA [id number] ASIF [facility] HOSPITALAgnes [id number] [id number] [place] Basic metabolic 2000 panelon 05-26-2024 Anion gap [Moles/Vol] 13 mmol/L Normal 8-15 [facility] Comment on above: Order Comment: Speci men Type: BLOOD SPECIMENOrdering Facility: [facility] Address: [address] [place] [address] Performed By: #### 2 4321-2 ####LERNER LABORATORYCLIA [id number] [place] [address] [place] Calcium [Mass/Vol] 8.8 mg/dL Normal 8.5-10.2 [facility] Comment on above: Order Comment: Speci men Type: BLOOD SPECIMENOrdering Facility: [facility] Address: [address] [place] [address] Performed By: #### 2 4321-2 ####LERNER LABORATORYCLIA [id number] [place] [address] [place] Chloride [Moles/Vol] 102 mmol/L Normal 98-107 [facility] Comment on above: Order Comment: Speci men Type: BLOOD SPECIMENOrdering Facility: [facility] Address: [address] [place] [address] Performed By: #### 2 4321-2 ####LERNER LABORATORYCLIA [id number] [place] [address] [place] CO2 [Moles/Vol] 26 mmol/L Normal 22-30 [facility] Comment on above: Order Comment: Speci men Type: BLOOD SPECIMENOrdering Facility: [facility] Address: [address] [place] [address] Performed By: #### 2 4321-2 ####LERNER LABORATORYCLIA [id number] [place] [address] [place] Creatinine [Mass/Vol] 1.26 mg/dL High 0.73-1.22 [facility] Comment on above: Order Comment: Speci men Type: BLOOD SPECIMENOrdering Facility: [facility] Address: [address] [place] [address] Performed By: #### 2 4321-2 ####LERNER LABORATORYCLIA [id number] [place] [address] [place] Creatinine and Glomerular filtration rate.predicted panel (S/P/Bld) 63 mL/min/1.73m??? Normal >=60 [facility] Comment on above: Order Comment: Raudel carrillo Type: BLOOD SPECIMENOrdering Facility: [facility] Address: [address] [place] [address] Result Comment: Sachi mated Glomerular Filtration Rate [...] Performed By: #### 2 4321-2 ####LERNER LABORATORYCLIA [id number] [place] [address] [place] Glucose [Mass/Vol] 118 mg/dL High 74-99 [facility] Comment on above: Order Comment: Raudel carrillo Type: BLOOD SPECIMENOrdering Facility: [facility] Address: [address] [place] [address] Result Comment: The [place] [employer] (ADA) provides guidance for cutoff [...] Standards of Medical Care in Diabetes 2016, [place] [employer]. Diabetes Care. 2016.39(Suppl 1). Performed By: #### 2 4321-2 ####LERNER LABORATORYCLIA [id number] [place] [address] [place] Potassium [Moles/Vol] 3.4 mmol/L Low 3.7-5.1 [facility] Comment on above: Order Comment: Speci men Type: BLOOD SPECIMENOrdering Facility: [facility] Address: [address] [place] [address] Performed By: #### 2 4321-2 ####LERNER LABORATORYCLIA [id number] [address] Sodium [Moles/Vol] 141 mmol/L Normal 136-144 [facility] Comment on above: Order Comment: Speci men Type: BLOOD SPECIMENOrdering Facility: [facility] Address: [address] [place] [address] Performed By: #### 2 4321-2 ####LERNER LABORATORYCLIA [id number] [address] Urea nitrogen [Mass/Vol] 16 mg/dL Normal 9-24 [facility] Comment on above: Order Comment: Speci men Type: BLOOD SPECIMENOrdering Facility: [facility] Address: [address] [place] [address] Performed By: #### 2 4321-2 ####LERNER LABORATORYCLIA [id number] [address] [facility] CBC panel Auto (Bld)on 05-26 Erythrocyte distribution width (RBC) [Ratio] 15.6 % High 11.5-15.0 [facility] Comment on above: Order Comment: Speci men Type: BLOOD SPECIMENOrdering Facility: [facility] Address: [address] [place] [address] Performed By: #### 5 8410-2 ####LERNER LABORATORYCLIA [id number] [address] Hematocrit (Bld) [Volume fraction] 42.6 % Normal 39.0-51.0 [facility] Comment on above: Order Comment: Speci men Type: BLOOD SPECIMENOrdering Facility: [facility] Address: [address] [place] [address] Performed By: #### 5 8410-2 ####LERNER LABORATORYCLIA [id number] [address] Hemoglobin (Bld) [Mass/Vol] 13.4 g/dL Normal 13.0-17.0 [facility] Comment on above: Order Comment: Speci men Type: BLOOD SPECIMENOrdering Facility: [facility] Address: [address] [place] [address] Performed By: #### 5 8410-2 ####LERNER LABORATORYCLIA [id number] [address] MCH (RBC) [Entitic mass] 27.7 pg Normal 26.0-34.0 [facility] Comment on above: Order Comment: Speci men Type: BLOOD SPECIMENOrdering Facility: [facility] Address: [address] [place] [address] Performed By: #### 5 8410-2 ####LERNER LABORATORYCLIA [id number] [address] MCHC (RBC) [Mass/Vol] 31.5 g/dL Normal 30.5-36.0 [facility] Comment on above: Order Comment: Speci men Type: BLOOD SPECIMENOrdering Facility: [facility] Address: [address] [place] [address] Performed By: #### 5 8410-2 ####LERNER LABORATORYCLIA [id number] [address] MCV (RBC) [Entitic vol] 88.2 fL Normal 80.0-100.0 [facility] Comment on above: Order Comment: Speci men Type: BLOOD SPECIMENOrdering Facility: [facility] Address: [address] [place] [address] Performed By: #### 5 8410-2 ####LERNER LABORATORYCLIA [id number] [address] Nucleated RBC (Bld) [#/Vol] 10*3/uL Normal <0.01 [facility] Comment on above: Order Comment: Speci men Type: BLOOD SPECIMENOrdering Facility: [facility] Address: [address] [place] [address] Performed By: #### 5 8410-2 ####LERNER LABORATORYCLIA [id number] [place] [address] [place] Platelet mean volume (Bld) [Entitic vol] 10.1 fL Normal 9.0-12.7 [facility] Comment on above: Order Comment: Speci men Type: BLOOD SPECIMENOrdering Facility: [facility] Address: [address] [place] [address] Performed By: #### 5 8410-2 ####LERNER LABORATORYCLIA [id number] [place] [address] [place] Platelets (Bld) [#/Vol] 225 10*3/uL Normal 150-400 [facility] Comment on above: Order Comment: Speci men Type: BLOOD SPECIMENOrdering Facility: [facility] Address: [address] [place] [address] Performed By: #### 5 8410-2 ####[facility] LABORATORYCLIA [id number] [place] [address] [place] RBC (Bld) [#/Vol] 4.83 10*6/uL Normal 4.20-6.00 [facility] Comment on above: Order Comment: Speci men Type: BLOOD SPECIMENOrdering Facility: [facility] Address: [address] [place] [address] Performed By: #### 5 8410-2 ####[facility] LABORATORYCLIA [id number] [address] [place] WBC (Bld) [#/Vol] 8.73 10*3/uL Normal 3.70-11.00 [facility] Comment on above: Order Comment: Speci men Type: BLOOD SPECIMENOrdering Facility: [facility] Address: [address] [place] [address] Performed By: #### 5 8410-2 ####[facility] LABORATORYCLIA [id number] [address] [place] CONSULTon 05-26-2024 CONSULT [facility] CONSULT PROGon 05-26-2024 CONSULT PROG [facility] CTA ABD/PEL/LOWER EXT W IVCO Non 05-26-2024 CTA ABD/PEL/LOWER EXT W IVCON [facility] Microorganism Spec Culton Microorganism identified Cx Nom (Unsp spec) ORGANISM ID: 1 Rare Gurpreet parapsilosis complex No susceptibility testing done. Call lab within 72 hours to initiate work-up if clinically indicated. FUNGAL SMEAR: No fungus seen Abnormal [facility] Comment on above: Performed By: #### 6 35-3, 12159-8, 15554-4 ####[facility] LABCLIA [id number] [facility] [id number] [facility] OPERATIVE NOon 05-26-2024 OPERATIVE NO [facility] THERAPY NTon 05-26-2024 THERAPY NT [facility] Vancomycin [place] SerPl-mCncon 05-26-2024 Vancomycin random [Mass/Vol] 14.3 ug/mL Normal 10.0-20.0 [facility] Comment on above: Order Comment: Speci men Type: BLOOD SPECIMENOrdering Facility: [facility] Address: [address] [place] [address] Result Comment: Refe rence ranges and high/low indicator flags are provided as general guidelines only. The treating physician must determine appropriate target levels/dosing based on the specific clinical situation. Performed By: #### 4 091-5 ####[facility] LABORATORYCLIA [id number] [address] [place] ALLIED HEALTHon 05-25-2024 [facility] Basic metabolic 2000 panelon 05-25-2024 Anion gap [Moles/Vol] 12 mmol/L Normal 8-15 [facility] Comment on above: Order Comment: Speci men Type: BLOOD SPECIMENOrdering Facility: [facility] Address: [address] [place] [address] Performed By: #### 2 4321-2 ####[facility] LABORATORYCLIA [id number] [address] [place] Calcium [Mass/Vol] 8.6 mg/dL Normal 8.5-10.2 [facility] Comment on above: Order Comment: Speci men Type: BLOOD SPECIMENOrdering Facility: [facility] Address: [address] [place] [address] Performed By: #### 2 4321-2 ####[facility] LABORATORYCLIA [id number] [address] STATES [facility] Chloride [Moles/Vol] 100 mmol/L Normal 98-107 [facility] Comment on above: Order Comment: Raudel lorena Type: BLOOD SPECIMENOrdering Facility: [facility] Address: [address] [place] [address] Performed By: #### 2 4321-2 ####LERNER LABORATORYCLIA [id number] [address] [place] CO2 [Moles/Vol] 26 mmol/L Normal 22-30 [facility] Comment on above: Order Comment: Raudel lorena Type: BLOOD SPECIMENOrdering Facility: [facility] Address: [address] [place] [address] Performed By: #### 2 4321-2 ####[facility] LABORATORYCLIA [id number] [address] Creatinine [Mass/Vol] 1.34 mg/dL High 0.73-1.22 [facility] Comment on above: Order Comment: Raudel lorena Type: BLOOD SPECIMENOrdering Facility: [facility] Address: [address] [place] [address] Performed By: #### 2 4321-2 ####LERNER LABORATORYCLIA [id number] [address] Creatinine and Glomerular filtration rate.predicted panel (S/P/Bld) 58 mL/min/1.73m??? Low >=60 [facility] Comment on above: Order Comment: Raudel lorena Type: BLOOD SPECIMENOrdering Facility: [facility] Address: [address] [place] [address] Result Comment: Sachi mated Glomerular Filtration Rate [...] Performed By: #### 2 4321-2 ####LERNER LABORATORYCLIA [id number] [place] [address] [place] Glucose [Mass/Vol] 114 mg/dL High 74-99 [facility] Comment on above: Order Comment: Raudel carrillo Type: BLOOD SPECIMENOrdering Facility: [facility] Address: [address] [id number] Result Comment: The [place] [employer] (ADA) provides guidance for cutoff [...] Standards of Medical Care in Diabetes 2016, [place] [employer]. Diabetes Care. 2016.39(Suppl 1). Performed By: #### 2 4321-2 ####LERNER LABORATORYCLIA [id number] [place] [address] [place] Potassium [Moles/Vol] 3.8 mmol/L Normal 3.7-5.1 [facility] Comment on above: Order Comment: Raudel lorena Type: BLOOD SPECIMENOrdering Facility: [facility] Address: [address] [place] [address] Performed By: #### 2 4321-2 ####LERNER LABORATORYCLIA [id number] [place] [address] [place] Sodium [Moles/Vol] 138 mmol/L Normal 136-144 [facility] Comment on above: Order Comment: Raudel carrillo Type: BLOOD SPECIMENOrdering Facility: [facility] Address: [address] [id number] Performed By: #### 2 4321-2 ####LERNER LABORATORYCLIA [id number] [place] [address] [place] Urea nitrogen [Mass/Vol] 15 mg/dL Normal 9-24 [facility] Comment on above: Order Comment: Raudel lorena Type: BLOOD SPECIMENOrdering Facility: [facility] Address: [address] [place] [address] Performed By: #### 2 4321-2 ####LERNER LABORATORYCLIA [id number] [address] [place] CASE MGT INIT [facility]on 2023 [facility] panel Auto (Bld)on 05-25 Erythrocyte distribution width (RBC) [Ratio] 15.7 % High 11.5-15.0 [facility] Comment on above: Order Comment: Speci men Type: BLOOD SPECIMENOrdering Facility: [facility] Address: [address] [place] [address] Performed By: #### 5 8410-2 ####LERNER LABORATORYCLIA [id number] [address] Hematocrit (Bld) [Volume fraction] 45.3 % Normal 39.0-51.0 [facility] Comment on above: Order Comment: Speci men Type: BLOOD SPECIMENOrdering Facility: [facility] Address: [address] [place] [address] Performed By: #### 5 8410-2 ####LERNER LABORATORYCLIA [id number] [address] [place] Hemoglobin (Bld) [Mass/Vol] 14.0 g/dL Normal 13.0-17.0 [facility] Comment on above: Order Comment: Speci men Type: BLOOD SPECIMENOrdering Facility: [facility] Address: [address] [place] [address] Performed By: #### 5 8410-2 ####LERNER LABORATORYCLIA [id number] [address] MCH (RBC) [Entitic mass] 27.3 pg Normal 26.0-34.0 [facility] Comment on above: Order Comment: Speci men Type: BLOOD SPECIMENOrdering Facility: [facility] Address: [address] [place] [address] Performed By: #### 5 8410-2 ####LERNER LABORATORYCLIA [id number] [place] [address] [place] MCHC (RBC) [Mass/Vol] 30.9 g/dL Normal 30.5-36.0 [facility] Comment on above: Order Comment: Speci men Type: BLOOD SPECIMENOrdering Facility: [facility] Address: [address] [place] [address] Performed By: #### 5 8410-2 ####LERNER LABORATORYCLIA [id number] [place] [id number] [place] MCV (RBC) [Entitic vol] 88.3 fL Normal 80.0-100.0 [facility] Comment on above: Order Comment: Speci men Type: BLOOD SPECIMENOrdering Facility: [facility] Address: [address] [place] [address] Performed By: #### 5 8410-2 ####LERNER LABORATORYCLIA [id number] [place] [address] [place] Nucleated RBC (Bld) [#/Vol] 10*3/uL Normal <0.01 [facility] Comment on above: Order Comment: Speci men Type: BLOOD SPECIMENOrdering Facility: [facility] Address: [address] [place] [address] Performed By: #### 5 8410-2 ####LERNER LABORATORYCLIA [id number] [place] [address] [place] Platelet mean volume (Bld) [Entitic vol] 9.8 fL Normal 9.0-12.7 [facility] Comment on above: Order Comment: Speci men Type: BLOOD SPECIMENOrdering Facility: [facility] Address: [address] [place] [address] Performed By: #### 5 8410-2 ####LERNER LABORATORYCLIA [id number] [place] [address] [place] Platelets (Bld) [#/Vol] 230 10*3/uL Normal 150-400 [facility] Comment on above: Order Comment: Speci men Type: BLOOD SPECIMENOrdering Facility: [facility] Address: [address] [place] [address] Performed By: #### 5 8410-2 ####LERNER LABORATORYCLIA [id number] [address] [place] RBC (Bld) [#/Vol] 5.13 10*6/uL Normal 4.20-6.00 [facility] Comment on above: Order Comment: Speci men Type: BLOOD SPECIMENOrdering Facility: [facility] Address: [address] [place] [address] Performed By: #### 5 8410-2 ####[facility] LABORATORYCLIA [id number] [address] [facility] WBC (Bld) [#/Vol] 10.34 10*3/uL Normal 3.70-11.00 [facility] Comment on above: Order Comment: Speci men Type: BLOOD SPECIMENOrdering Facility: [facility] Address: [address] [place] [address] Performed By: #### 5 8410-2 ####[facility] LABORATORYCLIA [id number] [address] CONSULT PROGon 05-25-2024 CONSULT PROG [facility] MRI FOOT/TOES WO IVCON LTon 05-25-2024 MRI FOOT/TOES WO IVCON LT Normal [facility] US ARTERIAL PVR LOWERon -0 US ARTERIAL PVR LOWER Normal [facility] Vancomycin [place] SerPl-mCncon 05-25-2024 Vancomycin random [Mass/Vol] 29.1 ug/mL High 10.0-20.0 [facility] Comment on above: Order Comment: Speci men Type: BLOOD SPECIMENOrdering Facility: [facility] Address: [address] [place] [address] Result Comment: Refe rence ranges and high/low indicator flags are provided as general guidelines only. The treating physician must determine appropriate target levels/dosing based on the specific clinical situation. Performed By: #### 4 091-5 ####[facility] LABORATORYCLIA [id number] [address] [place] ALLIED HEALTHon 05-24-2024 ALLIED HEALTH [facility] Bacteria Wnd Culton 05-24-20 24 Bacteria identified Cx Nom (Wound) ORGANISM ID: 2 Few skin mickey GRAM STAIN: Rare Yeast Rare Gram positive cocci Rare Polymorphonuclear leukocytes Abnormal [facility] Comment on above: Performed By: #### 6 462-6 ####[facility] LABCLIA [id number] [facility] [id number] [place] Bilirub Conj SerPl-mCncon Bilirubin.conjugated [Mass/Vol] mg/dL Normal <0.2 [facility] Comment on above: Order Comment: Speci men Type: BLOOD SPECIMENOrdering Facility: [facility] Address: [address] [place] [address] Result Comment: Resu lts may be falsely decreased due to interference from hemolysis. Suggest reorder as clinically indicated. Performed By: #### 1 9123-9, 19852-8, 69178-5 ####LERNER LABORATORYCLIA [id number] [address] [place] CBC panel Auto (Bld)on 05-24 Erythrocyte distribution width (RBC) [Ratio] 15.4 % High 11.5-15.0 [facility] Comment on above: Order Comment: Speci men Type: BLOOD SPECIMENOrdering Facility: [facility] Address: [address] [place] [address] Performed By: #### 5 8410-2 ####LERNER LABORATORYCLIA [id number] [address] [place] Hematocrit (Bld) [Volume fraction] 44.0 % Normal 39.0-51.0 [facility] Comment on above: Order Comment: Speci men Type: BLOOD SPECIMENOrdering Facility: [facility] Address: [address] [place] [address] Performed By: #### 5 8410-2 ####LERNER LABORATORYCLIA [id number] [address] [place] Hemoglobin (Bld) [Mass/Vol] 14.2 g/dL Normal 13.0-17.0 [facility] Comment on above: Order Comment: Speci men Type: BLOOD SPECIMENOrdering Facility: [facility] Address: [address] [place] [address] Performed By: #### 5 8410-2 ####LERNER LABORATORYCLIA [id number] [address] STATES [facility] MCH (RBC) [Entitic mass] 27.5 pg Normal 26.0-34.0 [facility] Comment on above: Order Comment: Speci men Type: BLOOD SPECIMENOrdering Facility: [facility] Address: [address] [place] [address] Performed By: #### 5 8410-2 ####LERNER LABORATORYCLIA [id number] [address] [place] MCHC (RBC) [Mass/Vol] 32.3 g/dL Normal 30.5-36.0 [facility] Comment on above: Order Comment: Speci men Type: BLOOD SPECIMENOrdering Facility: [facility] Address: [address] [place] [address] Performed By: #### 5 8410-2 ####LERNER LABORATORYCLIA [id number] [address] [place] MCV (RBC) [Entitic vol] 85.1 fL Normal 80.0-100.0 [facility] Comment on above: Order Comment: Speci men Type: BLOOD SPECIMENOrdering Facility: [facility] Address: [address] [place] [address] Performed By: #### 5 8410-2 ####LERNER LABORATORYCLIA [id number] [address] Nucleated RBC (Bld) [#/Vol] 10*3/uL Normal <0.01 [facility] Comment on above: Order Comment: Speci men Type: BLOOD SPECIMENOrdering Facility: [facility] Address: [address] [place] [address] Performed By: #### 5 8410-2 ####LERN[facility] LABORATORYCLIA [id number] [address] Platelet mean volume (Bld) [Entitic vol] 9.9 fL Normal 9.0-12.7 [facility] Comment on above: Order Comment: Speci men Type: BLOOD SPECIMENOrdering Facility: [facility] Address: [address] [place] [address] Performed By: #### 5 8410-2 ####LERN[facility] LABORATORYCLIA [id number] [address] [place] Platelets (Bld) [#/Vol] 242 10*3/uL Normal 150-400 [facility] Comment on above: Order Comment: Speci men Type: BLOOD SPECIMENOrdering Facility: [facility] Address: [address] [place] [address] Performed By: #### 5 8410-2 ####LERNER LABORATORYCLIA [id number] [place] [address] [place] RBC (Bld) [#/Vol] 5.17 10*6/uL Normal 4.20-6.00 [facility] Comment on above: Order Comment: Speci men Type: BLOOD SPECIMENOrdering Facility: [facility] Address: [address] [place] [address] Performed By: #### 5 8410-2 ####[place] LABORATORYCLIA [id number] [address] WBC (Bld) [#/Vol] 7.36 10*3/uL Normal 3.70-11.00 [facility] Comment on above: Order Comment: Speci men Type: BLOOD SPECIMENOrdering Facility: [facility] Address: [address] [place] [address] Performed By: #### 5 8410-2 ####[facility] LABORATORYCLIA [id number] [address] [place] CONSULTon 05-24-2024 CONSULT Normal [facility] Comprehensive metabolic 2000 panelon 05-24-2024 Albumin [Mass/Vol] 3.8 g/dL Low 3.9-4.9 [facility] Comment on above: Order Comment: Speci men Type: BLOOD SPECIMENOrdering Facility: [facility] Address: [address] [place] [address] Performed By: #### 1 9123-9, 35672-3, 12129-9 ####LERNER LABORATORYCLIA [id number] [place] [address] [place] ALP [Catalytic activity/Vol] 105 U/L Normal 38-113 [facility] Comment on above: Order Comment: Speci men Type: BLOOD SPECIMENOrdering Facility: [facility] Address: [address] [place] [address] Performed By: #### 1 9123-9, 19275-0, 23905-9 ####LERNER LABORATORYCLIA [id number] [address] [place] ALT [Catalytic activity/Vol] 12 U/L Normal 10-54 [facility] Comment on above: Order Comment: Speci men Type: BLOOD SPECIMENOrdering Facility: [facility] Address: [address] [address] Performed By: #### 1 9123-9, 68000-8, 02595-2 ####[facility] LABORATORYCLIA [id number] [address] Anion gap [Moles/Vol] 14 mmol/L Normal 8-15 [facility] Comment on above: Order Comment: Speci men Type: BLOOD SPECIMENOrdering Facility: [facility] Address: [address] [place] [address] Performed By: #### 1 9123-9, 14123-6, 78471-2 ####LERNER LABORATORYCLIA [id number] [address] [place] [facility] AST [Catalytic activity/Vol] 18 U/L Normal 14-40 [facility] Comment on above: Order Comment: Speci men Type: BLOOD SPECIMENOrdering Facility: [facility] Address: [address] [place] [address] Performed By: #### 1 9123-9, 76426-4, 24821-6 ####LERNER LABORATORYCLIA [id number] [address] [place] Bilirubin [Mass/Vol] 0.6 mg/dL Normal 0.2-1.3 [facility] Comment on above: Order Comment: Speci men Type: BLOOD SPECIMENOrdering Facility: [facility] Address: [address] [address] Performed By: #### 1 9123-9, 87459-3, 28548-5 ####LERNER LABORATORYCLIA [id number] [place] [address] [place] Calcium [Mass/Vol] 9.0 mg/dL Normal 8.5-10.2 [facility] Comment on above: Order Comment: Speci men Type: BLOOD SPECIMENOrdering Facility: [facility] Address: [address] [place] [address] Performed By: #### 1 9123-9, 38417-8, 07004-7 ####LERNER LABORATORYCLIA [id number] [place] [address] [place] Chloride [Moles/Vol] 96 mmol/L Low 98-107 [facility] Comment on above: Order Comment: Speci men Type: BLOOD SPECIMENOrdering Facility: [facility] Address: [address] [place] [address] Performed By: #### 1 9123-9, 20374-2, ####[facility] LABORATORYCLIA [id number] [place] [address] [place] CO2 [Moles/Vol] 25 mmol/L Normal 22-30 [facility] Comment on above: Order Comment: Speci men Type: BLOOD SPECIMENOrdering Facility: [facility] Address: [address] [place] [address] Performed By: #### 1 9123-9, 97263-1, 22883-9 ####[facility] LABORATORYCLIA [id number] [place] [address] [place] Creatinine [Mass/Vol] 0.93 mg/dL Normal 0.73-1.22 [facility] Comment on above: Order Comment: Speci men Type: BLOOD SPECIMENOrdering Facility: [facility] Address: [address] [place] [address] Performed By: #### 1 9123-9, 67857-9, 99098-1 ####LERNER LABORATORYCLIA [id number] [place] [address] [place] Creatinine and Glomerular filtration rate.predicted panel (S/P/Bld) 90 mL/min/1.73m??? Normal >=60 [facility] Comment on above: Order Comment: Raudel carrillo Type: BLOOD SPECIMENOrdering Facility: [facility] Address: [address] [place] [address] Result Comment: Sachi mated Glomerular Filtration Rate [...] actual GFR. Performed By: #### 1 9123-9, 58482-2, 09941-8 ####[facility] LABORATORYCLIA [id number] [place] [id number] [place] Glucose [Mass/Vol] 100 mg/dL High 74-99 [facility] Comment on above: Order Comment: Raudel carrillo Type: BLOOD SPECIMENOrdering Facility: [facility] Address: [address] [place] [address] Result Comment: The [place] [employer] (ADA) provides guidance for cutoff [...] Standards of Medical Care in Diabetes 2016, [place] [employer]. Diabetes Care. 2016.39(Suppl 1). Performed By: #### 1 9123-9, 49847-8, 44763-2 ####[facility] LABORATORYCLIA [id number] [place] [address] [place] Potassium [Moles/Vol] 3.4 mmol/L Low 3.7-5.1 [facility] Comment on above: Order Comment: Raudel carrillo Type: BLOOD SPECIMENOrdering Facility: [facility] Address: [address] [place] [address] Performed By: #### 1 9123-9, 91694-2, 42900-3 ####LERNER LABORATORYCLIA [id number] [address] STATES [facility] Protein [Mass/Vol] 7.2 g/dL Normal 6.3-8.0 [facility] Comment on above: Order Comment: Speci men Type: BLOOD SPECIMENOrdering Facility: [facility] Address: [address] [place] [address] Performed By: #### 1 9123-9, 05332-6, 99707-7 ####LERNER LABORATORYCLIA [id number] [place] [address] [place] Sodium [Moles/Vol] 135 mmol/L Low 136-144 [facility] Comment on above: Order Comment: Speci men Type: BLOOD SPECIMENOrdering Facility: [facility] Address: [address] [place] [address] Performed By: #### 1 9123-9, 20421-5, 26978-6 ####[facility] LABORATORYCLIA [id number] [address] [place] Urea nitrogen [Mass/Vol] 9 mg/dL Normal 9-24 [facility] Comment on above: Order Comment: Speci men Type: BLOOD SPECIMENOrdering Facility: [facility] Address: [address] [place] [address] Performed By: #### 1 9123-9, 42307-1, 63801-8 ####LERNER LABORATORYCLIA [id number] [place] [id number] [place] ESR Westergren method (Bld) [Velocity]on 05-24-2024 ESR (Bld) [Velocity] 15 mm/h Normal 0-15 [facility] Comment on above: Order Comment: Speci men Type: BLOOD SPECIMENOrdering Facility: [facility] Address: [address] [place] [address] Performed By: #### 4 537-7 ####[facility] LABCLIA [id number] [facility] [id number] [address] [place] Magnesium SerPl-mCncon 12-07 -2024 Magnesium [Mass/Vol] 2.1 mg/dL Normal 1.7-2.3 [facility] Comment on above: Order Comment: Speci men Type: BLOOD SPECIMENOrdering Facility: [facility] Address: [address] [place] [address] Performed By: #### 1 9123-9, 11767-2, 78758-0 ####[facility] LABORATORYCLIA [id number] [place] [address] [place] ALLIED HEALTHon 05-23-2024 ALLIED HEALTH Normal [facility] Bacteria Wnd Culton 05-23-20 24 Bacteria identified Cx Nom (Wound) Abnormal [facility] Comment on above: Performed By: #### 6 462-6 ####[facility] LABCLIA [id number] [address] AV[id number] [place] [address] [place] CBC W Auto Differential pane l (Bld)on 05-23-2024 Basophils (Bld) [#/Vol] 0.07 10*3/uL Normal <0.11 [facility] Comment on above: Order Comment: Speci men Type: BLOOD SPECIMENOrdering Facility: [facility] Address: [address] [place] [address] Performed By: #### 5 7021-8 ####LERNER LABORATORYCLIA [id number] [address] STATES [facility] Basophils/100 WBC (Bld) 0.7 % Normal [facility] Comment on above: Order Comment: Speci men Type: BLOOD SPECIMENOrdering Facility: [facility] Address: [address] [place] [address] Performed By: #### 5 7021-8 ####LERNER LABORATORYCLIA [id number] [place] [address] [place] Differential cell count method Nom (Bld) Auto Normal [facility] Comment on above: Order Comment: Speci men Type: BLOOD SPECIMENOrdering Facility: [facility] Address: [address] [place] [address] Performed By: #### 5 7021-8 ####LERNER LABORATORYCLIA [id number] [place] [address] [place] Eosinophils (Bld) [#/Vol] 10*3/uL Normal <0.46 [facility] Comment on above: Order Comment: Speci men Type: BLOOD SPECIMENOrdering Facility: [facility] Address: [address] [place] [address] Performed By: #### 5 7021-8 ####LERNER LABORATORYCLIA [id number] [address] Eosinophils/100 WBC (Bld) 0.2 % Normal [facility] Comment on above: Order Comment: Speci men Type: BLOOD SPECIMENOrdering Facility: [facility] Address: [address] [place] [address] Performed By: #### 5 7021-8 ####LERNER LABORATORYCLIA [id number] [address] [place] Erythrocyte distribution width (RBC) [Ratio] 15.6 % High 11.5-15.0 [facility] Comment on above: Order Comment: Speci men Type: BLOOD SPECIMENOrdering Facility: [facility] Address: [address] [place] [address] Performed By: #### 5 7021-8 ####LERNER LABORATORYCLIA [id number] [address] Hematocrit (Bld) [Volume fraction] 48.5 % Normal 39.0-51.0 [facility] Comment on above: Order Comment: Speci men Type: BLOOD SPECIMENOrdering Facility: [facility] Address: [address] [place] [address] Performed By: #### 5 7021-8 ####LERNER LABORATORYCLIA [id number] [address] Hemoglobin (Bld) [Mass/Vol] 15.8 g/dL Normal 13.0-17.0 [facility] Comment on above: Order Comment: Speci men Type: BLOOD SPECIMENOrdering Facility: [facility] Address: [address] [place] [address] Performed By: #### 5 7021-8 ####LERNER LABORATORYCLIA [id number] [address] Immature granulocytes (Bld) [#/Vol] 0.05 10*3/uL Normal <0.10 [facility] Comment on above: Order Comment: Speci men Type: BLOOD SPECIMENOrdering Facility: [facility] Address: [address] [place] [address] Performed By: #### 5 7021-8 ####LERNER LABORATORYCLIA [id number] [address] Immature granulocytes/100 WBC (Bld) 0.5 % Normal [facility] Comment on above: Order Comment: Speci men Type: BLOOD SPECIMENOrdering Facility: [facility] Address: [address] [place] [address] Performed By: #### 5 7021-8 ####LERNER LABORATORYCLIA [id number] [address] [place] Lymphocytes (Bld) [#/Vol] 1.45 10*3/uL Normal 1.00-4.00 [facility] Comment on above: Order Comment: Speci men Type: BLOOD SPECIMENOrdering Facility: [facility] Address: [address] [place] [address] Performed By: #### 5 7021-8 ####LERNER LABORATORYCLIA [id number] [address] Lymphocytes/100 WBC (Bld) 13.8 % Normal [facility] Comment on above: Order Comment: Speci men Type: BLOOD SPECIMENOrdering Facility: [facility] Address: [address] [place] [address] Performed By: #### 5 7021-8 ####LERNER LABORATORYCLIA [id number] [address] MCH (RBC) [Entitic mass] 27.5 pg Normal 26.0-34.0 [facility] Comment on above: Order Comment: Speci men Type: BLOOD SPECIMENOrdering Facility: [facility] Address: [address] [place] [address] Performed By: #### 5 7021-8 ####LERNER LABORATORYCLIA [id number] [place] [id number] [place] MCHC (RBC) [Mass/Vol] 32.6 g/dL Normal 30.5-36.0 [facility] Comment on above: Order Comment: Speci men Type: BLOOD SPECIMENOrdering Facility: [facility] Address: [address] [place] [address] Performed By: #### 5 7021-8 ####LERNER LABORATORYCLIA [id number] [address] [place] MCV (RBC) [Entitic vol] 84.5 fL Normal 80.0-100.0 [facility] Comment on above: Order Comment: Speci men Type: BLOOD SPECIMENOrdering Facility: [facility] Address: [address] [place] [address] Performed By: #### 5 7021-8 ####LERNER LABORATORYCLIA [id number] [place] [address] [place] Monocytes (Bld) [#/Vol] 1.07 10*3/uL High <0.87 [facility] Comment on above: Order Comment: Speci men Type: BLOOD SPECIMENOrdering Facility: [facility] Address: [address] [place] [address] Performed By: #### 5 7021-8 ####LERNER LABORATORYCLIA [id number] [address] Monocytes/100 WBC (Bld) 10.2 % Normal [facility] Comment on above: Order Comment: Speci men Type: BLOOD SPECIMENOrdering Facility: [facility] Address: [address] [place] [address] Performed By: #### 5 7021-8 ####LERNER LABORATORYCLIA [id number] [place] [address] [place] Neutrophils (Bld) [#/Vol] 7.85 10*3/uL High 1.45-7.50 [facility] Comment on above: Order Comment: Speci men Type: BLOOD SPECIMENOrdering Facility: [facility] Address: [address] [place] [address] Performed By: #### 5 7021-8 ####LERNER LABORATORYCLIA [id number] [address] [place] Neutrophils/100 WBC (Bld) 74.6 % Normal [facility] Comment on above: Order Comment: Speci men Type: BLOOD SPECIMENOrdering Facility: [facility] Address: [facility] [place] [address] Performed By: #### 5 7021-8 ####LERNER LABORATORYCLIA [id number] [place] [address] [place] Nucleated RBC (Bld) [#/Vol] 10*3/uL Normal <0.01 [facility] Comment on above: Order Comment: Speci men Type: BLOOD SPECIMENOrdering Facility: [facility] Address: [address] [place] [address] Performed By: #### 5 7021-8 ####LERNER LABORATORYCLIA [id number] [address] [place] Nucleated RBC/100 WBC (Bld) [Ratio] 0.0 /100 WBC Normal [facility] Comment on above: Order Comment: Speci men Type: BLOOD SPECIMENOrdering Facility: [facility] Address: [address] [place] [address] Performed By: #### 5 7021-8 ####LERNER LABORATORYCLIA [id number] [address] [place] Platelet mean volume (Bld) [Entitic vol] 9.9 fL Normal 9.0-12.7 [facility] Comment on above: Order Comment: Speci men Type: BLOOD SPECIMENOrdering Facility: [facility] Address: [address] [place] [address] Performed By: #### 5 7021-8 ####LERNER LABORATORYCLIA [id number] [place] [address] [place] Platelets (Bld) [#/Vol] 298 10*3/uL Normal 150-400 [facility] Comment on above: Order Comment: Speci men Type: BLOOD SPECIMENOrdering Facility: [facility] Address: [address] [place] [address] Performed By: #### 5 7021-8 ####LERNER LABORATORYCLIA [id number] [place] [address] [place] [facility] RBC (Bld) [#/Vol] 5.74 10*6/uL Normal 4.20-6.00 [facility] Comment on above: Order Comment: Speci men Type: BLOOD SPECIMENOrdering Facility: [facility] Address: [address] [place], [place] [address] Performed By: #### 5 7021-8 ####LERNER LABORATORYCLIA [id number] [address] [facility] WBC (Bld) [#/Vol] 10.51 10*3/uL Normal 3.70-11.00 [facility] Comment on above: Order Comment: Speci men Type: BLOOD SPECIMENOrdering Facility: [facility] Address: [address] [place], [place] [address] Performed By: #### 5 7021-8 ####[facility] LABORATORYCLIA [id number] [address] CONSULT PROGon 05-23-2024 CONSULT PROG Normal [facility] CRP SerPl-mCncon 05-23-2024 CRP [Mass/Vol] 1.3 mg/dL High <0.9 [facility] Comment on above: Order Comment: Speci men Type: BLOOD SPECIMENOrdering Facility: [facility] Address: [address] [place], [place] [address] Performed By: #### 2 4323-8, 1987-10 ####[facility] LABORATORYCLIA [id number] [place] [id number] [facility] Comprehensive metabolic 2000 panelon 05-23-2024 Albumin [Mass/Vol] 4.0 g/dL Normal 3.9-4.9 [facility] Comment on above: Order Comment: Speci men Type: BLOOD SPECIMENOrdering Facility: [facility] Address: [address] [place], [place] [address] Performed By: #### 2 4323-8, 1987-10 ####[facility] LABORATORYCLIA [id number] [address] [place] ALP [Catalytic activity/Vol] 122 U/L High 38-113 [facility] Comment on above: Order Comment: Speci men Type: BLOOD SPECIMENOrdering Facility: [facility] Address: [address] [place] [id number] Performed By: #### 2 4323-01, 1987-10 ####LERNER LABORATORYCLIA [id number] [address] ALT [Catalytic activity/Vol] 13 U/L Normal 10-54 [facility] Comment on above: Order Comment: Speci men Type: BLOOD SPECIMENOrdering Facility: [facility] Address: [address] [place] [address] Performed By: #### 2 4323-01, 1987-10 ####LERNER LABORATORYCLIA [id number] [address] Anion gap [Moles/Vol] 21 mmol/L High 8-15 [facility] Comment on above: Order Comment: Speci men Type: BLOOD SPECIMENOrdering Facility: [facility] Address: [address] [place] [address] Performed By: #### 2 4323-01, 1987-10 ####LERNER LABORATORYCLIA [id number] [address] STATES [facility] AST [Catalytic activity/Vol] Normal [facility] Comment on above: Order Comment: Speci men Type: BLOOD SPECIMENOrdering Facility: [facility] Address: [address] [place] [address] Result Comment: Unab le to assay due to interference from hemolysis. Suggest reorder as clinically indicated. Performed By: #### 2 4323-01, 1987-10 ####LERNER LABORATORYCLIA [id number] [address] Bilirubin [Mass/Vol] 0.6 mg/dL Normal 0.2-1.3 [facility] Comment on above: Order Comment: Speci men Type: BLOOD SPECIMENOrdering Facility: [facility] Address: [address] [place] [id number] Performed By: #### 2 4323-01, 1987-10 ####LERNER LABORATORYCLIA [id number] [place] [address] [place] Calcium [Mass/Vol] 9.6 mg/dL Normal 8.5-10.2 [facility] Comment on above: Order Comment: Speci men Type: BLOOD SPECIMENOrdering Facility: [facility] Address: [address] [place] [address] Performed By: #### 2 43208-23, 1987-10 ####LERNER LABORATORYCLIA [id number] [place] [address] [place] Chloride [Moles/Vol] 94 mmol/L Low 98-107 [facility] Comment on above: Order Comment: Speci men Type: BLOOD SPECIMENOrdering Facility: [facility] Address: [address] [place] [address] Performed By: #### 2 43208-23, 1987-10 ####LERNER LABORATORYCLIA [id number] [place] [address] [place] CO2 [Moles/Vol] 20 mmol/L Low 22-30 [facility] Comment on above: Order Comment: Speci men Type: BLOOD SPECIMENOrdering Facility: [facility] Address: [address] [place] [address] Performed By: #### 2 4323-01, 1987-10 ####LERNER LABORATORYCLIA [id number] [place] [address] [place] Creatinine [Mass/Vol] 0.76 mg/dL Normal 0.73-1.22 [facility] Comment on above: Order Comment: Speci men Type: BLOOD SPECIMENOrdering Facility: [facility] Address: [address] [place] [address] Performed By: #### 2 4323-01, 1987-10 ####LERNER LABORATORYCLIA [id number] [address] [place] Creatinine and Glomerular filtration rate.predicted panel (S/P/Bld) 99 mL/min/1.73m??? Normal >=60 [facility] Comment on above: Order Comment: Speci men Type: BLOOD SPECIMENOrdering Facility: [facility] Address: [address] [place] [address] Result Comment: Sachi mated Glomerular Filtration Rate [...] GFR. Performed By: #### 2 43208-23, 1987-10 ####[facility] LABORATORYCLIA [id number] [place] [address] [place] Glucose [Mass/Vol] 90 mg/dL Normal 74-99 [facility] Comment on above: Order Comment: Raudel carrillo Type: BLOOD SPECIMENOrdering Facility: [facility] Address: [address] [place], [place] [address] Result Comment: The [place] [employer] (ADA) provides guidance for cutoff [...] Standards of Medical Care in Diabetes 2016, [place] [employer]. Diabetes Care. 2016.39(Suppl 1). Performed By: #### 2 4323-01, 1987-10 ####[facility] LABORATORYCLIA [id number] [place] [address] [place] Potassium [Moles/Vol] 4.3 mmol/L Normal 3.7-5.1 [facility] Comment on above: Order Comment: Raudel carrillo Type: BLOOD SPECIMENOrdering Facility: [facility] Address: [address] [place] [id number] Performed By: #### 2 43208-23, 1987-10 ####[facility] LABORATORYCLIA [id number] [place] [address] [place] Protein [Mass/Vol] 8.0 g/dL Normal 6.3-8.0 [facility] Comment on above: Order Comment: Speci men Type: BLOOD SPECIMENOrdering Facility: [facility] Address: [address] [place], [place] [address] Performed By: #### 2 4323-8, 1987-10 ####LERNER LABORATORYCLIA [id number] [place] [address] [place] Sodium [Moles/Vol] 135 mmol/L Low 136-144 [facility] Comment on above: Order Comment: Speci men Type: BLOOD SPECIMENOrdering Facility: [facility] Address: [address] [place], [place] [address] Performed By: #### 2 4323-8, 1987-10 ####LERNER LABORATORYCLIA [id number] [place] [address] [place] Urea nitrogen [Mass/Vol] 9 mg/dL Normal 9-24 [facility] Comment on above: Order Comment: Speci men Type: BLOOD SPECIMENOrdering Facility: [facility] Address: [address] [place], [place] [address] Performed By: #### 2 4323-8, 1987-10 ####LERNER LABORATORYCLIA [id number] [place] [id number] [facility] [place] ED NOTEon 05-23-2024 ED NOTE HNO ID: [id number] Author: GLENROY SNYDER RN Service: ? Author Type: Registered Nurse Type: ED Notes Filed: 05/23/2024 20:49 Note Text: Telephone report handoff to Maximilian SCHROEDER [facility] ED NOTE HNO ID: [id number] Author: ERASMO GARVEY RN Service: ? Author Type: Registered Nurse Type: ED Notes Filed: 05/23/2024 16:41 Note Text: Bed: ED-02 Expected date: Expected time: Means of arrival: [facility] Fire/EMS Comments: [facility] ED PROV NOTEon 05-23-2024 ED PROV NOTE [facility] HISTORY PHYSICALon HISTORY PHYSICAL [facility] PT panel Coag (PPP)on 2023 INR Coag (PPP) [Relative time] 1.1 {INR} Normal 0.9-1.3 [facility] Comment on above: Order Comment: Raudel carrillo Type: BLOOD SPECIMENOrdering Facility: [facility] Address: [address] [place] [id number] Result Comment: Ania min K Antagonist (VKA) Therapeutic Range: INR 2 to 3 (Target INR of 2.5)Note: For patients treated with VKA drugs, such as warfarin, the [place] [employer] 2012 Guideline recommends [...] of 3).Wesley GH, et al. Chest 2012, 141:7S-47SNishimura RA, et al. [facility] 2017, 70: 252-289 Performed By: #### 3 4528-0 ####[facility] LABORATORYCLIA [id number] [place] [address] [place] PT Coag (PPP) [Time] 12.2 s Normal 9.7-13.0 [facility] Comment on above: Order Comment: Raudel carrillo Type: BLOOD SPECIMENOrdering Facility: [facility] Address: [address] [place] [address] Performed By: #### 3 4528-0 ####[facility] LABORATORYCLIA [id number] [place] [address] [place] SEPSIS LACTATE W/ REFLEX (IN ITIAL)on 05-23-2024 Lactate [Moles/Vol] 2.1 mmol/L High 0.5-2.0 [facility] Comment on above: Order Comment: Raudel carrillo Type: BLOOD SPECIMENOrdering Facility: [facility] Address: [address] [place] [address] Performed By: #### S LACTR ####[facility] LABORATORYCLIA [id number] [place] [address] [place] SEPSIS LACTATE W/ REFLEX (SE COND)on 05-23-2024 Lactate [Moles/Vol] 1.6 mmol/L Normal 0.5-2.0 [facility] Comment on above: Order Comment: Speci men Type: BLOOD SPECIMENOrdering Facility: [facility] Address: [facility] [place] [address] Performed By: #### S LACT2 ####[facility] LABORATORYCLIA [id number] [place] [address] [place] XR FOOT 3V AP/LAT/OBL LTon 1 07-24-2023 XR FOOT 3V AP/LAT/OBL LT Normal [facility] Emergency Department Summary on 05-02-2024 Emergency Department Summary [facility] Medical Records Department [address] [place] [address] Emergency Department Summary 05/02/24 MR#: [id number] Acct: [id number] Name: MITUL OAKES Rep #: [id number] : [id number] 68 From: Giuliano Cisneros MD PCP: [facility] Status:DEP ER Location: ED HPI History of [...] 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 [facility] Medical History Pulmonary embolus Coronary artery disease [...] to t (more content not included)... Normal [facility] Toe(s) Min 2 Viewson 05-02- 024 Toe(s) Min 2 Views [facility] Services [address] [place] [address] Toe(s) Min 2 Views MR#: [id number] Acct: [id number] Name: MITUL OAKES Rep #: [id number] : [id number] M [id number] From: Faye ag MD PCP: [facility] Status: REG ER Study: Toe(s) Min 2 Views Date of Exam: 05/02/24 Exam# [id number] Ordering Dr: Mildred Ferrari [id number] HISTORY: laceration 1st toe. TECHNIQUE: XR Toes [...] Signed: Faye Acosta MD at 14:57 EST Reading Location ID and State: [facility] / [place] Tel , Service support , CC: [place]; [facility] Career Development Coordinator: Signed Normal [facility] Absolute lymphocyte countOrd ered By: Christopher Fontaine on 11-19-2022 Lymphocytes Auto (Unsp spec) [#/Vol] 2.41 10*3/uL 0.83-4.51 [facility] Basophil percentageOrdered B y: Christopher Fontaine on 11-19-2022 Basophils/100 WBC (Bld) 1.0 % 0-1 [facility] Chloride [Moles/Vol] 107 mmol/L 98-107 [facility] Eosinophils/100 WBC (Bld) 2.0 % 0-5 [facility] Glucose [Mass/Vol] 223 mg/dL 74-106 [facility] Comment on above: Glucose result great er than or equal to 200 mg/dLsuggests DIABETES MELLITUS per A.D.A. criteria. Lactate [Moles/Vol] 2.3 mmol/L 0.4-2.0 [facility] Comment on above: Critical Result(s) C alled at: 06:09:49 11/19/2022 by: Joellen Cole. Results read back by same. Neutrophils (Bld) [#/Vol] 5.4 10*3/uL 2.0-7.7 [facility] Neutrophils/100 WBC (Bld) 59.0 % 47-70 [facility] Potassium [Moles/Vol] 3.9 mmol/L 3.5-5.1 [facility] Sodium [Moles/Vol] 136 mmol/L 136-145 [facility] WBC (Bld) [#/Vol] 9.2 10*3/uL 4.4-11.0 [facility] Blood erythrocytes count (nu mber/volume)Ordered By: Christopher Fontaine on 11-19-2022 RBC (Bld) [#/Vol] 5.15 10*6/uL 4.6-6.2 [facility] Blood hemoglobin measurement (mass/volume)Ordered By: Christopher Fontaine on 11-19-2022 Hemoglobin (Bld) [Mass/Vol] 14.9 g/dL 13.0-16.5 [facility] Blood lymphocytes/100 leukoc ytesOrdered By: Christopher Fontaine on 11-19-2022 Lymphocytes/100 WBC (Bld) 26.2 % 19-41 [facility] Blood monocytes/100 leukocyt esOrdered By: Christopher Fontaine on 11-19-2022 Monocytes/100 WBC (Bld) 11.3 % 0-10 [facility] Blood platelet mean volumeOr dered By: Christopher Fontaine on 11-19-2022 Platelet mean volume (Bld) [Entitic vol] 9.9 fL 6.2-12.0 [facility] Determination of erythrocyte mean corpuscular volume (MCV)Ordered By: Christopher Fontaine on 11-19-2022 MCV (RBC) [Entitic vol] 90.3 fL 80-94 [facility] Hematocrit Auto (Bld) [Volum e fraction]Ordered By: Christopher Fontaine on 11-19-2022 Hematocrit (Bld) [Volume fraction] 46.5 % 40-54 [facility] INR in Blood by Coagulation assayOrdered By: Christopher Fontaine on 11-19-2022 INR Coag (Bld) [Relative time] 1.5 {INR} [facility] Laboratory - Chemistry and C hemistry - challengeOrdered By: Christopher Fontaine on 11-19-2022 CO2 [Moles/Vol] 23.0 mmol/L 21.0-32.0 [facility] Urea nitrogen/Creatinine [Mass ratio] 24.8 mg/mg 10-20 [facility] Laboratory - CoagulationOrde red By: Christopher Fontaine on 11-19-2022 aPTT Coag (Bld) [Time] 27.7 s 24.1-36.2 [facility] PT Coag (PPP) [Time] 17.7 s 11.7-14.9 [facility] Laboratory - Hematology and Cell countsOrdered By: Christopher Fontaine on 11-19-2022 Erythrocyte distribution width (RBC) [Entitic vol] 48.6 fL 35.1-43.9 [facility] Erythrocyte distribution width (RBC) [Ratio] 14.6 % 11.6-14.6 [facility] Immature granulocytes/100 WBC (Bld) 0.500 % 0.0-0.9 [facility] Comment on above: IG% - Immature Granu locytes (promyelocytes, myelocytes and metamyelocytes) > 1% indicates that a LEFT SHIFT is Present. MCH (RBC) [Entitic mass] 28.9 pg 27.0-32.0 [facility] Nucleated RBC/100 WBC (Bld) [Ratio] 0 % 0-5 [facility] MCHC Auto (RBC) [Mass/Vol]Or dered By: Christopher Fontaine on 11-19-2022 MCHC (RBC) [Mass/Vol] 32.0 g/dL 32-36 [facility] No Panel InformationOrdered By: Christopher Fontaine on 11-19-2022 Estimated Creatinine Clearance Calc 95.55 ml/min [facility] Estimated GFR (MDRD) Amer 123 mL/min >60 [facility] Comment on above: GFR Calc Estimated GFR (MDRD) Non-Af Amer 102 mL/min >60 [facility] Comment on above: Non- GFR Calc Platelets bldOrdered By: Abe Fontaine on 11-19-2022 Platelets (Bld) [#/Vol] 238 10*3/uL 150-450 [facility] Serum or plasma calcium wandy urement (mass/volume)Ordered By: Christopher Fontaine on 11-19-2022 Calcium [Mass/Vol] 9.0 mg/dL 8.5-10.1 [facility] Serum or plasma creatinine m easurement (mass/volume)Ordered By: Christopher Fontaine on 11-19-2022 Creatinine [Mass/Vol] 0.81 mg/dL 0.70-1.30 [facility] Comment on above: The validity of the calculated GFR & GFRAA in patients over 70 years has not been determined. Clinical correlation is essential. Serum or plasma urea nitroge n measurement (mass/volume)Ordered By: Christopher Fontaine on 11-19-2022 Urea nitrogen [Mass/Vol] 20 mg/dL 7-18 [facility] Thin prep Papanicolaou smear with manual screeningOrdered By: Christopher Fontaine on 11-19-2022 Thin prep Papanicolaou smear with manual screening 6 -15 [facility] Vital Signs Date Time Vital Sign Value Performing Clinician Facility 10-14-2024 12:51-0400 Body temperature 97.2 [degF] Jeanne Whitehead MD Work Phone: [facility] 10-14-2024 12:51-0400 Diastolic blood pressure 70 mm[Hg] Jeanne Whitehead MD Work Phone: [facility] 10-14-2024 12:51-0400 Heart rate 69 /min Jeanne Whitehead MD Work Phone: [facility] 10-14-2024 12:51-0400 SaO2% (BldA) [Mass fraction] 95 % Jeanne Whitehead MD Work Phone: [facility] 10-14-2024 12:51-0400 Systolic blood pressure 109 mm[Hg] Jeanne Whitehead MD Work Phone: [facility] 09-16-2024 14:01-0400 Body temperature 96.49 [degF] Jeanne Whitehead MD Work Phone: [facility] 09-16-2024 14:01-0400 Diastolic blood pressure 78 mm[Hg] Jeanne Whitehead MD Work Phone: [facility] 09-16-2024 14:01-0400 Heart rate 65 /min Jeanne Whitehead MD Work Phone: [facility] 09-16-2024 14:01-0400 SaO2% (BldA) [Mass fraction] 95 % Jeanne Whitehead MD Work Phone: [facility] 09-16-2024 14:01-0400 Systolic blood pressure 121 mm[Hg] Jeanne Whitehead MD Work Phone: [facility] 07-25-2024 11:38-0500 Diastolic blood pressure 76 mm[Hg] Dari Esparza DO Work Phone: [facility] 07-25-2024 11:38-0500 Heart rate 65 /min Dari Parmarle DO Work Phone: [facility] 07-25-2024 11:38-0500 SaO2% (BldA) [Mass fraction] 96 % Dari Esparza DO Work Phone: [facility] 07-25-2024 11:38-0500 Systolic blood pressure 132 mm[Hg] Dari Esparza DO Work Phone: [facility] 07-15-2024 14:11-0500 Body temperature 96.91 [degF] Jeanne Whitehead MD Work Phone: [facility] 07-15-2024 14:11-0500 Diastolic blood pressure 84 mm[Hg] Jeanne Whitehead MD Work Phone: [facility] 07-15-2024 14:11-0500 Heart rate 64 /min Jeanne Whitehead MD Work Phone: [facility] 07-15-2024 14:11-0500 Respiratory rate 20 /min Jeanne Whitehead MD Work Phone: [facility] 07-15-2024 14:11-0500 SaO2% (BldA) [Mass fraction] 95 % Jeanne Whitehead MD Work Phone: [facility] 07-15-2024 14:11-0500 Systolic blood pressure 134 mm[Hg] Jeanne Whitehead MD Work Phone: [facility] 07-10-2024 15:07-0500 Body temperature 96.8 [degF] Brandon Hammer DPM Work Phone: [facility] 07-10-2024 15:07-0500 Diastolic blood pressure 90 mm[Hg] Brandon Hammer DPM Work Phone: [facility] 07-10-2024 15:07-0500 Heart rate 70 /min Brandon Hammer DPM Work Phone: [facility] 07-10-2024 15:07-0500 SaO2% (BldA) [Mass fraction] 97 % Brandon Hammer DPM Work Phone: [facility] 07-10-2024 15:07-0500 Systolic blood pressure 191 mm[Hg] Brandon Hammer DPM Work Phone: [facility] 11-19-2022 06:56-0400 Diastolic blood pressure 70 mm[Hg] [facility] 11-19-2022 06:56-0400 Heart rate 74 /min [facility] 11-19-2022 06:56-0400 Respiratory rate 20 /min [facility] 11-19-2022 06:56-0400 SaO2% (BldA) [Mass fraction] 99 % [facility] 11-19-2022 06:56-0400 Systolic blood pressure 142 mm[Hg] [facility] 11-19-2022 05:03-0400 Body height 180.34 cm [facility] 11-19-2022 05:03-0400 Body mass index (BMI) [Ratio] 35.7 kg/m2 [facility] 11-19-2022 05:03-0400 Body temperature 95.4 [degF] [facility] 11-19-2022 05:03-0400 Body weight 116.2 kg [facility] 12-20-2021 12:13-0400 Respiratory rate 18 /min [facility] Work Phone: 12-20-2021 10:58-0400 Body height 180.34 cm [facility] Work Phone: 12-20-2021 10:58-0400 Body mass index (BMI) [Ratio] 36.9 kg/m2 [facility] Work Phone: 12-20-2021 10:58-0400 Body temperature 96.2 [degF] [facility] Work Phone: 12-20-2021 10:58-0400 Body weight 120.2 kg [facility] Work Phone: 12-20-2021 10:58-0400 Diastolic blood pressure 96 mm[Hg] [facility] Work Phone: 12-20-2021 10:58-0400 Heart rate 83 /min [facility] Work Phone: 12-20-2021 10:58-0400 SaO2% (BldA) [Mass fraction] 99 % [facility] Work Phone: 12-20-2021 10:58-0400 Systolic blood pressure 139 mm[Hg] [facility] Work Phone: Encounters Encounter Date Encounter Type Care Provider Facility Start: 02-04-2025 [facility] Facility:[facility] Start: 02-02-2025 [facility] Facility:[facility] Start: 01-28-2025 [facility] Facility:[facility] Start: 01-05-2025 [facility] Facility:[facility] Start: 12-22-2024 [facility] Facility:[facility] Start: 12-15-2024 [facility] Facility:[facility] Start: 12-10-2024 [facility] Facility:[facility] Start: 12-03-2024 End: 12-08-2024 Evaluation and management of inpatient SARAH VEGA Facility:[facility] Start: 12-03-2024 [facility] Facility:[facility] Start: 12-01-2024 ambulatory Melo RHOADES Facil ity:[facility] Start: 11-27-2024 ambulatory Melo RHOADES Facil ity:[facility] Start: 11-26-2024 [facility] Facility:[facility] Start: 11-24-2024 [facility] Facility:[facility] Start: 10-27-2024 End: 10-27-2024 [facility] Work Phone: Start: 10-27-2024 End: 10-27-2024 Departed Referred Melo Barrios - [address] Start: 10-27-2024 Registered Referred Melo Barrios - [address] Start: 10-27-2024 End: 10-27-2024 [facility] Facility:[facility] Start: 10-20-2024 End: 10-20-2024 [facility] Work Phone: Start: 10-20-2024 End: 10-20-2024 Departed Referred Melo Barrios - [address] Start: 10-20-2024 Registered Referred Melo Barrios - [address] Start: 10-20-2024 End: 10-20-2024 [facility] Facility:[facility] Start: 10-14-2024 End: 10-14-2024 Patient encounter procedure [...] Start: 10-14-2024 End: 10-14-2024 ambulatory JEANNE WHITEHEAD Facility:[facility] Start: 10-13-2024 End: 10-13-2024 [facility] Work Phone: Start: 10-13-2024 End: 10-13-2024 Departed Referred Melo Barrios - [address] Start: 10-13-2024 Registered Referred Melo Barrios - [address] Start: 10-13-2024 End: 10-13-2024 [facility] Start: 10-06-2024 End: 10-06-2024 ambulatory [facility] Work Phone: Start: 10-06-2024 End: 10-06-2024 Departed Referred Melo Barrios - [address] Start: 10-06-2024 Registered Referred Melo Barrios - [address] Start: 10-06-2024 End: 10-06-2024 [facility] Facility:[facility] Start: 2024 End: 2024 [facility] Work Phone: Start: 2024 End: 2024 Departed Referred Melo Barrios - [address] Start: 2024 Registered Referred Melo Barrios - [address] Start: 2024 End: 2024 [facility] Facility:[facility] Start: 09-24-2024 End: 10-14-2024 Telephone encounter Jeanne Whitehead MD Work Phone: [facility] Comment on above: CoPat Management (FO R IDC USE ONLY) Start: 09-23-2024 End: 09-23-2024 Telephone encounter Jeanne Whitehead MD Work Phone: [facility] Comment on above: Results Start: 09-23-2024 End: 09-23-2024 [facility] Work Phone: Start: 09-23-2024 End: 09-23-2024 Departed Referred Melo Barrios - [address] Start: 09-23-2024 End: 09-23-2024 [facility] Facility:[facility] Start: 09-16-2024 End: 09-16-2024 Patient encounter procedure [...] Start: 09-16-2024 End: 09-16-2024 ambulatory JEANNE WHITEHEAD Facility:[facility] Start: 08-04-2024 [facility] Facility:[facility] Start: 08-04-2024 Registered Referred Melo Barrios - [address] Start: 07-29-2024 [facility] Facility:[facility] Start: 07-29-2024 Registered Referred Melo Barrios - [address] Start: 07-25-2024 End: 07-25-2024 ambulatory DARI ESPARZA Facility:[facility] Start: 07-25-2024 End: 07-25-2024 Patient encounter procedure Dari Esparza DO Work Phone: Vascular Surgery Comment on above: PAD (peripheral pablo ry disease) (HCC) (Primary Dx) Start: 07-21-2024 [facility] Facility:[facility] Start: 07-21-2024 Registered Referred Melo flores Meeker - [address] Start: 07-15-2024 End: 07-15-2024 [...] (HCC) Start: 07-15-2024 End: 07-15-2024 ambulatory MARSHA LUCAS Facility:[facility] Start: 07-15-2024 Registered Referred Melo Carlosworth - [address] Start: 07-14-2024 [facility] Facility:[facility] Start: 07-14-2024 Registered Referred Melo Barrios - [address] Start: 07-11-2024 End: 07-11-2024 Telephone encounter Brandon Rubin DPM Work Phone: Plastic Surgery Comment on above: Patient Update Start: 07-11-2024 [facility] Facility:[facility] Start: 07-11-2024 Registered Referred Melo Carlosworth - [address] Start: 07-10-2024 End: 07-10-2024 Patient encounter procedure Brandon Rubin DPM Work Phone: Plastic Surgery Comment on above: Ulcer of toe of left foot, limited to breakdown of skin (HCC) (Primary Dx) Start: 07-10-2024 End: 07-10-2024 ambulatory UNKNOWN PROVIDER Facility:[facility] Start: 07-07-2024 [facility] Facility:[facility] Start: 07-07-2024 Registered Referred Melo Carlosworth - [address] Start: 07-02-2024 End: 07-02-2024 Emergency department patient visit LONNY WILDER Facility:[facility] Start: 06-27-2024 [facility] Facility:[facility] Start: 06-27-2024 Registered Referred Melo Carlosworth - [address] Start: 06-26-2024 [facility] Facility:[facility] Start: 06-26-2024 Registered Referred Melo Carlosworth - [address] Start: 06-25-2024 [facility] Facility:[facility] Start: 06-24-2024 End: 06-24-2024 ambulatory JEANNE WHITEHEAD Facility:[facility] Start: 06-24-2024 End: 06-24-2024 Patient encounter procedure [...] (peripheral artery disease) (HCC) Start: 06-23-2024 ambulatory [facility] Facility:[facility] Start: 06-19-2024 End: 06-19-2024 ambulatory UNKNOWN PROVIDER Facility:[facility] Start: 06-17-2024 ambulatory [facility] Facility:[facility] Start: 06-16-2024 ambulatory [facility] Facility:[facility] Start: 06-03-2024 End: 06-03-2024 Orders Only Marsha Lucas DO Work Phone: [facility] Comment on above: PAD (peripheral pablo ry disease) (HCC) (Primary Dx) Start: 06-02-2024 End: 06-26-2024 Telephone encounter Jeanne Whitehead MD Work Phone: [facility] Comment on above: COPAT MANAGEMENT FOR IDC USE ONLY (COPAT MANAGEMENT FOR IDC USE ONLY) Start: 06-02-2024 End: 06-03-2024 Evaluation and management of inpatient MARSHA LUCAS Facility:[facility] Start: 05-30-2024 End: 05-30-2024 ambulatory Jeanne Whitehead MD Work Phone: [facility] Comment on above: CoPat Start Start: 05-30-2024 End: 05-30-2024 Telephone encounter Marsha Lucas DO Work Phone: [facility] Comment on above: Orders Start: 05-26-2024 End: 05-26-2024 Orders Only Marsha Lucas DO Work Phone: Vascular Surgery Comment on above: PAD (peripheral pablo ry disease) (HCC) (Primary Dx) Start: 05-23-2024 End: 06-06-2024 Evaluation and management of inpatient LONNY WILDER Facility:[facility] Start: 05-06-2024 End: 05-06-2024 ambulatory Paris Salas NP Facility:[facility] Start: 05-02-2024 End: 05-02-2024 [facility] Start: 05-02-2024 End: 05-02-2024 [facility]ulatory [facility] Start: 04-30-2024 End: 04-30-2024 [facility]ulatory [facility] Start: 04-22-2024 End: 04-22-2024 ambulatory Efewongbe Oleghe Facility:[facility] Start: 04-10-2024 End: 04-10-2024 [facility] Start: 04-04-2024 End: 04-04-2024 ambulatory Efewongbe Oleghe OLS Facility:[facility] Start: 03-26-2024 End: 03-26-2024 ambulatory Paris Salas NP Facility:[facility] Start: 03-21-2024 ambulatory Efewongbe Oleghe OLS Fa cility:[facility] Start: 03-20-2024 End: 03-20-2024 ambulatory Efewongbe Oleghe OLS Facility:[facility] Start: 03-14-2024 ambulatory Efewongbe Oleghe OLS Fa cility:[facility] Start: 03-10-2024 End: 03-10-2024 ambulatory Efewongbe Oleghe OLS Facility:[facility] Start: 03-07-2024 End: 03-07-2024 ambulatory Efewongbe Oleghe OLS Facility:[facility] Start: 02-29-2024 End: 02-29-2024 ambulatory Efewongbe Oleghe OLS Facility:[facility] Start: 02-26-2024 End: 02-26-2024 [facility]ulatory [facility] Start: 02-22-2024 ambulatory Efewongbe Oleghe OLS Fa cility:[facility] Start: 02-15-2024 [facility]ulatory [facility] Start: 02-08-2024 ambulatory Efewongbe Oleghe Facili ty:[facility] Start: 02-07-2024 [facility]ulatory [facility] Start: 11-19-2022 End: 11-19-2022 Emergency department patient visit [facility] Start: 12-20-2021 End: 12-20-2021 Emergency department patient visit [facility] Procedures Date Procedure Procedure Detail Performing Clinician Start: 09-16-2024 Cul bact xcpt urine blood/stool aerobic isol Jeanne Whitehead MD Work Phone: Start: 08-04-2024 Measurement of renal function [facility] Comment on above: GFR Calc Start: 07-29-2024 Measurement of renal function [facility] Comment on above: GFR Calc Start: 07-21-2024 Measurement of C-jaimee ctive protein using high sensitivity technique [facility] Comment on above: C-Reactive Protein ( CRP) provides useful information for thediagnosis, therapy and monitoring of inflammatory processesand associated diseases. For the evaluation of Relative Riskfor Cardiovascular Disease, a High Sensitivity CRP (HSCRP)should be ordered. Start: 07-21-2024 Measurement of renal function [facility] Comment on above: GFR Calc Start: 07-14-2024 Measurement of renal function [facility] Comment on above: GFR Calc Start: 07-11-2024 Measurement of renal function [facility] Comment on above: GFR Calc Start: 07-07-2024 Measurement of renal function [facility] Comment on above: GFR Calc Start: 06-27-2024 Measurement of renal function [facility] Comment on above: GFR Calc Start: 06-26-2024 Measurement of renal function [facility] Comment on above: GFR Calc Start: 06-21-2015 Mechelle Lucas DO Work Phone: Plan of Treatment Date Care Activity Detail Author Start: 07-29-2034 Urine microalbumin profile DTaP,Tdap,Td Vaccine (3 - Td or Tdap) [facility] Start: 10-14-2025 BP Controlled (<130/80) BP Controlle d (<130/80) [facility] Start: 09-16-2025 BP Controlled (<130/80) BP Controlle d (<130/80) [facility] Start: 07-02-2025 Creatinine measurement Serum Creatin ine [facility] Start: 06-19-2025 BP Controlled (<130/80) BP Controlle d (<130/80) [facility] Start: 02-02-2025 End: 02-02-2025 Patient encounter procedure Vascular Surgery Comment on above: PVR arterial US 6 month f/u Start: 01-26-2025 Covid-19 Vaccine ( season) Covid-19 Vaccine () [facility] Start: 10-30-2024 End: 10-30-2024 Patient encounter procedure 10/30/2024 1:00 PM EDT Office Visit Plastic Surgery [address] [place] [address] Brandon Rubin, GEOVANNA [address] [place] [address] Left 2nd toe plantar-offered sooner patient declined Plastic Surgery Comment on above: Left 2nd toe plantar -offered sooner patient declined Start: 10-14-2024 End: 10-14-2024 Patient encounter procedure 10/14/2024 1:00 PM EDT Office Visit Plastic Surgery [address] [place] [address] Jeanne Whitehead MD [address] [address] Left 2nd toe plantar Plastic Surgery Comment on above: Left 2nd toe plantar Start: 09-24-2024 End: 09-24-2024 Patient encounter procedure 09/24/2024 10:30 AM EDT Office Visit Plastic Surgery [address] [place] [address] Brandon Rubin, GEOVANNA [address] [place] [id number] Left 2nd toe plantar Plastic Surgery Comment on above: Left 2nd toe plantar Start: 09-09-2024 End: 09-09-2024 Patient encounter procedure 09/09/2024 1:00 PM EDT Office Visit Plastic Surgery [address] [place] [address] Jeanne Whitehead MD [address] [address] Left Lower Extremity Plastic Surgery Comment on above: Left Lower Extremity Start: 07-30-2024 End: 07-30-2024 Patient encounter procedure 07/30/2024 10:30 AM EST Office Visit Plastic Surgery [address] [place] [address] Scottie Brandon, PEYTONAntoinette [address] [place] [address] Left Lower Extremity Plastic Surgery Comment on above: Left Lower Extremity Start: 07-29-2024 End: 07-29-2024 Patient encounter procedure Vascular Surgery Comment on above: POST ANGIOGRAM FOLLO W UPWITH TESTING Start: 07-25-2024 End: 07-25-2024 Patient encounter procedure 07/25/2024 11:30 AM EST Office Visit Vascular Surgery [address] [address] Stefano Grider MD [address] [address] [address] Recent hospitalization, left great toe osteomyelitis/celluliti s status post amputation, peripheral arterial disease, diabetes Vascular Surgery Comment on above: Recent hospitalizati on, left great toe osteomyelitis/cellulitis status post amputation, peripheral arterial disease, diabetes Start: 07-15-2024 End: 07-15-2024 Patient encounter procedure 07/15/2024 2:30 PM EST Office Visit Plastic Surgery [address] [place] [address] Jeanne Whitehead MD [address] [address] Left Lower Extremity Plastic Surgery Comment on above: Left Lower Extremity Start: 07-15-2024 End: 07-15-2024 Patient encounter procedure Vascular Surgery Comment on above: POST ANGIOGRAM FOLLO W UPWITH TESTING Start: 07-04-2024 End: 06-03-2025 US Lower extremity artery US LEG ARTERIAL PERIPH UNL VAS LAB Vascular Lab Routine PAD (peripheral artery disease) (HCC) Expected: 07/04/2024 (Approximate), Expires: 06/03/2025 [facility] Work Phone: Comment on above: Expected: 07/04/2024 (Approximate), Expires: 06/03/2025 Start: 07-04-2024 End: 06-03-2025 US.doppler Extremity arteries - bilateral for physiologic artery study PVR ANK PRESS GRACIELA VAS LAB Vascular Lab Routine PAD (peripheral artery disease) ([facility]) Expected: 07/04/2024 (Approximate), Expires: 06/03/2025 [facility] Comment on above: Expected: 07/04/2024 (Approximate), Expires: 06/03/2025 Start: 07-02-2024 End: 07-02-2024 Patient encounter procedure 07/02/2024 9:00 AM EST Office Visit Plastic Surgery [address] [place] [address] Brandon Rubin, DP [address] [place] [address] [phone] Left Lower Extremity Plastic Surgery Comment on above: Left Lower Extremity Start: 06-18-2024 Advance Directive Discussion Advance Directive Discussion [facility] Start: 06-05-2024 End: 06-05-2024 Amputation metatarsal w/toe single AMPUTATION TOE(S) Osteomyelitis of ankle or foot, acute, left ([facility]) 06/05/2024 8:54 AM EST ME OR Start: 06-05-2024 End: 06-05-2024 Evaluation and management of inpatient 06/05/2024 8:54 AM EST - 06/05/2024 10:17 AM EST Surgery [facility] [address] [place] [address] Brandon Rubin, DP [address] [place] [address] [phone] AMPUTATION TOE(S) [facility] Comment on above: AMPUTATION TOE(S) Start: 06-02-2024 End: 06-02-2024 Evaluation and management of inpatient 06/02/2024 2:00 PM EST - 06/02/2024 3:55 PM EST [facility] [address] [place] [address] Marsha Lucas DO [address] [place] [address] ANGIOGRAM EXTREMITY LOWER [facility] Comment [...] EST Hospital Encounter [facility] [address] [place] [address] Marsha Lucas DO [address] [place] [address] 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], [...] artery disease) (HCC) 05/27/2024 3:10 PM EST UT CATH Start: 05-27-2024 End: 05-27-2024 Evaluation and management of inpatient 05/27/2024 3:10 PM EST - 05/27/2024 5:15 PM EST Surgery [facility] [employer] [address] [place] [address] Marsha Lucas DO [address] [place] [address] ANGIOGRAM EXTREMITY UNILATERAL RADIOLOGICAL [facility] [employer] Comment on above: ANGIOGRAM EXTREMITY UNILATERAL RADIOLOGICAL [...] Vaccine ( season) Covid-19 Vaccine ( season) [facility] Start: 02-17-2024 Influenza vaccination Influenza Vacc ine (#1) [facility] Start: 06-18-2023 Advance Directive Discussion Advance Directive Discussion [facility] Start: 03-24-2023 Urine microalbumin profile DTaP,Tdap,Td Vaccine (2 - Tdap) [facility] Start: 11-19-2022 CT of abdominal aort a with contrast [facility] Start: 2016 RSV Vaccine (1 - Ris k 60-74 years 1-dose series) RSV Vaccine (1 - Risk 60-74 years 1-dose series) [facility] Start: 06-21-2016 Screening for malign ant neoplasm of colon [facility] Start: 10-03-2011 Prostate specific antigen measurement Prostate Cancer Screening Discussion [facility] Start: 2006 Screening for malign ant neoplasm of lung Lung Cancer Screening [facility] Start: 2001 Prostate specific antigen measurement Prostate Cancer Screening Discussion [facility] Start: 2001 Screening for malign ant neoplasm of colon [facility] Start: 1986 Zoledronic acid therapy Alpha- 1 Antitrypsin Deficiency Screening [facility] Start: 1974 Annual PCP Team Decal Transferrer marii Disease Visit Annual PCP Team Chronic Disease Visit [facility] Start: 1974 BP Controlled (<130/80) BP Controlle d (<130/80) [facility] Start: 1974 Hepatitis B surface antibody level LDL Cholesterol [facility] Start: 1974 Hepatitis C screening Hepatitis C Sc junior [facility] Start: 1974 Spirometry Spirometry [facility] Start: 1966 Diabetic foot examination Diabetic Foot Exam [facility] Start: 1966 Glaucoma screening Dilated Retinal E xam [facility] Start: 1966 Hepatitis B screening Urine Albumin:Creatinine Ratio [facility] Start: 1961 Hemoglobin A1c measurement HbA1C [facility] Start: 1956 Abdominal aortic aneurysm screening Abdominal Aortic Aneurysm Screening [facility] Bacteria identified in Wound by Culture BACTERIAL CULTURE AND GRAM STAIN, ABSCESS AND WOUND (AEROBIC CULTURE) Microbiology Routine Cellulitis of toe of left foot 09/16/2024 2:30 PM EDT [facility] Work Phone: Patient Education ED Deep Vein T hrombosis (DVT) [facility] Work Phone: Patient referral [facility] Work Phone: End: 07-25-2025 US Lower extremity artery US LEG ARTERIAL PERIPH UNL VAS LAB Vascular Lab Routine PAD (peripheral artery disease) (HCC) 1 Occurrences starting 07/25/2024 until 07/25/2025 [facility] Work Phone: Comment on above: 1 Occurrences starti ng 07/25/2024 until 07/25/2025 End: 07-25-2025 US.doppler Extremity arteries - bilateral for physiologic artery study PVR ANK PRESS GRACIELA VAS LAB Vascular Lab Routine PAD (peripheral artery disease) ([facility]) 1 Occurrences starting 07/25/2024 until 07/25/2025 [facility] Comment on above: 1 Occurrences starti ng 07/25/2024 until 07/25/2025 Immunizations Immunization Date Immunization Notes Care Provider Fa josefa 05-24-2024 pneumococcal conjuga te (PCV20) vaccine, 20 valent (PREVNAR 20) Marsha Lucas DO Work Phone: [facility] 04-05-2023 influenza virus vacc ine, unspecified formulation Marsha Lucas DO Work Phone: [facility] Payers Date Payer Category Payer Medicare (Managed Care) [facility] MEDICARE [id number] 2024 Medicaid [id number] 2024 Medicaid [id number] 2024 Medicaid [id number] 2024 Self-pay [id number] 2021 Medicare MEDICARE MEDICAR E A AND B [id number] 2021-[facility] [phone] [place] [address] Medicare [id number] 2021 Medicare [id number] 2021 Unknown [id number] 1998 Private Health Insurance [id number] Unknown VA AUTH REQUIR ED SEE NOTE [id number] Unknown [id number] 2.16.840.1.100004.3.579.2. 462 Unknown [id number] 2.16.840.1.745786.3.579.2. 462 Unknown [id number] 2.16.840.1.857768.3.579.2. 462 Unknown [id number] 2.16.840.1.412903.3.579.2. 462 Unknown [id number] 2.16.840.1.370904.3.579.2. 462 Unknown [id number] 2.16.840.1.669521.3.579.2. 462 Unknown [id number] 2.16.840.1.778470.3.579.2. 462 Unknown [id number] 2.16.840.1.324396.3.579.2. 462 Unknown [id number] 2.16.840.1.566198.3.579.2. 462 Unknown [id number] 2.16.840.1.698953.3.579.2. 462 Unknown [id number] 2.16.840.1.788733.3.579.2. 462 Unknown [id number] 2.16.840.1.799339.3.579.2. 462 Unknown [id number] 2.16.840.1.126556.3.579.2. 462 Unknown [id number] 2.16.840.1.093949.3.579.2. 462 Unknown [id number] 2.16.840.1.176821.3.579.2. 462 Unknown [id number] 2.16840.1.823216.3.579.2. 462 Unknown [id number] 2.16840.1.404071.3.579.2. 462 Unknown [id number] 2.16840.1.905698.3.579.2. 462 Unknown [id number] 2.16840.1.196757.3.579.2. 462 Unknown [id number] 2.840.1.211952.3.579.2. 462 Unknown [id number] 2.16840.1.151721.3.579.2. 462 Unknown [id number] 2.16840.1.130396.3.579.2. 462 Unknown [id number] 2.16840.1.128669.3.579.2. 462 Unknown [id number] 2.16840.1.408100.3.579.2. 462 Unknown [id number] 2.16840.1.668938.3.579.2. 462 Unknown [id number] 2.16.840.1.905492.3.579.2. 462 Unknown [id number] 2.16.840.1.775155.3.579.2. 462 Unknown [id number] 2.16840.1.964883.3.579.2. 462 Unknown [id number] 2.16.840.1.697854.3.579.2. 462 Unknown [id number] 2.16.840.1.451169.3.579.2. 462 Unknown [id number] 2.16.840.1.027539.3.579.2. 462 Unknown [id number] 2.16.840.1.042050.3.579.2. 462 Unknown [id number] 2.16.840.1.594275.3.579.2. 462 Unknown [id number] 2.16.840.1.840380.3.579.2. 462 Unknown [id number] 2.16.840.1.409819.3.579.2. 462 Unknown [id number] 2.16.840.1.147131.3.579.2. 462 Unknown [id number] 2.16.840.1.849227.3.579.2. 462 Unknown [id number] 2.16.840.1.823907.3.579.2. 462 Unknown [id number] 2.16.840.1.354968.3.579.2. 462 Unknown [id number] 2.16.840.1.122902.3.579.2. 462 Unknown [id number] 2.16.840.1.247816.3.579.2. 462 Unknown [id number] 2.16.840.1.968292.3.579.2. 462 Unknown [id number] 2.16.840.1.136146.3.579.2. 462 Social History Date Type Detail Facility Start: 12-20-2021 End: 11-19-2022 Tobacco smoking status NHIS Unknown if ever smoked [facility] Start: 10-24-2014 None [facility] Start: 09-05-2015 Spouse/ Signif icant Other [facility] Start: 1955 Sex Assigned At Male W [facility] Start: 05-10-1975 End: 06-19-2024 Tobacco smoking status NHIS Heavy tobacco smoker [facility] Start: 05-10-1975 History of tobacco use Cigarette Smo ker [facility] Start: 05-10-2015 End: 05-24-2024 Cigarettes smoked current (pack per day) - Reported 3 [facility] Start: 07-24-2016 End: 10-14-2024 Alcoholic beverage intake Not Asked [facility] Start: 05-24-2024 End: 05-25-2024 [facility] [employer] [facility] Has the [employer], or water [employer] threatened to shut off services in your home in past 12Mo No [facility] (I/We) worried rachael er (my/our) food would run out before (I/we) got money to buy more. Never true [facility] In the past 12 month s, has lack of transportation kept you from medical appointments or from getting medications? No [facility] Start: 1955 Sex assigned at Not on file [facility] Start: 07-25-2024 End: 10-14-2024 Tobacco smoking status NHIS Ex-smoker [facility] Start: 05-10-1975 History of tobacco use Current smoke r [facility] Start: 05-02-2024 Tobacco smoking stat us IDIS Smokes tobacco daily (finding) [facility] NEGATED: Highlighted rowStart: NINF History of tobacco use Passive smoker [facility] Goals Date Patient Goal Desired Activity /State Personal health goal Functional Status Date Assessment Result Facility 06-06-2024 Are you deaf, or do you have serious difficulty hearing No 06/06/2024 5:52 PM Peng Cobb RN No [facility] 06-06-2024 Are you blind, or do you have serious difficulty seeing, even when wearing glasses No 06/06/2024 5:52 PM Peng Cobb RN No [facility] 06-06-2024 Do you have serious difficulty walking or climbing stairs Yes 06/06/2024 5:52 PM Peng Cobb, ALEXANDRE Yes [facility] 06-06-2024 Do you have difficul ty dressing or bathing No 06/06/2024 5:52 PM Peng Cobb RN No [facility] 06-06-2024 Because of a physica l, mental, or emotional condition, do you have difficulty doing errands alone such as visiting a physician's office or shopping No 06/06/2024 5:52 PM Peng Cobb RN No [facility] Mental Status Date Assessment Result Facility 06-06-2024 Because of a physica l, mental, or emotional condition, do you have serious difficulty concentrating, remembering, or making decisions No 06/06/2024 5:52 PM Peng Cobb RN No [facility] Clinical Notes 05-23-2024 to 12-08-2024 Telephone Encounter - Niki Rasheed LPN - 10/14/2024 1:54 PM EDTTelephone Encounter - Niki Rasheed LPN - 10/14/2024 1:54 PM EDTTelephone Encounter - Niki Rasheed LPN - 10/13/2024 4:17 PM EDT Note Date & Type Note Facility 12-08-2024 Note HNO ID: [id number] Author: ALISON PIZARRO MD Service: Hospital Medicine Author Type: Resident Type: Progress Notes Filed: 12/16/2024 16:10 Note Text: Documentation Query Please clarify sepsis diagnosis: Sepsis Ruled In This document will become part of the patient's medical record. [facility] 12-08-2024 Note HNO ID: [id number] Author: TRUDI GEORGE RN Service: Care Management Author Type: Registered Nurse Type: Care Mgt Progress Note Filed: 12/08/2024 15:41 Note Text: CARE MANAGEMENT DISCHARGE NOTE SERVICE DATE: December 08, 2024 SERVICE TIME: 3:29 PM Admission Date: 12/03/2024 LOS: 5 days Discharge Arrangement Discharge Arrangement: Group Home Facility Was an expedited discharge program used?: No Provider Name: Ana Caregiver Assessment Caregiver is ready, willing and able to meet the patient's needs as recommended by the inter-professional team: Yes Name of Caregiver: Ana Transportation Arrangements Transportation Arrangements: Ambulance Transportation Agency and Phone #:: [facility] ) [phone] / [phone] Date of Trip: 12/08/24 Time of Trip: 1600 Type of Service: BLS Non-emergency Is Patient Medicaid Pending?: No Was transportation financial coverage discussed with family?: Patient Resort Desk Clerk Location: [facility] Destination: [facility] Financial Care Management Responsibility: None Handoff Communication: Handoff to: Other Caregiver Other Caregiver Name/Phone: [facility]/ Bedside RN Spoke with patient at the bedside. Discharge today. Discharge orders complete. Plan is for patient to return to [facility]. Facility notified and is able to accept patient. Insurance authorization obtained. Transportation set for 1600. [facility] and bedside RN notified. Patient states he will notify his family of discharge time and details. SIGNATURE: Trudi George RN PATIENT NAME: Mitul Oakes DATE: December 08, 2024 TIME: 3:29 PM [facility] 12-08-2024 Note HNO ID: [id number] Author: TRUDI GEORGE RN Service: Care Management Author Type: Registered Nurse Type: Care Mgt Progress Note Filed: 12/08/2024 14:09 Note Text: CARE MANAGEMENT PROGRESS NOTE SERVICE DATE: 12/08/2024 SERVICE TIME: 2:00 PM LOS: 5 days IMM Follow Up Copy Given: Yes Copy given to:: Patient Method: In Person SIGNATURE: Trudi George RN PATIENT NAME: Mitul Oakes DATE: December 08, 2024 TIME: 2:09 PM [facility] 12-08-2024 Note HNO ID: [id number] Author: TEDDY CONWAY MD Service: Hospital Medicine Author Type: Resident Type: Progress Notes Filed: 12/10/2024 10:21 Note Text: Attestation signed by Teddy Conway MD at 12/10/2024 10:21 AM [facility] ATTENDING ATTESTATION: I saw and evaluated the patient on rounds on 12/08/2024. Discussed case with the medicine team and agree with resident's findings and plan as documented in the resident's note. Teddy Conway MD [facility] PROGRESS NOTE PATIENT NAME: Mitul Oakes ADMITTED [...] in 2009) -h/o DVT [facility] with a chief complaint of worsening shortness [...] CBC and BMP unremarkable Sputum culture-mixed oral mickey Objective OBJECTIVE BP 125/56 Pulse 65 Temp [...] Affect: Mood normal. LABORATORY: CBC: Recent Labs 12/08/2434512/07/2420612/06/24 0333 12/05/24 0306 12/04/24 0629 12/03/24 1716 WBC 10.93 [...] the last 168 hours. CMP: Recent Labs 12/08/2434612/07/24 02012/06/24 0333 12/05/24 0306 12/04/24 0629 12/03/24 1716 GLUC 153* [...] Value Units Date/Time Respiratory Culture and Stain [[id number]] (Abnormal) Collected: 12/06/241225 Order Status: Completed Specimen: Sputum Updated: 12/07/24 0734 Culture, Respiratory Few Normal respiratory mickey present Gram Stain Moderate Mixed oral mickey Few Polymorphonuclear leukocytes Few Epithelial cells Respiratory Culture and Stain [[id number]] (Abnormal) Collected: 12/06/24 122 Order Status: Completed Specimen: Sputum Updated: 12/07/24 0734 Culture, Respiratory Few Normal respiratory mickey present Gram Stain Moderate Mixed oral mickey Rare Polymorphonuclear leukocytes Few Epithelial cells Expanded Respiratory Pathogen Panel by PCR, Expedited [[id number]] (Abnormal) Collected: 12/03/24 1717 Orde (more content not included)... [facility] 12-07-2024 Note HNO ID: [id number] Author: AUGUSTO LAKE MD Service: Hospital Medicine [...] for left second toe amputation at the [facility]) presented with shortness of breath hypoxia requiring [...] of IV antibiotics recently prescribed at the [facility] for left second toe osteomyelitis as below. Wean off oxygen goal 88 to 92%. Follow up sputum culture. Recent history of diabetic foot infections with history of left second toe OM. Recent history of right hallux amputation without any active signs of infection and previous history of right BKA with peripheral arterial disease. Patient was on ertapenem and vancomycin prescribed at the [facility] for osteomyelitis and he was receiving that via right arm PICC line at [facility] with end date 12/24/2024, continue previous IV antibiotics. PAD s/p right BKA; continue statin and low-dose rivaroxaban. Type 2 diabetes with mild hyperglycemia without any signs of DKA; continue Lantus at current dose and adjust based on fasting reading. Continue correctional scale and patient may need Premeal insulin. Other chronic medical problems are stable Rest as outlined by Disposition: Back to [facility] once respiratory status improves, likely discharge to [facility] tomorrow. Of note, patient does not need [...] in 2009) -h/o DVT Patient presented to [facility] with a chief complaint of worsening [...] mg by mouth (more content not included)... [facility] 12-06-2024 Note HNO ID: [id number] Author: AUGUSTO LAKE MD Service: Hospital Medicine [...] for left second toe amputation at the [facility]) presented with shortness of breath hypoxia requiring [...] of IV antibiotics recently prescribed at the [facility] for left second toe osteomyelitis as below. Wean off oxygen goal 88 to 92%. Follow up sputum culture. Recent history of diabetic foot infections with history of left second toe OM. Recent history of right hallux amputation without any active signs of infection and previous history of right BKA with peripheral arterial disease. Patient was on ertapenem and vancomycin prescribed at the [facility] for osteomyelitis and he was receiving that via right arm PICC line at [facility] with end date 12/24/2024,, we have resumed [...] outlined by Dr. Ortiz. Disposition: Back to [facility] once respiratory status improves with resolution of [...] in 2009) -h/o DVT Patient presented to [facility] with a chief complaint of worsening [...] packs/day: 3.00 Average (more content not included)... [facility] 12-05-2024 Note HNO ID: [id number] Author: TALYA HATCH, ALEXANDRE Service: Care Management Author Type: Registered Nurse [...] plan is for patient to return to [facility]. Patient was on IV abx at SNF through the [facility]. His current auth is good through 12/24 so will not need a new auth if discharged prior to date. [facility]. Patient will need DC transport. SIGNATURE: Uzma Hatch RN PATIENT NAME: Mitul Oakes DATE: December 05, 2024 TIME: 2:12 PM [facility] 12-04-2024 Note HNO ID: [id number] Author: AUG[place]O LAKE MD Service: General Internal [...] for left second toe amputation at the [facility]) presented with shortness of breath hypoxia requiring [...] Lake MD Date: 12/04/2024 Time: 4:27 PM [facility] 12-04-2024 Note HNO ID: [id number] Author: HOWARD DUBOIS lisa Service: Pharmacy Author Type: Pharmacist Type: Plan of Care Filed: 12/04/2024 12:49 Note Text: PHARMACY MEDICATION REVIEW Patient Name: Mitul Oakes : 1955 The following medications were updated within the [facility] medication list: Medications ADDED to [facility] medication list Vitamin C Melatonin APAP Ertapenem Glucagon Medications CHANGED on [facility] medication list Spironolactone dose Bupropion dose Vitamin D3 Oxycodone dose (30mg to 5mg per dose) Insulin glargine dose (25units bid to daily) KCl dose Torsemide dose Carvedilol dose Vancomycin dose Medications REMOVED from [facility] medication list Fish oil pantoprazole Additional comments: Reviewed SNF MAR from [facility] and reviewed fill history through Reconcile Outside tab. Notable medication issues as follows: [facility], but [facility] in [facility] so was able to update based on SNF MAR Notably, patient is on ertapenem and [...] Pharmacist: Howard Dubois RPh Source of history: SNF MAR, [facility] records, and PDMP Medication nonadherence identified: No barriers noted Reconciliation completed: Yes Completed by: [facility] All [facility] medications addressed by LIP Patient interested in Bedside Delivery Services or using CC OP Pharmacy at discharge? No Preferred outpatient pharmacy: [facility] [place] [address] - [address] - [phone] Allergies: Heparin Other: See Comments Comment:HIIT New pt to [facility] on 05/23/24. Pt states allergy to [...] Take 300 mg by mouth every morning. tlbiqyojxt-dnavxujv-iawyzlancj (BREZTRI) 160-9-4.8 mcg/actuation HFA aerosol inhaler Yes [...] On Wednesdays spironolac (more content not included)... [facility] 12-04-2024 Note HNO ID: [id number] Author: ELVA RAMSEY, RN Service: Care Management Author Type: Registered Nurse Type: Care Mgt Initial Assessment Filed: 12/04/2024 12:44 Note Text: CARE MANAGEMENT: ASSESSMENT AND DISCHARGE PLAN SERVICE DATE: December 04, 2024 SERVICE TIME: 12:40 PM PCP: KODAK KING Primary Contact: Extended Emergency Contact Information Primary Emergency Contact: Angelique Oakes Mobile Relation: Daughter Secondary Emergency Contact: Theresa Barr Relation: Mother Admission Status: Inpatient Insurance Provider: [facility] MEDICARE Needs Prior to Discharge: Bed Availability, Accepting Facility, Discharge Transportation, Precertification, Insurance Authorization IMM Follow Up Copy Given: Yes Copy given to:: Patient Method: In Person Discharge Planning requested by: Per Department Practice Needs Prior to Discharge: Bed Availability, Accepting Facility, Discharge Transportation, Precertification, Insurance Authorization IMM Follow Up Copy Given: Yes Copy given to:: Patient Method: In Person Potential Transition Plans Group Home Facility/Intermediate Care Facility Advance Directives Current Advance Directive: None Sketch Maker Attempted to Assist with AD Completion: Yes Action: Education Provided Current Living Arrangements and Support Lives with: Alone Type of Residence: Group Home Facility Care Facility Name: [facility] Support: How do you manage to accomplish the following: Independent: Bathe/Shower, Dress Needs Assistance: Ambulation, Going to the bathroom, Medication Management, Meals/Meal Prep Dependent: Transportation to appointments/community Current Services/Equipment Current Post-Acute Service(s): DME Current DME Type: Wheelchair-manual, Walker Discharge Planning Patient Goal(s): Be able to go home, General wellness [place] of Choice Explained: [place] of Choice Given: Yes Level of Care Discussed: Group Home Facility (plan to return to [facility]) Are you interested in bedside delivery of your medications? Yes Discharge Planning Participant(s): Patient Transport at Discharge: Transportation Arrangements: Ambulance Transportation Agency and Phone #:: [facility] ( [facility] [phone] / [phone] Type of Service: BLS Non-emergency Resort Desk Clerk Location: [facility] Needs Prior to Discharge: Needs Prior to Discharge: Bed Availability, Accepting Facility, Discharge Transportation, Precertification, Insurance Authorization Post-Acute Discharge Plan: Chart reviewed. CM spoke with patient at bedside. Patient from [facility] and plan to return. Needs assistance with ADL's. Medication management and dependent on transportation. DME's- walker and wheelchair. Need PT/OT eval. Needs to be determined. CM to follow. SIGNATURE: Elva Ramsey RN PATIENT NAME: Mitul Oakes DATE: December 04, 2024 TIME: 12:40 PM [facility] 12-03-2024 Note SARS-COV-2 (AGENT OF COVID-19) RNA: Not detected INFLUENZA A RNA: Not detected INFLUENZA B RNA: Not detected RESPIRATORY SYNCYTIAL VIRUS (RSV) RNA: Not detected [facility] Comment on above: Performed By: #### 9 5941-1, 06071-6 #### [facility] CLIA [id number] [address] [place] [address] [facility] 12-03-2024 Respiratory pathogens DNA and RNA [...] Not detected BORDETELLA PARAPERTUSSIS DNA: Not detected [facility] Comment on above: Performed By: #### 9 5941-1, 93891-4 #### [facility] CLIA [id number] [address] [place] [address] 10-14-2024 Telephone encounter Note Faizan Whitehead--Completed PO Bactrim and IV ertapenem [...] disease at the wound center as needed [facility] 10-14-2024 Miscellaneous Notes Per Charley--Completed PO Bactrim and IV ertapenem [...] has an appt Sunday with Charley at [facility]. The Ertapenem and Bactrim were d/c on the October 07 stop date and the picc line is being maintained until seen by Charley. October 13 labs wnl The tubes were taken to [facility] The results were attached to the M drive October 06 labs wnl The tubes were taken to [facility] The results were attached to the M drive Per RS stop abx at [facility] 10-07 and MTN PICC VO given to Chaya at [facility] [phone] SHANAE Whitehead--Please see the attached wound care note on Mitul Oakes. He's currently on Ertapenem and Bactrim with a stop date of October 07. The next wound care appt is October 14. Do you want to extend abx or stop and mtn until seen by you? October 02 labs wnl The tubes were taken to [facility] The results were attached to the [...] labs wnl The tubes were taken to [facility] The results were attached to the M drive Summary: COPAT ACTION-FOR IDC USE ONLY [facility] 09-16-24 cultures reviewed by RS. Per RS: Stop doxy. Start Bactrim DS one tab po bid. Start Ertapenem 1 g iv daily. Both abx for 2 weeks Orders fax[facility] to [facility] ATTN Nyla for abx and labs DX: CELLULITIS OF TOE LEFT FOOT L03.032 TX: ERTAPENEM 1GM IV Q24 TX: BACTRIM DS 1 TAB BID STOP: 14 DAYS LABS: CBC/D ALT CREAT QMON FU: [facility] ECF: [facility] [phone]/FAX [phone] documented in this encounter [facility] 10-14-2024 Note [facility] 10-14-2024 History of Presen t illness Narrative [...] Take 1 tablet by mouth once daily. dmddzbbday-dkwteorc-cuyvxfvaav (BREZTRI) 160-9-4.8 mcg/actuation HFA aerosol inhaler Inhale [...] day. (Patient not taking: Reported on 09/16/2024) [place]-3 Fatty Acids-Vitamin E (FISH OIL) 1,000 mg [...] Patient arrived via: Wheelchair with family from facility([facility]) Home Care Company/Nursing Facility: Lives at [facility] Consent captured for debridement per Dr. Brandon Crowell until December 2024 Special Instructions: Self transfers Anticoagulant Therapy: ASA & Xarelto Living Situation (ie... Apartment, house, GROUP HOME): Rehab in facility Who lives with patient: His mother lives with patient when home Who will be performing wound care: Facility Available Support System: [id number] and patient's daughter In-Home Assist Devices: wheelchair, [...] from vascular (appointment scheduled for 02/02/25) LISA WRAP/SurePress/Tubi-material planner: Foot is warm and pink before and [...] Coordination of care - AVS sent to [facility] via [employer] Emotional support N/A OR set-up N/A Mortar Mixer N/A Incontinence needs N/A DISCHARGED in stable condition to: Wheelchair with transport PLAN/ORDERS: - Return to the [facility] for a follow-up with appellate court clerk Dr. Rubin as soon as possible. - [...] Shira Conner RN/ documented in this encounter [facility] 10-14-2024 Instructions Shira Conner RN - 10/14/2024 12:58 PM EDT WOUND CARE INSTRUCTIONS- Mitul Oakes Wound Location: Left 2nd toe plantar [facility]: Patient's dressing to left 2nd toe MUST [...] clean 4x4 gauze. Left 2nd toe - [place] with Betadine and allow to dry - Cover with a 2x2 Allevyn. - Change dressing DAILY and as needed to maintain a clean, dry, & intact dressing. Area of concern: Left anterior lower leg: - [place] scabbed areas with Betadine and allow to [...] patients. Report any of the following changes [phone] or go to the Emergency Department: Fever [...] emergency department. PLAN/ORDERS: - Return to the [facility] for a follow-up with appellate court clerk Dr. Rubin as soon as possible. - [...] wound dressing every day Dr. Jeanne Whitehead MD/hyacinth/lt documented in this encounter [facility] 10-14-2024 Note [facility] 10-13-2024 Telephone encounter Note Mitul has an appt Sunday with Charley at [facility]. The Ertapenem and Bactrim were d/c on the October 07 stop date and the picc line is being maintained until seen by Charley. [facility] 10-13-2024 Telephone encounter Note October 13 labs wnl The tubes were taken to [facility] The results were attached to the M drive [facility] 10-08-2024 Telephone encounter Note October 06 labs wnl The tubes were taken to [facility] The results were attached to the M drive [facility] 10-03-2024 Telephone encounter Note Per RS stop abx at E[facility] -22 and MTN PICC VO given to Chaya at [facility] [phone] [facility] 2024 Telephone encounter Note SHANAE Whitehead--Please see the attached wound care note on Mitul Oakes. He's currently on Ertapenem and Bactrim with a stop date of October 07. The next wound care appt is October 14. Do you want to extend abx or stop and mtn until seen by you? [facility] 2024 Telephone encounter Note October 02 labs wnl The tubes were taken to [facility] The results were attached to the M drive [facility] 10-01-2024 Telephone encounter Note Nyla called back to let me know the labs were never done as ordered on Sunday. She will put in the order to have them drawn in the morning. [facility] 10-01-2024 Telephone encounter Note I called the ECF and spoke with the nurse, Nyla. She can't find the Sunday labs so she is going to call the lab. She will either fax them over or call me back. [facility] 09-25-2024 Telephone encounter Note September 23 labs wnl The tubes were taken to [facility] The results were attached to the M drive [facility] 09-24-2024 Telephone encounter Note Summary: COPAT ACTION-FOR IDC USE ONLY [facility] 09-16-24 cultures reviewed by RS. Per RS: Stop doxy. Start Bactrim DS one tab po bid. Start Ertapenem 1 g iv daily. Both abx for 2 weeks Orders faxed to [facility] ATTN Nyla for abx and labs DX: CELLULITIS OF TOE LEFT FOOT L03.032 TX: ERTAPENEM 1GM IV Q24 TX: BACTRIM DS 1 TAB BID STOP: 14 DAYS LABS: CBC/D ALT CREAT QMON FU: [facility] ECF: [facility] [phone]/FAX [phone] [facility] 09-23-2024 Telephone encounter Note Summary: 09-16-24 culture results YAN sent RS culture results from [facility] for review. PER RS: Continue oral doxycycline. Start topical triple antibiotic ointment twice a day to the wound. The patient will need IV antibiotics if there is any worsening of the wound as there are no oral antibiotics available for the infection detected. I called [facility] in [place] [phone] and gave information to Yolande. Nursing will call back if they have any questions. Milena from [facility] called back to let us know the HANDYMAN changed his abx. Doxy stopped and started Keflex 250mg po 4 times daily till 09-26-24. RS notified by EMELIA PER RS: Neither of his bacteria are sensitive to Keflex. I called Milena at [facility]- she reports that patient did not have any problems with the Doxy and she will put him back on the Doxy x7 days and inform the HANDYMAN at the [facility]. [facility] 09-23-2024 Miscellaneous Notes Summary: 09-16-24 culture results YAN sent RS culture results from [facility] for review. PER RS: Continue oral doxycycline. Start topical triple antibiotic ointment twice a day to the wound. The patient will need IV antibiotics if there is any worsening of the wound as there are no oral antibiotics available for the infection detected. I called [facility] in [place] [phone] and gave information to Yolande. Nursing will call back if they have any questions. Milena from [facility] called back to let us know the HANDYMAN changed his abx. Doxy stopped and started Keflex 250mg po 4 times daily till 09-26-24. RS notified by JG PER RS: Neither of his bacteria are sensitive to Keflex. I called Milena at [facility]- she reports that patient did not have any problems with the Doxy and she will put him back on the Doxy x7 days and inform the HANDYMAN at the [facility]. documented in this encounter [facility] 09-16-2024 Note [facility] 09-16-2024 History of Presen t illness Narrative [...] Take 1 tablet by mouth once daily. hrjzhxndvj-dlnqfpiw-skkftoerge (BREZTRI) 160-9-4.8 mcg/actuation HFA aerosol inhaler Inhale [...] Take 1 tablet by mouth every morning. [place]-3 Fatty Acids-Vitamin E (FISH OIL) 1,000 mg [...] Patient arrived via: Wheelchair with family from facility([facility]) Home Care Company/Nursing Facility: Lives at [facility] Consent captured for debridement per Dr. Brandon Crowell until December 2024 Special Instructions: Self transfers Anticoagulant Therapy: ASA & Xarelto Living Situation (ie... 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 Provider seeing patient: Brandon Rubin DPAntoinette & Jeanne Whitehead MD Wounds 1, 2, [...] 28.0 Length: 47.0 cm WOUND PHOTOGRAPHY: Yes; Lasy date taken 09/16/2024 DEBRIDEMENT PROCEDURE BY PROVIDER: [...] COMPRESSION: Awaiting PVR results from vascular LISA WRAP/SurePress/Tubi-material planner: Foot is warm and pink before and [...] Coordination of care - AVS sent to [facility] via [facility] Emotional support N/A OR set-up N/A Mortar Mixer N/A Incontinence needs N/A DISCHARGED in stable condition to: Wheelchair with daughter PLAN/ORDERS: - Return to the [facility] for a follow-up with appellate court clerk Dr. Rubin as soon as possible. - [...] - Please follow-up with your PCP or microsoft application developer about your elevated blood pressure readings. - [...] [facility] documented in this encounter [facility] 09-16-2024 Instructions Sharri Arciniega LPN - 09/16/2024 2:00 PM EDT WOUND CARE INSTRUCTIONS- Mitul Oakes Wound Location: Left 2nd toe plantar [facility]: - Wash your hands with soap and [...] infection Report any of the following changes [phone] or go to the Emergency Department: Fever [...] emergency department. PLAN/ORDERS: - Return to the [facility] for a follow-up with appellate court clerk Dr. Rubin as soon as possible. - [...] - Please follow-up with your PCP or microsoft application developer about your elevated blood pressure readings. - If you have any questions or concerns that cannot be answered with the following information, please follow the instructions listed above on how to contact the wound center. Rx: Doxycycline sent to pharmacy Dr. Jeanne Whitehead MD/aa/fm documented in this encounter [facility] 09-16-2024 Note [facility] 07-25-2024 History of Presen t illness Narrative Images from the original note were not included. [facility] DEPARTMENT OF VASCULAR SURGERY OUTPATIENT VISIT DATE July 25, 2024 OUTPATIENT VISIT TYPE ESTABLISHED SERVICE DATE: 07/25/2024 SERVICE TIME: 11:32 AM PRIMARY CARE PHYSICIAN: [facility] HISTORY OF PRESENT ILLNESS: Mr. Oakes is a 68 year old male who presents today for a vascular surgery follow-up visit for peripheral arterial disease. He has a history of angiogram with Dr. Lucas in May for left toe wound He had balloon angioplasty of distal left superficial femoral artery with 5x60mm mustang balloon and 6x80mm DCB (Inpact) at [facility] for SFA occlusion noted on CTA. 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 He continues to follow with [facility]. 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 No past medical history on file. PAST [...] Take 1 tablet by mouth once daily. obmwjyvuyf-jgfimvzq-bzdkvpmrli (BREZTRI) 160-9-4.8 mcg/actuation HFA aerosol inhaler Inhale [...] Take 1 tablet by mouth every morning. [place]-3 Fatty Acids-Vitamin E (FISH OIL) 1,000 mg cap Take 1 capsule by mouth. carvedilol (COREG) 25 mg tablet Take 25 mg by mouth twice daily with meals. vitamin D3-vitamin K2, MK4, 1,000-100 unit-mcg tab Take by mouth. ALLERGIES: ALLERGIES Allergen Reactions Heparin Other: See Comments HIIT New pt to [facility] on 05/23/24. Pt states allergy to [...] mild disease at rest (im[facility]) Arterial Duplex-LEFT SIDE External iliac artery, [...] TIME: 11:32 AM documented in this encounter [facility] 07-25-2024 Note HNO ID: [id number] Author: DARI ESPARZA DO Service: ? Author Type: Physician Type: Progress Notes Filed: 07/25/2024 12:15 Note Text: [facility] DEPARTMENT OF VASCULAR SURGERY OUTPATIENT VISIT DATE July 25, 2024 OUTPATIENT VISIT TYPE ESTABLISHED SERVICE DATE: 07/25/2024 SERVICE TIME: 11:32 AM PRIMARY CARE PHYSICIAN: [facility] HISTORY OF PRESENT ILLNESS: Mr. Oakes is a 68 year old male who presents today for a vascular surgery follow-up visit for peripheral arterial disease. He has a history of angiogram with Dr. Lucas in May for left toe wound He had balloon angioplasty of distal left superficial femoral artery with 5x60mm mustang balloon and 6x80mm DCB (Inpact) at [facility] for SFA occlusion noted on CTA. 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 He continues to follow with [facility]. 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 No past medical history on file. PAST [...] Take 1 tablet by mouth once daily. icavyfwkin-bjniguua-ekwonezzrd (BREZTRI) 160-9-4.8 mcg/actuation HFA aerosol inhaler Inhale [...] Take 1 tablet by mouth every morning. [place]-3 Fatty Acids-Vitamin E (FISH OIL) 1,000 mg cap Take 1 capsule by mouth. carvedilol (COREG) 25 mg tablet Take 25 mg by mouth twice daily with meals. vitamin D3-vitamin K2, MK4, 1,000-100 unit-mcg tab Take by mouth. ALLERGIES: ALLERGIES Allergen Reactions Heparin Other: See Comments HIIT New pt to [facility] on 05/23/24. Pt states allergy to [...] mild disease at rest (im[facility]) Arterial Duplex-LEFT SIDE External iliac artery, [...] current medications C (more content not included)... [facility] 07-15-2024 Note [facility] 07-15-2024 History of Presen t illness Narrative [...] Take 1 tablet by mouth once daily. wtriinyype-urrtacun-kyezirqtxe (BREZTRI) 160-9-4.8 mcg/actuation HFA aerosol inhaler Inhale [...] Take 1 tablet by mouth every morning. [place]-3 Fatty Acids-Vitamin E (FISH OIL) 1,000 mg [...] Patient arrived via: Wheelchair with family from facility([facility]) Home Care Company/Nursing Facility: Lives at [facility] captured for debridement per Dr. Brandon Crowell until December 2024 Special Instructions: Self transfers Anticoagulant Therapy: ASA & Xarelto Living Situation (ie... 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 Provider seeing patient: Brandon TODDM & Jeanne Whitehead MD Wounds 1, 3,4 [...] 4x4 gauze, ABD pad, Kerlix, & tape Tubi-material planner E WOUND # 5 - LOCATION: Left [...] bed: N/A Covered and secured with: 4x4 [place] SAP AOC: Right Stump Lateral-Distal end of stump (07/15/24) COMPRESSION: Awaiting PVR results from vascular LISA WRAP/SurePress/Tubi-material planner: Foot is warm and pink before and [...] Coordination of care - AVS sent to [facility] via [employer] Emotional support N/A OR set-up N/A Mortar Mixer N/A Incontinence needs N/A DISCHARGED in stable condition to: Wheelchair with daughter PLAN/ORDERS: - Return to the [facility] for a follow-up with appellate court clerk Dr. Rubin on July 30 at 10:30 [...] - Please follow-up with your PCP or microsoft application developer about your elevated blood pressure readings. - [...] the [facility] documented in this encounter [facility] 07-15-2024 Note [facility] 07-15-2024 History of Presen t illness Narrative [...] swab: Staph Epi and Staph haemolyticus 05/24/24 PVR/JACKELNY: left ankle AB 0.88 Bi phasic and [...] other day Patient was revascularized 06/02/24 at [facility]. Follow up with vascular as scheduled [...] Patient arrived via: Wheelchair with family from facility([facility]) Home Care Company/Nursing Facility: Lives at [facility] Consent captured for debridement per Dr. Brandon Rubin and catarino until December 2024 Special Instructions: Self transfers Anticoagulant Therapy: ASA & Xarelto Living Situation (ie... Apartment, house, GROUP HOME): Rehab in facility Who lives with patient: His mother lives with patient when home Who will be performing wound care: Facility Available Support System: [id number]-y-gue and patient's daughter In-Home Assist Devices: wheelchair, [...] bed: N/A Covered and secured with: 4x4 [place] SAP COMPRESSION: Awaiting PVR results from vascular LISA WRAP/SurePress/Tubi-material planner: Foot is warm and pink before and [...] Coordination of care - AVS sent to [facility] via [employer] Emotional support N/A OR set-up N/A Mortar Mixer N/A Incontinence needs N/A DISCHARGED in stable condition to: Wheelchair with daughter PLAN/ORDERS: - Return to the [facility] for a follow-up with appellate court clerk Dr. Rubin on July 30 at 10:30 [...] - Please follow-up with your PCP or microsoft application developer about your elevated blood pressure readings. - [...] and The intended procedure Time Out Communication: 8215 Intended patient and procedure match the source documents. Consent documented and matches the intended procedure. No relevant labs, photos, and/or imaging studies were applicable for review. Sign Out: [id number] SIGN OUT (optional for EMERGENT procedures): No [...] Ruth Atwood RN/SP documented in this encounter [facility] 07-15-2024 Instructions Kirsten Rahman RN - 07/15/2024 2:15 PM EST WOUND CARE INSTRUCTIONS- Mitul Oakes Wound [facility] Lower [facility] [place] - Wash your hands with soap and water before and after wound care. - Gather all supplies needed. - Moisten a 4x4 gauze with a few drops of Vashe and allow to soak on the wound bed for 5-10 minutes. Remove and pat dry with another clean 4x4 gauze. - [place] between all the toes with Betadine and [...] as much as possible Apply size E Tubi-material planner ON in the AM / OFF in [...] every day - Cover with a 4x4 [place] SAP or equivalent silicone bordered bandage. - Change dressing Every Other Day and as needed to maintain a clean, dry, & intact dressing. - Wear loss prevention research engineer while out of bed every day To [...] infection Report any of the following changes [phone] or go to the Emergency Department: Fever [...] emergency department. PLAN/ORDERS: - Return to the [facility] for a follow-up with appellate court clerk Dr. Rubin on July 30 at 10:30 [...] - Please follow-up with your PCP or microsoft application developer about your elevated blood pressure readings. - If you have any questions or concerns that cannot be answered with the following information, please follow the instructions listed above on how to contact the wound center. Rx: Doxycycline x [address] Jeanne Whitehead MD/mitzi/clementina documented in this encounter [facility] 07-15-2024 Note [facility] 07-11-2024 Telephone encounter Note VERONICA Vázquez RN Nurse Contact Center Representative Carina Barrios reports the patients foot is red and swollen and the patient voiced concern. The patient had been seen in the wound center 07/10/24. Encouraged to call Dr. Rubin at his office. Telephone number shared. [facility] 07-11-2024 Miscellaneous Notes VERONICA Vázquez RN Nurse Contact Center Representative Carina Barrios reports the patients foot is red and swollen and the patient voiced concern. The patient had been seen in the wound center 07/10/24. Encouraged to call Dr. Rubin at his office. Telephone number shared. 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 - Gather all supplies needed. - Moisten a 4x4 gauze with a few drops of Vashe and allow to soak on the wound bed for 5-10 minutes. Remove and pat dry with another clean 4x4 gauze. - [place] between all the toes with Betadine and [...] Medial Posterior: - Cover with a 4x4 [place] SAP or equivalent silicone bordered bandage. - [...] infection Report any of the following changes [phone] or go to the Emergency Department: Fever [...] emergency department. PLAN/ORDERS - Return to the [facility] for a follow-up with appellate court clerk Dr. Rubin on July 30 at 10:30 [...] - Please follow-up with your PCP or microsoft application developer about your elevated blood pressure readings. - If you have any questions or concerns that cannot be answered with the following information, please follow the instructions listed above on how to contact the wound center. Brandon Rubin DPM/RITO/EILEEN documented in this encounter [facility] 07-10-2024 Note [facility] 07-02-2024 Note [facility] 06-26-2024 Telephone encounter Note [place] 9 creat wnl at 0.97 The results were attached to the M drive Orders given to the nurseCatie, to remove the picc line and continue the Fluconazole until Jul 09. [facility] 06-26-2024 Miscellaneous Notes Jun 26 creat wnl at 0.97 The results were attached to the M drive Orders given to the nurseCatie, to remove the picc line and continue the Fluconazole until Jul 09. Jun 25 creat wnl at 1.12 The results were attached to the M drive To be repeated again and Sun Per RS [facility] note: Discontinue IV vancomycin and [...] 07/09/2024 VO given to Catie at [facility] to stop IV abx, encourage IV fluid hydration and repeat creat daily x3 days. They will fax results (if results worsening Catie aware that patient needs to go to ED) 1.6.25 labs reviewed and attached to M drive. Creat elevated 1.91 (0.94) Vanc T 11.6. Patient has appointment scheduled with RS tomorrow at [facility] Jun 19 labs reviewed, no changes Creat [...] the 2s VO given to Geno at [facility] EM RS: 06-16 ABN LABS: WBC 11.4 (10.37) CREAT 1.32 (1.03) VANC T 20.1 (14.8) CURRENT TX PLAN: VANC 750MG IV Q12 ERTAPENEM 1GM IV Q24 FLUCONAZOLE 400MG PO DAILY. Please advise Summary: Med change new stop date VO given to Geno at [facility] VANC 750MG IV Q12 X14 DAYS STOP CEFTRIAXONE START ERTAPENEM 1G IV Q24 X14 DAYS CONTINUE FLUCONAZOLE 400MG PO DAILY TILL 07-09-24 PER RS: OK to extend antibiotics for two weeks. Also change Ceftriaxone to Ertapenem 1g iv daily. Call placed to [facility] and they asked me to call back in 20 min (nurse not available) EM RS: Stop date today. ECF called [...] labs pending. Please advise. Geno nurse with [facility] called requesting a vanc dosage increase to 1gm wound care nurse in house reporting the incision is warm to touch and red sutures look good. Stop is today I requested labs be faxed over they will order them stat. Dionna Gallegos [phone] confirmed copat orders and labs with Catie at [facility]. 06-06-24 labs WNL reviewed in [facility] Images from the original note were not included. Addendum Information Date & Time User 06/04/2024 11:20 AM JEANNE WHITEHEAD 06/06/2024 7:15 PM JEANNE WHITEHEAD Patient Info Patient Name Sex Mitul Oakes ([id number]) Male 1955 Encounter Notes Progress Notes by Jeanne Whitehead MD, encounter date 05/30/2024: Progress Notes [facility]patient Parenteral Antimicrobial Therapy (OPAT) Start Form Patient Info Patient MRN Patient Name Address Date of [id number] Mitul Oakes [address] [facility] [id number] 1955 Start Date 06/06/2024 Physician Group [facility] [...] Monitoring Treatment Course Jeanne Whitehead MD Address [address] [place] [address] Prescribing Provider's signature - electronically signed by Jeanne Whitehead MD on 06/06/24 at 7:14 PM Images from the original note were not included. REVISED COPAT Encounter Information Date & Time Provider Department Encounter # Center 05/30/2024 8:32 PM Jeanne Whitehead [place] PROVID[facility] ADULT [id number] Addendum Information Date & Time User 06/04/2024 11:20 AM JEANNE WHITEHEAD Patient Info Patient Name Sex Mitul Oakes ([id number]) Male 1955 Encounter Notes Progress Notes by Jeanne Whitehead MD, encounter date 05/30/2024: Progress Notes [facility] Parenteral Antimicrobial Therapy (OPAT) Start Form Patient Info Patient MRN Patient Name Address Date of [id number] Mitul Oakes [address] [place] [id number] 1955 Start Date 06/04/2024 Physician Group [facility] [...] Monitoring Treatment Course Jeanne Whitehead MD Address [address] [place] [address], [place] [address] Prescribing Provider's signature - electronically signed by Jeanne Whitehead MD on 06/04/24 at 11:20 AM Summary: COPAT MANAGEMENT FOR IDC USE ONLY Images from the original note were not included. Date & Time Provider Department Encounter # Center 05/30/2024 8:32 PM Jeanne Whitehead [place] PROVID[facility] ADULT [id number] Patient Info Patient Name Sex Mitul Oakes ([id number]) Male 1955 Encounter Notes Progress Notes by Jeanne Whitehead MD, encounter date 05/30/2024: Progress Notes [facility] Parenteral Antimicrobial Therapy (OPAT) Start Form Patient Info Patient MRN Patient Name Address Date of [id number] Mitul Oakes [address] [place] [id number] 1955 Start Date 05/30/2024 Physician Group [facility] [...] Monitoring Treatment Course Jeanne Whitehead MD Address [address] [place] [address], [place] [address] Prescribing Provider's signature - electronically signed by Jeanne Whitehead MD on 05/30/24 at 8:34 PM documented in this encounter [facility] 06-25-2024 Telephone encounter Note Jun 25 creat wnl at 1.12 The results were attached to the M drive To be repeated again and Sun [facility] 06-24-2024 Telephone encounter Note Per [facility] note: Discontinue IV vancomycin and ertapenem today [...] 07/09/2024 VO given to Catie at [facility] to stop IV abx, encourage IV fluid hydration and repeat creat daily x3 days. They will fax results (if results worsening Catie aware that patient needs to go to ED) [facility] 06-24-2024 Note [facility] 06-24-2024 History of Presen t illness Narrative [...] Anxiety Depression COPD (chronic obstructive pulmonary disease) ([facility]) History of DVT (deep vein thrombosis) Type [...] Take 1 tablet by mouth once daily. plhuejrasp-eyziersr-zzsnmjbcai (BREZTRI) 160-9-4.8 mcg/actuation HFA aerosol inhaler Inhale [...] Take 1 tablet by mouth every morning. [place]-3 Fatty Acids-Vitamin E (FISH OIL) 1,000 mg [...] Patient arrived via: Wheelchair with family from facility([facility]) Home Care Company/Nursing Facility: Lives at [facility] Consent captured for debridement per Dr. Brandon Crowell until December 2024 Special Instructions (for example, patient stands at the bedside for exam/dressing): able to transfer to bed Anticoagulant Therapy: ASA, Xarelto Living Situation (ie... Apartment, house, [place]): Rehab in facility Who lives with patient: his mother lives with patient when home Who will be performing wound care: facility Available Support System: [id number] and patient's daughter In-Home Assist Devices: wheelchair, [...] Calcium alginate Covered and secured with: 4x4 [place] SAP WOUND # 2 - LOCATION: Left [...] bed: Iodoflex Covered and secured with: 4x4 [place] SAP AOC: Right Lateral BKA: Cleansed with: Vashe Applied to carmita-wound skin: Skin prep Applied to wound bed: Allevyn pad Covered and secured with: 6x7 [place] SAP AOC Left Lateral Ankle(Superior) (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 It was demonstrated to the patient how to check for adequate circulation. Patient voices understanding. If circulation becomes compromised by a change in color, increased pain, numbness or tingling to the area, the patient knows to remove the compression and elevate the leg above the heart. DME: [facility] at [facility] SPECIAL NEEDS: Coordination of care [facility] inpatient Emotional support N/A OR set-up N/A Mortar Mixer N/A Incontinence needs N/A DISCHARGED in stable condition to: wheelchair with daughter PLAN/ORDERS: - Return to the [facility] for a follow-up with appellate court clerk Dr. Rubin on July 02 at 9:00 am. - Follow-up in the wound center to see infectious disease specialist Dr. Whitehead in 3 weeks. - You have an appointment to see vascular surgeon Dr. Grider on June 26 at 10:30 am. You must contact the vascular office in the [facility] to reschedule if needed. Please call and wait to be transferred to the loader operator/ground leader. Request to speak with the vascular office and make an appointment with them once they answer. Phone number: [phone] - Infectious disease specialist Dr. Whitehead will [...] - Please follow-up with your PCP or microsoft application developer about your elevated blood pressure readings. - [...] to ANY of questions 5-9, [facility] Ruth Atwood RN/ documented in this encounter [facility] 06-24-2024 Instructions Ruth Atwood RN - 06/24/2024 2:10 PM EST WOUND CARE INSTRUCTIONS- Mitul Oakes Wound Location: Left Lower Extremity Facility: [facility] Wound Vac: Skin prep to carmita-wound Duoderm [...] infection Report any of the following changes [phone] or go to the Emergency Department: Fever [...] emergency department. PLAN/ORDERS - Return to the [facility] for a follow-up with appellate court clerk Dr. Rubin on July 02 at 9:00 am. - Follow-up in the wound center to see infectious disease specialist Dr. Whitehead in 3 weeks. - You have an appointment to see vascular surgeon Dr. Grider on June 26 at 10:30 am. You must contact the vascular office in the [facility] to reschedule if needed. Please call and wait to be transferred to the loader operator/ground leader. Request to speak with the vascular office and make an appointment with them once they answer. Phone number: [phone] - Infectious disease specialist Dr. Whitehead will [...] - Please follow-up with your PCP or microsoft application developer about your elevated blood pressure readings. - If you have any questions or concerns that cannot be answered with the following information, please follow the instructions listed above on how to contact the wound center. Jeanne Whitehead MD/RITO/ documented in this encounter [facility] 06-24-2024 Note [facility] 06-23-2024 Telephone encounter Note 06.23.24 labs reviewed and attached to M drive. Creat elevated 1.91 (0.94) Vanc T 11.6. Patient has appointment scheduled with RS tomorrow at [facility] 06-20-2024 Note [facility] 06-19-2024 Note [facility] 06-19-2024 Telephone encounter Note [place] 2 labs reviewed, no changes Creat wnl at 0.90 Vanc trough wnl at 12.6 The tubes were taken to [facility] The results were attached to the M drive [facility] 06-17-2024 Telephone encounter Note PER RS: Encourage hydration. Decrease vanco to 500 mg iv q12 after holding one dose. Repeat labs today and . Go to ED if creatinine jumps up into the 2s VO given to Geno at [facility] 06-16-2024 Telephone encounter Note EM RS: 06-16 ABN LABS: WBC 11.4 (10.37) CREAT 1.32 (1.03) VANC T 20.1 (14.8) CURRENT TX PLAN: VANC 750MG IV Q12 ERTAPENEM 1GM IV Q24 FLUCONAZOLE 400MG PO DAILY. Please advise [facility] 06-13-2024 Telephone encounter Note Summary: Med change new stop date VO given to Geno at [facility] VANC 750MG IV Q12 X14 DAYS STOP CEFTRIAXONE START ERTAPENEM 1G IV Q24 X14 DAYS CONTINUE FLUCONAZOLE 400MG PO DAILY TILL 07-09-[address] [facility] 06-13-2024 Telephone encounter Note PER RS: OK to extend antibiotics for two weeks. Also change Ceftriaxone to Ertapenem 1g iv daily. Call placed to [facility] and they asked me to call back in 20 min (nurse not available) [facility] 06-13-2024 Telephone encounter Note EM RS: Stop date today. [facility] called reporting incision warm to touch and red. Sutures look good. They are requesting abx extension and increase in vanc dosage. 06-06-24 labs: WBC 10.37 (8.29) CREAT 1.03 (1.23) VANC T 14.8 (16.9). CURRENT TREATMENT PLAN: VANC 750MG IV Q12 CEFTRIAXONE 2GM IV Q24 till 06-13 AND FLUCONAZOLE 400MG PO Q24 till 07-09-24. This week's labs pending. Please advise. [facility] 06-13-2024 Telephone encounter Note Geno nurse with [facility] adbi Barrios called requesting a vanc dosage increase to 1gm wound care nurse in house reporting the incision is warm to touch and red sutures look good. Stop is today I requested labs be faxed over they will order them stat. Dionna Gallegos [facility] 06-09-2024 Telephone encounter Note [facility] [phone] confirmed copat orders and labs with Catie at [facility]. 06-06-24 labs WNL reviewed in [facility] 06-09-2024 Telephone encounter Note Images from the original note were not included. Addendum Information Date & Time User 06/04/2024 11:20 AM JEANNE WHITEHEAD 06/06/2024 7:15 PM JEANNE WHITEHEAD Patient Info Patient Name Sex Mitul Oakes ([id number]) Male 1955 Encounter Notes Progress Notes by Jeanne Whitehead MD, encounter date 05/30/2024: Progress Notes [facility]patient Parenteral Antimicrobial Therapy (OPAT) Start Form Patient Info Patient MRN Patient Name Address Date of [id number] [place] [id number] 1955 Start Date 06/06/2024 Physician Group [facility] [...] Monitoring Treatment Course Jeanne Whitehead MD Address [address] [place] [address] Prescribing Provider's signature - electronically signed by Jeanne Whitehead MD on 06/06/24 at 7:14 PM [facility] 06-06-2024 Note HNO ID: [id number] Author: PENG LAZO RN Service: Nursing Author Type: Registered Nurse Type: Nursing Progress Note Filed: 06/06/2024 18:11 Note Text: 1800: Transport scheduled for 1900. Report given to nurse at [facility]. [facility] 06-06-2024 Note [facility] 06-05-2024 Note [facility] 06-04-2024 Telephone encounter Note Images from the original note were not included. REVISED COPAT Encounter Information Date & Time Provider Department Encounter # Center 05/30/2024 8:32 PM Jeanne Whitehead [place] PROVIDER ADULT [id number] Addendum Information Date & Time User 06/04/2024 11:20 AM JEANNE WHITEHEAD Patient Info Patient Name Sex Mitul Oakes ([id number]) Male 1955 Encounter Notes Progress Notes by Jeanne Whitehead MD, encounter date 05/30/2024: Progress Notes [facility] Parenteral Antimicrobial Therapy (OPAT) Start Form Patient Info Patient MRN Patient Name Address Date of [id number] Mitul Oakes [address] [place] [id number] 1955 Start Date 06/04/2024 Physician Group [facility] [...] Monitoring Treatment Course Jeanne Whitehead MD Address [address] [place] [address] Prescribing Provider's signature - electronically signed by Jeanne Whitehead MD on 06/04/24 at 11:[address] [facility] 06-04-2024 Note [facility] 06-04-2024 Note [facility] 06-03-2024 Note HNO ID: [id number] Author: VIOLETA GARRETT RN Service: Care Management [...] the process utilized to ensure compliance with [facility] policy regarding Inpatient Admission and Observation [...] physician's order as documented evidence of concurrence. [facility] 06-03-2024 Note [facility] 06-03-2024 Note [facility] 06-02-2024 Note HNO ID: [id number] Author: MILLIE ANDERSON DO Service: General Surgery [...] sent for pt to return back to [facility] -Continue aspirin 81mg daily and resume xarelto 2.5mg BID tomorrow on 06/03/24 Millie Anderson DO June 02, 2024 11:03 PM [facility] 06-02-2024 Note HNO ID: [id number] Author: KARLY CORRIGAN RN Service: Care Management Author Type: Registered Nurse Type: Care Mgt Progress Note Filed: 06/02/2024 17:44 Note Text: CARE MANAGEMENT PROGRESS NOTE SERVICE DATE: 06/02/2024 SERVICE TIME: 5:39 PM LOS: 0 days CM was requested to assist with arranging transport for patient to return to [facility]. Patient was sent here on [facility] from [place] for angiogram. CM discussed with DIRECTOR HRIS. Plan is for surgery to reassess patient at 11pm this evening. If the assessment is satisfactory, then patient will be permitted to return to [facility]. Since the discharge time is not concrete, CM is unable to schedule the transport. HOWEVER, the transport form and facesheet have been completed and sent to PACU. When patient is ready for transport back to [facility], DIRECTOR HRIS to call [phone] to request cot transport and call report to [facility]. CM called and confirmed with [facility] that they have transporters available 08/01. SIGNATURE: Karly Corrigan RN PATIENT NAME: Mitul Oakes DATE: June 02, 2024 TIME: 5:39 PM [facility] 06-02-2024 Note HNO ID: [id number] Author: MARSHA LUCAS DO Service: Vascular Surgery Author Type: Physician Type: Plan of Care Filed: 06/02/2024 17:37 Note Text: Vascular Surgery Plan of Care Patient s/p right groin access and left leg angiogram with balloon angioplasty of distal SFA. Patient has strong left DP/PT signals post procedure. Right groin access site without hematoma. Bedrest for 6 hours Ok to transport patient back to [place] at 10pm if no groin hematoma Continue aspirin 81mg daily and resume xarelto 2.5mg BID tomorrow on 06/03/24 Marsha Lucas DO [facility] 06-02-2024 Note [facility] 06-02-2024 Note HNO ID: [id number] Author: KIRSTEN NEWBERRY, ALEXANDRE Service: ? Author Type: Registered Nurse Type: Nursing Progress Note Filed: 06/02/2024 18:03 Note Text: 1150: Pt picked up for transport by [facility] for scheduled angiogram at [facility]. [facility] 06-02-2024 Note [facility] 06-02-2024 Telephone encounter Note Summary: COPAT MANAGEMENT FOR IDC USE ONLY Images from the original note were not included. Date & Time Provider Department Encounter # Center 05/30/2024 8:32 PM Jeanne Whitehead [place] PROVIDER ADULT [id number] Patient Info Patient Name Sex Mitul Duffy ([id number]) Male 1955 Encounter Notes Progress Notes by Jeanne Whitehead MD, encounter date 05/30/2024: Progress Notes [facility] Parenteral Antimicrobial Therapy (OPAT) Start Form Patient Info Patient MRN Patient Name Address Date of [id number] Mitul Oakes [address] [facility] [place] [address] 1955 Start Date 05/30/2024 Physician Group [facility] [...] Monitoring Treatment Course Jeanne Whitehead MD Address [address] [place] [address] Prescribing Provider's signature - electronically signed by Jeanne Whitehead MD on 05/30/24 at 8:34 PM [facility] 06-01-2024 Note [facility] 06-01-2024 Note [facility] 05-31-2024 Note [facility] 05-31-2024 Note [facility] 05-31-2024 Note HNO ID: [id number] Author: NOTE, INTERFACE, ? Service: ? Author Type: ? Type: Progress Notes Filed: 06/05/2024 16:01 Note Text: Epic Scheduled Downtime: 05/31/2024 1:00:00 AM to 05/31/2024 2:52:17 AM [facility] 05-30-2024 Note [facility] 05-30-2024 History of Presen t illness Narrative Images from the original note were not included. [facility] Parenteral Antimicrobial Therapy (OPAT) Start Form Patient Info Patient MRN Patient Name Address Date of [id number] Mitul Oakes [facility] [address] 1955 Start Date 05/30/2024 Physician Group [facility] [...] Monitoring Treatment Course Jeanne Whitehead MD Address [address] [place] [address] Prescribing Provider's signature - electronically signed by Jeanne Whitehead MD on 05/30/24 at 8:34 PM documented in this encounter [facility] 05-30-2024 Note [facility] 05-29-2024 Note [facility] 05-29-2024 Note [facility] 05-28-2024 Note [facility] 05-28-2024 Note [facility] 05-27-2024 Note [facility] 05-26-2024 Note [facility] 05-25-2024 Note [facility] 05-25-2024 Note [facility] 05-25-2024 Note [facility] 05-24-2024 Note [facility] 05-23-2024 Note SARS-COV-2 (AGENT OF COVID-19) RNA: Not detected INFLUENZA A RNA: Not detected INFLUENZA B RNA: Not detected RESPIRATORY SYNCYTIAL VIRUS (RSV) RNA: Not detected [facility] Comment on above: Performed By: #### 9 [id number] ####[facility]ORY[facility]IA [id number] [place] [address] [facility] Discharge summary Note Date/Time November 19, 2022 6:49am [facility] Medical Records Department [address] [place] [address] Emergency Department Summary 11/19/22 MR#: [id number] Acct: [id number] Name: MITUL OAKES Rep #:[id number] : 1955 67 From: Christopher Fontaine DO PCP: [place] Status:REG ER Location: ED HPI History of Present Illness Chief Complaint: Lower Extremity Injury Narrative Narrative: Patient is a 67-year-old male with past medical history of peripheral vascular disease/arterial occlusion who is currently on Coumadin. He was at the [facility] roughly 2 months ago where he had [...] states has been taking his medications as [facility] Medical History Coronary artery disease Hyperlipidemia Hypertension [...] given. [facility] and he will [...] % (Auto) 59.0 Lymph % (Auto) 26.2 [place] % (Auto) 11.3 H Eos % (Auto) [...] (Auto) Neut % (Auto) Lymph % (Auto) [place] % (Auto) Eos % (Auto) Baso % (Auto) Absolute Neuts (auto) Absolute Lymphs (auto) Nucleated RBC % PT INR APTT Sodium Potassium Chloride Carbon Dioxide Anion Gap BUN Creatinine Estim Creat Clear Calc Est GFR (MDRD) Af Amer Est GFR (MDRD) Non-Af BUN/Creatinine Ratio Glucose Lactic Acid 2.3 H* Calcium Management Discussion w/another healthcare provider: Hand Scraper Critical Care Time Critical Care Time: Yes Critical care time (excluding procedures): Discussing w/Patient &/or Family/CareGiver, Discussing w/Consultants, Arranging Admission or Transfer and - (Please note critical care time of 33 minutes) Discharge Plan Triage Chief Complaint: Lower Extremity Injury ED Provider: Christopher Fontaine Dx/Rx/DC Orders Clinical Impression: Arterial occlusion, lower extremity, Hypertension, 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 Call [facility] ([phone]) or report to the closest Emergency Room. Call 911 if necessary. 11/19/22 0649 <Electronically signed by Christopher Fontaine DO> Cosigner Signature (if applicable): CC: [facility] ~ Signed [facility] Work Phone: Evaluation noteNo assessment information available [facility] Work Phone: Evaluation note* Diagnosis PAD (peripheral artery disease) (HCC)- Primary Peripheral vascular disease, unspecified PAD (peripheral artery disease) (HCC) Peripheral vascular disease, unspecified [facility] Stenosis of superficial femoral [...] bronchitis with exacerbation [facility] Diagnosis PAD (peripheral artery disease) (HCC)- Primary Peripheral vascular disease, unspecified documented in this encounter [facility] note* Diagnosis Cellulitis of toe of left [...] bronchitis with exacerbation documented in this encounter [facility] note* Diagnosis Cellulitis of toe of left [...] kidney failure, unspecified [facility] Outpatient Procedure (Routine) - Authorized Specialty Diagnoses / Procedures Referred By Contsigrid t Referred To [facility] Diagnoses PAD (peripheral artery disease) ([facility]) Procedures PVR ANK PRESS GRACIELA VAS LAB NON-INVAS PHYSIOLOGIC STD EXTREMITY ART 2 LEVEL Marsha Lucas DO [address] [place] [address] [facility] [address] [place] [address] Referral ID Status Reason Start Date Expiration Date Visits Requested Visits Authorized [id number] Authorized Auto-Generat ed Referral 07/04/2024 06/03/2025 1 1 * Outpatient Procedure (Routine) - Authorized Specialty Diagnoses / Procedures Referred By Contac t Referred To Contact [facility] Diagnoses PAD (peripheral artery disease) (HCC) Procedures US LEG ARTERIAL PERIPH UNL VAS LAB DUP-SCAN LXTR ART/ARTL BPGS UNI/LMTD STUDY Marsha Lucas DO [address] [place] [address] [facility] [address] [address] Referral ID Status Reason Start Date Expiration Date Visits Requested Visits Authorized [id number] Authorized Auto-Generat ed Referral 07/04/2024 06/03/2025 1 1 [facility] for referral (narrative)* Outpatient Procedure (Routine) - New Request Specialty Diagnoses / Procedures Referred By Contac t Referred To Contact [facility] Diagnoses PAD (peripheral artery disease) (HCC) Procedures PVR ANK PRESS GRACIELA VAS LAB NON-INVAS PHYSIOLOGIC STD EXTREMITY ART 2 LEVEL Dari Esparza DO [address] [place] [address] [facility] [address] [address] Referral ID Status Reason Start Date Expiration Date Visits Requested Visits Authorized [id number] New Request Auto-Generat ed Referral 07/25/2024 07/25/2025 1 1 * Outpatient Procedure (Routine) - New Request Specialty Diagnoses / Procedures Referred By Contac t Referred To Contact [facility] Diagnoses PAD (peripheral artery disease) (HCC) Procedures US LEG ARTERIAL PERIPH UNL VAS LAB DUP-SCAN LXTR ART/ARTL BPGS UNI/LMTD STUDY Dari Esparza DO [address] [place] [address] [facility] [address] [address] Referral ID Status Reason Start Date Expiration Date Visits Requested Visits Authorized [id number] New Request Auto-Generat ed Referral 07/25/2024 07/25/2025 1 1 [facility] Medication Prior Authorization - Pending Review Specialty Diagnoses / Procedures Referred By Vanessa mendez Referred To Contact Jeanne Whiethead MD [address] [address] Phone: tel: fax: Referral ID Status Reason Start Date Expiration Date V isits Requested Visits Authorized [id number] Pending Review 1 1 [facility]No reason for referral information [facility] Work Phone: Chief Complaint and Reason for Visit Chief Complaint LOWER EXTREMITY Chief Complaint LEG PAIN Chief Complaint Admit Date LAB WORK June 26, 2024 7: 30am LAB WORK June 27, 2024 5 :00am LABWORK July 07, 2024 5 :00am [facility] July 11, 2024 5:00am [facility] July 14, 2024 5:00am [facility] July 15, 2024 4:00am LABWORK July 21, 2024 5 :00am [facility] WORK July 29 5:00am LABWORK August 04, 2024 5:00am [facility] WORK September 23, 2024 4: 00am Chief Complaint Admit Date LABWORK July 07, 2024 5 :00am [facility] WORK July 11, 2024 5:00am [facility] WORK July 14, 2024 5:00am [facility] WORK July 15, 2024 4:00am LABWORK July 21, 2024 5 :00am [facility] WORK July 29 5:00am LABWORK August 04, 2024 5:00am [facility] WORK September 23, 2024 4: 00am [facility] LAB WORK 2024 6 :50am LABWORK October 13, 2024 5:0 0am Chief Complaint Admit Date LABWORK July 21, 2024 5 :00am [facility] LAB WORK July 29 5:00am LABWORK August 04, 2024 5:00am [facility] WORK September 23, 2024 4: 00am [facility] WORK 2024 6 :50am [facility] LAB WORK October 06, 2024 4 :00am LABWORK October 13, 2024 5:0 0am LABWORK October 27, 2024 5:00a m Chief Complaint Admit Date [facility] LAB WORK July 29 5:00am LABWORK August 04, 2024 5:00am [facility] WORK September 23, 2024 4: 00am [facility] WORK 2024 6 :50am [facility] WORK October 06, 2024 4 :00am LABWORK October 13, 2024 5:0 0am [facility] LAB WORK October 20, 2024 4:00 am [...] Date/ Time Advance Directives No September 04, 2 016 1:33pm Living Will No December 20, 2021 1 1:06am [employer]ker No December 20, 2021 11:06am Advance Directive Response Recorded Date/ Time Advance Directives No September 04, 2 016 1:33pm Living Will No November 19, 2022 5 :07am [employer] Broker No November 19, 2022 5:07am Date Activated [...] Date/ Time Advance Directives No September 04, 2 016 1:33pm Summary Purpose Additional Source Comments [...] Team Status: Active Member Role Status Dates [facility] Family Provider Active [facility] Primary Care Provider Active Team Status: Inactive Member Role Status Dates [facility] Primary Care Provider Active Dr. Christopher Fontaine , DO Emergency Provider Active Pan Dumper Relationship Specialty Start Date End Date [facility] [address] [place] [address] PCP - General 05/23/24 Pan Dumper Relationship Specialty Start Date End Date [facility] [address] [place] [address] PCP - General 05/23/24 Pan Dumper Relationship Specialty Start Date End Date [facility] [address] [place] [address] PCP - General 05/23/24 Pan Dumper Relationship Specialty Start Date End Date [facility] [address] [place] [address] PCP - General 05/23/24 Pan Dumper Relationship Specialty Start Date End Date [facility] [address] [place] [address] PCP - General 05/23/24 Pan Dumper Relationship Specialty Start Date End Date [place] [address] [place] [address] PCP - General 05/23/24 Pan Dumper Relationship Specialty Start Date End Date [facility] [address] [place] [address] PCP - General 05/23/24 Pan Dumper Relationship Specialty Start Date End Date [facility] [address] [place] [address] PCP - General 05/23/24 Pan Dumper Relationship Specialty Start Date End Date [facility] [address] [place] [address] PCP - General 05/23/24 Pan Dumper Relationship Specialty Start Date End Date [facility] [address] [facility] [place] [address] PCP - General 05/23/24 Pan Dumper Relationship Specialty Start Date End Date [facility] [address] [facility] [place] [address] PCP - General 05/23/24 Pan Dumper Relationship Specialty Start Date End Date [facility] [address] [place] [address] PCP - General 05/23/24 Pan Dumper Relationship Specialty Start Date End Date [facility] [address] [facility] [place] [address] PCP - General 05/23/24 Team Status: Active Member Role Status Dates [facility] Primary Care Provider Active Start: June 26, 2024 Melo RHOADES Attending Provider Active Star t: June 26, 2024 Team Status: Active Member Role Status Dates [facility] Primary Care Provider Active Start: June 27, 2024 Melo RHOADES Attending Provider Active Star t: June 27, 2024 Team Status: Active Member Role Status Dates [facility] Primary Care Provider Active Start: July 07, 2024 Melo RHOADES Attending Provider Active Star t: July 07, 2024 Team Status: Active Member Role Status Dates [facility] Primary Care Provider Active Start: July 11, 2024 Melo RHOADES Attending Provider Active Star t: July 11, 2024 Team Status: Active Member Role Status Dates [facility] Primary Care Provider Active Start: July 14, 2024 Melo RHOADES Attending Provider Active Star t: July 14, 2024 Team Status: Active Member Role Status Dates [facility] Primary Care Provider Active Start: July 15, 2024 Melo RHOADES Attending Provider Active Star t: July 15, 2024 Melo RHOADES Referring Provider Active Star t: July 15, 2024 Team Status: Active Member Role Status Dates [facility] Primary Care Provider Active Start: July 21, 2024 Melo RHOADES Attending Provider Active Star t: July 21, 2024 Team Status: Active Member Role Status Dates [facility] Primary Care Provider Active Start: July 29, 2024 Melo RHOADES Attending Provider Active Star t: July 29, 2024 Team Status: Active Member Role Status Dates [facility] Primary Care Provider Active Start: August 04, 2024 Melo RHOADES Attending Provider Active Star t: August 04, 2024 Team Status: Inactive Member Role Status Dates [facility] Primary Care Provider Active Start: September 23, 2024 End: September 23, 2024 Melo RHOADES Attending Provider Active Star t: September 23, 2024 End: September 23, 2024 Melo RHOADES Referring Provider Active Star t: September 23, 2024 End: September 23, 2024 Team Status: Active Member Role Status Dates [facility] Primary Care Provider Active Start: 2024 Melo RHOADES Attending Provider Active Star t: 2024 Team Status: Active Member Role Status Dates [facility] Primary Care Provider Active Start: October 06, 2024 Melo RHOADES Attending Provider Active Star t: October 06, 2024 Team Status: Active Member Role Status Dates [facility] Primary Care Provider Active Start: October 13, 2024 Melo RHOADES Attending Provider Active Star t: October 13, 2024 Team Status: Active Member Role Status Dates [facility] Primary Care Provider Active Start: October 20, 2024 Melo RHOADES Attending Provider Active Star t: October 20, 2024 Team Status: Inactive Member Role Status Dates [facility] Primary Care Provider Active Start: 2024 End: 2024 Melo RHOADES Attending Provider Active Star t: 2024 End: 2024 Team Status: Active Member Role Status Dates [facility] Primary Care Provider Active Start: October 27, 2024 Melo RHOADES Attending Provider Active Star t: October 27, 2024 Team Status: Inactive Member Role Status Dates [facility] Primary Care Provider Active Start: October 13, 2024 End: October 13, 2024 Melo RHOADES Attending Provider Active Star t: October 13, 2024 End: October 13, 2024 Team Status: Active Member Role Status Dates [facility] Primary Care Provider Active Start: October 06, 2024 Melo RHOADES Attending Provider Active Star t: October 06, 2024 Melo RHOADES Referring Provider Active Star t: October 06, 2024 Team Status: Inactive Member Role Status Dates [facility] Primary Care Provider Active Start: October 27, 2024 End: October 27, 2024 Melo RHOADES Attending Provider Active Star t: October 27, 2024 End: October 27, 2024 Team Status: Inactive Member Role Status Dates [facility] Primary Care Provider Active Start: October 06, 2024 End: October 06, 2024 Melo RHOADES Attending Provider Active Star t: October 06, 2024 End: October 06, 2024 Melo RHOADES Referring Provider Active Star t: October 06, 2024 End: October 06, 2024 Team Status: Inactive Member Role Status Dates [facility] Primary Care Provider Active Start: October 20, [...] or prosecute any alcohol or drug abuse patient.[facility] the event this information is protected by the Federal Confidentiality of Alcohol and Drug Abuse Patient Records regulations: The Federal rules restrict any use of the information to criminally investigate or prosecute any alcohol or drug abuse patient.[facility] HospitalIn the event this information is protected by the Federal Confidentiality of Alcohol and Drug Abuse Patient Records regulations: The Federal rules restrict any use of the information to criminally investigate or prosecute any alcohol or drug abuse patient.[facility] HospitalIn the event this information is protected by the Federal Confidentiality of Alcohol and Drug Abuse Patient Records regulations: The Federal rules restrict any use of the information to criminally investigate or prosecute any alcohol or drug abuse patient.[facility] HospitalIn the event this information is protected by the Federal Confidentiality of Alcohol and Drug Abuse Patient Records regulations: The Federal rules restrict any use of the information to criminally investigate or prosecute any alcohol or drug abuse patient.[facility] HospitalIn the event this information is protected by the Federal Confidentiality of Alcohol and Drug Abuse Patient Records regulations: The Federal rules restrict any use of the information to criminally investigate or prosecute any alcohol or drug abuse patient.[facility] HospitalIn the event this information is protected by the Federal Confidentiality of Alcohol and Drug Abuse Patient Records regulations: The Federal rules restrict any use of the information to criminally investigate or prosecute any alcohol or drug abuse patient.[facility] HospitalIn the event this information is protected by the Federal Confidentiality of Alcohol and Drug Abuse Patient Records regulations: The Federal rules restrict any use of the information to criminally investigate or prosecute any alcohol or drug abuse patient.[facility] HospitalIn the event this information is protected by the Federal Confidentiality of Alcohol and Drug Abuse Patient Records regulations: The Federal rules restrict any use of the information to criminally investigate or prosecute any alcohol or drug abuse patient.[facility] HospitalIn the event this information is protected by the Federal Confidentiality of Alcohol and Drug Abuse Patient Records regulations: The Federal rules restrict any use of the information to criminally investigate or prosecute any alcohol or drug abuse patient.[facility] HospitalIn the event this information is protected by the Federal Confidentiality of Alcohol and Drug Abuse Patient Records regulations: The Federal rules restrict any use of the information to criminally investigate or prosecute any alcohol or drug abuse patient.[facility] HospitalIn the event this information is protected by the Federal Confidentiality of Alcohol and Drug Abuse Patient Records regulations: The Federal rules restrict any use of the information to criminally investigate or prosecute any alcohol or drug abuse patient.[facility] HospitalIn the event this information is protected by the Federal Confidentiality of Alcohol and Drug Abuse Patient Records regulations: The Federal rules restrict any use of the information to criminally investigate or prosecute any alcohol or drug abuse patient.[facility] HospitalIn the event this information is protected by the Federal Confidentiality of Alcohol and Drug Abuse Patient Records regulations: The Federal rules restrict any use of the information to criminally investigate or prosecute any alcohol or drug abuse patient.[facility] Reason for Visit (unrecogniz ed section and [...] UPWITH TESTING Procedures EST HVTI PATIENT Marsha Lucas, [address] [place] [address] Marsha Lucas DO [address] [place] [address] Referral ID Status Reason Start Date Expiration Date V isits Requested Visits Authorized [id number] New Request 07/25/2024 10/27/2024 1 1 Reason Comments Wound Check Left foot. Reason Comments Results Reason Comments [employer] FOR [employer] USE ONLY Reason Comments Wound Check Left toe (unrecognized sect ion and content) No Status Records FoundNo Status Records FoundNo Status Records FoundNo Status Records Found INFORMATION SOURCE (unrecogn ized section and content) DATE CREATED AUTHOR 07/27/2024 [facility] DATE CREATED AUTHOR AUTHOR'S ORGANIZ ATION 10/15/2024 [facility] DATE CREATED AUTHOR AUTHOR'S ORGANIZ ATION 12/18/2024 [facility] DATE CREATED AUTHOR AUTHOR'S ORGANIZ ATION 02/05/2025 [facility] FOR RECORDS PERTAINING TO PATIENTS WHO ARE [...] BE BASED ON THE PRIMARY CLINICAL RECORDS. [employer] provides no warranty or guarantee of the accuracy or completeness of information in this document.
[2025-02-06 08:52] LABS: CRP < 3.00 mg/L (0.0-3.0)
== END ==
LOC: OLS.ACW100 05:00
PROVIDERS: Visit Provider Family Medicine
DX: M86.172 Other acute osteomyelitis, left ankle and foot (principal); M62.81 Muscle weakness (generalized); I70.201 Unspecified atherosclerosis of native arteries of extremities, right leg; Z48.89 Encounter for other specified surgical aftercare
CPT/HCPCS: 36415; 86140